=== PATIENT | male | born 1935 | race Caucasian/White ===

== ENCOUNTER → 2018-03-07 08:05 | Outpatient (CLI) | payer MEDICARE, OTHER, SELFPAY ==
[2018-03-07 10:25] LABS: Hemoglobin A1c 7.3 % (4.2-6.3)
[2018-03-07 10:26] LABS: AST(SGOT) 14 U/L (15-37); Alanine Aminotransfer ALT/SGPT 21 U/L (16-61); Albumin, Serum 3.3 g/dL (3.2-5.0); Alkaline Phosphatase 52 U/L (45-117); Anion Gap 9 (5-15); BUN 22 mg/dL (7-18); BUN/Creat Ratio 17.5 RATIO (10-20); Bilirubin, Direct 0.11 mg/dL (0.00-0.30); Calcium,Total 9.2 mg/dL (8.5-10.1); Chloride 107 mmol/L (98-107); Cholesterol 133 mg/dL (200); Creatinine, Serum 1.26 mg/dL (0.70-1.30); EST Glomerular Filtration Rate 58 mL/min (>60); Est Glom Filt Rate - Afr Amer 71 mL/min (>60); Globulin 3.2 g/dL (2.2-4.2); Glucose 167 mg/dL (74-106); High Density Lipoprotein 42 mg/dL; Potassium 4.6 mmol/L (3.5-5.1); Protein, Total 6.5 g/dL (6.4-8.2); Sodium Level 143 mmol/L (136-145); Triglycerides 75 mg/dL; Very Low Density Lipoprotein 15 mg/dL (5-40)
== END ==
PROVIDERS: Visit Provider Family Medicine
DX: E11.9 Type 2 diabetes mellitus without complications (principal); E78.5 Hyperlipidemia, unspecified
CPT/HCPCS: 36415; 80048; 80061; 80076; 83036

== ENCOUNTER → 2018-04-05 11:00 | Outpatient (CLI) | payer MEDICARE, OTHER, SELFPAY ==
--- NOTE | 2018-04-05 11:07 | EKG12_ITS ---
Test Reason : PREOP Blood Pressure : / mmHG Vent. Rate : 066 BPM Atrial Rate : 065 BPM P-R Int : 190 ms QRS Dur : 126 ms QT Int : 394 ms P-R-T Axes : 064 -46 054 degrees QTc Int : 413 ms Normal sinus rhythm Left ventricular hypertrophy with QRS widening Abnormal ECG Confirmed by JULIÁN MARES, BRYANNA ([id number]), visual effects editor TAM ARCHULETA ([id number]) on 04/10/2018 3:39:48 PM Referred By: Brian Brown Confirmed By:BRYANNA GALLEGO MD
== END ==
PROVIDERS: Family Provider Family Medicine; PCP Family Medicine; Referring Provider Surgery; Visit Provider Surgery
DX: Z01.818 Encounter for other preprocedural examination (principal); Z95.1 Presence of aortocoronary bypass graft
CPT/HCPCS: 93005

== ENCOUNTER 2018-04-19 13:42 | Inpatient (IN) | payer MEDICARE, OTHER, SELFPAY ==
[2018-04-19 10:24] LABS: Hematocrit 45.7 % (40-54); Hemoglobin 14.6 g/dl (13.0-16.5); Mean Corp Hgb Conc 31.9 g/gl (32-36); Mean Corpuscular Hgb 31.2 pg (27.0-32.0); Mean Corpuscular Volume 97.6 fL (80-94); Mean Platelet Vol. 10.5 fl (6.2-12.0); Platelet Count 171 K/mm3 (150-450); RBC Distribution Width CV 14.2 % (11.6-14.6); RBC Distribution Width SD 50.4 fl (35.1-43.9); Red Blood Count 4.68 M/mm3 (4.6-6.2); White Blood Count 17.8 K/mm3 (4.4-11.0)
[2018-04-19 10:26] LABS: Scan Indicated on CBC? Y/N NO
[2018-04-19 10:31] VITALS: BP 156/74; PULSE 52; RESP 14; TEMP 36.4; O2SAT 95; BMI 29.5
[2018-04-19 11:00] LABS: Bedside Glucose 144 mg/dL (70-110)
--- NOTE | 2018-04-19 13:49 | PCM.HP.STD ---
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 (5) Coronary artery disease Status: Chronic (6) Dyslipidemia Status: Chronic (7) History of pulmonary embolism Status: Chronic (8) Peripheral arterial disease Status: Chronic (9) Obstructive sleep apnea Status: Chronic (10) Hypertension Status: Chronic (11) History of bladder cancer Status: Chronic History of Present Illness Date of Admission: 04/19/18 Chief Complaint: Leukocytosis preoperative The patient is a 82 year old M with multiple comorbidities including coronary artery disease status post CABG in 2007, left CEA, tumor, TURBT om 09/17 amd 11/17 history of bladder and a small 3 tumor resection in October 2017 in [place] was scheduled for robotic assisted laparoscopic right inguinal hernia repair with mesh by Dr. Brown but was canceled because of leukocytosis. WBC count was found 17.8 thousand. There is no differential. A1c 7.3 in March 2018. Patient further said he has increased frequency, urgency for last few weeks along with chronic urinary incontinence. He sometimes have intermittent micturition and dribbling urine for a few weeks. Recently moved to [facility] and does not have a urologist was supposed to see Dr. Phillip next week. Denies fever, chills, URI symptoms, shortness of breath, chest pressure or palpitation. Sitting did not had major chest pain/ID or cardiac problem since bypass surgery in 2004. He also had right femoropopliteal bypass surgery. He had recent angiogram which shows 100% occlusion of [place] SFA and bypass but he has good collaterals to vessel runoff distally and foot. Right lower leg is little red but no tenderness or induration. 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) Coronary artery disease (Chronic) Dyslipidemia (Chronic) History of pulmonary embolism (Chronic) Peripheral arterial disease (Chronic) Obstructive sleep apnea (Chronic) Hypertension (Chronic) History of bladder cancer (Chronic) Medical History: Medical History (Last Updated 04/05/18 @ 10:13 by Priya Swan) Coronary artery disease I25.10 Diabetes E11.9 High cholesterol E78.00 History of pulmonary thrombosis Z86.711 PVD (peripheral vascular disease) I73.9 Sleep apnea G47.30 Hypertension I10 Allergies No Known Allergies Allergy (Verified 04/19/18 10:26) Home Medications: Ambulatory Orders Medication Instructions Recorded cilostazol 100 mg tablet 100 mg PO BID 04/05/18 clopidogrel 75 mg tablet 75 mg PO DAILY 04/05/18 lisinopril 20 mg tablet 20 mg PO BID tab 04/05/18 lovastatin 40 mg tablet 40 mg PO DAILY 04/05/18 metformin 1,000 mg tablet 1,000 mg PO BID 04/05/18 Cholecalciferol (Vitamin D3) 2,000 unit PO DAILY 04/10/18 [Vitamin D3] Cinnamon Bark [Cinnamon] 1,000 mg PO BID 04/10/18 Metoprolol Succinate [Toprol Xl] 50 mg PO BID 04/10/18 [place]-3 Fatty Acids/Fish Oil [Fish 1 each PO BID 04/10/18 Oil 1,000 mg Capsule] RX: Aspirin E.C. [Ecotrin] 81 mg PO DAILY@0800 04/10/18 Clopidogrel Bisulfate [Plavix] 75 mg PO DAILY 04/19/18 Surgical History: Surgical History (Last Updated 04/05/18 @ 10:02 by Priya Swan) History of carotid endarterectomy Z98.890 History of heart bypass surgery Z95.1 History of left cataract extraction Z98.42 History of tonsillectomy and adenoidectomy Z98.890 history of surgery for bladder tumors history right leg bypass Smoking Status: Former smoker - *Family History Paternal Family History: Family History (Last Updated 04/05/18 @ 10:03 by Priya Swan) Sister Breast cancer Diabetes Mother Diabetes Brother Heart disease Hypertension History Items: No pertinent history Review of Systems Constitutional: Denies: Chills, Fever, Weight Change HEENT: Denies: Head Aches, Sinus Congestion, Sinus Drainage Cardiovascular: Denies: Chest Pain, Palpitations Respiratory: Reports: Cough - NO cough, chronic. Denies: Shortness of breath at rest, Sputum production Gastrointestinal: Denies: Abdominal Pain, Nausea, Vomiting Genitourinary: Reports: Frequency, Hematuria, Incontinence, Nocturia, Urgency. Denies: Dysuria Musculoskeletal: Reports: Joint Pain. Denies: Joint Tenderness Skin: Reports: Skin Changes - Right lower leg. Denies: Rash, Wounds Neurological: Denies: Numbness, Tingling, Focal weakness Psychiatric: Denies: Anxiety, Depression, Homicidal Ideations, Suicidal Ideations Hematologic/ Lymphatic: Denies: Easy Bruising, Easy Bleeding VTE Information - Inpt Only VTE Present on Admission: No VTE Mechan Device Prophylaxis: None VTE Pharm Prophylaxis ordered?: Yes Patient Problems: Active and Suspected Problems (Last Updated 04/05/18 @ 10:13 by Priya Swan) Leukocytosis (Acute) Lower urinary tract symptoms (Acute) - Physical Exam General: Alert, Oriented x3, Cooperative HEENT: Atraumatic, PERRLA, EOMI, Normocephalic Neck: Supple, No JVD, Negative Carotid Bruits Lungs: Clear to auscultation, No rhonchi, No wheeze, No rales, Diminished Cardiovascular: Regular rate, Regular Rhythm, Normal S1, Normal S2, No murmurs Abdomen: Bowel Sounds Present, Soft, Non Tender, Non-Distended Extremities: Capillary Refill Less than 3 Seconds, Edema - Bilateral lower leg mild edema. Skin: Rash Present - Right lower leg erythematous. Musculoskeletal: No Tenderness to Palpation of Joints or Extremities, Arthritic Changes Neurological: Cranial nerves II-XII grossly intact, Neuro grossly intact Psych/Mental Status: Normal Affect, Appropriate Vital Signs Temp Pulse Resp BP Pulse Ox 97.5 F L 52 L 14 156/74 H 95 04/19/18 10:31 04/19/18 10:31 04/19/18 10:31 04/19/18 10:31 04/19/18 10:31 Oxygen Delivery Method Room Air Weight: 236 lb 5.369 oz Body Mass Index (BMI) 29.5 Laboratory Tests Past 24 Hrs 04/19/18 10:16 WBC 17.8 H RBC 4.68 Hgb 14.6 Hct 45.7 MCV 97.6 H MCH 31.2 MCHC 31.9 L RDW 14.2 RDW Differential 50.4 H Plt Count 171 MPV 10.5 POC Glucose 04/19/18 10:42 POC Glucose 144 H Assessment/Plan All Active Problems (Last Updated 04/05/18 @ 10:13 by Priya Swna) Leukocytosis (Acute) Lower urinary tract symptoms (Acute) The patient is a 82 year old M with multiple comorbidities including coronary artery disease status post CABG in 2007, left CEA, tumor, TURBT om 09/17 amd 11/17 history of bladder and a small 3 tumor resection in October 2017 in [place] was scheduled for robotic assisted laparoscopic right inguinal hernia repair with mesh by Dr. Brown but was canceled because of leukocytosis. WBC count was found 17.8 thousand. There is no differential. Patient further said he has increased frequency, urgency, nocturia for last few weeks along with chronic urinary incontinence. In urology outpatient note, mentioned he has sometimes blood in the urine. He sometimes have intermittent micturition and dribbling urine for a few weeks. Recently moved to [facility]. He saw Dr. Phillip on April 03, 2018. Denies fever, chills, URI symptoms, shortness of breath, chest pressure or palpitation. The patient did not had major chest pain/ID or cardiac problem since bypass surgery in 2007. He also had right femoropopliteal bypass surgery. He had recent angiogram which shows 100% occlusion of [place] SFA and bypass but he has good collaterals to vessel runoff distally and foot. He had negative nuclear stress test in November 2016. EF 61%. Right lower leg is little red but no tenderness or induration. 1. Leukocytosis with recent onset lower urinary tract symptoms suspicion of possible UTI history of bladder cancer and multiple TURBT: [facility]. UA with urine culture ordered. I do not see urgency for starting antibiotic before U/A patient is not having burning micturition or fever. After you have any urine culture is collected, patient to be started on ceftriaxone [address] Phillip called and informed and would like to see the patient. Urology consult. CRP ordered. Blood culture and chest x-ray PA and lateral ordered. 2 cardiovascular disease: Coronary artery disease status post CABG in 2007, left carotid endarterectomy, peripheral arterial disease of the right lower extremity status post femoropopliteal and total occlusion of [place] and graft: Continue aspirin, Plavix and cilostazol. Venous Doppler of lower extremity ordered Right inguinal reducible hernia: laparoscopic right inguinal hernia surgery is deferred. 3. Diabetes mellitus type 2: Last A1c 7.3 in March 2018. Accu-Chek before meals and at bedtime and cover with NovoLog sliding scale. Hold metformin. 4. Other chronic comorbidities include hypertension, dyslipidemia, obesity grade 3: Home medication reconciliation done. Code Visit Inpatient E&M: 94869 Init Hosp L3
--- NOTE | 2018-04-19 14:00 | HP.PCM_ITS ---
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 (5) Coronary artery disease Status: Chronic (6) Dyslipidemia Status: Chronic (7) History of pulmonary embolism Status: Chronic (8) Peripheral arterial disease Status: Chronic (9) Obstructive sleep apnea Status: Chronic (10) Hypertension Status: Chronic (11) History of bladder cancer Status: Chronic History of Present Illness Date of Admission: 04/19/18 Chief Complaint: Leukocytosis preoperative The patient is a 82 year old M with multiple comorbidities including coronary artery disease status post CABG in 2007, left CEA, tumor, TURBT om 09/17 amd 11/17 history of bladder and a small 3 tumor resection in October 2017 in [place] was scheduled for robotic assisted laparoscopic right inguinal hernia repair with mesh by Dr. Brown but was canceled because of leukocytosis. WBC count was found 17.8 thousand. There is no differential. A1c 7.3 in March 2018. Patient further said he has increased frequency, urgency for last few weeks along with chronic urinary incontinence. He sometimes have intermittent micturition and dribbling urine for a few weeks. Recently moved to [facility] and does not have a urologist was supposed to see Dr. Phillip next week. Denies fever, chills, URI symptoms, shortness of breath, chest pressure or pa lpitation. Sitting did not had major chest pain/MO or cardiac problem since bypass surgery in 2004. He also had right femoropopliteal bypass surgery. He had recent angiogram which shows 100% occlusion of [place] SFA and bypass but he has good collaterals to vessel runoff distally and foot. Right lower leg is little red but no tenderness or induration. 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) Coronary artery disease (Chronic) Dyslipidemia (Chronic) History of pulmonary embolism (Chronic) Peripheral arterial disease (Chronic) Obstructive sleep apnea (Chronic) Hypertension (Chronic) History of bladder cancer (Chronic) Medical History: Medical History (Last Updated 04/05/18 @ 10:13 by Priya Swan) Coronary artery disease I25.10 Diabetes E11.9 High cholesterol E78.00 History of pulmonary thrombosis Z86.711 PVD (peripheral vascular disease) I73.9 Sleep apnea G47.30 Hypertension I10 Allergies No Known Allergies Allergy (Verified 04/19/18 10:26) Home Medications: Ambulatory Orders Medication Instructions Recorded cilostazol 100 mg tablet 100 mg PO BID 04/05/18 clopidogrel 75 mg tablet 75 mg PO DAILY 04/05/18 lisinopril 20 mg tablet 20 mg PO BID tab 04/05/18 lovastatin 40 mg tablet 40 mg PO DAILY 04/05/18 metformin 1,000 mg tablet 1,000 mg PO BID 04/05/18 Cholecalciferol (Vitamin D3) 2,000 unit PO DAILY 04/10/18 [Vitamin D3] Cinnamon Bark [Cinnamon] 1,000 mg PO BID 04/10/18 Metoprolol Succinate [Toprol Xl] 50 mg PO BID 04/10/18 [place]-3 Fatty Acids/Fish Oil [Fish 1 each PO BID 04/10/18 Oil 1,000 mg Capsule] RX: Aspirin E.C. [Ecotrin] 81 mg PO DAILY@0800 04/10/18 Clopidogrel Bisulfate [Plavix] 75 mg PO DAILY 04/19/18 Surgical History: Surgical History (Last Updated 04/05/18 @ 10:02 by Priya Swan) History of carotid endarterectomy Z98.890 History of heart bypass surgery Z95.1 History of left cataract extraction Z98.42 History of tonsillectomy and adenoidectomy Z98.890 history of surgery for bladder tumors history right leg bypass Smoking Status: Former smoker - *Family History Paternal Family History: Family History (Last Updated 04/05/18 @ 10:03 by Priya Swan) Sister Breast cancer Diabetes Mother Diabetes Brother Heart disease Hypertension History Items: No pertinent history Review of Systems Constitutional: Denies: Chills, Fever, Weight Change HEENT: Denies: Head Aches, Sinus Congestion, Sinus Drainage Cardiovascular: Denies: Chest Pain, Palpitations Respiratory: Reports: Cough - NO cough, chronic. Denies: Shortness of breath at rest, Sputum production Gastrointestinal: Denies: Abdominal Pain, Nausea, Vomiting Genitourinary: Reports: Frequency, Hematuria, Incontinence, Nocturia, Urgency. Denies: Dysuria Musculoskeletal: Reports: Joint Pain. Denies: Joint Tenderness Skin: Reports: Skin Changes - Right lower leg. Denies: Rash, Wounds Neurological: Denies: Numbness, Tingling, Focal weakness Psychiatric: Denies: Anxiety, Depression, Homicidal Ideations, Suicidal Ideatio ns Hematologic/ Lymphatic: Denies: Easy Bruising, Easy Bleeding VTE Information - Inpt Only VTE Present on Admission: No VTE Mechan Device Prophylaxis: None VTE Pharm Prophylaxis ordered?: Yes Patient Problems: Active and Suspected Problems (Last Updated 04/05/18 @ 10:13 by Priya Swan) Leukocytosis (Acute) Lower urinary tract symptoms (Acute) - Physical Exam General: Alert, Oriented x3, Cooperative HEENT: Atraumatic, PERRLA, EOMI, Normocephalic Neck: Supple, No JVD, Negative Carotid Bruits Lungs: Clear to auscultation, No rhonchi, No wheeze, No rales, Diminished Cardiovascular: Regular rate, Regular Rhythm, Normal S1, Normal S2, No murmurs Abdomen: Bowel Sounds Present, Soft, Non Tender, Non-Distended Extremities: Capillary Refill Less than 3 Seconds, Edema - Bilateral lower leg mild edema. Skin: Rash Present - Right lower leg erythematous. Musculoskeletal: No Tenderness to Palpation of Joints or Extremities, Arthritic Changes Neurological: Cranial nerves II-XII grossly intact, Neuro grossly intact Psych/Mental Status: Normal Affect, Appropriate Vital Signs Temp Pulse Resp BP Pulse Ox 97.5 F L 52 L 14 156/74 H 95 04/19/18 10:31 04/19/18 10:31 04/19/18 10:31 04/19/18 10:31 04/19/18 10:31 Oxygen Delivery Method Room Air Weight: 236 lb 5.369 oz Body Mass Index (BMI) 29.5 Laboratory Tests Past 24 Hrs 04/19/18 10:16 WBC 17.8 H RBC 4.68 Hgb 14.6 Hct 45.7 MCV 97.6 H MCH 31.2 MCHC 31.9 L RDW 14.2 RDW Differential 50.4 H Plt Count 171 MPV 10.5 POC Glucose 04/19/18 10:42 POC Glucose 144 H Assessment/Plan All Active Problems (Last Updated 04/05/18 @ 10:13 by Priya Swan) Leukocytosis (Acute) Lower urinary tract symptoms (Acute) The patient is a 82 year old M with multiple comorbidities including coronary artery disease status post CABG in 2007, left CEA, tumor, TURBT om 09/17 amd 11/17 history of bladder and a small 3 tumor resection in October 2017 in [place] was scheduled for robotic assisted laparoscopic right inguinal hernia repair with mesh by Dr. Brown but was canceled because of leukocytosis. WBC count was found 17.8 thousand. There is no differential. Patient further said he has increased frequency, urgency, nocturia for last few weeks along with chronic urinary incontinence. In urology outpatient note, mentioned he has sometimes blood in the urine. He sometimes have intermittent micturition and dribbling urine for a few weeks. Recently moved to [facility]. He saw Dr. Phillip on April 03, 2018. Denies fever, chills, URI symptoms, shortness of breath, chest pressure or palpitation. The patient did not had major chest pain/MO or cardiac problem s molly bypass surgery in 2007. He also had right femoropopliteal bypass surgery. He had recent angiogram which shows 100% occlusion of [place] SFA and bypass but he has good collaterals to vessel runoff distally and foot. He had negative nuclear stress test in November 2016. EF 61%. Right lower leg is little red but no tenderness or induration. 1. Leukocytosis with recent onset lower urinary tract symptoms suspicion of possible UTI history of bladder cancer and multiple TURBT: [facility]. UA with urine culture ordered. I do not see urgency for starting antibiotic before U/A patient is not having burning micturition or fever. After you have any urine culture is collected, patient to be started on ceftriaxone [address] Phillip called and informed and would like to see the patient. Urology consult. CRP ordered. Blood culture and chest x-ray PA and lateral ordered. 2 cardiovascular disease: Coronary artery disease status post CABG in 2007, left carotid endarterectomy, peripheral arterial disease of the right lower extremity status post femoropopliteal and total occlusion of [place] and graft: Continue aspirin, Plavix and cilostazol. Venous Doppler of lower extremity ordered Right inguinal reducible hernia: laparoscopic right inguinal hernia surgery is deferred. 3. Diabetes mellitus type 2: Last A1c 7.3 in March 2018. Accu-Chek before meals and at bedtime and cover with NovoLog sliding scale. Hold metformin. 4. Other chronic comorbidities include hypertension, dyslipidemia, obesity grade 3: Home medication reconciliation done. Code Visit Inpatient E&M: 40326 Init Hosp L3
[2018-04-19 14:05] VITALS: BMI 29.2
--- NOTE | 2018-04-19 14:06 | US_ITS ---
STUDY: RENAL ULTRASOUND - COMPLETE REASON FOR EXAM: Male, 82 years old. Renal insufficiency TECHNIQUE: Ultrasound evaluation of the kidneys was performed with real-time and static abad-scale imaging. COMPARISON: None available. FINDINGS: RIGHT KIDNEY: Normal location of the right kidney, which is normal in size. The right kidney measures 13.0 cm. There is a normal cortex of the right kidney. There is no right renal mass or cyst. There are no right renal calculi. There is no right hydronephrosis. DISTAL RIGHT URETER: There is non-visualization of the distal right ureter. There is no demonstrated right ureterovesical junction calculus. There is no demonstrated right ureteral jet. LEFT KIDNEY: Normal location of the left kidney, which is normal in size. The left kidney measures 12.5 cm. There is a normal cortex of the left kidney. There is a 6.5 x 5.1 x 5.0 cm cyst in the upper pole of the left kidney. There are no left renal calculi. There is no left hydronephrosis. DISTAL LEFT URETER: There is non-visualization of the distal left ureter. There is no demonstrated left ureterovesical junction calculus. There is no demonstrated left ureteral jet. BLADDER: The urinary bladder is partially distended and appears unremarkable. US/Kidney and Bladder IMPRESSION: Simple cyst in the left kidney. Otherwise, normal kidneys. Electronically Signed: Maycol Diaz, at 19:48 EDT Tel , Service support ,
--- NOTE | 2018-04-19 14:15 | VDLE_ITS ---
Reason For Study: Redness of leg RIGHT LEFT GSV is normal. GSV is normal. CFV is compressible, spontaneous, phasic, CFV is compressible, spontaneous, phasic, competent and demonstrates normal competent, and demonstrates normal augmentation. augmentation. FV is compressible, spontaneous, phasic, FV is compressible, spontaneous, phasic, competent and demonstrates normal competent and demonstrates normal augmentation. augmentation. POP V is compressible, spontaneous, phasic, POP V is compressible, spontaneous, phasic, competent and demonstrates normal competent and demonstrates normal augmentation. augmentation. T/P Trunk is compressible. T/P Trunk is compressible. PTV is compressible. PTV is compressible. RT PerV is compressible. LT PerV is compressible. Procedure Exam performed portable in patient room. A preliminary report was called and/or faxed to [facility] @ 3:05 pm. Interpretation Summary No evidence for acute deep venous thrombosis bilateral lower extremities with patent and compressible bilateral great saphenous veins. Ordering Physician: Gómez Joseph Referring Physician: Livan Mcfarland Performed By: Priya Shore RVT, RDCS and Student
[2018-04-19 15:30] LABS: BUN 15 mg/dL (7-18); Calcium,Total 9.1 mg/dL (8.5-10.1); Chloride 108 mmol/L (98-107); EST Glomerular Filtration Rate 76 mL/min (>60); Est Glom Filt Rate - Afr Amer 92 mL/min (>60); Estimated Creatinine Clearance 70.42 ml/min; Glucose 135 mg/dL (74-106); Potassium 4.6 mmol/L (3.5-5.1); Sodium Level 142 mmol/L (136-145)
[2018-04-19 15:31] LABS: Anion Gap 4 (5-15); CRP 5.87 mg/L (0.0-3.0)
--- NOTE | 2018-04-19 15:32 | RAD_ITS ---
STUDY: X-RAY CHEST REASON FOR EXAM: Male, 82 years old. Cough TECHNIQUE: Frontal and lateral views of the chest COMPARISON: None. FINDINGS: The lungs are clear. There are no pleural effusions. There is no pneumothorax. The heart is normal in size. The patient is status post sternotomy and coronary artery bypass. The visualized osseous structures are within normal limits. RAD/Chest PA and Lateral IMPRESSION: No acute thoracic pathology. Electronically Signed: Maycol Diaz, at 16:35 EDT Tel , Service support ,
--- NOTE | 2018-04-19 16:18 | CON.PCM_ITS ---
Reason for Consult Date of Consultation: 04/19/18 Reason for Consultation: History of bladder cancer History of Present Illness: The patient is a 82 year old male with a history of a very large bladder tumor removed and after this he had BCG therapy that he had recurrence another course of BCG therapy he is new to the area and today he was going to have a hernia surgery which was canceled he was admitted to the hospital was asked to see the patient while he was in the hospital so we did a review of his symptoms and today also did a cystoscopy 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) Coronary artery disease (Chronic) Dyslipidemia (Chronic) History of pulmonary embolism (Chronic) Peripheral arterial disease (Chronic) Obstructive sleep apnea (Chronic) Hypertension (Chronic) History of bladder cancer (Chronic) Medical History: Medical History (Last Updated 04/05/18 @ 10:13 by Priya Swan) Coronary artery disease I25.10 Diabetes E11.9 High cholesterol E78.00 History of pulmonary thrombosis Z86.711 PVD (peripheral vascular disease) I73.9 Sleep apnea G47.30 Hypertension I10 Allergies No Known Allergies Allergy (Verified 04/19/18 10:26) Home Medications: Ambulatory Orders Medication Instructions Recorded cilostazol 100 mg tablet 100 mg PO BID 04/05/18 clopidogrel 75 mg tablet 75 mg PO DAILY 04/05/18 lisinopril 20 mg tablet 20 mg PO BID tab 04/05/18 lovastatin 40 mg tablet 40 mg PO DAILY 04/05/18 metformin 1,000 mg tablet 1,000 mg PO BID 04/05/18 Aspirin E.C. [Ecotrin] 81 mg PO DAILY@0800 04/10/18 Cholecalciferol (Vitamin D3) 2,000 unit PO DAILY 04/10/18 [Vitamin D3] Cinnamon Bark [Cinnamon] 1,000 mg PO BID 04/10/18 Metoprolol Succinate [Toprol Xl] 50 mg PO BID 04/10/18 [place]-3 Fatty Acids/Fish Oil [Fish 1 each PO BID 04/10/18 Oil 1,000 mg Capsule] Clopidogrel Bisulfate [Plavix] 75 mg PO DAILY 04/19/18 Surgical History: Surgical History (Last Updated 04/05/18 @ 10:02 by Priya Swan) History of carotid endarterectomy Z98.890 History of heart bypass surgery Z95.1 History of left cataract extraction Z98.42 History of tonsillectomy and adenoidectomy Z98.890 history of surgery for bladder tumors history right leg bypass Surgical History: - - TURBT multiple Lives: Spouse/ Significant Other Smoking Status: Former smoker Tobacco Use: Non-smoker Alcohol: None Drugs: None - *Family History Paternal Family History: Family History (Last Updated 04/05/18 @ 10:03 by Priya Swan) Sister Breast cancer Diabetes Mother Diabetes Brother Heart disease Hypertension History Items: No pertinent history Review of Systems Constitutional: Denies: Chills, Fever, Weight Change HEENT: Denies: Head Aches, Sinus Congestion, Sinus Drainage Cardiovascular: Denies: Chest Pain, Palpitations Respiratory: Denies: Cough, Shortness of breath at rest, Sputum production Gastrointestinal: Denies: Abdominal Pain, Nausea, Vomiting Genitourinary: Denies: Dysuria Musculoskeletal: Denies: Joint Pain, Joint Tenderness Skin: Denies: Rash, Wounds Neurological: Denies: Numbness, Tingling, Focal weakness Psychiatric: Denies: Anxiety, Depression, Homicidal Ideations, Suicidal Ideat ions Hematologic/ Lymphatic: Denies: Easy Bruising, Easy Bleeding Physical Exam - Physical Exam Vital Signs Temp 97.5 F L 04/19/18 10:31 Pulse 52 L 04/19/18 10:31 Resp 14 04/19/18 10:31 BP 156/74 H 04/19/18 10:31 Pulse Ox 95 04/19/18 10:31 Intake & Output 04/17/18 04/18/18 04/19/18 23:59 23:59 23:59 Weight: 106 kg General: Alert, Oriented x3 HEENT: Atraumatic Oral: Moist Mucosa Neck: Supple Lungs: Normal air movement Cardiovascular: Regular rate Abdomen: Soft Rectal: Exam deferred Laboratory Tests Past 24 Hrs 04/19/18 04/19/18 10:16 15:00 WBC 17.8 H RBC 4.68 Hgb 14.6 Hct 45.7 MCV 97.6 H MCH 31.2 MCHC 31.9 L RDW 14.2 RDW Differential 50.4 H Plt Count 171 MPV 10.5 Sodium 142 Potassium 4.6 Chloride 108 H Carbon Dioxide 30.0 Anion Gap 4 L BUN 15 Creatinine 1.00 Estim Creat Clear Calc 70.42 Est GFR (MDRD) Af Amer 92 Est GFR (MDRD) Non-Af 76 BUN/Creatinine Ratio 15.0 Glucose 135 H Calcium 9.1 C-React Prot Ext Range 5.87 H Assessment/Plan All Active Problems (Last Updated 04/05/18 @ 10:13 by Priya Swan) Leukocytosis (Acute) Lower urinary tract symptoms (Acute) 82-year-old male has a history of bladder cancer, surgery was canceled today because of elevated white blood count I do not think this is related to his bladder cancer today we did a cystoscopy which was positive for multiple recurrences within his bladder.
--- NOTE | 2018-04-19 16:18 | PCM.OPRPT ---
Report of Operation Date of Procedure: 04/19/18 Pre-Operative Diagnosis: History of bladder cancer Post-Operative Diagnosis: Same Surgery/Procedure Performed:: Cystoscopy Description of Surgical Findings:: 10-year-old with a history of bladder cancer, penis was prepped and draped in usual sterile fashion went into the bladder with a flexible cystoscope, the entire length the urethra is normal, the prostate was normal, the prostate was slight enlargement of the prostate but no significant obstruction, within the bladder trigone was identified left and right ureteral orifice was normal he did have some papillary tumors in the posterior aspect of the bladder multiple areas within the posterior aspect and right lateral wall the bladder that appeared to be recurrence appears to have 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 Type of Anesthesia:: Local Drains: None - Admit VTE Documentation VTE Present on Admission: No
[2018-04-19] MEDS: Heparin Injection (Vial) 5,000 UNIT/ML VIAL 5000 UNIT SC (16:43)
[2018-04-19] MEDS: Cilostazol 50 MG Tablet 100 MG PO (16:44)
[2018-04-19 16:51] LABS: Bedside Glucose 135 mg/dL (70-110)
[2018-04-19 16:53] VITALS: BP 188/95; PULSE 70; RESP 18; TEMP 36.7; O2SAT 95
[2018-04-19 17:00] VITALS: BP 188/95; PULSE 70
[2018-04-19] MEDS: Metoprolol Tartrate 50 MG Tablet PO (17:00)
[2018-04-19] MEDS: 0.9% Normal Saline 1,000 ML 75 ML IV (19:01)
[2018-04-19 20:28] VITALS: BP 147/93; PULSE 66; RESP 18; TEMP 36.3; O2SAT 95
[2018-04-19 20:47] LABS: Bacteria 0 SEEN /hpf (None Seen); Mucous, Urine 0 SEEN /hpf (<or=2+); White Blood Cells 0 SEEN /hpf (0-5)
[2018-04-19 21:06] LABS: Color, Urine Yellow (Yellow); Glucose, Dipstick 100 mg/dl (Normal); Ketone-Dipstick Negative (Negative); Leukocyte Esterase-Dipstick Negative /ul (Negative); Nitrite-Dipstick Negative (Negative); Occult Blood-Urine 250 /ul (Negative); Protein-Dipstick 15 mg/dl (Negative); Urine Bilirubin Dipstick Negative (Negative); Urine Urobilinogen 1 mg/dl (Normal); Urine pH 6.5 (5.0 - 8.0)
[2018-04-19 21:25] LABS: Red Blood Cells-Urine 10-25 SEEN /hpf (0-5); Squamous Epithelial Cells - UA 0-5 SEEN /hpf (0-5)
[2018-04-19 21:26] LABS: Urine Clarity Sl Cldy (Clear)
[2018-04-19 21:28] LABS: Amorphous Sediment 1+ URATE
[2018-04-19] MEDS: Lisinopril 20 MG Tablet PO (21:51)
[2018-04-19] MEDS: Insulin Lispro 100 UNIT/ML INSULN.PEN SQ (21:51)
[2018-04-19] MEDS: Atorvastatin Calcium 10 MG Tablet PO (21:51)
[2018-04-19] MEDS: Ceftriaxone 1 GM/50 ML BAG IV (21:53)
[2018-04-19 21:56] LABS: Bedside Glucose 162 mg/dL (70-110)
[2018-04-20 02:22] VITALS: BP 138/83; PULSE 68; RESP 18; TEMP 36.8; O2SAT 96
[2018-04-20] MEDS: Insulin Lispro 100 UNIT/ML INSULN.PEN SQ (06:03)
[2018-04-20 06:05] LABS: Bedside Glucose 165 mg/dL (70-110)
[2018-04-20 06:37] LABS: Absolute Neutrophil Count 3.2 X10^3/uL (2.0-7.7); Basophil# 0.05 X10^3/uL; Basophil% 0.3 % (0-1); Eosinophil# 0.26 X10^3/uL; Eosinophils% 1.7 % (0-5); Hematocrit 41.5 % (40-54); Hemoglobin 13.3 g/dl (13.0-16.5); Lymphocyte % 72.8 % (19-41); Mean Corpuscular Hgb 30.9 pg (27.0-32.0); Mean Corpuscular Volume 96.3 fL (80-94); Mean Platelet Vol. 10.9 fl (6.2-12.0); Monocyte# 0.71 X10^3/uL; Monocyte% 4.5 % (0-10); Neutrophil # 3.23 X10^3/uL (2.7-7.7); Neutrophil % 20.6 % (47-70); Platelet Count 164 K/mm3 (150-450); RBC Distribution Width CV 14.1 % (11.6-14.6); RBC Distribution Width SD 49.7 fl (35.1-43.9); Red Blood Count 4.31 M/mm3 (4.6-6.2); White Blood Count 15.7 K/mm3 (4.4-11.0)
[2018-04-20 06:41] LABS: Differential Indicated SCAN CRITERIA MET; POSITIVE COUNT NO; POSITIVE DIFFERENTIAL YES; POSITIVE MORPHOLOGY YES
[2018-04-20 07:11] LABS: Differential Comment SCANNED; Reactive Lymphocyte 3+
[2018-04-20 07:52] VITALS: BP 154/95; PULSE 69; RESP 18; TEMP 35.8; O2SAT 95
[2018-04-20] MEDS: Aspirin E.C. 81 MG Tablet PO (07:56)
[2018-04-20] MEDS: Cilostazol 50 MG Tablet 100 MG PO (07:56)
--- NOTE | 2018-04-20 09:41 | PCM.PN.HOSP ---
Patient Problems: Active and Suspected Problems (Last Updated 04/05/18 @ 10:13 by Priya Swan) Leukocytosis (Acute) Lower urinary tract symptoms (Acute) Vitals/I&O's: Vital Signs Temp Pulse Resp BP Pulse Ox 96.5 F L 69 18 154/95 H 95 04/20/18 07:52 04/20/18 07:52 04/20/18 07:52 04/20/18 07:52 04/20/18 07:52 Oxygen Delivery Method Room Air Weight: 233 lb 11.04 oz Body Mass Index (BMI) 29.2 Intake and Output for Last 24 Hours 04/18/18 04/19/18 04/20/18 23:59 23:59 23:59 Intake Total 1532 / 1532 Output Total 1850 / 1850 Balance -318 / -318 Laboratory Results 04/19/18 10:16: WBC 17.8 H, RBC 4.68, Hgb 14.6, Hct 45.7, MCV 97.6 H, MCH 31.2, MCHC 31.9 L, RDW 14.2, RDW Differential 50.4 H, Plt Count 171, MPV 10.5 04/19/18 10:42: POC Glucose 144 H 04/19/18 15:00: Sodium 142, Potassium 4.6, Chloride 108 H, Carbon Dioxide 30.0, Anion Gap 4 L, BUN 15, Creatinine 1.00, Estim Creat Clear Calc 70.42, Est GFR (MDRD) Af Amer 92, Est GFR (MDRD) Non-Af 76, BUN/Creatinine Ratio 15.0, Glucose 135 H, Calcium 9.1, C-React Prot Ext Range 5.87 H 04/19/18 16:42: POC Glucose 135 H 04/19/18 20:35: Urine Color Yellow, Urine Clarity Sl Cldy, Urine pH 6.5, Ur Specific [place] 1.010, Urine Protein 15 H, Urine Glucose (UA) 100 H, Urine Ketones Negative, Urine Occult Blood 250 H, Urine Nitrite Negative, Urine Bilirubin Negative, Urine Urobilinogen 1 H, Ur Leukocyte Esterase Negative, Urine RBC 10-25 SEEN, Urine WBC 0 SEEN, Ur Squamous Epith Cells 0-5 SEEN, Amorphous Sediment 1+ URATE, Urine Bacteria 0 SEEN, Urine Mucus 0 SEEN 04/19/18 21:43: POC Glucose 162 H 04/20/18 05:29: WBC 15.7 H, RBC 4.31 L, Hgb 13.3, Hct 41.5, MCV 96.3 H, MCH 30.9, MCHC 32.0, RDW 14.1, RDW Differential 49.7 H, Plt Count 164, MPV 10.9, Immature Gran % (Auto) 0.100, Neut % (Auto) 20.6 L, Lymph % (Auto) 72.8 H, [place] % (Auto) 4.5, Eos % (Auto) 1.7, Baso % (Auto) 0.3, Absolute Neuts (auto) 3.2, Absolute Lymphs (auto) 11.40 H, Total Counted Not Reportable, Differential Comment SCANNED, Reactive Lymphocytes 3+ 04/20/18 06:01: POC Glucose 165 H Current Medications Acetaminophen (Tylenol) 650 mg PO Q6H PRN PRN PRN Reason: Mild Pain (scale 0-3)/T>100.7 Aspirin (Ecotrin) 81 mg PO DAILY@0800 [facility] Last Admin: 04/20/18 07:56 Dose: 81 mg Atorvastatin Calcium (Lipitor) 10 mg PO QHS [facility] Last Admin: 04/19/18 21:51 Dose: 10 mg Bisacodyl (Dulcolax) 10 mg RECTAL DAILY PRN PRN PRN Reason: Constipation Cholecalciferol (Vitamin D) 2,000 unit PO DAILY [facility] Cilostazol (Pletal) 100 mg PO BIDAC [facility] Last Admin: 04/20/18 07:56 Dose: 100 mg Clopidogrel Bisulfate (Plavix) 75 mg PO DAILY [facility] Dextrose (D50w Syringe) 0 gm IV X1 PRN; Protocol PRN Reason: Hypoglycemia Docusate Sodium (Colace) 200 mg PO BID PRN PRN PRN Reason: Constipation Glucagon () 1 mg IM .X1 PRN PRN Reason: Hypoglycemia Heparin Sodium (Porcine) (Heparin Na) 5,000 unit SC BID [facility] Last Admin: 04/19/18 21:52 Dose: Not Given Ceftriaxone Sodium (Rocephin) 1 gm in 50 mls @ 100 mls/hr IV Q24 [facility] Last Admin: 04/19/18 21:53 Dose: 100 mls/hr Insulin Human Lispro (Humalog Kwikpen (Bkc)) 0 unit SQ ACHS [facility]; Protocol Last Admin: 04/20/18 06:03 Dose: 1 u Lisinopril (Zestril) 20 mg PO BID [facility] Last Admin: 04/19/18 21:51 Dose: 20 mg Metoprolol Tartrate (Lopressor (Beta Shivani)) 50 mg PO BID [facility] Last Admin: 04/19/18 21:46 Dose: Not Given Ondansetron HCl (Zofran) 4 mg IV Q8H PRN PRN PRN Reason: Nausea Oxycodone HCl (Oxyir) 5 mg PO Q4H PRN PRN PRN Reason: Moderate Pain (pain scale 4-5) Polyethylene Glycol (Miralax) 17 gm PO DAILY [facility] Sodium Chloride () 5 - 30 ml IV UD PRN PRN Reason: SALINE FLUSH Medical Necessity - Tobacco Use Smoking Status: Former smoker Tobacco Use: Non-smoker Assessment/Plan All Active Problems (Last Updated 04/05/18 @ 10:13 by Priya Swan) Leukocytosis (Acute) Lower urinary tract symptoms (Acute)
[2018-04-20 10:46] VITALS: BP 145/90; PULSE 95; RESP 18; TEMP 35.9; O2SAT 96
[2018-04-20 10:47] VITALS: BP 145/90; PULSE 95
[2018-04-20] MEDS: Metoprolol Tartrate 50 MG Tablet PO (10:47)
[2018-04-20] MEDS: Clopidogrel Bisulfate 75 MG Tablet PO (10:48)
[2018-04-20] MEDS: Polyethylene Glycol 3350 17 GM PACKET PO (10:48)
[2018-04-20] MEDS: Lisinopril 20 MG Tablet PO (10:49)
--- NOTE | 2018-04-20 10:50 | DCINST_ITS ---
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) Coronary artery disease (Chronic) Dyslipidemia (Chronic) History of pulmonary embolism (Chronic) Peripheral arterial disease (Chronic) Obstructive sleep apnea (Chronic) Hypertension (Chronic) History of bladder cancer (Chronic) You will use the following diet at home:: Calorie/Carbohydrate Controlled (specify 1200, 1400, etc) - 1800 ADA diet, Cardiac Your food should be the consistency of: Regular Discharge Activity: May Not Drive Weight Bearing Status: Weight bearing as tolerated Call your doctor if you observe: Fever of 101 or Higher, Inability to urinate, Inability to have a bowel movement, Shortness of breath, Dizziness, Fainting spells, Swelling in the ankles, Chest pain Allergies/Adverse Reactions: Allergies No Known Allergies Allergy (Verified 04/19/18 10:26) Medications to take at Discharge cilostazol 100 mg tablet 100 mg PO BID 04/05/18 clopidogrel 75 mg tablet 75 mg PO DAILY 04/05/18 lisinopril 20 mg tablet 20 mg PO BID tab 04/05/18 lovastatin 40 mg tablet 40 mg PO DAILY 04/05/18 metformin 1,000 mg tablet 1,000 mg PO BID 04/05/18 Aspirin E.C. [Ecotrin] 81 mg PO DAILY@0800 04/10/18 Cholecalciferol (Vitamin D3) [Vitamin D3] 2,000 unit PO DAILY 04/10/18 Cinnamon Bark [Cinnamon] 1,000 mg PO BID 04/10/18 Metoprolol Succinate [Toprol Xl] 50 mg PO BID 04/10/18 [place]-3 Fatty Acids/Fish Oil [Fish Oil 1,000 mg Capsule] 1 each PO BID 04/10/18 Clopidogrel Bisulfate [Plavix] 75 mg PO DAILY 04/19/18 Primary Care Physician: Livan Mcfarland MD [Primary Care Provider] - Please follow up with your Primary Care Physician in: in 1-2 weeks Test Results: Test results from this visit will be discussed in further detail at your follow- up appointment, if applicable. Please Follow Up With: Brian Brown MD When: in 1-2 weeks to reschedule surgery Please Follow Up With: Joe Phillip MD When: call office to schedule
--- NOTE | 2018-04-20 10:51 | DS.PCM_ITS ---
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) Coronary artery disease (Chronic) Dyslipidemia (Chronic) History of pulmonary embolism (Chronic) Peripheral arterial disease (Chronic) Obstructive sleep apnea (Chronic) Hypertension (Chronic) History of bladder cancer (Chronic) Hospital Course and Treatment Summary of Care Provided: The patient is a 82 year old M with multiple comorbidities including coronary artery disease status post CABG in 2007, left CEA, tumor, TURBT om 09/17 amd 11/17 history of bladder and a small 3 tumor resection in October 2017 in [place] was scheduled for robotic assisted laparoscopic right inguinal hernia repair with mesh by Dr. Brown but was canceled because of leukocytosis. WBC count was found 17.8 thousand. There is no differential. Patient on further history was noticed that he has a stable increased frequency and urgency for last 2-3 weeks without burning micturition. His chronic urinary incontinence and dribbling of urine. Recently moved to [facility]. He saw Dr. Phillip on April 03, 2018. Denies fever, chills, URI symptoms, shortness of breath, chest pressure or palpitation. Right lower leg is little red but no tenderness or induration. 1. Leukocytosis with recent onset lower urinary tract symptoms suspicion of possible UTI history of bladder cancer and multiple TURBT: [facility] Venous Doppler of lower extremities was done and came out negative or DVT. Chest x-ray PA and lateral shows no acute pathology. UA was negative with WBC of 0, RBC 10-25 cells/2 mild microscopic hematuria, glucosuria, mild proteinuria 15. Blood cultures and urine cultures are pending. After urine sample was collected, 1 dose of IV ceftriaxone given empirically in view of history of complicated history of bladder cancer and possible UTI. After it was found, UA does not meet criteria for UTI, antibiotic discontinued. CRP elevated. No rash. Leukocytosis improved. Shows mainly lymphocyte predominance 72.8%, neutrophil 20.6. ID was consulted. It was concluded that patient does not have evidence of active infectious process; therefore no need for antibiotic. Patient need review of previous medical record of CBC to look for leukocytosis or evidence of CLL. If WBC continues to be high it needs hematology consult as an outpatient. For now patient is being discharged home without antibiotics and advised to follow-up with PCP, Dr. Livan Olsen to review previous medical record and do needful. 2. Bladder cancer status post cystoscopy with evidence of recurrent low-grade small papillary tumors: patient had cystoscopy by Dr. Phillip and was found prostate mild enlargement with no significant obstruction. There were some small papillary tumors on the posterior aspect of bladder and right lateral wall that appeared to be recurrent with low grade recurrence CIS as per operative note. Follow with Dr. Phillip. cardiovascular disease: Coronary artery disease status post CABG in 2007, left carotid endarterectomy, peripheral arterial disease of the right lower extremity status post femoropopliteal and total occlusion of nikolai and graft: Continue aspirin, Plavix and cilostazol. Venous Doppler of lower extremity ordered Right inguinal reducible hernia: laparoscopic right inguinal hernia surgery was postponed. Dr. Chao Brown was called and hospital update was exchanged. No infectious process was found and it was communicated to him. His office will schedule the patient for right inguinal laparoscopic hernia repair. 3. Diabetes mellitus type 2: Last A1c 7.3 in March 2018. Accu-Chek before meals and at bedtime and cover with NovoLog sliding scale. Hold metformin. 4. Other chronic comorbidities include hypertension, dyslipidemia, obesity grade 3: Home medication reconciliation done. Discharge medication reconciliation done. Follow-up instructions given. Discharge medication and follow-up instructions discussed with the patient along with his . Total time spent, exact 35 minutes, on discharge meds reconciliation, examination, more than half time spent on review of imaging and blood test and discussion with the patient and his on the discharge follow-up instructions. - Physical Exam General: Alert, Oriented x3, Cooperative HEENT: Atraumatic, PERRLA, EOMI, Normocephalic Neck: Supple, No JVD, Negative Carotid Bruits Lungs: Clear to auscultation, Normal air movement, No rhonchi, No wheeze, No rales Cardiovascular: Regular rate, Normal S1, Normal S2, No murmurs Abdomen: Bowel Sounds Present, Soft, Non Tender, Non-Distended Extremities: Capillary Refill Less than 3 Seconds, Edema - right leg slightly more edematous than left leg probably secondary to chronic nikolai SFA and femoropopliteal graft 100% occlusion with collateral circulation Skin: No rashes, No breakdown Musculoskeletal: No Tenderness to Palpation of Joints or Extremities Neurological: Cranial nerves II-XII grossly intact Psych/Mental Status: Normal Affect, Appropriate Vital Signs Temp Pulse Resp BP Pulse Ox 96.7 F L 95 18 145/90 H 96 04/20/18 10:46 04/20/18 10:47 04/20/18 10:46 04/20/18 10:47 04/20/18 10:46 Oxygen Delivery Method Room Air Weight: 233 lb 11.04 oz Body Mass Index (BMI) 29.2 Intake and Output for Last 24 Hours 04/18/18 04/19/18 04/20/18 23:59 23:59 23:59 Intake Total 1532 / 1532 Output Total 1850 / 1850 Balance -318 / -318 Laboratory Tests Past 24 Hrs 04/19/18 04/19/18 04/20/18 15:00 20:35 05:29 WBC 15.7 H RBC 4.31 L Hgb 13.3 Hct 41.5 MCV 96.3 H MCH 30.9 MCHC 32.0 RDW 14.1 RDW Differential 49.7 H Plt Count 164 MPV 10.9 Immature Gran % (Auto) 0.100 Neut % (Auto) 20.6 L Lymph % (Auto) 72.8 H [place] % (Auto) 4.5 Eos % (Auto) 1.7 Baso % (Auto) 0.3 Absolute Neuts (auto) 3.2 Absolute Lymphs (auto) 11.40 H Total Counted Not Reportable Differential Comment SCANNED Reactive Lymphocytes 3+ Sodium 142 Potassium 4.6 Chloride 108 H Carbon Dioxide 30.0 Anion Gap 4 L BUN 15 Creatinine 1.00 Estim Creat Clear Calc 70.42 Est GFR (MDRD) Af Amer 92 Est GFR (MDRD) Non-Af 76 BUN/Creatinine Ratio 15.0 Glucose 135 H Calcium 9.1 C-React Prot Ext Range 5.87 H Urine Color Yellow Urine Clarity Sl Cldy Urine pH 6.5 Ur Specific [place] 1.010 Urine Protein 15 H Urine Glucose (UA) 100 H Urine Ketones Negative Urine Occult Blood 250 H Urine Nitrite Negative Urine Bilirubin Negative Urine Urobilinogen 1 H Ur Leukocyte Esterase Negative Urine RBC 10-25 SEEN Urine WBC 0 SEEN Ur Squamous Epith Cells 0-5 SEEN Amorphous Sediment 1+ URATE Urine Bacteria 0 SEEN Urine Mucus 0 SEEN POC Glucose 04/20/18 04/19/18 04/19/18 06:01 21:43 16:42 POC Glucose 165 H 162 H 135 H 04/19/18 10:42 POC Glucose 144 H Discharge Activity: May Not Drive Weight Bearing Status: Weight bearing as tolerated Call your doctor if you observe: Fever of 101 or Higher, Inability to urinate, Inability to have a bowel movement, Shortness of breath, Dizziness, Fainting spells, Swelling in the ankles, Chest pain Home Medications: Medications to take at Discharge cilostazol 100 mg tablet 100 mg PO BID 04/05/18 clopidogrel 75 mg tablet 75 mg PO DAILY 04/05/18 lisinopril 20 mg tablet 20 mg PO BID tab 04/05/18 lovastatin 40 mg tablet 40 mg PO DAILY 04/05/18 metformin 1,000 mg tablet 1,000 mg PO BID 04/05/18 Aspirin E.C. [Ecotrin] 81 mg PO DAILY@0800 04/10/18 Cholecalciferol (Vitamin D3) [Vitamin D3] 2,000 unit PO DAILY 04/10/18 Cinnamon Bark [Cinnamon] 1,000 mg PO BID 04/10/18 Metoprolol Succinate [Toprol Xl] 50 mg PO BID 04/10/18 [place]-3 Fatty Acids/Fish Oil [Fish Oil 1,000 mg Capsule] 1 each PO BID 04/10/18 Clopidogrel Bisulfate [Plavix] 75 mg PO DAILY 04/19/18 Primary Care Physician: Livan Mcfarland MD [Primary Care Provider] - Please follow up with your Primary Care Physician in: in 1-2 weeks Please Follow Up With: Brian Brown MD When: in 1-2 weeks to reschedule surgery Please Follow Up With: Joe Phillip MD When: call office to schedule Medical Necessity - Tobacco Use Smoking Status: Former smoker Tobacco Use: Non-smoker Meaningful Use Info Meaningful Use Diagnoses (Choose all that apply): None applicable Code Visit Inpatient E&M: 07895 Disch Hosp
--- NOTE | 2018-04-20 11:08 | PCM.HP.ID ---
Problem List (1) Leukocytosis Status: Acute Reason for Consult: leukocytosis Consulted by: Dr. Joseph History of Present Illness: The patient is a 82 year old M with h/o CAD, bladder cancer who presented for elective R inguinal hernia repair. Found to have high wbc, surgery postponed, cxs sent, had cystoscopy done, started on ceftriaxone. Has felt fine. No new symptoms, no sick contacts, no new meds, no recent abx. Moved from [place], [place] in December. Does not recall ever being told he had abnormal wbc or h/o CLL. Has stable urinary frequency, no fever, no dysuria, no abd pain, no cough or SOB. No rash. Full ROS performed and neg except as noted above. 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) Coronary artery disease (Chronic) Dyslipidemia (Chronic) History of pulmonary embolism (Chronic) Peripheral arterial disease (Chronic) Obstructive sleep apnea (Chronic) Hypertension (Chronic) History of bladder cancer (Chronic) Allergies/Adverse Reactions: Allergies No Known Allergies Allergy (Verified 04/19/18 10:26) Home Medications: Ambulatory Orders Medication Instructions Recorded cilostazol 100 mg tablet 100 mg PO BID 04/05/18 clopidogrel 75 mg tablet 75 mg PO DAILY 04/05/18 lisinopril 20 mg tablet 20 mg PO BID tab 04/05/18 lovastatin 40 mg tablet 40 mg PO DAILY 04/05/18 metformin 1,000 mg tablet 1,000 mg PO BID 04/05/18 Aspirin E.C. [Ecotrin] 81 mg PO DAILY@0800 04/10/18 Cholecalciferol (Vitamin D3) 2,000 unit PO DAILY 04/10/18 [Vitamin D3] Cinnamon Bark [Cinnamon] 1,000 mg PO BID 04/10/18 Metoprolol Succinate [Toprol Xl] 50 mg PO BID 04/10/18 [facility]-3 Fatty Acids/Fish Oil [Fish 1 each PO BID 04/10/18 Oil 1,000 mg Capsule] Clopidogrel Bisulfate [Plavix] 75 mg PO DAILY 04/19/18 - Social History SMOKING STATUS:: Former smoker Vital Signs Temp Pulse Resp BP Pulse Ox 96.7 F L 95 18 145/90 H 96 04/20/18 10:46 04/20/18 10:47 04/20/18 10:46 04/20/18 10:47 04/20/18 10:46 Oxygen Delivery Method Room Air Weight: 106 kg Body Mass Index (BMI) 29.2 Laboratory Tests Past 24 Hrs 04/19/18 04/19/18 04/20/18 15:00 20:35 05:29 WBC 15.7 H RBC 4.31 L Hgb 13.3 Hct 41.5 MCV 96.3 H MCH 30.9 MCHC 32.0 RDW 14.1 RDW Differential 49.7 H Plt Count 164 MPV 10.9 Immature Gran % (Auto) 0.100 Neut % (Auto) 20.6 L Lymph % (Auto) 72.8 H Collier % (Auto) 4.5 Eos % (Auto) 1.7 Baso % (Auto) 0.3 Absolute Neuts (auto) 3.2 Absolute Lymphs (auto) 11.40 H Total Counted Not Reportable Differential Comment SCANNED Reactive Lymphocytes 3+ Sodium 142 Potassium 4.6 Chloride 108 H Carbon Dioxide 30.0 Anion Gap 4 L BUN 15 Creatinine 1.00 Estim Creat Clear Calc 70.42 Est GFR (MDRD) Af Amer 92 Est GFR (MDRD) Non-Af 76 BUN/Creatinine Ratio 15.0 Glucose 135 H Calcium 9.1 C-React Prot Ext Range 5.87 H Urine Color Yellow Urine Clarity Sl Cldy Urine pH 6.[address] 1.010 Urine Protein 15 H Urine Glucose (UA) 100 H Urine Ketones Negative Urine Occult Blood 250 H Urine Nitrite Negative Urine Bilirubin Negative Urine Urobilinogen 1 H Ur Leukocyte Esterase Negative Urine RBC 10-25 SEEN Urine WBC 0 SEEN Ur Squamous Epith Cells 0-5 SEEN Amorphous Sediment 1+ URATE Urine Bacteria 0 SEEN Urine Mucus 0 SEEN - Other Studies Radiology: [] reviewed Other Studies: [] Route of nutrition/ use of supplements: [] Nutritional Intake: [] IV Site: [] Ochoa Catheter: [] - Physical Exam General: Alert, Oriented x3, Cooperative, No apparent distress HEENT: Atraumatic, PERRLA, EOMI Neck: Supple, No Nodes Lungs: Clear to auscultation, Normal air movement Cardiovascular: Regular rate, Regular Rhythm, No murmurs Abdomen: Bowel Sounds Present, Soft, Non Tender, Non-Distended Extremities: No edema Skin: No rashes IV Site: Peripheral, without redness Musculoskeletal: No Tenderness to Palpation of Joints or Extremities Neurological: Cranial nerves II-XII grossly intact - Assessment/Plan Antibiotics: [] Assessment/Plan: [] Active and Suspected Problems (Last Updated 04/05/18 @ 10:13 by Priya Swan) Leukocytosis (Acute) Lower urinary tract symptoms (Acute) Lymphocytosis with no physical symptoms. Denies any past h/o CLL, no recent infections, no recent med changes. UA with no wbc seen. Bcx and ucx pending. No evidence of infection. Wbc slightly improved this AM. Ok for d/c home off of abx. Recommend PCP follow-up with repeat CBC and obtaining past cbc results from PCP in [employer] and from [facility]. D/w Dr. Joseph, thank you for this consultation.
--- NOTE | 2018-04-20 11:30 | CASEMGMT ---
RN CM ADMISSION CHART REVIEW NOTE: Pt scheduled for robotic assisted lap right inguinal hernia repair with mesh by Dr Brown and this was cancelled d/t leukocytosis. Admitted to [facility]. Cystocopy completed by Dr Phillip. Pt denied having Living will or HPOA and declined wanting any further information. Pharmacy is [facility] in [place]. Pt is alert/oriented x 3 and lives at home with his , independent with ambulation, and no discharge needs identified per nursing staff. Lizzy CHENGN RN CM
== END 2018-04-20 11:31 | disposition home or self-care (01) | DRG 816 ==
LOC: SDC 14:08
PROVIDERS: Surgery; Admitting Provider Internal Medicine; Family Provider Family Medicine; PCP Family Medicine; Referring Provider Internal Medicine; Visit Provider Internal Medicine
DX: D72.829 Elevated white blood cell count, unspecified (principal); R35.0 Frequency of micturition; R39.15 Urgency of urination; K40.90 Unilateral inguinal hernia, without obstruction or gangrene, not specified as recurrent; Z86.711 Personal history of pulmonary embolism; I73.9 Peripheral vascular disease, unspecified; E78.5 Hyperlipidemia, unspecified; I10 Essential (primary) hypertension; E11.9 Type 2 diabetes mellitus without complications; G47.33 Obstructive sleep apnea (adult) (pediatric); I25.10 Atherosclerotic heart disease of native coronary artery without angina pectoris; Z95.1 Presence of aortocoronary bypass graft; E66.9 Obesity, unspecified; Z68.29 Body mass index [BMI] 29.0-29.9, adult; Z87.891 Personal history of nicotine dependence; Z79.84 Long term (current) use of oral hypoglycemic drugs; C67.9 Malignant neoplasm of bladder, unspecified
CPT/HCPCS: 36415; 71046; 76770; 80048; 81001; 82962; 85025; 85027; 86140; 87040; 87086; 93970; J7030; J7120

== ENCOUNTER → 2018-04-26 09:50 | Outpatient (CLI) | payer MEDICARE, OTHER, SELFPAY ==
[2018-04-26 12:17] LABS: CRP < 2.90 mg/L (0.0-3.0)
[2018-04-26 12:24] LABS: Absolute Lymphocyte Count 8.31 X10^3/ul (0.83-4.51); Absolute Neutrophil Count 3.9 X10^3/uL (2.0-7.7); Basophil# 0.05 X10^3/uL; Basophil% 0.4 % (0-1); Eosinophil# 0.24 X10^3/uL; Eosinophils% 1.8 % (0-5); Hematocrit 43.2 % (40-54); Hemoglobin 13.8 g/dl (13.0-16.5); Lymphocyte # 8.31 X10^3/ul (4.0); Lymphocyte % 61.7 % (19-41); Mean Corp Hgb Conc 31.9 g/gl (32-36); Mean Corpuscular Hgb 31.8 pg (27.0-32.0); Mean Corpuscular Volume 99.5 fL (80-94); Mean Platelet Vol. 10.9 fl (6.2-12.0); Monocyte# 0.98 X10^3/uL; Monocyte% 7.3 % (0-10); Neutrophil # 3.87 X10^3/uL (2.7-7.7); Neutrophil % 28.7 % (47-70); Platelet Count 173 K/mm3 (150-450); RBC Distribution Width CV 14.6 % (11.6-14.6); RBC Distribution Width SD 51.7 fl (35.1-43.9); Red Blood Count 4.34 M/mm3 (4.6-6.2); White Blood Count 13.5 K/mm3 (4.4-11.0)
[2018-04-26 12:27] LABS: Differential Indicated SCAN CRITERIA MET; POSITIVE COUNT NO; POSITIVE DIFFERENTIAL YES; POSITIVE MORPHOLOGY YES
[2018-04-27 13:27] LABS: Pathologist Review Reviewed
== END ==
PROVIDERS: Family Provider Family Medicine; PCP Family Medicine; Visit Provider Family Medicine
DX: D72.829 Elevated white blood cell count, unspecified (principal)
CPT/HCPCS: 36415; 85025; 86140

== ENCOUNTER 2018-05-12 09:33 | Day surgery (SDC) | payer MEDICARE, OTHER, SELFPAY ==
--- NOTE | 2018-05-12 | BLB_PTH ---
PATIENT: RANULFO NEGRETE LOC: [facility] [place] U#:[id number] AGE/SX: 83/M ROOM: RE05/12/[address]: Dr. Joe Phillip MD : 1935 BED: DIS: 05/12/2018 SPEC #: [id number] RECD: 05/12/18 12:56 STATUS: EMY RETommy #: [id number] LEN: 05/12/18 00:[address]: Joe Phillip DEPT: SURGICAL PATHOLOGY RECD BY: Gerald Hooker ENTERED: 05/12/18 12:57 SP TYPE: TURB OTHR DR: Dr. Livan Mcfarland MD Tissues: Urinary bladder, NOS Procedures: Surgery Specimen Level V HEADER OPERATION: Cysto, transurethral resection bladder, [employer] PRE-OP DIAGNOSIS: History bladder tumor TISSUE SUBMITTED: Bladder tumor MICROSCOPIC DIAGNOSIS Urine bladder tumor, transurethral resection: Urothelial carcinoma. See Comment. 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 Lymph-Vascular invasion - not identified Microscopic extent of tumor - tumor invades subepithelial connective tissue (lamina propria). Additional pathologic findings - focal chronic cystitis with vascular ectasia. The above summary is in compliance with [employer] (CAP) Cancer Protocols Checklist and [place] Joint Committee on Cancer (AJCC), Staging Manual, 8th Ed. Case has been reviewed in consultation with Dr. Valdez who concurs with the above diagnosis. IDC:[email or web address] MICROSCOPIC DESCRIPTION Slides are reviewed. GROSS DESCRIPTION Received is one container labeled with the patient name and designated bladder tumor. The specimen consists of three irregular fragments of light bean soft tissue that in aggregate measure 0.4 x 0.3 x 0.1 cm. The specimen is totally submitted in one cassette. / SJ:trina 05/12/18 TC: 0 CPT: 94976
--- NOTE | 2018-05-12 | IMM_PTH ---
PATIENT: RANULFO NEGRETE LOC: [facility] [place] U#:[id number] AGE/SX: 83/M ROOM: RE05/12/[address]: Dr. Joe Phillip MD : 1935 BED: DIS: 05/12/2018 SPEC #: [id number] RECD: 05/15/18 12:06 STATUS: EMY REQ #: [id number] LEN: 05/12/18 00:[address]: Joe Phillip DEPT: IMMUNOHISTOCHEMISTRY RECD BY: Linsey Casiano ENTERED: 05/15/18 12:07 SP TYPE: IMMUNO OTHR DR: Dr. Livan Mcfarland MD Tissues: Urinary bladder, NOS Procedures: P53 (initial) CK19 (add) CK20 (add) CK7 (add) CD44 (add) PHYSICIAN & INSTITUTION [place] [address] SPECIMEN INFORMATION: Tissue Source: Bladder tumor Clinical Info: History bladder tumor Specimen Number: [id number] CPT code: 43970, 37076 x3 METHODOLOGY: Deparaffinized sections of prefer/formalin-fixed tissue or PAP/DQ stained slides are incubated with monoclonal/polyclonal antibodies/oligonucleotide probes. Localization is made via biotin free immunoperoxidase method. Appropriate controls are performed and reacted as expected. Results on target cell population are indicated in the following table: RESULTS: ANTIBODY / CLONE RESULT anti-CD44 (SP37) positive P53 (DO-7) positive CK7 (OV-TL12/30) positive CK20 (KS20.8) positive These tests were developed and their performance characteristics determined by [facility]. They may not have been cleared or approved by the U.S. Food and Drug Administration. The FDA has determined that such clearance or approval is not necessary. 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 This case was reviewed with Dr. Valdez who concurs with the above diagnosis. AM:homer 05/16/18
[2018-05-12 10:20] VITALS: BP 142/69; PULSE 53; RESP 16; TEMP 37.3; O2SAT 99; BMI 29.2
[2018-05-12 11:25] LABS: Bedside Glucose 159 mg/dL (70-110)
[2018-05-12] MEDS: Cefazolin 2 GM in 0.9% Normal Saline 100 ML IV (11:42)
--- NOTE | 2018-05-12 11:50 | DCINST_ITS ---
Discharge Diet: Light diet - advance as tolerated Discharge Activity: May Drive, May Shower Call your doctor if your incision/area has: Continuous Slow Oozing, Sudden Increased Bleeding, Increased Pain/ Swelling, Increased Redness, Foul Smelling Discharge, Swelling at the incision site Instructions: Treating Bladder Cancer: TUR (Transurethral Resection) Allergies/Adverse Reactions: Allergies No Known Allergies Allergy (Verified 05/08/18 13:17) Medications to take at Discharge cilostazol 100 mg tablet 100 mg PO BID 04/05/18 lisinopril 20 mg tablet 20 mg PO BID tab 04/05/18 lovastatin 40 mg tablet 40 mg PO DAILY 04/05/18 metformin 1,000 mg tablet 1,000 mg PO BID 04/05/18 Aspirin E.C. [Ecotrin] 81 mg PO DAILY@0800 04/10/18 Cholecalciferol (Vitamin D3) [Vitamin D3] 2,000 unit PO DAILY 04/10/18 Cinnamon Bark [Cinnamon] 1,000 mg PO BID 04/10/18 Metoprolol Succinate [Toprol Xl] 50 mg PO BID 04/10/18 [place]-3 Fatty Acids/Fish Oil [Fish Oil 1,000 mg Capsule] 1 each PO BID 04/10/18 Clopidogrel Bisulfate [Plavix] 75 mg PO DAILY 04/19/18 Ciprofloxacin [Cipro] 500 mg PO BID #6 tablet 05/12/18 Ibuprofen 600 mg PO 4X/DAY #10 tablet 05/12/18 The following prescriptions were given: Ciprofloxacin [Cipro] 500 mg PO BID #6 tablet Ibuprofen 600 mg PO 4X/DAY #10 tablet Primary Care Physician: Livan Mcfarland MD [Primary Care Provider] - Test Results: Test results from this visit will be discussed in further detail at your follow- up appointment, if applicable. Please Follow Up With: Joe Phillip MD When: in 2 weeks, please call to make an appointment.
--- NOTE | 2018-05-12 12:21 | PCM.OPRPT ---
Report of Operation Date of Procedure: 05/12/18 Pre-Operative Diagnosis: Bladder tumors multiple Post-Operative Diagnosis: Same Surgery/Procedure Performed:: Transurethral resection of multiple tumors within the bladder it was in the left lateral wall right lateral wall posterior wall dome anterior, instillation of mitomycin-C Description of Surgical Findings:: 83-year-old male taken back to the operating room after smooth induction of anesthesia he was placed in dorsolithotomy position the penis and testicles are prepped and draped in usual sterile fashion went in the bladder with a 24 Brazilian noncontinuous flow resectoscope got inside the bladder and identified a tumor in the posterior aspect of the wall right lateral wall left wall wall and then it tumors up in the dome of the bladder multiple tumors throughout the bladder these were carpet-like tumors but carpeting the entire layer of the bladder and the location described so I first resected the left lateral wall tumors I get the tissues here the rest of the tumors I cauterized extensively is quite a large extensive amount of cauterization involving the dome of the bladder the posterior aspect of the wall bladder the left and right wall the bladder after cauterize these extensively then I placed a drain the bladder there is no bleeding put a catheter in the bladder instilled 40 cc of mitomycin-C and then took the catheter out patient anesthetic was reversed taken back to PACU good condition plan is to follow-up in the office to review the biopsies and will continue with cystoscopy with surveillance. Type of Anesthesia:: General Drains: none - Admit VTE Documentation VTE Present on Admission: No VTE Mechan Device Prophylaxis: SCD's
[2018-05-12 12:30] VITALS: BP 142/69; BP 185/92; PULSE 81; RESP 16; TEMP 36.4; O2SAT 91
[2018-05-12 12:45] VITALS: BP 142/69; BP 151/80; PULSE 66; RESP 16; O2SAT 94
[2018-05-12 12:54] VITALS: BP 142/69; BP 151/80; PULSE 65; RESP 16; TEMP 36.2; O2SAT 94
[2018-05-12 13:36] VITALS: BP 142/69; BP 145/82; PULSE 67; RESP 16; TEMP 36.3; O2SAT 94
== END 2018-05-12 13:42 | disposition home or self-care (01) ==
LOC: SDC 09:34 → AC 09:57 → MS3 11:14 → AC 11:28
PROVIDERS: Family Provider Family Medicine; PCP Family Medicine; Referring Provider Urology; Visit Provider Urology
PROC: 0TBB8ZZ Excision of Bladder, Via Natural or Artificial Opening Endoscopic (ICD-10-PCS; CPT 51720; principal; 2018-05-12 11:45)
DX: C67.7 Malignant neoplasm of urachus (principal); K40.30 Unilateral inguinal hernia, with obstruction, without gangrene, not specified as recurrent; N30.20 Other chronic cystitis without hematuria; E11.9 Type 2 diabetes mellitus without complications; Z95.1 Presence of aortocoronary bypass graft; Z79.82 Long term (current) use of aspirin; Z87.891 Personal history of nicotine dependence; E78.00 Pure hypercholesterolemia, unspecified; Z86.718 Personal history of other venous thrombosis and embolism
CPT/HCPCS: 51720; 52240; 82962; 88307; 88341; 88342; J7120; J2405; J3490; J9280

== ENCOUNTER → 2018-06-01 17:03 | Outpatient (CLI) | payer MEDICARE, OTHER, SELFPAY ==
[2018-05-12 10:20] VITALS: BMI 29.2
--- OUTSIDE RECORDS SUMMARY | 2018-07-27 23:07 | XMS RPT_ITS ---
:1935 Author Organization OHIP Support Name Relationship Address Phone SVEN NEGRETE Unavailable [id number] + [place] [address] R Unavailable Unavailable Unavailable ANSHUTZ, DELTHA Unavailable [address] + [place] [address] R Unavailable Unavailable Unavailable ANSHUTZ, DELTHA Unavailable [address] + [place] [address] R Unavailable Unavailable Unavailable ANSHUTZ, DELTHA Unavailable [address] + [place] [address] R Unavailable Unavailable Unavailable ANSHUTZ, DELTHA Unavailable [address] + [place] [address] R Unavailable Unavailable Unavailable ANSHUTZ, DELTHA Unavailable [address] + [place] [address] R Unavailable Unavailable Unavailable ANSHUTZ, DELTHA Unavailable [address] + [place] [address] R Unavailable Unavailable Unavailable ANSHUTZ, DELTHA Unavailable [address] + [place] [address] R Unavailable Unavailable Unavailable ANSHUTZ, DELTHA Unavailable [address] + [place] [address] R Unavailable Unavailable Unavailable ANSHUTZ, DELTHA Unavailable [address] + [place] [address] R Unavailable Unavailable Unavailable ANSHUTZ, DELTHA Unavailable [address] + [place] [address] R Unavailable Unavailable Unavailable R Unavailable Unavailable Unavailable R Unavailable Unavailable Unavailable Care Team Providers Name Role Phone Livan Mcfarland Attending Unavailable Brian Brown Attending Unavailable Mcfarland, Livan Referring Unavailable Brian Brown Attending Unavailable CecilabrShawn escobedoony Referring Unavailable Mcfarland, Livan Primary Care Unavailable BellLorna lombardol Attending Unavailable Shawn Brownony Referring Unavailable Mcfarland, Livan Primary Care Unavailable Cceilabretta, Brian Consulting Unavailable Mcfarland, Livan Primary Care Unavailable Jake, Gómez Admitting Unavailable Kenji, Tremayne Consulting Unavailable Jake, Gómez Attending Unavailable Jake, Gómez Referring Unavailable Joseph, Chao Consulting Unavailable Jaek, Gómez Admitting Unavailable Jake, Gómez Attending Unavailable Jake, Gómez Referring Unavailable Mcfarland, Livan Primary Care Unavailable Kenji, Tremayne Consulting Unavailable Jake, Gómez Consulting Unavailable Jake, Gómez Admitting Unavailable Jake, Gómez Attending Unavailable Jake, Gómez Referring Unavailable Mcfarland, Livan Primary Care Unavailable Kenji, Tremayne Consulting Unavailable Joseph, Chao Consulting Unavailable Jake, Gómez Consulting Unavailable Ranulfo Merino Attending Unavailable Mcfarland, Livan Primary Care Unavailable Kenji, Joe Ellis Attending Unavailable Kenji, Tremayne Referring Unavailable Mcfarland, Livan Primary Care Unavailable Bell, [place] Attending Unavailable Shawn Brownony Referring Unavailable Cebul, Chao Attending Unavailable Jake, Gómez Referring Unavailable Kenji, Joe Ellis Attending Unavailable Kenji, Tremayne Referring Unavailable Mcfarland, Livan Primary Care Unavailable Mcfarland, Livan Attending Unavailable Mcfarland, Livan Primary Care Unavailable PROBLEMS PROBLEMS DATE TYPE CONDITION / CODE ATTENDING STATUS SOURCE 06/02/2018 Unknown E11.9 - Type 2 Livan Mcfarland Active [facility] mellitus [facility] without complications Hospital / E11.9(ICD-10) Repository 05/11/2018 Unknown M79.89 - Other Cebul, Chao Active [facility] specified soft tissue Community disorders / Hospital M79.89(ICD-10) Repository 04/10/2018 Unknown Z01.818 - Encounter Bell, [place] Active [facility] for other Community preprocedural Hospital examination / Repository Z01.818(ICD-10) 05/04/2018 Unknown 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, Abhilash Active [facility] aortocoronary bypass Community graft / Z95.1(ICD-10) Hospital Repository 05/04/2018 Unknown R94.31 - Abnormal Bell, Abhilash Active [facility] electrocardiogram Community [ECG] [EKG] / Hospital R94.31(ICD-10) Repository 05/04/2018 Unknown I10 - Essential Bell, Abhilash Active [facility] (primary) hypertension Community / I10(ICD-10) Hospital Repository 05/04/2018 Unknown I25.10 - Bell, Abhilash Active [facility] Atherosclerotic heart Community disease of [facility] coronary artery Repository without angina pectoris / I25.10(ICD-10) PROCEDURES PROCEDURES No Procedure Records FoundRESULTS RESULTS BASIC METABOLIC Collected: 06/02/2018 Status: F Source: [place] PROFILE (BMP) 2:52 PM [facility] REPOSITORY TYPE CODE TESTS RESULT OUT OF RANGE REFERENCE UNITS LAB L501.0100 74-106 mg/dL High GLU 185 Result Comment: Fasting Glucose result greater than or equal to 126 mg/dL suggests DIABETES MELLITUS per A.D.A. criteria. Please note revised GLUCOSE reference range effective 2017. LAB L501.1000 7-18 mg/dL High BUN 23 LAB L501.1100 0.70-1.30 mg/dL High CREAT,SERUM 1.40 Result Comment: The validity of the calculated GFR AND GFRAA in patients over 70 years has not been determined. Clinical correlation is essential. LAB L501.1110 >60 mL/min Low EST GFR 52 Result Comment: Non- GFR Calc LAB L501.1115 >60 mL/min Normal EST GFR - AA 63 Result Comment: GFR Calc LAB L501.1300 10-20 RATIO Normal BUN/CRE 16.4 LAB L501.2200 8.5-10.1 mg/dL CA Normal 9.5 LAB L501.5300 136-145 mmol/L NA Normal 142 LAB L501.5600 3.5-5.1 mmol/L K Normal 4.6 LAB L501.5900 98-107 mmol/L CL Normal 107 LAB L501.6100 21.0-32.0 mmol/L Normal CO2 28.0 LAB L501.6200 5-15 Normal GAP 7 Performed By: #### L500.2500 #### [facility] [address] [place], [address] HEMOGLOBIN A1C Collected: 06/02/2018 Status: F Source: [place] 2:52 PM [facility] REPOSITORY TYPE CODE TESTS RESULT OUT OF RANGE REFERENCE UNITS LAB L501.9985 4.2-6.3 % High HGB A1C 8.2 Performed By: #### L501.9985 #### [facility] [address] [place], [address] Observed: 06/01/2018 Status: F Source: [place] CULTURE, URINE 11:45 AM [facility] REPOSITORY Urine Culture Culture exhibits no growth. Performed By: #### M100.0650 #### [facility] [address] [place], [address] OPERATIVE REPORT Observed: 05/12/2018 Status: F Source: [place] 12:24 PM [facility] REPOSITORY [facility] Medical Records Department [address] [address] Operative Report 05/12/18 1221 MR#: [id number] Acct: [id number] Name: RANULFO NEGRETE Rep #: [id number] : 1935 83 From: Joe Phillip MD PCP: Livan Mcfarland MD Status: [facility] Location: [place] [address] Report of Operation Date of Procedure: 05/12/18 Pre-Operative Diagnosis: Bladder tumors multiple Post-Operative Diagnosis: Same Surgery/Procedure Performed:: Transurethral resection of multiple tumors within the bladder it was in the left lateral wall right lateral wall posterior wall dome anterior, instillation of mitomycin-C Description of Surgical Findings:: 83-year-old male taken back to the operating room after smooth induction of anesthesia he was placed in dorsolithotomy position the penis and testicles are prepped and draped in usual sterile fashion went in the bladder with a 24 Syriac noncontinuous flow resectoscope got inside the bladder and identified a tumor in the posterior aspect of the wall right lateral wall left wall wall and then it tumors up in the dome of the bladder multiple tumors throughout the bladder these were carpet-like tumors but carpeting the entire layer of the bladder and the location described so I first resected the left lateral wall tumors I get the tissues here the rest of the tumors I cauterized extensively is quite a large extensive amount of cauterization involving the dome of the bladder the posterior aspect of the wall bladder the left and right wall the bladder after cauterize these extensively then I placed a drain the bladder there is no bleeding put a catheter in the bladder instilled 40 cc of mitomycin-C and then took the catheter out patient anesthetic was reversed taken back to PACU good condition plan is to follow-up in the office to review the biopsies and will continue with cystoscopy with surveillance. Type of Anesthesia:: General Drains: none - Admit VTE Documentation VTE Present on Admission: No VTE Mechan Device Prophylaxis: SCD's 05/12/18 1224 <Electronically signed by Joe Phillip MD> Date Joe Phillip MD CC: Joe Phillip MD; Livan Mcfarland MD Signed DISCHARGE INSTRUCTION Observed: 05/12/2018 Status: F Source: [place] 11:50 AM [facility] Medical Records Department [address] [place] [address] Instructions for Home/Discharge Instructions 05/12/18 1148 MR#: [id number] Acct: [id number] Name: RANULFO NEGRETE Rep #: [id number] : 1935 83 From: Joe Phillip MD PCP: Livan Mcfarland MD Status: [facility] Discharge Diet: Light diet - advance as tolerated Discharge Activity: May Drive, May Shower Call your doctor if your incision/area has: Continuous Slow Oozing, Sudden Increased Bleeding, Increased Pain/ Swelling, Increased Redness, Foul Smelling Discharge, Swelling at the incision site Instructions: Treating Bladder Cancer: TUR (Transurethral Resection) Allergies/Adverse Reactions: Allergies No Known Allergies Allergy (Verified 05/08/18 13:17) Medications to take at Discharge cilostazol 100 mg tablet 100 mg PO BID 04/05/18 lisinopril 20 mg tablet 20 mg PO BID tab 04/05/18 lovastatin 40 mg tablet 40 mg PO DAILY 04/05/18 metformin 1,000 mg tablet 1,000 mg PO BID 04/05/18 Aspirin E.C. [Ecotrin] 81 mg PO DAILY@0800 04/10/18 Cholecalciferol (Vitamin D3) [Vitamin D3] 2,000 unit PO DAILY 04/10/18 Cinnamon Bark [Cinnamon] 1,000 mg PO BID 04/10/18 Metoprolol Succinate [Toprol Xl] 50 mg PO BID 04/10/18 Grand Saline-3 Fatty Acids/Fish Oil [Fish Oil 1,000 mg Capsule] 1 each PO BID 04/10/18 Clopidogrel Bisulfate [Plavix] 75 mg PO DAILY 04/19/18 Ciprofloxacin [Cipro] 500 mg PO BID #6 tablet 05/12/18 Ibuprofen 600 mg PO 4X/DAY #10 tablet 05/12/18 The following prescriptions were given: Ciprofloxacin [Cipro] 500 mg PO BID #6 tablet Ibuprofen 600 mg PO 4X/DAY #10 tablet Primary Care Physician: Livan Mcfarland MD [Primary Care Provider] - Test Results: Test results from this visit will be discussed in further detail at your follow-up appointment, if applicable. Please Follow Up With: Joe Phillip MD When: in 2 weeks, please call to make an appointment. 05/12/18 1150 <Electronically signed by Joe Phillip MD> Date Joe Phillip MD CC: Livan Mcfarland MD BEDSIDE GLUCOSE Collected: 05/12/2018 Status: F Source: [place] 10:39 AM [facility] REPOSITORY TYPE CODE TESTS RESULT OUT OF REFERENCE UNITS RANGE LAB L501.080 70-110 mg/dL High BEDSIDE GLU 159 Result Comment: MANAGEMENT OF PATIENT CARE PER NURSING PROTOCOL Performed By: #### L501.080 #### [facility] Point of Care [address] 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 Lymph-Vascular invasion - not identified Microscopic extent of tumor - tumor invades subepithelial connective tissue ( lamina propria). Additional pathologic findings - focal chronic cystitis with vascular ectasia. The above summary is in compliance with [employer] (CAP) Cancer Protocols Checklist and [place] Joint Committee on Cancer (AJCC), Staging Manual, 8th Ed. Case has been reviewed in consultation with Dr. Valdez who concurs with the above diagnosis. IDC:JOANNE GROSS DESCRIPTION Received is one container labeled with the patient name and designated bladder tumor. The specimen consists of three irregular fragments of light bean soft tissue that in aggregate measure 0.4 x 0.3 x 0.1 cm. The specimen is totally submitted in one cassette. / JOANNE:trina 05/12/18 TC: 0 CPT: 12753 HEADER OPERATION: Cysto, transurethral resection bladder, [employer] PRE-OP DIAGNOSIS: History bladder tumor TISSUE SUBMITTED: Bladder tumor MICROSCOPIC DESCRIPTION Slides are reviewed. MICROSCOPIC DIAGNOSIS Urine bladder tumor, transurethral resection: Urothelial carcinoma. See Comment. AM:trina 05/15/18 Signed Jose Eliz 05/18/18 <signature on file> Performed By: #### PBLB #### [facility] [address] [place] [address]. [place], [address] IMMUNOHISTOCHEMISTRY Observed: 05/12/2018 Status: F Source: [place] 12:00 AM [facility] REPOSITORY Patient: RANULFO NEGRETE : 1935 (83/M) Acct Num: [id number] Phys: Kenji MARES,Joe Ellis Unit Num: [id number] Loc: [facility] Specimen: [id number] Received: 05/15/18 - 1206 Spec Type: IMMUNO TISSUES 1 TISSUES: Urinary bladder, NOS SPECIMEN INFORMATION: Tissue Source: Bladder tumor Clinical Info: History bladder tumor Specimen Number: [id number] CPT code: 04762, 78124 x3 METHODOLOGY: Deparaffinized sections of prefer/formalin-fixed tissue or PAP/DQ stained slides are incubated with monoclonal/polyclonal antibodies/oligonucleotide probes. Localization is made via biotin free immunoperoxidase method. Appropriate controls are performed and reacted as expected. Results on target cell population are indicated in the following table: RESULTS: ANTIBODY / CLONE RESULT anti-CD44 (SP37) positive P53 (DO-7) positive CK7 (OV-TL12/30) positive CK20 (KS20.8) positive These tests were developed and their performance characteristics determined by [facility]. They may not have been cleared or approved by the U.S. Food and Drug Administration. The FDA has determined that such clearance or approval is not necessary. 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 This case was reviewed with Dr. Valdez who concurs with the above diagnosis. AM:homer 05/16/18 PHYSICIAN AND INSTITUTION [place] [address] Signed Jose [facility] 05/18/18 <signature on file> Performed By: #### PIMM #### [facility] [address] [place] [address]. [place], [place], [id number] CRP Collected: 04/26/2018 Status: F Source: [place] 9:52 AM [facility] REPOSITORY TYPE CODE TESTS RESULT OUT OF RANGE REFERENCE UNITS LAB L501.6710 0.0-3.0 mg/L Normal < 2.90 C-REACTIVE PROT Result Comment: C-Reactive Protein (CRP) provides useful information for the diagnosis, therapy and monitoring of inflammatory processes and associated diseases. For the evaluation of Relative Risk for Cardiovascular Disease, a High Sensitivity CRP (HSCRP) should be ordered. Performed By: #### L501.6710 #### [facility] [address] [place] [address], [id number] CBC W/DIFF, AUTOMATED Collected: 04/26/2018 Status: C Source: [place] 9:52 AM [facility] REPOSITORY TYPE CODE TESTS RESULT OUT OF RANGE REFERENCE UNITS LAB L100.1000 4.4-11.0 K/mm3 High WBC 13.5 LAB L100.1200 4.6-6.2 M/mm3 Low RBC 4.34 LAB L100.1300 13.0-16.5 g/dl Normal HGB 13.8 LAB L100.1400 40-54 % Normal HCT 43.2 LAB L100.1500 80-94 fL High MCV 99.5 LAB L100.1600 27.0-32.0 pg Normal MCH 31.8 LAB L100.1700 32-36 g/gl Low MCHC 31.9 LAB L100.1810 11.6-14.6 % Normal RDW CV 14.6 LAB L100.1820 35.1-43.9 fl High RDW SD 51.7 LAB L100.1900 150-450 K/mm3 Normal PLT 173 LAB L100.2000 6.2-12.0 fl Normal MPV 10.9 LAB L100.2100 47-70 % Low NEUT% 28.7 LAB L100.2200 19-41 % High LY% 61.7 LAB L100.2300 0-10 % Normal MONO% 7.3 LAB L100.2400 0-5 % Normal EO% 1.8 LAB L100.2500 0-1 % Normal BASO% 0.4 LAB L100.2550 0.0-0.9 % Normal IM GRAN % 0.100 Result Comment: IG% - Immature Granulocytes (promyelocytes, myelocytes and metamyelocytes) > 1% indicates that a LEFT SHIFT is Present. LAB L100.2620 2.0-7.7 X10 3/uL Normal Absolute Neut 3.9 LAB L100.2720 0.83-4.51 X10 3/ul High Absolute Lymph 8.31 LAB L100.4500 Normal SMEAR COMMENT COMMENT Result Comment: SLIDE SCANNED - 2+ ATYPICAL LYMPHS, LYMPHOCYTOSIS. LAB L100.9900 Normal Reviewed PATH REV Result Comment: Leukocytosis and absolute lymphocytosis. Macrocytosis. Clinical correlation necessary. Connor Valdez M.D. 04/27/18 AMENDED REPORT 04/27/18 1327 PATH REV previously reported as: November foll Performed By: #### L100.0100 #### [facility] [address] [place], [address] DISCHARGE SUMMARY Observed: 04/20/2018 Status: F Source: [place] 4:08 PM [facility] REPOSITORY [facility] Medical Records Department [address] [place] [address] Discharge Summary 04/20/18 1050 MR#: [id number] Acct: [id number] Name: RANULFO NEGRETE Rep #: [id number] : 1935 82 From: Gómez Joseph MD PCP: Livan Mcfarland MD Status: DIS IN Y Location: [place] [id number] 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) Coronary artery disease (Chronic) Dyslipidemia (Chronic) History of pulmonary embolism (Chronic) Peripheral arterial disease (Chronic) Obstructive sleep apnea (Chronic) Hypertension (Chronic) History of bladder cancer (Chronic) Hospital Course and Treatment Summary of Care Provided: The patient is a 82 year old M with multiple comorbidities including coronary artery disease status post CABG in 2007, left CEA, tumor, TURBT om 09/17 amd 11/17 history of bladder and a small 3 tumor resection in October 2017 in [place] was scheduled for robotic assisted laparoscopic right inguinal hernia repair with mesh by Dr. Brown but was canceled because of leukocytosis. WBC count was found 17.8 thousand. There is no differential. Patient on further history was noticed that he has a stable increased frequency and urgency for last 2-3 weeks without burning micturition. His chronic urinary incontinence and dribbling of urine. Recently moved to [facility]. He saw Dr. Phillip on April 03, 2018. Denies fever, chills, URI symptoms, shortness of breath, chest pressure or palpitation. Right lower leg is little red but no tenderness or induration. 1. Leukocytosis with recent onset lower urinary tract symptoms suspicion of possible UTI history of bladder cancer and multiple TURBT: The patient was admitted on regular [facility] floor. Venous Doppler of lower extremities was done and came out negative or DVT. Chest x-ray PA and lateral shows no acute pathology. UA was negative with WBC of 0, RBC 10-25 cells/2 mild microscopic hematuria, glucosuria, mild proteinuria 15. Blood cultures and urine cultures are pending. After urine sample was collected, 1 dose of IV ceftriaxone given empirically in view of history of complicated history of bladder cancer and possible UTI. After it was found, UA does not meet criteria for UTI, antibiotic discontinued. CRP elevated. No rash. Leukocytosis improved. Shows mainly lymphocyte predominance 72.8%, neutrophil 20.6. ID was consulted. It was concluded that patient does not have evidence of active infectious process; therefore no need for antibiotic. Patient need review of previous medical record of CBC to look for leukocytosis or evidence of CLL. If WBC continues to be high it needs hematology consult as an outpatient. For now patient is being discharged home without antibiotics and advised to follow-up with PCP, Dr. Livan Olsen to review previous medical record and do needful. 2. Bladder cancer status post cystoscopy with evidence of recurrent low-grade small papillary tumors: patient had cystoscopy by Dr. Phillip and was found prostate mild enlargement with no significant obstruction. There were some small papillary tumors on the posterior aspect of bladder and right lateral wall that appeared to be recurrent with low grade recurrence CIS as per operative note. Follow with Dr. Phillip. cardiovascular disease: Coronary artery disease status post CABG in 2007, left carotid endarterectomy, peripheral arterial disease of the right lower extremity status post femoropopliteal and total occlusion of [place] and graft: Continue aspirin, Plavix and cilostazol. Venous Doppler of lower extremity ordered Right inguinal reducible hernia: laparoscopic right inguinal hernia surgery was postponed. Dr. Chao Brown was called and hospital update was exchanged. No infectious process was found and it was communicated to him. His office will schedule the patient for right inguinal laparoscopic hernia repair. 3. Diabetes mellitus type 2: Last A1c 7.3 in March 2018. Accu-Chek before meals and at bedtime and cover with NovoLog sliding scale. Hold metformin. 4. Other chronic comorbidities include hypertension, dyslipidemia, obesity grade 3: Home medication reconciliation done. Discharge medication reconciliation done. Follow-up instructions given. Discharge medication and follow-up instructions discussed with the patient along with his . Total time spent, exact 35 minutes, on discharge meds reconciliation, examination, more than half time spent on review of imaging and blood test and discussion with the patient and his on the discharge follow-up instructions. - Physical Exam General: Alert, Oriented x3, Cooperative HEENT: Atraumatic, PERRLA, EOMI, Normocephalic Neck: Supple, No JVD, Negative Carotid Bruits Lungs: Clear to auscultation, Normal air movement, No rhonchi, No wheeze, No rales Cardiovascular: Regular rate, Normal S1, Normal S2, No murmurs Abdomen: Bowel Sounds Present, Soft, Non Tender, Non-Distended Extremities: Capillary Refill Less than 3 Seconds, Edema - right leg slightly more edematous than left leg probably secondary to chronic [place] SFA and femoropopliteal graft 100% occlusion with collateral circulation Skin: No rashes, No breakdown Musculoskeletal: No Tenderness to Palpation of Joints or Extremities Neurological: Cranial nerves II-XII grossly intact Psych/Mental Status: Normal Affect, Appropriate Vital Signs Temp Pulse Resp BP Pulse Ox 96.7 F L 95 18 145/90 H 96 04/20/18 10:46 04/20/18 10:47 04/20/18 10:46 04/20/18 10:47 04/20/18 10:46 Oxygen Delivery Method Room Air Weight: 233 lb 11.04 oz Body Mass Index (BMI) 29.2 Intake and Output for Last 24 Hours Intake Total 1532 / 1532 Output Total 1850 / 1850 Balance -318 / -318 Laboratory Tests Past 24 Hrs WBC 15.7 H RBC 4.31 L Hgb 13.3 Hct 41.5 MCV 96.3 H MCH 30.9 MCHC 32.0 RDW 14.1 RDW Differential 49.7 H POC Glucose POC Glucose 165 H 162 H 135 H POC Glucose 144 H Discharge Activity: May Not Drive Weight Bearing Status: Weight bearing as tolerated Call your doctor if you observe: Fever of 101 or Higher, Inability to urinate, Inability to have a bowel movement, Shortness of breath, Dizziness, Fainting spells, Swelling in the ankles, Chest pain Home Medications: Medications to take at Discharge cilostazol 100 mg tablet 100 mg PO BID 04/05/18 clopidogrel 75 mg tablet 75 mg PO DAILY 04/05/18 lisinopril 20 mg tablet 20 mg PO BID tab 04/05/18 lovastatin 40 mg tablet 40 mg PO DAILY 04/05/18 metformin 1,000 mg tablet 1,000 mg PO BID 04/05/18 Aspirin E.C. [Ecotrin] 81 mg PO DAILY@0800 04/10/18 Cholecalciferol (Vitamin D3) [Vitamin D3] 2,000 unit PO DAILY 04/10/18 Cinnamon Bark [Cinnamon] 1,000 mg PO BID 04/10/18 Metoprolol Succinate [Toprol Xl] 50 mg PO BID 04/10/18 Grand Saline-3 Fatty Acids/Fish Oil [Fish Oil 1,000 mg Capsule] 1 each PO BID 04/10/18 Clopidogrel Bisulfate [Plavix] 75 mg PO DAILY 04/19/18 Primary Care Physician: Livan Mcfarland MD [Primary Care Provider] - Please follow up with your Primary Care Physician in: in 1- 2 weeks Please Follow Up With: Brian Brown MD When: in 1-2 weeks to reschedule surgery Please Follow Up With: Joe Phillip MD When: call office to schedule Medical Necessity - Tobacco Use Smoking Status: Former smoker Tobacco Use: Non-smoker Meaningful Use Info Meaningful Use Diagnoses (Choose all that apply): None applicable Code Visit Inpatient E AND M: 31982 Disch Hosp 04/20/18 1608 <Electronically signed by Gómez Joseph MD> Date Gómez Joseph MD Cosigner Signature (if applicable): Date CC: Livan Mcfarland MD; Gómez Joseph MD Signed CONSULTATION Observed: 04/20/2018 Status: F Source: [place] 11:13 AM [facility] REPOSITORY [facility] Medical Records Department [address] [place] [address] Consultation 04/20/18 1108 MR#: [id number] Acct: [id number] Name: RANULFO NEGRETE Rep #: [id number] : 1935 82 From: Chao Ruiz MD PCP: Livan Mcfarland MD Status: ADM IN Y Location: [facility] [id number] Problem List (1) Leukocytosis Status: Acute Reason for Consult: leukocytosis Consulted by: Dr. Joseph History of Present Illness: The patient is a 82 year old M with h/o CAD, bladder cancer who presented for elective R inguinal hernia repair. Found to have high wbc, surgery postponed, cxs sent, had cystoscopy done, started on ceftriaxone. Has felt fine. No new symptoms, no sick contacts, no new meds, no recent abx. Moved from [place], [place] in December. Does not recall ever being told he had abnormal wbc or h/o CLL. Has stable urinary frequency, no fever, no dysuria, no abd pain, no cough or SOB. No rash. Full ROS performed and neg except as noted above. 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) Coronary artery disease (Chronic) Dyslipidemia (Chronic) History of pulmonary embolism (Chronic) Peripheral arterial disease (Chronic) Obstructive sleep apnea (Chronic) Hypertension (Chronic) History of bladder cancer (Chronic) Allergies/Adverse Reactions: Allergies No Known Allergies Allergy (Verified 04/19/18 10:26) Home Medications: Ambulatory Orders Medication Instructions Recorded cilostazol 100 mg tablet 100 mg PO BID 04/05/18 - Social History SMOKING STATUS:: Former smoker Vital Signs Temp Pulse Resp BP Pulse Ox 96.7 F L 95 18 145/90 H 96 04/20/18 10:46 04/20/18 10:47 04/20/18 10:46 04/20/18 10:47 04/20/18 10:46 Oxygen Delivery Method Room Air Weight: 106 kg Body Mass Index (BMI) 29.2 Laboratory Tests Past 24 Hrs WBC 15.7 H RBC 4.31 L Hgb 13.3 Hct 41.5 MCV 96.3 H MCH 30.9 MCHC 32.0 RDW 14.1 RDW Differential 49.7 H - Other Studies Radiology: [] reviewed Other Studies: [] Route of nutrition/ use of supplements: [] Nutritional Intake: [] IV Site: [] Ochoa Catheter: [] - Physical Exam General: Alert, Oriented x3, Cooperative, No apparent distress HEENT: Atraumatic, PERRLA, EOMI Neck: Supple, No Nodes Lungs: Clear to auscultation, Normal air movement Cardiovascular: Regular rate, Regular Rhythm, No murmurs Abdomen: Bowel Sounds Present, Soft, Non Tender, Non-Distended Extremities: No edema Skin: No rashes IV Site: Peripheral, without redness Musculoskeletal: No Tenderness to Palpation of Joints or Extremities Neurological: Cranial nerves II-XII grossly intact - Assessment/Plan Antibiotics: [] Assessment/Plan: [] Active and Suspected Problems (Last Updated 04/05/18 @ 10:13 by Priya Swan) Leukocytosis (Acute) Lower urinary tract symptoms (Acute) Lymphocytosis with no physical symptoms. Denies any past h/o CLL, no recent infections, no recent med changes. UA with no wbc seen. Bcx and ucx pending. No evidence of infection. Wbc slightly improved this AM. Ok for d/c home off of abx. Recommend PCP follow-up with repeat CBC and obtaining past cbc results from PCP in [place] and from [facility]. D/w Dr. Joseph, thank you for this consultation. 04/20/18 1113 <Electronically signed by Chao Ruiz MD> Date Chao Ruiz MD Cosigner Signature (if applicable): Date CC: Joe Phillip MD; Livan Mcfarland MD; Gómez Joseph MD; Chao Ruiz MD Signed DISCHARGE INSTRUCTION Observed: 04/20/2018 Status: F Source: [place] 10:50 AM [facility] REPOSITORY [facility] Medical Records Department [address] [place] [address] Instructions for Home/Discharge Instructions 04/20/18 1048 MR#: [id number] Acct: [id number] Name: RANULFO NEGRETE Rep #: [id number] : 1935 82 From: Gómez Joseph MD PCP: Livan Mcfarland MD Status: ADM IN 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) Coronary artery disease (Chronic) Dyslipidemia (Chronic) History of pulmonary embolism (Chronic) Peripheral arterial disease (Chronic) Obstructive sleep apnea (Chronic) Hypertension (Chronic) History of bladder cancer (Chronic) You will use the following diet at home:: Calorie/Carbohydrate Controlled (specify 1200, 1400, etc) - 1800 ADA diet, Cardiac Your food should be the consistency of: Regular Discharge Activity: May Not Drive Weight Bearing Status: Weight bearing as tolerated Call your doctor if you observe: Fever of 101 or Higher, Inability to urinate, Inability to have a bowel movement, Shortness of breath, Dizziness, Fainting spells, Swelling in the ankles, Chest pain Allergies/Adverse Reactions: Allergies No Known Allergies Allergy (Verified 04/19/18 10:26) Medications to take at Discharge cilostazol 100 mg tablet 100 mg PO BID 04/05/18 clopidogrel 75 mg tablet 75 mg PO DAILY 04/05/18 lisinopril 20 mg tablet 20 mg PO BID tab 04/05/18 lovastatin 40 mg tablet 40 mg PO DAILY 04/05/18 metformin 1,000 mg tablet 1,000 mg PO BID 04/05/18 Aspirin E.C. [Ecotrin] 81 mg PO DAILY@0800 04/10/18 Cholecalciferol (Vitamin D3) [Vitamin D3] 2,000 unit PO DAILY 04/10/18 Cinnamon Bark [Cinnamon] 1,000 mg PO BID 04/10/18 Metoprolol Succinate [Toprol Xl] 50 mg PO BID 04/10/18 [place]-3 Fatty Acids/Fish Oil [Fish Oil 1,000 mg Capsule] 1 each PO BID 04/10/18 Clopidogrel Bisulfate [Plavix] 75 mg PO DAILY 04/19/18 Primary Care Physician: Livan Mcfarland MD [Primary Care Provider] - Please follow up with your Primary Care Physician in: in 1- 2 weeks Test Results: Test results from this visit will be discussed in further detail at your follow-up appointment, if applicable. Please Follow Up With: Brian Brown MD When: in 1-2 weeks to reschedule surgery Please Follow Up With: Joe Phillip MD When: call office to schedule 04/20/18 1050 <Electronically signed by Gómez Joseph MD> Date Gómez Joseph MD CC: Joe Phillip MD; Livan Mcfarland MD; Chao Ruiz MD HISTORY AND PHYSICAL Observed: 04/20/2018 Status: F Source: [place] EXAM 8:24 AM [facility] REPOSITORY [facility] Medical Records Department [address] [place] [address] History and Physical 04/19/18 1349 MR#: [id number] Acct: [id number] Name: RANULFO NEGRETE Rep #: [id number] : 1935 82 From: Gómez Joseph MD PCP: Livan Mcfarland MD Status: ADM IN Location: [address] 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 (5) Coronary artery disease Status: Chronic (6) Dyslipidemia Status: Chronic (7) History of pulmonary embolism Status: Chronic (8) Peripheral arterial disease Status: Chronic (9) Obstructive sleep apnea Status: Chronic (10) Hypertension Status: Chronic (11) History of bladder cancer Status: Chronic History of Present Illness Date of Admission: 04/19/18 Chief Complaint: Leukocytosis preoperative The patient is a 82 year old M with multiple comorbidities including coronary artery disease status post CABG in 2007, left CEA, tumor, TURBT om 09/17 amd 11/17 history of bladder and a small 3 tumor resection in October 2017 in [place] was scheduled for robotic assisted laparoscopic right inguinal hernia repair with mesh by Dr. Brown but was canceled because of leukocytosis. WBC count was found 17.8 thousand. There is no differential. A1c 7.3 in March 2018. Patient further said he has increased frequency, urgency for last few weeks along with chronic urinary incontinence. He sometimes have intermittent micturition and dribbling urine for a few weeks. Recently moved to [facility] and does not have a urologist was supposed to see Dr. Phillip next week. Denies fever, chills, URI symptoms, shortness of breath, chest pressure or palpitation. Sitting did not had major chest pain/PR or cardiac problem since bypass surgery in 2004. He also had right femoropopliteal bypass surgery. He had recent angiogram which shows 100% occlusion of [place] SFA and bypass but he has good collaterals to vessel runoff distally and foot. Right lower leg is little red but no tenderness or induration. 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) Coronary artery disease (Chronic) Dyslipidemia (Chronic) History of pulmonary embolism (Chronic) Peripheral arterial disease (Chronic) Obstructive sleep apnea (Chronic) Hypertension (Chronic) History of bladder cancer (Chronic) Medical History: Medical History (Last Updated 04/05/18 @ 10:13 by Priya Swan) Coronary artery disease I25.10 Diabetes E11.9 High cholesterol E78.00 History of pulmonary thrombosis Z86.711 PVD (peripheral vascular disease) I73.9 Sleep apnea G47.30 Hypertension I10 Allergies No Known Allergies Allergy (Verified 04/19/18 10:26) Home Medications: Ambulatory Orders Medication Instructions Recorded cilostazol 100 mg tablet 100 mg PO BID 04/05/18 Surgical History: Surgical History (Last Updated 04/05/18 @ 10:02 by Priya Swan) History of carotid endarterectomy Z98.890 History of heart bypass surgery Z95.1 History of left cataract extraction Z98.42 History of tonsillectomy and adenoidectomy Z98.890 history of surgery for bladder tumors history right leg bypass Smoking Status: Former smoker - *Family History Paternal Family History: Family History (Last Updated 04/05/18 @ 10:03 by Priya Swan) Sister Breast cancer Diabetes Mother Diabetes Brother Heart disease Hypertension History Items: No pertinent history Review of Systems Constitutional: Denies: Chills, Fever, Weight Change HEENT: Denies: Head Aches, Sinus Congestion, Sinus Drainage Cardiovascular: Denies: Chest Pain, Palpitations Respiratory: Reports: Cough - NO cough, chronic. Denies: Shortness of breath at rest, Sputum production Gastrointestinal: Denies: Abdominal Pain, Nausea, Vomiting Genitourinary: Reports: Frequency, Hematuria, Incontinence, Nocturia, Urgency. Denies: Dysuria Musculoskeletal: Reports: Joint Pain. Denies: Joint Tenderness Skin: Reports: Skin Changes - Right lower leg. Denies: Rash, Wounds Neurological: Denies: Numbness, Tingling, Focal weakness Psychiatric: Denies: Anxiety, Depression, Homicidal Ideations, Suicidal Ideations Hematologic/ Lymphatic: Denies: Easy Bruising, Easy Bleeding VTE Information - Inpt Only VTE Present on Admission: No VTE Mechan Device Prophylaxis: None VTE Pharm Prophylaxis ordered?: Yes Patient Problems: Active and Suspected Problems (Last Updated 04/05/18 @ 10:13 by Priya Swan) Leukocytosis (Acute) Lower urinary tract symptoms (Acute) - Physical Exam General: Alert, Oriented x3, Cooperative HEENT: Atraumatic, PERRLA, EOMI, Normocephalic Neck: Supple, No JVD, Negative Carotid Bruits Lungs: Clear to auscultation, No rhonchi, No wheeze, No rales, Diminished Cardiovascular: Regular rate, Regular Rhythm, Normal S1, Normal S2, No murmurs Abdomen: Bowel Sounds Present, Soft, Non Tender, Non-Distended Extremities: Capillary Refill Less than 3 Seconds, Edema - Bilateral lower leg mild edema. Skin: Rash Present - Right lower leg erythematous. Musculoskeletal: No Tenderness to Palpation of Joints or Extremities, Arthritic Changes Neurological: Cranial nerves II-XII grossly intact, Neuro grossly intact Psych/Mental Status: Normal Affect, Appropriate Vital Signs Temp Pulse Resp BP Pulse Ox 97.5 F L 52 L 14 156/74 H 95 04/19/18 10:31 04/19/18 10:31 04/19/18 10:31 04/19/18 10:31 04/19/18 10:31 Oxygen Delivery Method Room Air Weight: 236 lb 5.369 oz Body Mass Index (BMI) 29.5 Laboratory Tests Past 24 Hrs WBC 17.8 H RBC 4.68 Hgb 14.6 Hct 45.7 MCV 97.6 H MCH 31.2 MCHC 31.9 L RDW 14.2 RDW Differential 50.4 H Plt Count 171 MPV 10.5 POC Glucose POC Glucose 144 H Assessment/Plan All Active Problems (Last Updated 04/05/18 @ 10:13 by Priya Swan) Leukocytosis (Acute) Lower urinary tract symptoms (Acute) The patient is a 82 year old M with multiple comorbidities including coronary artery disease status post CABG in 2007, left CEA, tumor, TURBT om 09/17 amd 11/17 history of bladder and a small 3 tumor resection in October 2017 in [place] was scheduled for robotic assisted laparoscopic right inguinal hernia repair with mesh by Dr. Brown but was canceled because of leukocytosis. WBC count was found 17.8 thousand. There is no differential. Patient further said he has increased frequency, urgency, nocturia for last few weeks along with chronic urinary incontinence. In urology outpatient note, mentioned he has sometimes blood in the urine. He sometimes have intermittent micturition and dribbling urine for a few weeks. Recently moved to [facility]. He saw Dr. Phillip on April 03, 2018. Denies fever, chills, URI symptoms, shortness of breath, chest pressure or palpitation. The patient did not had major chest pain/PR or cardiac problem since bypass surgery in 2007. He also had right femoropopliteal bypass surgery. He had recent angiogram which shows 100% occlusion of [place] SFA and bypass but he has good collaterals to vessel runoff distally and foot. He had negative nuclear stress test in November 2016. EF 61%. Right lower leg is little red but no tenderness or induration. 1. Leukocytosis with recent onset lower urinary tract symptoms suspicion of possible UTI history of bladder cancer and multiple TURBT: The patient is being admitted on regular [facility] floor for further workup. UA with urine culture ordered. I do not see urgency for starting antibiotic before U/A patient is not having burning micturition or fever. After you have any urine culture is collected, patient to be started on ceftriaxone [address] Phillip called and informed and would like to see the patient. Urology consult. CRP ordered. Blood culture and chest x-ray PA and lateral ordered. 2 cardiovascular disease: Coronary artery disease status post CABG in 2007, left carotid endarterectomy, peripheral arterial disease of the right lower extremity status post femoropopliteal and total occlusion of [place] and graft: Continue aspirin, Plavix and cilostazol. Venous Doppler of lower extremity ordered Right inguinal reducible hernia: laparoscopic right inguinal hernia surgery is deferred. 3. Diabetes mellitus type 2: Last A1c 7.3 in March 2018. Accu-Chek before meals and at bedtime and cover with NovoLog sliding scale. Hold metformin. 4. Other chronic comorbidities include hypertension, dyslipidemia, obesity grade 3: Home medication reconciliation done. Code Visit Inpatient E AND M: 87327 Init Hosp L3 04/20/18823 <Electronically signed by Gómez Joseph MD> Date Gómez Joseph MD Cosigner Signature: Date (if applicable) CC: Livan Mcfarland MD; Gómez Joseph MD Signed BEDSIDE GLUCOSE Collected: 04/20/2018 Status: F Source: [place] 6:01 AM [facility] REPOSITORY TYPE CODE TESTS RESULT OUT OF REFERENCE UNITS RANGE LAB L501.080 70-110 mg/dL High BEDSIDE GLU 165 Result Comment: MANAGEMENT OF PATIENT CARE PER NURSING PROTOCOL Performed By: #### L501.080 #### [facility] Point of Care [address] [place] [address] [place] [address] CBC W/DIFF, AUTOMATED Collected: 04/20/2018 Status: F Source: [place] 5:29 AM [facility] REPOSITORY TYPE CODE TESTS RESULT OUT OF RANGE REFERENCE UNITS LAB L100.1000 4.4-11.0 K/mm3 High WBC 15.7 LAB L100.1200 4.6-6.2 M/mm3 Low RBC 4.31 LAB L100.1300 13.0-16.5 g/dl Normal HGB 13.3 LAB L100.1400 40-54 % Normal HCT 41.5 LAB L100.1500 80-94 fL High MCV 96.3 LAB L100.1600 27.0-32.0 pg Normal MCH 30.9 LAB L100.1700 32-36 g/gl Normal MCHC 32.0 LAB L100.1810 11.6-14.6 % Normal RDW CV 14.1 LAB L100.1820 35.1-43.9 fl High RDW SD 49.7 LAB L100.1900 150-450 K/mm3 Normal PLT 164 LAB L100.2000 6.2-12.0 fl Normal MPV 10.9 LAB L100.2100 47-70 % Low NEUT% 20.6 LAB L100.2200 19-41 % High LY% 72.8 LAB L100.2300 0-10 % Normal MONO% 4.5 LAB L100.2400 0-5 % Normal EO% 1.7 LAB L100.2500 0-1 % Normal BASO% 0.3 LAB L100.2550 0.0-0.9 % Normal IM GRAN % 0.100 Result Comment: IG% - Immature Granulocytes (promyelocytes, myelocytes and metamyelocytes) > 1% indicates that a LEFT SHIFT is Present. LAB L100.2620 2.0-7.7 X10 3/uL Normal Absolute Neut 3.2 LAB L100.2720 0.83-4.51 X10 3/ul High Absolute Lymph 11.40 LAB L100.4500 Normal SMEAR COMMENT SCANNED Result Comment: LYMPHOCYTOSIS NOTED LAB L100.4700 Normal REACTIVE LYMPH 3+ Performed By: #### L100.0100 #### [facility] [address] [facility]. [place], [place], [address] BEDSIDE GLUCOSE Collected: 04/19/2018 Status: F Source: [place] 9:43 PM [facility] REPOSITORY TYPE CODE TESTS RESULT OUT OF REFERENCE UNITS RANGE LAB L501.080 70-110 mg/dL High BEDSIDE GLU 162 Result Comment: MANAGEMENT OF PATIENT CARE PER NURSING PROTOCOL Performed By: #### L501.080 #### [facility] Point of Care [address] [facility] [place] [address] URINALYSIS, COMPLETE Collected: 04/19/2018 Status: C Source: [place] 8:35 PM [facility] REPOSITORY Order Comment: How was Urine Obtained? CLEAN CATCH TYPE CODE TESTS RESULT OUT OF RANGE REFERENCE UNITS LAB L400.3000 Yellow COLOR Normal Yellow LAB L400.3050 Clear Sl Normal CLARITY Cldy LAB L400.3200 Normal mg/dl High GLUCOSE, UR 100 LAB L400.3300 Negative mg/dL Normal BILIRUBIN URINE Negative LAB L400.3400 Negative mg/dl Normal KETONE UR Negative LAB L400.3465 1.002-1.030 Normal SP.GR. DIPSTX 1.010 LAB L400.3550 5.0 - 8.0 pH UR Normal 6.5 LAB L400.3600 Negative mg/dl High PROT 15 DIPSTX LAB L400.3700 Normal mg/dl High 1 UROBILI LAB L400.3750 Negative Normal NITRITE UR Negative LAB L400.3780 Negative /ul High OCCULT BLOOD-UR 250 LAB L400.3800 Negative /ul LEUK Normal ESTERASE Negative LAB L400.4050 0-5 /hpf WBC 0 Normal SEEN LAB L400.4100 0-5 /hpf Normal RBC-UA 10-25 SEEN LAB L400.4150 0-5 /hpf SQUAM Normal EPI 0-5 SEEN LAB L400.4300 None Seen /hpf 0 Normal BACTERIA SEEN LAB L400.4350 <or=2+ /hpf 0 Normal MUCUS, URINE SEEN LAB L400.4900 1+ Normal AMORPHOUS URATE Performed By: #### L400.0001 #### [facility] [address] [facility] [place], [address] VENOUS DUPLEX LOWER Observed: 04/19/2018 Status: F Source: [place] EXTREMITY 4:53 PM [facility] REPOSITORY [facility] Cardiovascular Services [address] [place] [id number] Venous Duplex US - Jaylan Extrem 04/19/18 1432 MR#: [id number] Acct: [id number] Name: RANULFO NEGRETE Rep #: [id number] : 1935 82 From: Chao Palomino MD Attending Dr: Gómez Joseph MD Status: ADM IN Ordering Dr: Gómez Joseph MD Date: 04/19/18 Location: [facility] Sex: M C Admitted: 04/19/18 Reason For Study: Redness of leg RIGHT LEFT GSV is normal. GSV is normal. CFV is compressible, spontaneous, phasic, CFV is compressible, spontaneous, phasic, competent and demonstrates normal competent, and demonstrates normal augmentation. augmentation. FV is compressible, spontaneous, phasic, FV is compressible, spontaneous, phasic, competent and demonstrates normal competent and demonstrates normal augmentation. augmentation. POP V is compressible, spontaneous, phasic, POP V is compressible, spontaneous, phasic, competent and demonstrates normal competent and demonstrates normal augmentation. augmentation. T/P Trunk is compressible. T/P Trunk is compressible. PTV is compressible. PTV is compressible. RT PerV is compressible. LT PerV is compressible. Procedure Exam performed portable in patient room. A preliminary report was called and/or faxed to [facility] @ 3:05 pm. Interpretation Summary No evidence for acute deep venous thrombosis bilateral lower extremities with patent and compressible bilateral great saphenous veins. Ordering Physician: Gómez Joseph Referring Physician: Livan Mcfarland Performed By: Silviano PEDERSON [facility] Priya and Student 04/19/181652 Date Chao Palomino MD CC: Livan Mcfarland MD; Gómez Joseph MD Date Dictated: 04/19/18 1432 Date Transcribed: 04/19/181652 Director Of Analytics: Signed BEDSIDE GLUCOSE Collected: 04/19/2018 Status: F Source: [place] 4:42 PM [facility] REPOSITORY TYPE CODE TESTS RESULT OUT OF REFERENCE UNITS RANGE LAB L501.080 70-110 mg/dL High BEDSIDE GLU 135 Result Comment: MANAGEMENT OF PATIENT CARE PER NURSING PROTOCOL Performed By: #### L501.080 #### [facility] Point of Care [address] [place] [address] OPERATIVE REPORT Observed: 04/19/2018 Status: F Source: [place] 4:20 PM [facility] REPOSITORY [facility] Medical Records Department [address] [place] [address] Operative Report 04/19/18 1618 MR#: [id number] Acct: [id number] Name: RANULFO NEGRETE Rep #: [id number] : 1935 82 From: Joe Phillip MD PCP: Livan Mcfarland MD Status: ADM IN Location: [place] [address] Report of Operation Date of Procedure: 04/19/18 Pre-Operative Diagnosis: History of bladder cancer Post-Operative Diagnosis: Same Surgery/Procedure Performed:: Cystoscopy Description of Surgical Findings:: 10-year-old with a history of bladder cancer, penis was prepped and draped in usual sterile fashion went into the bladder with a flexible cystoscope, the entire length the urethra is normal, the prostate was normal, the prostate was slight enlargement of the prostate but no significant obstruction, within the bladder trigone was identified left and right ureteral orifice was normal he did have some papillary tumors in the posterior aspect of the bladder multiple areas within the posterior aspect and right lateral wall the bladder that appeared to be recurrence appears to have 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 Type of Anesthesia:: Local Drains: None - Admit VTE Documentation VTE Present on Admission: No 04/19/18 1620 <Electronically signed by Joe Phillip MD> Date Joe Phillip MD CC: Brian Brown MD; Joe Phillip MD; Livan Mcfarland MD Signed CONSULTATION Observed: 04/19/2018 Status: F Source: [place] 4:18 PM [facility] REPOSITORY [facility] Medical Records Department [address] [place] [address] Consultation 04/19/18 1616 MR#: [id number] Acct: [id number] Name: RANULFO NEGRETE Rep #: [id number] : 1935 82 From: Joe Phillip MD PCP: Livan Mcfarland MD Status: ADM IN Location: [place] [id number] Reason for Consult Date of Consultation: 04/19/18 Reason for Consultation: History of bladder cancer History of Present Illness: The patient is a 82 year old male with a history of a very large bladder tumor removed and after this he had BCG therapy that he had recurrence another course of BCG therapy he is new to the area and today he was going to have a hernia surgery which was canceled he was admitted to the hospital was asked to see the patient while he was in the hospital so we did a review of his symptoms and today also did a cystoscopy 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) Coronary artery disease (Chronic) Dyslipidemia (Chronic) History of pulmonary embolism (Chronic) Peripheral arterial disease (Chronic) Obstructive sleep apnea (Chronic) Hypertension (Chronic) History of bladder cancer (Chronic) Medical History: Medical History (Last Updated 04/05/18 @ 10:13 by Priya Swan) Coronary artery disease I25.10 Diabetes E11.9 High cholesterol E78.00 History of pulmonary thrombosis Z86.711 PVD (peripheral vascular disease) I73.9 Sleep apnea G47.30 Hypertension I10 Allergies No Known Allergies Allergy (Verified 04/19/18 10:26) Home Medications: Ambulatory Orders Medication Instructions Recorded cilostazol 100 mg tablet 100 mg PO BID 04/05/18 Surgical History: Surgical History (Last Updated 04/05/18 @ 10:02 by Priya Swan) History of carotid endarterectomy Z98.890 History of heart bypass surgery Z95.1 History of left cataract extraction Z98.42 History of tonsillectomy and adenoidectomy Z98.890 history of surgery for bladder tumors history right leg bypass Surgical History: - - TURBT multiple Lives: Spouse/ Significant Other Smoking Status: Former smoker Tobacco Use: Non-smoker Alcohol: None Drugs: None - *Family History Paternal Family History: Family History (Last Updated 04/05/18 @ 10:03 by Priya Swan) Sister Breast cancer Diabetes Mother Diabetes Brother Heart disease Hypertension History Items: No pertinent history Review of Systems Constitutional: Denies: Chills, Fever, Weight Change HEENT: Denies: Head Aches, Sinus Congestion, Sinus Drainage Cardiovascular: Denies: Chest Pain, Palpitations Respiratory: Denies: Cough, Shortness of breath at rest, Sputum production Gastrointestinal: Denies: Abdominal Pain, Nausea, Vomiting Genitourinary: Denies: Dysuria Musculoskeletal: Denies: Joint Pain, Joint Tenderness Skin: Denies: Rash, Wounds Neurological: Denies: Numbness, Tingling, Focal weakness Psychiatric: Denies: Anxiety, Depression, Homicidal Ideations, Suicidal Ideations Hematologic/ Lymphatic: Denies: Easy Bruising, Easy Bleeding Physical Exam - Physical Exam Vital Signs Temp 97.5 F L 04/19/18 10:31 Pulse 52 L 04/19/18 10:31 Resp 14 04/19/18 10:31 BP 156/74 H 04/19/18 10:31 Pulse Ox 95 04/19/18 10:31 Intake AND Output Weight: 106 kg General: Alert, Oriented x3 HEENT: Atraumatic Oral: Moist Mucosa Neck: Supple Lungs: Normal air movement Cardiovascular: Regular rate Abdomen: Soft Rectal: Exam deferred Laboratory Tests Past 24 Hrs WBC 17.8 H RBC 4.68 Hgb 14.6 Hct 45.7 MCV 97.6 H MCH 31.2 MCHC 31.9 L Assessment/Plan All Active Problems (Last Updated 04/05/18 @ 10:13 by Priya Swan) Leukocytosis (Acute) Lower urinary tract symptoms (Acute) 82-year-old male has a history of bladder cancer, surgery was canceled today because of elevated white blood count I do not think this is related to his bladder cancer today we did a cystoscopy which was positive for multiple recurrences within his bladder. 04/19/18 1618 <Electronically signed by Joe Phillip MD> Date Joe Phillip MD Cosigner Signature (if applicable): Date CC: Brian Brown MD; Joe Phillip MD; Livan Mcfarland MD Signed BASIC METABOLIC Collected: 04/19/2018 Status: F Source: [place] PROFILE (BMP) 3:00 PM [facility] REPOSITORY TYPE CODE TESTS RESULT OUT OF RANGE REFERENCE UNITS LAB L501.0100 74-106 mg/dL High GLU 135 Result Comment: Fasting Glucose result greater than or equal to 126 mg/dL suggests DIABETES MELLITUS per A.D.A. criteria. Please note revised GLUCOSE reference range effective 2017. LAB L501.1000 7-18 mg/dL Normal BUN 15 LAB L501.1100 0.70-1.30 mg/dL Normal CREAT,SERUM 1.00 Result Comment: The validity of the calculated GFR AND GFRAA in patients over 70 years has not been determined. Clinical correlation is essential. LAB L501.1110 >60 mL/min Normal EST GFR 76 Result Comment: Non- GFR Calc LAB L501.1115 >60 mL/min Normal EST GFR - AA 92 Result Comment: GFR Calc LAB L501.1255 ml/min Normal Estimated CRCL 70.42 LAB L501.1300 10-20 RATIO Normal BUN/CRE 15.0 LAB L501.2200 8.5-10 mg/dL Normal .1 CA 9.1 LAB L501.5300 136-14 mmol/L Normal 5 NA 142 LAB L501.5600 3.5-5. mmol/L Normal 1 K 4.6 LAB L501.5900 98-107 mmol/L High CL 108 LAB L501.6100 21.0-3 mmol/L Normal 2.0 CO2 30.0 LAB L501.6200 5-15 Low GAP 4 Performed By: #### L500.2500, L501.6710 #### [facility] [address] [place], [place], [address] CRP Collected: 04/19/2018 Status: F Source: [place] 3:00 PM [facility] REPOSITORY TYPE CODE TESTS RESULT OUT OF RANGE REFERENCE UNITS LAB L501.6710 0.0-3.0 mg/L High 5.87 C-REACTIVE PROT Result Comment: C-Reactive Protein (CRP) provides useful information for the diagnosis, therapy and monitoring of inflammatory processes and associated diseases. For the evaluation of Relative Risk for Cardiovascular Disease, a High Sensitivity CRP (HSCRP) should be ordered. Performed By: #### L500.2500, L501.6710 #### [facility] [address] [place] [place], [address] Observed: 04/19/2018 Status: F Source: [place] CULTURE, BLOOD (WB) 3:00 PM [facility] REPOSITORY BC No growth in 5 days. Performed By: #### M200.1000 #### [facility] [address] [place], [address] CHEST PA AND LATERAL Observed: 04/19/2018 Status: F Source: [place] 2:19 PM [facility] REPOSITORY [facility] Imaging Services [address] [place] [address] Chest PA and Lateral MR#: [id number] Acct: [id number] Name: RANULFO NEGRETE Rep #: [id number] : 1935 M 82 From: Maycol Diaz MD PCP: Livan Mcfarland MD Status: ADM IN Study: Chest PA and Lateral Date of Exam: 04/19/18 Exam# [id number] Ordering Dr: Gómez Joseph MD STUDY: X-RAY CHEST REASON FOR EXAM: Male, 82 years old. Cough TECHNIQUE: Frontal and lateral views of the chest COMPARISON: None. FINDINGS: The lungs are clear. There are no pleural effusions. There is no pneumothorax. The heart is normal in size. The patient is status post sternotomy and coronary artery bypass. The visualized osseous structures are within normal limits. RAD/Chest PA and Lateral IMPRESSION: No acute thoracic pathology. Electronically Signed: Maycol Diaz, at 16:35 EDT Tel , Service support , CC: Livan Mcfarland MD; Gómez Joseph MD Director Of Analytics: Signed KIDNEY AND BLADDER Observed: 04/19/2018 Status: F Source: [place] 2:06 PM [facility] REPOSITORY [facility] Imaging Services [address] [place] [address] Kidney and Bladder MR#: [id number] Acct: [id number] Name: RANULFO NEGRETE Rep #: [id number] : 1935 M 82 From: Maycol Diaz MD PCP: Livan Mcfarland MD Status: ADM IN Study: Kidney and Bladder Date of Exam: 04/19/18 Exam# [id number] Ordering Dr: Gómez Joseph MD STUDY: RENAL ULTRASOUND - COMPLETE REASON FOR EXAM: Male, 82 years old. Renal insufficiency TECHNIQUE: Ultrasound evaluation of the kidneys was performed with real-time and static abad-scale imaging. COMPARISON: None available. FINDINGS: RIGHT KIDNEY: Normal location of the right kidney, which is normal in size. The right kidney measures 13.0 cm. There is a normal cortex of the right kidney. There is no right renal mass or cyst. There are no right renal calculi. There is no right hydronephrosis. DISTAL RIGHT URETER: There is non-visualization of the distal right ureter. There is no demonstrated right ureterovesical junction calculus. There is no demonstrated right ureteral jet. LEFT KIDNEY: Normal location of the left kidney, which is normal in size. The left kidney measures 12.5 cm. There is a normal cortex of the left kidney. There is a 6.5 x 5.1 x 5.0 cm cyst in the upper pole of the left kidney. There are no left renal calculi. There is no left hydronephrosis. DISTAL LEFT URETER: There is non-visualization of the distal left ureter. There is no demonstrated left ureterovesical junction calculus. There is no demonstrated left ureteral jet. BLADDER: The urinary bladder is partially distended and appears unremarkable. US/Kidney and Bladder IMPRESSION: Simple cyst in the left kidney. Otherwise, normal kidneys. Electronically Signed: Maycol Diaz, at 19:48 EDT Tel , Service support , CC: Livan Mcfarland MD; Gómez Joseph MD Director Of Analytics: Signed Observed: 04/19/2018 Status: F Source: [place] CULTURE, URINE 2:06 PM [facility] REPOSITORY Comments: use urine sent by Urine Culture Culture exhibits no growth. Performed By: #### M100.0650 #### [facility] [address] [place], [place], [address] BEDSIDE GLUCOSE Collected: 04/19/2018 Status: F Source: [place] 10:42 AM [facility] REPOSITORY TYPE CODE TESTS RESULT OUT OF REFERENCE UNITS RANGE LAB L501.080 70-110 mg/dL High BEDSIDE GLU 144 Result Comment: MANAGEMENT OF PATIENT CARE PER NURSING PROTOCOL Performed By: #### L501.080 #### [facility] Point of Care [address] [place] [address] CBC-COMPLETE BLOOD CNT Collected: 04/19/2018 Status: F Source: [place] NO DIFF 10:16 AM [facility] REPOSITORY TYPE CODE TESTS RESULT OUT OF RANGE REFERENCE UNITS LAB L100.1000 4.4-11.0 K/mm3 High WBC 17.8 LAB L100.1200 4.6-6.2 M/mm3 Normal RBC 4.68 LAB L100.1300 13.0-16.5 g/dl Normal HGB 14.6 LAB L100.1400 40-54 % Normal HCT 45.7 LAB L100.1500 80-94 fL High MCV 97.6 LAB L100.1600 27.0-32.0 pg Normal MCH 31.2 LAB L100.1700 32-36 g/gl Low MCHC 31.9 LAB L100.1810 11.6-14.6 % Normal RDW CV 14.2 LAB L100.1820 35.1-43.9 fl High RDW SD 50.4 LAB L100.1900 150-450 K/mm3 Normal PLT 171 LAB L100.2000 6.2-12.0 fl Normal MPV 10.5 Performed By: #### L100.0500 #### [facility] [address] [place], [address] 12 LEAD ELECTROCARDIOGRAM Observed: 04/10/2018 Status: F Source: [place] 3:40 PM [facility] REPOSITORY [facility] Cardiovascular Services [address] [place] [address] 12 Lead EKG 04/05/18 1109 MR#: [id number] Acct: [id number] Name: RANULFO NEGRETE Rep #: [id number] : 1935 82 From: Abhilash Luu MD Attending Dr: Brian Brown MD Status: REG CLI Ordering Dr: Brian Brown MD Date: 04/05/18 Location: [facility] Sex: M C Admitted: Test Reason : PREOP Blood Pressure : / mmHG Vent. Rate : 066 BPM Atrial Rate : 065 BPM P-R Int : 190 ms QRS Dur : 126 ms QT Int : 394 ms P-R-T Axes : 064 -46 054 degrees QTc Int : 413 ms Normal sinus rhythm Left ventricular hypertrophy with QRS widening Abnormal ECG Confirmed by BELL MARES, ABHILASH ([id number]), newspaper managing editor TAM ARCHULETA ([id number]) on 04/10/2018 3:39:48 PM Referred By: Brian Brown Confirmed By:ABHILASH LUU MD 04/10/18 1539 Date Abhilash Luu MD CC: Brian Brown MD; Livan Mcfarland MD Signed SURGERY VISIT REPORT Observed: 04/06/2018 Status: F Source: [place] 10:44 AM [facility] REPOSITORY [facility] [address] [place] [address] OFFICE VISIT Date of Service: 04/05/18 MR#: [id number] Acct: [id number] Name: RANULFO NEGRETE Rep #: [id number] : 1935 Provider: Brian Brown MD Age/Sex: 82/M Location: [facility] Status: Signed with Addenda ADDENDUM by Brian Brown MD on 04/06/18 at 1043 Addendum entered and electronically signed by Brian Brown MD 04/06/18 10:43: I discussed the case with my partner Dr. Palomino and he agrees that it would be safe to proceed with surgery off of the Plavix and Pletal but but continuing the aspirin. He recommends doing a laparoscopically to avoid the previously dissected right groin. I discussed robotic assisted laparoscopic right inguinal hernia repair with mesh with the patient and I discussed the risks including but not limited to bleeding, infection, bowel injury, injury to the vessels, injury to spermatic cord and chronic groin pain. The patient agrees to change to robotic assisted laparoscopic right inguinal hernia repair. Brian Brown MD Pager: [facility] [address] [place] [address], [address] [place] [address] Office: Intake Allergies No Known Allergies Allergy (Unverified 04/05/18 10:06) Medications cilostazol 100 mg tablet 100 mg PO BID 04/05/18 [History Confirmed 04/05/18] clopidogrel 75 mg tablet 75 mg PO DAILY 04/05/18 [History Confirmed 04/05/18] lisinopril 20 mg tablet 20 mg PO BID tab 04/05/18 [History Confirmed 04/05/18] lovastatin 40 mg tablet 40 mg PO DAILY 04/05/18 [History Confirmed 04/05/18] metformin 1,000 mg tablet 1,000 mg PO BID 04/05/18 [History Confirmed 04/05/18] metoprolol succinate ER 50 mg capsule sprinkle, ext. release 24 hr 50 mg PO BID ea 04/05/18 [History Confirmed 04/05/18] Assessment AND Plan Problems 1. Right inguinal hernia K40.90 Plan - Brian Brown MD 1. The patient has a large symptomatic right inguinal hernia. I explained conservative treatment versus repair. I explained the risks of incarceration or strangulation with observation. 2. The patient is on multiple blood thinners. He has had right lower extremity bypass. He says the bypass is not functional at this time and all of his blood flow is collateral. He says that he has stopped blood thinners in the past several times for surgeries but I would like approval from his PCP before we perform surgery. I would ask him to stop his Pletal and Plavix 5 days before surgery but he can continue his aspirin. 3. I explained the risks of inguinal hernia surgery including but not limited to bleeding, infection, injury to surrounding organs such as the spermatic cord and blood vessels and chronic groin pain. I also explained there is a risk of recurrence and there would be mesh placed. The patient understands all the risks and is willing to proceed with open right inguinal hernia repair. I will perform this under MAC/local. 4. I spent over 45 minutes with the patient and more than half this was spent in counseling. Brian Brown MD Pager: [facility] [address] [place] [address], [address] [place] [address] Office: Orders Orders: 04/06/18 1044 <Electronically signed by Brian Brown MD> Date Brian Brown MD cc: Livan Mcfarland MD * Signed Intake Vital Signs04/05/18 Height 6 ft 3 in 04/05/18 Weight: 237 lb Intake Visit Reasons: inguinal hernia Manager Of Photography Required: No Is patient in pain?: No Allergies No Known Allergies Allergy (Unverified 04/05/18 10:06) Medications cilostazol 100 mg tablet 100 mg PO BID 04/05/18 [History Confirmed 04/05/18] clopidogrel 75 mg tablet 75 mg PO DAILY 04/05/18 [History Confirmed 04/05/18] lisinopril 20 mg tablet 20 mg PO BID tab 04/05/18 [History Confirmed 04/05/18] lovastatin 40 mg tablet 40 mg PO DAILY 04/05/18 [History Confirmed 04/05/18] metformin 1,000 mg tablet 1,000 mg PO BID 04/05/18 [History Confirmed 04/05/18] metoprolol succinate ER 50 mg capsule sprinkle, ext. release 24 hr 50 mg PO BID ea 04/05/18 [History Confirmed 04/05/18] [facility] Medical History Coronary artery disease (Acute) Diabetes (Acute) High cholesterol (Acute) History of pulmonary thrombosis (Acute) PVD (peripheral vascular disease) (Acute) Sleep apnea (Acute) Hypertension (Chronic) Surgical History History of carotid endarterectomy (Acute) History of heart bypass surgery (Acute) History of left cataract extraction (Acute) History of tonsillectomy and adenoidectomy (Acute) history of surgery for bladder tumors (Acute) history right leg bypass (Acute) Family History Sister Breast cancer Diabetes Mother Diabetes Brother Heart disease Hypertension Social History Smoking Status: Former smoker alcohol intake: current alcohol intake frequency: a few times a week details: May drink 3-4 beers a day then nothing for a week. Occasional moonshine substance use type: does not use HPI HPI HPI: RANULFO NEGRETE, is a 82 M who presents to the office today for right inguinal bulging. The patient reports he has had a right inguinal hernia for several years. He says it hurts when he coughs and he is only able to reduce it sometimes. He says that his vascular surgeon was going to repair it but wanted to wait until his bladder issues were resolved but it is becoming more symptomatic. He recently moved here in December of this year and is not established with a vascular surgeon or heating equipment installer yet. He does say that his blood thinners were temporarily held multiple times in the past for other surgeries. ROS General General: No weight change, appetite, fatigue, colon cancer, breast cancer or weakness HEENT HEENT: Yes eye surgery; no difficulty swallowing, eye injury, swollen glands or hoarseness Endo Endocrine: Yes diabetes mellitus; no thyroid disease, thyroid cancer, Hair loss, heat intolerance or cold intolerance Skin Skin: No rash or changing moles Breast Breast: No left breast lump, right breast lump, nipple discharge, breast pain, abnormal mammogram, abnormal US or breast enlargement Musc Musculoskeletal: No back problems, arthritis, rheumatoid arthritis, gout or joint pain Cardio Cardiovascular: Yes heart disease and high blood pressure; no murmur, pacemaker, atrial fibrillation, heart attack, heart stent, palpitations, shortness of breat with exertion or chest pain Psych Psychiatric: No depression, anxiety or hearing voices Resp Respiratory: No shortness of breath, Yes sleep apnea, No cough, No COPD, No asthma, No emphysema, No wheezing Gastro Gastrointestinal: No abdominal pain, No nausea or vomiting, No diarrhea, No constipation, No blood in stool, No acid reflux, No hemorrhoids, No ulcers, No gallbladder problem, No black,tarry stools Andrea Hematologic: Yes blood thinners, Yes blood disorders, No bleeding, No anemia, Yes blood clots Neuro Neurologic: No system reviewed and no additional complaints, except as docu, No as per HPI, No abnormal walking, No abnormal hearing, No abnormal movements, No abnormal speech, No behavioral changes, No burning sensations, No confusion, No seizure-like activity, No unsteadiness, No dizziness, No localized weakness, No frequent falls, No headache(s), No lack of coordination, No loss of vision, No memory loss, No numbness, No other visual disturbances, No radiating pain, No restless legs, No sensory deficit, No fainting, No tingling, No tremor(s), No weakness, No other Exam Const General: cooperative Orientation: alert, oriented x3 HENMT Head: normal to inspection Ears: hearing grossly normal bilaterally Eyes General: appearance normal, both eyes and all related structures Visual Panda: normal visual panda by confrontation Neck Neck: normal visual inspection Chest Chest palpation AND inspection: normal inspection of the chest Breast Palpation: No nipple discharge Resp Effort AND Inspection: normal respiratory effort Auscultation: clear to auscultation bilaterally Cardio Rate: regular rate Rhythm: regular rhythm Heart Sounds: no murmurs GI Inspection: non-distended Palpation: soft, nontender Other: The patient has a large right inguinal hernia which is reducible. Musc Cervical Spine: normal cervical lordosis, cervical ROM normal Skin General: no rashes or lesions noted Neuro General: alert, oriented x3 Cranial Nerves: CN's II-XI intact bilaterally Cognition: normal cognition Extrem General: normal to inspection, full ROM Psych Appearance: grossly normal Affect: normal affect Assessment AND Plan Problems 1. Right inguinal hernia K40.90 Plan 1. The patient has a large symptomatic right inguinal hernia. I explained conservative treatment versus repair. I explained the risks of incarceration or strangulation with observation. 2. The patient is on multiple blood thinners. He has had right lower extremity bypass. He says the bypass is not functional at this time and all of his blood flow is collateral. He says that he has stopped blood thinners in the past several times for surgeries but I would like approval from his PCP before we perform surgery. I would ask him to stop his Pletal and Plavix 5 days before surgery but he can continue his aspirin. 3. I explained the risks of inguinal hernia surgery including but not limited to bleeding, infection, injury to surrounding organs such as the spermatic cord and blood vessels and chronic groin pain. I also explained there is a risk of recurrence and there would be mesh placed. The patient understands all the risks and is willing to proceed with open right inguinal hernia repair. I will perform this under MAC/local. 4. I spent over 45 minutes with the patient and more than half this was spent in counseling. Brian Brown MD Pager: [facility] [address] [place] [address], [address] [place] [address] Office: Orders Orders: Coding Level of Care Code Off vis,new,level 4 Diagnoses Right inguinal hernia K40.90 Time Spent (min) 45 04/05/18 1148 <Electronically signed by Brian Brown MD> Date Brian Brown MD Cosigner Signature: Date (if applicable) CC: Livan Mcfarland MD HEMOGLOBIN A1C Collected: 03/07/2018 Status: F Source: [place] 8:14 AM [facility] REPOSITORY TYPE CODE TESTS RESULT OUT OF RANGE REFERENCE UNITS LAB L501.9985 4.2-6.3 % High HGB A1C 7.3 Performed By: #### L501.9985 #### [facility] [address] [place], [address] BASIC METABOLIC Collected: 03/07/2018 Status: F Source: [place] PROFILE (BMP) 8:14 AM [facility] REPOSITORY TYPE CODE TESTS RESULT OUT OF RANGE REFERENCE UNITS LAB L501.0100 74-106 mg/dL High GLU 167 Result Comment: Fasting Glucose result greater than or equal to 126 mg/dL suggests DIABETES MELLITUS per A.D.A. criteria. Please note revised GLUCOSE reference range effective 2017. LAB L501.1000 7-18 mg/dL High BUN 22 LAB L501.1100 0.70-1.30 mg/dL Normal CREAT,SERUM 1.26 Result Comment: The validity of the calculated GFR AND GFRAA in patients over 70 years has not been determined. Clinical correlation is essential. LAB L501.1110 >60 mL/min Low EST GFR 58 Result Comment: Non- GFR Calc LAB L501.1115 >60 mL/min Normal EST GFR - AA 71 Result Comment: GFR Calc LAB L501.1300 10-20 RATIO Normal BUN/CRE 17.5 LAB L501.2200 8.5-10.1 mg/dL CA Normal 9.2 LAB L501.5300 136-145 mmol/L NA Normal 143 LAB L501.5600 3.5-5.1 mmol/L K Normal 4.6 LAB L501.5900 98-107 mmol/L CL Normal 107 LAB L501.6100 21.0-32.0 mmol/L Normal CO2 27.0 LAB L501.6200 5-15 Normal GAP 9 Performed By: #### L500.2500, L500.3400, L500.4100 #### [facility] [address] [place], [address] LIVER PROFILE Collected: 03/07/2018 Status: F Source: [place] 8:14 AM [facility] REPOSITORY TYPE CODE TESTS RESULT OUT OF RANGE REFERENCE UNITS LAB L501.1500 6.4-8.2 g/dL Normal T PROT 6.5 LAB L501.1800 3.2-5.0 g/dL Normal ALB 3.3 LAB L501.1950 2.2-4.2 g/dL Normal GLOB 3.2 LAB L501.4100 15-37 U/L Low AST 14 LAB L501.4305 45-117 U/L Normal ALK P 52 LAB L501.4405 16-61 U/L Normal ALT 21 LAB L501.4600 0.20-1.00 mg/dL Normal T BILI 0.60 LAB L501.4700 0.00-0.30 mg/dL Normal D BILI 0.11 Performed By: #### L500.2500, L500.3400, L500.4100 #### [facility] [address] [place], [place], [address] LIPID PROFILE Collected: 03/07/2018 Status: F Source: [place] 8:14 AM [facility] REPOSITORY TYPE CODE TESTS RESULT OUT OF RANGE REFERENCE UNITS LAB L501.4900 200 mg/dL Normal CHOL 133 Result Comment: <200 mg/dL Desirable 200-240 mg/dL Borderline >240 mg/dL High Risk LAB L501.5000 mg/dL Normal TRIG 75 Result Comment: The drugs N-Acetylcysteine and Metamizole may falsely depress this assay. Serum Triglycerides Reference Interval Normal <150 mg/dL Borderline high 150 - 199 mg/dL High 200 - 499 mg/dL Very High > or = 500 mg/dL LAB L501.6400 mg/dL Normal HDL 42 Result Comment: The drugs N-Acetylcysteine and Metamizole may falsely depress this assay. Reference Range HDL <40 mg/dL Low HDL Cholesterol HDL >or= 60 mg/dL High HDL Cholesterol LAB L501.6500 0-130 mg/dL Normal LDL 76 LAB L501.6600 5-40 mg/dL Normal VLDL 15 Performed By: #### L500.2500, L500.3400, L500.4100 #### [facility] [address] [place], [place], [address] ALLERGIES ALLERGIES DATE TYPE / CODE NAME / CODE REACTION SEVERITY SOURCE 05/08/2018 Drug No Known Unknown [facility] Allergy/4160 Allergies/F00 Hospital 53358(SNOMED 2145418(RXNOR Repository CT) M) ENCOUNTERS ENCOUNTERS ADMIT/DISCHARGE ACCOUNT ADMITTING ENCOUNTER LOCATION SOURCE NUMBER CLASS 06/02/2018 [id number] [place] 4 [facility] ing:MFPLAB Repository 06/01/2018 [id number] Amb[place] 0 [facility] ing:LABSPEC Repository 05/12/2018/ [id number] Ambulatory [place] 8 5 [facility] ing:SDCRoom: Repository AC16 04/26/2018 [id number] Ambulatory [place] 4 [facility] ing:MFPLAB Repository 04/19/2018/ [id number] Jake, Inpatient [place] 8 9 [place] Encounter [facility] ing:SJ6Lblm: Repository YC782Iwa: 1 04/19/2018 [id number] Jake, Ambulatory BMSBuilding:B [place] 7 [place] MS.[facility] Repository 04/19/2018 [id number] [facility], Ambulatory BMSBuilding:B [place] 3 [place] MS.[facility] Repository 04/19/2018/ [id number] Ambulatory BMSBuilding:B [place] 8 1 MS.[facility] Repository 04/05/2018 [id number] Ambulatory BMSBuilding:B [place] 9 MS.[facility] Repository 04/05/2018 [id number] Ambulatory [place] Sebast[place] 9 [facility] ing:CVS Repository 04/05/2018 [id number] Ambulatory BMSBuilding:W [place] 4 [facility] Repository 04/05/2018/ [id number] Ambulatory BMSBuilding:B [place] 8 4 MS.[facility] Repository 03/07/2018 [id number] Ambulatory [place] 9 [facility] ing:MFPLAB Repository PAYERS PAYERS ENCOUNTER GUARANTOR PAYER SUBSCRIBER SOURCE 06/02/2018 RANULFO Tadeo Primary RANULFO [id number] Insurance:MEDICARE EDDIEB: [facility] ASHER, PART A BPolicy [id number] [facility] Hospital [address]Vtx: Number: Repository [id number] (HP) Date:2018-06-02 06/02/2018 Secondary RANULFO E [place] Insurance:AARPPolicy ANSHUTZDOB: Community Number: [id number] Hospital [id number] Repository Date:2802-46-71BZ [address], [place] [address]BY: 06/02/2018 Tertiary NOT GIVENUNK [place] Insurance:SELF PAY [facility] Number: Effective Repository Date:2018-06-02 06/01/2018 RANULFO E Primary RANULFO Cro[place] [id number] Insurance:MEDICARE ANSHUTZDOB: Community CRISTINA RDSHREVE, PART A [facility] [id number] General Hospital [address]Xrm: Number: Repository [id number] (HP) Date:2018-06-01 06/01/2018 Secondary [place]AN[place]FO E [place] Insurance:AARPPolicy ANSALBANTZDOB: Community Number: [id number] Hospital [id number] Repository Date:2768-81-23GV [address], [place] [address]JN: 06/01/2018 Tertiary NOT GIVENUNK [place] Insurance:SELF PAY [facility] Number: Effective Repository Date:2018-06-01 05/12/2018 RANULFO E Primary RANULFO [place]we [id number] Insurance:MEDICARE ANSHUTZDOB: Community CRISTINA SHAWNHREVE, PART A [facility] [id number] General Hospital [address]Stz: Number: Repository [id number] (HP) Date:2018-04-24 05/12/2018 Secondary RANULFO E [place] Insurance:AARPPolicy ANSHUTZDOB: Community Number: [id number] Hospital [id number] Repository Date:7978-57-49TN [address], [place] [address]TB: 05/12/2018 Tertiary NOT GIVENUNK [place] Insurance:SELF PAY [facility] Number: Effective Repository Date:2018-04-24 04/26/2018 RANULFO E Primary RANULFO Crowe [id number] Insurance:MEDICARE ANSHUTZDOB: Community CRISTINA RDSHREVE, PART A olic [id number] General Hospital [address]Kvi: Number: Repository [id number] (HP) Date:2018-04-26 04/26/2018 Secondary RANULFO E [place] Insurance:AARPPolicy VAIBHAVTZDOB: Community Number: [id number] Hospital [id number] Repository Date:8145-57-75PP [address], [place] [address]JA: 04/26/2018 Tertiary NOT GIVENUNK [place] Insurance:SELF PAY [facility] Number: Effective Repository Date:2018-04-26 04/19/2018 RANULFO E Primary RANULFO E [place] [id number] Insurance:MEDICARE ANSHUTZDOB: [facility] CRISTINA MARIEEVE, PART A [facility] [id number] General Hospital [address]Wdp: Number: Repository [id number] (HP) Date:2018-04-05 04/19/2018 Secondary RANULFO E [place] Insurance:AARPPolicy PENELOPEDOB: Community Number: [id number] Hospital [id number] Repository Date:7930-39-94AB [address], [place] [address]IU: 04/19/2018 Tertiary NOT GIVENUNK [place] Insurance:SELF PAY [facility] Number: Effective Repository Date:2018-04-19 04/19/2018 RANULFO E Primary RANULFO E [place] [id number] Insurance:MEDICARE ANSHUTZDOB: [facility] CRISTINA MARIEEVE, PART A [facility] [id number] General Hospital [address]Szd: Number: Repository [id number] (HP) Date:2018-04-05 04/19/2018 Secondary RANULFO E [place] Insurance:AARPPolicy ANSALBANTZDOB: Community Number: [id number] Hospital [id number] Repository Date:0285-09-28NO [address], [place] [address]JM: 04/19/2018 Tertiary NOT GIVENUNK [place] Insurance:SELF PAY [facility] Number: Effective Repository Date:2018-04-19 04/19/2018 RANULFO E Primary RANULFO [place] [id number] Insurance:MEDICARE ANSHUTZDOB: Community CRISTINA RDSHREVE, PART A [facility] [id number] General Hospital [address]Bhi: Number: Repository [id number] (HP) Date:2018-04-05 04/19/2018 Secondary RAN[place]FO E [place] Insurance:AARPPolicy CRITICAL ACCESS HOSPITALTZDOB: Community Number: [id number] Hospital [id number] Repository Date:5880-53-94AZ [address], [place] [address]OC: 04/19/2018 Tertiary NOT GIVENUNK [place] Insurance:SELF PAY [facility] Number: Effective Repository Date:2018-04-19 04/19/2018 RANULFO E Primary RANULFO Crowe [id number] Insurance:MEDICARE ANSHUTZDOB: Community CRISTINA SHAWNHREVE, PART A [facility] [id number] General Hospital [address]Sqg: Number: Repository [id number] (HP) Date:2018-04-05 04/19/2018 Secondary RANULFO E [place] Insurance:AARPPolicy ANSHUTZDOB: Community Number: [id number] Hospital [id number] Repository Date:5583-96-62JT [address], [place] [address]AE: 04/19/2018 Tertiary NOT GIVENUNK [place] Insurance:SELF PAY [facility] Number: Effective Repository Date:2018-04-19 04/05/2018 RANULFO E Primary RANULFO Crowe [id number] Insurance:MEDICARE ANSHUTZDOB: Community CRISTINA RDSHREVE, PART A [facility] [id number] General Hospital [address]Cdv: Number: Repository [id number] (HP) Date:2018-04-05 04/05/2018 Secondary RANULFO E [place] Insurance:AARPPolicy PENELOPEDOB: Community Number: [id number] Hospital [id number] Repository Date:6643-75-97NM [address]TT[place]KLG, [place] [address]LE: 04/05/2018 Tertiary NOT GIVENUNK [place] Insurance:SELF PAY [facility] Number: Effective Repository Date:2018-04-05 04/05/2018 RANULFO E Primary RANULFO E [place] [id number] Insurance:MEDICARE ANSHUTZDOB: Community CRISTINA RDSHREVE, PART A [facility] [id number] General Hospital [address]Hiv: Number: Repository [id number] () Date:2018-04-05 04/05/2018 Secondary RANULFO E [place] Insurance:AARPPolicy VAIBHAVTZDOB: Community Number: [id number] Hospital [id number] Repository Date:0223-42-94GK [address]JDH, [place] [address]ZW: 04/05/2018 Tertiary NOT GIVENUNK [place] Insurance:SELF PAY [facility] Number: Effective Repository Date:2018-04-05 04/05/2018 RANULFO E Primary RANULFO E [place] [id number] Insurance:MEDICARE ANSHUTZDOB: Community CRISTINA SHAWNHREVE, PART A [facility] [id number] General Hospital [address]Qve: Number: Repository [id number] (HP) Date:2018-04-05 04/05/2018 Secondary RANULFO E [place] Insurance:AARPPolicy ANSALBANTZDOB: Community Number: [id number] Hospital [id number] Repository Date:8655-65-93KO [address], [place] [address]LH: 04/05/2018 Tertiary NOT GIVENUNK [place] Insurance:SELF PAY [facility] Number: Effective Repository Date:2018-04-05 04/05/2018 RANULFO Primary RANULFO ANSHUTZDOB: [place] [id number] Insurance:MEDICARE [id number], [facility] [place] [facility] [place] [address]Piy: Number: Repository [id number] (HP) Date:2018-04-04 04/05/2018 Secondary RANULFO MORGANB: [place] Insurance:[facility] [id number] Community Number: Hospital [id number] Repository Date:8419-01-69ZR [facility] [address], [place] [address]IJ: 04/05/2018 Tertiary NOT GIVENUNK [place] Insurance:SELF PAY [facility] Number: Effective Repository Date:2018-04-05 03/07/2018 RANULFO Primary RANULFO NEGRETEB: [place] [id number] Insurance:MEDICARE [id number] Hospital, PART A [facility] [address]Vjf: Number: Repository [id number] (HP) Date:2018-03-07 03/07/2018 Secondary RANULFO MORGANB: [place] Insurance:[facility] [id number] Community Number: [facility] [id number] Repository Date:3213-07-62KX [facility] [address]CCCEPWT, [place] [address]YJ: 03/07/2018 Tertiary NOT GIVENUNK [place] Insurance:SELF PAY [facility] Number: Effective Repository Date:2018-03-07
== END ==
PROVIDERS: Family Provider Family Medicine; PCP Family Medicine; Referring Provider Urology; Visit Provider Urology
DX: R30.0 Dysuria (principal); R35.0 Frequency of micturition
CPT/HCPCS: 87086

== ENCOUNTER → 2018-06-02 14:51 | Outpatient (CLI) | payer MEDICARE, OTHER, SELFPAY ==
[2018-06-02 15:53] LABS: Anion Gap 7 (5-15); BUN 23 mg/dL (7-18); BUN/Creat Ratio 16.4 RATIO (10-20); Calcium,Total 9.5 mg/dL (8.5-10.1); Chloride 107 mmol/L (98-107); EST Glomerular Filtration Rate 52 mL/min (>60); Est Glom Filt Rate - Afr Amer 63 mL/min (>60); Glucose 185 mg/dL (74-106); Potassium 4.6 mmol/L (3.5-5.1); Sodium Level 142 mmol/L (136-145)
[2018-06-02 17:26] LABS: Hemoglobin A1c 8.2 % (4.2-6.3)
--- OUTSIDE RECORDS SUMMARY | 2018-07-28 14:17 | XMS RPT_ITS ---
:1935 Author Organization OHIP Support Name Relationship Address Phone SVEN NEGRETE Unavailable [address] + [place] [address] R Unavailable Unavailable Unavailable ANSHUTZ, DELTHA Unavailable [address] + [place] [address] R Unavailable Unavailable Unavailable ANSHUTZ, DELTHA Unavailable [address] + [place] [address] R Unavailable Unavailable Unavailable ANSHUTZ, DELTHA Unavailable [address] + [place] [address] R Unavailable Unavailable Unavailable ANSHUTZ, DELTHA Unavailable [address] + [place] [address] R Unavailable Unavailable Unavailable ANSHUTZ, DELTHA Unavailable [address] + [place] [address] R Unavailable Unavailable Unavailable ANSHUTZ, DELTHA Unavailable [address] + [place] [address] R Unavailable Unavailable Unavailable ANSHUTZ, DELTHA Unavailable [address] + [place] [address] R Unavailable Unavailable Unavailable ANSHUTZ, DELTHA Unavailable [address] + [place] [address] R Unavailable Unavailable Unavailable ANSHUTZ, DELTHA Unavailable [address] + [place] [address] R Unavailable Unavailable Unavailable ANSHUTZ, DELTHA Unavailable [address] + [place] [address] R Unavailable Unavailable Unavailable R Unavailable Unavailable Unavailable R Unavailable Unavailable Unavailable Care Team Providers Name Role Phone Livan Mcfarland Attending Unavailable Brian Brown Attending Unavailable Mcfarland, Livan Referring Unavailable Brian Brown Attending Unavailable CecilabrShawn escobedoony Referring Unavailable Mcfarland, Livan Primary Care Unavailable BellLorna lombardol Attending Unavailable Shawn Brownony Referring Unavailable Mcfarland, Livan Primary Care Unavailable Cecilabretta, Brian Consulting Unavailable Mcfarland, Livan Primary Care Unavailable Jake, Gómez Admitting Unavailable Kenji, Tremayne Consulting Unavailable Jake, Gómez Attending Unavailable Jake, Gómez Referring Unavailable Joseph, Chao Consulting Unavailable Jake, Gómez Admitting Unavailable Jake, [...] Unavailable Mcfarland, Livan Primary Care Unavailable Bell, [place] Attending Unavailable Shawn Brownony Referring Unavailable Cebul, Chao Attending Unavailable Jake, Gómez Referring Unavailable Kenji, Joe Ellis Attending Unavailable Kneji, Tremayne Referring Unavailable Mcfarland, Livan Primary Care Unavailable Mcfarland, Livan Attending Unavailable Mcfarland, Livan Primary Care Unavailable PROBLEMS PROBLEMS DATE TYPE CONDITION / CODE ATTENDING STATUS SOURCE 06/02/2018 Unknown 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 Hospital / E11.9(ICD-10) Repository 05/11/2018 Unknown M79.89 - Other Cebul, Caho Active [facility] specified soft tissue Community disorders / Hospital M79.89(ICD-10) Repository 04/10/2018 Unknown Z01.818 - Encounter Bell, [place] Active [facility] for other Community preprocedural Hospital examination / Repository Z01.818(ICD-10) 05/04/2018 Unknown 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, Abhilash Active [facility] aortocoronary bypass Community graft / Z95.1(ICD-10) Hospital Repository 05/04/2018 Unknown R94.31 - Abnormal Bell, Abhilash Active [facility] electrocardiogram Community [ECG] [EKG] / Hospital R94.31(ICD-10) Repository 05/04/2018 Unknown I10 - Essential Bell, Abhilash Active [facility] (primary) hypertension Community / I10(ICD-10) Hospital Repository 05/04/2018 Unknown I25.10 - Bell, Abhilash Active [facility] Atherosclerotic heart Community disease of [facility] coronary artery Repository without angina pectoris / I25.10(ICD-10) PROCEDURES PROCEDURES No Procedure Records FoundRESULTS RESULTS BASIC METABOLIC Collected: 06/02/2018 Status: F Source: [place] PROFILE (BMP) 2:52 PM [facility] TYPE CODE TESTS RESULT OUT OF [...] GAP 7 Performed By: #### L500.2500 #### [facility] [address] [place], [address] HEMOGLOBIN A1C Collected: 06/02/2018 Status: F Source: [place] 2:52 PM [facility] TYPE CODE TESTS RESULT OUT OF RANGE REFERENCE UNITS LAB L501.9985 4.2-6.3 % High HGB A1C 8.2 Performed By: #### L501.9985 #### [facility] [address] [place], [address] Observed: 06/01/2018 Status: F Source: [place] CULTURE, URINE 11:45 AM [facility] Urine Culture Culture exhibits no growth. Performed By: #### M100.0650 #### [facility] [address] [place], [address] OPERATIVE REPORT Observed: 05/12/2018 Status: F Source: [place] 12:24 PM [facility] Medical Records Department [address] [place] [address] Operative Report 05/12/18 1221 MR#: [id number] Acct: [id number] Name: RANULFO NEGRETE Rep #: [id number] : 1935 83 From: Joe Phillip MD PCP: Livan Mcfarland MD Status: [facility] Y Location: [place] [address] Report of Operation Date of Procedure: 05/12/18 [...] went in the bladder with a 24 Yi noncontinuous flow resectoscope got inside the bladder [...] DISCHARGE INSTRUCTION Observed: 05/12/2018 Status: F Source: [place] 11:50 AM [facility] Medical Records Department [address] [place] [address] Instructions for Home/Discharge Instructions 05/12/18 1148 MR#: [id number] Acct: [id number] Name: RANULFO NEGRETE Rep #: [id number] : 1935 83 From: Joe Phillip MD PCP: Livan Mcfarland MD Status: REG [facility] Discharge Diet: Light diet - advance as [...] [Toprol Xl] 50 mg PO BID 04/10/18 [place]-3 Fatty Acids/Fish Oil [Fish Oil 1,000 mg [...] 05/12/2018 Status: F Source: [place] 10:39 AM [facility] TYPE CODE TESTS RESULT OUT OF REFERENCE UNITS RANGE LAB L501.080 70-110 mg/dL High BEDSIDE GLU 159 Result Comment: MANAGEMENT OF PATIENT CARE PER NURSING PROTOCOL Performed By: #### L501.080 #### [facility] Point of Care [address] [place] [address] BLADDER TUR Observed: 05/12/2018 Status: F Source: [place] 12:00 AM [facility] Patient: RANULFO NEGRETE : 1935 (83/M) Acct Num: [id number] Phys: Kenji MARES,Joe Ellis Unit Num: [id number] Loc: [facility] [place] Specimen: [id number] Received: 05/12/18 - 1256 Spec Type: TURB [...] summary is in compliance with [employer] [place] Path[employer] (CAP) Cancer Protocols Checklist and [place] Joint Committee on Cancer (AJCC), Staging Manual, [...] cassette. / JOANNE:trina 05/12/18 TC: 0 CPT: 76699 HEADER OPERATION: Cysto, transurethral resection bladder, [employer] PRE-OP DIAGNOSIS: History bladder tumor TISSUE SUBMITTED: Bladder tumor MICROSCOPIC DESCRIPTION Slides are reviewed. MICROSCOPIC DIAGNOSIS Urine bladder tumor, transurethral resection: Urothelial carcinoma. See Comment. AM:trina 05/15/18 Signed Jose Eliz 05/18/18 <signature on file> Performed By: #### PBLB #### [facility] [address] [place] [address]. [place], [address] IMMUNOHISTOCHEMISTRY Observed: 05/12/2018 Status: F Source: [place] 12:00 AM [facility] Patient: RANULFO NEGRETE : 1935 (83/M) Acct Num: [id number] Phys: Kenji MARES,Joe Ellis Unit Num: [id number] Loc: [facility] [place] Specimen: [id number] Received: 05/15/18 - 1206 Spec Type: IMMUNO TISSUES 1 TISSUES: Urinary bladder, NOS SPECIMEN INFORMATION: Tissue Source: Bladder tumor Clinical Info: History bladder tumor Specimen Number: [id number] CPT code: 17604, 27652 x3 METHODOLOGY: Deparaffinized sections of prefer/formalin-fixed tissue [...] developed and their performance characteristics determined by [facility]. They may not have been cleared or approved by the U.S. Food and Drug Administration. The FDA has determined that such clearance or approval is not necessary. 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 This case was reviewed with Dr. Valdez who concurs with the above diagnosis. AM:homer 05/16/18 PHYSICIAN AND INSTITUTION [place] [address] Signed Jose [facility] 05/18/18 <signature on file> Performed By: #### PIMM #### [facility] [address] [place] [address]. [place], [place], [id number] CRP Collected: 04/26/2018 Status: F Source: [place] 9:52 AM [facility] TYPE CODE TESTS RESULT OUT OF RANGE REFERENCE UNITS LAB L501.6710 0.0-3.0 mg/L Normal < 2.90 C-REACTIVE PROT Result Comment: C-Reactive Protein (CRP) provides useful information for the diagnosis, therapy and monitoring of inflammatory processes and associated diseases. For the evaluation of Relative Risk for Cardiovascular Disease, a High Sensitivity CRP (HSCRP) should be ordered. Performed By: #### L501.6710 #### [facility] [address] [place] [address], [id number] CBC W/DIFF, AUTOMATED Collected: 04/26/2018 Status: C Source: [place] 9:52 AM [facility] TYPE CODE TESTS RESULT OUT OF [...] and absolute lymphocytosis. Macrocytosis. Clinical correlation necessary. oCnnor Valdez M.D. 04/27/18 AMENDED REPORT 04/27/18 1327 PATH REV previously reported as: November foll Performed By: #### L100.0100 #### [facility] [address] [place], [address] DISCHARGE SUMMARY Observed: 04/20/2018 Status: F Source: [place] 4:08 PM [facility] Medical Records Department [address] [place] [address] Discharge Summary 04/20/18 1050 MR#: [id number] Acct: [id number] Name: RANULFO NEGRETE Rep #: [id number] : 1935 82 From: Gómez Joseph MD PCP: Livan Mcfarland MD Status: DIS IN Y Location: [place] [address] Discharge Date and Diagnosis Date of Admission: [...] 3 tumor resection in October 2017 in [place] was scheduled for robotic assisted laparoscopic right [...] and dribbling of urine. Recently moved to [facility]. He saw Dr. Phillip on April 03, 2018. Denies fever, chills, URI symptoms, shortness of breath, chest pressure or palpitation. Right lower leg is little red but no tenderness or induration. 1. Leukocytosis with recent onset lower urinary tract symptoms suspicion of possible UTI history of bladder cancer and multiple TURBT: The patient was admitted on regular [facility] floor. Venous Doppler of lower extremities [...] status post femoropopliteal and total occlusion of [place] and graft: Continue aspirin, Plavix and cilostazol. [...] than left leg probably secondary to chronic [place] SFA and femoropopliteal graft 100% occlusion with [...] [Toprol Xl] 50 mg PO BID 04/10/18 [place]-3 Fatty Acids/Fish Oil [Fish Oil 1,000 mg [...] applicable Code Visit Inpatient E AND M: 23946 Disch Hosp 04/20/18 1608 <Electronically signed by Gómez Joseph MD> Date Gómez Joseph MD Cosigner Signature (if applicable): Date CC: Livan Mcfarland MD; Gómez Joseph MD Signed CONSULTATION Observed: 04/20/2018 Status: F Source: [place] 11:13 AM [facility] Medical Records Department [address] [place] [address] Consultation 04/20/18 1108 MR#: [id number] Acct: [id number] Name: RANULFO NEGRETE Rep #: [id number] : 1935 82 From: Chao Ruiz MD PCP: Livan Mcfarland MD Status: ADM IN Y Location[place] [facility] [id number] Problem List (1) Leukocytosis Status: Acute Reason [...] new meds, no recent abx. Moved from [place], [place] in December. Does not recall ever [...] obtaining past cbc results from PCP in [place] and from [facility]. D/w Dr. Joseph, thank you for this consultation. 04/20/18 1113 <Electronically signed by Chao Ruiz MD> Date Chao Ruiz MD Cosigner Signature (if applicable): Date CC: Joe Phillip MD; Livan Mcfarland MD; Gómez Joseph MD; Chao Ruiz MD Signed DISCHARGE INSTRUCTION Observed: 04/20/2018 Status: F Source: [place] 10:50 AM [facility] Medical Records Department [address] [place] [address] Instructions for Home/Discharge Instructions 04/20/18 1048 MR#: [id number] Acct: [id number] Name: RANULFO NEGRETE Rep #: [id number] : 1935 82 From: Gómez Joseph MD [...] [Toprol Xl] 50 mg PO BID 04/10/18 [place]-3 Fatty Acids/Fish Oil [Fish Oil 1,000 mg [...] AND PHYSICAL Observed: 04/20/2018 Status: F Source: [place] EXAM 8:24 AM [facility] Medical Records Department [address] [place] [address] History and Physical 04/19/18 1349 MR#: [id number] Acct: [id number] Name: RANULFO NEGRETE Rep #: [id number] : 1935 82 From: Gómez Joseph MD PCP: Livan Mcfarland MD Status: ADM IN Location: [address] Problem List (1) Leukocytosis Status: Acute [...] 3 tumor resection in October 2017 in [place] was scheduled for robotic assisted laparoscopic right [...] for a few weeks. Recently moved to [facility] and does not have a urologist was supposed to see Dr. Phillip next week. Denies fever, chills, URI symptoms, shortness of breath, chest pressure or palpitation. Sitting did not had major chest pain/[place] or cardiac problem since bypass surgery in 2004. He also had right femoropopliteal bypass surgery. He had recent angiogram which shows 100% occlusion of [place] SFA and bypass but he has good [...] 3 tumor resection in October 2017 in [place] was scheduled for robotic assisted laparoscopic right [...] for a few weeks. Recently moved to [facility]. He saw Dr. Phillip on April 03, 2018. Denies fever, chills, URI symptoms, shortness of breath, chest pressure or palpitation. The patient did not had major chest pain/[place] or cardiac problem since bypass surgery in 2007. He also had right femoropopliteal bypass surgery. He had recent angiogram which shows 100% occlusion of [place] SFA and bypass but he has good [...] status post femoropopliteal and total occlusion of [place] and graft: Continue aspirin, Plavix and cilostazol. [...] done. Code Visit Inpatient E AND M: 74222 Init Hosp L3 04/20/18823 <Electronically signed by Gómez Joseph MD> Date Gómez Joseph MD Cosigner Signature: Date (if applicable) CC: Livan Mcfarland MD; Gómez Joseph MD Signed BEDSIDE GLUCOSE Collected: 04/20/2018 Status: F Source: [place] 6:01 AM [facility] [place] TYPE CODE TESTS RESULT OUT OF REFERENCE UNITS RANGE LAB L501.080 70-110 mg/dL High BEDSIDE GLU 165 Result Comment: MANAGEMENT OF PATIENT CARE PER NURSING PROTOCOL Performed By: #### L501.080 #### [facility] Point of Care [address] [place] [address] [place] [address] CBC W/DIFF, AUTOMATED Collected: 04/20/2018 Status: F Source: [place] 5:29 AM [facility] TYPE CODE TESTS RESULT OUT OF [...] LYMPH 3+ Performed By: #### L100.0100 #### [facility] [address] [facility]. [place], [place], [address] BEDSIDE GLUCOSE Collected: 04/19/2018 Status: F Source: [place] 9:43 PM [facility] [place] TYPE CODE TESTS RESULT OUT OF REFERENCE UNITS RANGE LAB L501.080 70-110 mg/dL High BEDSIDE GLU 162 Result Comment: MANAGEMENT OF PATIENT CARE PER NURSING PROTOCOL Performed By: #### L501.080 #### [facility] Point of Care [address] [facility] [place] [address] URINALYSIS, COMPLETE Collected: 04/19/2018 Status: C Source: [place] 8:35 PM [facility] Order Comment: How was Urine Obtained? [...] AMORPHOUS URATE Performed By: #### L400.0001 #### [facility] [address] [facility] [place], [address] VENOUS DUPLEX LOWER Observed: 04/19/2018 Status: F Source: [place] EXTREMITY 4:53 PM [facility] Cardiovascular Services [address] [place] [place] [address] Venous Duplex US - Jaylan Extrem 04/19/18 1432 MR#: [id number] Acct: [id number] Name: RANULFO NEGRETE Rep #: [id number] : 1935 82 From: Chao Palomino MD Attending Dr: Gómez Joseph MD Status: ADM IN Ordering Dr: Gómez Joseph MD Date: 04/19/18 Location: [facility] Sex: M C Admitted: 04/19/18 Reason For [...] Physician: Livan Mcfarland Performed By: Silviano PEDERSON [facility] Priya and Student 04/19/181652 Date Chao Palomino MD CC: Livan Mcfarland MD; Gómez Joseph MD Date Dictated: 04/19/18 1432 Date Transcribed: 04/19/181652 Electrician [employer]: Signed BEDSIDE GLUCOSE Collected: 04/19/2018 Status: F Source: [place] 4:42 PM [facility] TYPE CODE TESTS RESULT OUT OF REFERENCE UNITS RANGE LAB L501.080 70-110 mg/dL High BEDSIDE GLU 135 Result Comment: MANAGEMENT OF PATIENT CARE PER NURSING PROTOCOL Performed By: #### L501.080 #### [facility] [place] [facility] Point of Care [address] [place] [address] OPERATIVE REPORT Observed: 04/19/2018 Status: F Source: [place] 4:20 PM [facility] Medical Records Department [address] [place] [address] Operative Report 04/19/18 1618 MR#: [id number] Acct: [id number] Name: RANULFO NEGRETE Rep #: [id number] : 1935 82 From: Joe Phillip MD PCP: Livan Mcfarland MD Status: ADM IN Location: [place] [address] Report of Operation Date of Procedure: 04/19/18 [...] Signed CONSULTATION Observed: 04/19/2018 Status: F Source: [place] 4:18 PM [facility] Medical Records Department [address] [place] [address] Consultation 04/19/18 1616 MR#: [id number] Acct: [id number] Name: RANULFO NEGRETE Rep #: [id number] : 1935 82 From: Joe Phillip MD PCP: Livan Mcfarland MD Status: ADM IN Location: [place] [id number] Reason for Consult Date of Consultation: 04/19/18 [...] F Source: [place] PROFILE (BMP) 3:00 PM [facility] TYPE CODE TESTS RESULT OUT OF [...] 4 Performed By: #### L500.2500, L501.6710 #### [facility] [address] [place], [place], [address] CRP Collected: 04/19/2018 Status: F Source: [place] 3:00 PM [facility] TYPE CODE TESTS RESULT OUT OF RANGE REFERENCE UNITS LAB L501.6710 0.0-3.0 mg/L High 5.87 C-REACTIVE PROT Result Comment: C-Reactive Protein (CRP) provides useful information for the diagnosis, therapy and monitoring of inflammatory processes and associated diseases. For the evaluation of Relative Risk for Cardiovascular Disease, a High Sensitivity CRP (HSCRP) should be ordered. Performed By: #### L500.2500, L501.6710 #### [facility] [address] [place], [address] Observed: 04/19/2018 Status: F Source: [place] CULTURE, BLOOD (WB) 3:00 PM [facility] BC No growth in 5 days. Performed By: #### M200.1000 #### [facility] [address] [place], [address] CHEST PA AND LATERAL Observed: 04/19/2018 Status: F Source: [place] 2:19 PM [facility] Imaging Services [address] [place] [address] Chest PA and Lateral MR#: [id number] Acct: [id number] Name: RANULFO NEGRETE Rep #: [id number] : 1935 M 82 From: Maycol Diaz MD PCP: Livan Mcfarland MD Status: ADM IN Study: Chest PA and Lateral Date of Exam: 04/19/18 Exam# [id number] Ordering Dr: Gómez Joseph MD STUDY: X-RAY [...] CC: Livan Mcfarland MD; Gómez Joseph MD Electrician Underground: Signed KIDNEY AND BLADDER Observed: 04/19/2018 Status: F Source: [place] 2:06 PM [facility] Imaging Services [address] [place] [address] Kidney and Bladder MR#: [id number] Acct: [id number] Name: RANULFO NEGRETE Rep #: [id number] : 1935 M 82 From: Maycol Diaz MD PCP: Livan Mcfarland MD Status: ADM IN Study: Kidney and Bladder Date of Exam: 04/19/18 Exam# [id number] Ordering Dr: Gómez Joseph MD STUDY: RENAL [...] CC: Livan Mcfarland MD; Gómez Joseph MD Electrician Underground: Signed Observed: 04/19/2018 Status: F Source: [place] CULTURE, URINE 2:06 PM [facility] Comments: use urine sent by Urine Culture Culture exhibits no growth. Performed By: #### M100.0650 #### [facility] [address] [place], [place], [address] BEDSIDE GLUCOSE Collected: 04/19/2018 Status: F Source: [place] 10:42 AM [facility] TYPE CODE TESTS RESULT OUT OF REFERENCE UNITS RANGE LAB L501.080 70-110 mg/dL High BEDSIDE GLU 144 Result Comment: MANAGEMENT OF PATIENT CARE PER NURSING PROTOCOL Performed By: #### L501.080 #### [facility] Point of Care [address] [place] [address] CBC-COMPLETE BLOOD CNT Collected: 04/19/2018 Status: F Source: [place] NO DIFF 10:16 AM [facility] TYPE CODE TESTS RESULT OUT OF [...] MPV 10.5 Performed By: #### L100.0500 #### [facility] [address] [place], [address] 12 LEAD ELECTROCARDIOGRAM Observed: 04/10/2018 Status: F Source: [place] 3:40 PM [facility] Cardiovascular Services [address] [place] [address] 12 Lead EKG 04/05/18 1109 MR#: [id number] Acct: [id number] Name: RANULFO NEGRETE Rep #: [id number] : 1935 82 From: Abhilash Luu MD Attending Dr: Brian Brown MD Status: REG CLI Ordering Dr: Brian Brown MD Date: 04/05/18 Location: [facility] Sex: M C Admitted: Test Reason : [...] ECG Confirmed by BELL MARES, ABHILASH ([id number]), online content editor TAM ARCHULETA ([id number]) on 04/10/2018 3:39:48 PM Referred By: Brian Brown Confirmed By:ABHILASH LUU MD 04/10/18 1539 Date Abhilash Luu MD CC: Brian Brown MD; Livan Mcfarland MD Signed SURGERY VISIT REPORT Observed: 04/06/2018 Status: F Source: [place] 10:44 AM [facility] [address] [place] [address] OFFICE VISIT Date of Service: 04/05/18 MR#: [id number] Acct: [id number] Name: RANULFO NEGRETE Rep #: [id number] : 1935 Provider: Brian Brown MD Age/Sex: 82/M Location: [facility] Status: Signed with Addenda ADDENDUM by Brian [...] inguinal hernia repair. Brian Brown MD Pager: [facility] [address] [place] [address], [address] [place] [address] Office: Intake Allergies No Known Allergies Allergy [...] spent in counseling. 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 He does say that his blood [...] spent in counseling. Brian Brown MD Pager: [facility] [address] [place] [address], [address] [place] [address] Office: Orders Orders: Coding Level of Care Code Off vis,new,level 4 Diagnoses Right inguinal hernia K40.90 Time Spent (min) 45 04/05/18 1148 <Electronically signed by Brian Brown MD> Date Brian Brown MD Cosigner Signature: Date (if applicable) CC: Livan Mcfarland MD HEMOGLOBIN A1C Collected: 03/07/2018 Status: F Source: [place] 8:14 AM [facility] [place] CODE TESTS RESULT OUT OF RANGE REFERENCE UNITS LAB L501.9985 4.2-6.3 % High HGB A1C 7.3 Performed By: #### L501.9985 #### [facility] [address] [place], [address] BASIC METABOLIC Collected: 03/07/2018 Status: F Source: [place] PROFILE (BMP) 8:14 AM [facility] [place] CODE TESTS RESULT OUT OF [...] Performed By: #### L500.2500, L500.3400, L500.4100 #### [facility] [address] [place], [address] LIVER PROFILE Collected: 03/07/2018 Status: F Source: [place] 8:14 AM [facility] [place] CODE TESTS RESULT OUT OF [...] Performed By: #### L500.2500, L500.3400, L500.4100 #### [facility] [address] [place], [place], [address] LIPID PROFILE Collected: 03/07/2018 Status: F Source: [place] 8:14 AM [facility] [place] CODE TESTS RESULT OUT OF [...] Performed By: #### L500.2500, L500.3400, L500.4100 #### [facility] [address] [place], [place], [address] ALLERGIES ALLERGIES DATE TYPE / CODE NAME / CODE REACTION SEVERITY SOURCE 05/08/2018 Drug No Known Unknown [facility] Allergy/4160 Allergies/F00 Hospital 02224(SNOMED 7246486(RXNOR Repository CT) M) ENCOUNTERS ENCOUNTERS ADMIT/DISCHARGE ACCOUNT ADMITTING ENCOUNTER LOCATION SOURCE NUMBER CLASS 06/02/2018 [id number] [place] [address] [facility] ing:MFPLAB Repository 06/01/2018 [id number] Ambulatory [place] 0 [facility] Hospital ing:LABSPEC Repository 05/12/2018/ [id number] Ambulatory [place] [address] [facility] ing:SDCRoom: Repository AC16 04/26/2018 [id number] Ambulatory [place] 4 [facility] Hospital ing:MFPLAB Repository 04/19/2018/ [id number] Jake, Inpatient [place] 8 9 [place] Encounter [facility] ing:ZH1Vfms: Repository [id number]: 1 04/19/2018 [id number] Jake, Ambulatory BMSBuilding:B [place] 7 [place] MS.[facility] Repository 04/19/2018 [id number] [facility], Ambulatory BMSBuilding:B [place] 3 [place] MS.[facility] Repository 04/19/2018/ [id number] Ambulatory BMSBuilding:B [place] 8 1 MS.[facility] Repository 04/05/2018 [id number] Ambulatory BMSBuilding:B [place] 9 MS.[facility] Repository 04/05/2018 [id number] Ambulatory [place] 9 [facility] Hospital ing:CVS Repository 04/05/2018 [id number] Ambulatory BMSBuilding:W [place] 4 [facility] Repository 04/05/2018/ [id number] Ambulatory BMSBuilding:B [place] 8 4 [facility] Repository 03/07/2018 [id number] Ambulatory [place] 9 [facility] Hospital ing:MFPLAB Repository PAYERS PAYERS ENCOUNTER GUARANTOR PAYER SUBSCRIBER SOURCE 06/02/2018 RANULFO Tadeo Primary RANULFO [id number] Insurance:MEDICARE EDDIEB: [facility] ASHER, PART A BPolicy [id number] Medical Center [address]Gqf: Number: Repository [id number] (HP) Date:2018-06-02 06/02/2018 Secondary RANULFO E [place] Insurance:AARPPolicy ANSHUTZDOB: Community Number: [id number] Hospital [id number] Repository Date:5446-40-64[address], [place] [address]CC: 06/02/2018 Tertiary NOT GIVENUNK [place] Insurance:SELF PAY [facility] Number: Effective Repository Date:2018-06-02 06/01/2018 RANULFO E Primary RANULFO [place] [id number] Insurance:MEDICARE ANSHUTZDOB: Community CRISTINA RDSHREVE, PART A [facility] [id number] Medical Center [address]Dxe: Number: Repository [id number] (HP) Date:2018-06-01 06/01/2018 Secondary RAN[place]FO E [place] Insurance:AARPPolicy ANSALBANTZDOB: Community Number: [id number] Hospital [id number] Repository Date:4434-95-76[address], [place] [address]VJ: 06/01/2018 Tertiary NOT GIVENUNK [place] Insurance:SELF PAY [facility] Number: Effective Repository Date:2018-06-01 05/12/2018 RANULFO E Primary RANULFO [place]we [id number] Insurance:MEDICARE ANSHUTZDOB: Community CRISTINA SHAWNHREVE, PART A [facility] [id number] Medical Center [address]Isw: Number: Repository [id number] (HP) Date:2018-04-24 05/12/2018 Secondary RANULFO E [place] Insurance:AARPPolicy ANSHUTZDOB: Community Number: [id number] Hospital [id number] Repository Date:1516-11-27PY [address], [place] [address]JZ: 05/12/2018 Tertiary NOT GIVENUNK [place] Insurance:SELF PAY [facility]: Effective Repository Date:2018-04-24 04/26/2018 RANULFO E Primary RANULFO [place] [id number] Insurance:MEDICARE ANSHUTZDOB: Community CRISTINA RDSHREVE, PART A olic [id number] Medical Center [address]Vzx: Number: Repository [id number] (HP) Date:2018-04-26 04/26/2018 Secondary RANULOF E [place] Insurance:AARPPolicy VAIBHAVTZDOB: Community Number: [id number] Hospital [id number] Repository Date:6539-66-65TZ [address], [place] [address]DT: 04/26/2018 Tertiary NOT GIVENUNK [place] Insurance:SELF PAY [facility] Number: Effective Repository Date:2018-04-26 04/19/2018 RANULFO E Primary RANULFO E [place] [id number] Insurance:MEDICARE ANSHUTZDOB: [facility] CRISTINA MARIEEVE, PART A [facility] [id number] Medical Center [address]Pfe: Number: Repository [id number] (HP) Date:2018-04-05 04/19/2018 Secondary RANULFO E [place] Insurance:AARPPolicy PENELOPEDOB: Community Number: [id number] Hospital [id number] Repository Date:5028-16-36KG [address], [place] [address]FW: 04/19/2018 Tertiary NOT GIVENUNK [place] Insurance:SELF PAY [facility] Number: Effective Repository Date:2018-04-19 04/19/2018 RANULFO E Primary RANULFO E [place] [id number] Insurance:MEDICARE ANSHUTZDOB: [facility] CRISTINA MARIEEVE, PART A [facility] [id number] Medical Center [address]Isf: Number: Repository [id number] (HP) Date:2018-04-05 04/19/2018 Secondary RANULFO E [place] Insurance:AARPPolicy ANSALBANTZDOB: Community Number: [id number] Hospital [id number] Repository Date:7630-27-12KS [address], [place] [address]TK: 04/19/2018 Tertiary NOT GIVENUNK [place] Insurance:SELF PAY [facility] Number: Effective Repository Date:2018-04-19 04/19/2018 RANULFO E Primary RANULFO [place] [id number] Insurance:MEDICARE ANSHUTZDOB: Community CRISTINA RDSHREVE, PART A [facility] [id number] Medical Center [address]Wwy: Number: Repository [id number] (HP) Date:2018-04-05 04/19/2018 Secondary RANULFO E [place] Insurance:AARPPolicy [facility] Number: [id number] Hospital [id number] Repository Date:7816-24-26MI [address], [place] [address]GV: 04/19/2018 Tertiary NOT GIVENUNK [place] Insurance:SELF PAY [facility] Number: Effective Repository Date:2018-04-19 04/19/2018 RANULFO E Primary RANULFO [place] [id number] Insurance:MEDICARE ANSHUTZDOB: Community CRISTINA SHAWNHREVE, PART A [facility] [id number] Medical Center [address]Hvr: Number: Repository [id number] (HP) Date:2018-04-05 04/19/2018 Secondary RANULFO E [place] Insurance:AARPPolicy ANSHUTZDOB: Community Number: [id number] Hospital [id number] Repository Date:2085-49-42QX [address], [place] [address]JM: 04/19/2018 Tertiary NOT GIVENUNK [place] Insurance:SELF PAY [facility] Number: Effective Repository Date:2018-04-19 04/05/2018 RANULFO E Primary RANULFO [place] [id number] Insurance:MEDICARE ANSHUTZDOB: Community CRISTINA RDSHREVE, PART A [facility] [id number] Medical Center [address]Sic: Number: Repository [id number] (HP) Date:2018-04-05 04/05/2018 Secondary RANULFO E [place] Insurance:AARPPolicy PENELOPEDOB: Community Number: [id number] Hospital [id number] Repository Date:4634-15-57VB [address], [place] [address]HQ: 04/05/2018 Tertiary NOT GIVENUNK [place] Insurance:SELF PAY [facility] Number: Effective Repository Date:2018-04-05 04/05/2018 RANULFO E Primary RANULFO E [place] [id number] Insurance:MEDICARE ANSHUTZDOB: Community CRISTINA RDSHREVE, PART A [facility] [id number] Medical Center [address]Itt: Number: Repository [id number] () Date:2018-04-05 04/05/2018 Secondary RANULFO E [place] Insurance:AARPPolicy VAIBHAVTZDOB: Community Number: [id number] Hospital [id number] Repository Date:4106-08-46ZX [address], [place] [address]BN: 04/05/2018 Tertiary NOT GIVENUNK [place] Insurance:SELF PAY [facility] Number: Effective Repository Date:2018-04-05 04/05/2018 RANULFO E Primary RANULFO E [place] [id number] Insurance:MEDICARE ANSHUTZDOB: Community CRISTINA SHAWNHREVE, PART A [facility] [id number] Medical Center [address]Gpc: Number: Repository [id number] (HP) Date:2018-04-05 04/05/2018 Secondary RANULFO E [place] Insurance:AARPPolicy ANSALBANTZDOB: Community Number: [id number] Hospital [id number] Repository Date:6727-14-16WX [address], [place] [address]OF: 04/05/2018 Tertiary NOT GIVENUNK [place] Insurance:SELF PAY [facility] Number: Effective Repository Date:2018-04-05 04/05/2018 RANULFO Primary RANULFO ANSHUTZDOB: [place] [id number] Insurance:MEDICARE [id number] [place] [address]Ukk: Number: Repository [id number] (HP) Date:2018-04-04 04/05/2018 Secondary RANULFO MORGANB: [place] Insurance:[facility] [id number] Community Number: Hospital [id number] Repository Date:6267-26-82RV [facility] [address], [place] [address]YB: 04/05/2018 Tertiary NOT GIVENUNK [place] Insurance:SELF PAY [facility] Number: Effective Repository Date:2018-04-05 03/07/2018 RANULFO Primary RANULFO NEGRETEB: [place] [id number] Insurance:MEDICARE [id number], [facility] A [facility] [address]Rfv: Number: Repository [id number] (HP) Date:2018-03-07 03/07/2018 Secondary RANULFO MORGANB: [place] Insurance:[facility] [id number] Community Number: [facility] [id number] Repository Date:8000-66-38AA [facility] [place] [address]WZ: 03/07/2018 Tertiary NOT GIVENUNK [place] Insurance:SELF PAY [facility] Number: Effective Repository Date:2018-03-07
== END ==
PROVIDERS: Family Provider Family Medicine; PCP Family Medicine; Visit Provider Family Medicine
DX: E11.9 Type 2 diabetes mellitus without complications (principal)
CPT/HCPCS: 36415; 80048; 83036

== ENCOUNTER → 2018-09-25 13:25 | Outpatient (CLI) | payer MEDICARE, OTHER, SELFPAY ==
[2018-09-19 09:42] VITALS: BMI 30.5
--- NOTE | 2018-09-25 13:27 | CT_ITS ---
STUDY: CT SOFT TISSUE NECK WITH CONTRAST REASON FOR EXAM: Male, 83 years old. Lymphocytosis. Bladder carcinoma. Tumor removed. RADIATION DOSAGE (If Supplied By Facility): CTDIvol = ( 26.23 ) mGy, DLP = ( 3518.19 ) mGycm TECHNIQUE: The patient was scanned in a multi-detector CT scanner. High resolution transaxial imaging was performed following intravenous administration of 75 IV Isovue 300. Sagittal and coronal images were reconstructed. Individualized dose optimization techniques were used for this CT. COMPARISON: None. FINDINGS: Normal bilateral parotid glands. Normal bilateral icu nurse spaces. Normal bilateral parapharyngeal spaces. Normal bilateral carotid spaces but there is suspicious high grade stenosis of the right internal carotid artery origin due to large chunks of calcified plaques mixed with noncalcified plaques. Normal bilateral sublingual and submandibular glands and spaces. Normal visualized nasopharynx. Normal retropharyngeal space. Normal perivertebral space. Normal visualized bilateral faucial tonsils. The visualized tongue, tongue base and oropharynx are normal. The visualized cervical lymph nodes (levels I-) are within normal size limits, and maintain normal morphology. There is no demonstrated solid or cystic mass lesion. There is no abnormal contrast enhancement. Normal epiglottis, bilateral vallecula and hypopharynx. The pre-epiglottic and paraglottic adipose spaces are normal. Normal visualized bilateral piriform sinuses, aryepiglottic folds, vocal cords, and arytenoid-cricoid articulations. Normal subglottic trachea. Large mass with irregular central hypodensity in the left thyroid lobe and smaller mass with irregular hypodensity in the right thyroid lobe. Calcified granuloma in the right upper lobe. Normal pulmonary apices. Mucosal thickening with air-fluid level in the left maxillary sinus. Moderate C3-C4 disc space height narrowing with mild degenerative retrolisthesis of C3 on C4. Small C3-C4 posterior midline disc protrusion with calcification of the protruding annulus. Prominent anterior marginal spurs at C5-C6 and C6-C7 disc space levels. Moderate C6-C7 disc space height narrowing with mild degenerative retrolisthesis of C6 on C7. Moderately pronounced stenosis of the left C6-C7 intervertebral neural foramen. CT/Soft Tissue Neck WITH Contrast IMPRESSION: 1. Multiple small solid lymph nodes in the suprahyoid neck and infrahyoid neck. They are presumably benign reactive nodes. 2. Large mass in the left thyroid lobe and small mass in the right thyroid lobe. They are feasible for ultrasound-guided core biopsy. 3. Acute left maxillary sinusitis. 4. Probable high-grade stenosis of the right internal carotid artery origin due to calcified plaques and noncalcified plaques. CTA neck will be very helpful for further evaluation. 5. Moderate C6-C7 disc space height narrowing with mild degenerative retrolisthesis of C6 on C7 and moderately pronounced stenosis of the left C6-C7 intervertebral neural foramen. 6. Moderate C3-C4 disc space height narrowing with mild degenerative retrolisthesis of C3 on C4, small C3-C4 posterior midline disc protrusion with calcification of the protruding annulus. 7. Prominent anterior marginal spurs at C5-C6 and C6-C7 disc space levels. Electronically Signed: Paul Holly MD at 9:50 EDT , Service support ,
--- NOTE | 2018-09-25 13:27 | CT_ITS ---
STUDY: CT ABDOMEN AND PELVIS WITH CONTRAST REASON FOR EXAM: Male, 83 years old. Lymphocytes ptosis. RADIATION DOSAGE (If Supplied By Facility): CTDIvol = ( 26.23 ) mGy, DLP = ( 3518.19 ) mGycm TECHNIQUE: Transaxial images were obtained from the dome of the diaphragm to the symphysis pubis with oral contrast. Isovue 300 100 IV/Oral was administered. Sagittal and coronal images were reconstructed. Individualized dose optimization techniques were used for this CT. COMPARISON: None. FINDINGS: The visualized lung bases are unremarkable. There are coronary artery calcifications present. Normal liver. Normal gallbladder and extrahepatic biliary system. There are multiple benign calcified granulomata of the spleen. Normal pancreas. Normal bilateral adrenal glands. Normal right kidney. There is a 4.9 x 7.1 cm left renal cyst Normal visualized stomach. Normal small intestine. Normal colon. The patient status post appendectomy. There is diffuse atherosclerotic calcification of the abdominal aorta, without a demonstrated aneurysm. Normal inferior vena cava. There is retroperitoneal lymphadenopathy with enlarged nodes greater than 10-15mm in the short axis. There are pathologically enlarged pelvic lymph nodes including a right 1.8 cm short axis external iliac lymph node. There the bladder is incompletely distended. There is bladder wall thickening. There is a right inguinal hernia containing segments of small bowel with no associated obstruction. There are postsurgical changes within the right inguinal region. There are diffuse degenerative changes of the visualized lumbar spine. There is a well-circumscribed round radiolucency within the L4 vertebra with sclerotic margins which may reflect underlying bone cyst or atypical hemangioma. CT/Abdomen/Pelvis WITH Contrast IMPRESSION: Pathologically enlarged retroperitoneal and pelvic lymph nodes concerning for an underlying neoplastic process. Atherosclerosis. Evidence of prior granulomatous disease. Bladder wall thickening may be partially secondary to its incompletely distended state however cannot exclude a history of cystitis Electronically Signed: Eunice Salinas MD at 8:13 EDT Tel , Service support ,
--- NOTE | 2018-09-25 13:27 | CT_ITS ---
STUDY: CT CHEST WITH CONTRAST REASON FOR EXAM: Male, 83 years old. Lymphocytosis RADIATION DOSAGE (If Supplied By Facility): CTDIvol = ( 26.23 ) mGy, DLP = ( 3518.19 ) mGycm TECHNIQUE: Transaxial imaging was performed following intravenous administration of Isovue 300 100 IV. Individualized dose optimization techniques were used for this CT. COMPARISON: None. FINDINGS: Atelectasis/scarring within the lungs. 2 mm left upper lobe pulmonary nodule. Emphysematous changes. No focal consolidation. Calcified 9 mm right upper lobe pulmonary nodule likely granuloma. 3 mm right lower lobe pulmonary nodule. The heart is within normal limits in size. No significant pericardial effusion. Coronary artery calcifications. Mitral and aortic annular valve calcifications. Status post median sternotomy. There is atherosclerotic disease of the aorta. No aneurysm or dissection is seen. Limited evaluation for pulmonary embolism due to bolus timing. There is no embolism seen within the main pulmonary artery or lobar pulmonary arteries. The thyroid on the left is enlarged and heterogeneous measuring up to 5 cm x 6.8 cm. Extends superiorly outside the field of view. Recommend nonemergent thyroid ultrasound. Multiple bilateral axillary lymph nodes measuring up to 1.8 cm in short axis. Mediastinal hilar lymph nodes measuring up to 1.2 cm in short axis. There are multi-level degenerative changes of the thoracic spine. Calcifications within the spleen likely prior granulomatous disease. CT/Chest WITH Contrast IMPRESSION: Heterogeneously enlarged left thyroid recommend nonemergent thyroid ultrasound. Enlarged axillary and mediastinal/hilar lymph nodes. Nonspecific. This could be from metastatic disease, lymphoma or reactive nodes. No prior studies available for comparison. No aortic aneurysm or dissection. Emphysematous changes within the lungs. Small pulmonary nodules are present. Recommend comparison to prior studies versus 12 month follow-up CT scan of the chest. Evidence of prior granulomatous disease. Other findings as discussed above. Electronically Signed: Devan Velasco, at 4:47 EDT Tel , Service support ,
== END ==
PROVIDERS: Family Provider Family Medicine; PCP Family Medicine; Referring Provider Internal Medicine Medical Oncology; Visit Provider Internal Medicine Medical Oncology
DX: D72.820 Lymphocytosis (symptomatic) (principal); R59.0 Localized enlarged lymph nodes
CPT/HCPCS: 70491; 71260; 74177; Q9967

== ENCOUNTER → 2018-10-06 09:57 | Outpatient (CLI) | payer MEDICARE, OTHER, SELFPAY ==
[2018-08-31 13:01] VITALS: BMI 29.0
[2018-09-12 13:41] LABS: Hemoglobin 14.2 g/dl (13.0-16.5); Mean Corp Hgb Conc 31.6 g/gl (32-36); Mean Corpuscular Hgb 30.9 pg (27.0-32.0); Mean Corpuscular Volume 97.8 fL (80-94); Mean Platelet Vol. 10.6 fl (6.2-12.0); Platelet Count 194 K/mm3 (150-450); RBC Distribution Width CV 14.3 % (11.6-14.6); Scan Indicated on CBC? Y/N NO; White Blood Count 25.1 K/mm3 (4.4-11.0)
[2018-09-12 14:02] LABS: Anion Gap 6 (5-15); BUN 21 mg/dL (7-18); BUN/Creat Ratio 15.9 RATIO (10-20); Calcium,Total 8.8 mg/dL (8.5-10.1); Chloride 105 mmol/L (98-107); Creatinine, Serum 1.32 mg/dL (0.70-1.30); EST Glomerular Filtration Rate 55 mL/min (>60); Est Glom Filt Rate - Afr Amer 67 mL/min (>60); Glucose 187 mg/dL (74-106); Potassium 4.5 mmol/L (3.5-5.1); Sodium Level 138 mmol/L (136-145)
[2018-10-02 13:53] VITALS: BMI 30.5
== END ==
PROVIDERS: Family Provider Family Medicine; PCP Family Medicine; Referring Provider Surgery; Visit Provider Surgery
DX: Z01.818 Encounter for other preprocedural examination (principal); Z79.899 Other long term (current) drug therapy
CPT/HCPCS: 36415; 80048; 83036; 85027

== ENCOUNTER 2018-11-01 05:49 | Day surgery (SDC) | payer MEDICARE, OTHER, SELFPAY ==
[2018-10-26 13:45] VITALS: BMI 30.7
[2018-11-01] VITALS (7 sets, daily range): BP systolic 128–144; BP diastolic 61–85; PULSE 60–68; RESP 14–16; TEMP 35.9–36.9; O2SAT 91–100; BMI 31.6
--- NOTE | 2018-11-01 | IMM_PTH ---
PATIENT: RANULFO NEGRETE [place] [facility] [place][id number] AGE/SX: 83/M ROOM: RE11/01/[address]: Dr. Brian Brown MD : 1935 BED: DIS: 11/01/2018 SPEC #: [id number] RECD: 11/02/18 14:09 STATUS: EMY REQ #: [id number] LEN: 11/01/18 00:[address]: Brian Brown DEPT: IMMUNOHISTOCHEMISTRY RECD BY: Angelia Stevens ENTERED: 11/02/18 14:10 SP TYPE: IMMUNO OTHR DR: Dr. Livan Mcfarland MD Tissues: A - Axillary lymph node, NOS Procedures: BCL-2 (add) BCL-6 (add) CD10 (add) CD15 (add) CD20 (add) CD23 (add) CD30 (add) CD43 (add) CD45 (add) CD5 (add) CD79A (add) CYCLIN (add) KI-67 (add) CD3 (initial) PHYSICIAN & [address] [address] SPECIMEN INFORMATION: Tissue Source: A - Left axillary node biopsy Clinical Info: Lymphadenopathy, leukocytosis Specimen Number: [id number] CPT code: 34400, 50446 x13 METHODOLOGY: Deparaffinized sections of prefer/formalin-fixed tissue or PAP/DQ stained slides are incubated with monoclonal/polyclonal antibodies/oligonucleotide probes. Localization is made via biotin free immunoperoxidase method. Appropriate controls are performed and reacted as expected. Results on target cell population are indicated in the following table: RESULTS: ANTIBODY / CLONE RESULT Block A2 CD3 (PS1) positive CD5 (SP10) positive CD20 (L26) positive CD45 (RP2/18) positive CD79a (11E3) positive BCL-2 (bcl-2/100/D5) positive CD43 (L60) positive Cyclin D1/BCL-1 (SP4) negative BCL-6 (IV977N/A8) negative (positive in germinal center area) CD10 (56C6) negative (positive in germinal center area) CD23 (1B12) negative (positive dendritic cell pattern) Ki-67 (30-9) negative, moderate CD15 (MMA) positive, rare cells CD30 (Gianluca-H2) positive, rare cells These tests were developed and their performance characteristics determined by [facility]. They may not have been cleared or approved by the U.S. Food and Drug Administration. The FDA has determined that such clearance or approval is not necessary. INTERPRETATION: A. Left axillary node, biopsy: B-cell neoplasm of nonspecific phenotype. See comment. 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 Flow analysis supports the diagnosis. Case has been reviewed in consultation with Dr. Valdez who concurs with the above diagnosis. IDC:SJ
--- NOTE | 2018-11-01 | AXNB_PTH ---
PATIENT: RANULFO NEGRETE LOC: [facility] – [place] U#:[id number] AGE/SX: 83/M ROOM: RE11/01/[address]: Dr. Brian Brown MD : 1935 BED: DIS: 11/01/2018 SPEC #: [id number] RECD: 11/01/18 09:02 STATUS: EMY RETommy #: [id number] LEN: 11/01/18 00:[address]: Brian Brown DEPT: SURGICAL PATHOLOGY RECD BY: Angelia Stevens ENTERED: 11/01/18 09:52 SP TYPE: AX NODE BX OTHR DR: Dr. Livan Mcfarland MD Tissues: A - Axillary lymph node, NOS B - LIPOMA OF CORD C - Inguinal region, NOS Procedures: Gen Path Consultation (on slides) Special Stain Group II Surgery Specimen Level II Surgery Specimen Level III Surgery Specimen Level V Imprint (control) HEADER OPERATION: Hernia, inguinal with mesh; excisional lymph node biopsy, axillar PRE-OP DIAGNOSIS: Right inguinal hernia; lymphadenopathy, leukocytosis TISSUE SUBMITTED: A - Left axillary node biopsy, B - Lipoma of cord, right, C - Right inguinal hernia sac MICROSCOPIC DIAGNOSIS A. Left axillary lymph nodes, biopsy: B-cell neoplasm favoring large B-cell lymphoma. Black pigment deposition within the lymph node. See Comment. B. Lipoma of cord, right, biopsy: Mature adipose tissue, consistent with lipoma. C. Hernia sac, right inguinal: Mesothelial-lined fibroadipose and fibroconnective tissue consistent with hernia sac with focal chronic inflammation. SJ:zion 11/07/18 COMMENT A. The specimen is evaluated at the time of biopsy by Dr. Valdez. Immediate Evaluation: The specimen is consistent with lymph node tissue. Adequate for evaluation. Flow cytometry study from [facility] shows a 62% CD5 positive (dim) clonal B-cell population.This case is sent in consultation to [facility] where additional stains were perforned and the above diagnosis rendered. Their complete consultative report is viewable in patient's EMR. Immunohishistochemistry ([id number]) supports the diagnosis. Clinical correlation is suggested. This case was discussed with Dr. Kunz 11/16/18 and 11/20/[address] Wellington. MICROSCOPIC DESCRIPTION The lymph node architecture is effaced by a somewhat pleomorphic proliferation of B- cells with increased large B-cells which have irregular nuclear contours. The follicular dendritic network and germinal centers are distorted and focally contain black pigment. Occasional popcorn cells are noted raising the possibility that this neoplasm may have arisen in a nodular lymphocyte predominant Hodgkin lymphoma. GROSS DESCRIPTION A - Received fresh for adequacy (please confirm this is lymphatic tissue and confirm there is enough for permanent pathology) labeled with the patient's name is a specimen designated left axillary lymph node biopsy. The specimen consists of multiple pieces of yellow adipose tissue that in aggregate measure 4 x 3.5 x 1 cm. Multiple nodules consistent with lymph nodes are identified measuring 1 to 1.5 cm in greatest dimension. Four touch imprints are prepared (two stained with Diff-Quik and two stained with H & E). A section is submitted for flow cytometry studies. The entire specimen is submitted in five cassettes. B - Received in fixative is one container labeled with the patient's name and designated lipoma of cord, right. The specimen consists of an irregular piece of yellow adipose tissue measuring 7.5 x 5 x 1 cm. Sections reveal yellow adipose cut surfaces without area of hemorrhage, necrosis or cystic degeneration. Six Color Press Operator sections are submitted in two cassettes. C - Received in fixative is one container labeled with the patient's name and designated hernia sac right inguinal. The specimen consists of an irregular piece of bean-pink congested soft tissue measuring in aggregate 4 x 3 x 0.5 cm. No mass lesion is identified. Six Color Press Operator sections are submitted in one cassette. / SJ:zion 11/01/18 TC:0 CPT: 55299, 16918, 24654, 38124
[2018-11-01 07:31] LABS: Bedside Glucose 173 mg/dL (70-110)
[2018-11-01] MEDS: Cefazolin 2 GM in 0.9% Normal Saline 100 ML IV (07:32)
[2018-11-01] MEDS: Bupivacaine Mpf 0.5% 30 ML VIAL (07:48)
--- NOTE | 2018-11-01 09:29 | OP.PCM_ITS ---
Problem List (1) Lymphadenopathy, axillary Status: Chronic (2) Right inguinal hernia Status: Chronic Report of Operation Date of Procedure: 11/01/18 Pre-Operative Diagnosis: 1. Right inguinal hernia. 2. Lymphadenopathy Post-Operative Diagnosis: Same Surgery/Procedure Performed:: 1. Right inguinal hernia repair with mesh. 2. Left axillary excisional lymph node biopsy Specimen's removed: 1. Right inguinal lipoma. 2. Right inguinal hernia sac. 3. Left axillary lymph node Description of Procedure: The patient was brought back to the operating room and MAC anesthesia was induced and the right groin was prepped and draped in the usual sterile fashion. An incision was marked and then anesthetized and then the incision was made in the skin and deepened to the external aponeurosis. At this point the patient was unable to tolerate MAC anesthesia and change to general LMA. The external aponeurosis was opened with a scalpel and elevated with hemostats and then the incision was carried inferiorly to the external opening of the inguinal canal. Dissection was carried out and the spermatic cord with hernia sac was encircled with a Dinosaur. The patient had a large lipoma of the cord which was dissected free and suture-ligated. Next inguinal canal was inspected and the indirect hernia sac was identified and dissected free from the cord. The hernia sac was opened and ensuring that there were no contents and it was suture ligated with 2-0 silk suture. It was then divided and removed and sent for pathology. The inguinal canal was inspected once more and there were no more hernia contents. A keyhole mesh was tacked to the pubic tubercle using 2-0 PDS suture. Interrupted 2-0 PDS sutures were then used to tack the mesh to the shelving portion of the inguinal ligament as well as the conjoined tendon. The tails of mesh were wrapped around the spermatic cord and sutured in place to allow the t ip of the fifth digit to place next to the spermatic cord. Next the inguinal canal was irrigated and suctioned dry and the external aponeurosis was closed with a running 3-0 Vicryl suture. The subcutaneous Jose's fascia was closed with interrupted 3-0 Vicryl sutures and a running 4-0 Monocryl suture and glue. Attention was paid to the left axilla. Incision was marked and anesthetized with local and then a skin incision was made with a scalpel and using letter cautery was deepened to the axillary fascia which was incised. Dissection was carried down to the enlarged lymph node that was able to be palpated easily and it was black in color. The lymph node was excised sharply and sent for pathology. The deep cavity was packed and then irrigated and suctioned. There was good hemostasis. The axillary fascia was then closed with interrupted 3-0 Vicryl sutures and the skin was closed with a running subcuticular 4-0 Monocryl suture and glue. Patient tolerated the procedure well. - Admit VTE Documentation VTE Mechan Device Prophylaxis: SCD's
--- NOTE | 2018-11-01 09:31 | PCM.DC.HER ---
Discharge Diet: Light diet - advance as tolerated Discharge Activity: May Not Drive - for 3 days or while taking narcotic pain meds., May Shower - with the bandage in place 1-2 days after surgery. Lifting Restrictions: 20 pounds for 6 weeks. No mowing lawn for 1 week Additional Activity Instructions:: Climbing stairs is fine, walking is encouraged. Sitting in bed may be uncomfortable. Sitting up using your lateral muscles (sitting up sideways) is usually more comfortable. Do not drive, work heavy equipment of sign legal documents for 24 hours. If your hernia repair was an ingunial repair, you may have scrotal swelling, an ice pack and/or athletic support can provide more comfort. Pain medications may cause nausea, you should typically eat light foods as you take your pain medications. Pain medications may also cause constipation. If you have difficulty with this, discuss with your doctor. Call your doctor if your incision/area has: Continuous Slow Oozing, Sudden Increased Bleeding, Increased Pain/ Swelling, Increased Redness, Foul Smelling Discharge Call your doctor if you observe: Fever of 101 or Higher Suture Line Care: Avoid Pulling/Pushing, Avoid Pinching/Bending Cleanse incision/area with: Soap & Water Additional Instructions: Resume blood thinners tuesday Allergies/Adverse Reactions: Allergies No Known Allergies Allergy (Verified 10/31/18 13:47) Medications to take at Discharge cilostazol 100 mg tablet 100 mg PO BID 04/05/18 lisinopril 20 mg tablet 20 mg PO QHS tab 04/05/18 lovastatin 40 mg tablet 40 mg PO QHS 04/05/18 metformin 1,000 mg tablet 1,000 mg PO BID 04/05/18 Aspirin E.C. [Ecotrin] 81 mg PO DAILY@0800 04/10/18 Cholecalciferol (Vitamin D3) [Vitamin D3] 2,000 unit PO BID 04/10/18 Cinnamon Bark [Cinnamon] 1,000 mg PO BID 04/10/18 [place]-3 Fatty Acids/Fish Oil [Fish Oil 1,000 mg Capsule] 1 ea PO BID 04/10/18 Clopidogrel Bisulfate [Plavix] 75 mg PO DAILY 04/19/18 Tamsulosin HCl [Flomax] 0.4 mg PO QHS 09/08/18 Metoprolol Tartrate [Lopressor (Beta Shivani)] 50 mg PO BID 09/19/18 Hydrocodone Bitart/Apap 5-325 [Jackson 5MG-325MG] 1 tablet PO Q6H PRN PRN 4 Days #10 tablet 11/01/18 The following prescriptions were given: Hydrocodone Bitart/Apap 5-325 [Jackson 5MG-325MG] 1 tablet PO Q6H PRN PRN 4 Days #10 tablet PRN Reason: Pain Primary Care Physician: Livan Mcfarland MD [Primary Care Provider] - Test Results: Test results from this visit will be discussed in further detail at your follow-up appointment, if applicable. Please Follow Up With: Brian Brown MD When: Please call to schedule 2 week follow up appointment. [phone]
[2018-11-01 09:36] LABS: Bedside Glucose 161 mg/dL (70-110)
== END 2018-11-01 10:29 | disposition home or self-care (01) ==
LOC: SDC 05:51 → AC 05:51
PROVIDERS: Family Provider Family Medicine; PCP Family Medicine; Referring Provider Surgery; Visit Provider Surgery
PROC: (CPT 38525; principal; 2018-11-01 07:15)
PROC: (CPT 38500; 2018-11-01 07:15)
DX: K40.90 Unilateral inguinal hernia, without obstruction or gangrene, not specified as recurrent (principal); R59.0 Localized enlarged lymph nodes; C85.14 Unspecified B-cell lymphoma, lymph nodes of axilla and upper limb; I10 Essential (primary) hypertension; Z95.1 Presence of aortocoronary bypass graft; Z87.891 Personal history of nicotine dependence; E78.00 Pure hypercholesterolemia, unspecified; E11.9 Type 2 diabetes mellitus without complications
CPT/HCPCS: 38525; 49505; 82962; 88302; 88304; 88305; 88307; 88313; 88325; 88341; 88342; J7120; C1781; J2405

== ENCOUNTER → 2018-12-12 16:48 | Outpatient (CLI) | payer MEDICARE, OTHER, SELFPAY ==
[2018-12-12 13:06] VITALS: BMI 29.6
== END ==
PROVIDERS: Family Provider Family Medicine; PCP Family Medicine; Referring Provider Urology; Visit Provider Urology
DX: R30.0 Dysuria (principal)
CPT/HCPCS: 87086; 87088

== ENCOUNTER 2018-12-15 05:47 | Day surgery (SDC) | payer MEDICARE, OTHER, SELFPAY ==
[2018-10-26 13:45] VITALS: BMI 30.7
[2018-12-12 13:06] VITALS: BMI 29.6
[2018-12-15] VITALS (7 sets, daily range): BP systolic 163–179; BP diastolic 79–87; PULSE 57–95; RESP 16–18; TEMP 35.9–36.5; O2SAT 90–98; BMI 29.1
--- NOTE | 2018-12-15 07:04 | PCM.HP.BLA ---
Problem List (1) Encounter for adjustment or management of vascular access device Status: Acute History and Physical Date of Admission: 12/15/18 Intake Vital Signs 12/12/18 Height 6 ft 2 in 12/12/18 Weight: 231 lb 12/12/18 Body Mass Index (BMI) 29.6 12/12/18 Blood Pressure 128/69 H 12/12/18 Blood Pressure Location Rt brachial 12/12/18 Blood Pressure Position Sitting 12/12/18 Respiratory Rate 14 12/12/18 Pulse Rate 61 12/12/18 Pulse Source Monitor 12/12/18 Temperature 98.2 F 12/12/18 Temperature Source Oral 12/12/18 Pulse Ox 94 12/12/18 Oxygen Delivery Method room air 12/12/18 Body Mass Index (BMI) 29.6 Intake Visit Reasons: needs port placement Chief Complaint: F/U for Lymphocytosis/PET/CT result. Credit Interviewer Required: No Is patient in pain?: No Allergies No Known Allergies Allergy (Verified 12/12/18 13:07) Medications lisinopril 20 mg tablet 20 mg PO QHS tab 04/05/18 [History Confirmed 12/12/18] lovastatin 40 mg tablet 40 mg PO QHS 04/05/18 [History Confirmed 12/12/18] metformin 1,000 mg tablet 1,000 mg PO BID 04/05/18 [History Confirmed 12/12/18] Cholecalciferol (Vitamin D3) [Vitamin D3] 2,000 unit PO BID 04/10/18 [History Confirmed 12/12/18] Cinnamon Bark [Cinnamon] 1,000 mg PO BID 04/10/18 [History Confirmed 12/12/18] [place]-3 Fatty Acids/Fish Oil [Fish Oil 1,000 mg Capsule] 1 ea PO BID 04/10/18 [History Confirmed 12/12/18] Tamsulosin HCl [Flomax] 0.4 mg PO QHS 09/08/18 [History Confirmed 12/12/18] Metoprolol Tartrate [Lopressor (Beta Shivani)] 50 mg PO BID 09/19/18 [History Confirmed 12/12/18] [facility] Medical History Bladder cancer (Acute) Coronary artery disease (Acute) Diabetes (Acute) High cholesterol (Acute) History of pulmonary thrombosis (Acute) PVD (peripheral vascular disease) (Acute) Sleep apnea (Acute) Hypertension (Chronic) Surgical History H/O hernia repair (Acute) History of carotid endarterectomy (Acute) History of heart bypass surgery (Acute) History of left cataract extraction (Acute) History of tonsillectomy and adenoidectomy (Acute) Hx of lymph node biopsy (Acute) history of surgery for bladder tumors (Acute) history right leg bypass (Acute) Family History Sister Breast cancer Diabetes Mother Diabetes Brother Heart disease Hypertension Social History Smoking Status: Former smoker alcohol intake: current alcohol intake frequency: a few times a week details: May drink 3-4 beers a day then nothing for a week. Occasional moonshine substance use type: does not use HPI HPI HPI: RANULFO NEGRETE, is a 83 M who presents to the office today for HPI HPI Surgical H&P: Yes HPI: RANULFO NEGRETE, is a 83 M who presents to the office today for port consult. Patient had left axillary lymph node biopsy which showed lymphoma. He is here for port placement for chemotherapy. ROS General General: No weight change or fatigue Cardio Cardiovascular: No murmur, pacemaker, heart disease, atrial fibrillation, high blood pressure, heart attack, heart stent, palpitations, shortness of breat with exertion or chest pain Psych Psychiatric: No depression or anxiety Resp Respiratory: No shortness of breath, No sleep apnea, No cough, No COPD, No asthma, No emphysema, No wheezing Gastro Gastrointestinal: No abdominal pain, No nausea or vomiting, No diarrhea, No constipation, No blood in stool, No acid reflux, No hemorrhoids, No ulcers, No gallbladder problem, No black,tarry stools Andrea Hematologic: No blood thinners Exam Const General: cooperative Orientation: alert, oriented x3 Resp Effort & Inspection: normal respiratory effort Auscultation: clear to auscultation bilaterally Cardio Rate: regular rate Rhythm: regular rhythm Heart Sounds: no murmurs GI Inspection: non-distended Palpation: soft, nontender Assessment & Plan Problems 1. Encounter for insertion of venous access port Z45.2 2. 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 I plan to do this at the same time he is having a cystoscopy by Dr. Phillip. I explained port placement in detail to the patient. I explained the risks including but not limited to bleeding, infection, DVT, pneumothorax. Patient understands risks and is willing to proceed with surgery. Brian Brown MD Pager: [facility] [address] [place] [address] [address] [place] [address] Office:
[2018-12-15 07:16] LABS: Hematocrit 39.7 % (40-54); Hemoglobin 12.8 g/dl (13.0-16.5); Mean Corp Hgb Conc 32.2 g/gl (32-36); Mean Corpuscular Hgb 30.4 pg (27.0-32.0); Mean Corpuscular Volume 94.3 fL (80-94); Mean Platelet Vol. 10.2 fl (6.2-12.0); Platelet Count 188 K/mm3 (150-450); RBC Distribution Width CV 15.4 % (11.6-14.6); RBC Distribution Width SD 53.5 fl (35.1-43.9); Red Blood Count 4.21 M/mm3 (4.6-6.2); White Blood Count 26.8 K/mm3 (4.4-11.0)
[2018-12-15] MEDS: Cefazolin 2 GM in 0.9% Normal Saline 100 ML IV (07:25)
--- NOTE | 2018-12-15 07:30 | BLA_PTH ---
PATIENT: RANULFO NEGRETE [place] [facility] [place][id number] AGE/SX: 83/M ROOM: RE12/15/[address]: Dr. Joe Phillip MD : 1935 BED: DIS: 12/15/2018 SPEC #: [id number] RECD: 12/15/18 10:01 STATUS: EMY REQ #: [id number] LEN: 12/15/18 07:[address]: Joe Phillip DEPT: SURGICAL PATHOLOGY RECD BY: Gerald Hooker ENTERED: 12/15/18 11:06 SP TYPE: BLADDER BX OTHR DR: MD Dr. Livan Valiente MD Tissues: A - Urinary bladder, NOS B - Urinary bladder, NOS Procedures: Surgery Specimen Level IV HEADER OPERATION: Insertion vascular port - right PRE-OP DIAGNOSIS: Need for vascular access, lymphoma TISSUE SUBMITTED: A - Bladder biopsy posterior wall, B - Bladder tumor MICROSCOPIC DIAGNOSIS A. Bladder, posterior wall, biopsy: Invasive urothelial carcinoma. See cancer summary below. B. Bladder tumor, biopsy: Fragments of superficial atypical urothelium with marked fresh artifacts. SJ:zion 12/18/18 BLADDER CANCER (TUR) SUMMARY: Procedure - TURBT Histologic type - urothelial (transitional cell) carcinoma Associated epithelial lesions - none identified Histologic grade - urothelial carcinoma (WHO 2004/ISUP) - low grade 2/3 Tumor configuration - papillary Detrusor muscle - not identified Adequacy of material for determining muscularis propria invasion - muscularis propria (detrusor muscle) is not identified. Lymph-Vascular invasion - not identified Microscopic extent of tumor - tumor invades subepithelial connective tissue (lamina propria). Additional pathologic findings - chronic inflammation. The above summary is in compliance with [employer] (CAP) Cancer Protocols Checklist and [place] Joint Committee on Cancer (AJCC), Staging Manual, 8th Ed. COMMENT Correlation with clinical, cystoscopic findings and appropriate follow up are necessary. Please make reference to previous specimen ([id number]) urinary bladder tumor, TUR with diagnosis of urothelial carcinoma and ([id number]) left axillary lymph node, biopsy with diagnosis of B-cell neoplasm favoring large B-cell lymphoma. Case has been reviewed in consultation with Dr. Wellington who concurs with the above diagnosis. IDC:AM MICROSCOPIC DESCRIPTION Slides are reviewed. GROSS DESCRIPTION A - Received in fixative is one container labeled with the patient's name and designated posterior wall bladder biopsy. The specimen consists of one irregular fragment of light bean soft tissue that measures 0.3 x 0.2 x 0.1 cm. The specimen is totally submitted in one cassette. B - Received in fixative is one container labeled with the patient's name and designated bladder tumor. The specimen consists of one irregular fragment of light bean soft tissue measuring <0.1 cm in greatest dimension. The specimen is totally submitted in one cassette. / JOANNE:zion 12/15/18 TC:0 CPT: 15957 x2
[2018-12-15 07:35] LABS: Bedside Glucose 154 mg/dL (70-110)
[2018-12-15 07:40] LABS: Scan Indicated on CBC? Y/N NO
[2018-12-15] MEDS: Bupiv/Epi 0.5% Mpf 30 ML Vial (07:41)
[2018-12-15] MEDS: Lubricating Jelly 60 GM Tube 30 GM TOPICAL (08:20)
--- NOTE | 2018-12-15 09:00 | DCINST_ITS ---
Discharge Diet: Light diet - advance as tolerated Discharge Activity: Return to Normal Activity Call your doctor if your incision/area has: Sudden Increased Bleeding Suture Line Care: Avoid Pulling/Pushing, Avoid Pinching/Bending Allergies/Adverse Reactions: Allergies No Known Allergies Allergy (Verified 12/12/18 13:07) Medications to take at Discharge lisinopril 20 mg tablet 20 mg PO QHS tab 04/05/18 lovastatin 40 mg tablet 40 mg PO QHS 04/05/18 metformin 1,000 mg tablet 1,000 mg PO BID 04/05/18 Cholecalciferol (Vitamin D3) [Vitamin D3] 2,000 unit PO BID 04/10/18 Cinnamon Bark [Cinnamon] 1,000 mg PO BID 04/10/18 [place]-3 Fatty Acids/Fish Oil [Fish Oil 1,000 mg Capsule] 1 ea PO BID 04/10/18 Tamsulosin HCl [Flomax] 0.4 mg PO QHS 09/08/18 Metoprolol Tartrate [Lopressor (Beta Shivani)] 50 mg PO BID 09/19/18 Acetaminophen [Tylenol Extra Strength] 500 mg PO Q4H PRN PRN #20 tab 12/15/18 Ciprofloxacin [Cipro] 500 mg PO BID #6 tab 12/15/18 Clopidogrel Bisulfate [Clopidogrel] 75 mg PO DAILY 12/15/18 Ibuprofen 600 mg PO Q6H PRN PRN #20 tab 12/15/18 The following prescriptions were given: Acetaminophen [Tylenol Extra Strength] 500 mg PO Q4H PRN PRN #20 tab PRN Reason: Pain Ibuprofen 600 mg PO Q6H PRN PRN #20 tab PRN Reason: Pain Ciprofloxacin [Cipro] 500 mg PO BID #6 tab Orders to be completed after discharge: CBC-Complete Blood Cnt No Diff Time Frame: 11/22/18, Location: Laboratory Primary Care Physician: Livan Mcfarland MD [Primary Care Provider] - Test Results: Test results from this visit will be discussed in further detail at your follow- up appointment, if applicable. Please Follow Up With: Joe Phillip MD When: in 2 weeks, please call to make an appointment.
--- NOTE | 2018-12-15 09:06 | OP.PCM_ITS ---
Report of Operation Date of Procedure: 12/15/18 Pre-Operative Diagnosis: Bladder cancer recurrent Post-Operative Diagnosis: the same Surgery/Procedure Performed:: Transurethral resection of bladder tumor multiple sites, right stent placement,. and mitomycin C placed. Description of Surgical Findings:: Indication this is an 83-year-old male with a history of superficial bladder cancer on surveillance cystoscopy patient was found to haveRecently recurrent tumors inside the bladder and multiple locations he is now taken to the operating room for transurethral resection of these multiple tumors and fulguration of tumors. The penis and testicles are prepped and draped in usual sterile fashion, I first went into the bladder with a 21 Prydeinig rigid cystourethroscope, the entire length of the urethra was normal pendulous urethra was normal bulbar urethra is normal sphincter was intact went to the sphincter the prostate had some mild BPH but no significant obstruction the Maribell was intact once I got inside the bladder took some time to identify the left ureteral orifice which was hard to find after some time and then the right ureteral orifice was surrounded by tumor. He had some tumor that was around the right ureter orifice about 2.2 cm in size in the floor of the bladder and in the posterior wall along the edges of the prior resection there was tumors of the edges about 3 mm wide and 3 cm long there is also another back to the tumors up in the dome area in the dome right side again narrow band of tumors about 3 mm wide and 2 cm long in the prior resection site the posterior bladder looks clear I then went in with the bladder and rectal biopsy cold cup biopsy to get a diagnosis to get a good biopsy of the tumors. I then went with the Bugbee electrode and cauterized the tumors along the posterior wall as described and around the ureteral orifice on the right side I could not reach the dome of the bladder with a regular cystoscope so then I used a Glidewire put a wire up the ureteral orifice and then put a stent in on the right side distal to allow the ureter to heal open since there was tumors around the ureteral orifice. I then put in the resectoscope in the bladder and then resected the tumor that was up in the dome of the bladder that was a 2 cm x 3 mm wide tumor along the edge of the prior resection this was resected then I looked inspected the entire bladder continuously did not see any other tumors noted no major bleeding took out the resectoscope and instilled mitomycin-C into the bladder. So multiple tumors in the bladder were resected. Mitomycin-C was placed into the bladder. A stent was placed in the right side because the tumors surrounding the right ureteral orifice. Type of Anesthesia:: General Drains: stnet right no string. - Admit VTE Documentation VTE Present on Admission: No VTE Mechan Device Prophylaxis: SCD's
--- NOTE | 2018-12-15 09:10 | OP.PCM_ITS ---
Problem List (1) Encounter for adjustment or management of vascular access device Status: Acute Report of Operation Date of Procedure: 12/15/18 Pre-Operative Diagnosis: Need for vascular access for lymphoma treatment Post-Operative Diagnosis: Same Surgery/Procedure Performed:: Ultrasound and fluoroscopy guided right chest port placement utilizing right IJ Description of Procedure: After obtaining informed consent patient was brought back to the operating room MAC anesthesia was induced and the right chest and neck were prepped in normal sterile fashion. Ultrasound was used to evaluate both IJs and the right IJ was selected. Next, using a needle, the right IJ was accessed and a guidewire was passed on into the superior vena cava under fluoroscopy guidance. A small incision was made over the puncture site and the dilator introducer was placed over the guidewire. Next this was capped and the pocket was made for the port. 1% lidocaine with epinephrine was injected in the proposed port site. An incision was made with scalpel. Electrocautery was used to make a pocket under the skin and subcutaneous tissue. Hemostasis was obtained. Next, the catheter was tunneled up to the neck incision site and placed through the introducer. The peel-away introducer was removed and the position of the catheter was confirmed on fluoroscopy. Next, the catheter was trimmed and attached to the port with the locking device. Interrupted 2-0 Vicryl sutures were used to anchor the port to the chest wall and then the port was placed inside the pocket. The pocket was then flushed with saline and the port irrigated with saline. There was good blood return and the port flushed easily. Next, heparin was injected into the port. The skin was closed with subcutaneous interrupted 3-0 Vicryl sutures. A single 3-0 Vicryl sutures placed under the skin at the neck incision site. Steri-Strips were placed as well as op sites. Patient tolerated procedure well, was taken to PACU in stable condition. Chest x-ray will be obtained. Grafts/Implants Used: 8 [place] [employer]
--- NOTE | 2018-12-15 09:10 | PCM.DC.POR ---
Discharge Diet: Light diet - advance as tolerated Discharge Activity: Return to Normal Activity Call your doctor if your incision/area has: Sudden Increased Bleeding Call your doctor if you observe: Fever of 101 or Higher Suture Line Care: Avoid Pulling/Pushing, Avoid Pinching/Bending Remove Dressing in (days):: 2 - When you remove the bandage, leave the steri-strips intact until they fall off. Allergies/Adverse Reactions: Allergies No Known Allergies Allergy (Verified 12/12/18 13:07) Medications to take at Discharge lisinopril 20 mg tablet 20 mg PO QHS tab 04/05/18 lovastatin 40 mg tablet 40 mg PO QHS 04/05/18 metformin 1,000 mg tablet 1,000 mg PO BID 04/05/18 Cholecalciferol (Vitamin D3) [Vitamin D3] 2,000 unit PO BID 04/10/18 Cinnamon Bark [Cinnamon] 1,000 mg PO BID 04/10/18 [place]-3 Fatty Acids/Fish Oil [Fish Oil 1,000 mg Capsule] 1 ea PO BID 04/10/18 Tamsulosin HCl [Flomax] 0.4 mg PO QHS 09/08/18 Metoprolol Tartrate [Lopressor (Beta Shivani)] 50 mg PO BID 09/19/18 Acetaminophen [Tylenol Extra Strength] 500 mg PO Q4H PRN PRN #20 tab 12/15/18 Ciprofloxacin [Cipro] 500 mg PO BID #6 tab 12/15/18 Clopidogrel Bisulfate [Clopidogrel] 75 mg PO DAILY 12/15/18 Ibuprofen 600 mg PO Q6H PRN PRN #20 tab 12/15/18 The following prescriptions were given: Acetaminophen [Tylenol Extra Strength] 500 mg PO Q4H PRN PRN #20 tab PRN Reason: Pain Ibuprofen 600 mg PO Q6H PRN PRN #20 tab PRN Reason: Pain Ciprofloxacin [Cipro] 500 mg PO BID #6 tab Orders to be completed after discharge: CBC-Complete Blood Cnt No Diff Time Frame: 11/22/18, Location: Laboratory Primary Care Physician: Livan Mcfarland MD [Primary Care Provider] - Test Results: Test results from this visit will be discussed in further detail at your follow-up appointment, if applicable. Please Follow Up With: Brian Brown MD When: Please call to schedule 2 week follow up appointment. [phone]
--- NOTE | 2018-12-15 09:25 | RAD_ITS ---
STUDY: X-RAY CHEST REASON FOR EXAM: Male, 83 years old. Line placement. TECHNIQUE: Single AP portable view of the chest. COMPARISON: April 19, 2018. FINDINGS: Port on the right extending to the lower superior vena cava. There is right upper lung granuloma. There is no focal infiltrate. There is no demonstrated pleural abnormality. Sternal cerclage wires are present from a prior sternotomy. Normal mediastinum and tracie. Normal visualized pulmonary arteries. Normal visualized aortic arch and descending thoracic aorta. Normal visualized thoracic spine. Normal visualized ribs, clavicles, and shoulders. There is no demonstrated abnormality of the visualized soft tissue structures of the upper abdomen. RAD/CXR for Line Placement IMPRESSION: Port on the right. No pneumothorax. Electronically Signed: Atul Moctezuma MD at 11:11 EDT , Service support ,
[2018-12-15 09:45] LABS: Bedside Glucose 138 mg/dL (70-110)
== END 2018-12-15 11:33 | disposition home or self-care (01) ==
LOC: SDC 05:47 → AC 05:48
PROVIDERS: Anesthesiology; Surgery; Family Provider Family Medicine; PCP Family Medicine; Referring Provider Urology; Visit Provider Urology
PROC: (CPT 36561; principal; 2018-12-15 07:15)
PROC: 0TBB8ZZ Excision of Bladder, Via Natural or Artificial Opening Endoscopic (ICD-10-PCS; CPT 52240; 2018-12-15 07:15)
DX: Z45.2 Encounter for adjustment and management of vascular access device (principal); C85.94 Non-Hodgkin lymphoma, unspecified, lymph nodes of axilla and upper limb; C67.8 Malignant neoplasm of overlapping sites of bladder; K40.30 Unilateral inguinal hernia, with obstruction, without gangrene, not specified as recurrent; I10 Essential (primary) hypertension; E11.9 Type 2 diabetes mellitus without complications; Z87.891 Personal history of nicotine dependence; Z95.1 Presence of aortocoronary bypass graft; Z86.711 Personal history of pulmonary embolism
CPT/HCPCS: 36561; 52240; 36415; 71045; 77001; 82962; 85027; 88305; J7120; C1788; J2405; J3490; J9280

== ENCOUNTER → 2018-12-25 13:41 | Outpatient (CLI) | payer MEDICARE, OTHER, SELFPAY ==
[2018-11-28 14:16] VITALS: BMI 29.6
[2018-12-20 13:19] VITALS: BMI 29.3
--- NOTE | 2018-12-25 13:42 | CT_ITS ---
STUDY: CT CHEST WITHOUT CONTRAST REASON FOR EXAM: Male, 83 years old. Restaging of non-Hodgkin's lymphoma, history of bladder cancer with surgery RADIATION DOSAGE (If Supplied By Facility): CTDIvol = ( 18.67 ) mGy, DLP = ( 797.64 ) mGycm TECHNIQUE: Transaxial imaging was performed without the administration of intravenous contrast material. Individualized dose optimization techniques were used for this CT. COMPARISON: 16 October 2018 FINDINGS: Evaluation is limited due to lack of IV contrast. Some diagnostic information is available. 5 cm heterogeneous centrally hypodense lesion arises from the left thyroid hemilobe and extends superiorly, likely thyroid nodule. Airway is patent. Right thyroid lobe is normal. There is mild emphysema with scattered scars and atelectasis. Pleural surfaces are intact. There is prior open heart surgery and coronary bypass grafting. Cardiac chambers are normal in size and shape. Pericardium is intact. Evaluation for mediastinal lymphadenopathy is limited due to lack of IV contrast. There is increased number of mediastinal lymph nodes, most of which have normal shape and are borderline in size, given history of prior open heart surgery. A prevascular lymph node measures 1.7 x 8 mm. Precarinal lymph node or conglomerate of 2 lymph nodes is present measuring 2.2 cm. Hilar lymphadenopathy cannot be quantitated. There is bilateral axillary lymphadenopathy. There is a rounded 3.5 cm left axillary structure which is hypodense, with internal contents measuring less than 5HU and linear overlying inflammatory change, possibly representing postbiopsy seroma. An adjacent pathologic lymph node measures 2.5 cm in dimension, previously 2 cm. Remainder of the lymph nodes are also mildly increased in size, however, less than 50% increase in diameter. There is a right internal jugular entry chemotherapy infusion port remaining with its tip in the lower SVC. Osseous structures are intact. CT/Chest without Contrast IMPRESSION: 1. Presumed postbiopsy seroma/hematoma in the left axilla. 2. Bilateral axillary, mediastinal lymphadenopathy. Refer to CT PET for evaluation of metabolic activity to detect viable neoplasm. 3. Left thyroid hemilobe nodule. Electronically Signed: Subhash Hare, at 17:25 EDT Tel , Service support ,
--- NOTE | 2018-12-25 13:42 | CT_ITS ---
STUDY: CT ABDOMEN AND PELVIS WITHOUT CONTRAST REASON FOR EXAM: Male, 83 years old. Restaging of non-Hodgkin's lymphoma RADIATION DOSAGE (If Supplied By Facility): CTDIvol = ( 23.00 ) mGy, DLP = ( 1236.78 ) mGycm TECHNIQUE: Transaxial images were obtained from the dome of the diaphragm to the symphysis pubis without oral contrast, and without intravenous contrast. Sagittal and coronal images were reconstructed. Individualized dose optimization techniques were used for this CT. COMPARISON: 16 October 2018 FINDINGS: Examination is limited due to lack of IV contrast. There are bilateral pelvic lymph nodes along the iliac vessels measuring up to 2 cm. There is no inguinal lymphadenopathy. There are multiple periaortic lymph nodes with the largest node located to the left of the aorta measuring 3 cm. Lymph node size and number and distribution is stable since October. There is a right double-J ureteral self-retaining stent with mild pelviectasis. The ureter is decompressed. The bladder is incompletely distended and cannot be reliably evaluated. There is a left renal cyst partially extending into the central renal sinus and simulating hydronephrosis. The ureter and calyces are not dilated. There are changes of right inguinal hernia repair with inflammatory reaction in the spermatic cord structures. There is no recurrent hernia. Previously seen bowel loops are not located in the hernia sac anymore. Liver, gallbladder, pancreas and adrenal glands are normal. There is moderate splenomegaly, with benign calcified granulomata. There is no intestinal obstruction. Appendix is surgically removed. Osseous structures are intact. There is prior right aorta femoral bypass. CT/Abdomen/Pelvis without Cont IMPRESSION: 1. Stable neoplastic disease. 2. Stable retroperitoneal lymphadenopathy. 3. Right ureteral stent with decompressed system. 4. Recent and remote postsurgical changes. Electronically Signed: Subhash Hare, at 19:08 EDT Tel , Service support ,
== END ==
PROVIDERS: Family Provider Family Medicine; PCP Family Medicine; Referring Provider Internal Medicine Medical Oncology; Visit Provider Internal Medicine Medical Oncology
DX: C85.94 Non-Hodgkin lymphoma, unspecified, lymph nodes of axilla and upper limb (principal); C85.83 Other specified types of non-Hodgkin lymphoma, intra-abdominal lymph nodes
CPT/HCPCS: 71250; 74176

== ENCOUNTER 2019-01-01 21:15 | Inpatient (IN) | payer MEDICARE, OTHER, SELFPAY ==
[2018-12-27 14:09] VITALS: BMI 29.6
[2019-01-01 21:16] VITALS: BP 206/124; PULSE 83; RESP 21; TEMP 36.3; O2SAT 92; BMI 29.0
[2019-01-01 21:25] LABS: Bedside Glucose 271 mg/dL (70-110)
[2019-01-01 22:06] LABS: Absolute Lymphocyte Count 0.69 X10^3/ul (0.83-4.51); Absolute Neutrophil Count 5.1 X10^3/uL (2.0-7.7); Basophil# 0.04 X10^3/uL; Basophil% 0.6 % (0-1); Eosinophil# 0.41 X10^3/uL; Eosinophils% 6.3 % (0-5); Hematocrit 40.7 % (40-54); Hemoglobin 13.6 g/dl (13.0-16.5); Lymphocyte # 0.69 X10^3/ul (4.0); Lymphocyte % 10.5 % (19-41); Mean Corp Hgb Conc 33.4 g/gl (32-36); Mean Corpuscular Hgb 30.4 pg (27.0-32.0); Mean Corpuscular Volume 90.8 fL (80-94); Mean Platelet Vol. 10.6 fl (6.2-12.0); Monocyte# 0.27 X10^3/uL; Monocyte% 4.1 % (0-10); Neutrophil # 5.11 X10^3/uL (2.7-7.7); Neutrophil % 77.9 % (47-70); POSITIVE COUNT NO; POSITIVE DIFFERENTIAL NO; POSITIVE MORPHOLOGY NO; Platelet Count 278 K/mm3 (150-450); RBC Distribution Width CV 15.1 % (11.6-14.6); RBC Distribution Width SD 48.8 fl (35.1-43.9); Red Blood Count 4.48 M/mm3 (4.6-6.2); White Blood Count 6.6 K/mm3 (4.4-11.0)
[2019-01-01] MEDS: 0.9% Normal Saline 1,000 ML 150 ML IV (22:06)
[2019-01-01 22:19] LABS: Anion Gap 6 (5-15); BUN 32 mg/dL (7-18); BUN/Creat Ratio 19.2 RATIO (10-20); Calcium,Total 10.2 mg/dL (8.5-10.1); Chloride 109 mmol/L (98-107); Creatinine, Serum 1.67 mg/dL (0.70-1.30); EST Glomerular Filtration Rate 42 mL/min (>60); Est Glom Filt Rate - Afr Amer 51 mL/min (>60); Estimated Creatinine Clearance 40.33 ml/min; Glucose 253 mg/dL (74-106); Potassium 4.1 mmol/L (3.5-5.1); Sodium Level 141 mmol/L (136-145)
--- NOTE | 2019-01-01 22:32 | ED.DCSUM_ITS ---
- ER Visit Summary Date of Service: 01/01/19 Chief Complaint: [Urinary retention and hematuria] History of Present Illness: The patient is a 83 M [to the emergency department with complaint of hematuria started initially yesterday and he would have it off and on yesterday. Patient states that he is not been able to urinate since around 1 PM today. Patient does describe abdominal discomfort suprapubically. Patient had no fevers. Patient does have a history of bladder cancer and he also currently has a stent in his left ureter. Patient has a history of prior pulmonary emboli, lymphoma, coronary artery disease, diabetes, hypertension, and peripheral vascular disease. Patient is currently on Plavix and aspirin.] Physical Examination: [HEENT-PERRLA, EOMI. Cranial nerves II through XII grossly intact. TMs clear. Mucous membranes moist. No adenopathy. Cardiovascular-regular rate and rhythm without murmur or ectopy Lungs-clear to auscultation, chest wall stable without crepitus or subcu emphysema Abdomen-normoactive bowel sounds, soft. Patient has some mild suprapubic tenderness to palpation. There is no rebound, rigidity, cranial signs. Extremities-intact ?4, normal range of motion, normal pulses, atraumatic] Test Results: [EKG obtained erosive sinus rhythm with ventricular rate [address] changes. CBC with differential obtained showed a white count 6.6, hemoglobin 13.6, hematocrit 21, platelet 278.] Emergency Department Course and Treatment: [Patient had a three-way Ochoa catheter placed in his bladder and large amount of clots were suctioned from the bladder. Patient was hooked up to continuous bladder irrigation.] Case was discussed with urology who asked that patient be admitted to medicine and urology will consult. Treatment Plan: [Admit for continuous bladder irrigation] Disposition: [Admit] Impression: [Urinary retention Hematuria] This note was generated with [employer] dictation software. It may contain incorrect words, spelling, and punctuation that were not noted in review of the chart prior to signing ED Disposition - Plan for ED Patient: Referrals: Livan Mcfarland MD [Primary Care Provider] -
--- NOTE | 2019-01-01 22:46 | HP.PCM_ITS ---
Problem List (1) Hematuria, gross Status: Acute History of Present Illness Date of Admission: 01/01/19 Chief Complaint: Gross Hematuria The patient is a 83 year old M with a significant history of bladder cancer status post intravesical BCG and cystectomy; stage III lymphoma who presented with gross hematuria that started on the same day of presentation. Associated with his symptoms is urinary retention. At the emergency department, a Ochoa catheter was started on continuous bladder irrigation. Notably patient was noted to have many bloody clots in his urine Past Medical History Past Medical History (Chronic Problems): Chronic Problems (Last Reviewed 01/01/19 @ 23:46 by Nash London MD) Hypertension (Chronic) Right inguinal hernia (Chronic) 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) Coronary artery disease (Chronic) Dyslipidemia (Chronic) History of pulmonary embolism (Chronic) Peripheral arterial disease (Chronic) Obstructive sleep apnea (Chronic) Hypertension (Chronic) History of bladder cancer (Chronic) Lymphocytosis (Chronic) Lymphadenopathy, axillary (Chronic) Thyromegaly (Chronic) Lymphoma (Chronic) Medical History: Medical History (Last Reviewed 01/02/19 @ 01:30 by Nash London MD) Hypertension (Chronic) I10 PVD (peripheral vascular disease) (Acute) I73.9 Coronary artery disease (Acute) I25.10 History of pulmonary thrombosis (Acute) Z86.711 Diabetes (Acute) E11.9 High cholesterol (Acute) E78.00 Sleep apnea (Acute) G47.30 Bladder cancer (Acute) C67.9 Leukocytosis (Acute) D72.829 Lower urinary tract symptoms (Acute) R39.9 Right inguinal hernia (Chronic) K40.90 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) E11.69, E66.9 Coronary artery disease (Chronic) I25.10 Dyslipidemia (Chronic) E78.5 History of pulmonary embolism (Chronic) Z86.711 Peripheral arterial disease (Chronic) I73.9 Obstructive sleep apnea (Chronic) G47.33 Hypertension (Chronic) I10 History of bladder cancer (Chronic) Lymphocytosis (Chronic) D72.820 Lymphadenopathy, axillary (Chronic) R59.0 Thyromegaly (Chronic) E01.0 Lymphoma (Chronic) C85.90 Allergies No Known Allergies Allergy (Verified 01/01/19 21:25) Home Medications: Ambulatory Orders Medication Instructions Recorded lisinopril 20 mg tablet 20 mg PO QHS tab 04/05/18 lovastatin 40 mg tablet 20 mg PO QHS 04/05/18 metformin 1,000 mg tablet 1,000 mg PO BID 04/05/18 Cholecalciferol (Vitamin D3) 2,000 unit PO BID 04/10/18 [Vitamin D3] Cinnamon Bark [Cinnamon] 1,000 mg PO BID 04/10/18 [place]-3 Fatty Acids/Fish Oil [Fish 1 ea PO BID 04/10/18 Oil 1,000 mg Capsule] Tamsulosin HCl [Flomax] 0.4 mg PO QHS 09/08/18 Metoprolol Tartrate [Lopressor 50 mg PO BID 09/19/18 (Beta Shivani)] Clopidogrel Bisulfate [Clopidogrel] 75 mg PO DAILY 12/15/18 Aspirin 81 mg PO DAILY 01/01/19 Surgical History: Surgical History (Last Reviewed 01/02/19 @ 01:30 by Nash London MD) History of heart bypass surgery (Acute) Z95.1 history right leg bypass (Acute) History of tonsillectomy and adenoidectomy (Acute) Z98.890 History of left cataract extraction (Acute) Z98.42 History of carotid endarterectomy (Acute) Z98.890 history of surgery for bladder tumors (Acute) Hx of lymph node biopsy (Acute) Z98.890 Left H/O hernia repair (Acute) Z98.890, Z87.19 Nov 2018 Surgical History: - - TURBT multiple Lives: Spouse/ Significant Other Smoking Status: Former smoker - *Family History Paternal Family History: Family History (Last Reviewed 01/02/19 @ 01:30 by Nash London MD) Sister Breast cancer Diabetes Mother Diabetes Brother Heart disease Hypertension History Items: No pertinent history Review of Systems Constitutional: Denies: Chills, Fever, Weight Change HEENT: Denies: Head Aches, Sinus Congestion, Sinus Drainage Cardiovascular: Denies: Chest Pain, Palpitations Respiratory: Denies: Cough, Shortness of breath at rest, Sputum production Gastrointestinal: Denies: Abdominal Pain, Nausea, Vomiting Genitourinary: Reports: Hematuria, Retention Musculoskeletal: Denies: Joint Pain, Joint Tenderness Skin: Denies: Rash, Wounds Neurological: Denies: Numbness, Tingling, Focal weakness Psychiatric: Denies: Anxiety, Depression, Homicidal Ideations, Suicidal Ideations Hematologic/ Lymphatic: Denies: Easy Bruising, Easy Bleeding VTE Information - Inpt Only VTE Present on Admission: No VTE Mechan Device Prophylaxis: None VTE Pharm Prophylaxis ordered?: No Reason prophylaxis not ordered:: Treatment Not Indicated - Patient with hematuria. Patient Problems: Active and Suspected Problems (Last Reviewed 01/01/19 @ 23:46 by Nash London MD) Hematuria, gross (Acute) - Physical Exam General: Alert, Oriented x3, Cooperative HEENT: Atraumatic, PERRLA, EOMI, Normocephalic Neck: Supple, No JVD, Negative Carotid Bruits Lungs: Clear to auscultation, Normal air movement Cardiovascular: Regular rate, No murmurs Abdomen: Bowel Sounds Present, Soft, Tender Extremities: No edema, Capillary Refill Less than 3 Seconds Skin: No rashes, No breakdown Musculoskeletal: No Tenderness to Palpation of Joints or Extremities Neurological: Cranial nerves II-XII grossly intact Psych/Mental Status: Normal Affect, Appropriate Vital Signs Temp Pulse Resp BP Pulse Ox 97.4 F L 83 21 H 206/124 H 92 01/01/19 21:16 01/01/19 21:16 01/01/19 21:16 01/01/19 21:16 01/01/19 21:16 Oxygen Delivery Method Room Air Weight: 102.7 kg Body Mass Index (BMI) 29.0 Laboratory Tests Past 24 Hrs 01/01/19 01/01/19 21:23 21:23 WBC 6.6 RBC 4.48 L Hgb 13.6 Hct 40.7 MCV 90.8 MCH 30.4 MCHC 33.4 RDW 15.1 H RDW Differential 48.8 H Plt Count 278 MPV 10.6 Immature Gran % (Auto) 0.600 Neut % (Auto) 77.9 H Lymph % (Auto) 10.[address] [place] % (Auto) 4.1 Eos % (Auto) 6.3 H Baso % (Auto) 0.6 Absolute Neuts (auto) 5.1 Absolute Lymphs (auto) 0.69 L Total Counted Not Reportable Sodium 141 Potassium 4.1 Chloride 109 H Carbon Dioxide 26.0 Anion Gap 6 BUN 32 H Creatinine 1.67 H Estim Creat Clear Calc 40.33 Est GFR (MDRD) Af Amer 51 L Est GFR (MDRD) Non-Af 42 L BUN/Creatinine Ratio 19.2 Glucose 253 H Calcium 10.2 H POC Glucose 01/01/19 21:20 POC Glucose 271 H Assessment/Plan All Active Problems (Last Reviewed 01/01/19 @ 23:46 by Nash London MD) Hematuria, gross (Acute) History of heart bypass surgery (Acute) history right leg bypass (Acute) History of tonsillectomy and adenoidectomy (Acute) History of left cataract extraction (Acute) History of carotid endarterectomy (Acute) history of surgery for bladder tumors (Acute) PVD (peripheral vascular disease) (Acute) Coronary artery disease (Acute) History of pulmonary thrombosis (Acute) Diabetes (Acute) High cholesterol (Acute) Sleep apnea (Acute) Bladder cancer (Acute) Hx of lymph node biopsy (Acute) H/O hernia repair (Acute) Encounter for adjustment or management of vascular access device (Acute) Bladder cancer (Acute) Encounter for education (Acute) Leukocytosis (Acute) Lower urinary tract symptoms (Acute) The patient is a 83 year old M with a significant history of bladder cancer status post intravesical BCG and cystectomy; stage III lymphoma who presented with gross hematuria that started on the same day of presentation. Gross hematuria with urinary retention Likely secondary to bladder cancer. Bladder irrigation was started at the emergency department; continued. Will keep patient n.p.o. and consult Dr. Phillip. Hold aspirin and Plavix. Trend H&H. Hypertensive urgency. On presentation history blood pressure was 206 and his diastolic blood pressure was 124 Hold lisinopril because of ADAM. But of note the ADAM is likely due to obstructive nephropathy. Hydralazine IV as needed ADAM On presentation his creatinine was 1.62 BUN over creatinine was 19.2 His creatinine about 7 days ago was 1.28; baseline creatinine is about 1.28. 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 Ochoa placed at the ED. Patient getting continuous bladder irrigation. Urology to see patient. Trend BMP. Start on gentle IV hydration. Hold GEOVANNI inhibitor. Avoid nephrotoxic's. Diabetes On presentation his blood glucose was not within goal Hold home metformin for now Accu-Chek every 6 hours with correction scale insulin ordered. CAD status post CABG Aspirin and Plavix held secondary to gross hematuria PAD Reports having bypass in his leg. Aspirin and Plavix held secondary to gross hematuria. DVT prophylaxis No chemical thromboprophylaxis because of gross hematuria. SCDs ordered Code Visit OBSV E&M: 52356 Initial observation care L3
[2019-01-01 23:00] VITALS: BP 173/84; PULSE 80; RESP 18; O2SAT 92
--- NOTE | 2019-01-01 23:18 | NURSING ---
unable to collect urine sample; difficult three way coughlin insertion required lidocaine and irrigation to insert. sample would have been skewed.
[2019-01-02] VITALS (11 sets, daily range): BP systolic 103–180; BP diastolic 52–103; PULSE 88–103; RESP 16–18; TEMP 36.4–36.6; O2SAT 93–94; BMI 28.3; BMI 28.4
[2019-01-02] MEDS: 0.9% Normal Saline 1,000 ML 75 ML IV (01:20)
[2019-01-02] MEDS: Insulin Lispro 100 UNIT/ML INSULN.PEN SC ×4 (01:20→21:58)
[2019-01-02 01:41] LABS: Bedside Glucose 204 mg/dL (70-110)
[2019-01-02] MEDS: 0.9% NaCl VAD Flush IV ×7 (01:53→20:33)
[2019-01-02 02:05] LABS: Hematocrit 38.8 % (40-54); Hemoglobin 12.8 g/dl (13.0-16.5)
[2019-01-02 05:56] LABS: Bedside Glucose 192 mg/dL (70-110)
[2019-01-02 06:01] LABS: Anion Gap 8 (5-15); BUN 28 mg/dL (7-18); BUN/Creat Ratio 21.2 RATIO (10-20); Calcium,Total 9.6 mg/dL (8.5-10.1); Chloride 111 mmol/L (98-107); Creatinine, Serum 1.32 mg/dL (0.70-1.30); EST Glomerular Filtration Rate 55 mL/min (>60); Est Glom Filt Rate - Afr Amer 67 mL/min (>60); Estimated Creatinine Clearance 51.03 ml/min; Glucose 209 mg/dL (74-106); Potassium 4.1 mmol/L (3.5-5.1); Sodium Level 145 mmol/L (136-145)
--- NOTE | 2019-01-02 07:37 | PCM.CONS.B ---
- Consult Date of Consult: 01/02/19 - Reason for Consult Patient returns, 83-year-old male the history of bladder cancer completed BCG therapy, has a history of bladder cancer and had recurrence recently underwent transurethral resection of the bladder tumors in mid December. Pathology was consistent with low-grade papillary multifocal bladder tumor which was noninvasive he did have invasion into lamina propria layer. We were planning mitomycin-C treatment but he is also undergoing treatment with chemotherapy from his oncologist. Presented to the hospital with bleeding. He is known to take Plavix. He had a three-way catheter placed and is on continuous bladder irrigation. ALLERGIES: None MEDICATIONS: Aspir 81 81 mg tablet, delayed release 1 tablet PO Daily Cinnamon Fish Oil Lisinopril 20 mg tablet Metformin Hcl 1,000 mg tablet Metoprolol Succinate 50 mg tablet, extended release 24 hr Plavix 75 mg tablet 1 tablet PO Daily PSH: Bladder Instill AntiCA Agent - 07/20/2018, 07/13/2018, 07/06/2018, 05/12/2018 Cystoscopy - 10/26/2018, 04/19/2018 Cystoscopy TURBT >5 cm - 05/12/2018 PSH Notes: vascular bypass of the leg 2004 heart bypass 2007 Carotid 2008 NON- PSH: Colonoscopy - about 2008 Coronary Artery Bypass Grafting Heart Surgery (Unspecified) Patient not documented to have received pneumococcal vaccination Tonsillectomy PMH: Malignant neoplasm of bladder, unspecified - 07/20/2018, - 07/13/2018 Malignant neoplasm of overlapping sites of bladder - 06/01/2018 Unil inguinal hernia, w obst, w/o gangr, not spcf as recur - 04/03/2018 Neoplasm of uncertain behavior of bladder Nocturia NON- PMH: Other secondary hypertension 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 Has not smoked since 04/03/2005. Does not use smokeless tobacco. Drinks 2 drinks per day. Types of alcohol consumed: Beer. Light Drinker. Does not use drugs. Drinks 2 caffeinated drinks per day. Has had a blood transfusion. 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 REVIEW OF SYSTEMS: Constitutional: Patient denies fever, chills, weight loss, and weight gain. Gastrointestinal: Patient denies abdominal pain, nausea/vomiting, and change in bowels. Genitourinary: Patient reports frequent urination and get up at night to void. Patient denies urinary retention, leakage of urine, ++ blood in urine, frequent urinary tract infections, history of stones, difficulty starting stream, weak stream, and bedwetting. VITAL SIGNS: 12/12/2018 10:53 AM Weight 230 lb / 104.33 kg Height 75 in / 190.5 cm BP 130/52 mmHg MULTI-SYSTEM PHYSICAL EXAMINATION: Constitutional: Well-nourished. No physical deformities. Normally developed. Good grooming. Neck: Neck symmetrical, not swollen. Normal tracheal position. Respiratory: No labored breathing, no use of accessory muscles. Normal breath sounds. Cardiovascular: Regular rate and rhythm. No murmur, no gallop. Normal temperature, normal extremity pulses, no swelling, no varicosities. Lymphatic: No enlargement of neck, axillae, groin. Skin: No paleness, no jaundice, no cyanosis. No lesion, no ulcer, no rash. Neurologic / Psychiatric: Oriented to time, oriented to place, oriented to person. No depression, no anxiety, no agitation. Gastrointestinal: No mass, no tenderness, no rigidity, non obese abdomen. Eyes: Normal conjunctivae. Normal eyelids. Ears, Nose, Mouth, and Throat: Left ear no scars, no lesions, no masses. Right ear no scars, no lesions, no masses. Nose no scars, no lesions, no masses. Normal hearing. Normal lips. Musculoskeletal: Normal gait and station of head and neck. PAST DATA REVIEWED: Source Of History: Patient ASSESSMENT: ICD-10 Details 1 : Malignant neoplasm of overlapping sites of bladder - C67.8 Gross hematuria and bleeding also on blood thinners. Plan For now we will continue with continuous bladder irrigation we will hold all his blood thinners, hopefully with continuous variation will get the bleeding to stop if not he may require surgical intervention. Continue CBI hold all blood thinners antibiotic prophylaxis.
--- NOTE | 2019-01-02 08:28 | PCM.PROGNOTE ---
Patient Problems: Active and Suspected Problems (Last Reviewed 01/02/19 @ 01:30 by Nash London MD) Hematuria, gross (Acute) Subjective: The patient is an 83-year-old male with a past medical history of bladder cancer (status post intravesical BCG and cystectomy?), stage III large B cell lymphoma, thyromegaly with multiple thyroid biopsies negative in the past, hypertension, diabetes mellitus type 2, coronary artery disease, history of CABG, dyslipidemia, history of pulmonary embolism, peripheral vascular disease and obstructive sleep apnea who presented to the emergency department at [facility] on 01/01/2019 complaining of bloody urine. Coughlin catheter was inserted in the emergency department and the patient was started on continuous bladder irrigation. Vital signs at presentation to the emergency room were temp 97.4, blood pressure 206/124, pulse rate 83, respiratory rate 21 and he was 92% saturated on room air. White blood cell count was 6.6 with 78% neutrophils. Hemoglobin was normal at 13.6 and platelets were also normal. BMP was significant for elevated BUN at 32 with a creatinine of 1.67. Creatinine on 12/26/2018 was 1.28. Calcium was high at 10.2, no albumin checked. Patient was admitted to the hospital and continuous bladder irrigation was maintained. Aspirin and Plavix were held. Dr. Phillip was consulted. Dr. Phillip recently in mid December resected recurrent bladder tumors. Pathology was consistent with low-grade papillary multifocal bladder tumor with invasion into the lamina propria. Dr. Phillip recommended continued continuous bladder irrigation and holding all antiplatelet agents. He also recommended antibiotic prophylaxis but did not order an antibiotic. All events of the past 24 hours of been reviewed. Blood pressures are not adequately controlled and have ranged from 173/84 to 206/124 He is 93 to 94% saturated on room air. All lab was personally reviewed. Creatinine is down to 1.32 today from 1.67 at admission. Blood sugar record was reviewed. Calcium today is 9.6. Albumin has been ordered. - Physical Exam General: Alert, Oriented x3, Cooperative, No apparent distress, Well developed, Well nourished HEENT: Atraumatic, PERRLA, EOMI, Normocephalic Oral: Moist Mucosa Neck: Supple Lungs: Clear to auscultation, Normal air movement, No rhonchi, No wheeze, No rales Cardiovascular: Regular rate, Regular Rhythm, Normal S1, Normal S2, No Gallop Abdomen: Bowel Sounds Present, Soft, Non-Distended, Tender - ion the suprapubic area, - - urine in the coughlin bag is pink tinged Extremities: No clubbing, No cyanosis, Edema - of the distal LE's Skin: No rashes, No breakdown Neurological: Cranial nerves II-XII grossly intact, Neuro grossly intact Psych/Mental Status: Normal Affect, Appropriate Vital Signs Temp Pulse Resp BP Pulse Ox 97.9 F 103 H 16 162/86 H 93 01/02/19 05:40 01/02/19 07:00 01/02/19 05:40 01/02/19 05:40 01/02/19 05:40 Oxygen Flow Rate (L/min) 3 Oxygen Delivery Method Room Air Weight: 221 lb 1.978 oz Body Mass Index (BMI) 28.3 Intake and Output for Last 24 Hours 12/31/18 01/01/19 01/02/19 23:59 23:59 23:59 Intake Total 301 / 301 Output Total 1999 4375 / 4375 Balance -1999 / -1999 -4074 / -4074 Laboratory Tests Past 24 Hrs 01/01/19 01/01/19 01/02/19 21:23 21:23 01:45 WBC 6.6 RBC 4.48 L Hgb 13.6 12.8 L Hct 40.7 38.8 L MCV 90.8 MCH 30.4 MCHC 33.4 RDW 15.1 H RDW Differential 48.8 H Plt Count 278 MPV 10.6 Immature Gran % (Auto) 0.600 Neut % (Auto) 77.9 H Lymph % (Auto) 10.5 L [place] % (Auto) 4.1 Eos % (Auto) 6.3 H Baso % (Auto) 0.6 Absolute Neuts (auto) 5.1 Absolute Lymphs (auto) 0.69 L Total Counted Not Reportable Sodium 141 Potassium 4.1 Chloride 109 H Carbon Dioxide 26.0 Anion Gap 6 BUN 32 H Creatinine 1.67 H Estim Creat Clear Calc 40.33 Est GFR (MDRD) Af Amer 51 L Est GFR (MDRD) Non-Af 42 L BUN/Creatinine Ratio 19.2 Glucose 253 H Calcium 10.2 H 01/02/19 01/02/19 05:30 08:15 WBC RBC Hgb Pending Hct Pending MCV MCH MCHC RDW RDW Differential Plt Count MPV Immature Gran % (Auto) Neut % (Auto) Lymph % (Auto) [place] % (Auto) Eos % (Auto) Baso % (Auto) Absolute Neuts (auto) Absolute Lymphs (auto) Total Counted Sodium 145 Potassium 4.1 Chloride 111 H Carbon Dioxide 26.0 Anion Gap 8 BUN 28 H Creatinine 1.32 H Estim Creat Clear Calc 51.03 Est GFR (MDRD) Af Amer 67 Est GFR (MDRD) Non-Af 55 L BUN/Creatinine Ratio 21.2 H Glucose 209 H Calcium 9.6 POC Glucose 01/02/19 01/02/19 01/01/19 05:43 01:19 21:20 POC Glucose 192 H 204 H 271 H Medical Necessity - Tobacco Use Smoking Status: Former smoker Assessment/Plan All Active Problems (Last Reviewed 01/02/19 @ 01:30 by Nash London MD) Hematuria, gross (Acute) Lower urinary tract symptoms (Acute) Impressions 1. Gross hematuria at admission 2. History of recurrent bladder cancer -resected by Dr. Phillip in mid December 3. Stage III large B-cell lymphoma-being treated by Dr. Bradley and recently started chemotherapy 4. Hypertension 5. Diabetes mellitus type 2 6. Coronary artery disease 7. History of CABG 8. Dyslipidemia 9. History of pulmonary embolus 10. Peripheral vascular disease 12. Obstructive sleep apnea 13. Normochromic normocytic anemia-stable Add B&O suppository serial HH Continue to hold the ASA and the Plavix Recheck the lab in the AM Continue continuous bladder irrigation D/W Dr. Phillip SCD's and MARY larry for DVT prophylaxis Code Visit Inpatient E&M: 20646 Subs Hosp L2
[2019-01-02 08:35] LABS: Hematocrit 40.4 % (40-54); Hemoglobin 13.4 g/dl (13.0-16.5)
[2019-01-02 08:53] LABS: AST(SGOT) 21 U/L (15-37); Alanine Aminotransfer ALT/SGPT 18 U/L (16-61); Alkaline Phosphatase 53 U/L (45-117); Bilirubin, Direct 0.11 mg/dL (0.00-0.30); Magnesium 1.3 mg/dL (1.6-2.6); Phosphorus 3.6 mg/dL (2.5-4.9)
[2019-01-02 09:05] LABS: Prothrombin Time (Protime)PT. 12.7 SECONDS (11.7-14.9)
[2019-01-02 09:06] LABS: Partial Thromboplast Time 36.4 Seconds (24.1-36.2)
[2019-01-02] MEDS: Cefazolin 1 GM/50 ML BAG IV ×3 (09:09→21:57)
--- NOTE | 2019-01-02 10:05 | CASEMGMT ---
RN CM Assessment Presentation: Gross Hematuria with urinary retention. 3 way coughlin placed with irrigation. Hx of bladder cancer, Urology consult. Intro role of CM and purpose of RN CM assessment to patient, and daughter. Demographics, PCP and Pharmacy verified. Pt states he has been doing well at home with help of family until this admission. Having bladder spasms- physician is aware and medication ordered. states I do alot of running for him, but also states they have no needs at home. Currently being treated by Dr. Kunz for lymphoma. -RN CM asked physician re: Palliative Care- declined need for this @ this time. PCP: Dr. Mcfarland Specialists: Dr. Kunz, oncologist, Dr. Phillip, Urologist Preferred Pharmacy: [facility]. Insurance: [facility] Prescription Benefit: yes LNOK: Raisa Living Arrangements: Lives independently in one story home, 3 steps into home. Pt states he has been generally independent in ADL. assists if needed and does most cooking, home care. No care needs identified @ this time. Transportation: pt drives, daughter Odilia drives to chemo treatments. DME: walker, cane- pt states he does not use HHC: none. Denies need at this time. Patient DC goals: Home DC PLAN: anticipate Home. PT/OT evaluations are pending. RN DAVY to assist if needs arise. Evaristo MARTINEZ RN ACM
[2019-01-02] MEDS: hydrALAZINE 20 MG/ML Vial 10 MG IV (10:26)
[2019-01-02] MEDS: oxyCODONE 5 MG Tablet PO ×3 (10:26→18:55)
[2019-01-02 12:25] LABS: Bedside Glucose 234 mg/dL (70-110)
--- NOTE | 2019-01-02 12:54 | CASEMGMT ---
SARAHY BHATTI NOTE: PT/OT notes reviewed. PT recommends further therapy. SARAHY CM to room. Intro self to pt and . Discussed therapy recommendations and options for Out-pt therapy. Pt declines any additional therapy. Pt states I hate appts anymore and states he stays active and does not want to go anywhere for therapy, stating i'd rather just do it myself. Pt and made aware if he changes his mind in the future, to talk to his PCP and can have therapy set up through PCP. Pt and voice understanding. Lizzy CHENGN SARAHY CM
[2019-01-02 14:36] LABS: Hematocrit 36.9 % (40-54); Hemoglobin 12.1 g/dl (13.0-16.5)
[2019-01-02 16:16] LABS: Bedside Glucose 148 mg/dL (70-110)
[2019-01-02 20:43] LABS: Hematocrit 35.8 % (40-54); Hemoglobin 11.7 g/dl (13.0-16.5)
[2019-01-02] MEDS: Atorvastatin Calcium 10 MG Tablet 5 MG PO (21:57)
[2019-01-02] MEDS: Tamsulosin HCl 0.4 MG Capsule PO (21:58)
[2019-01-02 22:06] LABS: Bedside Glucose 175 mg/dL (70-110)
[2019-01-03] MEDS: Magnesium Sulfate 4gm/100mL 4 GM/100 ML IV.SOLN. IV (02:02)
[2019-01-03 04:00] VITALS: BP 97/50; PULSE 86; RESP 16; TEMP 36.9; O2SAT 96
[2019-01-03] MEDS: 0.9% NaCl VAD Flush IV ×5 (05:04→13:22)
[2019-01-03] MEDS: oxyCODONE 5 MG Tablet PO ×2 (05:12→13:21)
[2019-01-03 05:23] LABS: Absolute Lymphocyte Count 0.26 X10^3/ul (0.83-4.51); Absolute Neutrophil Count 5.7 X10^3/uL (2.0-7.7); Basophil# 0.06 X10^3/uL; Basophil% 0.8 % (0-1); Eosinophil# 0.24 X10^3/uL; Eosinophils% 3.3 % (0-5); Hematocrit 35.7 % (40-54); Hemoglobin 11.6 g/dl (13.0-16.5); Lymphocyte # 0.26 X10^3/ul (4.0); Lymphocyte % 3.6 % (19-41); Mean Corp Hgb Conc 32.5 g/gl (32-36); Mean Corpuscular Volume 92.2 fL (80-94); Mean Platelet Vol. 10.2 fl (6.2-12.0); Monocyte# 0.84 X10^3/uL; Monocyte% 11.7 % (0-10); Neutrophil # 5.74 X10^3/uL (2.7-7.7); Neutrophil % 79.8 % (47-70); Platelet Count 248 K/mm3 (150-450); RBC Distribution Width CV 15.6 % (11.6-14.6); RBC Distribution Width SD 50.1 fl (35.1-43.9); Red Blood Count 3.87 M/mm3 (4.6-6.2); White Blood Count 7.2 K/mm3 (4.4-11.0)
[2019-01-03 05:24] LABS: Differential Indicated SCAN CRITERIA MET; POSITIVE COUNT NO; POSITIVE DIFFERENTIAL YES; POSITIVE MORPHOLOGY NO
[2019-01-03 05:33] LABS: Anion Gap 10 (5-15); BUN 32 mg/dL (7-18); Calcium,Total 8.9 mg/dL (8.5-10.1); Chloride 107 mmol/L (98-107); EST Glomerular Filtration Rate 44 mL/min (>60); Est Glom Filt Rate - Afr Amer 54 mL/min (>60); Glucose 190 mg/dL (74-106); Potassium 3.8 mmol/L (3.5-5.1); Sodium Level 143 mmol/L (136-145)
[2019-01-03] MEDS: Cefazolin 1 GM/50 ML BAG IV ×3 (06:00→22:37)
[2019-01-03] MEDS: Insulin Lispro 100 UNIT/ML INSULN.PEN SC ×4 (06:41→22:40)
[2019-01-03 06:45] LABS: Bedside Glucose 185 mg/dL (70-110)
--- NOTE | 2019-01-03 08:20 | PN_ITS ---
Patient Problems: Active and Suspected Problems (Last Reviewed 01/02/19 @ 01:30 by Nash London MD) Hematuria, gross (Acute) Subjective: Bleeding has stopped we can stop CBI the urine is clear continue with catheter drainage - Physical Exam General: Alert, Oriented x3, Cooperative HEENT: Atraumatic, PERRLA, EOMI, Normocephalic Neck: Supple, No JVD, Negative Carotid Bruits Lungs: Clear to auscultation, Normal air movement Cardiovascular: Regular rate, No murmurs Abdomen: Bowel Sounds Present, Soft, Non Tender Extremities: No edema, Capillary Refill Less than 3 Seconds Skin: No rashes, No breakdown Musculoskeletal: No Tenderness to Palpation of Joints or Extremities Neurological: Cranial nerves II-XII grossly intact Psych/Mental Status: Normal Affect, Appropriate Vital Signs Temp Pulse Resp BP Pulse Ox 98.4 F 86 16 97/50 L 96 01/03/19 04:00 01/03/19 04:00 01/03/19 04:00 01/03/19 04:00 01/03/19 04:00 Oxygen Flow Rate (L/min) 2 Oxygen Delivery Method Nasal Cannula Weight: 100.3 kg Body Mass Index (BMI) 28.3 Intake and Output for Last 24 Hours 01/01/19 01/02/19 01/03/19 23:59 23:59 23:59 Intake Total 2675.2 / 2675.2 Output Total 1999 6525 / 6525 375 / 375 Balance -1999 / -3849.8 / -3849.8 -375 / -375 Laboratory Tests Past 24 Hrs 01/02/19 01/02/19 01/02/19 05:30 08:00 08:15 WBC RBC Hgb 13.4 Hct 40.4 MCV MCH MCHC RDW RDW Differential Plt Count MPV Immature Gran % (Auto) Neut % (Auto) Lymph % (Auto) [place] % (Auto) Eos % (Auto) Baso % (Auto) Absolute Neuts (auto) Absolute Lymphs (auto) Total Counted PT 12.7 INR 1.0 APTT 36.4 H Sodium Potassium Chloride Carbon Dioxide Anion Gap BUN Creatinine Estim Creat Clear Calc Est GFR (MDRD) Af Amer Est GFR (MDRD) Non-Af BUN/Creatinine Ratio Glucose Calcium Phosphorus 3.6 Magnesium 1.3 L Total Bilirubin 0.70 Direct Bilirubin 0.11 AST 21 ALT 18 Alkaline Phosphatase 53 Total Protein 6.0 L Albumin 3.0 L Globulin 3.0 01/02/19 01/02/19 01/03/19 14:25 20:30 05:00 WBC 7.2 RBC 3.87 L Hgb 12.1 L 11.7 L 11.6 L Hct 36.9 L 35.8 L 35.7 L MCV 92.2 MCH 30.0 MCHC 32.5 RDW 15.6 H RDW Differential 50.1 H Plt Count 248 MPV 10.2 Immature Gran % (Auto) 0.800 Neut % (Auto) 79.8 H Lymph % (Auto) 3.6 L [place] % (Auto) 11.7 H Eos % (Auto) 3.3 Baso % (Auto) 0.8 Absolute Neuts (auto) 5.7 Absolute Lymphs (auto) 0.26 L Total Counted Not Reportable PT INR APTT Sodium Potassium Chloride Carbon Dioxide Anion Gap BUN Creatinine Estim Creat Clear Calc Est GFR (MDRD) Af Amer Est GFR (MDRD) Non-Af BUN/Creatinine Ratio Glucose Calcium Phosphorus Magnesium Total Bilirubin Direct Bilirubin AST ALT Alkaline Phosphatase Total Protein Albumin Globulin 01/03/19 05:00 WBC RBC Hgb Hct MCV MCH MCHC RDW RDW Differential Plt Count MPV Immature Gran % (Auto) Neut % (Auto) Lymph % (Auto) [place] % (Auto) Eos % (Auto) Baso % (Auto) Absolute Neuts (auto) Absolute Lymphs (auto) Total Counted PT INR APTT Sodium 143 Potassium 3.8 Chloride 107 Carbon Dioxide 26.0 Anion Gap 10 BUN 32 H Creatinine 1.60 H Estim Creat Clear Calc 42.10 Est GFR (MDRD) Af Amer 54 L Est GFR (MDRD) Non-Af 44 L BUN/Creatinine Ratio 20.0 Glucose 190 H Calcium 8.9 Phosphorus Magnesium Total Bilirubin Direct Bilirubin AST ALT Alkaline Phosphatase Total Protein Albumin Globulin POC Glucose 01/03/19 01/02/19 01/02/19 06:37 21:56 16:02 POC Glucose 185 H 175 H 148 H 01/02/19 12:15 POC Glucose 234 H Medical Necessity - Tobacco Use Smoking Status: Former smoker Assessment/Plan All Active Problems (Last Reviewed 01/02/19 @ 01:30 by Nash London MD) Hematuria, gross (Acute) History of heart bypass surgery (Acute) history right leg bypass (Acute) History of tonsillectomy and adenoidectomy (Acute) History of left cataract extraction (Acute) History of carotid endarterectomy (Acute) history of surgery for bladder tumors (Acute) PVD (peripheral vascular disease) (Acute) Coronary artery disease (Acute) History of pulmonary thrombosis (Acute) Diabetes (Acute) High cholesterol (Acute) Sleep apnea (Acute) Bladder cancer (Acute) Hx of lymph node biopsy (Acute) H/O hernia repair (Acute) Encounter for adjustment or management of vascular access device (Acute) Bladder cancer (Acute) Encounter for education (Acute) Leukocytosis (Acute) Lower urinary tract symptoms (Acute) Plan to stop CBI today, the urine stays clear than tomorrow if I can send him home, I might remove the catheter for voiding trial.
[2019-01-03 09:19] VITALS: BP 97/52; PULSE 94; RESP 16; TEMP 36.6; O2SAT 95
[2019-01-03 11:26] LABS: Bedside Glucose 228 mg/dL (70-110)
[2019-01-03 15:20] VITALS: BP 130/71; PULSE 89; RESP 18; TEMP 36.7; O2SAT 92
--- NOTE | 2019-01-03 15:32 | PCM.PROGNOTE ---
Patient Problems: Active and Suspected Problems (Last Reviewed 01/02/19 @ 01:30 by Nash London MD) Hematuria, gross (Acute) Subjective: Continues to complain of pain in the suprapubic area. The B&O suppositories did not help. The pain is episodic and consistent with spasms. Bladder irrigation was [id number] this AM and the urine has been tea colored throughout the day. Small very small clots but, the urine is flowing well. Denies nausea. - Physical Exam General: Alert, Oriented x3, Cooperative Oral: Moist Mucosa Lungs: Clear to auscultation Cardiovascular: Regular rate, Regular Rhythm, Normal S1, Normal S2, No Gallop Abdomen: Bowel Sounds Present, Soft, Non-Distended, Tender - in the suprapubic area intermittently when having a spasm Extremities: No edema Skin: No rashes Neurological: Cranial nerves II-XII grossly intact, Neuro grossly intact Psych/Mental Status: Normal Affect, Appropriate Vital Signs Temp Pulse Resp BP Pulse Ox 98.1 F 89 18 130/71 H 92 01/03/19 15:20 01/03/19 15:20 01/03/19 15:20 01/03/19 15:20 01/03/19 15:20 Oxygen Flow Rate (L/min) 2 Oxygen Delivery Method Room Air Weight: 221 lb 1.978 oz Body Mass Index (BMI) 28.3 Intake and Output for Last 24 Hours 01/01/19 01/02/19 01/03/19 23:59 23:59 23:59 Intake Total 2675.2 / 2675.2 562 / 562 Output Total 1999 6525 / 6525 575 / 575 Balance -1999 / -3849.8 / -3849.8 - -13 Laboratory Tests Past 24 Hrs 01/02/19 01/03/19 01/03/19 20:30 05:00 05:00 WBC 7.2 RBC 3.87 L Hgb 11.7 L 11.6 L Hct 35.8 L 35.7 L MCV 92.2 MCH 30.0 MCHC 32.5 RDW 15.6 H RDW Differential 50.1 H Plt Count 248 MPV 10.2 Immature Gran % (Auto) 0.800 Neut % (Auto) 79.8 H Lymph % (Auto) 3.[address] [place] % (Auto) 11.7 H Eos % (Auto) 3.3 Baso % (Auto) 0.8 Absolute Neuts (auto) 5.7 Absolute Lymphs (auto) 0.26 L Total Counted Not Reportable Sodium 143 Potassium 3.8 Chloride 107 Carbon Dioxide 26.0 Anion Gap 10 BUN 32 H Creatinine 1.60 H Estim Creat Clear Calc 42.10 Est GFR (MDRD) Af Amer 54 L Est GFR (MDRD) Non-Af 44 L BUN/Creatinine Ratio 20.0 Glucose 190 H Calcium 8.9 POC Glucose 01/03/19 01/03/19 01/02/19 11:13 06:37 21:56 POC Glucose 228 H 185 H 175 H 01/02/19 16:02 POC Glucose 148 H Medical Necessity - Tobacco Use Smoking Status: Former smoker Assessment/Plan All Active Problems (Last Reviewed 01/02/19 @ 01:30 by Nash London MD) Hematuria, gross (Acute) History of heart bypass surgery (Acute) history right leg bypass (Acute) History of tonsillectomy and adenoidectomy (Acute) History of left cataract extraction (Acute) History of carotid endarterectomy (Acute) history of surgery for bladder tumors (Acute) PVD (peripheral vascular disease) (Acute) Coronary artery disease (Acute) History of pulmonary thrombosis (Acute) Diabetes (Acute) High cholesterol (Acute) Sleep apnea (Acute) Bladder cancer (Acute) Hx of lymph node biopsy (Acute) H/O hernia repair (Acute) Encounter for adjustment or management of vascular access device (Acute) Bladder cancer (Acute) Encounter for education (Acute) Leukocytosis (Acute) Lower urinary tract symptoms (Acute) Impressions 1. Gross hematuria at admission 2. History of recurrent bladder cancer -resected by Dr. Phillip in mid December 3. Stage III large B-cell lymphoma-being treated by Dr. Bradley and recently started chemotherapy 4. Hypertension 5. Diabetes mellitus type 2 6. Coronary artery disease 7. History of CABG 8. Dyslipidemia 9. History of pulmonary embolus 10. Peripheral vascular disease 12. Obstructive sleep apnea 13. Normochromic normocytic anemia-stable Add Oxybutynin DC B&O suppositories Recheck BMP and H&H in the a.m. Code Visit Inpatient E&M: 48545 Subs Hosp L2
[2019-01-03 16:26] LABS: Bedside Glucose 210 mg/dL (70-110)
[2019-01-03] MEDS: Oxybutynin 5 MG Tablet 2.5 MG PO ×2 (17:38→22:38)
[2019-01-03 20:25] VITALS: BP 118/60; PULSE 97; RESP 18; TEMP 36.8; O2SAT 95
[2019-01-03] MEDS: Atorvastatin Calcium 10 MG Tablet 5 MG PO (22:38)
[2019-01-03] MEDS: Tamsulosin HCl 0.4 MG Capsule PO (22:38)
[2019-01-03 22:51] LABS: Bedside Glucose 193 mg/dL (70-110)
[2019-01-04 02:25] VITALS: BP 91/45; PULSE 95; RESP 16; TEMP 37; O2SAT 94
[2019-01-04 06:33] LABS: Hematocrit 31.6 % (40-54); Hemoglobin 10.3 g/dl (13.0-16.5)
[2019-01-04] MEDS: Insulin Lispro 100 UNIT/ML INSULN.PEN SC ×3 (06:34→17:37)
[2019-01-04] MEDS: Cefazolin 1 GM/50 ML BAG IV ×2 (06:35→13:33)
[2019-01-04 06:46] LABS: Bedside Glucose 166 mg/dL (70-110)
[2019-01-04 06:56] LABS: Anion Gap 8 (5-15); BUN 37 mg/dL (7-18); BUN/Creat Ratio 24.5 RATIO (10-20); Calcium,Total 8.4 mg/dL (8.5-10.1); Chloride 103 mmol/L (98-107); Creatinine, Serum 1.51 mg/dL (0.70-1.30); EST Glomerular Filtration Rate 47 mL/min (>60); Est Glom Filt Rate - Afr Amer 57 mL/min (>60); Estimated Creatinine Clearance 44.61 ml/min; Glucose 167 mg/dL (74-106); Potassium 3.8 mmol/L (3.5-5.1); Sodium Level 136 mmol/L (136-145)
[2019-01-04 08:00] VITALS: BP 99/56; PULSE 90; RESP 16; TEMP 36.4; O2SAT 99
--- NOTE | 2019-01-04 09:23 | PCM.PN.BLA ---
Progress Note urine is clear coughlin ordered to be removed he can go home after voids today.
[2019-01-04] MEDS: Glimepiride 1 MG Tablet PO (10:04)
[2019-01-04] MEDS: Oxybutynin 5 MG Tablet 2.5 MG PO (10:05)
[2019-01-04 11:26] LABS: Bedside Glucose 177 mg/dL (70-110)
[2019-01-04] MEDS: 0.9% NaCl VAD Flush IV ×2 (13:33→17:50)
[2019-01-04 14:36] VITALS: BP 125/57; PULSE 94; RESP 20; TEMP 36.3; O2SAT 92
[2019-01-04 16:36] LABS: Bedside Glucose 165 mg/dL (70-110)
--- NOTE | 2019-01-04 17:16 | PCM.DC ---
- Discharge Diagnoses Current Active Problems: Current Active and Chronic Problems (Last Reviewed 01/02/19 @ 01:30 by Nash London MD) Hematuria, gross (Acute) You will use the following diet at home:: Calorie/Carbohydrate Controlled (specify 1200, 1400, etc), Cardiac Your food should be the consistency of: Regular Your liquids should be the consistency of: Regular/Thin Discharge Activity: Return to Normal Activity Call your doctor if you observe: Fever of 101 or Higher, Inability to urinate, Shortness of breath, Dizziness, Fainting spells, Swelling in the ankles, Chest pain, Increased palpitations (irregular heartbeat), Uncontrolled pain Additional Instructions: Since you have a known history of coronary artery disease and you have had stents and bypass surgery I think it would be an excellent idea for you to follow nup with a internet salesperson......there are 4 cardiologists who work at this hospital and I am going to give you the phone number to schedule an appt. I am stopping the plavix(CLopidogrel) but, you will continue to take a baby aspirin daily........this will decrease the risk of rebleeding. Pending Tests on Discharge: none Allergies/Adverse Reactions: Allergies No Known Allergies Allergy (Verified 01/01/19 21:25) Medications to take at Discharge lisinopril 20 mg tablet 20 mg PO QHS tab 04/05/18 lovastatin 40 mg tablet 20 mg PO QHS 04/05/18 metformin 1,000 mg tablet 1,000 mg PO BID 04/05/18 Cholecalciferol (Vitamin D3) [Vitamin D3] 2,000 unit PO BID 04/10/18 Cinnamon Bark [Cinnamon] 1,000 mg PO BID 04/10/18 [place]-3 Fatty Acids/Fish Oil [Fish Oil 1,000 mg Capsule] 1 ea PO BID 04/10/18 Tamsulosin HCl [Flomax] 0.4 mg PO QHS 09/08/18 Metoprolol Tartrate [Lopressor (beta richard)] 50 mg PO BID 09/19/18 Aspirin 81 mg PO DAILY 01/01/19 Primary Care Physician: Livan Mcfarland MD [Primary Care Provider] - Please follow up with your Primary Care Physician in: 1-2 weeks Test Results: Test results from this visit will be discussed in further detail at your follow-up appointment, if applicable. Please Follow Up With: [facility] When: within the next few weeks. Please Follow Up With: Joe Phillip MD When: as previously scheduled Proposed Discharge Date: 01/04/19
--- NOTE | 2019-01-04 17:27 | PCM.DC.SUM ---
Discharge Date and Diagnosis - Problem List Patient Problems: Active and Suspected Problems (Last Reviewed 01/02/19 @ 01:30 by Nash London MD) Hematuria, gross (Acute) Date of Admission: 01/01/19 Date of Discharge: 01/04/19 - Primary Discharge Diagnosis Active and Suspected Problems (Last Reviewed 01/02/19 @ 01:30 by Nash London MD) Hematuria, gross (Acute) Acute anemia secondary to blood loss from hematuria - Secondary Discharge Diagnosis Chronic Problems (Last Reviewed 01/02/19 @ 01:30 by Nash London MD) PVD (peripheral vascular disease) (Chronic) Coronary artery disease (Chronic) History of pulmonary thrombosis (Chronic) High cholesterol (Chronic) Sleep apnea (Chronic) Bladder cancer (Chronic) with recurrence in December 2018 Hypertension Diabetes mellitus type 2 Right inguinal hernia (Chronic) 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) Thyromegaly (Chronic) - multiple negative biopsies Stage III Large B cell lymphoma (Chronic) History of heart bypass surgery (Chronic) history right leg bypass (Chronic) History of tonsillectomy and adenoidectomy (Chronic) History of left cataract extraction (Chronic) History of carotid endarterectomy (Chronic) history of surgery for bladder tumors (Chronic) Hx of lymph node biopsy (Chronic) H/O hernia repair (Chronic)-November 2018 Hospital Course and Treatment Imaging Results: Laboratory Results - last 24 hr 01/03/19 01/04/19 01/04/19 22:35 06:05 06:05 Hgb 10.3 L Hct 31.6 L Sodium 136 Potassium 3.8 Chloride 103 Carbon Dioxide 25.0 Anion Gap 8 BUN 37 H Creatinine 1.51 H Estim Creat Clear Calc 44.61 Est GFR (MDRD) Af Amer 57 L Est GFR (MDRD) Non-Af 47 L BUN/Creatinine Ratio 24.5 H Glucose 167 H Calcium 8.4 L POC Glucose 193 H 01/04/19 01/04/19 01/04/19 06:33 11:19 16:29 Hgb Hct Sodium Potassium Chloride Carbon Dioxide Anion Gap BUN Creatinine Estim Creat Clear Calc Est GFR (MDRD) Af Amer Est GFR (MDRD) Non-Af BUN/Creatinine Ratio Glucose Calcium POC Glucose [address] H [address] Caleb Phillip-neurology Operations: None Procedures: None Summary of Care Provided: The patient is an 83-year-old male with a past medical history of bladder cancer (status post intravesical BCG and cystectomy?), stage III large B cell lymphoma, thyromegaly with multiple negative negative thyroid biopsies in the past, hypertension, diabetes mellitus type 2, coronary artery disease, history of PTCA/ARCHANA and CABG, dyslipidemia, history of pulmonary embolism, peripheral vascular disease (history of bypass surgery) and obstructive sleep apnea who presented to the emergency department at [facility] on 01/01/2019 complaining of bloody urine. A 3 way Ochoa catheter was inserted in the emergency department and the patient was started on continuous bladder irrigation. Vital signs at presentation to the emergency room were temp 97.4, blood pressure 206/124, pulse rate 83, respiratory rate 21 and he was 92% saturated on room air. White blood cell count was 6.6 with 78% neutrophils. Hemoglobin was normal at 13.6 and platelets were also normal. BMP was significant for elevated BUN at 32 with a creatinine of 1.67. Creatinine on 12/26/2018 was 1.28. Calcium was high at 10.2, no albumin checked. Patient was admitted to the hospital and continuous bladder irrigation was maintained. Aspirin and Plavix were held. Dr. Phillip was consulted. Dr. Phillip recently in mid December resected recurrent bladder tumors. Pathology was consistent with low-grade papillary multifocal bladder tumor with invasion into the lamina propria. Dr. Phillip recommended continued continuous bladder irrigation and holding all antiplatelet agents. He also recommended antibiotic prophylaxis and the pt was started on Ancef. Serial H/H were obtained. The hemoglobin dropped from 13.6 at admission to 10.3 on the date of discharge. Continuous bladder irrigation was discontinued on 01/03/2019 and the following morning his urine was clear. The Ochoa catheter was discontinued and the patient was able to void with no significant residual. He is having some urge incontinence. He was discharged home and Plavix was discontinued. I am a little concerned that he was at one time on 2 antiplatelet drugs and also Eliquis which was started for VTE. I do not know if the VTE was related to the bladder CA and the Lymphoma, provoked or unprovoked. He has not had a stent in many years and has never had a stroke so he does not need 2 antiplatelet agents. He does not see a business administration instructor now and I referred him to [facility] for follow up. He will follow up with Dr. Mcfarland in 1-2 weeks and with Cardiology within the next few weeks. He will continue to follow up with Dr. Kunz for tx of Lymphoma. PHYSICAL EXAM: GENERAL: alert, oriented X 3, Cooperative, NAD ORAL: moist mucosa, no mucosal lesions NECK: No JVD, supple, trachea midline LUNGS: CTA, symmetric chest expansion HEART: RRR, Normal S1 and S2, no rub, no gallop ABDOMEN: soft, NT, ND, BS present, no guarding with palpation EXTREMITIES: no edema, no cyanosis, no calf tenderness SKIN: No rashes, no breakdown, dry skin over the distal lower extremities NEUROLOGIC: no focal neurologic deficits PSYCH: appropriate, normal affect, pleasant This note was generated with [employer] dictation software. It may contain incorrect words, spelling, and punctuation that were not noted in checking the note before signing. Patient Problems: Active and Suspected Problems (Last Reviewed 01/02/19 @ 01:30 by Nash London MD) Hematuria, gross (Acute) - Physical Exam Vital Signs Temp Pulse Resp BP Pulse Ox 97.4 F L 94 20 H 125/57 H 92 01/04/19 14:36 01/04/19 14:36 01/04/19 14:36 01/04/19 14:36 01/04/19 14:36 Oxygen Flow Rate (L/min) 2 Oxygen Delivery Method Room Air Weight: 221 lb 1.978 oz Body Mass Index (BMI) 28.3 Intake and Output for Last 24 Hours 01/02/19 01/03/19 01/04/19 23:59 23:59 23:59 Intake Total 2675.2 / 2675.2 1212 / 1212 1583.2 / 1583.2 Output Total 6525 / 6525 825 / 825 800 / 800 Balance -3849.8 / -3849.8 387 / 387 783.2 / 783.2 Laboratory Tests Past 24 Hrs 01/04/19 01/04/19 06:05 06:05 Hgb 10.3 L Hct 31.6 L Sodium 136 Potassium 3.8 Chloride 103 Carbon Dioxide 25.0 Anion Gap 8 BUN 37 H Creatinine 1.51 H Estim Creat Clear Calc 44.61 Est GFR (MDRD) Af Amer 57 L Est GFR (MDRD) Non-Af 47 L BUN/Creatinine Ratio 24.5 H Glucose 167 H Calcium 8.4 L POC Glucose 01/04/19 01/04/19 01/04/19 16:29 11:19 06:33 POC Glucose 165 H 177 H 166 H 01/03/19 22:35 POC Glucose 193 H Discharge Activity: Return to Normal Activity Call your doctor if you observe: Fever of 101 or Higher, Inability to urinate, Shortness of breath, Dizziness, Fainting spells, Swelling in the ankles, Chest pain, Increased palpitations (irregular heartbeat), Uncontrolled pain Home Medications: Medications to take at Discharge lisinopril 20 mg tablet 20 mg PO QHS tab 04/05/18 lovastatin 40 mg tablet 20 mg PO QHS 04/05/18 metformin 1,000 mg tablet 1,000 mg PO BID 04/05/18 Cholecalciferol (Vitamin D3) [Vitamin D3] 2,000 unit PO BID 04/10/18 Cinnamon Bark [Cinnamon] 1,000 mg PO BID 04/10/18 [place]-3 Fatty Acids/Fish Oil [Fish Oil 1,000 mg Capsule] 1 ea PO BID 04/10/18 Tamsulosin HCl [Flomax] 0.4 mg PO QHS 09/08/18 Metoprolol Tartrate [Lopressor (beta richard)] 50 mg PO BID 09/19/18 Aspirin 81 mg PO DAILY 01/01/19 Primary Care Physician: Livan Mcfarland MD [Primary Care Provider] - Please follow up with your Primary Care Physician in: 1-2 weeks Please Follow Up With: [facility] When: within the next few weeks. Please Follow Up With: Joe Phillip MD When: as previously scheduled Disposition: Home Minutes spent on discharge:: 30 Patient Condition:: Stable Medical Necessity - Tobacco Use Smoking Status: Former smoker Tobacco Use: Non-smoker Meaningful Use Info Meaningful Use Diagnoses (Choose all that apply): None applicable Code Visit Inpatient E&M: 76143 Disch Hosp
[2019-01-04 17:58] VITALS: BP 102/57; PULSE 92; RESP 18; TEMP 36.7; O2SAT 92
--- NOTE | 2019-01-05 14:34 | CASEMGMT ---
RN DAVY RAMIREZ PHONE CALL DC DATE: 01/04/19 DC Disposition: Home Diagnosis on Discharge: Hematuria LACE/STRATA: 04/05 Intro role of CM to patient's via phone. States pt is doing well. F/U appts made today and will assist pt to get to appts. No questions re: prescriptions or instructions. no care improvement suggestions given at this time. Evaristo CHENGN RN ACM
== END 2019-01-04 17:57 | disposition home or self-care (01) | DRG 687 ==
LOC: ED 22:33 → PCU 23:54
PROVIDERS: Admitting Provider Hospitalist; Emergency Provider Emergency Medicine; Family Provider Family Medicine; PCP Family Medicine; Referring Provider Hospitalist; Visit Provider Internal Medicine
DX: C67.8 Malignant neoplasm of overlapping sites of bladder (principal); C85.10 Unspecified B-cell lymphoma, unspecified site; D62 Acute posthemorrhagic anemia; N17.9 Acute kidney failure, unspecified; R31.0 Gross hematuria; G47.33 Obstructive sleep apnea (adult) (pediatric); E78.5 Hyperlipidemia, unspecified; I25.10 Atherosclerotic heart disease of native coronary artery without angina pectoris; I10 Essential (primary) hypertension; E11.9 Type 2 diabetes mellitus without complications; Z87.891 Personal history of nicotine dependence; Z95.1 Presence of aortocoronary bypass graft; Z86.711 Personal history of pulmonary embolism; I73.9 Peripheral vascular disease, unspecified; Z79.84 Long term (current) use of oral hypoglycemic drugs; I16.0 Hypertensive urgency; R33.9 Retention of urine, unspecified
CPT/HCPCS: 36591; 80048; 80076; 82962; 83735; 84100; 85014; 85018; 85025; 85610; 85730; 93005; 97162; 97166; 97530; 97802; 99285; J7030; A4216

== ENCOUNTER → 2019-01-10 15:29 | Outpatient (CLI) | payer MEDICARE, OTHER, SELFPAY ==
[2019-01-10 13:30] VITALS: BMI 29.1
--- NOTE | 2019-01-10 15:35 | CT_ITS ---
STUDY: CTA CHEST REASON FOR EXAM: Male, 83 years old. Shortness of breath. Lymphoma. Recent chemotherapy. RADIATION DOSAGE (If Supplied By Facility): CTDIvol = ( 14.56 ) mGy, DLP = ( 806.66 ) mGycm TECHNIQUE: The examination was performed with the intravenous administration of 100 IV Isovue 370. Post-processing of the angiographic images was performed, with multiplanar reformation and 3D reconstruction. Individualized dose optimization techniques were used for this CT. COMPARISON: December 25, 2018. FINDINGS: There is a port on the right extending to the superior vena cava. There is 4.0 cm left thyroid mass. There are moderate filling defects of the bilateral upper and lower lung pulmonary arteries consistent with pulmonary embolism. There is reflux of contrast into the inferior vena cava consistent with heart strain. There is atherosclerotic calcification of the aortic arch with tortuosity. There is no demonstrated aortic dissection. Sternal cerclage wires are present from a prior sternotomy. There are calcified mediastinal lymph nodes. There are calcified right hilar lymph nodes. Normal visualized trachea and bronchi. The lungs are well expanded. There is emphysema. There is right upper lung granuloma. There are patchy groundglass and interstitial increased opacities of the bilateral lungs . Normal pleura. There is stable 2.3 cm left axillary collection. There are axillary lymph nodes with improvement compared to the prior exam. There are degenerative changes of thoracic spine. There is splenic granulomata. There is left renal cyst. CT/CTA Chest W/WO Contrast IMPRESSION: Abnormal CTA chest examination, with bilateral pulmonary embolism. N.B. : The above information has been verbally conveyed by Atul Moctezuma MD to Annemarie Craig NP, on 01/10/2019 16:43:27 (ET). Electronically Signed: Atul Moctezuma MD at 16:24 EDT , Service support ,
== END ==
PROVIDERS: Family Provider Family Medicine; PCP Family Medicine; Referring Provider Nurse Practitioner Family; Visit Provider Nurse Practitioner Family
DX: R06.02 Shortness of breath (principal); C85.90 Non-Hodgkin lymphoma, unspecified, unspecified site
CPT/HCPCS: 71275; Q9967

== ENCOUNTER 2019-01-10 17:05 | Inpatient (IN) | payer MEDICARE, OTHER, SELFPAY ==
[2019-01-10] VITALS (9 sets, daily range): BP systolic 160–183; BP diastolic 79–86; PULSE 77–94; RESP 15–18; TEMP 36.4–36.6; O2SAT 93–100; BMI 29.1; BMI 29.5; BMI 27.9
--- NOTE | 2019-01-10 17:27 | EKG12_ITS ---
Test Reason : SOB Blood Pressure : / mmHG Vent. Rate : 082 BPM Atrial Rate : 082 BPM P-R Int : 190 ms QRS Dur : 116 ms QT Int : 412 ms P-R-T Axes : 061 -49 -44 degrees QTc Int : 481 ms Normal sinus rhythm Left anterior fascicular block Left ventricular hypertrophy with QRS widening Nonspecific ST and T wave abnormality Prolonged QT Abnormal ECG Confirmed by SHERYL MARES, ANNETTA ([id number]), map editor MHEDI ARAUJO ([id number]) on 01/12/2019 12:28:51 PM Referred By: Confirmed By:CARLOS SAUCEDO MD
--- NOTE | 2019-01-10 18:19 | ED.VISSUMM ---
- ER Visit Summary Date of Service: 01/10/19 Chief Complaint: Bilateral PE History of Present Illness: The patient is a 83 M presenting with abnormal CTA results. Patient has a history of bladder cancer and B-cell lymphoma. He is treated by Dr. Kunz. He had a recent admission 01/01- 01/04 for hematuria. At that time his Plavix was stopped. On Tuesday he developed exertional dyspnea. He denies chest pain. Denies fever. His last chemo was 12/26/2018. He has a history of previous DVT/PE. Outpatient CTA chest today showed bilateral PE and was advised to come to the ED for admission. Physical Examination: Vitals are stable. Patient is afebrile. Pulse ox 95% on nasal cannula. Alert no acute distress. HEENT exam is unremarkable. Neck is supple. Lungs are clear and equal bilaterally. Heart is regular rate and rhythm. Abdomen is soft nontender nondistended. Extremities are unremarkable. Skin is warm and dry. No focal neurologic deficit. Remainder of exam is unremarkable. Emergency Department Course and Treatment: CBC normal except for hemoglobin 10.8. Chemistries normal except creatinine 1.33. Troponin 0.045. EKG is sinus rate of 82 with no acute ischemic changes. CTA chest shows abnormal CTA chest examination, with bilateral pulmonary embolism. Will discuss with the hospitalist for admission. He was given Lovenox subcutaneously. Disposition: Admission Impression: Bilateral PE This note was generated with [employer] dictation software. It may contain incorrect words, spelling, and punctuation that were not noted in review of the chart prior to signing ED Disposition - Plan for ED Patient: Referrals: Livan Mcfarland MD [Primary Care Provider] -
[2019-01-10] MEDS: Enoxaparin 100 MG/ML Syringe SC (19:58)
--- NOTE | 2019-01-10 22:53 | HP.PCM_ITS ---
Problem List (1) Hypertension Status: Chronic Qualifiers: Hypertension type: essential hypertension Qualified Code(s): I10 - Essential (primary) hypertension (2) PVD (peripheral vascular disease) Status: Chronic (3) Coronary artery disease Status: Chronic Qualifiers: Coronary Disease-Associated Artery/Lesion type: [place] artery [place] vs. transplanted heart: [place] heart Associated angina: with unstable angina Qualified Code(s): I25.110 - Atherosclerotic heart disease of [place] coronary artery with unstable angina pectoris (4) High cholesterol Status: Chronic (5) Sleep apnea Status: Chronic Qualifiers: Sleep apnea type: unspecified type Qualified Code(s): G47.30 - Sleep apnea, unspecified (6) Bladder cancer Status: Chronic Qualifiers: Bladder location: unspecified site Qualified Code(s): C67.9 - Malignant neoplasm of bladder, unspecified (7) Diabetes mellitus type 2 in obese Status: Chronic (8) Lymphoma Status: Chronic Qualifiers: 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 He was discharged on 01/04/19. He also has past medical history of hypertension, type II DM, CAD status post CABG, PAD status post bypass. Since his discharge, patient complains of fatigue, progressive shortness of breath especially on exertion and palpitations. He followed up with his primary oncologist on 01/10/19 and outpatient CTA of the chest was significant for bilateral upper and lower lung PE. Patient denied any chest pain or dizziness or orthopnea or PND. In the ED, his temperature 97.6 F, heart rate 77, blood pressure 160/81, respiratory rate was 18, SPO2 was 95% on room air. His admitting blood work done in outpatient showed improvement in his creatinine, Cr 1.33 from 1.51. Past Medical History Past Medical History (Chronic Problems): Chronic Problems (Last Reviewed 01/10/19 @ 13:28 by Fara Gastelum) Hypertension (Chronic) History of heart bypass surgery (Chronic) history right leg bypass (Chronic) History of tonsillectomy and adenoidectomy (Chronic) History of left cataract extraction (Chronic) History of carotid endarterectomy (Chronic) history of surgery for bladder tumors (Chronic) PVD (peripheral vascular disease) (Chronic) Coronary artery disease (Chronic) History of pulmonary thrombosis (Chronic) High cholesterol (Chronic) Sleep apnea (Chronic) Bladder cancer (Chronic) Hx of lymph node biopsy (Chronic) Left H/O hernia repair (Chronic) November 2018 Right inguinal hernia (Chronic) 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) Thyromegaly (Chronic) Lymphoma (Chronic) Medical History: Medical History (Last Reviewed 01/10/19 @ 13:28 by Fara Gastelum) Hypertension (Chronic) I10 PVD (peripheral vascular disease) (Chronic) I73.9 Coronary artery disease (Chronic) I25.10 History of pulmonary thrombosis (Chronic) Z86.711 High cholesterol (Chronic) E78.00 Sleep apnea (Chronic) G47.30 Bladder cancer (Chronic) C67.9 Lower urinary tract symptoms (Acute) R39.9 Right inguinal hernia (Chronic) K40.90 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) E11.69, E66.9 Thyromegaly (Chronic) E01.0 Lymphoma (Chronic) C85.90 Allergies No Known Allergies Allergy (Verified 01/10/19 17:09) Home Medications: Ambulatory Orders Medication Instructions Recorded lisinopril 20 mg tablet 20 mg PO BID tab 04/05/18 lovastatin 40 mg tablet 40 mg PO QHS 04/05/18 metformin 1,000 mg tablet 1,000 mg PO BID 04/05/18 Cholecalciferol (Vitamin D3) 2,000 unit PO BID 04/10/18 [Vitamin D3] Free [place]-3 Fatty Acids/Fish Oil [Fish 1 cap PO BID 04/10/18 Oil 1,000 mg Capsule] Tamsulosin HCl [Flomax] 0.4 mg PO QHS 09/08/18 Metoprolol Tartrate [Lopressor 50 mg PO BID 09/19/18 (beta richard)] Aspirin 81 mg PO DAILY 01/01/19 Cinnamon Bark [Cinnamon] 500 mg PO BID 01/10/19 Surgical History: Surgical History (Last Reviewed 01/10/19 @ 13:28 by Fara Gastelum) History of heart bypass surgery (Chronic) Z95.1 history right leg bypass (Chronic) History of tonsillectomy and adenoidectomy (Chronic) Z98.890 History of left cataract extraction (Chronic) Z98.42 History of carotid endarterectomy (Chronic) Z98.890 history of surgery for bladder tumors (Chronic) Hx of lymph node biopsy (Chronic) Z98.890 Left H/O hernia repair (Chronic) Z98.890, Z87.19 Nov 2018 Surgical History: cataract - Left, coronary bypass surgery, herniorrhaphy, - - TURBT multiple, status post right leg bypass surgery for PAD, lymph node biopsy Psychiatric History: No pertinent psych hx Lives: With Family Smoking Status: Former smoker Tobacco Use: Non-smoker Alcohol: None Drugs: None - *Family History Paternal Family History: Family History (Last Reviewed 01/10/19 @ 13:28 by Fara Gastelum) Sister Breast cancer Diabetes Mother Diabetes Brother Heart disease Hypertension History Items: No pertinent history Maternal Family History: Family History (Last Reviewed 01/10/19 @ 13:28 by Fara Gastelum) Sister Breast cancer Diabetes Mother Diabetes Brother Heart disease Hypertension History Items: Diabetes Sibling Family History: Family History (Last Reviewed 01/10/19 @ 13:28 by Fara Gastelum) Sister Breast cancer Diabetes Mother Diabetes Brother Heart disease Hypertension History Items: Cancer - breast, Diabetes Review of Systems Constitutional: Reports: Fatigue. Denies: Anorexia, Chills, Fever, Malaise, Weakness, Weight Change Eyes: Denies: Blurred vision, Cataracts, Conjunctivae Inflammation, Drainage, P ain, Redness, Vision Change HEENT: Denies: Difficulty Hearing, Difficulty Swallowing, Head Aches, Hearing Changes, Sinus Congestion, Sinus Drainage Cardiovascular: Denies: Chest Pain, Chest Tightness, Light Headedness, Orthopnea, Palpitations, Paroxysmal Noc. Dyspnea, Syncope Respiratory: Reports: Shortness of Breath, Shortness of breath upon exertion. Denies: Cough, Hemoptysis, Shortness of breath at rest, Sputum production Gastrointestinal: Denies: Abdominal Pain, Constipation, Hematemesis, H ematochezia, Nausea, Vomiting Genitourinary: Denies: Dysuria, Frequency, Incontinence, Nocturia Musculoskeletal: Denies: Joint Pain, Joint stiffness, Joint swelling, Joint Tenderness Skin: Denies: Rash, Wounds Neurological: Denies: Difficulty swallowing, Focal weakness, Numbness, Tingling Psychiatric: Denies: Anxiety, Depression, Homicidal Ideations, Suicidal Ideations Hematologic/ Lymphatic: Denies: Easy Bruising, Easy Bleeding VTE Information - Inpt Only VTE Present on Admission: Yes VTE Pharm Prophylaxis ordered?: Yes Patient Problems: Active and Suspected Problems (Last Reviewed 01/10/19 @ 13:28 by Fara Gastelum) Exertional dyspnea (Acute) - Physical Exam General: Alert, Oriented x3, Cooperative, No apparent distress, - - on 2 L of oxygen HEENT: Atraumatic, PERRLA, EOMI, Normocephalic Oral: Moist Mucosa Neck: Supple Lungs: Clear to auscultation, Normal air movement Cardiovascular: Regular rate, Regular Rhythm, Normal S1, Normal S2, No murmurs Abdomen: Bowel Sounds Present, Soft, Non Tender, Non-Distended, No Hepato- splenomegaly Extremities: Edema - Bilateral lower leg edema +2 Skin: No rashes Musculoskeletal: No Tenderness to Palpation of Joints or Extremities Lymphatic: No Cervical, Supraclavicular, or Inguinal Adenopathy Neurological: Cranial nerves II-XII grossly intact, Neuro grossly intact Psych/Mental Status: Normal Affect, Appropriate Vital Signs Temp Pulse Resp BP Pulse Ox 97.8 F 94 18 161/83 H 93 01/10/19 21:16 01/10/19 21:16 01/10/19 21:16 01/10/19 21:17 01/10/19 21:16 Oxygen Flow Rate (L/min) 3 Oxygen Delivery Method Room Air Weight: 101.4 kg Body Mass Index (BMI) 27.9 Laboratory Tests Past 24 Hrs 01/10/19 18:13 Troponin I 0.045 Assessment/Plan All Active Problems (Last Reviewed 01/10/19 @ 13:28 by Fara Gastelum) Exertional dyspnea (Acute) Hematuria, gross (Acute) Lower urinary tract symptoms (Acute) 83 year old M with past medical history of B-cell lymphoma, bladder CA, history of PE, off Eliquis, recently admitted and discharged with hematuria. He was discharged on 01/04/19. He comes in with progressive dyspnea especially on exertion, fatigue and palpitations and was diagnosed with bilateral PE in the outpatient. 1. Acute respiratory insufficiency secondary to acute bilateral PE, continue on oxygen, wean off for SPO2 more than 94%, encourage use of incentive spirometer 2. Acute bilateral PE in a patient with history of lymphoma and bladder CEA, patient has been off Eliquis, presumably for history of hematuria Given 1 dose of therapeutic Lovenox in the ED, will need to continue with this, Pulmonology consult, 2D echo, Case management to assist with discharge planning in finding the right medication plan for patient according to his insurance 3. B-cell lymphoma, last had chemotherapy on 12/26/18, oncology will be consulted 4. Bladder CA, with recent hematuria, status post continuous bladder irrigation, off Plavix Will continue to monitor for hematuria since he will be started on therapeutic Lovenox 5. BPH on flomax 6. Hypertension, uncontrolled, continue lisinopril and metoprolol with holding parameters, hydralazine as needed 7. CAD status post CABG PAD status post bypass, off Plavix, We will hold aspirin as he will be started on therapeutic Lovenox to decrease his bleeding risk, he recently had hematuria 8. Type II DM, on metformin, will hold metformin and put on insulin sliding scale with Accu-Cheks 9. DVT PPx- on therapeutic Lovenox Code Visit Inpatient E&M: 88686 Init Hosp L3
--- NOTE | 2019-01-10 23:48 | ECHOD_ITS ---
Reason For Study: EMBOLI Procedure This was a 2D Doppler, Color Flow transthoracic echocardiogram. The exam was of poor technical quality due to suboptimal acoustic window. Exam performed portable in patient room. Left Ventricle Normal size and thickness. The estimated ejection fraction is 55 %. Stage 2 diastolic dysfunction. No regional wall motion abnormalities noted. Right Ventricle Normal RV size. Normal systolic function. Atria Normal left atrium. Normal right atrium. Mitral Valve There is no mitral valve stenosis. Trivial mitral valve insufficiency. Tricuspid Valve There is no tricuspid stenosis. Trivial tricuspid valve insufficiency. Pulmonary artery systolic pressure is 60 mmHg. Moderate pulmonary hypertension. Aortic Valve Trisinus/trileaflet aortic valve. Aortic sclerosis, no stenosis. There is no aortic stenosis. No aortic valve insufficiency. Pulmonic Valve There is no pulmonic valvular stenosis. No pulmonic valve insufficiency. Great Vessels Normal aortic root. Pericardium/Pleural No pericardial effusion. Medication Definity deferred per Dr Delgado d/t elevated PAP. MMode/2D Measurements & Calculations LVIDd: 5.5 cm IVSd: 1.0 cm LVOT diam: 2.0 cm LVIDs: 3.9 cm LVPWd: 1.1 cm RVDd: 3.5 cm FS: 28.7 % LVOT area: 3.0 cm2 Ao root diam: 3.7 cm LAV(MOD-bp): 65.2 ml LA A4 area: 20.7 cm2 LAV(MOD-bp) Indexed: 28.4 ml/m2 LAV(MOD-sp2): 62.8 ml LAV(MOD-sp4): 66.4 ml LA dimension(2D): 3.8 cm RA A4 area: 15.5 cm2 Time Measurements MV dec time: 0.27 sec Doppler Measurements & Calculations MV E max timothy: 71.4 cm/sec Lat Peak E' Timothy: 4.4 cm/sec Med Peak E' Timothy: 4.6 cm/sec MV A max timothy: 95.6 cm/sec E/E' lat: 16.3 E/E' med: 15.4 MV E/A: 0.75 MV V2 max: 100.3 cm/sec Ao V2 max: 135.5 cm/sec LV V1 max: 121.7 cm/sec MV max P.0 mmHg Ao max P.3 mmHg LV V1 max P.9 mmHg MV V2 mean: 64.5 cm/sec MAYNOR(V,D): 2.7 cm2 MV mean P.8 mmHg MV V2 VTI: 23.0 cm TR max timothy: 336.3 cm/sec MV P1/2t-pr_phl: 80.6 msec TR max P.9 mmHg Interpretation Summary The estimated ejection fraction is 55 %. Stage 2 diastolic dysfunction. Pulmonary artery systolic pressure is 60 mmHg. Moderate pulmonary hypertension. Aortic sclerosis, no stenosis. Ordering Physician: Abi Sheriff Referring Physician: UNRULY SINCLAIR Performed By: Jess Mays, BEBETO, RVT
[2019-01-11] VITALS (7 sets, daily range): BP systolic 131–150; BP diastolic 71–81; PULSE 77–93; RESP 18; TEMP 36.7–36.9; O2SAT 87–95
[2019-01-11] MEDS: 0.9% NaCl VAD Flush IV ×2 (03:01→06:14)
[2019-01-11 03:18] LABS: Absolute Lymphocyte Count 0.35 X10^3/ul (0.83-4.51); Absolute Neutrophil Count 4.2 X10^3/uL (2.0-7.7); Basophil# 0.05 X10^3/uL; Basophil% 0.9 % (0-1); Eosinophil# 0.17 X10^3/uL; Eosinophils% 3.1 % (0-5); Hemoglobin 9.9 g/dl (13.0-16.5); Lymphocyte # 0.35 X10^3/ul (4.0); Lymphocyte % 6.4 % (19-41); Mean Corpuscular Hgb 30.3 pg (27.0-32.0); Mean Corpuscular Volume 91.7 fL (80-94); Mean Platelet Vol. 9.4 fl (6.2-12.0); Monocyte# 0.68 X10^3/uL; Monocyte% 12.4 % (0-10); Neutrophil # 4.21 X10^3/uL (2.7-7.7); Platelet Count 168 K/mm3 (150-450); RBC Distribution Width CV 16.2 % (11.6-14.6); RBC Distribution Width SD 53.7 fl (35.1-43.9); Red Blood Count 3.27 M/mm3 (4.6-6.2); White Blood Count 5.5 K/mm3 (4.4-11.0)
[2019-01-11 03:19] LABS: Differential Indicated SCAN CRITERIA MET; POSITIVE COUNT NO; POSITIVE DIFFERENTIAL YES; POSITIVE MORPHOLOGY NO
[2019-01-11 03:33] LABS: ALB/GLOB Ratio 0.9 RATIO (0.9-2.4); AST(SGOT) 17 U/L (15-37); Alanine Aminotransfer ALT/SGPT 17 U/L (16-61); Albumin, Serum 2.6 g/dL (3.2-5.0); Alkaline Phosphatase 57 U/L (45-117); Anion Gap 7 (5-15); BUN 17 mg/dL (7-18); Calcium,Total 8.3 mg/dL (8.5-10.1); Chloride 111 mmol/L (98-107); Creatinine, Serum 1.13 mg/dL (0.70-1.30); EST Glomerular Filtration Rate 66 mL/min (>60); Est Glom Filt Rate - Afr Amer 80 mL/min (>60); Estimated Creatinine Clearance 61.28 ml/min; Glucose 125 mg/dL (74-106); Potassium 3.9 mmol/L (3.5-5.1); Protein, Total 5.6 g/dL (6.4-8.2); Sodium Level 143 mmol/L (136-145)
[2019-01-11 04:28] LABS: Differential Comment SCANNED
[2019-01-11 06:30] LABS: Absolute Lymphocyte Count 0.64 X10^3/ul (0.83-4.51); Absolute Neutrophil Count 3.6 X10^3/uL (2.0-7.7); Basophil# 0.05 X10^3/uL; Basophil% 1.1 % (0-1); Eosinophil# 0.18 X10^3/uL; Eosinophils% 3.8 % (0-5); Hematocrit 29.5 % (40-54); Hemoglobin 9.7 g/dl (13.0-16.5); Lymphocyte # 0.64 X10^3/ul (4.0); Lymphocyte % 13.6 % (19-41); Mean Corp Hgb Conc 32.9 g/gl (32-36); Mean Corpuscular Hgb 30.1 pg (27.0-32.0); Mean Corpuscular Volume 91.6 fL (80-94); Mean Platelet Vol. 9.2 fl (6.2-12.0); Monocyte# 0.25 X10^3/uL; Monocyte% 5.3 % (0-10); Neutrophil # 3.58 X10^3/uL (2.7-7.7); Neutrophil % 75.8 % (47-70); Platelet Count 159 K/mm3 (150-450); RBC Distribution Width CV 16.1 % (11.6-14.6); Red Blood Count 3.22 M/mm3 (4.6-6.2); White Blood Count 4.7 K/mm3 (4.4-11.0)
[2019-01-11 06:32] LABS: POSITIVE COUNT NO; POSITIVE DIFFERENTIAL NO; POSITIVE MORPHOLOGY NO
[2019-01-11 06:46] LABS: ALB/GLOB Ratio 0.9 RATIO (0.9-2.4); AST(SGOT) 15 U/L (15-37); Alanine Aminotransfer ALT/SGPT 17 U/L (16-61); Albumin, Serum 2.6 g/dL (3.2-5.0); Alkaline Phosphatase 51 U/L (45-117); Anion Gap 8 (5-15); BUN 17 mg/dL (7-18); BUN/Creat Ratio 15.3 RATIO (10-20); Calcium,Total 8.2 mg/dL (8.5-10.1); Chloride 111 mmol/L (98-107); Creatinine, Serum 1.11 mg/dL (0.70-1.30); EST Glomerular Filtration Rate 68 mL/min (>60); Est Glom Filt Rate - Afr Amer 82 mL/min (>60); Estimated Creatinine Clearance 62.38 ml/min; Globulin 2.9 g/dL (2.2-4.2); Glucose 140 mg/dL (74-106); Protein, Total 5.5 g/dL (6.4-8.2); Sodium Level 143 mmol/L (136-145)
[2019-01-11 07:11] LABS: Bedside Glucose 137 mg/dL (70-110)
[2019-01-11 09:23] LABS: International Normalized Ratio 1.1; Prothrombin Time (Protime)PT. 13.5 SECONDS (11.7-14.9)
--- NOTE | 2019-01-11 09:30 | PCM.CONS.PUL ---
Problem List (1) Hypertension Status: Chronic Qualifiers: Hypertension type: essential hypertension Qualified Code(s): I10 - Essential (primary) hypertension (2) History of heart bypass surgery Status: Chronic (3) history right leg bypass Status: Chronic (4) History of tonsillectomy and adenoidectomy Status: Chronic (5) History of left cataract extraction Status: Chronic (6) History of carotid endarterectomy Status: Chronic (7) history of surgery for bladder tumors Status: Chronic (8) PVD (peripheral vascular disease) Status: Chronic (9) Coronary artery disease Status: Chronic Qualifiers: Coronary Disease-Associated Artery/Lesion type: [place] artery [place] vs. transplanted heart: [place] heart Associated angina: with unstable angina Qualified Code(s): I25.110 - Atherosclerotic heart disease of [place] coronary artery with unstable angina pectoris (10) History of pulmonary thrombosis Status: Chronic (11) Sleep apnea Status: Chronic Qualifiers: Sleep apnea type: unspecified type Qualified Code(s): G47.30 - Sleep apnea, unspecified (12) Bladder cancer Status: Chronic Qualifiers: Bladder location: unspecified site Qualified Code(s): C67.9 - Malignant neoplasm of bladder, unspecified (13) H/O hernia repair Status: Chronic Comment: November 2018 (14) Right inguinal hernia Status: Chronic (15) Diabetes mellitus type 2 in obese Status: Chronic Reason for Consult Date of Consultation: 01/11/19 Reason for Consultation: Pulmonary embolism History of Present Illness: The patient is a 83 year old M, with past medical history listed below, who presented to [facility] on 01/10/2019 secondary to worsening shortness of breath. Patient was reportedly recently hospitalized secondary to hematuria from 01/01 until 01/04. Patient reportedly went home and after 24 to 48 hours started to develop significant dyspnea on exertion. Patient denied any chest pain, abdominal pain, nausea or vomiting. Patient is currently on chemotherapy secondary to bladder cancer and B-cell lymphoma. Patient does state that he was on anticoagulation in the past, but this was discontinued secondary to difficulties with bladder hemorrhaging. In the emergency room, patient was noted to be 95% on nasal cannula oxygen. Hemoglobin was slightly low at 10.8 and creatinine was slightly elevated at 1.33. Patient was noted to be sinus rhythm with a rate of 82, but CTA of the chest showed bilateral pulmonary emboli. Patient was admitted to the PCU on Lovenox therapy. Patient does report a history of smoking in the past. Patient quit over a decade ago. Patient denies any illicit drug use, but does report social alcohol use. 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 Patient has not been seen by hand sizer or had PFTs previously. Patient does report that he had a pulmonary embolism several years ago and was on anticoagulation for over 6 months. Patient denies any recent travel, but was recently hospitalized. Patient denies any trauma. On review of systems, patient reports his hematuria has improved from previous. Review of systems otherwise negative x10 systems. Past Medical History Past Medical History (Chronic Problems): Chronic Problems (Last Reviewed 01/10/19 @ 13:28 by Fara Gastelum) Hypertension (Chronic) History of heart bypass surgery (Chronic) history right leg bypass (Chronic) History of tonsillectomy and adenoidectomy (Chronic) History of left cataract extraction (Chronic) History of carotid endarterectomy (Chronic) history of surgery for bladder tumors (Chronic) PVD (peripheral vascular disease) (Chronic) Coronary artery disease (Chronic) History of pulmonary thrombosis (Chronic) High cholesterol (Chronic) Sleep apnea (Chronic) Bladder cancer (Chronic) Hx of lymph node biopsy (Chronic) Left H/O hernia repair (Chronic) November 2018 Right inguinal hernia (Chronic) 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) Thyromegaly (Chronic) Lymphoma (Chronic) Medical History: Medical History (Last Reviewed 01/10/19 @ 13:28 by Fara Gastelum) Hypertension (Chronic) I10 PVD (peripheral vascular disease) (Chronic) I73.9 Coronary artery disease (Chronic) I25.10 History of pulmonary thrombosis (Chronic) Z86.711 High cholesterol (Chronic) E78.00 Sleep apnea (Chronic) G47.30 Bladder cancer (Chronic) C67.9 Lower urinary tract symptoms (Acute) R39.9 Right inguinal hernia (Chronic) K40.90 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) E11.69, E66.9 Thyromegaly (Chronic) E01.0 Lymphoma (Chronic) C85.90 Allergies No Known Allergies Allergy (Verified 01/10/19 17:09) Home Medications: Ambulatory Orders Medication Instructions Recorded lisinopril 20 mg tablet 20 mg PO BID tab 04/05/18 lovastatin 40 mg tablet 40 mg PO QHS 04/05/18 metformin 1,000 mg tablet 1,000 mg PO BID 04/05/18 Cholecalciferol (Vitamin D3) 2,000 unit PO BID 04/10/18 [Vitamin D3] [place]-3 Fatty Acids/Fish Oil [Fish 1 cap PO BID 04/10/18 Oil 1,000 mg Capsule] Tamsulosin HCl [Flomax] 0.4 mg PO QHS 09/08/18 Metoprolol Tartrate [Lopressor 50 mg PO BID 09/19/18 (beta richard)] Aspirin 81 mg PO DAILY 01/01/19 Cinnamon Bark [Cinnamon] 500 mg PO BID 01/10/19 Surgical History: Surgical History (Last Reviewed 01/10/19 @ 13:28 by Fara Gastelum) History of heart bypass surgery (Chronic) Z95.1 history right leg bypass (Chronic) History of tonsillectomy and adenoidectomy (Chronic) Z98.890 History of left cataract extraction (Chronic) Z98.42 History of carotid endarterectomy (Chronic) Z98.890 history of surgery for bladder tumors (Chronic) Hx of lymph node biopsy (Chronic) Z98.890 Left H/O hernia repair (Chronic) Z98.890, Z87.19 Nov 2018 Surgical History: cataract - Left, coronary bypass surgery, herniorrhaphy, - - TURBT multiple, status post right leg bypass surgery for PAD, lymph node biopsy Psychiatric History: No pertinent psych hx Lives: With Family Smoking Status: Former smoker Tobacco Use: Non-smoker Alcohol: None Drugs: None - *Family History Paternal Family History: Family History (Last Reviewed 01/10/19 @ 13:28 by Fara Gastelum) Sister Breast cancer Diabetes Mother Diabetes Brother Heart disease Hypertension History Items: No pertinent history Maternal Family History: Family History (Last Reviewed 01/10/19 @ 13:28 by Fara Gastelum) Sister Breast cancer Diabetes Mother Diabetes Brother Heart disease Hypertension History Items: Diabetes Sibling Family History: Family History (Last Reviewed 01/10/19 @ 13:28 by Fara Gastelum) Sister Breast cancer Diabetes Mother Diabetes Brother Heart disease Hypertension History Items: Cancer - breast, Diabetes Review of Systems Comment: See HPI Patient Problems: Active and Suspected Problems (Last Reviewed 01/10/19 @ 13:28 by Fara Gastelum) Exertional dyspnea (Acute) Objective: CT scan of the chest was personally reviewed. Pulmonary emboli are visualized. However, patient also has some emphysematous changes noted of the upper lobes and some areas of borderline bronchiectasis. Patient does not have a previous echocardiogram for evaluation. - Physical Exam General: Alert, Oriented x3, Cooperative, No apparent distress, Well developed, Well nourished, - - No conversational dyspnea. HEENT: Atraumatic, PERRLA, EOMI, Normocephalic, - - No scleral icterus or injection noted. Oral: Moist Mucosa, No Gingival or Mucosal Lesions/ Ulcerations Neck: Supple, No JVD, No Nodes, Trachea Midline Lungs: No rhonchi, No wheeze, No rales, Diminished, - - No splinting or guarding noted. Cardiovascular: Regular rate, Regular Rhythm, Normal S1, Normal S2, No murmurs, No rub noted, No Gallop Abdomen: Bowel Sounds Present, Soft, Non Tender, Non-Distended Extremities: No clubbing, No cyanosis, Capillary Refill Less than 3 Seconds, Edema - Trace to 1+ left lower extremity edema Skin: No rashes, No breakdown Musculoskeletal: No Tenderness to Palpation of Joints or Extremities Lymphatic: No Cervical, Supraclavicular, or Inguinal Adenopathy Neurological: Cranial nerves II-XII grossly intact, Neuro grossly intact, Motor Exam 5/5 strength throughout Psych/Mental Status: Alert and oriented to time, place, person, mood and affect Vital Signs Temp Pulse Resp BP Pulse Ox 36.9 C 93 18 150/81 H 93 01/11/19 03:15 01/11/19 03:15 01/11/19 03:15 01/11/19 03:15 01/11/19 03:15 Oxygen Flow Rate (L/min) 3 Oxygen Delivery Method Room Air Weight: 100.8 kg Body Mass Index (BMI) 27.9 Intake and Output for Last 24 Hours 01/09/19 01/10/19 01/11/19 23:59 23:59 23:59 Intake Total 240 / 240 Output Total 200 / 200 Balance 40 / 40 Laboratory Tests Past 24 Hrs 01/10/19 01/11/19 01/11/19 18:13 03:06 03:06 WBC 5.5 RBC 3.27 L Hgb 9.9 L Hct 30.0 L MCV 91.7 MCH 30.3 MCHC 33.0 RDW 16.2 H RDW Differential 53.7 H Plt Count 168 MPV 9.4 Immature Gran % (Auto) 0.200 Neut % (Auto) 77.0 H Lymph % (Auto) 6.4 L [place] % (Auto) 12.4 H Eos % (Auto) 3.1 Baso % (Auto) 0.9 Absolute Neuts (auto) 4.2 Absolute Lymphs (auto) 0.35 L Total Counted Not Reportable Differential Comment SCANNED PT INR Sodium Potassium Chloride Carbon Dioxide Anion Gap BUN Creatinine Estim Creat Clear Calc Est GFR (MDRD) Af Amer Est GFR (MDRD) Non-Af BUN/Creatinine Ratio Glucose Calcium Total Bilirubin AST ALT Alkaline Phosphatase Troponin I 0.045 0.057 H Total Protein Albumin Globulin Albumin/Globulin Ratio 01/11/19 01/11/19 01/11/19 03:06 06:20 06:20 WBC 4.7 RBC 3.22 L Hgb 9.7 L Hct 29.5 L MCV 91.6 MCH 30.1 MCHC 32.9 RDW 16.1 H RDW Differential 53.0 H Plt Count 159 MPV 9.2 Immature Gran % (Auto) 0.400 Neut % (Auto) 75.8 H Lymph % (Auto) 13.6 L [place] % (Auto) 5.3 Eos % (Auto) 3.8 Baso % (Auto) 1.1 H Absolute Neuts (auto) 3.6 Absolute Lymphs (auto) 0.64 L Total Counted Not Reportable Differential Comment PT INR Sodium 143 143 Potassium 3.9 4.0 Chloride 111 H 111 H Carbon Dioxide 25.0 24.0 Anion Gap 7 8 BUN 17 17 Creatinine 1.13 1.11 Estim Creat Clear Calc 61.28 62.38 Est GFR (MDRD) Af Amer 80 82 Est GFR (MDRD) Non-Af 66 68 BUN/Creatinine Ratio 15.0 15.3 Glucose 125 H 140 H Calcium 8.3 L 8.2 L Total Bilirubin 0.50 0.50 AST 17 15 ALT 17 17 Alkaline Phosphatase 57 51 Troponin I 0.050 H Total Protein 5.6 L 5.5 L Albumin 2.6 L 2.6 L Globulin 3.0 2.9 Albumin/Globulin Ratio 0.9 0.9 07/11/19 08:50 WBC RBC Hgb Hct MCV MCH MCHC RDW RDW Differential Plt Count MPV Immature Gran % (Auto) Neut % (Auto) Lymph % (Auto) [place] % (Auto) Eos % (Auto) Baso % (Auto) Absolute Neuts (auto) Absolute Lymphs (auto) Total Counted Differential Comment PT 13.5 INR 1.1 Sodium Potassium Chloride Carbon Dioxide Anion Gap BUN Creatinine Estim Creat Clear Calc Est GFR (MDRD) Af Amer Est GFR (MDRD) Non-Af BUN/Creatinine Ratio Glucose Calcium Total Bilirubin AST ALT Alkaline Phosphatase Troponin I Total Protein Albumin Globulin Albumin/Globulin Ratio POC Glucose 01/11/19 06:54 POC Glucose 137 H Assessment/Plan All Active Problems (Last Reviewed 01/10/19 @ 13:28 by Fara Gastelum) Exertional dyspnea (Acute) Hematuria, gross (Acute) Lower urinary tract symptoms (Acute) RECOMMENDATIONS: 1. Await echocardiogram 2. Discontinue lower extremity Dopplers 3. Continue Lovenox therapy 4. Walking oximetry prior to discharge 5. Outpatient complete PFT IMPRESSIONS: 1. Acute respiratory insufficiency secondary to bilateral PE in the setting of active cancer Patient does have a history of pulmonary emboli in the past. Patient is currently off of Eliquis therapy secondary to recent hematuria. Patient likely will require lifelong anticoagulation at this time. Echocardiogram has been ordered to evaluate right heart strain. 10-A inhibitors have not been tested in the setting of cancer, so Lovenox may be the preferred anticoagulation of choice. Would defer to patient's oncologist. Patient will need a walking oximetry prior to discharge as he likely has elevated pulmonary artery pressures and may desaturate with exertion. 2. Emphysematous and bronchiectatic changes on CT Patient minimizes previous tobacco exposure. However, chest imaging is suggestive of underlying lung pathology. Patient may benefit from addition of Acapella therapy. Empiric bronchodilators would not be unreasonable if patient were to develop worsening shortness of breath. Patient would benefit from outpatient pulmonary function test for quantification and clarification of lung function. 3. B-cell lymphoma/bladder cancer Patient's last chemotherapy was 12/26/2018. Oncology has been consulted. Will need to monitor closely for hematuria. If patient were to develop hematuria, heparin drip may be a better option. 4. Hypertension/CAD status post CABG/diabetes mellitus type 2/advanced age Complicates care, management, recovery and prognosis. Patient is currently off of Plavix therapy. Agree with the use of sliding scale insulin to avoid nephrotoxicity in the setting of recent contrast and metformin. Code Visit Inpatient E&M: 74443 Init Hosp L3
--- NOTE | 2019-01-11 10:51 | CASEMGMT ---
Readmission chart review: Pt was admitted 01/02-01/04/19 for gross hematuria. Pt had surgery in December for bladder CA and is currently on chemo for lymphoma(last chemo 12/26/18). Plavix was discontinued at this time but pt was left on baby asa daily. Pt was on Eliquis in the past but states that he has not been on it for about a year. See assessment completed by Evaristo WEATHERS CM on 01/02/19. Pt readmitted 01/10/[address] for SOB since last week and CT is positive for bilat PE's at this time. CM to follow for any further discharge planning/needs. Per Kat LINDQUIST, pt to be placed Eliquis at discharge and med e-scribed to [facility] retail pharmacy at this time. This RN CM will f/u with pharmacy to verify coverage/co-pay. Pt to be tested for home oxygen as well. Dilshad WEATHERS CM
[2019-01-11] MEDS: Metoprolol Tartrate 50 MG Tablet PO (10:54)
[2019-01-11] MEDS: Lisinopril 20 MG Tablet PO (10:54)
--- NOTE | 2019-01-11 11:02 | DCINST_ITS ---
- Discharge Diagnoses Current Active Problems: Current Active and Chronic Problems (Last Reviewed 01/10/19 @ 13:28 by Fara Gastelum) Exertional dyspnea (Acute) You will use the following diet at home:: Cardiac Your food should be the consistency of: Regular Your liquids should be the consistency of: Regular/Thin Discharge Activity: Return to Normal Activity Allergies/Adverse Reactions: Allergies No Known Allergies Allergy (Verified 01/10/19 17:09) Medications to take at Discharge lisinopril 20 mg tablet 20 mg PO BID tab 04/05/18 lovastatin 40 mg tablet 40 mg PO QHS 04/05/18 metformin 1,000 mg tablet 1,000 mg PO BID 04/05/18 Cholecalciferol (Vitamin D3) [Vitamin D3] 2,000 unit PO BID 04/10/18 [place]-3 Fatty Acids/Fish Oil [Fish Oil 1,000 mg Capsule] 1 cap PO BID 04/10/18 Tamsulosin HCl [Flomax] 0.4 mg PO QHS 09/08/18 Metoprolol Tartrate [Lopressor (beta richard)] 50 mg PO BID 09/19/18 Apixaban [Eliquis] 10 mg PO BID #72 tab 01/11/19 The following prescriptions were given: Apixaban [Eliquis] 10 mg PO BID #72 tab Transmission Status: Pending to [facility] Primary Care Physician: Livan Mcfarland MD [Primary Care Provider] - Please follow up with your Primary Care Physician in: 1 week Test Results: Test results from this visit will be discussed in further detail at your follow- up appointment, if applicable. Please Follow Up With: Joe Phillip MD When: as directed Please Follow Up With: Annemarie Craig NP-C When: 1 week Proposed Discharge Date: 01/11/19
[2019-01-11] MEDS: Insulin Lispro 100 UNIT/ML INSULN.PEN SC (11:07)
--- NOTE | 2019-01-11 11:58 | CASEMGMT ---
Addendum entered by Gisselle Rudolph 01/11/19 12:52: Pt's also updated on all at this time and voices understanding. Pt/ voice no further questions/concerns/needs at this time. Dilshad WEATHERS CM Original Note: Per Lala WEATHERS, pt does qualify for home oxygen at this time. Pt states no preference for DME company at this time. Referral faxed to [facility] and call to Hanh at [facility] to notify of referral and that pt ready for d/c, voices understanding. Hanh states that they will be over with a tank for pt. Pt also to be sent home on [employer] and per Sirisha in the pharmacy, the co-pay is $47/month but they did already apply a free 30 day trial card for pt at this time. Pt updated at this time, voices understanding. Dilshad WEATHERS CM
[2019-01-11] MEDS: APIXABAN 5 MG TABLET 10 MG PO (13:39)
--- NOTE | 2019-01-11 14:04 | DS.PCM_ITS ---
<Gerry Davila - Last Filed: 01/11/19 14:04> Discharge Date and Diagnosis - Problem List Patient Problems: Active and Suspected Problems (Last Reviewed 01/10/19 @ 13:28 by Fara Gastelum) Exertional dyspnea (Acute) Date of Admission: 01/10/19 Date of Discharge: 01/11/19 - Primary Discharge Diagnosis Active and Suspected Problems (Last Reviewed 01/10/19 @ 13:28 by Fara Gastelum) Bilateral PEs, recurrent CAD PVD Bladder cancer, recent hematuria DMt2 Hx NHL, B cell lymphoma HLD - Secondary Discharge Diagnosis Chronic Problems (Last Reviewed 01/10/19 @ 13:28 by Fara Gastelum) Hypertension (Chronic) History of heart bypass surgery (Chronic) history right leg bypass (Chronic) History of tonsillectomy and adenoidectomy (Chronic) History of left cataract extraction (Chronic) History of carotid endarterectomy (Chronic) history of surgery for bladder tumors (Chronic) PVD (peripheral vascular disease) (Chronic) Coronary artery disease (Chronic) History of pulmonary thrombosis (Chronic) High cholesterol (Chronic) Sleep apnea (Chronic) Bladder cancer (Chronic) Hx of lymph node biopsy (Chronic) Left H/O hernia repair (Chronic) November 2018 Right inguinal hernia (Chronic) 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 N.B. : The above information has been verbally conveyed by Atul Moctezuma MD to Annemarie Craig NP, on 01/10/2019 16:43:27 (ET). Consults: Pulmonology - [place] Operations: None Procedures: 2-D Echocardiogram Summary of Care Provided: Hospital Course: The patient is a 83 year old M with pmhx of PE, bladder cancer, non-hodgkins lymphoma, B cell lymphoma, CAD, PVD, HLD, SHANNAN, who presented to the ER with c/o SOB with exertion. He had a hx of PE and had been taken off eliquis 11-12 months prior by his PCP. He was here recently for hematuria related to his bladder cancer, and at that time was taken off plavix. He was found to have bilateral PEs. He was placed on therapeutic lovenox and admitted to the PCU on tele. He had improvement in his breathing by the following morning. He was weaned off O2 at rest. He continued to need O2 with exertion as he desaturated to 87% with ambulation. He is active at home and in the community and will require home O2 at discharge. He was agreeable to resuming eliquis as he tolerated it well in the past. He was discharged home in stable condition. He needs follow up with his PCP in 1 week, and oncology in 1-2 weeks. Echo report is pending at this time. He will need to follow up with urology if he develops further hematuria - none at this time. This patient was seen by Gerry Davila PA-C under the supervision of Dr. Painting.[] Patient Problems: Active and Suspected Problems (Last Reviewed 01/10/19 @ 13:28 by Fara Gastelum) Exertional dyspnea (Acute) - Physical Exam General: Alert, Oriented x3, Cooperative HEENT: Atraumatic, PERRLA, EOMI, Normocephalic Neck: Supple, No JVD, Negative Carotid Bruits Lungs: Clear to auscultation, Normal air movement Cardiovascular: Regular rate, No murmurs Abdomen: Bowel Sounds Present, Soft, Non Tender Extremities: No edema, Capillary Refill Less than 3 Seconds Skin: No rashes, No breakdown Musculoskeletal: No Tenderness to Palpation of Joints or Extremities Neurological: Cranial nerves II-XII grossly intact Psych/Mental Status: Normal Affect, Appropriate Vital Signs Temp Pulse Resp BP Pulse Ox 98.1 F 82 18 131/71 H 94 01/11/19 09:15 01/11/19 10:54 01/11/19 09:15 01/11/19 09:15 01/11/19 11:31 Oxygen Flow Rate (L/min) [ 2 AMBULATION with Oxygen] Oxygen Flow Rate (L/min) 2 Oxygen Delivery Method Nasal Cannula Weight: 223 lb 8.78 oz Body Mass Index (BMI) 27.9 Intake and Output for Last 24 Hours 01/09/19 01/10/19 01/11/19 23:59 23:59 23:59 Intake Total 720 / 720 Output Total 200 / 200 Balance 520 / 520 Laboratory Tests Past 24 Hrs 01/10/19 01/11/19 01/11/19 18:13 03:06 03:06 WBC 5.5 RBC 3.27 L Hgb 9.9 L Hct 30.0 L MCV 91.7 MCH 30.3 MCHC 33.0 RDW 16.2 H RDW Differential 53.7 H Plt Count 168 MPV 9.4 Immature Gran % (Auto) 0.200 Neut % (Auto) 77.0 H Lymph % (Auto) 6.4 L [place] % (Auto) 12.4 H Eos % (Auto) 3.1 Baso % (Auto) 0.9 Absolute Neuts (auto) 4.2 Absolute Lymphs (auto) 0.35 L Total Counted Not Reportable Differential Comment SCANNED PT INR Sodium Potassium Chloride Carbon Dioxide Anion Gap BUN Creatinine Estim Creat Clear Calc Est GFR (MDRD) Af Amer Est GFR (MDRD) Non-Af BUN/Creatinine Ratio Glucose Calcium Total Bilirubin AST ALT Alkaline Phosphatase Troponin I 0.045 0.057 H Total Protein Albumin Globulin Albumin/Globulin Ratio 01/11/19 01/11/19 01/11/19 03:06 06:20 06:20 WBC 4.7 RBC 3.22 L Hgb 9.7 L Hct 29.5 L MCV 91.6 MCH 30.1 MCHC 32.9 RDW 16.1 H RDW Differential 53.0 H Plt Count 159 MPV 9.2 Immature Gran % (Auto) 0.400 Neut % (Auto) 75.8 H Lymph % (Auto) 13.6 L [place] % (Auto) 5.3 Eos % (Auto) 3.8 Baso % (Auto) 1.1 H Absolute Neuts (auto) 3.6 Absolute Lymphs (auto) 0.64 L Total Counted Not Reportable Differential Comment PT INR Sodium 143 143 Potassium 3.9 4.0 Chloride 111 H 111 H Carbon Dioxide 25.0 24.0 Anion Gap 7 8 BUN 17 17 Creatinine 1.13 1.11 Estim Creat Clear Calc 61.28 62.38 Est GFR (MDRD) Af Amer 80 82 Est GFR (MDRD) Non-Af 66 68 BUN/Creatinine Ratio 15.0 15.3 Glucose 125 H 140 H Calcium 8.3 L 8.2 L Total Bilirubin 0.50 0.50 AST 17 15 ALT 17 17 Alkaline Phosphatase 57 51 Troponin I 0.050 H Total Protein 5.6 L 5.5 L Albumin 2.6 L 2.6 L Globulin 3.0 2.9 Albumin/Globulin Ratio 0.9 0.9 01/11/19 08:50 WBC RBC Hgb Hct MCV MCH MCHC RDW RDW Differential Plt Count MPV Immature Gran % (Auto) Neut % (Auto) Lymph % (Auto) [place] % (Auto) Eos % (Auto) Baso % (Auto) Absolute Neuts (auto) Absolute Lymphs (auto) Total Counted Differential Comment PT 13.5 INR 1.1 Sodium Potassium Chloride Carbon Dioxide Anion Gap BUN Creatinine Estim Creat Clear Calc Est GFR (MDRD) Af Amer Est GFR (MDRD) Non-Af BUN/Creatinine Ratio Glucose Calcium Total Bilirubin AST ALT Alkaline Phosphatase Troponin I Total Protein Albumin Globulin Albumin/Globulin Ratio POC Glucose 01/11/19 06:54 POC Glucose 137 H Discharge Diet: Low fat/ Low Cholesterol, 2000 mg Sodium Diet Discharge Activity: Return to Normal Activity Home Medications: Medications to take at Discharge lisinopril 20 mg tablet 20 mg PO BID tab 04/05/18 lovastatin 40 mg tablet 40 mg PO QHS 04/05/18 metformin 1,000 mg tablet 1,000 mg PO BID 04/05/18 Cholecalciferol (Vitamin D3) [Vitamin D3] 2,000 unit PO BID 04/10/18 [place]-3 Fatty Acids/Fish Oil [Fish Oil 1,000 mg Capsule] 1 cap PO BID 04/10/18 Tamsulosin HCl [Flomax] 0.4 mg PO QHS 09/08/18 Metoprolol Tartrate [Lopressor (beta richard)] 50 mg PO BID 09/19/18 Apixaban [Eliquis] 10 mg PO BID #72 tab 01/11/19 Following Prescrptions Were Given to Patient: Apixaban [Eliquis] 10 mg PO BID #72 tab Transmission Status: Received by [facility] Primary Care Physician: Livan Mcfarland MD [Primary Care Provider] - Please follow up with your Primary Care Physician in: 1 week Please Follow Up With: Joe Phillip MD When: as directed Please Follow Up With: Annemarie Craig NP-C When: 1 week Please Follow Up With: Lvian Mcfarland MD Medical Necessity - Tobacco Use Smoking Status: Former smoker Tobacco Use: Non-smoker Meaningful Use Info Meaningful Use Diagnoses (Choose all that apply): VTE - VTE Anticoag overlap given w/in hospital stay or rx'd at dc?: No Pt receive overlap for 5 days?: No Reason overlap not ordered, prescribed, or given for 5 days: Procedure Not Indicated <Lillian Painting - Last Filed: 01/11/19 16:33> Discharge Date and Diagnosis - Primary Discharge Diagnosis Active and Suspected Problems (Last Reviewed 01/10/19 @ 13:28 by Fara Gastelum) Exertional dyspnea (Acute) - Secondary Discharge Diagnosis Chronic Problems (Last Reviewed 01/10/19 @ 13:28 by Fara Gastelum) Hypertension (Chronic) History of heart bypass surgery (Chronic) history right leg bypass (Chronic) History of tonsillectomy and adenoidectomy (Chronic) History of left cataract extraction (Chronic) History of carotid endarterectomy (Chronic) history of surgery for bladder tumors (Chronic) PVD (peripheral vascular disease) (Chronic) Coronary artery disease (Chronic) History of pulmonary thrombosis (Chronic) High cholesterol (Chronic) Sleep apnea (Chronic) Bladder cancer (Chronic) Hx of lymph node biopsy (Chronic) Left H/O hernia repair (Chronic) November 2018 Right inguinal hernia (Chronic) 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 Patient does have a history of PE and had been off his Eliquis for about 11 to 12 months prior to admission. He was recently seen for hematuria related to surgery for bladder cancer and was taken off Plavix at that time. He came in with shortness of breath and CT angiogram done showed bilateral PE. Patient was started on therapeutic Lovenox admitted. Shortness of breath improved. Patient was switched back to his Eliquis. Echocardiogram done showed EF of 55% with stage II diastolic dysfunction and pulmonary artery systolic pressure of 60 mmHg. Patient was walking pulse ox showed that he desaturated to 87% with ambulation on room air therefore requiring home oxygen. Patient remained stable and was discharged home on p.o. Eliquis on 01/11/2019. He is to follow-up with his primary care doctor within 1 week and also with oncology. Is also to follow-up with urology. Patient seen and examined prior to discharge. He was stable and had no complaints. Review of systems otherwise negative. Labs and vitals reviewed. Shortness of breath had resolved. Home Medications reviewed and reconciled. o/e: Vital Signs Height 6 ft 3 in Weight: 223 lb 8.78 oz Weight in Pounds 223.5 lbs Pulse Ox [AMBULATION with 93 Oxygen] Pulse Ox [AMBULATING on Room 87 Air] Pulse Ox [At REST on Room Air] 94 Pulse Ox 94 Temperature 98.1 F Pulse Rate 82 Respiratory Rate 18 Blood Pressure [2nd BP] 161/83 Blood Pressure 131/71 Blood Pressure Position [2nd Semi-Fowlers BP] Blood Pressure Position Sitting [] General: Alert, Oriented x3, Cooperative HEENT: Atraumatic, PERRLA, EOMI, Normocephalic Neck: Supple, No JVD, Negative Carotid Bruits Lungs: Clear to auscultation, Normal air movement, on 2L of oxygen Cardiovascular: Regular rate, No murmurs Abdomen: Bowel Sounds Present, Soft, Non Tender, no organomegaly Extremities: No edema, Capillary Refill Less than 3 Seconds Skin: No rashes, No breakdown Musculoskeletal: No Tenderness to Palpation of Joints or Extremities Neurological: Cranial nerves II-XII grossly intact Psych/Mental Status: Normal Affect, Appropriate Plan as above. Of note, patient was discharged the day after admission as he improved much more quickly than expected. I have reviewed and endorsed the above note by Gerry Davila PA-C - Physical Exam Vital Signs Temp Pulse Resp BP Pulse Ox 98.1 F 82 18 131/71 H 94 01/11/19 09:15 01/11/19 10:54 01/11/19 09:15 01/11/19 09:15 01/11/19 11:31 Oxygen Flow Rate (L/min) [ 2 AMBULATION with Oxygen] Oxygen Flow Rate (L/min) 2 Oxygen Delivery Method Nasal Cannula Weight: 223 lb 8.78 oz Body Mass Index (BMI) 27.9 Intake and Output for Last 24 Hours 01/09/19 01/10/19 01/11/19 23:59 23:59 23:59 Intake Total 720 / 720 Output Total 200 / 200 Balance 520 / 520 Laboratory Tests Past 24 Hrs 01/10/19 01/11/19 01/11/19 18:13 03:06 03:06 WBC 5.5 RBC 3.27 L Hgb 9.9 L Hct 30.0 L MCV 91.7 MCH 30.3 MCHC 33.0 RDW 16.2 H RDW Differential 53.7 H Plt Count 168 MPV 9.4 Immature Gran % (Auto) 0.200 Neut % (Auto) 77.0 H Lymph % (Auto) 6.4 L [place] % (Auto) 12.4 H Eos % (Auto) 3.1 Baso % (Auto) 0.9 Absolute Neuts (auto) 4.2 Absolute Lymphs (auto) 0.35 L Total Counted Not Reportable Differential Comment SCANNED PT INR Sodium Potassium Chloride Carbon Dioxide Anion Gap BUN Creatinine Estim Creat Clear Calc Est GFR (MDRD) Af Amer Est GFR (MDRD) Non-Af BUN/Creatinine Ratio Glucose Calcium Total Bilirubin AST ALT Alkaline Phosphatase Troponin I 0.045 0.057 H Total Protein Albumin Globulin Albumin/Globulin Ratio 01/11/19 01/11/19 01/11/19 03:06 06:20 06:20 WBC 4.7 RBC 3.22 L Hgb 9.7 L Hct 29.5 L MCV 91.6 MCH 30.1 MCHC 32.9 RDW 16.1 H RDW Differential 53.0 H Plt Count 159 MPV 9.2 Immature Gran % (Auto) 0.400 Neut % (Auto) 75.8 H Lymph % (Auto) 13.6 L [place] % (Auto) 5.3 Eos % (Auto) 3.8 Baso % (Auto) 1.1 H Absolute Neuts (auto) 3.6 Absolute Lymphs (auto) 0.64 L Total Counted Not Reportable Differential Comment PT INR Sodium 143 143 Potassium 3.9 4.0 Chloride 111 H 111 H Carbon Dioxide 25.0 24.0 Anion Gap 7 8 BUN 17 17 Creatinine 1.13 1.11 Estim Creat Clear Calc 61.28 62.38 Est GFR (MDRD) Af Amer 80 82 Est GFR (MDRD) Non-Af 66 68 BUN/Creatinine Ratio 15.0 15.3 Glucose 125 H 140 H Calcium 8.3 L 8.2 L Total Bilirubin 0.50 0.50 AST 17 15 ALT 17 17 Alkaline Phosphatase 57 51 Troponin I 0.050 H Total Protein 5.6 L 5.5 L Albumin 2.6 L 2.6 L Globulin 3.0 2.9 Albumin/Globulin Ratio 0.9 0.9 01/11/19 08:50 WBC RBC Hgb Hct MCV MCH MCHC RDW RDW Differential Plt Count MPV Immature Gran % (Auto) Neut % (Auto) Lymph % (Auto) [place] % (Auto) Eos % (Auto) Baso % (Auto) Absolute Neuts (auto) Absolute Lymphs (auto) Total Counted Differential Comment PT 13.5 INR 1.1 Sodium Potassium Chloride Carbon Dioxide Anion Gap BUN Creatinine Estim Creat Clear Calc Est GFR (MDRD) Af Amer Est GFR (MDRD) Non-Af BUN/Creatinine Ratio Glucose Calcium Total Bilirubin AST ALT Alkaline Phosphatase Troponin I Total Protein Albumin Globulin Albumin/Globulin Ratio POC Glucose 01/11/19 06:54 POC Glucose 137 H Code Visit Inpatient E&M: 76397 Disch Hosp
[2019-01-11 17:51] LABS: Bedside Glucose 223 mg/dL (70-110)
--- NOTE | 2019-01-12 11:14 | CASEMGMT ---
SARAHY BHATTI Discharge F/U Phone Call LACCarlyle: Rose Strata: 3 Discharge date: 01/11/19 Call date: 01/12/19 Call time: [id number] Duration:4 minutes Admission dx: Bilateral PE Pt states has been doing 'pretty good' since discharge yesterday. Pt states no questions regarding discharge instructions or medications at this time. Pt states that he is 'taking it easy, making appointments, and taking meds per order.' Pt does state that [facility] only brought him the e-tanks and he would prefer the mini tanks at this time. Updated order faxed to [facility] at this time with better clarification and this SARAHY BHATTI attempted to call Sebastien Arleyky without success at this time but will attempt again later. Pt states only suggestion for [facility] at this time is 'better food choices so I don't have to pick those healthy choices.' Pt voices no further questions/concerns/needs at this time. Pt does have this RN DAVY's contact info for any further questions/concerns/needs in the future. [place] SARAHY BHATTI
== END 2019-01-11 15:25 | disposition home or self-care (01) | DRG 176 ==
LOC: ED 17:46 → PCU 19:42
PROVIDERS: Physician Assistant; Admitting Provider Internal Medicine; Emergency Provider Emergency Medicine; Family Provider Family Medicine; PCP Family Medicine; Visit Provider Student in an Organized Health Care Education/Training Program
DX: I26.99 Other pulmonary embolism without acute cor pulmonale (principal); C83.30 Diffuse large B-cell lymphoma, unspecified site; C85.14 Unspecified B-cell lymphoma, lymph nodes of axilla and upper limb; C67.9 Malignant neoplasm of bladder, unspecified; I10 Essential (primary) hypertension; I25.10 Atherosclerotic heart disease of native coronary artery without angina pectoris; R06.89 Other abnormalities of breathing; N40.0 Benign prostatic hyperplasia without lower urinary tract symptoms; R54 Age-related physical debility; E78.5 Hyperlipidemia, unspecified; Z86.711 Personal history of pulmonary embolism; Z79.899 Other long term (current) drug therapy; Z87.891 Personal history of nicotine dependence; E11.51 Type 2 diabetes mellitus with diabetic peripheral angiopathy without gangrene; Z79.84 Long term (current) use of oral hypoglycemic drugs; Z95.1 Presence of aortocoronary bypass graft
CPT/HCPCS: 36591; 71275; 80053; 82962; 84484; 85025; 85610; 93005; 93306; 97162; 97166; 97802; 99251; 99284; Q9967; A4216; G0463

== ENCOUNTER → 2019-02-14 07:24 | Outpatient (CLI) | payer MEDICARE, OTHER, SELFPAY ==
[2019-02-07 13:01] VITALS: BMI 27.8
[2019-02-14 09:08] LABS: AST(SGOT) 16 U/L (15-37); Alanine Aminotransfer ALT/SGPT 12 U/L (16-61); Alkaline Phosphatase 75 U/L (45-117); Bilirubin, Direct 0.11 mg/dL (0.00-0.30); Cholesterol 100 mg/dL (200); Globulin 3.1 g/dL (2.2-4.2); High Density Lipoprotein 40 mg/dL; Protein, Total 6.1 g/dL (6.4-8.2); Triglycerides 71 mg/dL; Very Low Density Lipoprotein 14 mg/dL (5-40)
== END ==
PROVIDERS: Family Provider Family Medicine; PCP Family Medicine; Referring Provider Internal Medicine Cardiovascular Disease; Visit Provider Internal Medicine Cardiovascular Disease
DX: E78.5 Hyperlipidemia, unspecified (principal); Z95.1 Presence of aortocoronary bypass graft
CPT/HCPCS: 36415; 80061; 80076

== ENCOUNTER → 2019-02-21 05:51 | Outpatient (CLI) | payer MEDICARE, OTHER, SELFPAY ==
[2019-01-24 15:11] VITALS: BMI 28.8
[2019-02-15 11:20] VITALS: BMI 29.1
--- NOTE | 2019-02-21 12:26 | STRESSREP ---
Stress Test Report Pharmacologic myocardial perfusion stress test. 83-year-old man with a history of coronary artery disease, status post bypass surgery, hypertension, pulmonary embolism. Stress protocol: Resting EKG demonstrates normal sinus rhythm with a rate of [address] changes noted resting blood pressures 140/80 mmHg. 0.4 mg of regadenoson was infused per usual protocol followed by rapid intravenous saline flush injection continuous EKG monitoring was performed. The patient maintained sinus rhythm throughout the recording. At rest there were no ST or T wave changes noted suggest abnormal flow reserve at peak infusion nonspecific ST-T wave changes were noted no clinical angina was noted. The resting blood pressure was 140/80 mmHg with a final blood pressure 140/72 mmHg. Myocardial perfusion protocol. 14.7 mCi of technetium 99m sestamibi was injected at rest. 0.4 mg of regadenoson was infused per usual protocol peak infusion 44.8 mCi of technetium 99m sestamibi was injected stress images were obtained stress and rest images are reconstructed in comparing the short axis vertical long horizontal long axis. Gated images were also obtained Perfusion SPECT analysis: Review of the stress images demonstrate normal uptake of tracer noted in all areas of the myocardium the resting images similar demonstrate normal uptake of tracer noted in all areas of the myocardium. No areas of reversibility are noted suggest ischemia no previous infarct is noted. Gated SPECT analysis: The gated ejection fraction is noted to be 61%. Conclusion: Normal pharmacologic myocardial perfusion stress test. Preserved ejection fraction.
== END ==
PROVIDERS: Family Provider Family Medicine; PCP Family Medicine; Referring Provider Internal Medicine Cardiovascular Disease; Visit Provider Internal Medicine Cardiovascular Disease
DX: I25.10 Atherosclerotic heart disease of native coronary artery without angina pectoris (principal); Z95.1 Presence of aortocoronary bypass graft
CPT/HCPCS: 78452; 93017; A9500; A4216; J2785

== ENCOUNTER → 2019-03-08 08:48 | Outpatient (CLI) | payer MEDICARE, OTHER, SELFPAY ==
[2019-02-27 10:01] VITALS: BMI 28.0
[2019-03-07 08:47] VITALS: BMI 28.0
--- NOTE | 2019-03-08 12:15 | PFTCOMP ---
COMPLETE PULMONARY FUNCTION TEST INTERPRETATION Brief HPI: Patient is an 83 year old male, currently under the care of Dr. Kunz, who presents to [facility] for complete pulmonary function tests secondary to diagnosis of non-Hodgkin's lymphoma. Respiratory therapist reports good effort and reproducible results. Interpretation: Forced expiration spirometry shows no large airways obstructive ventilatory defect with an FEV1 of 75% predicted. There is no significant bronchodilator response by strict ATS criteria. Spirograms are of good quality and plateau slowly, indicating slowly emptying areas of the lungs. The respiratory flow volume loop shows decreased expiratory flow rates at high lung volumes consistent with small airways obstruction. Lung volumes by body plethysmography show a decreased total lung capacity at 6.43 L, 83% predicted. All other lung volumes are within normal limits. Diffusion capacity by carbon monoxide is decreased at 56% predicted. The airway resistance is normal. No previous pulmonary function tests were available for review. Impression: Mild restrictive ventilatory defect with a reduction diffusion capacity that is out of proportion to restriction.
== END ==
PROVIDERS: Family Provider Family Medicine; PCP Family Medicine; Referring Provider Internal Medicine Medical Oncology; Visit Provider Internal Medicine Medical Oncology
DX: C85.94 Non-Hodgkin lymphoma, unspecified, lymph nodes of axilla and upper limb (principal)
CPT/HCPCS: 94060; 94726; 94729

== ENCOUNTER 2019-03-20 05:47 | Day surgery (SDC) | payer MEDICARE, OTHER, SELFPAY ==
[2019-03-07 08:47] VITALS: BMI 28.0
--- NOTE | 2019-03-08 01:22 | HP_ITS ---
Intake Vital Signs 03/07/19 Body Mass Index (BMI) 28.0 03/07/19 Blood Pressure 153/82 H 03/07/19 Blood Pressure Location Rt brachial 03/07/19 Blood Pressure Position Sitting 03/07/19 Respiratory Rate 22 H 03/07/19 Pulse Rate 107 H 03/07/19 Pulse Ox 95 Intake Visit Reasons: LT ARM LYMPH NODE/HERNIA Chief Complaint: recurrent RIH/ pain [employer]iculture Required: No Is patient in pain?: Yes (right groin ) Pain scale (1-10): 4 Allergies No Known Allergies Allergy (Verified 03/07/19 08:47) Medications lisinopril 20 mg tablet 20 mg PO BID tab 04/05/18 [History Confirmed 03/07/19] lovastatin 40 mg tablet 40 mg PO QHS 04/05/18 [History Confirmed 03/07/19] metformin 1,000 mg tablet 1,000 mg PO BID 04/05/18 [History Confirmed 03/07/19] [place]-3 Fatty Acids/Fish Oil [Fish Oil 1,000 mg Capsule] 1 cap PO BID 04/10/18 [History Confirmed 03/07/19] Tamsulosin HCl [Flomax] 0.4 mg PO QHS 09/08/18 [History Confirmed 03/07/19] Metoprolol Tartrate [Lopressor (beta richard)] 50 mg PO BID 09/19/18 [History Confirmed 03/07/19] cholecalciferol (vitamin D3) 1,000 unit (25 mcg) tablet 1,000 unit PO BID tab 01/24/19 [History Confirmed 03/07/19] latanoprost 0.005 % eye drops 1 dose OPHTHALMIC DAILY #25 ml 01/24/19 [History Confirmed 03/07/19] Apixaban [Eliquis] 5 mg PO BID 90 Days #180 tab 02/06/19 [Rx Confirmed 03/07/19] [facility] Medical History Atherosclerosis of [place] artery of both lower extremities with intermittent claudication (Chronic) Secondary pulmonary arterial hypertension (Chronic) Bladder cancer (Chronic) Large B-cell lymphoma (Chronic) Bilateral pulmonary embolism (Chronic) Peripheral vascular occlusive disease (Chronic) Atherosclerosis of coronary artery of [place] heart without angina pectoris (Chronic) Hyperlipidemia (Chronic) Essential (primary) hypertension (Chronic) Chemotherapy management, encounter for (Acute) Hematuria, gross (Acute) Lower urinary tract symptoms (Chronic) Lymphoma (Chronic) Obesity (Chronic) Right inguinal hernia (Chronic) Sleep apnea (Chronic) Thyromegaly (Chronic) Type 2 diabetes mellitus (Chronic) Surgical History H/O coronary artery bypass surgery (Resolved) Femoral-popliteal bypass graft occlusion, right (Chronic) H/O hernia repair (Resolved) History of appendectomy (Resolved) History of cataract extraction (Resolved) History of femoral angiogram (Resolved 11/21/12) History of right-sided carotid endarterectomy (Resolved) History of tonsillectomy and adenoidectomy (Resolved) History of transurethral destruction of bladder lesion (Resolved 12/2018) Hx of lymph node biopsy (Resolved) Family History Sister Breast cancer Diabetes Mother Diabetes Brother Heart disease Hypertension Social History (Updated 03/08/19 @ 13:22 by Brian Brown MD) Smoking Status: Former smoker how long ago did patient quit smokin years ago alcohol intake: current alcohol intake frequency: a few times a week substance use type: does not use caffeine: Yes Type: coffee Number of servings: 2 HPI HPI HPI: RANULFO NEGRETE, is a 83 M who presents to the office today for HPI HPI Surgical H&P: Yes HPI: RANULFO NEGRETE, is a 83 M who presents to the office today for left axillary lesion on CT scan and for right groin pain. Patient had PET scan recently which showed fluid collection in the left axillary region. He is also having right groin pain that has been going on for months. He did have open right inguinal hernia repair a few months ago. ROS General General: No weight change or fatigue Cardio Cardiovascular: No murmur, pacemaker, heart disease, atrial fibrillation, high blood pressure, heart attack, heart stent, palpitations, shortness of breat with exertion or chest pain Psych Psychiatric: No depression or anxiety Resp Respiratory: No shortness of breath, No sleep apnea, No cough, No COPD, No asthma, No emphysema, No wheezing Gastro Gastrointestinal: No abdominal pain, No nausea or vomiting, No diarrhea, No constipation, No blood in stool, No acid reflux, No hemorrhoids, No ulcers, No gallbladder problem, No black,tarry stools Andrea Hematologic: No blood thinners Exam Const General: cooperative Orientation: alert, oriented x3 Resp Effort & Inspection: normal respiratory effort Auscultation: clear to auscultation bilaterally Cardio Rate: regular rate Rhythm: regular rhythm Heart Sounds: no murmurs GI Inspection: non-distended Palpation: soft, nontender Other: Patient does have a recurrence of the right inguinal hernia. Assessment & Plan Problems 1. Recurrent right inguinal hernia K40.91 2. Seroma after procedure Plan 1. The patient had a left fluid collection on CT scan. Ultrasound revealed this is a seroma. I discussed the risks of bleeding and infection with the patient and then numbed up the area and under ultrasound guidance I performed aspiration of the seroma. 8 cc of fluid were aspirated. Patient tolerated the procedure well. 2. Patient does have a recurrence of his right inguinal hernia. There is a reducible bulge. I recommend robotic assisted laparoscopic inguinal hernia repair to repair it from the opposite direction as his lymphadenopathy has resolved. I discussed robotic assisted laparoscopic inguinal hernia repair with mesh with the patient. I discussed the risks including but not limited to bleeding, infection, recurrence of hernia, chronic groin pain, spermatic cord injury. I also discussed the risk of his anticoagulation. He is on Eliquis for recent PE diagnosed in January. I discussed this with Dr. Kunz and he said that it is okay to take the patient off his Eliquis for 48 hours. Brian Brown MD Pager: [facility] [address] [place] [address], [address] [place] [address] Office: Coding Level of Care Code Off vis,est,level 3 Diagnoses Recurrent right inguinal hernia K40.91 Seroma after procedure 03/08/19 1322 <Electronically signed by Brian hardy MD> Date _ Brian Brown MD I have re-examined the patient. There are no clinical changes since date of exam.
[2019-03-13 10:12] VITALS: BMI 28.0
[2019-03-20] VITALS (15 sets, daily range): BP systolic 133–167; BP diastolic 68–109; PULSE 76–91; RESP 16–20; TEMP 36–36.7; O2SAT 90–99; BMI 26.9
[2019-03-20 06:54] LABS: Hematocrit 30.6 % (40-54); Hemoglobin 10.1 g/dL (13.0-16.5); Mean Corpuscular Volume 96.8 fL (80-94); Platelet Count 129 K/mm3 (150-450); RBC Distribution Width CV 17.5 % (11.6-14.6); RBC Distribution Width SD 61.7 fl (35.1-43.9); Red Blood Count 3.16 M/mm3 (4.6-6.2); White Blood Count 4.1 K/mm3 (4.4-11.0)
[2019-03-20] MEDS: Lactated Ringers 1,000 ML 100 ML IV (07:04)
[2019-03-20 07:05] LABS: Bedside Glucose 160 mg/dL (70-110)
[2019-03-20 07:08] LABS: Anion Gap 8 (5-15); BUN 20 mg/dL (7-18); BUN/Creat Ratio 20.5 RATIO (10-20); Calcium,Total 9.4 mg/dL (8.5-10.1); Chloride 109 mmol/L (98-107); Creatinine, Serum 0.98 mg/dL (0.70-1.30); EST Glomerular Filtration Rate 78 mL/min (>60); Est Glom Filt Rate - Afr Amer 95 mL/min (>60); Estimated Creatinine Clearance 70.66 ml/min; Glucose 158 mg/dL (74-106); Potassium 3.9 mmol/L (3.5-5.1); Sodium Level 143 mmol/L (136-145)
[2019-03-20] MEDS: Cefazolin 2 GM in 0.9% Normal Saline 100 ML IV (07:32)
[2019-03-20] MEDS: Bupivacaine Mpf 0.5% 30 ML VIAL (08:51)
--- NOTE | 2019-03-20 09:33 | DCINST_ITS ---
Discharge Diet: Light diet - advance as tolerated Discharge Activity: May Not Drive - for 2 weeks, May Shower - with the bandage in place 1-2 days after surgery., - - No mowing or lifting over 10 lbs for 2 weeks Lifting Restrictions: 10 lbs for 4 weeks Additional Activity Instructions:: Climbing stairs is fine, walking is encouraged. Sitting in bed may be uncomfortable. Sitting up using your lateral muscles (sitting up sideways) is usually more comfortable. Do not drive, work heavy equipment of sign legal documents for 24 hours. If your hernia repair was an ingunial repair, you may have scrotal swelling, an ice pack and/or athletic support can provide more comfort. Pain medications may cause nausea, you should typically eat light foods as you take your pain medications. Pain medications may also cause constipation. If you have difficulty with this, discuss with your doctor. Call your doctor if your incision/area has: Continuous Slow Oozing, Sudden Increased Bleeding, Increased Pain/ Swelling, Increased Redness, Foul Smelling Discharge Call your doctor if you observe: Fever of 101 or Higher Suture Line Care: Avoid Pulling/Pushing, Avoid Pinching/Bending Change Dressing in (Days):: 3 - Leave steri-strips for 1 week. May protect with a guaze bandaid. Cleanse incision/area with: Keep Dressing Clean & Dry Allergies/Adverse Reactions: Allergies No Known Allergies Allergy (Verified 03/20/19 06:49) Medications to take at Discharge lisinopril 20 mg tablet 20 mg PO BID tab 04/05/18 lovastatin 40 mg tablet 40 mg PO QHS 04/05/18 metformin 1,000 mg tablet 1,000 mg PO BID 04/05/18 [place]-3 Fatty Acids/Fish Oil [Fish Oil 1,000 mg Capsule] 1 cap PO BID 04/10/18 Tamsulosin HCl [Flomax] 0.4 mg PO QHS 09/08/18 Metoprolol Tartrate [Lopressor (beta richard)] 50 mg PO BID 09/19/18 cholecalciferol (vitamin D3) 1,000 unit (25 mcg) tablet 1,000 unit PO BID tab 01/24/19 Apixaban [Eliquis] 5 mg PO BID 90 Days #180 tab 02/06/19 Hydrocodone Bitart/Apap 5-325 [[place] 5MG-325MG] 1 tablet PO Q6H PRN PRN 6 Days #20 tablet 03/20/19 The following prescriptions were given: Hydrocodone Bitart/Apap 5-325 [[place] 5MG-325MG] 1 tablet PO Q6H PRN PRN 6 Days #20 tablet PRN Reason: Pain Transmission Status: Sent to [facility] Orders to be completed after discharge: Hemoglobin A1c Time Frame: 03/20/19, Facility: [facility], Location: Laboratory Primary Care Physician: Livan Mcfarland MD [Primary Care Provider] - Test Results: Test results from this visit will be discussed in further detail at your follow- up appointment, if applicable. Please Follow Up With: Brian Brown MD When: Please call to schedule 2 week follow up appointment. [phone]
--- NOTE | 2019-03-20 09:42 | PCM.OPRPT ---
Problem List (1) Recurrent right inguinal hernia Status: Acute Report of Operation Date of Procedure: 03/20/19 Pre-Operative Diagnosis: Recurrent right inguinal hernia Post-Operative Diagnosis: Same Surgery/Procedure Performed:: Robotic assisted laparoscopic right inguinal hernia repair with mesh Description of Surgical Findings:: Indirect right inguinal hernia Description of Procedure: The patient was brought back to the operating room and general anesthesia was induced. The abdomen was prepped and draped in usual sterile fashion. An incision was made superior to a prior incision in the midline. This was deepened to the fascia the fascia was elevated and incised. A balloon port was placed into the abdomen and the abdomen was insufflated to 15 mmHg. The camera was inserted in the abdomen and it appeared that the patient had a right inguinal hernia. Next under direct visualization an 8 mm port was placed in the right lateral and left lateral abdominal sidewall. Next the patient was placed in a steep Trendelenburg position and the robot was docked. Using cautery scissors and grasper an incision was made in the peritoneum on the right in the lower abdomen. The peritoneum was then dissected down to the hernia sac. The hernia sac was reduced and dissection was carried inferiorly. Next a piece of pro-environmental engineer scientist mesh was placed into the right inguinal region and unfolded over the hernia defect. The peritoneum was reapproximated using a 3?0 V lock suture. There was several small defects in the peritoneum. These were closed with running 4-0 Vicryl sutures. Next the robot was undocked and the abdomen was allowed to desufflate. The ports were removed. The midline fascia was closed with a jeudop-vl-axcar 0 Vicryl suture and all of the skin incisions were injected with local anesthetic. The skin was closed with interrupted 4-0 Monocryl suture and Steri-Strips. Bandages were applied. Scrotum was checked at the end the case and both testicles are present. The patient was taken to PACU in stable condition and tolerated the procedure well.
--- NOTE | 2019-03-20 10:07 | SUR.PHASEI ---
Pt voided in PACU
== END 2019-03-20 12:14 | disposition home or self-care (01) ==
LOC: SDC 05:48 → AC 05:49
PROVIDERS: Anesthesiology; Family Provider Family Medicine; PCP Family Medicine; Referring Provider Surgery; Visit Provider Surgery
PROC: (CPT 49650; principal; 2019-03-20 07:10)
DX: K40.91 Unilateral inguinal hernia, without obstruction or gangrene, recurrent (principal); Z79.01 Long term (current) use of anticoagulants; Z79.84 Long term (current) use of oral hypoglycemic drugs; Z86.711 Personal history of pulmonary embolism; Z87.891 Personal history of nicotine dependence; E11.9 Type 2 diabetes mellitus without complications; E78.5 Hyperlipidemia, unspecified; I25.10 Atherosclerotic heart disease of native coronary artery without angina pectoris; I73.9 Peripheral vascular disease, unspecified; I27.21 Secondary pulmonary arterial hypertension; Z95.1 Presence of aortocoronary bypass graft
CPT/HCPCS: 00840; 49650; 80048; 82962; 83036; 85027; 94640; J7120; A4216; J2405

== ENCOUNTER → 2019-04-02 12:50 | Outpatient (CLI) | payer MEDICARE, OTHER, SELFPAY ==
[2019-03-13 10:12] VITALS: BMI 28.0
[2019-03-20 06:55] VITALS: BMI 26.9
--- NOTE | 2019-04-02 12:52 | CT_ITS ---
STUDY: CT ABDOMEN AND PELVIS WITH CONTRAST REASON FOR EXAM: Male, 83 years old. Restaging bladder cancer. Patient just finished chemotherapy for non-Hodgkin's lymphoma February 28, 2019 history of right inguinal surgery x 2, bladder tumor resection, appendectomy. RADIATION DOSAGE (If Supplied By Facility): CTDIvol = ( 20.57 ) mGy, DLP = ( 3197.84 ) mGycm TECHNIQUE: Transaxial images were obtained from the dome of the diaphragm to the symphysis pubis without oral contrast. IV Isovue 250 100ml was administered. Sagittal and coronal images were reconstructed. Individualized dose optimization techniques were used for this CT. COMPARISON: PET/CT February 19, 2019; CT abdomen and pelvis without contrast December 25, 2018. FINDINGS: The visualized lung bases are unremarkable. The heart size is normal. There are atherosclerotic calcifications in the coronary arteries and visualized distal descending thoracic aorta. Normal liver. The patent portal vein diameter is 15 mm. The gallbladder is contracted. The diameter of the common bile duct is 5 mm. There are multiple benign calcified granulomata of the spleen. Normal pancreas. Normal bilateral adrenal glands. Normal right kidney. Exophytic 7.3 x 5.2 x 5.5 cm cortical cyst at the anterior upper pole of the left kidney is unchanged. Right double-J ureteral stent has been removed since December 2018. No hydronephrosis. Normal visualized stomach. Normal small intestine. There is a rare sigmoid diverticulum, otherwise normal colon. There are surgical clips in the region of the appendix consistent with a prior appendectomy. There is moderately diffuse, partially calcified atherosclerotic plaquing of the abdominal aorta and iliofemoral arteries, without a demonstrated aortic aneurysm. There is 1.7 cm fusiform ectasia of the right common iliac artery Normal inferior vena cava. Left nodes nodes of the retroperitoneum are notably decreased in size from December 2018. Right common iliac node, for example, has decreased from 2.4 x 1.9 cm to 1.45 x 0.95 cm. Borderline mural thickening of the urinary bladder, difficult to assess due to incomplete distention. Normal visualized prostate gland. There is focal midline scarring in the umbilical and infraumbilical tissues of the anterior abdominal wall. 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 There is a pseudoarticulation of its hypertrophied right transverse process of the upper right sacral ala. There are stable osteoarthritic degenerative changes at the hips, greater on the left. CT/Abdomen/Pelvis WITH Contrast IMPRESSION: 1. Notably improved retroperitoneal adenopathy. 2. Atherosclerotic vascular calcifications again noted. There is stable 1.7 cm fusiform ectasia of the right common iliac artery. 3. Double-J ureteral stent is been removed since prior exam. Borderline mural thickening of the urinary bladder is also improved. No hydronephrosis. 4. 7 cm cortical cyst at the anterior upper pole left kidney is unchanged. 5. Stable degenerative changes of the spine and hips. Electronically Signed: Hay Telles MD at 14:32 EDT , Service support ,
--- NOTE | 2019-04-02 12:53 | CT_ITS ---
STUDY: CT CHEST/THORAX WITH CONTRAST REASON FOR EXAM: Male, 83 years old. Restaging bladder cancer. Patient just finished chemotherapy for non-Hodgkin's lymphoma February 28, 2019 history of right inguinal surgery x 2, bladder tumor resection, appendectomy. RADIATION DOSAGE (If Supplied By Facility): CTDIvol = ( 20.57 ) mGy, DLP = ( 3197.84 ) mGycm TECHNIQUE: Transaxial imaging was performed following intravenous administration of IV Isovue 300 100ml. Multiplanar coronal and sagittal images were reformatted. Individualized dose optimization techniques were used for this CT. COMPARISON: PET/CT February 19, 2019; CTA chest January 10, 2019. FINDINGS: Stable, smoothly defined but irregularly marginally enhancing 6.8 x 3.35 x 4.1 cm left thyroid mass. A cluster of surgical clips are seen at its superior margin. The hub of a MediPort is again seen in the subcutaneous tissues of the upper anterior right chest wall near the level of the clavicle. Its catheter extends to the cavoatrial junction. Centrilobular emphysematous changes predominate in the lung apices. There is a stable 8.5 mm calcified granuloma in the anterior periphery of the right upper lobe. Stable minor scarring and/or subsegmental volume loss in the posterior periphery of the right upper lobe and bilateral lower lobes, as well as curvilinear density of probable scarring in the anterior lingula of left upper lobe. There is no demonstrated pleural abnormality. Normal heart size and pericardium. There are calcifications of the coronary arteries. Sternal cerclage wires and vascular clips are present from a prior sternotomy and coronary artery bypass graft procedure (CABG). There are stable partially calcified right hilar and mediastinal lymph nodes. A cluster of nonspecific lymph nodes in the aortopulmonary window is mildly less conspicuous today. Normal left hilar region. Normal enhanced pulmonary arteries. There is stable mild atherosclerotic calcification of the aortic arch. There is a 4 x 3.85 cm fusiform ectasia of the mid ascending aorta (series 601 image 99, series 602 image 192). There are stable mild multi-level degenerative changes of the thoracic spine. There is a stable well-defined 2.9 x 2.3 x 2.95 cm fluid-filled pocket suggesting a seroma in the subcutaneous tissues of the lower left axilla. There are a few stable calcified granulomata in the spleen. CT/Chest WITH Contrast IMPRESSION: 1. The bilateral pulmonary emboli seen on prior CTA chest have cleared. 2. Stable 6.8 cm marginally enhancing left thyroid mass. 3. Centrilobular emphysematous changes as well as scattered areas of subsegmental scarring/volume loss and scattered in the lung huerta again noted. 4. Stable findings of old calcified granulomatous disease. 5. Atherosclerotic vascular calcifications present. Patient has undergone prior median sternotomy and CABG. The heart size is normal. 6. There is a 4 cm fusiform ectasia of the mid descending aorta. No demonstrated dissection. 7. Stable 2.95 cm possible seroma in the subcutaneous cast tissues of the lower left axilla. 8. Right chest wall MediPort again noted. Electronically Signed: Hay Telles MD at 14:12 EDT , Service support ,
[2019-04-02] MEDS: 0.9% Saline Lock 10 ML Syringe IV (13:15)
== END ==
PROVIDERS: Family Provider Family Medicine; PCP Family Medicine; Referring Provider Nurse Practitioner Family; Visit Provider Nurse Practitioner Family
DX: Z45.2 Encounter for adjustment and management of vascular access device (principal); C67.9 Malignant neoplasm of bladder, unspecified; C85.90 Non-Hodgkin lymphoma, unspecified, unspecified site
CPT/HCPCS: 71260; 74177; Q9967; A4216

== ENCOUNTER → 2019-04-16 17:44 | Outpatient (CLI) | payer MEDICARE, OTHER, SELFPAY ==
[2019-04-06 13:09] VITALS: BMI 26.9
--- NOTE | 2019-04-16 10:45 | CYSPIN_PTH ---
PATIENT: RANULFO NEGRETE LOC: [facility] U#:[id number] AGE/SX: 89/M ROOM: RE04/16/[address]: Dr. Joe Phillip MD : 1935 BED: DIS: SPEC #: [id number] RECD: 04/16/19 17:39 STATUS: EMY RETommy #: [id number] LEN: 04/16/19 10:[address]: Joe Phillip DEPT: CYTOLOGY RECD BY: Darell Parsons ENTERED: 04/17/19 09:46 SP TYPE: CYSPIN FL OTHR DR: Dr. Livan Mcfarland MD Tissues: Urine Procedures: Pap Stain (control) Special Stain Group II Cytospin Fluid HEADER OPERATION: Not noted PRE-OP DIAGNOSIS: History bladder CA TISSUE SUBMITTED: Urine for cytology DIAGNOSIS CYTOLOGY Urine for cytology (cytospin): Malignant cells present derived from urothelial carcinoma. 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 Case has been reviewed in consultation with Dr. Wellington who concurs with the above diagnosis. IDC:AM CYTOLOGY STUDY Slides are reviewed. CYTOLOGY GROSS Received is 30 ml of yellow cloudy fluid labeled with the patient's name and and designated per the requisition as urine. Submitted for cytology preparation. / rg 04/17/19 TC:0 CPT: 92731
[2019-04-16 17:47] LABS: Cytology, Body Fluid / CSF SEE PATHOLOGY REPORT
== END ==
PROVIDERS: Family Provider Family Medicine; PCP Family Medicine; Referring Provider Urology; Visit Provider Urology
DX: Z85.51 Personal history of malignant neoplasm of bladder (principal)
CPT/HCPCS: 88108; 88313

== ENCOUNTER → 2019-05-01 17:02 | Outpatient (CLI) | payer MEDICARE, OTHER, SELFPAY ==
[2019-04-06 13:09] VITALS: BMI 26.9
--- NOTE | 2019-05-01 | IMM_PTH ---
PATIENT: RANULFO NEGRETE LOC: [facility] U#:[id number] AGE/SX: 89/M ROOM: RE05/01/[address]: Dr. Joe Phillip MD : 1935 BED: DIS: SPEC #: [id number] RECD: 05/03/19 10:36 STATUS: EMY REQ #: [id number] LEN: 05/01/19 00:[address]: Joe Phillip DEPT: IMMUNOHISTOCHEMISTRY RECD BY: Angelia Stevens ENTERED: 05/03/19 10:37 SP TYPE: IMMUNO OTHR DR: Dr. Livan Mcfarland MD Tissues: Urinary bladder, NOS Procedures: CK20 (add) CD44 (add) CK7 (initial) PHYSICIAN & INSTITUTION [place] [address] SPECIMEN INFORMATION: Tissue Source: Bladder biopsy Clinical Info: Bladder lesion Specimen Number: [id number] CPT code: 96365, 36862 x2 METHODOLOGY: Deparaffinized sections of prefer/formalin-fixed tissue or PAP/DQ stained slides are incubated with monoclonal/polyclonal antibodies/oligonucleotide probes. Localization is made via biotin free immunoperoxidase method. Appropriate controls are performed and reacted as expected. Results on target cell population are indicated in the following table: RESULTS: ANTIBODY / CLONE RESULT CK7 (OV-TL12/30) positive CK20 (KS20.8) positive anti-CD44 (SP37) positive These tests were developed and their performance characteristics determined by [facility]. They may not have been cleared or approved by the U.S. Food and Drug Administration. The FDA has determined that such clearance or approval is not necessary. The above immunohistochemical/dualISH markers are ordered and reviewed by the Pathologist. INTERPRETATION: Bladder biopsy: Consistent with minute fragment of urothelial carcinoma. AM:zion 05/04/19
--- NOTE | 2019-05-01 | BLA_PTH ---
PATIENT: RANULFO NEGRETE LOC: [facility] U#:[id number] AGE/SX: 89/M ROOM: RE05/01/[address]: Dr. Joe Phillip MD : 1935 BED: DIS: SPEC #: [id number] RECD: 05/01/19 15:00 STATUS: EMY RODRIGO #: [id number] LEN: 05/01/19 00:[address]: Joe Phillip DEPT: SURGICAL PATHOLOGY RECD BY: Linsey Casiano ENTERED: 05/02/19 09:55 SP TYPE: BLADDER BX OTHR DR: Dr. Livan Mcfarland MD Tissues: Urinary bladder, NOS Procedures: Surgery Specimen Level IV HEADER OPERATION: Bladder biopsy PRE-OP DIAGNOSIS: Bladder lesion TISSUE SUBMITTED: Bladder biopsy MICROSCOPIC DIAGNOSIS Urinary bladder, biopsy: Detached minute fragment of urothelial carcinoma. See comment. AM:zion 05/03/19 COMMENT Immunohistochemistry ([id number]) supports the above diagnosis. Reference is made to the patient's previous urinary bladder tumor, TUR from 2018 ([id number]) in which urothelial carcinoma was identified. Case has been reviewed in consultation with Dr. Valdez who concurs with the above diagnosis. IDC:JOANNE MICROSCOPIC DESCRIPTION Slides are reviewed. GROSS DESCRIPTION Received in fixative is one container labeled with the patient's name and designated bladder biopsy. The specimen consists of two fragments of bean soft tissue each measuring 0.1 cm and <0.1 in greatest dimension. The specimen is totally submitted in one cassette. / JOANNE:zion 05/02/19 TC:0 CPT: 00604
== END ==
PROVIDERS: Family Provider Family Medicine; PCP Family Medicine; Referring Provider Urology; Visit Provider Urology
DX: N32.9 Bladder disorder, unspecified (principal)
CPT/HCPCS: 88305; 88341; 88342

== ENCOUNTER → 2019-08-20 10:22 | Outpatient (CLI) | payer MEDICARE, OTHER, SELFPAY ==
[2019-08-14 15:09] VITALS: BMI 30.4
[2019-08-20 13:31] LABS: Anion Gap 9 (5-15); BUN 23 mg/dL (7-18); Calcium,Total 9.7 mg/dL (8.5-10.1); Chloride 107 mmol/L (98-107); Cholesterol 137 mg/dL (200); Creatinine, Serum 1.28 mg/dL (0.70-1.30); EST Glomerular Filtration Rate 57 mL/min (>60); Est Glom Filt Rate - Afr Amer 69 mL/min (>60); Glucose 171 mg/dL (74-106); High Density Lipoprotein 39 mg/dL; Potassium 4.3 mmol/L (3.5-5.1); Sodium Level 143 mmol/L (136-145); Triglycerides 131 mg/dL; Very Low Density Lipoprotein 26 mg/dL (5-40)
== END ==
PROVIDERS: PCP Family Medicine; Referring Provider Family Medicine; Visit Provider Family Medicine
DX: E78.5 Hyperlipidemia, unspecified (principal); E11.9 Type 2 diabetes mellitus without complications
CPT/HCPCS: 36415; 80048; 80061

== ENCOUNTER → 2019-09-11 16:03 | Outpatient (CLI) | payer MEDICARE, OTHER, SELFPAY ==
[2019-08-14 15:09] VITALS: BMI 30.4
--- NOTE | 2019-09-11 11:56 | CYSPIN_PTH ---
PATIENT: RANULFO NEGRETE LOC: [facility] U#:[id number] AGE/SX: 89/M ROOM: RE09/11/[address]: Dr. Joe Phillip MD : 1935 BED: DIS: SPEC #: [id number] RECD: 09/12/19 08:15 STATUS: EMY RETommy #: [id number] LEN: 09/11/19 11:[address]: Joe Phillip DEPT: CYTOLOGY RECD BY: Darell Parsons ENTERED: 09/12/19 08:15 SP TYPE: CYSPIN FL OTHR DR: Dr. Livan Mcfarland MD Tissues: Urine Procedures: Pap Stain (control) Special Stain Group II Cytospin Fluid HEADER OPERATION: Not noted PRE-OP DIAGNOSIS: Bladder neoplasm TISSUE SUBMITTED: Urine for cytology DIAGNOSIS CYTOLOGY Urine for cytology (cytospin): Malignant cells present derived from urothelial carcinoma. See comment. 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 Case has been reviewed in consultation with Dr. Wellington who concurs with the above diagnosis. IDC:AM CYTOLOGY STUDY Slides are reviewed. CYTOLOGY GROSS Received is 20 ml of yellow cloudy fluid labeled with the patient's name and and designated per the requisition as urine. Submitted for cytology preparation. / zion 09/12/19 TC:0 CPT: 85475
[2019-09-11 16:18] LABS: Cytology, Body Fluid / CSF SEE PATHOLOGY REPORT
== END ==
PROVIDERS: PCP Family Medicine; Referring Provider Urology; Visit Provider Urology
DX: C67.9 Malignant neoplasm of bladder, unspecified (principal); C67.8 Malignant neoplasm of overlapping sites of bladder
CPT/HCPCS: 88108; 88313

== ENCOUNTER 2019-09-21 06:31 | Day surgery (SDC) | payer MEDICARE, OTHER, SELFPAY ==
[2019-08-14 15:09] VITALS: BMI 30.4
--- NOTE | 2019-09-21 06:42 | EKG12_ITS ---
Test Reason : PREOP Blood Pressure : / mmHG Vent. Rate : 059 BPM Atrial Rate : 059 BPM P-R Int : 142 ms QRS Dur : 128 ms QT Int : 412 ms P-R-T Axes : 070 -39 061 degrees QTc Int : 407 ms Sinus bradycardia Left axis deviation Left bundle branch block Abnormal ECG When compared with ECG of 10-JAN-2019 17:37, T wave inversion no longer evident in Inferior leads Nonspecific T wave abnormality, improved in Anterolateral leads QT has shortened Confirmed by WAYLON BROWN ([id number]), telegraph editor MEHDI ARAUJO ([id number]) on 09/24/2019 11:39:17 AM Referred By: Joe Phillip Confirmed By:WAYLON BROWN
[2019-09-21 06:48] VITALS: BP 137/66; PULSE 58; RESP 16; TEMP 36.7; O2SAT 98; BMI 28.9
[2019-09-21] MEDS: Lactated Ringers 1,000 ML 100 ML IV (07:04)
[2019-09-21 07:07] LABS: Hematocrit 33.8 % (40-54); Hemoglobin 11.4 g/dL (13.0-16.5); Mean Corp Hgb Conc 33.7 g/dL (32-36); Mean Corpuscular Hgb 34.3 pg (27.0-32.0); Mean Corpuscular Volume 101.8 fL (80-94); Mean Platelet Vol. 9.6 fl (6.2-12.0); Platelet Count 141 K/mm3 (150-450); RBC Distribution Width CV 14.8 % (11.6-14.6); RBC Distribution Width SD 55.4 fl (35.1-43.9); Red Blood Count 3.32 M/mm3 (4.6-6.2); White Blood Count 4.4 K/mm3 (4.4-11.0)
[2019-09-21 07:15] LABS: Bedside Glucose 176 mg/dL (70-110)
[2019-09-21 07:21] LABS: Anion Gap 5 (5-15); BUN 22 mg/dL (7-18); BUN/Creat Ratio 17.9 RATIO (10-20); Calcium,Total 9.4 mg/dL (8.5-10.1); Chloride 111 mmol/L (98-107); Creatinine, Serum 1.23 mg/dL (0.70-1.30); EST Glomerular Filtration Rate 60 mL/min (>60); Est Glom Filt Rate - Afr Amer 72 mL/min (>60); Estimated Creatinine Clearance 55.34 ml/min; Glucose 186 mg/dL (74-106); Partial Thromboplast Time 31.7 Seconds (24.1-36.2); Potassium 4.2 mmol/L (3.5-5.1); Prothrombin Time (Protime)PT. 12.9 SECONDS (11.7-14.9); Sodium Level 142 mmol/L (136-145)
--- NOTE | 2019-09-21 08:50 | BLA_PTH ---
PATIENT: RANULFO NEGRETE [place] [facility] [place]#:[id number] AGE/SX: 84/M ROOM: RE09/21/[address]: Dr. Joe Phillip MD : 1935 BED: DIS: 09/21/2019 SPEC #: [id number] RECD: 09/21/19 09:58 STATUS: EMY RETommy #: [id number] LEN: 09/21/19 08:[address]: Joe Phillip DEPT: SURGICAL PATHOLOGY RECD BY: Darell Parsons ENTERED: 09/21/19 10:29 SP TYPE: BLADDER BX OTHR DR: Dr. Livan Mcfarland MD Tissues: Urinary bladder, NOS Procedures: Surgery Specimen Level IV HEADER OPERATION: Cysto, transurethral resection bladder PRE-OP DIAGNOSIS: Bladder tumor cancer TISSUE SUBMITTED: Bladder tumor tissue MICROSCOPIC DIAGNOSIS Bladder tumor tissue, TUR: Urothelial carcinoma. See cancer summary below. SJ:zion 09/24/19 BLADDER CANCER (TUR) SUMMARY Procedure: Transurethral resection of bladder (TURBT) Tumor site: not specified Histologic type: Papillary urothelial carcinoma, noninvasive - Urothelial carcinoma in situ. - Focal endophytic pattern. Associated epithelial lesions: None identified Histologic grade: high grade (3/3) Muscularis propria presence: No muscularis propria (detrusor muscle) identified. Lymphovascular invasion: Not identified Tumor extension: Non-invasive papillary carcinoma. - Carcinoma in situ. Additional pathologic findings: Mild chronic inflammation and cautery artifact. The above summary is in compliance with [employer] (CAP) Cancer Protocols Checklist and [place] [employer] Committee on Cancer (AJCC), Staging Manual, 8th Ed. 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 Case has been reviewed in consultation with Dr. Wellington who concurs with the above diagnosis. IDC:AM MICROSCOPIC DESCRIPTION Slides are reviewed. GROSS DESCRIPTION Received in fixative is one container labeled with the patient's name and designated bladder tumor tissue. The specimen consists of two irregular fragments of light bean soft tissue that in aggregate measure 0.5 x 0.3 x 0.1 cm. The specimen is totally submitted in one cassette. / JOANNE:zion 09/21/19 TC:0 CPT:23844
--- NOTE | 2019-09-21 09:18 | PCM.DC.URO ---
Discharge Diet: No Restrictions Discharge Activity: Return to Normal Activity, May Not Drive - for 2 days. Additional Activity Instructions:: Please be aware that pain medications may cause nausea. You should typically eat light foods as you take your pain medication. Pain medication may cause constipation, if this is a problem for you, please discuss with your doctor. Call your doctor if your incision/area has: Sudden Increased Bleeding Allergies/Adverse Reactions: Allergies No Known Allergies Allergy (Verified 09/18/19 09:00) Medications to take at Discharge lisinopril 20 mg tablet 20 mg PO BID tab 04/05/18 lovastatin 40 mg tablet 40 mg PO QHS 04/05/18 metformin 1,000 mg tablet 1,000 mg PO BID 04/05/18 [place]-3 Fatty Acids/Fish Oil [Fish Oil 1,000 mg Capsule] 1 cap PO BID 04/10/18 Tamsulosin HCl [Flomax] 0.4 mg PO QHS 09/08/18 Metoprolol Tartrate [Lopressor (beta richard)] 50 mg PO BID 09/19/18 cholecalciferol (vitamin D3) 25 mcg (1,000 unit) tablet 25 mcg PO BID tab 01/24/19 Apixaban [Eliquis] 5 mg PO BID 90 Days #180 tab 02/06/19 Ferrous Sulfate [High Potency Iron] 65 mg PO DAILY 04/05/19 amlodipine 10 mg tablet 10 mg PO DAILY #90 tab 08/14/19 Mirabegron [Myrbetriq] 50 mg PO DAILY 09/18/19 Primary Care Physician: Livan Mcfarland MD [Primary Care Provider] - Test Results: Test results from this visit will be discussed in further detail at your follow-up appointment, if applicable. Please Follow Up With: Joe Phillip MD When: in 2 weeks, please call to make an appointment.
--- NOTE | 2019-09-21 09:21 | PCM.OPRPT ---
Report of Operation Date of Procedure: 09/21/19 Pre-Operative Diagnosis: Recurrence of bladder cancer, multiple tumors. In overlapping sites Post-Operative Diagnosis: Same Surgery/Procedure Performed:: Transurethral resection of bladder tumors multiple, medium in size. Instillation of mitomycin-C Description of Surgical Findings:: This is a male patient with a tumor within the bladder and we plan to proceed with transurethral resection of bladder tumor or multiple tumors of more tumors were found. We talked what the natural history of bladder cancer, the high recurrence rate. We talked about the surgery today what to expect afterwards we discussed the risk of bleeding from the bladder, difficulty with urinating, requiring a catheter, discussed the procedure itself how it is performed and the goal of the surgery to remove all the tumors of possible is also realizes that its possible not all fragments will be able to be removed all possible that no cancer will be able to be resected he may require more than one procedure. Patient may have recurrence of cancer that requires further treatment. Also he understands is possible given chemotherapy at the end of the treatment if it is deemed safe. Talked about the risk of anesthesia the risk of infection and bleeding with the procedure after all the questions were addressed he was taken back to the operating room and he signed the consent form. Patient was taken back to the operating room after smooth induction of general anesthesia he was placed supine on the table. He was placed in dorsolithotomy position with the legs in stirrups made sure the all pressure points were padded. He had SCDs on for DVT prophylaxis and was loaded with antibiotics. Penis and testicles were prepped and draped in usual sterile fashion. I went into the urethra with a rigid cystoscopy the urethral findings were mild mid urethral stricture. The prostate was then inspected and the prostatic findings were bilateral hypertrophy with obstruction no median lobe. I then went into the bladder and inspected the trigone right lateral wall, left right lateral wall, posterior wall and dome of the bladder with direct visualization. All tumors that were seen on cystoscopy were noted. I then removed the cystoscope dilated the urethra with sounds if necessary and then advanced a resectoscope into the bladder. I then resected the tumors as noted prior. The tumor size was 2 cm tumor in the trigone. Located and the following locations trigone 2 cm tumor left lateral wall 1 cm tumor posterior wall 1 cm tumor dome of the bladder half a centimeter tumor left lateral wall half a centimeter lesion. After all the tumors were resected and cauterized there were no visible tumors. The condition of the left ureteral orifice was prior resection and resected back with a patent open and effluxing . The condition of the right ureteral orifice was normal and on resected. We then drained the bladder nature all the tumors were removed from the bladder and handed off as a specimen. I then placed the catheter into the bladder and instilled 40 mg of mitomycin-C into the bladder for a post instillation dose of chemotherapy after resection of tumors. Patient was taken back to the PACU in stable condition. Type of Anesthesia:: General - We have Drains: none - Admit VTE Documentation VTE Present on Admission: No VTE Mechan Device Prophylaxis: SCD's
[2019-09-21 09:24] VITALS: BP 137/66; BP 140/69; PULSE 70; RESP 16; TEMP 36.1; O2SAT 93
[2019-09-21 09:30] VITALS: BP 123/69; BP 137/66; PULSE 68; RESP 18; O2SAT 95
[2019-09-21 09:36] LABS: Bedside Glucose 144 mg/dL (70-110)
[2019-09-21 09:44] VITALS: BP 131/65; BP 137/66; PULSE 74; RESP 18; TEMP 36.1; O2SAT 100
[2019-09-21 11:23] VITALS: BP 126/74; BP 137/66; PULSE 76; RESP 18; TEMP 36.2; O2SAT 100
== END 2019-09-21 11:25 | disposition home or self-care (01) ==
LOC: SDC 06:31 → AC 06:32
PROVIDERS: Anesthesiology; PCP Family Medicine; Referring Provider Urology; Visit Provider Urology
PROC: 0T5B8ZZ Destruction of Bladder, Via Natural or Artificial Opening Endoscopic (ICD-10-PCS; CPT 51720; principal; 2019-09-21 08:40)
DX: D09.19 Carcinoma in situ of other urinary organs (principal); C67.8 Malignant neoplasm of overlapping sites of bladder; N40.1 Benign prostatic hyperplasia with lower urinary tract symptoms; I44.7 Left bundle-branch block, unspecified; E11.9 Type 2 diabetes mellitus without complications; Z95.1 Presence of aortocoronary bypass graft; Z86.711 Personal history of pulmonary embolism; R94.31 Abnormal electrocardiogram [ECG] [EKG]; R00.1 Bradycardia, unspecified; Z87.891 Personal history of nicotine dependence; D64.9 Anemia, unspecified; R23.3 Spontaneous ecchymoses
CPT/HCPCS: 51720; 52235; 80048; 82962; 83036; 85027; 85610; 85730; 88305; 93005; J7120; A4216; J2405; J3490; J9280

== ENCOUNTER → 2020-02-18 10:09 | Outpatient (CLI) | payer MEDICARE, OTHER, SELFPAY ==
[2020-02-13 09:45] VITALS: BMI 31.3
[2020-02-18 12:47] LABS: Anion Gap 7 (5-15); BUN 21 mg/dL (7-18); BUN/Creat Ratio 14.9 RATIO (10-20); Calcium,Total 9.5 mg/dL (8.5-10.1); Chloride 107 mmol/L (98-107); Cholesterol 129 mg/dL (200); Creatinine, Serum 1.41 mg/dL (0.70-1.30); EST Glomerular Filtration Rate 51 mL/min (>60); Est Glom Filt Rate - Afr Amer 62 mL/min (>60); Glucose 190 mg/dL (74-106); High Density Lipoprotein 31 mg/dL; Potassium 4.4 mmol/L (3.5-5.1); Sodium Level 141 mmol/L (136-145); Triglycerides 149 mg/dL; Very Low Density Lipoprotein 30 mg/dL (5-40)
[2020-02-18 12:48] LABS: Hemoglobin A1c 7.1 % (3.8-5.6)
[2020-02-18 13:01] LABS: Microalbumin,Random Urine 73.2 mg/L (NO RANGE EST.)
== END ==
PROVIDERS: PCP Family Medicine; Referring Provider Family Medicine; Visit Provider Family Medicine
DX: I10 Essential (primary) hypertension (principal); E78.5 Hyperlipidemia, unspecified; E11.9 Type 2 diabetes mellitus without complications
CPT/HCPCS: 36415; 80048; 80061; 82043; 83036

== ENCOUNTER → 2020-02-21 09:22 | Outpatient (CLI) | payer MEDICARE, OTHER, SELFPAY ==
[2020-02-13 09:45] VITALS: BMI 31.3
--- NOTE | 2020-02-21 09:24 | ART_ITS ---
Reason For Study: decreased pedal pulses and PVD Procedure A bilateral lower extremity continuous wave Doppler with analog waveform analysis,segmental pressures,and ankle brachial indexes without exercise. Left Segmental Pressures Left brachial= 134mmHg. Left thigh = 147mmHg. Left calf = 127mmHg. Left posterior tibial artery = 108mmHg. Left dorsalis pedis artery = 124mmHg. Left digit = 124 mmHg. The left posterior tibial artery waveforms are biphasic. The left dorsalis pedis waveforms are triphasic. Right Segmental Pressures Right brachial= 128mmHg. Right thigh = 94mmHg. Right calf = 67mmHg. Right posterior tibial artery = 66mmHg. Right dorsalis pedis artery = 68mmHg. Right digit = 46 mmHg. The right dorsalis pedis waveforms are monophasic. The right posterior tibial artery waveforms are monophasic. Indices The right ankle brachial index by the dorsalis pedis is .51. The right ankle brachial index by the posterior tibial artery is .49. The right digital-brachial index is .34. The left ankle brachial index by the dorsalis pedis is .93. The left ankle brachial index by the posterior tibial artery is .81. The left digital-brachial index is .93. Prelim called to [facility]. Interpretation Summary Severe or multi level peripheral arterial occlusive disease right lower extremity based upon ankle- brachial indices and monophasic Doppler waveforms. Abnormal right digital brachial indices Moderately severe left lower extremity arterial occlusive disease Ordering Physician: Dorinda Manuel Performed By: STACIE WALLS RVT
== END ==
PROVIDERS: PCP Family Medicine; Referring Provider Physician Assistant Medical; Visit Provider Physician Assistant Medical
DX: I73.9 Peripheral vascular disease, unspecified (principal)
CPT/HCPCS: 93923; 96523

== ENCOUNTER → 2020-03-03 10:48 | Outpatient (CLI) | payer MEDICARE, OTHER, SELFPAY ==
[2020-02-13 09:45] VITALS: BMI 31.3
[2020-03-03 11:15] LABS: Hematocrit 36.8 % (40-54); Hemoglobin 11.6 g/dL (13.0-16.5); Mean Corp Hgb Conc 31.5 g/dL (32-36); Mean Corpuscular Hgb 33.1 pg (27.0-32.0); Mean Corpuscular Volume 105.1 fL (80-94); Mean Platelet Vol. 9.5 fl (6.2-12.0); Platelet Count 179 K/mm3 (150-450); RBC Distribution Width SD 53.9 fl (35.1-43.9); White Blood Count 6.8 K/mm3 (4.4-11.0)
[2020-03-03 11:44] LABS: Anion Gap 5 (5-15); BUN 28 mg/dL (7-18); BUN/Creat Ratio 17.6 RATIO (10-20); Calcium,Total 9.7 mg/dL (8.5-10.1); Chloride 109 mmol/L (98-107); Creatinine, Serum 1.59 mg/dL (0.70-1.30); EST Glomerular Filtration Rate 44 mL/min (>60); Est Glom Filt Rate - Afr Amer 54 mL/min (>60); Glucose 184 mg/dL (74-106); Potassium 4.7 mmol/L (3.5-5.1); Sodium Level 140 mmol/L (136-145)
== END ==
PROVIDERS: PCP Family Medicine; Referring Provider Urology; Visit Provider Urology
DX: Z01.810 Encounter for preprocedural cardiovascular examination (principal); I10 Essential (primary) hypertension
CPT/HCPCS: 36415; 80048; 85027; 93005

== ENCOUNTER → 2020-03-17 10:09 | Outpatient (CLI) | payer MEDICARE, OTHER, SELFPAY ==
[2020-02-13 09:45] VITALS: BMI 31.3
== END ==
PROVIDERS: PCP Family Medicine; Referring Provider Urology; Visit Provider Urology
DX: Z11.59 Encounter for screening for other viral diseases (principal)
CPT/HCPCS: 87635; C9803; U0003

== ENCOUNTER → 2020-03-21 16:15 | Outpatient (CLI) | payer MEDICARE, OTHER, SELFPAY ==
[2020-02-13 09:45] VITALS: BMI 31.3
--- NOTE | 2020-03-21 09:50 | BLA_PTH ---
PATIENT: RANULFO NEGRETE LOC: [facility] U#:[id number] AGE/SX: 89/M ROOM: RE03/21/[address]: Dr. Joe Phillip MD : 1935 BED: DIS: SPEC #: [id number] RECD: 03/21/20 15:00 STATUS: EMY WALLACE #: [id number] LEN: 03/21/20 09:[address]: Joe Phillip DEPT: SURGICAL PATHOLOGY RECD BY: Linsey Casiano ENTERED: 03/24/20 06:51 SP TYPE: BLADDER BX OTHR DR: Dr. Livan Mcfarland MD [facility] Tissues: Urinary bladder, NOS Procedures: Surgery Specimen Level IV HEADER OPERATION: Cystoscopy, bladder biopsy and fulguration of bladder tumor PRE-OP DIAGNOSIS: Malignant neoplasm of overlapping sites of bladder TISSUE SUBMITTED: Bladder tumor small MICROSCOPIC DIAGNOSIS Bladder tumor, biopsy: A minute fragment of urothelial carcinoma, grade 3/3. Lamina propria invasion - not identified. Lymphvascular invasion - not identified. Detrusor muscle invasion - detrusor muscle is not present in the submitted specimen. See comment. JOANNE:zion 03/25/20 COMMENT Please make reference to previous specimens ([id number]) urinary bladder tumor, TUR with diagnosis of urothelial carcinoma, ([id number]) bladder posterior wall, biopsy with diagnosis of invasive urothelial carcinoma and ([id number]) urinary bladder, biopsy with diagnosis of detached minute fragment of urothelial carcinoma and ([id number]) bladder tumor tissue, TUR with diagnosis of urothelial carcinoma. MICROSCOPIC DESCRIPTION Slides are reviewed. GROSS DESCRIPTION Received is one container labeled with the patient's name and not further designated. The specimen consists of a minute piece of bean soft tissue measuring 0.1 cm in greatest dimension. The specimen is totally submitted in one cassette. / JOANNE:zion 03/24/20 TC:0 CPT: [id number]
== END ==
PROVIDERS: PCP Family Medicine; Visit Provider Urology
DX: C67.8 Malignant neoplasm of overlapping sites of bladder (principal)
CPT/HCPCS: 88305

== ENCOUNTER → 2020-04-07 18:06 | Outpatient (CLI) | payer MEDICARE, OTHER, SELFPAY ==
[2020-02-13 09:45] VITALS: BMI 31.3
== END ==
PROVIDERS: PCP Family Medicine; Referring Provider Nurse Practitioner Adult Health; Visit Provider Nurse Practitioner Adult Health
DX: Z48.816 Encounter for surgical aftercare following surgery on the genitourinary system (principal)
CPT/HCPCS: 87086

== ENCOUNTER → 2020-06-09 11:28 | Outpatient (CLI) | payer MEDICARE, OTHER, SELFPAY ==
[2020-05-22 14:18] VITALS: BMI 31.9
--- NOTE | 2020-06-09 11:31 | VDLE_ITS ---
Reason For Study: RLE PAIN RIGHT GSV is normal. CFV is compressible, spontaneous, phasic, competent and demonstrates normal augmentation. FV is compressible, spontaneous, phasic, competent and demonstrates normal augmentation. POP V is compressible, spontaneous, phasic, competent and demonstrates normal augmentation. T/P Trunk is compressible. PTV is compressible. RT PerV is compressible. Procedure This is a venous duplex using B-mode, color flow and spectral Doppler. Exam performed in department. The study was technically difficult. A preliminary report was called and/or faxed to Dr. Mcfarland @ [phone] @ 12:20 pm. Interpretation Summary Deep veins of the right lower extremity are patent and compressible segmentally. There is no evidence of right lower extremity deep vein thrombosis. Valvular competence appears intact within the proximal deep venous system on the right . The right great saphenous vein appears patent and compressible segmentally. Ordering Physician: Livan Mcfarland Referring Physician: Livan Mcfarland Performed By: Priya Shore, RDCS, RVT
== END ==
PROVIDERS: PCP Family Medicine; Referring Provider Family Medicine; Visit Provider Family Medicine
DX: M79.661 Pain in right lower leg (principal)
CPT/HCPCS: 93971

== ENCOUNTER → 2020-06-18 09:49 | Outpatient (CLI) | payer MEDICARE, OTHER, SELFPAY ==
[2020-05-22 14:18] VITALS: BMI 31.9
--- NOTE | 2020-06-18 09:52 | ART_ITS ---
Reason For Study: Atherosclerosis Procedure A bilateral lower extremity continuous wave Doppler with analog waveform analysis,segmental pressures,and ankle brachial indexes without exercise. Left Segmental Pressures Left brachial= 119mmHg. Left thigh = 124mmHg. Left calf = 91mmHg. Left posterior tibial artery = 106mmHg. Left dorsalis pedis artery = 118mmHg. Left digit = 92 mmHg. The left dorsalis pedis waveforms are biphasic. The left posterior tibial artery waveforms are triphasic. Right Segmental Pressures Right brachial= 121mmHg. Right thigh = 101mmHg. Right calf = 49mmHg. Right posterior tibial artery = 69mmHg. Right dorsalis pedis artery = 65mmHg. Right digit = 30 mmHg. The right dorsalis pedis waveforms are monophasic. The right posterior tibial artery waveforms are monophasic. Indices The right ankle brachial index by the dorsalis pedis is 0.54. The right ankle brachial index by the posterior tibial artery is 0.57. The right digital-brachial index is 0.25. The left ankle brachial index by the dorsalis pedis is 0.98. The left ankle brachial index by the posterior tibial artery is 0.88. The left digital-brachial index is 0.76. Interpretation Summary Moderately severe right lower extremity arterial occlusive disease with monophasic waveforms of the right posterior tibial and dorsalis pedis suggesting a more severe level of disease/multi segmental. Abnormal right digital brachial index Mild left lower extremity arterial occlusive disease with triphasic waveform noted in the left posterior tibial Normal left lower extremity digital brachial index although borderline Findings appear not dissimilar from the previous examination of February 21, 2020 Ordering Physician: Livan Mcfarland Referring Physician: Livan Mcfarland Performed By: Gisselle Santos RVT
== END ==
PROVIDERS: PCP Family Medicine; Referring Provider Family Medicine; Visit Provider Family Medicine
DX: I70.213 Atherosclerosis of native arteries of extremities with intermittent claudication, bilateral legs (principal)
CPT/HCPCS: 93923

== ENCOUNTER → 2020-07-18 10:34 | Outpatient (CLI) | payer MEDICARE, OTHER, SELFPAY ==
[2020-06-30 14:37] VITALS: BMI 30.8
--- NOTE | 2020-07-18 10:37 | CT_ITS ---
STUDY: CT PELVIS WITH CONTRAST REASON FOR EXAM: Male, 85 years old. SCROTAL ABSCESS, BLADDER CANCER-CURRENTLY HAVING TREATMENTS, NON HODKINS LYMPHOMA RADIATION DOSAGE (If Supplied By Facility): CTDIvol = ( 28.21 ) mGy, DLP = ( 1264.86 ) mGycm TECHNIQUE: Transaxial imaging of the pelvis was performed without oral contrast. IV 100mL Isovue-300 was administered intravenously. Individualized dose optimization techniques were used for this CT. COMPARISON: Comparison is made with prior study date 04/02/2019. FINDINGS: There is evidence of diffuse irregular bladder wall thickening more prominent along the anterior and left lateral soria. The prostate measures 3.7 cm x 4.6 cm. Small bilateral hydroceles. There is a 5.1 cm cyst in the upper medial aspect of the left kidney. Mild degree of right hydronephrosis. There is a calcified mesenteric lymph node in the right lower quadrant. Normal visualized small intestine. There are multiple colonic diverticula of the sigmoid colon consistent with chronic diverticulosis. There is no pelvic fluid. There is no pelvic lymphadenopathy or mass lesion. There is diffuse atherosclerotic calcification of the pelvic arteries. There is a right inguinal hernia containing fat. This has decreased in size as compared to prior study. Normal osseous structures. CT/Pelvis WITH IV Contrast IMPRESSION: Diffuse irregular thickening of the bladder wall. Sigmoid diverticulosis. Small right inguinal hernia. Small bilateral hydroceles. Electronically Signed: Roney Conde, at 13:42 EST , Service support ,
[2020-07-18 11:08] VITALS: BP 99/49; PULSE 62; RESP 20; TEMP 36.4; O2SAT 91; BMI 30.8
[2020-07-18 11:20] LABS: CREATININE FINGERSTICK 1.8 mg/dL (0.70-1.30)
[2020-07-18] MEDS: 0.9% Saline Lock 10 ML Syringe IV (13:10)
== END ==
PROVIDERS: PCP Family Medicine; Referring Provider Surgery; Visit Provider Surgery
DX: N49.2 Inflammatory disorders of scrotum (principal)
CPT/HCPCS: 72193; J7040; Q9967; A4216

== ENCOUNTER 2020-07-30 06:42 | Day surgery (SDC) | payer MEDICARE, OTHER, SELFPAY ==
[2020-07-18 11:08] VITALS: BMI 30.8
--- NOTE | 2020-07-24 11:46 | EKG12_ITS ---
Test Reason : PREOP Blood Pressure : / mmHG Vent. Rate : 059 BPM Atrial Rate : 059 BPM P-R Int : 190 ms QRS Dur : 126 ms QT Int : 414 ms P-R-T Axes : 067 -41 071 degrees QTc Int : 409 ms Sinus bradycardia Left axis deviation Non-specific intra-ventricular conduction block Abnormal ECG Confirmed by JULIÁN MARES, BRYANNA ([id number]), editorial assistant MEHDI ARAUJO ([id number]) on 07/25/2020 9:42:40 AM Referred By: Chao Palomino Confirmed By:BRYANNA GALLEGO MD
[2020-07-24 12:23] LABS: Hematocrit 37.5 % (40-54); Mean Corpuscular Hgb 31.7 pg (27.0-32.0); Mean Corpuscular Volume 99.2 fL (80-94); Mean Platelet Vol. 9.9 fl (6.2-12.0); Platelet Count 182 K/mm3 (150-450); RBC Distribution Width CV 14.7 % (11.6-14.6); RBC Distribution Width SD 53.4 fl (35.1-43.9); Red Blood Count 3.78 M/mm3 (4.6-6.2); White Blood Count 7.2 K/mm3 (4.4-11.0)
[2020-07-24 12:58] LABS: Anion Gap 6 (5-15); BUN 23 mg/dL (7-18); BUN/Creat Ratio 14.5 RATIO (10-20); Calcium,Total 9.1 mg/dL (8.5-10.1); Chloride 108 mmol/L (98-107); Creatinine, Serum 1.59 mg/dL (0.70-1.30); EST Glomerular Filtration Rate 44 mL/min (>60); Est Glom Filt Rate - Afr Amer 54 mL/min (>60); Glucose 208 mg/dL (74-106); Potassium 4.3 mmol/L (3.5-5.1); Sodium Level 140 mmol/L (136-145)
--- NOTE | 2020-07-30 07:17 | HP.PCM_ITS ---
Problem List (1) Peripheral vascular occlusive disease Status: Chronic History and Physical Date of Admission: 07/30/20 Intake Visit Reasons: RIGHT LEG PAIN Allergies No Known Allergies Allergy (Verified 06/30/20 14:39) Medications lisinopril 20 mg tablet 20 mg PO BID tab 04/05/18 [History Confirmed 06/30/20] lovastatin 40 mg tablet 40 mg PO QHS 04/05/18 [History Confirmed 06/30/20] metformin 1,000 mg tablet 1,000 mg PO BID 04/05/18 [History Confirmed 06/30/20] [place]-3 Fatty Acids/Fish Oil [Fish Oil 1,000 mg Capsule] 1 cap PO BID 04/10/18 [History Confirmed 06/30/20] Tamsulosin HCl [Flomax] 0.4 mg PO QHS 09/08/18 [History Confirmed 06/30/20] Metoprolol Tartrate [Lopressor (beta richard)] 50 mg PO BID 09/19/18 [History Confirmed 06/30/20] cholecalciferol (vitamin D3) 25 mcg (1,000 unit) tablet 25 mcg PO BID tab 01/24/19 [History Confirmed 06/30/20] Ferrous Sulfate [High Potency Iron] 65 mg PO DAILY 04/05/19 [History Confirmed 06/30/20] amlodipine 10 mg tablet 10 mg PO DAILY #90 tab 08/14/19 [Rx Confirmed 06/30/20] Mirabegron [Myrbetriq] 50 mg PO DAILY 09/18/19 [History Confirmed 06/30/20] apixaban 5 mg tablet 5 mg PO BID tab 06/30/20 [History] [facility] Medical History Atherosclerosis of coronary artery of tangirnaq heart without angina pectoris (Chronic) Secondary pulmonary arterial hypertension (Chronic) Bilateral pulmonary embolism (Chronic 01/2019) Peripheral vascular occlusive disease (Chronic) Essential (primary) hypertension (Chronic) Hyperlipidemia (Chronic) Bladder cancer (Chronic) Large B-cell lymphoma (Chronic) Chemotherapy management, encounter for (Acute) Hematuria, gross (Acute) Right leg pain (Acute) Atherosclerosis of tang[place]q artery of both lower extremities with intermittent claudication (Chronic) Lower urinary tract symptoms (Chronic) Lymphoma (Chronic) Obesity (Chronic) Right inguinal hernia (Chronic) Sleep apnea (Chronic) Thyromegaly (Chronic) Type 2 diabetes mellitus (Chronic) Recurrent right inguinal hernia (Resolved) Surgical History H/O coronary artery bypass surgery (Resolved 2006) Femoral-popliteal bypass graft occlusion, right (Chronic) H/O hernia repair (Resolved) History of appendectomy (Resolved) History of bladder surgery (Resolved 09/2019) History of cataract extraction (Resolved) History of femoral angiogram (Resolved 11/21/12) History of herniorrhaphy (Resolved) History of right-sided carotid endarterectomy (Resolved) History of tonsillectomy and adenoidectomy (Resolved) History of transurethral destruction of bladder lesion (Resolved 12/2018) Hx of lymph node biopsy (Resolved) Family History Sister Breast cancer Diabetes Mother Diabetes Brother Heart disease Hypertension Social History (Updated 06/30/20 @ 15:[address] Chao Palomino MD) Smoking Status: Former smoker how long ago did patient quit smokin years ago alcohol intake: current alcohol intake frequency: a few times a week substance use type: does not use caffeine: Yes Type: coffee Number of servings: 2 HPI HPI HPI: RANULFO NEGRETE, is a 85 M who presents to the office today for surgical consultation regarding right leg pain. The patient is referred by his primary care physician Dr. Livan Mcfarland and a written copy of my surgical consult and recommendations will be returned to him. The patient has multiple medical problems. He claims that in 2004 when he was in [place] he had a right femoral-popliteal bypass. He thinks by about 2011 it failed. At some point he claims that he had a endarterectomy performed that also was not successful. Claims he has had deep venous thrombosis and pulmonary embolus perhaps 2 episodes in 2009. He is now on chronic Eliquis therapy. He had coronary bypass grafting x4 in 2007. He was a 3 pack a day cigarette smoker from age 19 up to age 67. He is currently undergoing treatment for bladder cancer. He has also been treated november 2018 for large B-cell lymphoma. He was referred today because of right lower extremity vascular claudication symptoms. He claims that his right calf is uncomfortable. Unbeknownst to me the patient also wanted to have evaluated soreness at the base of his left scrotum. He was just seen at the urology clinic of Dr. Phillip today to receive treatment for his bladder cancer but he made no comment to them of this issue. He claims that he has had soiling in his undergarments. [facility] [address] [place] [address] Lower Ext Art Exam w/o Exercis 06/18/20 0958 MR#: [id number]:[id number] Name: RANULFO NEGRETERep #:[id number] : 1935 85From: Chao Palomino MD Attending Dr: Dr. Livan Mcfarland, MDStatus: REG CLI Ordering Dr: Livan Mcfarland MDDate: 06/18/20 [facility]: Reason For Study: Atherosclerosis Procedure A bilateral lower extremity continuous wave Doppler with analog waveform analysis,segmental pressures,and ankle brachial indexes without exercise. Left Segmental Pressures Left brachial= 119mmHg. Left thigh = 124mmHg. Left calf = 91mmHg. Left posterior tibial artery = 106mmHg. Left dorsalis pedis artery = 118mmHg. Left digit = 92 mmHg. The left dorsalis pedis waveforms are biphasic. The left posterior tibial artery waveforms are triphasic. Right Segmental Pressures Right brachial= 121mmHg. Right thigh = 101mmHg. Right calf = 49mmHg. Right posterior tibial artery = 69mmHg. Right dorsalis pedis artery = 65mmHg. Right digit = 30 mmHg. The right dorsalis pedis waveforms are monophasic. The right posterior tibial artery waveforms are monophasic. Indices The right ankle brachial index by the dorsalis pedis is 0.54. The right ankle brachial index by the posterior tibial artery is 0.57. The right digital-brachial index is 0.25. The left ankle brachial index by the dorsalis pedis is 0.98. The left ankle brachial index by the posterior tibial artery is 0.88. The left digital-brachial index is 0.76. Interpretation Summary Moderately severe right lower extremity arterial occlusive disease with monophasic waveforms of the right posterior tibial and dorsalis pedis suggesting a more severe level of disease/multi segmental. Abnormal right digital brachial index Mild left lower extremity arterial occlusive disease with triphasic waveform noted in the left posterior tibial Normal left lower extremity digital brachial index although borderline Findings appear not dissimilar from the previous examination of February 21, 2020 Ordering Physician: Livan Mcfarland Referring Physician: Livan Mcfarland Performed By: Gisselle Santos RV[place] 06/18/20 1210 Date Chao Palomino MD HPI HPI HPI: RANULFO NEGRETE, is a 85 M who presents to the office today for Exam Const General: other (Patient appears stated age of 85.) Nutritional Appearance: obese Orientation: alert, awake HENVT Head: normal to inspection Chest Other: Increased anterior posterior diameter Resp Other: Diffuse scattered dry rales, Cardio Rate: regular rate Rhythm: regular rhythm Other: Right radial pulse 2+. Left radial pulse 0. Left carotid 3+ with well-healed carotid endarterectomy incision Right carotid 1 pulse Left femoral 2+. Right femoral 1+. Bilateral popliteal DP and PT pulses absent GI Palpation: soft, no hepatosplenomegaly Other: Overweight, I cannot detect any internal organs, nontender, not pulsatile or expansile Other: Necrotic open wound draining from the base of the left scrotal area. No odor. No distinct palpable mass. Skin Other: Hyperpigmentation bilateral lower extremities bilateral malleolar areas with edema and nonpitting changes. Lichenification noted. Neuro Cognition: normal cognition Extrem Other: Hair loss bilateral lower extremities with atrophic toes shiny skin. Hypertrophic nails. Marked dependent rubor bilaterally with elevation pallor Well-healed right medial thigh and calf remote femoropopliteal bypass incisions Psych Affect: normal affect Assessment & Plan Problems 1. Scrotal abscess N49.2 2. Peripheral vascular occlusive disease I73.9 3. Venous insufficiency (chronic) (peripheral) I87.2 Plan Patient complaining of right calf pain. Clinical examination and noninvasive examination consistent with moderately severe arterial occlusive disease. Unfortunately he has already had previous attempts at endovascular intervention as well as femoral-popliteal bypass. All of his vascular intervention has been performed in [place]. We do not have records of those reports but they were all remote. He likely has chronic long-term occlusion of the right SFA and likely popliteal as well with likely additional involvement of his infrageniculate runoff vessels. I have offered him consideration of an attempt at a retrograde puncture left common femoral artery with abdominal pelvic arteriogram with inspection of the right lower extremity. He does have clinically diminished pulse in the right groin so there is a potential that improving his right iliofemoral inflow could potentially assist with his right lower extremity. I have cautioned him that it is not likely that I will be able to pursue any type of endovascular treatment of the right lower extremity. He has significant bilateral lower extremity venous insufficiency. He is already had a failed right femoral-popliteal bypass. He would require tertiary referral for additional limb salvage technique pending the results of his arteriogram. Regarding the left base of the scrotal abscess I am not clear as to the etiology of this. I am not sure whether it could potentially be related to his bladder cancer. As noted he did not mention it at his urology appointment earlier today. This does not appear to have a colorectal origin. With that in mind I recommend that we obtain a pelvic CT scan. The area is already draining. Appropriate treatment then can then be pursued pending that finding. He has had an opportunity to ask and have questions answered. He is aware of the severity of the ischemia of the right lower extremity. He is aware that I have concerns about ability to improve his vascular flow. Copy: Dr. Livan Palomino M.D., F.A.C.S. Orders Orders: CBC W/Diff, Automated Today N49.2 Comprehensive Metabolic Profil Today N49.2 Coding Level of Care Code 56238 Diagnoses Scrotal abscess N49.2 Peripheral vascular occlusive disease I73.9 Venous insufficiency (chronic) (peripheral) I87.2 I have re-examined the patient. There are no clinical changes since date of exam. Procedure Criteria Procedure Type: Elective COVID Risk Discussion: The surgeon/proceduralist and patient have discussed in detail the risk of exposure to and/or potential harm posed by the COVID-19 virus with having a surgery/procedure at this time versus the risk of delaying the surgery/procedure. It is not possible to know either the risk of delaying the surgery or procedure or chance of getting an infection with perfect accuracy, but a joint decision was made between the patient and the surgeon/proceduralist to proceed at this time with the scheduled surgery/procedure as indicated on the consent form.
--- NOTE | 2020-07-30 09:47 | OP.PCM_ITS ---
Problem List (1) Peripheral vascular occlusive disease Status: Chronic Report of Operation Date of Procedure: 07/30/20 Pre-Operative Diagnosis: Right lower extremity segmental arterial occlusive disease Post-Operative Diagnosis: Same Surgery/Procedure Performed:: Abdominal pelvic right lower extremity arteriogram Description of Surgical Findings:: Timeout and informed consent was obtained. 85-year-old gentleman was taken to the special procedure lab placed on the table. He received 50 mcg of fentanyl and 1 mg of Versed is intravenous sedation. Bilateral groins were sterilely prepped and draped. Under ultrasound guidance the left common femoral artery identified. Under ultrasound guidance 2% lidocaine was instilled as a local anesthetic. A total of 8 cc was used. Micropuncture needle was inserted under ultrasound guidance. Micropuncture wire inserted. Fluoroscopy demonstrated nice advancement. A micropuncture sheath was inserted. 035 J-wire was inserted. A 5 [place] short sheath dilator was inserted. Then utilizing an 035 angled Glidewire and a 5 [place] universal flush catheter I gained access to the infrarenal abdominal aorta. Utilizing Visipaque contrast of the rate of 15's a second for 10 cc of diluted contrast I had an AP aortogram. I then utilized the angled Glidewire to gain access to the right distal external iliac artery. Static views of the right lower extremity were obtained. A total of 30 cc of contrast was utilized during today's procedure. There did not appear to be any findings that were amenable to endovascular intervention. The flush catheter was removed over a wire. The sheath was removed pressure was held for hemostasis. The patient was taken to the recovery area. 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 Mild disease of the origin of the right common iliac. 40% stenosis of the origin of the right external iliac. Occlusion of the right internal iliac. The left internal iliac is patent. Bilateral external iliacs patent to the groin. The right lower extremity demonstrates a patent profundofemoral artery with a heavily calcified piece of plaque right at its origin. I did not believe that this was flow restricting. The right superficial femoral artery was seen in the proximal thigh and then obliterates. There is extensive collateralization in the distal thigh around the knee and in the proximal calf. I do not see evidence of an anterior tibial artery. I believe to see evidence of a previous below-knee femoral-popliteal bypass with clips placed with occlusion of the right popliteal artery. There appears to be visualization of the tibioperoneal bifurcation. As best I can tell it appears that the right peroneal is the dominant vessel with the posterior tibial patent though less generous. I am not seeing evidence of the right anterior tibial. Impression Occluded right superficial femoral artery and popliteal artery and anterior tibial artery. Occluded right femoral below-knee bypass graft. Visualized two- vessel runoff to the right lower extremity felt likely to be the peroneal and posterior tibial artery. Confirmation with duplex ultrasound could be considered. Occluded right internal iliac artery. 40% stenosis at the origin of the right external iliac. No endovascular intervention pursued today. Chao Palomino M.D., F.A.C.S.
== END 2020-07-30 15:00 | disposition home or self-care (01) ==
LOC: CLSP 06:42
PROVIDERS: PCP Family Medicine; Referring Provider Surgery; Visit Provider Surgery
DX: I73.9 Peripheral vascular disease, unspecified (principal); I74.5 Embolism and thrombosis of iliac artery; N49.2 Inflammatory disorders of scrotum; I27.82 Chronic pulmonary embolism; I87.2 Venous insufficiency (chronic) (peripheral); I27.21 Secondary pulmonary arterial hypertension; R09.89 Other specified symptoms and signs involving the circulatory and respiratory systems; E66.9 Obesity, unspecified; I77.1 Stricture of artery; I25.10 Atherosclerotic heart disease of native coronary artery without angina pectoris; C67.9 Malignant neoplasm of bladder, unspecified; C85.10 Unspecified B-cell lymphoma, unspecified site; Z79.01 Long term (current) use of anticoagulants; Z79.84 Long term (current) use of oral hypoglycemic drugs; Z87.891 Personal history of nicotine dependence; Z95.1 Presence of aortocoronary bypass graft; E78.5 Hyperlipidemia, unspecified; E11.9 Type 2 diabetes mellitus without complications; I10 Essential (primary) hypertension; I99.8 Other disorder of circulatory system
CPT/HCPCS: 36200; 36245; 36415; 75625; 75710; 76937; 80048; 85027; 93005; 99152; 99153; J7030; J7040; Q9967; C1769

== ENCOUNTER → 2020-11-17 06:55 | Outpatient (CLI) | payer MEDICARE, OTHER, SELFPAY ==
[2020-11-06 07:20] VITALS: BMI 30.8
[2020-11-13 13:38] VITALS: BMI 31.0
--- NOTE | 2020-11-17 09:28 | STRESSREP ---
Stress Test Report Pharmacologic myocardial perfusion stress test. 85-year-old man with a history of coronary artery disease. Stress protocol: Rest EKG demonstrates normal sinus rhythm with a rate of 79 bpm normal intervals are noted resting blood pressure is 140/64 mmHg. 0.4 mg of adenosine was infused per usual protocol followed by rapid intravenous saline flush injection continuous EKG monitoring was performed. The maximum heart rate was 92 bpm which was 67% of maximum predicted heart rate the maximum workload was one metabolic equivalent. At rest there were no ST or T wave changes noted to suggest ischemia and at peak infusion nonspecific ST changes were noted. Myocardial perfusion protocol. 14.6 mCi of technetium 99m sestamibi was injected at rest. 0.4 mg of regadenoson was infused per usual protocol. At peak infusion 44.7 mCi of technetium 99m sestamibi was injected stress images were obtained stress and rest images were reconstructed and compared in the short axis vertical long and horizontal long axis. Gated images were also obtained for Perfusion SPECT analysis: Review of the stress images demonstrate normal uptake of tracer noted in all areas of the myocardium. The resting images similarly demonstrate normal uptake of tracer noted in all areas of the myocardium. No areas of reversibility are noted to suggest ischemia and no previous infarct is noted. Gated SPECT analysis: The gated ejection fraction is 71%. Conclusion: Normal pharmacologic myocardial perfusion stress test. Preserved ejection fraction.
== END ==
PROVIDERS: PCP Family Medicine; Referring Provider Internal Medicine Cardiovascular Disease; Visit Provider Internal Medicine Cardiovascular Disease
DX: R07.9 Chest pain, unspecified (principal); Z95.1 Presence of aortocoronary bypass graft
CPT/HCPCS: 78452; 93017; A9500; A4216; J2785

== ENCOUNTER → 2021-02-19 11:37 | Outpatient (CLI) | payer MEDICARE, OTHER, SELFPAY ==
[2021-02-19 15:46] LABS: Microalbumin:Creatinine Ratio 180.2 mg/g CRE (<30 mg/g CRE)
[2021-02-19 16:01] LABS: AST(SGOT) 12 U/L (15-37); Alanine Aminotransfer ALT/SGPT 18 U/L (16-61); Albumin, Serum 3.7 g/dL (3.2-5.0); Alkaline Phosphatase 43 U/L (45-117); Anion Gap 4 (5-15); BUN 27 mg/dL (7-18); BUN/Creat Ratio 18.9 RATIO (10-20); Bilirubin, Direct 0.11 mg/dL (0.00-0.30); Calcium,Total 9.5 mg/dL (8.5-10.1); Chloride 108 mmol/L (98-107); Cholesterol 126 mg/dL (200); Creatinine, Serum 1.43 mg/dL (0.70-1.30); EST Glomerular Filtration Rate 50 mL/min (>60); Est Glom Filt Rate - Afr Amer 61 mL/min (>60); Globulin 3.2 g/dL (2.2-4.2); Glucose 162 mg/dL (74-106); High Density Lipoprotein 35 mg/dL; Potassium 4.9 mmol/L (3.5-5.1); Protein, Total 6.9 g/dL (6.4-8.2); Sodium Level 139 mmol/L (136-145); Triglycerides 149 mg/dL; Very Low Density Lipoprotein 30 mg/dL (5-40)
== END ==
PROVIDERS: PCP Family Medicine; Referring Provider Family Medicine; Visit Provider Family Medicine
DX: E11.9 Type 2 diabetes mellitus without complications (principal)
CPT/HCPCS: 36415; 80048; 80061; 80076; 82043; 82570

== ENCOUNTER → 2021-03-19 16:04 | Outpatient (CLI) | payer MEDICARE, OTHER, SELFPAY ==
--- NOTE | 2021-03-19 10:29 | CYSPIN_PTH ---
PATIENT: RANULFO NEGRETE LOC: [facility] U#:[id number] AGE/SX: 89/M ROOM: RE03/19/[address]: Dr. Joe Phillip MD : 1935 BED: DIS: SPEC #: [id number] RECD: 03/20/21 08:31 STATUS: EMY RODRIGO #: [id number] LEN: 03/19/21 10:[address]: Joe Phillip DEPT: CYTOLOGY RECD BY: Arianna Cameron ENTERED: 03/20/21 08:31 SP TYPE: CYSPIN FL OTHR DR: Dr. Livan Mcfarland MD Tissues: Urine Procedures: Pap Stain (control) Special Stain Group II Cytospin Fluid HEADER OPERATION: Not noted PRE-OP DIAGNOSIS: Bladder CA TISSUE SUBMITTED: Urine for cytology DIAGNOSIS CYTOLOGY Urine for cytology (cytospin): Positive for malignant cells consistent with urothelial carcinoma. AM:zion 03/20/2021 COMMENT Reference is made to the patient's previous urinary bladder biopsy from 03/25/20 ([id number]) in which high-grade urothelial carcinoma was identified. Case has been reviewed in consultation with Dr. Valdez who concurs with the above diagnosis. IDC:SJ CYTOLOGY STUDY Slides are reviewed. CYTOLOGY GROSS Received is 40 ml of yellow cloudy fluid labeled with the patient's name and and designated per the requisition as urine. Submitted for cytology preparation. / rg 03/20/2021 TC:0 CPT: 01410
[2021-03-19 15:50] LABS: Cytology, Body Fluid / CSF SEE PATHOLOGY REPORT
== END ==
PROVIDERS: PCP Family Medicine; Visit Provider Urology
DX: D09.0 Carcinoma in situ of bladder (principal)
CPT/HCPCS: 88108; 88313

== ENCOUNTER 2021-04-08 06:39 | Day surgery (SDC) | payer MEDICARE, OTHER, SELFPAY ==
[2021-04-07 10:54] LABS: Hematocrit 38.6 % (40-54); Hemoglobin 12.1 g/dL (13.0-16.5); Mean Corp Hgb Conc 31.3 g/dL (32-36); Mean Corpuscular Hgb 32.5 pg (27.0-32.0); Mean Corpuscular Volume 103.8 fL (80-94); Mean Platelet Vol. 10.1 fl (6.2-12.0); Platelet Count 190 K/mm3 (150-450); RBC Distribution Width CV 14.2 % (11.6-14.6); RBC Distribution Width SD 54.4 fl (35.1-43.9); Red Blood Count 3.72 M/mm3 (4.6-6.2); White Blood Count 6.8 K/mm3 (4.4-11.0)
[2021-04-07 11:20] LABS: Hemoglobin A1c 7.7 % (3.8-5.6)
[2021-04-08] VITALS (14 sets, daily range): BP systolic 124–149; BP diastolic 57–73; PULSE 59–88; RESP 16–18; TEMP 36.1–37.2; O2SAT 88–100; BMI 30.9; BMI 30.6
--- NOTE | 2021-04-08 | IMM_PTH ---
PATIENT: RANULFO NEGRETE LOC: [facility] – [place] U#:[id number] AGE/SX: 85/M ROOM: RE04/08/[address]: Dr. Joe Phillip MD : 1935 BED: DIS: 04/09/2021 SPEC #: [id number] RECD: 04/10/21 09:03 STATUS: EMY RETommy #: [id number] LEN: 04/08/21 00:[address]: Joe Phillip DEPT: IMMUNOHISTOCHEMISTRY RECD BY: Angelia Stevens ENTERED: 04/10/21 09:05 SP TYPE: IMMUNO OTHR DR: Dr. Livan Mcfarland MD Tissues: PROSTATE BIOPSY Procedures: CK20 (add) CK8 (add) CD44 (add) PSAP (add) CK7 (initial) PHYSICIAN & INSTITUTION [place] [id number] SPECIMEN INFORMATION: Tissue Source: Prostate chips Clinical Info: BPH, malignant neoplasm of bladder, carcinoma in situ bladder Specimen Number: [id number] CPT code: 62414, 63245 x4 METHODOLOGY: Deparaffinized sections of prefer/formalin-fixed tissue or PAP/DQ stained slides are incubated with monoclonal/polyclonal antibodies/oligonucleotide probes. Localization is made via biotin free immunoperoxidase method. Appropriate controls are performed and reacted as expected. Results on target cell population are indicated in the following table: RESULTS: ANTIBODY / CLONE RESULT CK7 (OV-TL12/30) positive CK8 (43etmzD34) positive CK20 (KS20.8) positive anti-CD44 (SP37) negative PSAP (PASE/4LJ) negative These tests were developed and their performance characteristics determined by [facility]. They may not have been cleared or approved by the U.S. Food and Drug Administration. The FDA has determined that such clearance or approval is not necessary. The above immunohistochemical/dualISH markers are ordered and reviewed by the Pathologist. INTERPRETATION: Prostate chips, TUR: Consistent with urothelial carcinoma invading into the prostatic stromal tissue. JOANNE:zion 04/10/2021 Case has been reviewed in consultation with Dr. Wellington who concurs with the above diagnosis. IDC:AM
[2021-04-08 07:30] LABS: Bedside Glucose 168 mg/dL (70-110)
[2021-04-08] MEDS: Lactated Ringers 1,000 ML 100 ML IV (08:00)
--- NOTE | 2021-04-08 08:06 | SUR.PREOP ---
Pt chest port accessed. unable to flush, no bood return. Sterile drsg applied.
--- NOTE | 2021-04-08 08:50 | PROS_PTH ---
PATIENT: RANULFO NEGRETE LOC: [facility] [place] U#:[id number] AGE/SX: 85/M ROOM: RE04/08/[address]: Dr. Joe Phillip MD : 1935 BED: DIS: 04/09/2021 SPEC #: [id number] RECD: 04/08/21 10:52 STATUS: EMY WALLACE #: [id number] LEN: 04/08/21 08:[address]: Joe Phillip DEPT: SURGICAL PATHOLOGY RECD BY: Arianna Cameron ENTERED: 04/08/21 11:19 SP TYPE: TURP OTHR DR: Dr. Livan Mcfarland MD Tissues: Prostate, NOS Procedures: Surgery Specimen Level IV HEADER OPERATION: Cysto, TUR prostate, Olympus PRE-OP DIAGNOSIS: BPH, malignant neoplasm bladder, carcinoma situ bladder TISSUE SUBMITTED: Prostate chips MICROSCOPIC DIAGNOSIS Prostate chips, TUR: Invasive urothelial carcinoma. See cancer summary in the comment section. SJ:zion 04/10/2021 COMMENT PROSTATE CANCER (TUR) SUMMARY: Procedure - transurethral resection of prostate (TURP) Tumor site ? not specified Histologic type ? urothelial carcinoma, invasive Associated epithelial lesion ? none identified Histologic grade ? high grade (3/3) Tumor configuration ? invasive tumor Muscularis propria presence - the tumor entirely consists of prostatic tissue. Muscularis propria (detrusor muscle) is not identified. Lymphvascular invasion - not identified Tumor extension - urothelial carcinoma invades into the prostatic stromal tissue in prostatic chips. Additional pathologic findings: Benign glandular hyperplasia, predominantly stromal type. The above summary is in compliance with [employer] (CAP) Cancer Protocols Checklist and [place] Joint Committee on Cancer (AJCC), Staging Manual, 8th Ed. Immunohistochemistry ([id number]) supports the above diagnosis. Please make reference to previous specimens ([id number]) bladder, posterior wall, biopsy with diagnosis of invasive urothelial carcinoma and ([id number]) urinary bladder, biopsy with diagnosis of detached minute fragment of urothelial carcinoma and ([id number]) bladder tumor, TUR with diagnosis of urothelial carcinoma. Case has been reviewed in consultation with Dr. Wellington who concurs with the above diagnosis. IDC:AM MICROSCOPIC DESCRIPTION Slides are reviewed. GROSS DESCRIPTION Received is one container labeled with the patient's name and designated prostate chips. The specimen consists of multiple irregular fragments of pink-bean, rubbery, soft tissue that in aggregate weigh 0.7 gm and measure in aggregate 2.5 x 2 x 0.3 cm. The entire specimen is submitted in one cassette. / JOANNE:zion 04/08/21 TC:0 CPT: 85117
[2021-04-08] MEDS: Cefazolin 2 GM in 0.9% Normal Saline 100 ML IV (09:01)
--- NOTE | 2021-04-08 09:03 | PCM.DC ---
Discharge Instructions Diet Discharge Diet: No restrictions Activity Discharge Activity: Return to Normal Activity and May Not Drive (while taking narcotic pain medications.) Dressing / Incision Call your doctor if you observe: Fever of 101 or Higher Follow Up Care Please Follow Up With: Joe Phillip MD When: Call [phone] for an appointment Test Results: Test results from this visit will be discussed in further detail at your follow-up appointment, if applicable. Discharge Plan Admission Primary Reason for Your Visit: bladder cancer on prostate Attending Provider: Joe Phillip Primary Care Provider: Livan Mcfarland Discharge Orders/Prescriptions Prescriptions: New ciprofloxacin HCl [Cipro] 500 mg tablet 500 mg PO BID Qty: 14 RF: 0 Continued metformin 1,000 mg tablet 1,000 mg PO BID RF: 0 lisinopril 20 mg tablet 20 mg PO BID RF: 0 lovastatin 40 mg tablet 40 mg PO QHS RF: 0 cholecalciferol (vitamin D3) 1,000 unit tablet 25 mcg PO BID RF: 0 amlodipine 10 mg tablet 10 mg PO DAILY RF: 0 omega-3 fatty acids-fish oil 1 EACH capsule 1 cap PO BID RF: 0 tamsulosin 0.4 MG capsule 0.4 mg PO QHS RF: 0 metoprolol tartrate 50 MG tablet 50 mg PO BID RF: 0 ferrous sulfate 27 MG tablet 65 mg PO DAILY RF: 0 mirabegron 50 MG tablet extended release 24 hr 50 mg PO DAILY RF: 0 Held Eliquis 2.5 mg tablet 2.5 mg PO BID RF: 0 Hold Instructions: Resume on 04/17/21. apixaban 5 mg tablet 5 mg PO BID RF: 0 Hold Instructions: Resume on 04/17/21. Referrals / Follow Up: Joe Phillip MD [STAFF PHYSICIAN] - Livan Mcfarland MD [Primary Care Provider] - Disposition Disposition (needs filled in before D/C Order can be placed): Home, Self Care
--- NOTE | 2021-04-08 09:50 | OP.PCM_ITS ---
Report of Operation Date of Procedure: 04/08/21 Pre-Operative Diagnosis: bladder cancer, insitu in prostatic urethra. Post-Operative Diagnosis: same Surgery/Procedure Performed:: turp Description of Surgical Findings:: Patient was taken back to the operating room, timeout procedure was performed, he was identified and marked and placed on the operating room table. He underwent general anesthesia. He was placed in dorsolithotomy position. Penis and testicles were prepped and draped in usual sterile fashion. Went into the bladder using the visual obturator with a resectoscope. Once inside the bladder identified the right and left ureteral orifice. I then identified the prostate and the anatomy of the prostate. I marked out the area of the sphincter and the verumontanum was identified. I then proceeded with the prostate resection first resected the median lobe. And then resected the right lobe of the prostate. Then to resect the left lobe of the prostate. I then resected the apical tissue of the prostate. Made sure that there was no injury to the sphincter or the verumontanum was still intact. At the end of the resection all the chips were Ellik out of the bladder. I then identified the left and right ureteral orifice and these were confirmed to be in good position and effluxing and not injured. The resectoscope was removed, a 20 [place] catheter was placed into the bladder. And the urine was fairly light pink color and draining normally. He was taken back to the PACU in good condition. Surgeon: gabriela Type of Anesthesia: General Drains: 20 fr coughlin Admit VTE Documentation VTE Present on Admission: No VTE Mechan Device Prophylaxis: SCD's
[2021-04-08 10:25] LABS: Bedside Glucose 159 mg/dL (70-110)
[2021-04-08] MEDS: 0.9% Normal Saline 1,000 ML 75 ML IV ×2 (10:44→21:50)
--- NOTE | 2021-04-08 12:59 | PCS.PANDOC ---
PANDEMIC DOCUMENTATION INITIATED: Date: 04/08/2021 Time: 1200
[2021-04-08] MEDS: Ciprofloxacin 400 MG/200 ML BAG 200 MG IV (16:35)
[2021-04-08] MEDS: metFORMIN HCl 1,000 MG Tablet 1000 MG PO (16:36)
[2021-04-08] MEDS: Cholecalciferol (VIT D3) 25 MCG TABLET (1,000 UNITS) PO (16:36)
[2021-04-08] MEDS: Tamsulosin HCl 0.4 MG Capsule PO (21:50)
[2021-04-08] MEDS: Lisinopril 20 MG Tablet PO (21:50)
[2021-04-08] MEDS: Metoprolol Tartrate 50 MG Tablet PO (21:50)
[2021-04-08] MEDS: Atorvastatin Calcium 10 MG Tablet PO (21:50)
[2021-04-09 02:44] VITALS: BP 129/69; PULSE 71; RESP 16; TEMP 36.3; O2SAT 97
[2021-04-09] MEDS: Ciprofloxacin 400 MG/200 ML BAG 200 MG IV (05:31)
[2021-04-09] MEDS: Ferrous Sulfate 325 MG Tablet PO (07:49)
[2021-04-09] MEDS: metFORMIN HCl 1,000 MG Tablet 1000 MG PO (07:50)
[2021-04-09] MEDS: Cholecalciferol (VIT D3) 25 MCG TABLET (1,000 UNITS) PO (07:50)
[2021-04-09 08:25] VITALS: BP 120/57; PULSE 67; RESP 16; TEMP 36.4; O2SAT 98
[2021-04-09] MEDS: 0.9% Saline Lock 10 ML Syringe IV (09:40)
[2021-04-09 09:54] VITALS: BP 124/66; PULSE 73
[2021-04-09] MEDS: Metoprolol Tartrate 50 MG Tablet PO (09:54)
[2021-04-09] MEDS: Lisinopril 20 MG Tablet PO (09:55)
[2021-04-09] MEDS: Mirabegron 50 MG TAB.ER.24H PO (09:55)
[2021-04-09] MEDS: amLODIPine 10 MG Tablet PO (09:55)
[2021-04-09 10:00] VITALS: BP 124/66; PULSE 73; RESP 16; O2SAT 93
== END 2021-04-09 11:05 | disposition home or self-care (01) ==
LOC: SDC 06:39 → AC 06:40 → MS2 11:08
PROVIDERS: Anesthesiology; PCP Family Medicine; Referring Provider Urology; Visit Provider Urology
PROC: (CPT 52601; principal; 2021-04-08 08:40)
DX: N40.1 Benign prostatic hyperplasia with lower urinary tract symptoms (principal); D09.0 Carcinoma in situ of bladder; C67.8 Malignant neoplasm of overlapping sites of bladder; I25.10 Atherosclerotic heart disease of native coronary artery without angina pectoris; I10 Essential (primary) hypertension; E78.5 Hyperlipidemia, unspecified; I73.9 Peripheral vascular disease, unspecified; I87.2 Venous insufficiency (chronic) (peripheral); I27.21 Secondary pulmonary arterial hypertension; Z79.899 Other long term (current) drug therapy
CPT/HCPCS: 52601; 36415; 82962; 83036; 85027; 87635; 88305; 88341; 88342; C9803; J7030; J7120; U0005; A4216; J0744; J2405; U0003

== ENCOUNTER → 2021-04-20 13:20 | Outpatient (CLI) | payer MEDICARE, OTHER, SELFPAY ==
--- NOTE | 2021-04-20 13:47 | CT_ITS ---
STUDY: CT CHEST, ABDOMEN T PELVIS WITH CONTRAST REASON FOR EXAM: Male, 85 years old. STAGING PROSTATE CANCER RADIATION DOSAGE (If Supplied By Facility): CTDIvol = ( 20.38 ) mGy, DLP = ( 2146.57 ) mGycm TECHNIQUE: Transaxial imaging was performed following intravenous administration of IV 100mL Isovue-300. Multiplanar coronal and sagittal images were reformatted. Individualized dose optimization techniques were used for this CT. COMPARISON: 04/02/2019 FINDINGS: CHEST Areas of scarring and fibrosis in both lungs are similar to 04/02/2019. There is no demonstrated pleural abnormality. Normal heart and pericardium. Sternal cerclage wires and vascular clips are present from a prior sternotomy and coronary artery bypass graft procedure (CABG). Normal mediastinum. Normal hilar regions. Normal pulmonary arteries. Normal aorta arch and descending thoracic aorta. 4.5 x 3.3 cm left thyroid mass (4.3 x 3.6 cm when measured in a similar fashion on 04/02/2019). Bulky left axillary lymph node no longer demonstrated. Upper back sebaceous cyst redemonstrated. No finding of aggressive bone lesion. ABDOMEN Normal liver. Normal gallbladder and extrahepatic biliary system. There are multiple benign calcified granulomata of the spleen. Normal pancreas. Normal bilateral adrenal glands. Normal right kidney. Normal left kidney. Large left renal cyst. Normal visualized stomach. Normal small intestine. Normal colon. There are surgical clips in the region of the appendix consistent with a prior appendectomy. Normal abdominal aorta. Normal inferior vena cava. Normal retroperitoneum. Normal abdominal wall. No finding of aggressive bone lesion. PELVIS Contracted urinary bladder with wall thickening and surrounding fat stranding. Normal visualized small intestine. Normal visualized colon. There is no pelvic fluid. There is no pelvic lymphadenopathy or mass lesion. Widening of the prostatic urethra suggests history of transurethral resection of prostate. Normal visualized pelvic arteries. Normal abdominal wall. No finding of aggressive bone lesion. CT/CT Chest, Abd, Pel w/Contrast IMPRESSION: No finding of prostate cancer recurrence or metastasis. Similar size of left thyroid lobe mass. Urinary bladder wall thickening and surrounding fat stranding may represent urinary tract infection versus sequela of chronic urinary bladder outlet obstruction. Electronically Signed: Livan Carmona MD at 5:16 EDT Tel , Service support ,
[2021-04-20] MEDS: 0.9% Saline Lock 10 ML Syringe IV (14:25)
[2021-04-20 15:08] LABS: Absolute Lymphocyte Count 2.26 X10^3/uL (0.83-4.51); Absolute Neutrophil Count 4.9 X10^3/uL (2.0-7.7); Basophil# 0.07 X10^3/uL; Basophil% 0.9 % (0-1); Eosinophil# 0.21 X10^3/uL; Eosinophils% 2.6 % (0-5); Hemoglobin 11.9 g/dL (13.0-16.5); Lymphocyte # 2.26 X10^3/ul (0.83-4.51); Lymphocyte % 28.1 % (19-41); Mean Corp Hgb Conc 31.3 g/dL (32-36); Mean Corpuscular Hgb 32.6 pg (27.0-32.0); Mean Corpuscular Volume 104.1 fL (80-94); Mean Platelet Vol. 9.9 fl (6.2-12.0); Monocyte# 0.56 X10^3/uL; NRBC Flagged by Analyzer 0 % (0-5); Neutrophil # 4.87 X10^3/uL (2.7-7.7); Neutrophil % 60.7 % (47-70); Platelet Count 242 K/mm3 (150-450); RBC Distribution Width CV 13.9 % (11.6-14.6); RBC Distribution Width SD 52.8 fl (35.1-43.9); Red Blood Count 3.65 M/mm3 (4.6-6.2)
[2021-04-20 16:02] LABS: ALB/GLOB Ratio 0.9 RATIO (0.9-2.4); AST(SGOT) 11 U/L (15-37); Alanine Aminotransfer ALT/SGPT 15 U/L (16-61); Albumin, Serum 3.1 g/dL (3.2-5.0); Alkaline Phosphatase 66 U/L (45-117); Anion Gap 6 (5-15); BUN 22 mg/dL (7-18); BUN/Creat Ratio 14.5 RATIO (10-20); Calcium,Total 9.3 mg/dL (8.5-10.1); Chloride 108 mmol/L (98-107); Creatinine, Serum 1.52 mg/dL (0.70-1.30); EST Glomerular Filtration Rate 47 mL/min (>60); Est Glom Filt Rate - Afr Amer 57 mL/min (>60); Globulin 3.3 g/dL (2.2-4.2); Glucose 163 mg/dL (74-106); LDH 164 U/L (87-241); Potassium 4.4 mmol/L (3.5-5.1); Protein, Total 6.4 g/dL (6.4-8.2); Sodium Level 142 mmol/L (136-145)
== END ==
PROVIDERS: PCP Family Medicine; Referring Provider Internal Medicine Medical Oncology; Visit Provider Internal Medicine Medical Oncology
DX: C61 Malignant neoplasm of prostate (principal); C67.9 Malignant neoplasm of bladder, unspecified; C85.10 Unspecified B-cell lymphoma, unspecified site
CPT/HCPCS: 36415; 71260; 74177; 80053; 83615; 84153; 85025; Q9967; A4216

== ENCOUNTER → 2021-05-07 16:35 | Outpatient (CLI) | payer MEDICARE, OTHER, SELFPAY ==
--- NOTE | 2021-05-07 | IMM_PTH ---
PATIENT: RANULFO NEGRETE LOC: [facility] U#:[id number] AGE/SX: 89/M ROOM: RE05/07/[address]: Dr. Joe Phillip MD : 1935 BED: DIS: SPEC #: [id number] RECD: 05/11/21 14:33 STATUS: EMY RETommy #: [id number] LEN: 05/07/21 00:[address]: Joe Phillip DEPT: IMMUNOHISTOCHEMISTRY RECD BY: Angelia Stevens ENTERED: 05/11/21 14:35 SP TYPE: IMMUNO OTHR DR: Dr. Livan Mcfarland MD Tissues: A - PROSTATE RIGHT B - PROSTATE RIGHT C - PROSTATE RIGHT Procedures: CK20 (add) CK7 (add) CK8 (add) 34BE12 (add) P40 (add) CD44 (add) PSAP (add) CK7 (initial) PHYSICIAN & INSTITUTION [place] [phone] SPECIMEN INFORMATION: Tissue Source: A - Right prostate, apex, B - Right prostate, mid, C - Right prostate, base Clinical Info: R97.20 Specimen Number: [id number] A-C CPT code: 51954, 57232 x20 METHODOLOGY: Deparaffinized sections of prefer/formalin-fixed tissue or PAP/DQ stained slides are incubated with monoclonal/polyclonal antibodies/oligonucleotide probes. Localization is made via biotin free immunoperoxidase method. Appropriate controls are performed and reacted as expected. Results on target cell population are indicated in the following table: RESULTS: ANTIBODY / CLONE RESULT Block A CK7 (OV-TL12/30) positive CK8 (62xoaoD80) positive CK20 (KS20.8) positive anti-CD44 (SP37) negative PSAP (PASE/4LJ) negative P40 (BC28) positive, focal 34BE12 (34BE12) positive Block B CK7 (OV-TL12/30) positive CK8 (84xptsE17) positive CK20 (KS20.8) positive anti-CD44 (SP37) negative PSAP (PASE/4LJ) negative P40 (BC28) positive 34BE12 (34BE12) positive Block C Urothelial carcinoma Prostatic adenocarcinoma CK7 (OV-TL12/30) positive negative CK8 (65hijjE33) positive positive CK20 (KS20.8) positive negative anti-CD44 (SP37) negative negative PSAP (PASE/4LJ) negative positive P40 (BC28) positive, focal negative 34BE12 (34BE12) positive negative These tests were developed and their performance characteristics determined by [facility]. They may not have been cleared or approved by the U.S. Food and Drug Administration. The FDA has determined that such clearance or approval is not necessary. The above immunohistochemical/dualISH markers are ordered and reviewed by the Pathologist. INTERPRETATION: A. Right prostate, apex, core biopsy: Invasive urothelial carcinoma involving prostatic tissue. B. Right prostate, mid, core biopsy: Invasive urothelial carcinoma involving prostatic tissue. C. Right prostate, base, core biopsy: Invasive urothelial carcinoma involving prostatic tissue. Prostatic adenocarcinoma. SJ:zion 05/12/2021
--- NOTE | 2021-05-07 | PROSBIL_PTH ---
PATIENT: RANULFO NEGRETE LOC: [facility] U#:[id number] AGE/SX: 89/M ROOM: RE05/07/[address]: Dr. Joe Phillip MD : 1935 BED: DIS: SPEC #: [id number] RECD: 05/07/21 17:00 STATUS: EMY RODRIGO #: [id number] LEN: 05/07/21 00:[address]: Joe Phillip DEPT: SURGICAL PATHOLOGY RECD BY: Gerald Hooker ENTERED: 05/08/21 09:12 SP TYPE: PROST BX DINH DR: Dr. Livan Mcfarland MD Tissues: A - PROSTATE RIGHT B - PROSTATE RIGHT C - PROSTATE RIGHT D - PROSTATE LEFT E - PROSTATE LEFT F - PROSTATE LEFT Procedures: PROSTATE BX HEADER OPERATION: Prostate biopsy PRE-OP DIAGNOSIS: R97.20 TISSUE SUBMITTED: A - Right apex, B - Right mid, C - Right base, D - Left apex, E - Left mid, F - Left base MICROSCOPIC DIAGNOSIS A. Right prostate, apex, core biopsy: Invasive urothelial carcinoma involving prostatic tissue. See comment. B. Right prostate, mid, core biopsy: Invasive urothelial carcinoma involving prostatic tissue. See comment. C. Right prostate, base, core biopsy: Prostatic adenocarcinoma. Liasndra grade: 3+4=7 Number of cores involved: 1/1 Proportion of tissue involved: 50% Perineural invasion: Present, focal. Greatest tumor length: 1 cm, discontinus Invasive urothelial carcinoma involving prostatic tissue. See comment. D. Left prostate, apex, core biopsy: Prostatic stromal tissue, negative for malignancy. E. Left prostate, mid, core biopsy: Prostatic tissue, negative for malignancy. Focal mild chronic inflammation. F. Left prostate, base, core biopsy: A minute fragment of prostatic stromal tissue, negative for malignancy. SJ:zion 05/11/2021 COMMENT A-C. Immunohistochemistry ([id number]) supports the above diagnosis. Please make reference to previous specimens ([id number]) prostate chips, TUR with diagnosis of ?invasive urothelial carcinoma? and ([id number] and [id number]) urinary bladder tumor, TUR with diagnosis of ?urothelial carcinoma.? Case has been reviewed in consultation with Dr. Wellington who concurs with the above diagnosis. IDC:AM MICROSCOPIC DESCRIPTION Slides are reviewed. GROSS DESCRIPTION A - Received is one container designated prostate, right apex. The specimen consists of one elongated fragments of light bean-white soft tissue measuring 1 cm in length and 0.1 cm in diameter. The specimen is totally submitted in one cassette. B - Received is one container designated prostate, right mid. The specimen consists of one elongated fragments of light bean-white soft tissue measuring 1 cm in length and 0.1 cm in diameter. The specimen is totally submitted in one cassette. C - Received is one container designated prostate, right base. The specimen consists of one elongated fragment of light bean-white soft tissue measuring 1.5 cm in length and 0.1 cm in diameter. The specimen is totally submitted in one cassette. D - Received is one container designated prostate, left apex. The specimen consists of one elongated fragments of light bean-white soft tissue measuring 1 cm in length and 0.1 cm in diameter. The specimen is totally submitted in one cassette. E - Received is one container designated prostate, left mid. The specimen consists of one elongated fragments of light bean-white soft tissue measuring 1 cm in length and 0.1 cm in diameter. The specimen is totally submitted in one cassette. F - Received is one container designated prostate, left base. The specimen consists of one elongated fragments of light bean-white soft tissue measuring 0.2 cm in length and 0.1 cm in diameter. The specimen is totally submitted in one cassette. / JOANNE:zion 05/08/21 TC:0 CPT: G0146
== END ==
PROVIDERS: PCP Family Medicine; Visit Provider Urology
DX: R97.20 Elevated prostate specific antigen [PSA] (principal)
CPT/HCPCS: 88305; 88341; 88342; G0416

== ENCOUNTER → 2021-06-09 10:00 | Outpatient (RCR) | payer MEDICARE, OTHER, SELFPAY ==
[2021-06-01] MEDS: 0.9% Saline Lock 10 ML Syringe IV ×2 (07:45→10:52)
[2021-06-01] MEDS: 0.9 % NaCl (Sterile) Posiflush 10 mL IV (07:45)
[2021-06-01] MEDS: 0.9% Normal Saline 250 ML IV.SOLN. IV (09:11)
[2021-06-01 09:20] VITALS: BMI 31.2
[2021-06-01 10:53] VITALS: BP 112/49; PULSE 57
[2021-06-08] MEDS: 0.9% Saline Lock 10 ML Syringe IV ×2 (08:18→11:42)
[2021-06-08] MEDS: 0.9 % NaCl (Sterile) Posiflush 10 mL IV (08:18)
[2021-06-08 08:32] LABS: Absolute Neutrophil Count 2.7 X10^3/uL (2.0-7.7); Basophil# 0.03 X10^3/uL; Basophil% 0.6 % (0-1); Eosinophil# 0.18 X10^3/uL; Eosinophils% 3.4 % (0-5); Hematocrit 36.3 % (40-54); Hemoglobin 11.7 g/dL (13.0-16.5); Lymphocyte % 34.5 % (19-41); Mean Corp Hgb Conc 32.2 g/dL (32-36); Mean Corpuscular Volume 99.2 fL (80-94); Mean Platelet Vol. 9.3 fl (6.2-12.0); Monocyte# 0.49 X10^3/uL; Monocyte% 9.4 % (0-10); NRBC Flagged by Analyzer 0 % (0-5); Neutrophil # 2.67 X10^3/uL (2.7-7.7); Neutrophil % 51.1 % (47-70); Platelet Count 128 K/mm3 (150-450); RBC Distribution Width CV 14.7 % (11.6-14.6); RBC Distribution Width SD 52.7 fl (35.1-43.9); Red Blood Count 3.66 M/mm3 (4.6-6.2); White Blood Count 5.2 K/mm3 (4.4-11.0)
[2021-06-08 08:46] LABS: Magnesium 1.8 mg/dL (1.6-2.6)
[2021-06-08 08:52] LABS: AST(SGOT) 14 U/L (15-37); Alanine Aminotransfer ALT/SGPT 20 U/L (16-61); Albumin, Serum 3.2 g/dL (3.2-5.0); Alkaline Phosphatase 52 U/L (45-117); Anion Gap 6 (5-15); BUN 25 mg/dL (7-18); BUN/Creat Ratio 16.6 RATIO (10-20); Calcium,Total 9.8 mg/dL (8.5-10.1); Chloride 108 mmol/L (98-107); Creatinine, Serum 1.51 mg/dL (0.70-1.30); EST Glomerular Filtration Rate 47 mL/min (>60); Est Glom Filt Rate - Afr Amer 57 mL/min (>60); Estimated Creatinine Clearance 43.52 ml/min; Globulin 3.1 g/dL (2.2-4.2); Glucose 276 mg/dL (74-106); LDH 147 U/L (87-241); Phosphorus 2.8 mg/dL (2.5-4.9); Potassium 4.5 mmol/L (3.5-5.1); Protein, Total 6.3 g/dL (6.4-8.2); Sodium Level 141 mmol/L (136-145)
[2021-06-08 09:49] VITALS: BMI 30.7
[2021-06-08] MEDS: 0.9% Normal Saline 250 ML IV.SOLN. IV (09:56)
[2021-06-08 16:28] LABS: Xtra Tube EP Lab EXTRA TUBE
== END | disposition home or self-care (01) ==
LOC: RAO 04-23 14:51 → ONC 05-19 12:30 → RAO 05-19 13:00 → ONC 06-08 08:30 → RAO 06-08 10:00
PROVIDERS: PCP Family Medicine; Referring Provider Internal Medicine Medical Oncology; Visit Provider Student in an Organized Health Care Education/Training Program
DX: Z51.0 Encounter for antineoplastic radiation therapy (principal); C61 Malignant neoplasm of prostate; C68.9 Malignant neoplasm of urinary organ, unspecified
CPT/HCPCS: 36591; 77014; 77290; 77300; 77301; 77336; 77338; 77386; 80053; 83615; 83735; 84100; 85025; 96367; 96413; J7050; Q9967; A4216; J2405; J3490; J9201

== ENCOUNTER 2021-06-30 10:56 | Emergency (ER) | payer MEDICARE, OTHER, SELFPAY ==
[2021-06-30 10:57] VITALS: BP 90/50; PULSE 67; RESP 16; TEMP 36.5; O2SAT 100; BMI 30.2
--- NOTE | 2021-06-30 11:56 | CT_ITS ---
STUDY: CT BRAIN WITHOUT CONTRAST REASON FOR EXAM: Male, 86 years old. polytrauma, headache RADIATION DOSAGE (If Supplied By Facility): CTDIvol = ( 44.99 ) mGy, DLP = ( 846.73 ) mGycm TECHNIQUE: Transaxial CT imaging of the brain was performed without administration of intravenous contrast material. Individualized dose optimization techniques were used for this CT. COMPARISON: No relevant priors. FINDINGS: Normal soft tissue structures. Normal calvarium. There is moderate cerebral atrophy with widening of the extra-axial spaces and ventricular dilatation. There are areas of decreased attenuation within the white matter tracts of the supratentorial brain, consistent with microvascular disease changes. Normal basal ganglia and thalami. Normal brainstem. Normal cerebellum. There is no intracranial hemorrhage. There are no findings of an acute ischemic infarction. Normal visualized paranasal sinuses. CT/Brain/Head without Contrast IMPRESSION: Chronic involutional changes of the brain. Electronically Signed: Gordy Mckeon MD at 12:22 EST Tel , Service support ,
--- NOTE | 2021-06-30 11:56 | CT_ITS ---
STUDY: CT CERVICAL SPINE WITHOUT CONTRAST REASON FOR EXAM: Male, 86 years old. polytrauma RADIATION DOSAGE (If Supplied By Facility): CTDIvol = ( 23.50 ) mGy, DLP = ( 497.74 ) mGycm TECHNIQUE: High resolution transaxial imaging was performed without contrast material. Sagittal and coronal images were reconstructed. Individualized dose optimization techniques were used for this CT. COMPARISON: None FINDINGS: Normal craniovertebral junction. Normal anterior atlantoaxial articulation. Normal odontoid process. Normal cervical lordosis. Normal vertebral bodies and posterior osseous elements. C2-3: Normal endplates. Normal disc height and morphology. Normal central canal and intervertebral neuroforamina. C3-4: Mild bilateral facet B. 2 mm retrolisthesis of C3 on C4 with a moderate broad disc osteophyte complex which produces moderate spinal stenosis and moderate bilateral neural foraminal stenosis. C4-5: Moderate right facet hypertrophy produces mild right neural foraminal stenosis. No central spinal stenosis. C5-6: Mild broad disc protrusion produces mild spinal stenosis but no neural foraminal stenosis. C6-7: Moderate broad disc osteophyte complex and bilateral uncovertebral hypertrophy produces moderate spinal stenosis and moderate left neural foraminal stenosis. C7-T1: Normal endplates. Normal disc height and morphology. Normal central canal and intervertebral neuroforamina. There is enlargement of left lobe of the thyroid gland worrisome for nodule correlation with ultrasound is recommended. CT/Spine Cervical without Contras IMPRESSION: 1. No acute fracture or subluxation. 2. Diffuse degenerative disc disease. 3. Suspect nodule the left lobe of the gland and correlation with ultrasound is recommended. Electronically Signed: Gordy Mckeon MD at 12:27 EST Tel , Service support ,
--- NOTE | 2021-06-30 12:00 | EX.ED.DYSGE1 ---
HPI History of Present Illness Chief Complaint: Fall Informant: patient Narrative Narrative: 86-year-old male on apixaban presents to the emergency department with neck pain. Patient states that he went to get into his chair and the room was dark and he missed the chair and struck his neck right at the C1 occipital area. He notes pain with movement. No loss of conscious. He denies any arm or leg symptoms. Patient went to his oncology appointment today and had continence of stool was noted to be wobbly. He notes he has been having some diarrhea. 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 Bilateral pulmonary embolism (01/2019) Bladder cancer Bladder disease Cancer Chemotherapy management, encounter for Diabetes Discoloration of skin Dysuria Encounter for education Essential (primary) hypertension Fall Former smoker Hematuria, gross High cholesterol History of stress test Hyperlipidemia Hypertension Injury of back Large B-cell lymphoma Low back pain Lower urinary tract symptoms Lymphoma Obesity Peripheral vascular occlusive disease Prostate disease Pulmonary embolism Recurrent right inguinal hernia Right inguinal hernia Right leg pain Scrotal abscess Secondary pulmonary arterial hypertension Shortness of breath on exertion Sleep apnea Thyromegaly Type 2 diabetes mellitus Venous insufficiency (chronic) (peripheral) Wears dentures Home Medications lisinopril 20 mg tablet 20 mg PO BID tab 04/05/18 [History Last Taken 04/08/21 06:00] lovastatin 40 mg tablet 40 mg PO QHS 04/05/18 [History Last Taken 04/07/21] metformin 1,000 mg tablet 1,000 mg PO BID 04/05/18 [History Last Taken 04/07/21] omega-3 fatty acids-fish oil 1 cap PO BID 04/10/18 [History Last Taken 04/04/21] tamsulosin 0.4 mg PO QHS 09/08/18 [History Last Taken 04/07/21] metoprolol tartrate 50 mg PO BID 09/19/18 [History Last Taken 04/08/21 06:00] cholecalciferol (vitamin D3) 25 mcg (1,000 unit) tablet 25 mcg PO BID tab 01/24/19 [History Last Taken 04/07/21] ferrous sulfate 65 mg PO DAILY 04/05/19 [History Last Taken 04/07/21] mirabegron 50 mg PO DAILY 09/18/19 [History Last Taken 04/07/21] amlodipine 10 mg tablet 10 mg PO DAILY tab 11/06/20 [History Last Taken 04/08/21 06:00] lidocaine-prilocaine 2.5 %-2.5 % topical cream 1 applic TOPICAL ONCE PRN 30 Days #30 g 05/20/21 [Rx Last Taken Unknown] ondansetron 4 mg disintegrating tablet 4 mg PO Q8H PRN #30 tab 05/20/21 [Rx Last Taken Unknown] glimepiride 1 mg tablet 2 mg PO DAILY tab 06/01/21 [History Last Taken Unknown] apixaban 5 mg tablet 5 mg PO BID #180 tab 06/16/21 [Rx Last Taken Unknown] ciprofloxacin HCl 500 mg tablet 500 mg PO Q12H #14 tab 06/16/21 [Rx Last Taken Unknown] Allergy/AdvReac Type Severity Reaction Status Date / Time No Known Allergies Allergy Verified 06/30/21 10:33 Family History Sister Breast cancer Diabetes Mother Diabetes Brother Heart disease Hypertension Surgical History Femoral-popliteal bypass graft occlusion, right H/O coronary artery bypass surgery (2006) H/O hernia repair History of appendectomy History of bladder surgery (09/2019) History of cataract extraction History of femoral angiogram (11/21/12) History of herniorrhaphy History of right-sided carotid endarterectomy History of tonsillectomy and adenoidectomy History of transurethral destruction of bladder lesion (12/2018) Hx of lymph node biopsy Social History Smoking Status: Former smoker how long ago did patient quit smokin years ago alcohol intake: current alcohol intake frequency: a few times a week substance use type: does not use caffeine: Yes Type: coffee Number of servings: 2 lars/synagogue: None seatbelt use: always do you feel safe at home: Yes ROS ROS ED Constitutional Constitutional ED: Denies chills, fever(s) or weight loss Eyes Eyes: Denies change in vision or diplopia ENT ENT ED: Denies ear pain, rhinorrhea or sore throat Cardiovascular Cardiovascular: Denies chest pain, orthopnea, palpitations or racing heartbeat Respiratory/Chest Respiratory/Chest: Denies cough, dyspnea or orthopnea Gastrointestinal Gastrointestinal: Denies abdominal pain, diarrhea, nausea or vomiting Genitourinary Genitourinary ED: Denies dysuria, hematuria or urinary frequency Musculoskeletal Musculoskeletal: Reports neck pain; Denies arthralgias or myalgias Integumentary Denies abscess or rash Neurologic Neurologic: Denies headache(s) or weakness Psychiatric Psychiatric: Denies anxiety, depression, suicidal ideation or suicidal thoughts Endocrine Endocrinology: Denies polydipsia, polyphagia or polyuria Allergic/Immunologic Allergic/Immunologic ED: Denies mouth swelling, tongue swelling or urticaria EXAM Physical Exam Const Vital Signs: 06/30/21 10:57 Temperature 97.7 F L Temperature Source Temporal Pulse Rate 67 Respiratory Rate 16 Blood Pressure 90/50 L Blood Pressure Mean 63 Pulse Ox 100 Oxygen Delivery Method Room Air Positive well nourished and well developed General Appearance ED: well developed HEENT Reports normocephalic, head/scalp atraumatic, TM's clear and moist mucous membranes Negative for trauma Tympanic Membrane ED: Yes TM's clear Eyes PERRL and EOMs intact bilaterally Neck no lymphadenopathy, supple and no JVD Neck Narrative: Tenderness to palpation C1 and the occipital region of scalp Resp normal respiratory effort and clear to auscultation bilaterally Cardio regular rate, regular rhythm and no murmurs GI normal to inspection, nondistended, normoactive bowel sounds and non-tender Palpation: soft Back/Spine no CVA tenderness and normal ROM Extremity normal to inspection General Extremety ED: Negative for edema General Extremity: Negative for edema Neuro oriented x3 and CN's II-XII intact bilaterally Sensorium / Orientation: alert Motor Exam: strength 5/5 throughout Psych mental status grossly normal Mood & Affect: Negative for depressed or tearful Skin no rashes or lesions noted and no wounds MDM MDM MDM Narrative Medical decision making narrative: CT of the head and neck demonstrates no acute fracture or intracranial hemorrhage. At this point patient be discharged home return if worsening or concerns Radiography Diagnostic Testing: Clinical Impression(s) from Imaging Studies Brain CT 06/30/21 11:56 IMPRESSION: Chronic involutional changes of the brain. Electronically Signed: Gordy Mckeon MD at 12:22 EST Tel , Service support , Cervical Spine CT 06/30/21 11:56 IMPRESSION: 1. No acute fracture or subluxation. 2. Diffuse degenerative disc disease. 3. Suspect nodule the left lobe of the gland and correlation with ultrasound is recommended. Electronically Signed: Gordy Mckeon MD at 12:27 EST Tel , Service support , Discharge Plan Triage Chief Complaint: Fall ED Provider: [place] Gomez Dx/Rx/DC Orders Clinical Impression: Acute cervical myofascial strain, Head injury, Anticoagulated Instructions: ED Neck Sprain or Strain Prescriptions: No Action metformin 1,000 mg tablet 1,000 mg PO BID RF: 0 lisinopril 20 mg tablet 20 mg PO BID RF: 0 lovastatin 40 mg tablet 40 mg PO QHS RF: 0 cholecalciferol (vitamin D3) 1,000 unit tablet 25 mcg PO BID RF: 0 amlodipine 10 mg tablet 10 mg PO DAILY RF: 0 glimepiride 1 mg tablet 2 mg PO DAILY RF: 0 lidocaine-prilocaine 2.5-2.5 % cream 1 applic topical ONCE PRN (Reason: port access) 30 Days Qty: 30 RF: 2 ondansetron 4 mg tablet,disintegrating 4 mg PO Q8H PRN (Reason: nausea and vomiting) Qty: 30 RF: 2 omega-3 fatty acids-fish oil 1 EACH capsule 1 cap PO BID RF: 0 tamsulosin 0.4 MG capsule 0.4 mg PO QHS RF: 0 metoprolol tartrate 50 MG tablet 50 mg PO BID RF: 0 ferrous sulfate 27 MG tablet 65 mg PO DAILY RF: 0 mirabegron 50 MG tablet extended release 24 hr 50 mg PO DAILY RF: 0 apixaban 5 mg tablet 5 mg PO BID Qty: 180 RF: 3 Hold Instructions: Resume on 04/17/21. ciprofloxacin HCl 500 mg tablet 500 mg PO Q12H Qty: 14 RF: 0 Primary Care Provider: Livan Mcfarland Referrals: Livan Mcfarland MD [Primary Care Provider] - As Needed Disposition Disposition: Home, Self Care
[2021-06-30 13:10] VITALS: BP 124/67; PULSE 62; RESP 15; O2SAT 96; O2SAT 97
== END 2021-06-30 13:13 | disposition home or self-care (01) ==
PROVIDERS: Emergency Provider Emergency Medicine; PCP Family Medicine
DX: S16.1XXA Strain of muscle, fascia and tendon at neck level, initial encounter (principal); W17.89XA Other fall from one level to another, initial encounter; R19.7 Diarrhea, unspecified; S09.90XA Unspecified injury of head, initial encounter; E11.9 Type 2 diabetes mellitus without complications; E66.9 Obesity, unspecified; E78.5 Hyperlipidemia, unspecified; G47.30 Sleep apnea, unspecified; I10 Essential (primary) hypertension; I25.10 Atherosclerotic heart disease of native coronary artery without angina pectoris; I27.21 Secondary pulmonary arterial hypertension; I87.2 Venous insufficiency (chronic) (peripheral); Z79.01 Long term (current) use of anticoagulants; Z79.84 Long term (current) use of oral hypoglycemic drugs; Z87.891 Personal history of nicotine dependence; Z79.899 Other long term (current) drug therapy
CPT/HCPCS: 36591; 70450; 72125; 80053; 83615; 85025; 99282; A4216

== ENCOUNTER 2021-07-28 10:45 | Outpatient (CLI) | payer MEDICARE, OTHER, SELFPAY | END 2021-07-28 23:59 | disposition short-term general hospital (02) | LOC: LABSPEC 10:47 | PROVIDERS: PCP Family Medicine; Visit Provider Urology | DX: R31.0 Gross hematuria (principal) | CPT/HCPCS: 87086; 87088 ==

== ENCOUNTER 2021-09-22 14:13 | Outpatient (CLI) | payer MEDICARE, OTHER, SELFPAY ==
--- NOTE | 2021-09-22 14:17 | CT_ITS ---
STUDY: CT CHEST, ABDOMEN T PELVIS WITH CONTRAST ENHANCEMENT OF 1434 HOURS ON 09/22/2021 REASON FOR EXAM: 86-year-old male. Evaluate for disease status. RADIATION DOSAGE (If Supplied By Facility): CTDIvol = ( 22.21 ) mGy, DLP = ( 3524.81 ) mGycm TECHNIQUE: Transaxial imaging was performed following intravenous administration of IV 100mL Isovue-300. Individualized dose optimization techniques were used for this CT. COMPARISON: No relevant priors. FINDINGS: CHEST There is prominent enlargement of the left thyroid lobe with a large irregular 3.5 cm diameter mass in the left thyroid lobe. There are fibrotic changes at the peripheral base of the left upper lobe. There are fibrotic and granulomatous changes in the apical segment of the right upper lobe. Otherwise, no evidence of pulmonary infiltrates, atelectasis, effusion, mass lesions, or metastatic disease.. There is no demonstrated pleural abnormality. Normal heart and pericardium. No pulmonary thromboembolism. No thoracic aortic dissection or aneurysm. Mild mediastinal lymphadenopathy. Normal hilar regions. Normal unenhanced pulmonary arteries. Normal aorta arch and descending thoracic aorta. ABDOMEN Normal liver and spleen without defects. No evidence for hepatic or splenic metastatic disease. Multiple phleboliths in the spleen now. Normal gallbladder without gallstones. Normal pancreas without pancreatic mass lesions or pancreatitis. Large 6.8 cm diameter simple cyst in the superior pole of left kidney. Prominent left renal pelvis--normal variant. No obstructive uropathy. Heavily calcified tortuous abdominal aorta without evidence of aneurysm or dissection. Heavily calcified iliac arteries without aneurysms. No periaortic lymphadenopathy. Findings suggestive of a previous appendectomy. No diverticulitis, colitis, or intestinal obstruction. Normal small intestine. PELVIS Prominent eccentric thickening (anteriorly and on the right) of the wall of the bladder to 12 mm. Consider a cystitis or neoplasia. Prostate is mildly heterogeneous and measures 3.2 cm in diameter. Normal visualized small intestine. Normal visualized colon. There is no pelvic fluid. There is no pelvic lymphadenopathy or mass lesion. Normal visualized pelvic arteries. Normal abdominal wall. Normal osseous structures. OSSEOUS STRUCTURES Previous sternal thoracotomy. Otherwise, normal chest. Sternum. C6-7 intervertebral disc space with prominent osteophytic degenerative changes. No fractures, subluxations or intervertebral disc space narrowing of the thoracic spine. There is marked narrowing of the L4-5 and L5-S1 intervertebral disc spaces. There are mild osteophytic degenerative changes of the lower lumbar spine. The pelvic bones and hips have a normal appearance. There are no findings of osseous metastatic disease. CT/CT Chest, Abd, Pel w/Contrast IMPRESSION: 1. Enlargement of the left thyroid lobe with a large irregular 3.5 cm diameter mass in the left thyroid lobe. 2. Necrotic changes at the peripheral base of the left upper lobe and granulomatous and fibrotic changes in the apical segment of the right upper lobe. No other infiltrates, atelectasis, effusion, mass lesions, or metastatic disease. 3. No cardiomegaly or heart failure. 4. No pulmonary thromboembolism. 5. No thoracic or abdominal aortic dissection or aneurysm. 6. Mild mediastinal lymphadenopathy, but no periaortic or pelvic lymphadenopathy. 7. Large 6.8 cm diameter simple cyst in superior pole left kidney. Prominent right renal pelvis, normal variant. No obstructive uropathy. 8. Findings suggestive of a previous appendectomy. 9. No diverticulitis, colitis, intestinal obstruction. 10. Prominent eccentric thickening (anteriorly and on the right) of the wall of the bladder to 12 mm--neoplasia versus cystitis. 11. No osseous metastatic disease. Previous sternal thoracotomy. Marked narrowing of the L4-5 and L5-S1 intervertebral disc. No other significant abnormalities. Electronically Signed: Remigio Matias MD at 20:07 EDT ,
[2021-09-22] MEDS: 0.9% Saline Lock 10 ML Syringe IV (14:35)
== END 2021-09-22 23:59 | disposition home or self-care (01) ==
LOC: CT 14:14
PROVIDERS: PCP Family Medicine; Referring Provider Student in an Organized Health Care Education/Training Program; Visit Provider Student in an Organized Health Care Education/Training Program
DX: C67.9 Malignant neoplasm of bladder, unspecified (principal)
CPT/HCPCS: 71260; 74177; Q9967; A4216

== ENCOUNTER 2022-05-18 08:38 | Outpatient (CLI) | payer MEDICARE, OTHER, SELFPAY ==
[2022-05-18] VITALS (10 sets, daily range): BP systolic 115–142; BP diastolic 54–67; PULSE 78–93; RESP 13–21; TEMP 36.3; O2SAT 95–100; BMI 28.3
--- NOTE | 2022-05-18 | IMM_PTH ---
PATIENT: RANULFO NEGRETE LOC: CT U#:[id number] AGE/SX: 87/M ROOM: RE05/18/[address]: Dr. Nash Kunz MD : [id number] BED: DIS: 05/18/2022 SPEC #: [id number] RECD: 05/19/22 10:08 STATUS: EMY REQ #: [id number] LEN: 05/18/22 00:[address]: Nash Kunz DEPT: IMMUNOHISTOCHEMISTRY RECD BY: Linsey Casiano ENTERED: 05/19/22 10:10 SP TYPE: IMMUNO OTHR DR: Dr. Livan Mcfarland MD Tissues: Bone marrow of iliac crest Procedures: CD138 (add) CK8 (add) KAPPA (add) LAMBDA (add) Pankeratin (add) CD34 (initial) PHYSICIAN & INSTITUTION [place] [id number] SPECIMEN INFORMATION: Tissue Source: A. Bone marrow, core Clinical Info: Persistent anemia requiring transfusion Specimen Number: [id number] CPT code: 90919, 31776 x5 METHODOLOGY: Deparaffinized sections of prefer/formalin-fixed tissue or PAP/DQ stained slides are incubated with monoclonal/polyclonal antibodies/oligonucleotide probes. Localization is made via biotin free immunoperoxidase method. Appropriate controls are performed and reacted as expected. Results on target cell population are indicated in the following table: RESULTS: ANTIBODY / CLONE RESULT CD34 (QBEnd-10) positive, rare cells CD138 (B-A38) positive, rare cells Amalga (polyclonal) positive, rare cells Lambda (polyclonal) positive, rare cells AE1-3 (AE1/AE3/PCK26) negative CK8 (48spxmE20) negative These tests were developed and their performance characteristics determined by [facility]. They may not have been cleared or approved by the U.S. Food and Drug Administration. The FDA has determined that such clearance or approval is not necessary. The above immunohistochemical/dualISH markers are ordered and reviewed by the Pathologist. INTERPRETATION: Bone marrow, core: Significant increase of blasts or plasma cells are not seen. Negative for malignancy /SJ:cc 05/20/2022
--- NOTE | 2022-05-18 08:40 | CT_ITS ---
PROCEDURE: CT GUIDED BONE marrow biopsy and aspirate. DATE: 05/18/2022. INDICATION: Male, 87 years old. Lymphadenopathy. PHYSICIAN: Roney Conde M.D. RADIATION DOSAGE (If Supplied By Facility): CTDIvol = ( 18.6 ) mGy, DLP = ( 614.39 ) mGycm PROCEDURE: The risks, benefits, and alternatives to the procedure were explained to the patient. The specific risk of hemorrhage requiring further treatment or intervention was detailed and accepted. Follow-up instructions were discussed with the patient as well. Written informed consent was obtained. The patient was brought into the CT suite and placed in the prone position. . An appropriate entry site was identified. The overlying skin was prepped and draped in the usual sterile fashion. 1% lidocaine was administered subcutaneously for local anesthesia. Conscious sedation was performed. The patient received 2 mg of VERSED and 50 mcg of FENTANYL intravenously. Conscious sedation was started at 10:10 AM and terminated at 10:28 AM. The patient was independently monitored by the department nurse. Under CT guidance, a bone marrow biopsy and bone marrow aspirate of the posterior right iliac bone were performed utilizing an 11-gauge bone marrow core biopsy kit. The specimens were then placed in the appropriate fluid and transported to the laboratory for analysis. Hemostasis was obtained. The patient tolerated the procedure well without immediate complications. CT/Biopsy/Inj or Needle Placement IMPRESSION: Successful CT guided right iliac bone marrow biopsy and bone marrow aspirate using an 11-gauge bone marrow core biopsy kit, as described above. Conscious sedation protocol was followed. Electronically Signed: Roney Conde MD at 11:05 EST ,
[2022-05-18 09:17] LABS: Absolute Lymphocyte Count 1.34 X10^3/uL (0.83-4.51); Absolute Neutrophil Count 1.2 X10^3/uL (2.0-7.7); Basophil# 0.04 X10^3/uL; Basophil% 1.3 % (0-1); Eosinophil# 0.04 X10^3/uL; Eosinophils% 1.3 % (0-5); Hematocrit 26.1 % (40-54); Hemoglobin 8.2 g/dL (13.0-16.5); Lymphocyte # 1.34 X10^3/ul (0.83-4.51); Lymphocyte % 44.4 % (19-41); Mean Corp Hgb Conc 31.4 g/dL (32-36); Mean Corpuscular Hgb 33.2 pg (27.0-32.0); Mean Corpuscular Volume 105.7 fL (80-94); Monocyte# 0.33 X10^3/uL; Monocyte% 10.9 % (0-10); NRBC Flagged by Analyzer 0 % (0-5); Neutrophil # 1.24 X10^3/uL (2.7-7.7); Neutrophil % 41.1 % (47-70); POSITIVE MORPHOLOGY YES; Platelet Count 102 K/mm3 (150-450); RBC Distribution Width CV 19.3 % (11.6-14.6); RBC Distribution Width SD 74.3 fl (35.1-43.9); Red Blood Count 2.47 M/mm3 (4.6-6.2)
[2022-05-18 09:18] LABS: Differential Indicated SCAN CRITERIA MET
[2022-05-18 09:25] LABS: International Normalized Ratio 1.2; Prothrombin Time (Protime)PT. 14.7 SECONDS (11.7-14.9)
[2022-05-18 09:26] LABS: Partial Thromboplast Time 38.5 Seconds (24.1-36.2)
[2022-05-18 09:39] LABS: Anisocytosis 1+
--- NOTE | 2022-05-18 10:00 | BMB_PTH ---
PATIENT: RANULFO NEGRETE LOC: CT U#:[id number] AGE/SX: 87/M ROOM: RE05/18/[address]: Dr. Nash Kunz MD : [id number] BED: DIS: 05/18/2022 SPEC #: [id number] RECD: 05/18/22 10:56 STATUS: EMY RETommy #: [id number] LEN: 05/18/22 10:[address]: Nash Kunz DEPT: BONE MARROW RECD BY: Arianna Cameron ENTERED: 05/18/22 10:56 SP TYPE: BMB DINH DR: Dr. Livan Mcfarland MD Tissues: A - Bone marrow, NOS B - Bone marrow, NOS C - Bone marrow, NOS Procedures: Decalcification bone/plaque Bone Marrow Aspiration Bone Marrow Core Biopsy Iron Stain Bone Marrow HEADER OPERATION: Bone marrow biopsy and aspiration PRE-OP DIAGNOSIS: Persistent anemia requiring transfusion TISSUE SUBMITTED: A - Core, B - Clot, C - Smears, and send outs (flow, cytogenetics and FISH) BONE MARROW DIAGNOSIS Bone marrow core, clot and aspirate smears: Mildly hypercellular marrow for patient?s age with trilineage hematopoiesis and myeloid hypolasia. Negative for metastatic carcinoma. See comment. SJ:zion 05/24/2022 COMMENT Flow cytometry study from [employer] shows marginal increase in CD34 positive blasts (3-4%). In the sample analyzed, there is no evidence of an acute leukemia, a lymphoproliferative disorder or plasma cell neoplasm. Cytogenetic studies are pending at this time. Immunohistochemistry ([id number]) supports the above diagnosiss. Please make reference to previous specimens ([id number]) Urinary bladder tumor, TUR with diagnosis of ?urothelial carcinoma? and ([id number]) prostate chips, TUR with diagnosis of ?invasive urothelial carcinoma? and ([id number]) bladder tumor, biopsy with diagnosis of ?a minute fragment of urothelial carcinoma? and ([id number]) left axillary lymph nodes, biopsy with diagnosis of ?B-cell neoplasm favoring large B-cell lymphoma.? Case has been reviewed in consultation with Dr. Wlelington who concurs with the above diagnosis. IDC:AM BONE MARROW STUDY Slides are reviewed. CBC DATE: 05/18/2022 WBC 3.0; RBC 2.47; HGB 8.2; HCT 26.1; MCV 105.7; RDW 19.3; PLTS 102,000 SEGS 41.1%; LYMPHS 44.4%; MONOS 10.9%; EOS 1.3%; BASOS 1.3%, immature granulocyte 1.0 PERIPHERAL SMEAR: Submitted. Pancytopenia. RBC: Macrocytic anemia WBC: The WBC count is compatible to as reported above. Leukopenia and neutropenia. Rare immature cells consistent with blasts are noted. PLTS: Decreased BONE MARROW ASPIRATE DIFFERENTIAL: 200 cell count. Blasts % (normal 0-2): 2 Promyelocytes % (normal 1-5): 2 Myelocytes and metamyelocytes % (normal 17-41): 13 Bands and Segs % (normal 15-32): 22 Eos % (normal 1-6): 0 Basos % (normal 0-1): 0 Monocytes % (normal 0-4): 2 Erythroid Precursors % (normal 17-35): 46 Lymphocytes % (normal 7-13): 13 Plasma Cells % (normal 0-2): 0 ASPIRATE FINDINGS: Site: Right hip Aspicular, Hypocellular M/E ratio (Normal 1.5-4.0): 0.8 Megakaryocytes: Present. Rare hypolobated megakaryocytes noted. Megakaryocytes appear to be decreased in number. Erythropoiesis: Normoblastic. Granulopoiesis: Myeloid hypoplasia is noted. Comment: Significant increased number of Immature cells consistent with blasts are not seen. CORE BIOPSY FINDINGS: Site: Right hip Adequacy: Adequate Cellularity: 50-60% M/E ratio: Myeloid hypoplasia is noted. Megakaryocytes: Megakaryocytes present and adequate in number. Bony trabeculae: Unremarkable. Granulomas: Absent. Lymphoid aggregate: Absent. Atypical infiltrate: Absent. Comment: Immunohistochemistry ([id number]) does not show significant increased number of blasts or plasma cells. No evidence of metastatic malignancy. ASPIRATE CLOT FINDINGS: Site: Right hip Marrow particles: Rare Cellularity: 50-60% M/E ratio: Within normal limits. Megakaryocytes: Present and adequate in number. Granulomas: Absent. Lymphoid aggregates: Absent. Atypical infiltrates: Absent. SPECIAL STAINS WITH MATCHED CONTROLS: Iron: Trace in core biopsy. Reticulin: No significant increase of reticulin fibers is noted. PAS: Highlights myeloid cells and megakaryocytes. BONE MARROW GROSS A - Received is a container labeled with the patient's name and designated bone marrow core. The specimen consists of a piece of bean bone measuring 0.3 cm in length and 0.1 cm in diameter. The specimen is totally submitted in one cassette after decalcification. B - Received labeled with the patient's name and designated bone marrow clot is a specimen that consists of approximately 8 ml of bloody fluid that on filtration yields multiple minute fragments of blood clots measuring in aggregate 3 x 2.5 x 0.1 cm. The specimen is totally submitted in one cassette. C - Also received are 14 unstained and 1 peripheral stained slides. The unstained slides are submitted for appropriate staining. Also received is 1 green top tube which is sent to our reference lab for flow, cytogenetics and FISH. 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 Karyotype: 48,XY,-5,+6,-7,+8,add(12)(p11.2),+19,+r[16]46,XY[5] FLUORESCENCE IN-SITU HYBRIDIZATION (FISH) FROM [facility] MDS-RELATED DISEASES AND OTHER INTERPRETATION: 1. Monosomy 5 (-5) is present. Comment: Loss of one copy of chromosome 5 is seen in myelodysplastic syndrome and acute myeloid leukemia. Clinicopathologic correlation is suggested. 2. Deletion of 7q (7q-) is present. Comment: This abnormality is seen in myelodysplasia syndrome and acute myeloid leukemia. Clinicopathologic correlation is suggested. 3. Trisomy 8 is present. Comment: Trisomy 8 is seen in primary myeloid disorders, including MDS, AML, and chronic myeloproliferative neoplasms. 4. No evidence of deletion of 20q12. 5. No evidence of BCR/ABL rearrangement. 6. No evidence of MLL gene locus 11q23 translocation. Please see complete report in e-chart or EMR
[2022-05-18] MEDS: Midazolam 2 MG/2 ML Syringe IV (10:10)
[2022-05-18] MEDS: fentaNYL 100 MCG/2 ML Ampul IV (10:13)
[2022-05-18] MEDS: Lidocaine 2% (20 ml mdv) 20 ML Vial INFILT (10:22)
[2022-05-18] MEDS: 0.9% Saline Lock 10 ML Syringe IV (11:30)
== END 2022-05-18 23:59 | disposition home or self-care (01) ==
LOC: CT 08:39
PROVIDERS: PCP Family Medicine; Referring Provider Internal Medicine Medical Oncology; Visit Provider Internal Medicine Medical Oncology
DX: R59.9 Enlarged lymph nodes, unspecified (principal); D64.9 Anemia, unspecified; I65.21 Occlusion and stenosis of right carotid artery; Z85.72 Personal history of non-Hodgkin lymphomas; Z01.818 Encounter for other preprocedural examination
CPT/HCPCS: 38222; 77012; 85025; 85610; 85730; 88305; 88311; 88313; 88341; 88342; 99156; J7050; A4216

== ENCOUNTER 2022-07-09 14:53 | Inpatient (IN) | payer MEDICARE, OTHER, SELFPAY ==
[2022-07-09] VITALS (11 sets, daily range): BP systolic 116–144; BP diastolic 30–54; PULSE 78–97; RESP 16–18; TEMP 36.1–37.3; O2SAT 92–97; BMI 28.2; BMI 27.7
--- NOTE | 2022-07-09 16:58 | EKG12_ITS ---
Test Reason : Blood Pressure : / mmHG Vent. Rate : 075 BPM Atrial Rate : 075 BPM P-R Int : 154 ms QRS Dur : 116 ms QT Int : 402 ms P-R-T Axes : 061 -27 176 degrees QTc Int : 448 ms Normal sinus rhythm Incomplete left bundle branch block ST & T wave abnormality, consider inferior ischemia ST & T wave abnormality, consider anterolateral ischemia Abnormal ECG Confirmed by SHERYL MARES, ANNETTA ([id number]), marketing editor MARCELLA KUHN ([id number]) on 07/12/2022 11:04:12 AM Referred By: Confirmed By:CARLOS SAUCEDO MD
--- NOTE | 2022-07-09 17:03 | EDS_ITS ---
HPI History of Present Illness Chief Complaint: Wound Informant: patient and family Onset/Context/Timing Onset: Month(s) (2) Context: Gradual Onset Timing: Continuous Quality: Dull, aching Location: Right great toe Worsened by: Palpation and bumping his toe Relieved by: Nothing Associated Symptoms Associated Symptoms: Decreased appetite Narrative Narrative: Patient presents with right great toe pain that has been getting worse over the past 2 months. Patient describes the pain as aching and dull. Patient states it is worse whenever he bumps it. Patient states it has been constant over the past 2 months. Patient saw his primary care physician today who noted that it was gangrenous and he referred him to the emergency department. Patient also has a history of anemia but has not been following up with routine blood counts. Family also reports patient has not been following up with appointments to have his Mediport flushed. Patient admits to a decreased appetite. Patient admits to some shortness of breath. [facility] Medical History Atherosclerosis of coronary artery of nez perce heart without angina pectoris Atherosclerosis of nez perce artery of both lower extremities with intermittent claudication Basal cell carcinoma of right forearm Bilateral pulmonary embolism (01/2019) Bladder cancer Chemotherapy management, encounter for Diabetes Discoloration of skin Dysuria Encounter for education Essential (primary) hypertension Fall Former smoker Hematuria, gross Hyperlipidemia Injury of back Large B-cell lymphoma Low back pain Lower urinary tract symptoms Lymphoma Obesity Peripheral vascular occlusive disease Prostate disease Recurrent right inguinal hernia Right inguinal hernia Right leg pain Scrotal abscess Secondary pulmonary arterial hypertension Sleep apnea 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 artery Thyromegaly Type 2 diabetes mellitus Venous insufficiency (chronic) (peripheral) Wears dentures Home Medications lisinopril 20 mg tablet 20 mg PO BID Blood pressure 04/05/18 [History Last Taken 07/08/22] lovastatin 40 mg tablet 40 mg PO QHS CHOLESTEROL 04/05/18 [History Last Taken 07/08/22] metformin 1,000 mg tablet 1,000 mg PO BID DIABETES 04/05/18 [History Last Taken 07/08/22] omega-3 fatty acids-fish oil 340 mg-1,000 mg capsule 1 cap PO BID SUPPLEMENT 04/10/18 [History Last Taken 07/09/22] tamsulosin 0.4 mg capsule 0.4 mg PO QHS URINE FLOW 09/08/18 [History Last Taken 07/08/22] metoprolol tartrate 50 mg tablet 50 mg PO BID blood pressure 09/19/18 [History Last Taken 07/09/22] cholecalciferol (vitamin D3) 25 mcg (1,000 unit) tablet 25 mcg PO BID supplement 01/24/19 [History Last Taken 07/08/22] lidocaine-prilocaine 2.5 %-2.5 % topical cream 1 applic topical ONCE PRN port access 30 days #30 grams 05/20/21 [Rx Last Taken Unknown] glimepiride 1 mg tablet 2 mg PO DAILY dm 06/01/21 [History Last Taken 07/09/22] apixaban 2.5 mg tablet (Eliquis) 2.5 mg PO BID blood thinner 12/21/21 [History Last Taken 1 Week Ago ~07/02/22] lenalidomide 10 mg capsule (Revlimid) 10 mg PO DAILY Check with primary doctor 07/09/22 [History Last Taken 07/08/22] Allergy/AdvReac Type Severity Reaction Status Date / Time No Known Allergies Allergy Verified 07/09/22 14:53 Family History Sister Breast cancer Diabetes Mother Diabetes Brother Heart disease Hypertension Surgical History Femoral-popliteal bypass graft occlusion, right H/O coronary artery bypass surgery (2006) H/O hernia repair History of appendectomy History of bladder surgery (09/2019) History of cataract extraction History of femoral angiogram (11/21/12) History of herniorrhaphy History of right-sided carotid endarterectomy History of tonsillectomy and adenoidectomy History of transurethral destruction of bladder lesion (12/2018) Hx of lymph node biopsy Social History Smoking Status: Former smoker how long ago did patient quit smokin years ago alcohol intake: current alcohol intake frequency: a few times a week substance use type: does not use caffeine: Yes Type: coffee Number of servings: 2 lars/restoration: None seatbelt use: always do you feel safe at home: Yes ROS ROS ED Constitutional Constitutional ED: Denies chills or fever(s) Eyes Eyes: Denies blurry vision or change in vision ENT ENT ED: Denies rhinorrhea or sore throat Cardiovascular Cardiovascular: Denies chest pain or palpitations Respiratory/Chest Respiratory/Chest: Reports dyspnea; Denies cough Gastrointestinal Gastrointestinal: Denies nausea or vomiting Genitourinary Genitourinary ED: Denies dysuria or hematuria Musculoskeletal Musculoskeletal: Reports neck pain; Denies back pain Integumentary Denies abscess or rash Neurologic Neurologic: Denies headache(s) or weakness Allergic/Immunologic Allergic/Immunologic ED: Denies mouth swelling or urticaria EXAM Physical Exam Const Vital Signs: 07/09/22 14:53 07/09/22 19:12 Temperature 97.6 F L 96.9 F L Temperature Source Temporal Temporal Pulse Rate 78 80 Respiratory Rate 16 18 Blood Pressure 116/44 L Blood Pressure Mean 68 Pulse Ox 96 97 Oxygen Delivery Method Room Air Room Air Positive well nourished and well developed General Appearance ED: well developed and NAD HEENT Reports moist mucous membranes Eyes PERRL and EOMs intact bilaterally General Eye ED: Yes pale conjunctiva Neck supple and no JVD Resp normal respiratory effort and clear to auscultation bilaterally Cardio regular rate and regular rhythm GI normal to inspection, nondistended, normoactive bowel sounds and non-tender Palpation: soft Extremity Extremity Narrative: The right great toe is necrotic from the MP joint distally. There is tenderness to palpation over this area. Range of motion was limited in all motion secondary to pain. Pedal pulses are equal bilaterally. Capillary refill is less than 2 seconds in the second through fifth digits. Sensation was intact to light touch. General Extremety ED: Negative for edema General Extremity: Negative for edema Neuro oriented x3, CN's II-XII intact bilaterally and no sensory deficits noted Sensorium / Orientation: alert Motor Exam: strength 5/5 throughout MDM MDM MDM Narrative Medical decision making narrative: IV line was established. EKG was obtained. On my interpretation, it shows a normal sinus rhythm with a rate of 75. CT interval was within normal limits. QRS interval was normal. QTc interval was normal. There is borderline left axis deviation at -27. There are nonspecific ST-T wave changes in leads V2 through V4 which are new compared to previous EKG dated 07/24/2020. CBC shows a white blood cell count of 3.8. Hemoglobin was low at 5.0 and hematocrit was 16.4. Prior hemoglobin on 06/22/2022 was 6.8. Basic metabolic profile shows a BUN of 58 and creatinine of 2.24. These are slightly increased from previous results. Glucose was 180. High-sensitivity troponin was normal at 44. Lactic acid was slightly elevated at 2.3. Pro time was slightly elevated at 16.1. INR is 1.3. PTT was 35.7. X-rays of the right foot were obtained. There are 3 views. On my interpretation, there is no evidence of osteomyelitis. There are some degenerative changes of the first MTP joint. There is no fracture or dislocation. Radiologist also interpreted the x-rays and agrees. Patient was started on Unasyn, Flagyl, and vancomycin. Dr. Arndt was in and evaluated the patient. He will continue to follow the patient. He will consult vascular surgery. Case was discussed with Dr. Redmond from oncology. He had no further recommendations. Case was discussed with the hospitalist, Dr. London. He will admit the patient to medical surgical floor. Patient and family understood and were agreeable with the plan. All questions were answered. Lab Data Attestation: I reviewed the patient's lab results. Labs: Laboratory Results - last 24 hr 07/09/22 07/09/22 07/09/22 17:20 17:20 17:20 WBC 3.8 L RBC 1.53 L Hgb 5.0 L* Hct 16.4 L MCV 107.2 H MCH 32.7 H MCHC 30.5 L RDW Std Deviation 80.5 H RDW Coeff of Agustina 21.7 H Plt Count 58 L MPV TNP Immature Gran % (Auto) 1.300 H Neut % (Auto) 47.4 Lymph % (Auto) 32.5 [place] % (Auto) 17.2 H Eos % (Auto) 1.1 Baso % (Auto) 0.5 Absolute Neuts (auto) 1.8 L Absolute Lymphs (auto) 1.23 Nucleated RBC % 0 Diff Path Review May foll Platelet Estimate MOD DEC RBC Morphology N CHROM Hypochromasia 1+ Anisocytosis 2+ Macrocytosis 2+ PT INR APTT Sodium 136 Potassium 4.5 Chloride 106 Carbon Dioxide 19.0 L Anion Gap 11 BUN 58 H Creatinine 2.24 H Estim Creat Clear Calc 28.03 Est GFR (MDRD) Af Amer 36 L Est GFR (MDRD) Non-Af 30 L BUN/Creatinine Ratio 25.9 H Glucose 180 H Lactic Acid Calcium 8.1 L Troponin I High Sens 44 Blood Type Antibody Screen Crossmatch 07/09/22 07/09/22 07/09/22 17:55 17:55 17:55 WBC RBC Hgb Hct MCV MCH MCHC RDW Std Deviation RDW Coeff of Agustina Plt Count MPV Immature Gran % (Auto) Neut % (Auto) Lymph % (Auto) [place] % (Auto) Eos % (Auto) Baso % (Auto) Absolute Neuts (auto) Absolute Lymphs (auto) Nucleated RBC % Diff Path Review Platelet Estimate RBC Morphology Hypochromasia Anisocytosis Macrocytosis PT 16.1 H INR 1.3 APTT 35.7 Sodium Potassium Chloride Carbon Dioxide Anion Gap BUN Creatinine Estim Creat Clear Calc Est GFR (MDRD) Af Amer Est GFR (MDRD) Non-Af BUN/Creatinine Ratio Glucose Lactic Acid 2.3 H* Calcium Troponin I High Sens Blood Type O NEGATIVE Antibody Screen NEGATIVE Crossmatch 07/09/22 17:55 WBC RBC Hgb Hct MCV MCH MCHC RDW Std Deviation RDW Coeff of Agustina Plt Count MPV Immature Gran % (Auto) Neut % (Auto) Lymph % (Auto) [place] % (Auto) Eos % (Auto) Baso % (Auto) Absolute Neuts (auto) Absolute Lymphs (auto) Nucleated RBC % Diff Path Review Platelet Estimate RBC Morphology Hypochromasia Anisocytosis Macrocytosis PT INR APTT Sodium Potassium Chloride Carbon Dioxide Anion Gap BUN Creatinine Estim Creat Clear Calc Est GFR (MDRD) Af Amer Est GFR (MDRD) Non-Af BUN/Creatinine Ratio Glucose Lactic Acid Calcium Troponin I High Sens Blood Type Antibody Screen Crossmatch See Detail Radiography Diagnostic Testing: Clinical Impression(s) from Imaging Studies Foot X-Ray 07/09/22 18:17 IMPRESSION: 1. No evidence of fracture or malalignment involving the RIGHT foot. 2. Degenerative change involving the first MTP and the first interphalangeal joint. Electronically Signed: Gordy Bardales MD at 18:37 EST , EKG Initial EKG: Attestation: I personally reviewed and interpreted this EKG as follows: Interpretation: Sinus Rhythm and Non-Specific ST Changes Prior EKG tracings: available for review Prior: Changed (The nonspecific ST-T wave changes in leads V2 through V4 are new compared to previous EKG dated 07/24/2020.) Critical Care Time Critical Care Time: Yes Critical care time (excluding procedures): 30-74 minutes (33), Including time spent:, Discussing w/Patient &/or Family/Insurance Claims Representative, Discussing w/Consultants, Arranging Admission or Transfer and Performing Direct Patient Care at Bedside Discharge Plan Triage Chief Complaint: Wound ED Provider: Theo Obregon Dx/Rx/DC Orders Clinical Impression: Dry gangrene, Type 2 diabetes mellitus, Peripheral vascular occlusive disease, Anemia, Acidosis, lactic Prescriptions: No Action metformin 1,000 mg tablet 1,000 mg PO BID lisinopril 20 mg tablet 20 mg PO BID lovastatin 40 mg tablet 40 mg PO QHS cholecalciferol (vitamin D3) 1,000 unit tablet 25 mcg PO BID glimepiride 1 mg tablet 2 mg PO DAILY lidocaine-prilocaine 2.5-2.5 % cream 1 applic topical ONCE PRN (Reason: port access) 30 Days Qty: 30 2RF omega-3 fatty acids-fish oil 1 EACH capsule 1 cap PO BID tamsulosin 0.4 MG capsule 0.4 mg PO QHS metoprolol tartrate 50 MG tablet 50 mg PO BID lenalidomide [Revlimid] 10 mg capsule 10 mg PO DAILY Eliquis 2.5 mg tablet 2.5 mg PO BID Primary Care Provider: Livan Mcfarland Referrals: Livan Mcfarland MD [Primary Care Provider] - Disposition Disposition: Acute Care Hospital [facility]
[2022-07-09 17:41] LABS: Absolute Lymphocyte Count 1.23 X10^3/uL (0.83-4.51); Absolute Neutrophil Count 1.8 X10^3/uL (2.0-7.7); Basophil# 0.02 X10^3/uL; Basophil% 0.5 % (0-1); Eosinophil# 0.04 X10^3/uL; Eosinophils% 1.1 % (0-5); Hematocrit 16.4 % (40-54); Lymphocyte # 1.23 X10^3/ul (0.83-4.51); Lymphocyte % 32.5 % (19-41); Mean Corp Hgb Conc 30.5 g/dL (32-36); Mean Corpuscular Hgb 32.7 pg (27.0-32.0); Mean Corpuscular Volume 107.2 fL (80-94); Monocyte# 0.65 X10^3/uL; Monocyte% 17.2 % (0-10); NRBC Flagged by Analyzer 0 % (0-5); Neutrophil % 47.4 % (47-70); POSITIVE COUNT YES; POSITIVE MORPHOLOGY YES; Platelet Count 58 K/mm3 (150-450); RBC Distribution Width CV 21.7 % (11.6-14.6); RBC Distribution Width SD 80.5 fl (35.1-43.9); Red Blood Count 1.53 M/mm3 (4.6-6.2); White Blood Count 3.8 K/mm3 (4.4-11.0)
[2022-07-09 17:48] LABS: Differential Indicated SCAN CRITERIA MET
[2022-07-09 17:52] LABS: Anion Gap 11 (5-15); BUN 58 mg/dL (7-18); BUN/Creat Ratio 25.9 RATIO (10-20); Calcium,Total 8.1 mg/dL (8.5-10.1); Chloride 106 mmol/L (98-107); Creatinine, Serum 2.24 mg/dL (0.70-1.30); EST Glomerular Filtration Rate 30 mL/min (>60); Est Glom Filt Rate - Afr Amer 36 mL/min (>60); Estimated Creatinine Clearance 28.03 ml/min; Glucose 180 mg/dL (74-106); Potassium 4.5 mmol/L (3.5-5.1); Sodium Level 136 mmol/L (136-145)
--- NOTE | 2022-07-09 18:17 | RAD_ITS ---
INDICATION: Injury/Pain EXAMINATION/TECHNIQUE: X-RAY - RIGHT XR Foot Min 3 Views 3 VIEWS COMPARISON: None. FINDINGS: SOFT TISSUES: No soft tissue swelling or gas. No radiopaque foreign body. BONES/JOINTS: There is normal bony alignment, mild degenerative change involving the first MTP and the first interphalangeal joint. Mild osteophyte formation is present. Remaining joint spaces are maintained. Minimal plantar spur and anterior osteophytes from the tibial plafond. RAD/Foot min 3 Views IMPRESSION: 1. No evidence of fracture or malalignment involving the RIGHT foot. 2. Degenerative change involving the first MTP and the first interphalangeal joint. Electronically Signed: Gordy Bardales MD at 18:37 EST ,
[2022-07-09 18:22] LABS: Anisocytosis 2+; Hypochromasia 1+; Macrocytosis 2+; Platelet Estimate MOD DEC (ADEQ); Red Cell Morphology N CHROM NORMAL (NORM C&C)
[2022-07-09 18:22] LABS: International Normalized Ratio 1.3; Prothrombin Time (Protime)PT. 16.1 SECONDS (11.7-14.9)
[2022-07-09 18:23] LABS: Partial Thromboplast Time 35.7 Seconds (24.1-36.2)
--- NOTE | 2022-07-09 18:42 | ART_ITS ---
Reason For Study: WOUND Procedure A bilateral lower extremity continuous wave Doppler with analog waveform analysis,segmental pressures,and ankle brachial indexes without exercise. Left Segmental Pressures Left thigh = 118mmHg. Left calf = 84mmHg. Left posterior tibial artery = 79mmHg. Left dorsalis pedis artery = 85mmHg. Left digit = 57 mmHg. The left posterior tibial artery waveforms are triphasic. The left dorsalis pedis waveforms are triphasic. Right Segmental Pressures Right brachial= 104mmHg. Right thigh = 60mmHg. Right calf = 48mmHg. Right posterior tibial artery = 54mmHg. Right dorsalis pedis artery = 34mmHg. The right posterior tibial artery waveforms are monophasic. The right dorsalis pedis waveforms are monophasic. Indices The right resting ankle brachial index is 0.52. The right ankle brachial index by the posterior tibial artery is 0.52. The right ankle brachial index by the dorsalis pedis is 0.33. The left resting ankle brachial index is 0.82. The left ankle brachial index by the posterior tibial artery is 0.76. The left ankle brachial index by the dorsalis pedis is 0.82. The left digital-brachial index is 0.55. VL/Lower Ext Art Exam w/o Exercis Interpretation Summary Right ARTHUR 0.52, severe arterial insufficiency. Doppler/PVR waveforms and segmen afsaneh pressures reveal iloai-saaqz-pswbssts femoral disease. Left ARTHUR 0.82, moderate arterial insufficiency. Doppler/PVR waveforms and segme ntal pressures reveal distal SFA/popliteal disease Unable to assess RT great toe due to bandages/dry gangrene. Ordering Physician: Binh Arndt Referring Physician: Livan Mcfarland Performed By: TIFFANY GARCIA T
--- NOTE | 2022-07-09 18:47 | PCM.CONS.GEN ---
Assessment & Plan Assessment/Plan (1) Dry gangrene: (2) Other specified peripheral vascular diseases: (3) Other hereditary and idiopathic neuropathies: PLAN: Plan Evaluation performed. Reviewed diagnostic data. Reviewed left foot xrays which were obtained today. There is no gas or acute findings noted. The gangrene on the left 1st toe, the 2nd and 3rd toes a slightly dusky - this appears chronic in nature. New vascular studies were ordered and I did speak with Dr. Mendieta from [facility] medicine and vascular surgeon will be consulted. A culture was obtained left 1st toe where is was noted to be an ulceration at the proximal plantar margin of the gangrene. The patient has been started on broad spectrum antibiotics. The 1st toe was painted with betadine and a gauze dressing was applied. Avoid weightbearing left forefoot. Regarding surgical intervention left foot - patient will lose 1st toe however since this is chronic in nature, and not wet, nor patient acutely sick from this, along with patient's other medical problems (anemia) - podiatry will monitor and await vascular surgeon evaluation on healing potential. This was discussed with patient and his family today. Podiatry will continue to follow. Thank you for consultation. HPI Consult Data Date of Consult: 07/09/22 HPI Narrative Reason for Consultation: Left 1st toe is black HPI Narrative: RANULFO NEGRETE, is a 87 M who presents with gangrene of the left 1st toe. He relates toenail felt off, and since then the toe turned black, he relate this has been going on for at least 2 months. He relates to hx of lower extremity vascular disease. He relates to hx of previous vascular intervention in [place]. He relates to hx of having stents, but relates they occluded. He presents today with his daughter, step son and step daughter in law. He relates there is some pain, but does not appear to be significantly painful at this time. He history multiple medical problems, it was noted his hgb is 5 today. He is going to be admitted for further management. He denies fever, chills, nausea or vomiting. He has been started on IV antibiotics. [facility] Medical History Atherosclerosis of coronary artery of [place] heart without angina pectoris Atherosclerosis of [place] artery of both lower extremities with intermittent claudication Basal cell carcinoma of right forearm Bilateral pulmonary embolism (01/2019) Bladder cancer Chemotherapy management, encounter for Diabetes Discoloration of skin Dysuria Encounter for education Essential (primary) hypertension Fall Former smoker Hematuria, gross Hyperlipidemia Injury of back Large B-cell lymphoma Low back pain Lower urinary tract symptoms Lymphoma Obesity Peripheral vascular occlusive disease Prostate disease Recurrent right inguinal hernia Right inguinal hernia Right leg pain Scrotal abscess Secondary pulmonary arterial hypertension Sleep apnea 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 artery Thyromegaly Type 2 diabetes mellitus Venous insufficiency (chronic) (peripheral) Wears dentures Home Medications lisinopril 20 mg tablet 20 mg PO BID Blood pressure 04/05/18 [History Last Taken 04/08/21 06:00] lovastatin 40 mg tablet 40 mg PO QHS CHOLESTEROL 04/05/18 [History Last Taken 04/07/21] metformin 1,000 mg tablet 1,000 mg PO BID DIABETES 04/05/18 [History Last Taken 04/07/21] omega-3 fatty acids-fish oil 340 mg-1,000 mg capsule 1 cap PO BID SUPPLEMENT 04/10/18 [History Last Taken 04/04/21] tamsulosin 0.4 mg capsule 0.4 mg PO QHS URINE FLOW 09/08/18 [History Last Taken 04/07/21] metoprolol tartrate 50 mg tablet 50 mg PO BID blood pressure 09/19/18 [History Last Taken 04/08/21 06:00] cholecalciferol (vitamin D3) 25 mcg (1,000 unit) tablet 25 mcg PO BID supplement 01/24/19 [History Last Taken 04/07/21] lidocaine-prilocaine 2.5 %-2.5 % topical cream 1 applic topical ONCE PRN port access 30 days #30 grams 05/20/21 [Rx Last Taken Unknown] glimepiride 1 mg tablet 2 mg PO DAILY 06/01/21 [History Last Taken Unknown] apixaban 2.5 mg tablet (Eliquis) 2.5 mg PO BID 12/21/21 [History Last Taken 05/17/22] Allergy/AdvReac Type Severity Reaction Status Date / Time No Known Allergies Allergy Verified 07/09/22 14:53 Family History Sister Breast cancer Diabetes Mother Diabetes Brother Heart disease Hypertension Surgical History Femoral-popliteal bypass graft occlusion, right H/O coronary artery bypass surgery (2006) H/O hernia repair History of appendectomy History of bladder surgery (09/2019) History of cataract extraction History of femoral angiogram (11/21/12) History of herniorrhaphy History of right-sided carotid endarterectomy History of tonsillectomy and adenoidectomy History of transurethral destruction of bladder lesion (12/2018) Hx of lymph node biopsy Social History Smoking Status: Former smoker how long ago did patient quit smokin years ago alcohol intake: current alcohol intake frequency: a few times a week substance use type: does not use caffeine: Yes Type: coffee Number of servings: 2 lars/mormon: None seatbelt use: always do you feel safe at home: Yes Physical Exam Const alert, oriented x3 and no apparent distress Constitutional Narrative: Left foot with dry gangrene to the entire 1st toe, there is an open ulceration at the plantar proximal gangrene border down to subcutaneous tissue, there is erythema to the distal forefoot dorsally and some plantarly, there is no fluctuance, no crepitus, no blistering, no visible abscess present; 2nd and 3rd toes are slightly dusky at the tips of the toes, 4th and 5th toes CFT < 3 seconds at this time, DP and PT nonpalpable left foot, there is decreased sensation to the left foot. Lab / Micro Data Result Diagrams: 07/09/22 17:20 07/09/22 17:20 Labs: Laboratory Results - last 24 hr 07/09/22 17:20: WBC 3.8 L, RBC 1.53 L, Hgb 5.0 L*, Hct 16.4 L, MCV 107.2 H, MCH 32.7 H, MCHC 30.5 L, RDW Std Deviation 80.5 H, RDW Coeff of [place]ust[place] 21.7 H, Plt Count 58 L, MPV TNP, Immature Gran % (Auto) 1.300 H, Neut % (Auto) 47.4, Lymph % (Auto) 32.5, [place] % (Auto) 17.2 H, Eos % (Auto) 1.1, Baso % (Auto) 0.5, Absolute Neuts (auto) 1.8 L, Absolute Lymphs (auto) 1.23, Nucleated RBC % 0, Diff Path Review May , Platelet Estimate MOD DEC, RBC Morphology N CHROM, Hypochromasia 1+, Anisocytosis 2+, Macrocytosis 2+ 07/09/22 17:20: Sodium 136, Potassium 4.5, Chloride 106, Carbon Dioxide 19.0 L, Anion Gap 11, BUN 58 H, Creatinine 2.24 H, Estim Creat Clear Calc 28.03, Est GFR (MDRD) Af Amer 36 L, Est GFR (MDRD) Non-Af 30 L, BUN/Creatinine Ratio 25.9 H, Glucose 180 H, Calcium 8.1 L 07/09/22 17:55: PT 16.1 H, INR 1.3, APTT 35.7 07/09/22 17:55: Crossmatch See Detail Radiology Impression Foot X-Ray 07/09/22 18:17 IMPRESSION: 1. No evidence of fracture or malalignment involving the RIGHT foot. 2. Degenerative change involving the first MTP and the first interphalangeal joint. Electronically Signed: Gordy Bardales MD at 18:37 EST ,
[2022-07-09 18:51] LABS: Troponin-I HS 44 pg/mL (3.0-78.0)
[2022-07-09 18:54] LABS: Lactic Acid 2.3 mmol/L (0.4-1.9)
[2022-07-09] MEDS: metroNIDAZOLE 500 MG/100 ML BAG 100 MG IV (19:00)
[2022-07-09 20:18] LABS: M R Staph aureus DNA By PCR Negative (Negative); Probe Check PASS; Staph aureus DNA By PCR NEGATIVE (Negative)
[2022-07-09 20:29] LABS: Erythrocyte Sedimentation Rate 10 mm/hr (0-20)
--- NOTE | 2022-07-09 20:51 | PCM.HP.STD ---
HPI - General General Date of Admission: 07/09/22 Date of Service: 07/09/22 Chief Complaint: Swelling of right foot and blackened right toe HPI Narrative RANULFO NEGRETE, is a 87 M with a significant history of diabetes mellitus; mild dysplastic syndrome; large B-cell lymphoma; bladder cancer status post BCG administration who presents to the emergency department with swelling of his right foot and completely blackened big toe of the right foot. Patient report that his symptoms has been going on for 2 months or more. He reportedly sought medical help because of urging from his and family. Emergency Department doctor reports that patient was sent to the emergency department because Dr. Mcfarland instructed him to do so. Patient was seen at the emergency department by Dr. Arndt and a podiatry who wrapped the patient foots and discussed with patient that Dr. Juares, vascular surgeon will be consulted. Patient was found to be anemic at the emergency department with hemoglobin of 5.0. Emergency plan doctor discussed 1 units of blood and discussed case with Dr. Oshea who was on-call for patient's primary oncologist, Dr. Nash Kunz. Patient reports that he has had some hematuria. He denies any hematemesis or hematochezia. Emergent department doctor reports negative rectal examination; with negative Hemoccult. [facility] Medical History Atherosclerosis of coronary artery of [place] heart without angina pectoris Atherosclerosis of [place] artery of both lower extremities with intermittent claudication Basal cell carcinoma of right forearm Bilateral pulmonary embolism (01/2019) Bladder cancer Chemotherapy management, encounter for Diabetes Discoloration of skin Dysuria Encounter for education Essential (primary) hypertension Fall Former smoker Hematuria, gross Hyperlipidemia Injury of back Large B-cell lymphoma Low back pain Lower urinary tract symptoms Lymphoma Obesity Peripheral vascular occlusive disease Prostate disease Recurrent right inguinal hernia Right inguinal hernia Right leg pain Scrotal abscess Secondary pulmonary arterial hypertension Sleep apnea 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 artery Thyromegaly Type 2 diabetes mellitus Venous insufficiency (chronic) (peripheral) Wears dentures Home Medications lisinopril 20 mg tablet 20 mg PO BID Blood pressure 04/05/18 [History Last Taken 07/08/22] lovastatin 40 mg tablet 40 mg PO QHS CHOLESTEROL 04/05/18 [History Last Taken 07/08/22] metformin 1,000 mg tablet 1,000 mg PO BID DIABETES 04/05/18 [History Last Taken 07/08/22] omega-3 fatty acids-fish oil 340 mg-1,000 mg capsule 1 cap PO BID SUPPLEMENT 04/10/18 [History Last Taken 07/09/22] tamsulosin 0.4 mg capsule 0.4 mg PO QHS URINE FLOW 09/08/18 [History Last Taken 07/08/22] metoprolol tartrate 50 mg tablet 50 mg PO BID blood pressure 09/19/18 [History Last Taken 07/09/22] cholecalciferol (vitamin D3) 25 mcg (1,000 unit) tablet 25 mcg PO BID supplement 01/24/19 [History Last Taken 07/08/22] lidocaine-prilocaine 2.5 %-2.5 % topical cream 1 applic topical ONCE PRN port access 30 days #30 grams 05/20/21 [Rx Last Taken Unknown] glimepiride 1 mg tablet 2 mg PO DAILY dm 06/01/21 [History Last Taken 07/09/22] apixaban 2.5 mg tablet (Eliquis) 2.5 mg PO BID blood thinner 12/21/21 [History Last Taken 1 Week Ago ~07/02/22] lenalidomide 10 mg capsule (Revlimid) 10 mg PO DAILY Check with primary doctor 07/09/22 [History Last Taken 07/08/22] Allergy/AdvReac Type Severity Reaction Status Date / Time No Known Allergies Allergy Verified 07/09/22 14:53 Family History Sister Breast cancer Diabetes Mother Diabetes Brother Heart disease Hypertension Surgical History Femoral-popliteal bypass graft occlusion, right H/O coronary artery bypass surgery (2006) H/O hernia repair History of appendectomy History of bladder surgery (09/2019) History of cataract extraction History of femoral angiogram (11/21/12) History of herniorrhaphy History of right-sided carotid endarterectomy History of tonsillectomy and adenoidectomy History of transurethral destruction of bladder lesion (12/2018) Hx of lymph node biopsy Social History Smoking Status: Former smoker how long ago did patient quit smokin years ago alcohol intake: current alcohol intake frequency: a few times a week substance use type: does not use caffeine: Yes Type: coffee Number of servings: 2 lars/latter-day: None seatbelt use: always do you feel safe at home: Yes ROS ROS Narrative Pertinent positives and pertinent negatives as noted in HPI. All other systems were reviewed and are negative Vital Signs Vital Signs Vital Signs: 07/09/22 14:53 07/09/22 19:12 07/09/22 20:13 Temperature 97.6 F L 96.9 F L 98.2 F Temperature Source Temporal Temporal Temporal Pulse Rate 78 80 78 Respiratory Rate 16 18 16 Blood Pressure 116/44 L 117/30 L Blood Pressure Mean 68 59 Blood Pressure Source Monitor Blood Pressure Position Supine Blood Pressure Location Left Arm Pulse Ox 96 97 93 Oxygen Delivery Method Room Air Room Air Room Air 07/09/22 20:16 07/09/22 20:28 Temperature 98.2 F 97.6 F L Temperature Source Temporal Temporal Pulse Rate 87 81 Respiratory Rate 16 16 Blood Pressure 117/30 L 121/38 H Blood Pressure Mean 59 65 Blood Pressure Source Monitor Blood Pressure Position Supine Blood Pressure Location Left Arm Pulse Ox 92 96 Oxygen Delivery Method Room Air Weight Weight: 99.79 kg Body Mass Index (BMI) 28.2 Physical Exam Narrative Physical exam: General: Well-nourished, well-developed. Head: Normocephalic, atraumatic, no tenderness Eyes: Vision is grossly intact. EOMI ENT, no trauma, moist mucous membranes, no rhinorrhea Neck: Nontender, No thyromegaly. CVS: Regular rate and rhythm. S1-S2 present. No murmur, gallop or rub. Respiratory : clear to auscultation bilaterally, chest wall nontender, no wheezing Abdomen: Soft, nontender, nondistended, normal bowel sounds, no masses : Deferred Back: Nontender, no CVA tenderness. Extremities: Right foot dressed by podiatry. Left foot with no swelling. Skin: Normal color, no trauma, abrasions Neuro: Alert, oriented, cranial nerves II through XII grossly intact. Psychiatry: Normal mood. Normal affect. Not depressed. Not anxious. Results Lab / Micro Data Result Diagrams: 07/09/22 17:20 07/09/22 17:20 Labs: Laboratory Results - last 24 hr 07/09/22 17:20: WBC 3.8 L, RBC 1.53 L, Hgb 5.0 L*, Hct 16.4 L, MCV 107.2 H, MCH 32.7 H, MCHC 30.5 L, RDW Std Deviation 80.5 H, RDW Coeff of Agust[place] 21.7 H, Plt Count 58 L, MPV TNP, Immature Gran % (Auto) 1.300 H, Neut % (Auto) 47.4, Lymph % (Auto) 32.5, [place] % (Auto) 17.2 H, Eos % (Auto) 1.1, Baso % (Auto) 0.5, Absolute Neuts (auto) 1.8 L, Absolute Lymphs (auto) 1.23, Nucleated RBC % 0, Diff Path Review May , Platelet Estimate MOD DEC, RBC Morphology N CHROM, Hypochromasia 1+, Anisocytosis 2+, Macrocytosis 2+ 07/09/22 17:20: Sodium 136, Potassium 4.5, Chloride 106, Carbon Dioxide 19.0 L, Anion Gap 11, BUN 58 H, Creatinine 2.24 H, Estim Creat Clear Calc 28.03, Est GFR (MDRD) Af Amer 36 L, Est GFR (MDRD) Non-Af 30 L, BUN/Creatinine Ratio 25.9 H, Glucose 180 H, Calcium 8.1 L 07/09/22 17:20: Troponin I High Sens 44 07/09/22 17:20: ESR 10 07/09/22 17:20: C-React Prot Ext Range 89.80 H 07/09/22 17:55: PT 16.1 H, INR 1.3, APTT 35.7 07/09/22 17:55: Lactic Acid 2.3 H* 07/09/22 17:55: Blood Type O NEGATIVE, Antibody Screen NEGATIVE 07/09/22 17:55: Crossmatch See Detail 07/09/22 18:47: S.aureus Protein A PCR NEGATIVE, MRSA (PCR) Negative Micro: Microbiology 07/09/22 18:47 Stool Stool Occult Blood (MARILY) - Final Radiology Impression Foot X-Ray 07/09/22 18:17 IMPRESSION: 1. No evidence of fracture or malalignment involving the RIGHT foot. 2. Degenerative change involving the first MTP and the first interphalangeal joint. Electronically Signed: Gordy Bardales MD at 18:37 EST , Assessment & Plan Assessment/Plan (1) Dry gangrene: (2) Abnormal EKG: (3) Anemia: PLAN: Plan Dry gangrene Received vancomycin, Unasyn and Flagyl emergency department. Unasyn ordered. Vascular surgery consult. Podiatry consulted and following. Acute on chronic anemia Hemoglobin on presentation was 5.0. Review of labs shows chronic anemia. 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 Acute component unclear. On presentation 1 units of packed red blood cells blood ordered to transfuse at the ED. Trend H&H. When hemoglobin is stable and on discharge consider referral to urology Dr. Phillip; the patient is familiar with; and GI. He reports that his last colonoscopy was many years ago without provider exact number of years. History of PE Reportedly he ran out off his Eliquis about a week and a half ago. We will hold off Eliquis until evaluated by vascular surgery. Unable to start heparin drip at this time secondary to thrombocytopenia. Thrombocytopenia PLT of 58. Trend CBC Diabetes mellitus Patient with hyperglycemia on presentation Glimepiride continued. Metformin held. Monitor Accu-Cheks Correction scale insulin ordered. ADAM Creatinine presentation was 2.24. Review of labs shows creatinine baseline around 1.5-1.75. BUN is 58. BUN/CR is 25.9 Trend BMP. Avoid nephrotoxins. Home lisinopril will be held. Gentle IV hydration. Lactic acidosis Lactic acid of 2.3. Trend. Sepsis ruled out. Abnormal EKG. ST depressions in anterior and lateral leads leads which is new compared to EKG on 07/24/2020. Troponin is normal. No chest pain. Hypertension Stable Metoprolol continued. Lisinopril held secondary ADAM. Of lisinopril held as needed hydralazine IV ordered. Trend blood pressure and adjust blood pressure medications. Heart failure with preserved ejection fraction Echocardiogram on 01/10/2019 showed EF of 55%. Stage II diastolic function. Myocardial perfusion test on 11/17/2020 showed ejection fraction of 71%. Stable. Cautious use of fluids. DVT prophylaxis: SCDs ordered. Charges/Coding Visit Charges Inpatient E&M: 62041 Init Hosp L3
[2022-07-09 22:03] LABS: Reflex Lactate? Y
--- NOTE | 2022-07-09 22:15 | EX.EMERGENCY ---
EMERGENCY DOCUMENTATION INITIATED: Date: 06/30/22 Time: [address]
[2022-07-09] MEDS: Metoprolol Tartrate 50 MG Tablet PO (23:15)
[2022-07-09] MEDS: Tamsulosin HCl 0.4 MG Capsule PO (23:15)
[2022-07-09] MEDS: Atorvastatin Calcium 10 MG Tablet PO (23:15)
[2022-07-09] MEDS: Omega-3 Acid Ethyl Esters 1 GM Capsule PO (23:15)
[2022-07-09 23:18] LABS: Lactic Acid 1.4 mmol/L (0.4-1.9)
[2022-07-09] MEDS: 0.9% Saline Lock 10 ML Syringe IV (23:18)
[2022-07-10] VITALS (22 sets, daily range): BP systolic 90–137; BP diastolic 42–71; PULSE 74–95; RESP 18; TEMP 36.4–37.3; O2SAT 91–100
[2022-07-10] MEDS: 0.9% Normal Saline 1,000 ML 75 ML IV ×2 (00:36→15:35)
[2022-07-10] MEDS: 0.9% Saline Lock 10 ML Syringe IV (00:37)
[2022-07-10 00:42] LABS: Bedside Glucose 129 mg/dL (74-106)
[2022-07-10 00:48] LABS: Hematocrit 17.7 % (40-54); POSITIVE COUNT YES
[2022-07-10 00:50] LABS: Hemoglobin 5.6 g/dL (13.0-16.5)
[2022-07-10 07:01] LABS: Bedside Glucose 149 mg/dL (74-106)
--- NOTE | 2022-07-10 07:04 | CON.PCM.SX_ITS ---
Assessment & Plan Assessment/Plan (1) Atherosclerosis of [place] arteries of extremities with gangrene, right leg: PLAN: -no recent ARTHUR, but known sfa/popliteal occlusion and most recent ARTHUR 0.5 -given gangrene and known PAD, will need some form of revascularization in order to attempt to save foot -with prior anatomy demonstrated on angio he would most likely need a fem- peroneal bypass (cadaver would be likely conduit) -will start with PVR to determine new baseline objective perfusion, and likely angio after ADAM improves; will utilize CO2 in effort to minimize contrast -will likely not attempt percutaneous intervention given extent of occlusion and his CKD -cardiac optimization/stratification -also appreciate input from his oncologist regarding anemia/thrombocytopenia -definitive plans/timing based on hgb/plt trends as well as cr -ok to resume eliquis from my perspective, will give adequate time to stop prior to any planned interventions HPI Consult Data Date of Consult: 07/10/22 HPI Narrative HPI Narrative: RANULFO NEGRETE, is a 87 M who presents with right lower extremity digit gangrene which has been present for about 2 months. Has been getting worse over this period of time, no known inciting injury. Here now in part due to it worsening but also his family urged him to have it looked into. No prior similar wounds, no prior amputations. Does have extensive vascular history with 3 bypasses and a peripheral [place] Most recently in Jul 2020 he had a diagnostic angiogram by Dr. Palomino but no intervention or bypass. The symptoms that prompted the angiogram gradually improved on their own at that time. Denies purulent drainage/F/C. He has been having scant hematuria and some dark stools, though hemoccult was negative in ED. He is diabetic, does not know what his last A1c was and no recent in system. Also medical history significant for bladder cancer and lymphoma. Upon admission, in addition to hgb of 5 he is also thrombocytopenic with plt in 50s. On Eliquis for a.fib, remote history of DVT. [facility] Medical History Atherosclerosis of coronary artery of [place] heart without angina pectoris Atherosclerosis of [place] artery of both lower extremities with intermittent claudication Basal cell carcinoma of right forearm Bilateral pulmonary embolism (01/2019) Bladder cancer Chemotherapy management, encounter for Diabetes Discoloration of skin Dysuria Encounter for education Essential (primary) hypertension Fall Former smoker Hematuria, gross Hyperlipidemia Injury of back Large B-cell lymphoma Low back pain Lower urinary tract symptoms Lymphoma Obesity Peripheral vascular occlusive disease Prostate disease Recurrent right inguinal hernia Right inguinal hernia Right leg pain Scrotal abscess Secondary pulmonary arterial hypertension Sleep apnea 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 artery Thyromegaly Type 2 diabetes mellitus Venous insufficiency (chronic) (peripheral) Wears dentures Home Medications lisinopril 20 mg tablet 20 mg PO BID Blood pressure 04/05/18 [History Last Taken 07/08/22] lovastatin 40 mg tablet 40 mg PO QHS CHOLESTEROL 04/05/18 [History Last Taken 07/08/22] metformin 1,000 mg tablet 1,000 mg PO BID DIABETES 04/05/18 [History Last Taken 07/08/22] omega-3 fatty acids-fish oil 340 mg-1,000 mg capsule 1 cap PO BID SUPPLEMENT 04/10/18 [History Last Taken 07/09/22] tamsulosin 0.4 mg capsule 0.4 mg PO QHS URINE FLOW 09/08/18 [History Last Taken 07/08/22] metoprolol tartrate 50 mg tablet 50 mg PO BID blood pressure 09/19/18 [History Last Taken 07/09/22] cholecalciferol (vitamin D3) 25 mcg (1,000 unit) tablet 25 mcg PO BID supplement 01/24/19 [History Last Taken 07/08/22] lidocaine-prilocaine 2.5 %-2.5 % topical cream 1 applic topical ONCE PRN port access 30 days #30 grams 05/20/21 [Rx Last Taken Unknown] glimepiride 1 mg tablet 2 mg PO DAILY dm 06/01/21 [History Last Taken 07/09/22] apixaban 2.5 mg tablet (Eliquis) 2.5 mg PO BID blood thinner 12/21/21 [History Last Taken 1 Week Ago ~07/02/22] lenalidomide 10 mg capsule (Revlimid) 10 mg PO DAILY Check with primary doctor 07/09/22 [History Last Taken 07/08/22] Allergy/AdvReac Type Severity Reaction Status Date / Time No Known Allergies Allergy Verified 07/09/22 14:53 Family History Sister Breast cancer Diabetes Mother Diabetes Brother Heart disease Hypertension Surgical History Femoral-popliteal bypass graft occlusion, right H/O coronary artery bypass surgery (2006) H/O hernia repair History of appendectomy History of bladder surgery (09/2019) History of cataract extraction History of femoral angiogram (11/21/12) History of herniorrhaphy History of right-sided carotid endarterectomy History of tonsillectomy and adenoidectomy History of transurethral destruction of bladder lesion (12/2018) Hx of lymph node biopsy Social History Smoking Status: Former smoker how long ago did patient quit smokin years ago alcohol intake: current alcohol intake frequency: a few times a week substance use type: does not use caffeine: Yes Type: coffee Number of servings: 2 lars/caodaism: None seatbelt use: always do you feel safe at home: Yes ROS Constitutional Constitutional: Denies chills, fever(s), frequent falls, lethargy or weakness Eyes Eyes: Denies blind spots, change in vision or loss of vision ENT HEENT: Denies bleeding gums Cardiovascular Cardiovascular: Reports bluish discoloration of hand/feet, cyanosis, dyspnea on exertion, irregular heart rhythm and pedal edema; Denies abdominal pain, chest pain with activity, claudication, erythema on extremities, leg ulcers, numbness in extremities or weakness in extremities Respiratory/Chest Respiratory/Chest: Denies cough, excessive phlegm production, shortness of breath at rest, shortness of breath with exertion or wheezing Gastrointestinal Gastrointestinal: Reports melena; Denies anorexia, constipation, diarrhea or rectal bleeding Genitourinary Genitourinary: Reports hematuria; Denies dysuria Musculoskeletal Musculoskeletal: Denies abnormal gait Integumentary Integumentary: Reports non-healing lesions, wounds and other Details: ; Denies erythema Neurologic Neurologic: Denies abnormal speech, focal weakness, headache(s), loss of vision, numbness, paresthesias or sensory deficit Hematologic/Lymphatic Hematologic/Lymphatic: Reports anemia, easy bleeding and easy bruising Physical Exam Const alert, oriented x3, no apparent distress and healthy appearing General Appearance: cooperative; Negative for combative or lethargic Orientation / Consciousness: awake Exam Limitations: no limitations HEENT Head and Scalp: normocephalic and atraumatic Eyes EOMs intact bilaterally General Eye: normal appearance of both eyes Neck full ROM, thyroid normal and No no carotid bruits General: trachea midline; Negative for tenderness Thyroid: thyroid normal Resp normal respiratory effort, no use of accessory muscles and clear to auscultation bilaterally Effort and Inspection: Negative for labored, stridor or audible wheezes Cardio regular rate, regular rhythm and no murmurs Peripheral Pulses: brachial pulses present, radial pulses present and femoral pulses present; Negative for popliteal pulses present, posterior tibial pulses present or dorsalis pedis pulses present GI non-tender and non-distended; Negative for hepatosplenomegaly Back/Spine Cervical Spine: cervical ROM normal Extremity full ROM; Negative for normal capillary refill Skin no rashes or lesions noted Skin Narrative: right foot dressing placed in ED intact, no drainage/foul odor Neuro oriented x3, CN's II-XII intact bilaterally, no focal motor deficits and no sensory deficits noted Psych thought process normal, cooperative, affect normal, speech normal and activity/motor behavior normal Lab / Micro Data Result Diagrams: 07/10/22 00:35 07/09/22 17:20 Labs: Laboratory Results - last 24 hr 07/09/22 17:20: WBC 3.8 L, RBC 1.53 L, Hgb 5.0 L*, Hct 16.4 L, MCV 107.2 H, MCH 32.7 H, MCHC 30.5 L, RDW Std Deviation 80.5 H, RDW Coeff of Agustina 21.7 H, Plt Count 58 L, MPV TNP, Immature Gran % (Auto) 1.300 H, Neut % (Auto) 47.4, Lymph % (Auto) 32.5, [place] % (Auto) 17.2 H, Eos % (Auto) 1.1, Baso % (Auto) 0.5, Absolute Neuts (auto) 1.8 L, Absolute Lymphs (auto) 1.23, Nucleated RBC % 0, Diff Path Review May foll, Platelet Estimate MOD DEC, RBC Morphology N CHROM, Hypochromasia 1+, Anisocytosis 2+, Macrocytosis 2+ 07/09/22 17:20: Sodium 136, Potassium 4.5, Chloride 106, Carbon Dioxide 19.0 L, Anion Gap 11, BUN 58 H, Creatinine 2.24 H, Estim Creat Clear Calc 28.03, Est GFR (MDRD) Af Amer 36 L, Est GFR (MDRD) Non-Af 30 L, BUN/Creatinine Ratio 25.9 H, Glucose 180 H, Calcium 8.1 L 07/09/22 17:20: Troponin I High Sens 44 07/09/22 17:20: ESR 10 07/09/22 17:20: C-React Prot Ext Range 89.80 H 07/09/22 17:55: PT 16.1 H, INR 1.3, APTT 35.7 07/09/22 17:55: Lactic Acid 2.3 H* 07/09/22 17:55: Blood Type O NEGATIVE, Antibody Screen NEGATIVE 07/09/22 17:55: Crossmatch See Detail 07/09/22 17:55: Crossmatch See Detail 07/09/22 18:47: S.aureus Protein A PCR NEGATIVE, MRSA (PCR) Negative 07/09/22 22:40: Lactic Acid 1.4 07/09/22 22:48: POC Glucose 129 H 07/10/22 00:35: Hgb 5.6 L*, Hct 17.7 L 07/10/22 06:33: POC Glucose 149 H Micro: Microbiology 07/09/22 18:47 Stool Stool Occult Blood (MARILY) - Final Radiology Impression Foot X-Ray 07/09/22 18:17 IMPRESSION: 1. No evidence of fracture or malalignment involving the RIGHT foot. 2. Degenerative change involving the first MTP and the first interphalangeal joint. Electronically Signed: Gordy Bardales MD at 18:37 EST , Charges/Coding Visit Charges Inpatient E&M: 79176 Init Hosp L3
[2022-07-10] MEDS: Glimepiride 2 MG Tablet PO (08:37)
--- NOTE | 2022-07-10 08:51 | PN.HOSP_ITS ---
Subjective Subjective Patient states that his right great toe has been black for several months and came in at the behest of his . States he has black stools but does take iron. Objective Data Objective Data Vital Signs: Vital Signs Temp Pulse Resp BP Pulse Ox O2 Del Method O2 Flow Rate 36.7 C 87 18 97/48 L 91 Nasal Cannula 3 07/10/22 06:37 07/10/22 06:37 07/10/22 06:37 07/10/22 06:37 07/10/22 07:45 07/10/22 07:45 07/10/22 07:45 Oxygen Flow Rate (L/min) 3 Oxygen Delivery Method Nasal Cannula Weight: 98.1 kg Body Mass Index (BMI) 27.7 Intake & Output: Intake and Output for Last 24 Hours 07/08/22 07/09/22 07/10/22 23:59 23:59 23:59 Intake Total 1142 / 1142 400 / 400 Balance 1142 / 1142 400 / 400 Lab / Micro Data Result Diagrams: 07/10/22 15:00 07/10/22 08:30 Labs: Laboratory Results - last 24 hr 07/09/22 17:20: WBC 3.8 L, RBC 1.53 L, Hgb 5.0 L*, Hct 16.4 L, MCV 107.2 H, MCH 32.7 H, MCHC 30.5 L, RDW Std Deviation 80.5 H, RDW Coeff of Agustina 21.7 H, Plt Count 58 L, MPV TNP, Immature Gran % (Auto) 1.300 H, Neut % (Auto) 47.4, Lymph % (Auto) 32.5, [place] % (Auto) 17.2 H, Eos % (Auto) 1.1, Baso % (Auto) 0.5, Absolute Neuts (auto) 1.8 L, Absolute Lymphs (auto) 1.23, Nucleated RBC % 0, Diff Path Review May yolanda, Platelet Estimate MOD DEC, RBC Morphology N CHROM, Hypochromasia 1+, Anisocytosis 2+, Macrocytosis 2+ 07/09/22 17:20: Sodium 136, Potassium 4.5, Chloride 106, Carbon Dioxide 19.0 L, Anion Gap 11, BUN 58 H, Creatinine 2.24 H, Estim Creat Clear Calc 28.03, Est GFR (MDRD) Af Amer 36 L, Est GFR (MDRD) Non-Af 30 L, BUN/Creatinine Ratio 25.9 H, Glucose 180 H, Calcium 8.1 L 07/09/22 17:20: Troponin I High Sens 44 07/09/22 17:20: ESR 10 07/09/22 17:20: C-React Prot Ext Range 89.80 H 07/09/22 17:55: PT 16.1 H, INR 1.3, APTT 35.7 07/09/22 17:55: Lactic Acid 2.3 H* 07/09/22 17:55: Blood Type O NEGATIVE, Antibody Screen NEGATIVE 07/09/22 17:55: Crossmatch See Detail 07/09/22 17:55: Crossmatch See Detail 07/09/22 18:47: S.aureus Protein A PCR NEGATIVE, MRSA (PCR) Negative 07/09/22 22:40: Lactic Acid 1.4 07/09/22 22:48: POC Glucose 129 H 07/10/22 00:35: Hgb 5.6 L*, Hct 17.7 L 07/10/22 06:33: POC Glucose 149 H Micro: Microbiology 07/09/22 18:47 Stool Stool Occult Blood (MARILY) - Final Radiography Diagnostic Testing: Radiology Impression Foot X-Ray 07/09/22 18:17 IMPRESSION: 1. No evidence of fracture or malalignment involving the RIGHT foot. 2. Degenerative change involving the first MTP and the first interphalangeal joint. 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 Does have dusky toes 2 through 3 with also forefoot cyanosis. Diminished peripheral pulses. Neuro oriented x3 Assessment & Plan Assessment/Plan (1) Dry gangrene: PLAN: Dry gangrene Received vancomycin, Unasyn and Flagyl emergency department. Unasyn ordered. Vascular surgery consult. Podiatry consulted and following. Patient will need eventual amputation but will need revascularization either coinciding or beforehand. (2) Anemia: PLAN: Acute on chronic anemia Hemoglobin on presentation was 5.0. Review of labs shows chronic anemia. 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 Acute component unclear. On presentation 1 units of packed red blood cells blood ordered to transfuse at the ED. Trend H&H. When hemoglobin is stable and on discharge consider referral to urology Dr. Phillip; the patient is familiar with; and GI. He reports that his last colonoscopy was many years ago without provider exact number of years. Patient transfused total of 3 units thus far. Continue to monitor his H&H. Patient does have dark stools but notes that he takes iron. Concern is for possible GI blood loss. At least a component of his anemia is due to myelodysplastic syndrome but will need to rule out GI loss 2. Though I cannot rule out the possibility of GI need to be involved if patient is heme positive. Patient had a bone marrow biopsy performed on May 18 that showed mildly hypercellular marrow. Patient saw Dr. Kunz on 05/25/22 and the thought about management with growth factors. Consult oncology to see if those catheters would be indicated at this time. (3) Atherosclerosis of [place] arteries of extremities with gangrene, right leg: PLAN: L EAS and arterial duplex ordered Vascular surgery on consult Timing of intervention is to be determined based on other patients medical comorbidities including anemia and thrombocytopenia. (4) Thrombocytopenia: PLAN: Chronic but lower than has been in the past. Continue to monitor. No need to transfuse at this time (5) VTE (venous thromboembolism): PLAN: Apixaban currently on hold and patient had ran out a week and a half prior. Hold off on account of his anemia. (6) ADAM (acute kidney injury): PLAN: Creatinine 2.24 upon admission, baseline creatinine is around 1.72. Lisinopril held Patient did receive IV fluids. Follow-up BMP. PLAN: Plan Diabetes mellitus Patient with hyperglycemia on presentation Glimepiride continued. Metformin held. Monitor Accu-Cheks Correction scale insulin ordered. ADAM Creatinine presentation was 2.24. Review of labs shows creatinine baseline around 1.5-1.75. BUN is 58. BUN/CR is 25.9 Trend BMP. Avoid nephrotoxins. Home lisinopril will be held. Gentle IV hydration. Lactic acidosis Lactic acid of 2.3. Trend. Sepsis ruled out. Abnormal EKG. ST depressions in anterior and lateral leads leads which is new compared to EKG on 07/24/2020. Troponin is normal. No chest pain. Hypertension Stable Metoprolol continued. Lisinopril held secondary ADAM. Of lisinopril held as needed hydralazine IV ordered. Trend blood pressure and adjust blood pressure medications. Heart failure with preserved ejection fraction Echocardiogram on 01/10/2019 showed EF of 55%. Stage II diastolic function. Myocardial perfusion test on 11/17/2020 showed ejection fraction of 71%. Stable. Cautious use of fluids. DVT prophylaxis: SCDs ordered. Discussed with the patient's stepson and daughter. Prognosis guarded. Charges/Coding Visit Charges Inpatient E&M: 17157 [facility] Hosp L3
[2022-07-10 08:58] LABS: Absolute Lymphocyte Count 1.19 X10^3/uL (0.83-4.51); Absolute Neutrophil Count 1.7 X10^3/uL (2.0-7.7); Basophil# 0.02 X10^3/uL; Basophil% 0.6 % (0-1); Eosinophil# 0.03 X10^3/uL; Eosinophils% 0.9 % (0-5); Hematocrit 18.6 % (40-54); Hemoglobin 6.1 g/dL (13.0-16.5); Lymphocyte # 1.19 X10^3/ul (0.83-4.51); Lymphocyte % 34.4 % (19-41); Mean Corp Hgb Conc 32.8 g/dL (32-36); Mean Corpuscular Hgb 32.8 pg (27.0-32.0); Monocyte% 14.5 % (0-10); NRBC Flagged by Analyzer 0 % (0-5); Neutrophil # 1.66 X10^3/uL (2.7-7.7); Neutrophil % 47.9 % (47-70); POSITIVE COUNT YES; POSITIVE MORPHOLOGY YES; Platelet Count 57 K/mm3 (150-450); RBC Distribution Width CV 21.2 % (11.6-14.6); RBC Distribution Width SD 74.7 fl (35.1-43.9); Red Blood Count 1.86 M/mm3 (4.6-6.2); White Blood Count 3.5 K/mm3 (4.4-11.0)
[2022-07-10 09:00] LABS: ALB/GLOB Ratio 0.8 RATIO (0.9-2.4); AST(SGOT) 9 U/L (15-37); Alanine Aminotransfer ALT/SGPT 15 U/L (16-61); Albumin, Serum 2.2 g/dL (3.2-5.0); Alkaline Phosphatase 80 U/L (45-117); Anion Gap 6 (5-15); BUN 51 mg/dL (7-18); BUN/Creat Ratio 23.9 RATIO (10-20); Calcium,Total 7.9 mg/dL (8.5-10.1); Chloride 109 mmol/L (98-107); Creatinine, Serum 2.13 mg/dL (0.70-1.30); EST Glomerular Filtration Rate 32 mL/min (>60); Est Glom Filt Rate - Afr Amer 38 mL/min (>60); Estimated Creatinine Clearance 29.48 ml/min; Globulin 2.6 g/dL (2.2-4.2); Glucose 156 mg/dL (74-106); Potassium 4.6 mmol/L (3.5-5.1); Protein, Total 4.8 g/dL (6.4-8.2); Sodium Level 136 mmol/L (136-145)
[2022-07-10 09:04] LABS: Hemoglobin A1c 6.5 % (3.8-5.6)
[2022-07-10 09:05] LABS: Differential Indicated SCAN CRITERIA MET
[2022-07-10 09:21] LABS: Anisocytosis 2+
[2022-07-10 09:22] LABS: Crenated RBC RARE; Platelet Estimate MKD DEC (ADEQ); Schistocytes RARE
[2022-07-10] MEDS: Omega-3 Acid Ethyl Esters 1 GM Capsule PO (09:43)
[2022-07-10] MEDS: Cholecalciferol (VIT D3) 25 MCG TABLET (1,000 UNITS) PO (09:43)
--- NOTE | 2022-07-10 10:03 | PCM.PROGNOTE ---
Subjective Subjective Patient was seen today for follow up on right foot. He is resting in bed. No new pedal complaints. No fever, chills, nausea or vomiting at this time. Objective Data Objective Data Vital Signs: Vital Signs Temp Pulse Resp BP Pulse Ox O2 Del Method O2 Flow Rate 98.0 F 85 18 104/44 L 91 Nasal Cannula 2 07/10/22 06:37 07/10/22 09:45 07/10/22 06:37 07/10/22 09:45 07/10/22 07:45 07/10/22 08:30 07/10/22 08:30 Oxygen Flow Rate (L/min) 2 Oxygen Delivery Method Nasal Cannula Weight: 98.1 kg Body Mass Index (BMI) 27.7 Intake & Output: Intake and Output for Last 24 Hours 07/08/22 07/09/22 07/10/22 23:59 23:59 23:59 Intake Total 1142 / 1142 400 / 400 Balance 1142 / 1142 400 / 400 Lab / Micro Data Result Diagrams: 07/10/22 08:30 07/10/22 08:30 Labs: Laboratory Results - last 24 hr 07/09/22 17:20: WBC 3.8 L, RBC 1.53 L, Hgb 5.0 L*, Hct 16.4 L, MCV 107.2 H, MCH 32.7 H, MCHC 30.5 L, RDW Std Deviation 80.5 H, RDW Coeff of Agustina 21.7 H, Plt Count 58 L, MPV TNP, Immature Gran % (Auto) 1.300 H, Neut % (Auto) 47.4, Lymph % (Auto) 32.5, [place] % (Auto) 17.2 H, Eos % (Auto) 1.1, Baso % (Auto) 0.5, Absolute Neuts (auto) 1.8 L, Absolute Lymphs (auto) 1.23, Nucleated RBC % 0, Diff Path Review May foll, Platelet Estimate MOD DEC, RBC Morphology N CHROM, Hypochromasia 1+, Anisocytosis 2+, Macrocytosis 2+ 07/09/22 17:20: Sodium 136, Potassium 4.5, Chloride 106, Carbon Dioxide 19.0 L, Anion Gap 11, BUN 58 H, Creatinine 2.24 H, Estim Creat Clear Calc 28.03, Est GFR (MDRD) Af Amer 36 L, Est GFR (MDRD) Non-Af 30 L, BUN/Creatinine Ratio 25.9 H, Glucose 180 H, Calcium 8.1 L 07/09/22 17:20: Troponin I High Sens 44 07/09/22 17:20: ESR 10 07/09/22 17:20: C-React Prot Ext Range 89.80 H 07/09/22 17:55: PT 16.1 H, INR 1.3, APTT 35.7 07/09/22 17:55: Lactic Acid 2.3 H* 07/09/22 17:55: Blood Type O NEGATIVE, Antibody Screen NEGATIVE 07/09/22 17:55: Crossmatch See Detail 07/09/22 17:55: Crossmatch See Detail 07/09/22 18:47: S.aureus Protein A PCR NEGATIVE, MRSA (PCR) Negative 07/09/22 22:40: Lactic Acid 1.4 07/09/22 22:48: POC Glucose 129 H 07/10/22 00:35: Hgb 5.6 L*, Hct 17.7 L 07/10/22 06:33: POC Glucose 149 H 07/10/22 08:30: WBC 3.5 L, RBC 1.86 L, Hgb 6.1 L, Hct 18.6 L, MCV 100.0 H D, MCH 32.8 H, MCHC 32.8 D, RDW Std Deviation 74.7 H, RDW Coeff of Agustina 21.2 H, Plt Count 57 L, Immature Gran % (Auto) 1.700 H, Neut % (Auto) 47.9, Lymph % (Auto) 34.4, [place] % (Auto) 14.5 H, Eos % (Auto) 0.9, Baso % (Auto) 0.6, Absolute Neuts (auto) 1.7 L, Absolute Lymphs (auto) 1.19, Nucleated RBC % 0, Platelet Estimate MKD DEC, Anisocytosis 2+, Crenated Cell RARE, Schistocytes RARE 07/10/22 08:30: Sodium 136, Potassium 4.6, Chloride 109 H, Carbon Dioxide 21.0, Anion Gap 6, BUN 51 H, Creatinine 2.13 H, Estim Creat Clear Calc 29.48, Est GFR (MDRD) Af Amer 38 L, Est GFR (MDRD) Non-Af 32 L, BUN/Creatinine Ratio 23.9 H, Glucose 156 H, Calcium 7.9 L, Total Bilirubin 1.10 H, AST 9 L, ALT 15 L, Alkaline Phosphatase 80, Total Protein 4.8 L, Albumin 2.2 L, Globulin 2.6, Albumin/Globulin Ratio 0.8 L 07/10/22 08:30: Hemoglobin A1c 6.5 H Micro: Microbiology 07/09/22 18:47 Wound - Left Foot Wound Culture - Preliminary 07/09/22 18:47 Stool Stool Occult Blood (MARILY) - Final Radiography Diagnostic Testing: Radiology Impression Foot X-Ray 07/09/22 18:17 IMPRESSION: 1. No evidence of fracture or malalignment involving the RIGHT foot. 2. Degenerative change involving the first MTP and the first interphalangeal joint. Electronically Signed: Gordy Bardales MD at 18:37 EST Reading Location ID and State: [address] [place] [address] Tel , Service support , Physical Exam Const alert, oriented x3 and no apparent distress Constitutional Narrative: Left foot with dry gangrene to the entire 1st toe, there is an open ulceration at the plantar proximal gangrene border down to subcutaneous tissue, there is erythema to the distal forefoot dorsally and some plantarly, there is no fluctuance, no crepitus, no blistering, no visible abscess present; 2nd and 3rd toes are slightly dusky at the tips of the toes, 4th and 5th toes CFT < 3 seconds at this time, DP and PT nonpalpable left foot, there is decreased sensation to the left foot. Assessment & Plan Assessment/Plan (1) Dry gangrene: (2) Other specified peripheral vascular diseases: (3) Other hereditary and idiopathic neuropathies: PLAN: Plan Evaluation performed. Reviewed diagnostic data. Right foot stable, no acute worsening. A culture has been obtained left 1st toe. The patient has been started on broad spectrum antibiotics. The 1st toe was painted with betadine and a gauze dressing was applied. Avoid weightbearing left forefoot. Regarding surgical intervention left foot - patient will lose 1st toe due to significant gangrenous changes, however since this is chronic in nature, and not wet, nor patient acutely sick from this, along with patient's other medical problems (anemia) - podiatry will continue to monitor - Dr. Hooks on consult who is planning possible vascular intervention pending improved rima and anemia/thrombocytopenia. This was discussed with patient and his family today. Podiatry will continue to follow.
--- NOTE | 2022-07-10 10:10 | CASEMGMT ---
RN DAVY Assessment: Face to Face with pt for initial transition planning/care coordination assessment. RN CM introduced self and role at [facility], pt voices understanding and consents to assessment. Pt is A/O x4 and answers all questions appropriately at this time. Pt lying in bed with oxygen on in no distress. Care providers, pharmacy, and demographics verified/updated. Admitting Dx: dry gangrene PCP:Bruna Specialists:Ze, onc; Bell, cardio Preferred Pharmacy: [facility] Insurance: [facility], [facility] Prescription Benefit: yes LNOK: Raisa Cordero, Living Arrangements: Pt lives with in a single story house with a ramp to enter. Pt reports he is I in ADL's and denies concerns at home. Transportation: Pt drives self and denies concerns with transportation. DME/HHC/SNF: Pt has a BGM with sufficient supply of strips and lancets. Pt has a cane that he sometimes uses. He also has a FWW. Pt has oxygen that someone got him at a garage sale but he does not use. Pt denies hx of HHC or SNF stays. Pt states no concerns with going home at time of dc. Per hospitalist, this course will be long. Discussed with pt that RN CM will be available to assist with any needs as hospitalization progresses. Pt states no further concerns/needs. CM to follow. Advised pt to ask CM if any further question/concerns/needs arise, voices understanding. Pt Goal: Home Plan: TBD
[2022-07-10] MEDS: Acetaminophen 325 MG Tablet 650 MG PO (10:58)
[2022-07-10] MEDS: Insulin Lispro 100 UNIT/ML INSULN.PEN SC (12:32)
[2022-07-10 12:40] LABS: Bedside Glucose 175 mg/dL (74-106)
[2022-07-10] MEDS: Glucerna Shake 120 ML LIQUID PO ×2 (13:45→17:47)
[2022-07-10 15:23] LABS: Hematocrit 21.4 % (40-54); Hemoglobin 6.7 g/dL (13.0-16.5); POSITIVE COUNT YES
[2022-07-10] MEDS: Juven (unflavored) Packet 1 PACKET PO (16:06)
[2022-07-10 16:21] LABS: Bedside Glucose 88 mg/dL (74-106)
[2022-07-10 21:32] LABS: Bilirubin, Direct 0.34 mg/dL (0.00-0.30); Ferritin 905 ng/mL (26-388); Iron 76 ug/dL (65-175); Iron Binding Capacity,Total 172 ug/dL (250-450); LDH 129 U/L (87-241)
[2022-07-10 21:38] LABS: Immature Platelet Fraction 33.9 % (1.0-7.9); Platelet Count 57 K/mm3 (150-450); RET-HE 33.7 pg (30-35); Reticulocyte Count 1.15 % (0.5-1.5)
--- NOTE | 2022-07-10 21:38 | NURSING ---
Pt refusing all medications at this time stating he wanted to wait unil morning. This RN explained that some are only scheduled for evening, and if he doesnt take them tonight it will just be a missed dose. This RN also attempted to educate on purpose of medications. Pt still refusing to take pills at this time. Allowed antibiotic to be hung and BG to be checked. VSS.
[2022-07-11] VITALS (9 sets, daily range): BP systolic 101–142; BP diastolic 54–84; PULSE 76–95; RESP 18; TEMP 36.5–38.5; O2SAT 91–97
[2022-07-11 00:41] LABS: Bedside Glucose 117 mg/dL (74-106)
[2022-07-11] MEDS: 0.9% Normal Saline 1,000 ML 75 ML IV ×2 (04:37→18:12)
[2022-07-11 06:55] LABS: Bedside Glucose 100 mg/dL (74-106)
[2022-07-11 06:57] LABS: Absolute Lymphocyte Count 1.43 X10^3/uL (0.83-4.51); Absolute Neutrophil Count 1.4 X10^3/uL (2.0-7.7); Basophil# 0.02 X10^3/uL; Basophil% 0.6 % (0-1); Eosinophil# 0.04 X10^3/uL; Eosinophils% 1.1 % (0-5); Hematocrit 22.5 % (40-54); Hemoglobin 7.2 g/dL (13.0-16.5); Lymphocyte # 1.43 X10^3/ul (0.83-4.51); Lymphocyte % 40.6 % (19-41); Mean Corpuscular Hgb 31.6 pg (27.0-32.0); Mean Corpuscular Volume 98.7 fL (80-94); Monocyte# 0.51 X10^3/uL; Monocyte% 14.5 % (0-10); NRBC Flagged by Analyzer 0 % (0-5); Neutrophil # 1.44 X10^3/uL (2.7-7.7); Neutrophil % 40.9 % (47-70); POSITIVE COUNT YES; POSITIVE MORPHOLOGY YES; Platelet Count 58 K/mm3 (150-450); RBC Distribution Width CV 20.7 % (11.6-14.6); RBC Distribution Width SD 71.6 fl (35.1-43.9); Red Blood Count 2.28 M/mm3 (4.6-6.2); White Blood Count 3.5 K/mm3 (4.4-11.0)
[2022-07-11 07:11] LABS: Differential Indicated SCAN CRITERIA MET
[2022-07-11 07:33] LABS: ALB/GLOB Ratio 0.8 RATIO (0.9-2.4); AST(SGOT) 15 U/L (15-37); Alanine Aminotransfer ALT/SGPT 20 U/L (16-61); Albumin, Serum 2.1 g/dL (3.2-5.0); Alkaline Phosphatase 108 U/L (45-117); Anion Gap 6 (5-15); BUN 49 mg/dL (7-18); BUN/Creat Ratio 25.9 RATIO (10-20); Chloride 111 mmol/L (98-107); Creatinine, Serum 1.89 mg/dL (0.70-1.30); EST Glomerular Filtration Rate 36 mL/min (>60); Est Glom Filt Rate - Afr Amer 44 mL/min (>60); Estimated Creatinine Clearance 33.22 ml/min; Globulin 2.7 g/dL (2.2-4.2); Glucose 97 mg/dL (74-106); Potassium 4.3 mmol/L (3.5-5.1); Protein, Total 4.8 g/dL (6.4-8.2); Sodium Level 138 mmol/L (136-145)
[2022-07-11 07:35] LABS: Crenated RBC 1+; Ovalocyte 1+; Platelet Estimate MKD DEC (ADEQ)
[2022-07-11 07:36] LABS: Acanthocytes RARE
[2022-07-11] MEDS: Glucerna Shake 120 ML LIQUID PO ×3 (09:05→16:53)
[2022-07-11] MEDS: Juven (unflavored) Packet 1 PACKET PO ×2 (09:05→16:53)
[2022-07-11] MEDS: Omega-3 Acid Ethyl Esters 1 GM Capsule PO ×2 (09:06→23:43)
[2022-07-11] MEDS: Cholecalciferol (VIT D3) 25 MCG TABLET (1,000 UNITS) PO ×2 (09:06→23:44)
[2022-07-11] MEDS: Glimepiride 2 MG Tablet PO (09:06)
--- NOTE | 2022-07-11 09:11 | PN.HOSP_ITS ---
Subjective Subjective No new events. Objective Data Objective Data Vital Signs: Vital Signs Temp Pulse Resp BP Pulse Ox O2 Del Method O2 Flow Rate 37.3 C H 92 18 142/61 H 95 Nasal Cannula 2 07/11/22 03:57 07/11/22 03:57 07/11/22 03:57 07/11/22 03:57 07/11/22 07:57 07/11/22 08:45 07/11/22 08:45 Oxygen Flow Rate (L/min) 2 Oxygen Delivery Method Nasal Cannula Weight: 98.1 kg Body Mass Index (BMI) 27.7 Intake & Output: Intake and Output for Last 24 Hours 07/09/22 07/10/22 07/11/22 23:59 23:59 23:59 Intake Total 1142 / 1142 3264.00 / 3264.00 977.5 / 977.5 Balance 1142 / 1142 3264.00 / 3264.00 977.5 / 977.5 Lab / Micro Data Result Diagrams: 07/11/22 05:39 07/11/22 05:39 Labs: Laboratory Results - last 24 hr 07/09/22 17:55: Crossmatch See Detail 07/09/22 17:55: Crossmatch See Detail 07/10/22 08:30: Platelet Estimate MKD DEC, Anisocytosis 2+, Crenated Cell RARE, Schistocytes RARE 07/10/22 12:09: POC Glucose 175 H 07/10/22 15:00: Hgb 6.7 L, Hct 21.4 L 07/10/22 15:00: Immature Plt Fraction 33.9 H, Retic Count 1.15, Immature Retic Fraction 19.20 H, Retic Hgb Equivalent 33.7 07/10/22 15:00: Antibody Screen Cancelled, Direct Antiglob Test NEG w/POLY SPECIFIC 07/10/22 15:59: POC Glucose 88 07/10/22 18:03: Iron 76, TIBC 172 L, Ferritin 905 H, Direct Bilirubin 0.34 H, Lactate Dehydrogenase 129 07/10/22 21:32: POC Glucose 117 H 07/11/22 05:39: WBC 3.5 L, RBC 2.28 L, Hgb 7.2 L, Hct 22.5 L, MCV 98.7 H, MCH 31.6, MCHC 32.0, RDW Std Deviation 71.6 H, RDW Coeff of Agustina 20.7 H, Plt Count 58 L, MPV TNP, Immature Gran % (Auto) 2.300 H, Neut % (Auto) 40.9 L, Lymph % (Auto) 40.6, [place] % (Auto) 14.5 H, Eos % (Auto) 1.1, Baso % (Auto) 0.6, Absolute Neuts (auto) 1.4 L, Absolute Lymphs (auto) 1.43, Nucleated RBC % 0, Platelet Estimate MKD DEC, Ovalocytes 1+, Crenated Cell 1+, Acanthocytes (Spur) RARE 07/11/22 05:39: Sodium 138, Potassium 4.3, Chloride 111 H, Carbon Dioxide 21.0, Anion Gap 6, BUN 49 H, Creatinine 1.89 H, Estim Creat Clear Calc 33.22, Est GFR (MDRD) Af Amer 44 L, Est GFR (MDRD) Non-Af 36 L, BUN/Creatinine Ratio 25.9 H, Glucose 97, Calcium 8.0 L, Total Bilirubin 0.90, AST 15, ALT 20, Alkaline Phosphatase 108, Total Protein 4.8 L, Albumin 2.1 L, Globulin 2.7, Albumin/Globulin Ratio 0.8 L 07/11/22 06:37: POC Glucose 100 Micro: Microbiology 07/10/22 18:27 Stool Stool Occult Blood (MARILY) - Final 07/09/22 18:47 Wound - Left Foot Gram Stain - Final 07/09/22 18:47 Stool Stool Occult Blood (MARILY) - Final Physical Exam Const alert and no apparent distress Resp normal respiratory effort, no retractions, no use of accessory muscles and clear to auscultation bilaterally Cardio regular rate, regular rhythm, S1 normal heart sound and S2 normal heart sound GI normal to inspection, nondistended, normoactive bowel sounds and soft to palpation Extremity Extremity Narrative: Right foot bandaged, did not remove. Assessment & Plan Assessment/Plan (1) Dry gangrene: PLAN: Dry gangrene Received vancomycin, Unasyn and Flagyl emergency department. Unasyn ordered. Vascular surgery consult. Podiatry consulted and following. Patient will need eventual amputation but will need revascularization either coinciding or beforehand. (2) Anemia: PLAN: Acute on chronic anemia Hemoglobin on presentation was 5.0. Review of labs shows chronic anemia. 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 Acute component unclear. On presentation 1 units of packed red blood cells blood ordered to transfuse at the ED. Trend H&H. When hemoglobin is stable and on discharge consider referral to urology Dr. Phillip; the patient is familiar with; and GI. He reports that his last colonoscopy was many years ago without provider exact number of years. Patient transfused total of 3 units thus far. Continue to monitor his H&H. Patient does have dark stools but notes that he takes iron. Concern is for possible GI blood loss. At least a component of his anemia is due to myelodysplastic syndrome but will need to rule out GI loss 2. Though I cannot rule out the possibility of GI need to be involved if patient is heme positive. Patient had a bone marrow biopsy performed on May 18 that showed mildly hypercellular marrow. Patient saw Dr. Kunz on 05/25/22 and the thought about management with growth factors. Consult oncology to see if those catheters would be indicated at this time. (3) Atherosclerosis of [place] arteries of extremities with gangrene, right leg: PLAN: L EAS and arterial duplex ordered Vascular surgery on consult Timing of intervention is to be determined based on other patients medical comorbidities including anemia and thrombocytopenia. (4) Thrombocytopenia: PLAN: Chronic but lower than has been in the past. Continue to monitor. No need to transfuse at this time (5) VTE (venous thromboembolism): PLAN: Apixaban currently on hold and patient had ran out a week and a half prior. Hold off on account of his anemia. (6) ADAM (acute kidney injury): PLAN: Creatinine 2.24 upon admission, baseline creatinine is around 1.72. Lisinopril held Patient did receive IV fluids. PLAN: Plan Diabetes mellitus Patient with hyperglycemia on presentation Glimepiride continued. Metformin held. Monitor Accu-Cheks Correction scale insulin ordered. ADAM Creatinine presentation was 2.24. Review of labs shows creatinine baseline around 1.5-1.75. BUN is 58. BUN/CR is 25.9 Trend BMP. Avoid nephrotoxins. Home lisinopril will be held. Gentle IV hydration. Lactic acidosis Lactic acid of 2.3. Trend. Sepsis ruled out. Abnormal EKG. ST depressions in anterior and lateral leads leads which is new compared to EKG on 07/24/2020. Troponin is normal. No chest pain. Hypertension Stable Metoprolol continued. Lisinopril held secondary ADAM. Of lisinopril held as needed hydralazine IV ordered. Trend blood pressure and adjust blood pressure medications. Heart failure with preserved ejection fraction Echocardiogram on 01/10/2019 showed EF of 55%. Stage II diastolic function. Myocardial perfusion test on 11/17/2020 showed ejection fraction of 71%. Stable. Cautious use of fluids. DVT prophylaxis: SCDs ordered. Is really unclear if patient can be optimized to the point where he would require to have surgery given his medical complexity. Complicating this is patient just stop following up and knew about his toe for months prior to being brought in but begrudgingly came in at the behest of his spouse. Prognosis guarded. Charges/Coding Visit Charges Inpatient E&M: 88426 Subs Hosp L2
[2022-07-11] MEDS: Acetaminophen 325 MG Tablet 650 MG PO ×3 (09:40→23:50)
[2022-07-11 10:37] LABS: Bacteria 0 SEEN /hpf (None Seen); Mucous, Urine 0 SEEN /hpf (<or=2+); Red Blood Cells-Urine 0 SEEN /hpf (0-5)
[2022-07-11 10:41] LABS: Color, Urine Yellow (Yellow); Glucose, Dipstick Normal (Normal); Ketone-Dipstick Negative (Negative); Leukocyte Esterase-Dipstick 25 /ul (Negative); Nitrite-Dipstick Negative (Negative); Occult Blood-Urine 10 /ul (Negative); Protein-Dipstick 30 mg/dl (Negative); Specific Gravity, Urine 1.015 (1.002-1.030); Urine Bilirubin Dipstick Negative (Negative); Urine Clarity Clear (Clear); Urine Urobilinogen Normal (Normal)
[2022-07-11 10:46] LABS: Squamous Epithelial Cells - UA 0-5 SEEN /hpf (0-5); White Blood Cells 0-5 SEEN /hpf (0-5)
--- NOTE | 2022-07-11 11:45 | PN_ITS ---
Subjective Subjective Patient was seen today for follow up on right foot. He is resting in bed. Relates pain to foot is 4/10. No fever at this time. Family is present visiting with patient. Objective Data Objective Data Vital Signs: Vital Signs Temp Pulse Resp BP Pulse Ox O2 Del Method O2 Flow Rate 97.9 F 85 18 101/56 L 95 Room Air 2 07/11/22 09:50 07/11/22 09:50 07/11/22 09:50 07/11/22 09:50 07/11/22 09:50 07/11/22 09:50 07/11/22 08:45 Oxygen Flow Rate (L/min) 2 Oxygen Delivery Method Room Air Weight: 98.1 kg Body Mass Index (BMI) 27.7 Intake & Output: Intake and Output for Last 24 Hours 07/09/22 07/10/22 07/11/22 23:59 23:59 23:59 Intake Total 1142 / 1142 3264.00 / 3264.00 1089.5 / 1089.5 Balance 1142 / 1142 3264.00 / 3264.00 1089.5 / 1089.5 Lab / Micro Data Result Diagrams: 07/11/22 05:39 07/11/22 05:39 Labs: Laboratory Results - last 24 hr 07/09/22 17:55: Crossmatch See Detail 07/09/22 17:55: Crossmatch See Detail 07/10/22 12:09: POC Glucose 175 H 07/10/22 15:00: Hgb 6.7 L, Hct 21.4 L 07/10/22 15:00: Immature Plt Fraction 33.9 H, Retic Count 1.15, Immature Retic Fraction 19.20 H, Retic Hgb Equivalent 33.7 07/10/22 15:00: Antibody Screen Cancelled, Direct Antiglob Test NEG w/POLYSPECIFIC 07/10/22 15:59: POC Glucose 88 07/10/22 18:03: Iron 76, TIBC 172 L, Ferritin 905 H, Direct Bilirubin 0.34 H, Lactate Dehydrogenase 129 07/10/22 21:32: POC Glucose 117 H 07/11/22 05:39: WBC 3.5 L, RBC 2.28 L, Hgb 7.2 L, Hct 22.5 L, MCV 98.7 H, MCH 31.6, MCHC 32.0, RDW Std Deviation 71.6 H, RDW Coeff of Agustina 20.7 H, Plt Count 58 L, MPV TNP, Immature Gran % (Auto) 2.300 H, Neut % (Auto) 40.9 L, Lymph % (Auto) 40.6, [place] % (Auto) 14.5 H, Eos % (Auto) 1.1, Baso % (Auto) 0.6, Absolute Neuts (auto) 1.4 L, Absolute Lymphs (auto) 1.43, Nucleated RBC % 0, Platelet Estimate MKD DEC, Ovalocytes 1+, Crenated Cell 1+, Acanthocytes (Spur) RARE 07/11/22 05:39: Sodium 138, Potassium 4.3, Chloride 111 H, Carbon Dioxide 21.0, Anion Gap 6, BUN 49 H, Creatinine 1.89 H, Estim Creat Clear Calc 33.22, Est GFR (MDRD) Af Amer 44 L, Est GFR (MDRD) Non-Af 36 L, BUN/Creatinine Ratio 25.9 H, Glucose 97, Calcium 8.0 L, Total Bilirubin 0.90, AST 15, ALT 20, Alkaline Phosphatase 108, Total Protein 4.8 L, Albumin 2.1 L, Globulin 2.7, Albumin/Globulin Ratio 0.8 L 07/11/22 06:37: POC Glucose 100 07/11/22 10:23: Urine Color Yellow, Urine Clarity Clear, Urine pH 6.0, Ur Specific [place] 1.015, Urine Protein 30 H, Urine Glucose (UA) Normal, Urine Ketones Negative, Urine Occult Blood 10 H, Urine Nitrite Negative, Urine Bilirubin Negative, Urine Urobilinogen Normal, Ur Leukocyte Esterase 25 H, Urine RBC 0 SEEN, Urine WBC 0-5 SEEN, Ur Squamous Epith Cells 0-5 SEEN, Urine Bacteria 0 SEEN, Urine Mucus 0 SEEN Micro: Microbiology 07/09/22 18:47 Wound - Left Foot Gram Stain - Final 07/09/22 18:47 Wound - Left Foot Wound Culture - Preliminary Coag Negative Staph Gram positive misa 07/10/22 18:27 Stool Stool Occult Blood (MARILY) - Final 07/09/22 18:47 Stool Stool Occult Blood (MARILY) - Final Physical Exam Const alert, oriented x3 and no apparent distress Constitutional Narrative: Left foot with dry gangrene to the entire 1st toe, there is an open ulceration at the plantar proximal gangrene border down to subcutaneous tissue, there is erythema to the distal forefoot dorsally and some plantarly, there is no fluct uance, no crepitus, no blistering, no visible abscess present; 2nd and 3rd toes are dusky, DP and PT nonpalpable left foot, there is decreased sensation to the left foot. Assessment & Plan Assessment/Plan (1) Dry gangrene: (2) Other specified peripheral vascular diseases: (3) Other hereditary and idiopathic neuropathies: PLAN: Plan Evaluation performed. Reviewed diagnostic data. We will continue to monitor foot, pending vascular status I believe he will likely at least need a TMA. A culture has been obtained left 1st toe. Growing gram positive misa, and CoNS. The patient is on antibiotics. The site was painted with betadine and a gauze dressing was applied. Avoid weightbearing left forefoot. Regarding surgical intervention left foot - patient will lose 1st toe due to significant gangrenous changes, however due to dusky nature of the other toes I believe he will need at least a TMA, this is chronic and not wet, nor patient acutely sick from this, along with patient's other medical problems (anemia, rima) - podiatry will continue to monitor - Dr. Hooks on consult who is planning possible vascular intervention pending improved rima and anemia/thrombocytopenia. This was discussed with patient and his family today. Podiatry will continue to follow.
[2022-07-11] MEDS: oxyCODONE 5 MG Tablet PO (13:40)
[2022-07-11 15:16] LABS: Bedside Glucose 130 mg/dL (74-106)
[2022-07-11 18:55] LABS: Bedside Glucose 117 mg/dL (74-106)
[2022-07-11] MEDS: Tamsulosin HCl 0.4 MG Capsule PO (23:41)
[2022-07-11] MEDS: Atorvastatin Calcium 10 MG Tablet PO (23:42)
[2022-07-11] MEDS: Metoprolol Tartrate 50 MG Tablet PO (23:44)
[2022-07-12] VITALS (11 sets, daily range): BP systolic 96–108; BP diastolic 48–54; PULSE 72–80; RESP 16–18; TEMP 36.5–37.1; O2SAT 93–97
[2022-07-12 01:05] LABS: Bedside Glucose 96 mg/dL (74-106)
[2022-07-12 06:26] LABS: Absolute Neutrophil Count 1.2 X10^3/uL (2.0-7.7); Basophil# 0.02 X10^3/uL; Basophil% 0.7 % (0-1); Eosinophil# 0.08 X10^3/uL; Eosinophils% 2.6 % (0-5); Hemoglobin 6.9 g/dL (13.0-16.5); Lymphocyte % 39.7 % (19-41); Mean Corp Hgb Conc 31.4 g/dL (32-36); Mean Corpuscular Hgb 31.7 pg (27.0-32.0); Mean Corpuscular Volume 100.9 fL (80-94); Monocyte# 0.46 X10^3/uL; Monocyte% 15.2 % (0-10); NRBC Flagged by Analyzer 1.7 % (0-5); Neutrophil % 39.8 % (47-70); POSITIVE COUNT YES; POSITIVE MORPHOLOGY YES; RBC Distribution Width CV 20.4 % (11.6-14.6); RBC Distribution Width SD 73.7 fl (35.1-43.9); Red Blood Count 2.18 M/mm3 (4.6-6.2)
[2022-07-12] MEDS: 0.9% Normal Saline 1,000 ML 75 ML IV ×2 (06:33→21:00)
[2022-07-12 06:36] LABS: Differential Indicated SCAN CRITERIA MET
[2022-07-12 06:53] LABS: Anion Gap 7 (5-15); BUN 52 mg/dL (7-18); BUN/Creat Ratio 30.2 RATIO (10-20); Calcium,Total 7.9 mg/dL (8.5-10.1); Chloride 112 mmol/L (98-107); Creatinine, Serum 1.72 mg/dL (0.70-1.30); EST Glomerular Filtration Rate 40 mL/min (>60); Est Glom Filt Rate - Afr Amer 49 mL/min (>60); Estimated Creatinine Clearance 36.51 ml/min; Glucose 93 mg/dL (74-106); Potassium 4.5 mmol/L (3.5-5.1); Sodium Level 138 mmol/L (136-145)
[2022-07-12 07:10] LABS: Bedside Glucose 87 mg/dL (74-106)
--- NOTE | 2022-07-12 07:33 | PCM.PROGNOTE ---
Subjective Subjective Patient was seen this morning for follow up on right foot. He is resting, sitting up in bed. No new pedal complaints. No fever. Objective Data Objective Data Vital Signs: Vital Signs Temp Pulse Resp BP Pulse Ox O2 Del Method O2 Flow Rate 98.6 F 80 16 107/51 L 93 Nasal Cannula 3 07/12/22 06:30 07/12/22 06:43 07/12/22 06:30 07/12/22 06:30 07/12/22 06:30 07/12/22 06:30 07/12/22 06:30 Oxygen Flow Rate (L/min) 3 Oxygen Delivery Method Nasal Cannula Weight: 98.1 kg Body Mass Index (BMI) 27.7 Intake & Output: Intake and Output for Last 24 Hours 07/10/22 07/11/22 07/12/22 23:59 23:59 23:59 Intake Total 3264.00 / 3264.00 3119.5 / 3119.5 1038.25 / 1038.25 Output Total 4 / 4 Balance 3264.00 / 3264.00 3115.5 / 3115.5 1038.25 / 1038.25 Lab / Micro Data Result Diagrams: 07/12/22 06:13 07/12/22 06:13 Labs: Laboratory Results - last 24 hr 07/11/22 05:39: Platelet Estimate MKD DEC, Ovalocytes 1+, Crenated Cell 1+, Acanthocytes (Spur) RARE 07/11/22 05:39: Sodium 138, Potassium 4.3, Chloride 111 H, Carbon Dioxide 21.0, Anion Gap 6, BUN 49 H, Creatinine 1.89 H, Estim Creat Clear Calc 33.22, Est GFR (MDRD) Af Amer 44 L, Est GFR (MDRD) Non-Af 36 L, BUN/Creatinine Ratio 25.9 H, Glucose 97, Calcium 8.0 L, Total Bilirubin 0.90, AST 15, ALT 20, Alkaline Phosphatase 108, Total Protein 4.8 L, Albumin 2.1 L, Globulin 2.7, Albumin/Globulin Ratio 0.8 L 07/11/22 10:23: Urine Color Yellow, Urine Clarity Clear, Urine pH 6.0, Ur Specific [place] 1.015, Urine Protein 30 H, Urine Glucose (UA) Normal, Urine Ketones Negative, Urine Occult Blood 10 H, Urine Nitrite Negative, Urine Bilirubin Negative, Urine Urobilinogen Normal, Ur Leukocyte Esterase 25 H, Urine RBC 0 SEEN, Urine WBC 0-5 SEEN, Ur Squamous Epith Cells 0-5 SEEN, Urine Bacteria 0 SEEN, Urine Mucus 0 SEEN 07/11/22 11:23: POC Glucose 130 H 07/11/22 16:51: POC Glucose 117 H 07/11/22 23:47: POC Glucose 96 07/12/22 06:13: WBC 3.0 L, RBC 2.18 L, Hgb 6.9 L, Hct 22.0 L, MCV 100.9 H, MCH 31.7, MCHC 31.4 L, RDW Std Deviation 73.7 H, RDW Coeff of Agustina 20.4 H, Plt Count 60 L, Immature Gran % (Auto) 2.000 H, Neut % (Auto) 39.8 L, Lymph % (Auto) 39.7, [place] % (Auto) 15.2 H, Eos % (Auto) 2.6, Baso % (Auto) 0.7, Absolute Neuts (auto) 1.2 L, Absolute Lymphs (auto) 1.20, Nucleated RBC % 1.7 07/12/22 06:13: Sodium 138, Potassium 4.5, Chloride 112 H, Carbon Dioxide 19.0 L, Anion Gap 7, BUN 52 H, Creatinine 1.72 H, Estim Creat Clear Calc 36.51, Est GFR (MDRD) Af Amer 49 L, Est GFR (MDRD) Non-Af 40 L, BUN/Creatinine Ratio 30.2 H, Glucose 93, Calcium 7.9 L 07/12/22 06:36: POC Glucose 87 Micro: Microbiology 07/09/22 18:47 Wound - Left Foot Gram Stain - Final 07/09/22 18:47 Wound - Left Foot Wound Culture - Preliminary Coag Negative Staph Gram positive misa 07/10/22 18:27 Stool Stool Occult Blood (MARILY) - Final 07/09/22 18:47 Stool Stool Occult Blood (MARILY) - Final Physical Exam Const alert, oriented x3 and no apparent distress Constitutional Narrative: Left foot with dry gangrene to the entire 1st toe, there is erythema to the distal forefoot dorsally and some plantarly, there is no fluctuance, no crepitus, no blistering, no visible abscess present; 2nd and 3rd toes are more dusky developing into dry gangrene, DP and PT nonpalpable left foot, there is decreased sensation to the left foot. Assessment & Plan Assessment/Plan (1) Dry gangrene: (2) Other specified peripheral vascular diseases: (3) Other hereditary and idiopathic neuropathies: PLAN: Plan Evaluation performed. Reviewed diagnostic data. We will continue to monitor foot, pending vascular status I believe he will likely at least need a TMA. A culture has been obtained left 1st toe. Growing gram positive misa, and CoNeg Staph. The patient is on antibiotic - Unasyn. The site was painted with betadine and a gauze dressing was applied. Avoid weightbearing left forefoot. Regarding surgical intervention left foot - patient will lose 1st toe due to significant gangrenous changes, however due to dusky nature of the other toes I believe he will need at least a TMA, this is chronic and not wet, nor patient acutely sick from this, along with patient's other medical problems (anemia, rima) - podiatry will continue to monitor - Dr. Hooks on consult who is planning possible vascular intervention pending improved rima and anemia/thrombocytopenia. This was discussed with patient and his family today. Podiatry will continue to follow.
--- NOTE | 2022-07-12 08:00 | PN.HOSP_ITS ---
Subjective Subjective Patient is an 87-year-old gentleman sent from his primary care physician's office to the ED with necrotic right big toe Objective Data Objective Data Vital Signs: Vital Signs Temp Pulse Resp BP Pulse Ox O2 Del Method O2 Flow Rate 98.6 F 80 16 107/51 L 93 Nasal Cannula 3 07/12/22 06:30 07/12/22 06:43 07/12/22 06:30 07/12/22 06:30 07/12/22 06:30 07/12/22 06:30 07/12/22 06:30 Oxygen Flow Rate (L/min) 3 Oxygen Delivery Method Nasal Cannula Weight: 98.1 kg Body Mass Index (BMI) 27.7 Intake & Output: Intake and Output for Last 24 Hours 07/10/22 07/11/22 07/12/22 23:59 23:59 23:59 Intake Total 3264.00 / 3264.00 3119.5 / 3119.5 1038.25 / 1038.25 Output Total 4 / 4 Balance 3264.00 / 3264.00 3115.5 / 3115.5 1038.25 / 1038.25 Lab / Micro Data Result Diagrams: 07/12/22 06:13 07/12/22 06:13 Labs: Laboratory Results - last 24 hr 07/11/22 10:23: Urine Color Yellow, Urine Clarity Clear, Urine pH 6.0, Ur Specific [place] 1.015, Urine Protein 30 H, Urine Glucose (UA) Normal, Urine Ketones Negative, Urine Occult Blood 10 H, Urine Nitrite Negative, Urine Bilirubin Negative, Urine Urobilinogen Normal, Ur Leukocyte Esterase 25 H, Urine RBC 0 SEEN, Urine WBC 0-5 SEEN, Ur Squamous Epith Cells 0-5 SEEN, Urine Bacteria 0 SEEN, Urine Mucus 0 SEEN 07/11/22 11:23: POC Glucose 130 H 07/11/22 16:51: POC Glucose 117 H 07/11/22 23:47: POC Glucose 96 07/12/22 06:13: WBC 3.0 L, RBC 2.18 L, Hgb 6.9 L, Hct 22.0 L, MCV 100.9 H, MCH 31.7, MCHC 31.4 L, RDW Std Deviation 73.7 H, RDW Coeff of Agustina 20.4 H, Plt Count 60 L, Immature Gran % (Auto) 2.000 H, Neut % (Auto) 39.8 L, Lymph % (Auto) 39.7, [place] % (Auto) 15.2 H, Eos % (Auto) 2.6, Baso % (Auto) 0.7, Absolute Neuts (auto) 1.2 L, Absolute Lymphs (auto) 1.20, Nucleated RBC % 1.7 07/12/22 06:13: Sodium 138, Potassium 4.5, Chloride 112 H, Carbon Dioxide 19.0 L , Anion Gap 7, BUN 52 H, Creatinine 1.72 H, Estim Creat Clear Calc 36.51, Est GFR (MDRD) Af Amer 49 L, Est GFR (MDRD) Non-Af 40 L, BUN/Creatinine Ratio 30.2 H , Glucose 93, Calcium 7.9 L 07/12/22 06:36: POC Glucose 87 Micro: Microbiology 07/09/22 18:47 Wound - Left Foot Gram Stain - Final 07/09/22 18:47 Wound - Left Foot Wound Culture - Preliminary Coag Negative Staph Gram positive misa 07/10/22 18:27 Stool Stool Occult Blood (MARILY) - Final 07/09/22 18:47 Stool Stool Occult Blood (MARILY) - Final Physical Exam Narrative GENERAL: cooperative HEENT: Atraumatic; normocephalic EYES; Anicteric, Normal Conjunctiva NECK; supple, normal thyroid, RESPIRATORY: Diminished to auscultation CARDIOVASCULAR: Regular S1 S2, GI: soft, normoactive bowel sounds, : No Renal angle tenderness; EXTREMITIES: Right foot in surgical dressing MUSCULOSKELETAL: no muscle wasting NEURO: Awake; no lateralizing signs. SKIN: No Rash PSYCH; Flat affect Assessment & Plan Assessment/Plan (1) Dry gangrene: PLAN: Plan Patient is an 87-year-old gentleman sent from his primary care physician's office to the ED with necrotic right big toe 1. 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 Admitted to regular nursing floor started on broad-spectrum antibiotic therapy with Unasyn. Consultation placed to both vascular surgery as well as podiatry medicine 2. Peripheral arterial disease with known history of SFA/popliteal occlusion ? Patient seen in consultation by Dr. Hooks with vascular disease. Recommended for patient to undergo further vascular surgery prior to any surgical intervention possibly right TMA amputation 3. Anemia ? Secondary to myelodysplastic syndrome patient seen in consultation by Dr. Redmond notes and recommendations reviewed. Patient is on Revlimid did continue 4. Thrombocytopenia ? Secondary to myelodysplastic syndrome monitoring 5. Diabetes mellitus type 2 with complications including diabetic nephropathy ? Patient is on metformin held on admission placed on Accu-Cheks before meals a nd at bedtime with sliding scale coverage. Patient was on glimepiride discontinued in view of significant risk for hypoglycemia given patient impaired kidney function 6. Chronic kidney disease stage III ? Secondary to diabetic nephropathy monitoring with daily BMPs 7. History of pulmonary embolism ? Patient was on Eliquis prior to coming in. He had apparently ran out almost 10 days prior to his admission. Severe anemia as well as his anticipated TMA Eliquis was held on admission 8. BPH ? Patient is on tamsulosin did continue 9. Dyslipidemia -Patient is on statin at home did continue 10. Lactic acidosis ? Present on admission secondary to patient being on metformin metformin held on admission 11. Chronic congestive heart failure with preserved ejection fraction ? Currently not in exacerbation we will continue with monitoring Total time spent evaluating patient; 38 min Charges/Coding Visit Charges Inpatient E&M: 82327 Subs Hosp L2
[2022-07-12 08:23] LABS: Platelet Count 61 K/mm3 (150-450)
--- NOTE | 2022-07-12 08:27 | WOUNDNOTE ---
wound photo: right foot
--- NOTE | 2022-07-12 08:28 | WOUNDNOTE ---
wound photo: right foot
[2022-07-12 08:34] LABS: Anisocytosis 2+; Differential Comment SCANNED; Macrocytosis 1+; Microcytosis 1+; Platelet Estimate MKD DEC (ADEQ); Platelet Morphology LARGE
[2022-07-12] MEDS: Glucerna Shake 120 ML LIQUID PO ×3 (09:56→20:59)
[2022-07-12] MEDS: Glimepiride 2 MG Tablet PO (10:00)
[2022-07-12] MEDS: Metoprolol Tartrate 50 MG Tablet PO (10:00)
[2022-07-12] MEDS: Juven (unflavored) Packet 1 PACKET PO ×2 (10:00→16:24)
[2022-07-12] MEDS: Cholecalciferol (VIT D3) 25 MCG TABLET (1,000 UNITS) PO ×2 (10:00→21:01)
[2022-07-12] MEDS: Omega-3 Acid Ethyl Esters 1 GM Capsule PO ×2 (10:01→21:00)
[2022-07-12] MEDS: Acetaminophen 325 MG Tablet 650 MG PO ×3 (10:09→21:01)
--- NOTE | 2022-07-12 11:34 | ONC.CONSULT ---
Assessment & Plan Assessment/Plan (1) MDS (myelodysplastic syndrome): Status: Acute Code(s): D46.9 - Myelodysplastic syndrome, unspecified Plan: Poor prognosis MDS presenting with progressive pancytopenia with multiple chromosomal abnormalities including -7 and -5, probably secondary to prior chemo therapy exposure with bone marrow failure and severe transfusion dependent anemia. Recently started on erythrocyte stimulating agent therapy and Revlimid for 5 q. minus chromosomal abnormality under the care of Dr. Kunz. There is no evidence to suggest deficiencies of iron or B12, active external blood loss or hemolysis. (2) Pancytopenia: Status: Chronic Code(s): D61.818 - Other pancytopenia Plan: #1- Supportive transfusion was packed red blood cells to maintain hemoglobin above 7-8 g per DL if possible. #2- Prophylactic platelet transfusions if platelet count less than 10K or patient is actively bleeding. #3-To hold systemic anticoagulation if platelet count is less than 30 K. #4-Avoid NSAIDs. #5-Palliative referral. #6-Follow-up in outpatient after discharge with Dr. Kunz. #7-Advise conservative management of peripheral vascular disease keeping in mind poor prognosis from bone marrow disease. Patient was seen with his and daughter. Impression and recommendation discussed. Adele Redmond MD Design Studio Consultant, [facility] Divisions of Medical Oncology & Hematology Department of Internal Medicine [place] [id number] This note was generated using a voice recognition system software. Although it was reviewed by the author prior to finalization, it may still contain incorrect words, spelling, and punctuation that were not noted when reviewing prior to saving. If a clinically significant typo or inaccurately typed phrase is noted, please notify the author. (3) History of non-Hodgkin's lymphoma: Status: Chronic Code(s): Z85.72 - Personal history of non-Hodgkin lymphomas HPI Consult Data Date of Service:: 07/12/22 PCP / Referring Provider: Dr. Livan Mcfarland MD Attending: Dr. Giovany Minor MD Chief Complaint Chief Complaint: Fatigue, anemia History of Present Illness History of Present Illness: 87-year-old male admitted with increasing fatigue and severe anemia. 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 In May 2022 was evaluated for progressive pancytopenia and a bone marrow biopsy was consistent with a myelodysplastic syndrome with multiple chromosomal abnormalities including -7 and -5 and estimated blast count of 3 to 5% based on flow cytometry. He was started on erythrocyte stimulating agent therapy and systemic therapy with Revlimid in June 2022 under the care of Dr. Kunz. Advanced Directives Power of Cannon [employer] Direction Specialist: Yes Living Will: Yes [facility], LAT[facility] Medical History (Updated 07/12/22 @ 11:[address] Adele Redmond MD) Atherosclerosis of coronary artery of [place] heart without angina pectoris Atherosclerosis of [place] artery of both lower extremities with intermittent claudication Basal cell carcinoma of right forearm Bilateral pulmonary embolism (01/2019) Bladder cancer Chemotherapy management, encounter for Diabetes Discoloration of skin Dysuria Encounter for education Essential (primary) hypertension Fall Former smoker Hematuria, gross Hyperlipidemia Injury of back Large B-cell lymphoma Low back pain Lower urinary tract symptoms Lymphoma MDS (myelodysplastic syndrome) Obesity Pancytopenia Peripheral vascular occlusive disease Prostate disease Recurrent right inguinal hernia Right inguinal hernia Right leg pain Scrotal abscess Secondary pulmonary arterial hypertension Sleep apnea 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 artery Thyromegaly Type 2 diabetes mellitus Venous insufficiency (chronic) (peripheral) VTE (venous thromboembolism) Wears dentures Home Medications lisinopril 20 mg tablet 20 mg PO BID Blood pressure 04/05/18 [History Last Taken 07/08/22] lovastatin 40 mg tablet 40 mg PO QHS CHOLESTEROL 04/05/18 [History Last Taken 07/08/22] metformin 1,000 mg tablet 1,000 mg PO BID DIABETES 04/05/18 [History Last Taken 07/08/22] omega-3 fatty acids-fish oil 340 mg-1,000 mg capsule 1 cap PO BID SUPPLEMENT 04/10/18 [History Last Taken 07/09/22] tamsulosin 0.4 mg capsule 0.4 mg PO QHS URINE FLOW 09/08/18 [History Last Taken 07/08/22] metoprolol tartrate 50 mg tablet 50 mg PO BID blood pressure 09/19/18 [History Last Taken 07/09/22] cholecalciferol (vitamin D3) 25 mcg (1,000 unit) tablet 25 mcg PO BID supplement 01/24/19 [History Last Taken 07/08/22] lidocaine-prilocaine 2.5 %-2.5 % topical cream 1 applic topical ONCE PRN port access 30 days #30 grams 05/20/21 [Rx Last Taken Unknown] glimepiride 1 mg tablet 2 mg PO DAILY dm 06/01/21 [History Last Taken 07/09/22] apixaban 2.5 mg tablet (Eliquis) 2.5 mg PO BID blood thinner 12/21/21 [History Last Taken 1 Week Ago ~07/02/22] lenalidomide 10 mg capsule (Revlimid) 10 mg PO DAILY Check with primary doctor 07/09/22 [History Last Taken 07/08/22] Allergy/AdvReac Type Severity Reaction Status Date / Time No Known Allergies Allergy Verified 07/09/22 14:53 Family History Sister Breast cancer Diabetes Mother Diabetes Brother Heart disease Hypertension Surgical History Femoral-popliteal bypass graft occlusion, right H/O coronary artery bypass surgery (2006) H/O hernia repair History of appendectomy History of bladder surgery (09/2019) History of cataract extraction History of femoral angiogram (11/21/12) History of herniorrhaphy History of right-sided carotid endarterectomy History of tonsillectomy and adenoidectomy History of transurethral destruction of bladder lesion (12/2018) Hx of lymph node biopsy Social History Smoking Status: Former smoker how long ago did patient quit smokin years ago alcohol intake: current alcohol intake frequency: a few times a week substance use type: does not use caffeine: Yes Type: coffee Number of servings: 2 lars/yazdanism: None seatbelt use: always do you feel safe at home: Yes ROS Constitutional Constitutional: Reports fatigue; Denies fever(s) or weight loss ENT HEENT: Reports other Details: No epistaxis or gum bleed ; Denies dysphagia Cardiovascular Cardiovascular: Reports dyspnea, edema and other Details: Gangrenous right toe ; Denies chest pain Respiratory/Chest Respiratory/Chest: Reports dyspnea; Denies hemoptysis Gastrointestinal Gastrointestinal: Denies abdominal pain, hematochezia, melena, nausea or vomiting Genitourinary Genitourinary: Reports change in urinary stream; Denies hematuria Musculoskeletal Musculoskeletal: Denies back pain Integumentary Integumentary: Reports unusual bruising Physical Exam Narrative ECOG 3-4 Const alert and oriented x3 General Appearance: cooperative Nutritional Appearance: obese HEENT normocephalic Neck no lymphadenopathy Lymph Lymphatic: no lymphadenopathy noted Resp clear to auscultation bilaterally Cardio regular rate and regular rhythm GI soft to palpation, non-tender and no masses Extremity Extremity Narrative: Right foot dressings left uninterrupted General Extremity: edema bilateral lower extremity Details: mild Skin General Skin Exam: ecchymosis Neuro CN's II-XII intact bilaterally, moves all extremities and no focal motor deficits Psych mental status grossly normal Vital Signs Temperature 98.2 F 07/12/22 09:55 Temperature Source Oral 07/12/22 09:55 Pulse Rate 77 07/12/22 10:00 Pulse Strength Normal (2+) 07/12/22 08:14 Respiratory Rate 18 07/12/22 09:55 Respiratory Effort 07/12/22 03:00 Respiratory Depth Normal 07/12/22 03:00 Respiratory Pattern Normal 07/12/22 03:00 Blood Pressure 104/53 L 07/12/22 10:00 Blood Pressure Mean 70 07/12/22 09:55 Blood Pressure Source Monitor 07/12/22 09:55 Blood Pressure Position Semi-Fowlers 07/12/22 09:55 Blood Pressure Location Right Arm 07/12/22 09:55 Pulse Ox 94 07/12/22 09:55 Oxygen Delivery Method Nasal Cannula 07/12/22 09:55 Oxygen Flow Rate (L/min) 3 07/12/22 09:55 Laboratory Results - last 24 hr 07/11/22 11:23: POC Glucose 130 H 07/11/22 16:51: POC Glucose 117 H 07/11/22 23:47: POC Glucose 96 07/12/22 06:13: WBC 3.0 L, RBC 2.18 L, Hgb 6.9 L, Hct 22.0 L, MCV 100.9 H, MCH 31.7, MCHC 31.4 L, RDW Std Deviation 73.7 H, RDW Coeff of Agustina 20.4 H, Plt Count 61 L, Immature Gran % (Auto) 2.000 H, Neut % (Auto) 39.8 L, Lymph % (Auto) 39.7, [place] % (Auto) 15.2 H, Eos % (Auto) 2.6, Baso % (Auto) 0.7, Absolute Neuts (auto) 1.2 L, Absolute Lymphs (auto) 1.20, Nucleated RBC % 1.7, Differential Comment SCANNED, Platelet Estimate MKD DEC, Plt Morphology Comment LARGE, Anisocytosis 2+, Microcytosis 1+, Macrocytosis 1+ 07/12/22 06:13: Sodium 138, Potassium 4.5, Chloride 112 H, Carbon Dioxide 19.0 L, Anion Gap 7, BUN 52 H, Creatinine 1.72 H, Estim Creat Clear Calc 36.51, Est GFR (MDRD) Af Amer 49 L, Est GFR (MDRD) Non-Af 40 L, BUN/Creatinine Ratio 30.2 H, Glucose 93, Calcium 7.9 L 07/12/22 06:36: POC Glucose 87 Laboratory Tests 06/22/22 07/09/22 07/10/22 13:58 17:20 15:00 Hgb 6.8 L 5.0 L* Plt Count 122 L 58 L Absolute Neuts (auto) 1.9 L 1.8 L Immature Retic Fraction 19.20 H Ferritin Total Bilirubin Lactate Dehydrogenase 07/10/22 07/11/22 07/12/22 18:03 05:39 06:13 Hgb 6.9 L Plt Count 61 L Absolute Neuts (auto) 1.2 L Immature Retic Fraction Ferritin 905 H Total Bilirubin 0.90 Lactate Dehydrogenase 129 Microbiology 07/09/22 17:20 Blood Culture (Wb) - Other Blood Culture - Preliminary No growth in 48 hours. 07/09/22 17:55 Blood Culture (Wb) - Port Blood Culture - Preliminary No growth in 48 hours. 07/09/22 18:47 Wound - Left Foot Gram Stain - Final 07/09/22 18:47 Wound - Left Foot Wound Culture - Preliminary Coag Negative Staph Gram positive misa Diagnostic Data Foot X-Ray 07/09/22 18:17 IMPRESSION: 1. No evidence of fracture or malalignment involving the RIGHT foot. 2. Degenerative change involving the first MTP and the first interphalangeal joint. Electronically Signed: Gordy Bardales MD at 18:37 EST ,
[2022-07-12 11:55] LABS: Bedside Glucose 133 mg/dL (74-106)
[2022-07-12 16:46] LABS: Bedside Glucose 132 mg/dL (74-106)
--- NOTE | 2022-07-12 17:47 | PCM.PN.SRG ---
Subjective Subjective Feeling well overall. No significant change in foot, no new pain/F/C. Objective Data Objective Data Vital Signs: Vital Signs Temp Pulse Resp BP Pulse Ox O2 Del Method O2 Flow Rate 97.7 F L 78 18 108/48 L 96 Nasal Cannula 2 07/12/22 16:01 07/12/22 16:01 07/12/22 16:01 07/12/22 16:01 07/12/22 16:01 07/12/22 16:01 07/12/22 16:01 Oxygen Flow Rate (L/min) 2 Oxygen Delivery Method Nasal Cannula Weight: 216 lb 4.375 oz Body Mass Index (BMI) 27.7 Intake & Output: Intake and Output for Last 24 Hours 07/10/22 07/11/22 07/12/22 23:59 23:59 23:59 Intake Total 3264.00 / 3264.00 3119.5 / 3119.5 1150.25 / 1150.25 Output Total 4 / 4 Balance 3264.00 / 3264.00 3115.5 / 3115.5 1150.25 / 1150.25 Lab / Micro Data Result Diagrams: 07/12/22 06:13 07/12/22 06:13 Labs: Laboratory Results - last 24 hr 07/11/22 16:51: POC Glucose 117 H 07/11/22 23:47: POC Glucose 96 07/12/22 06:13: WBC 3.0 L, RBC 2.18 L, Hgb 6.9 L, Hct 22.0 L, MCV 100.9 H, MCH 31.7, MCHC 31.4 L, RDW Std Deviation 73.7 H, RDW Coeff of Agustina 20.4 H, Plt Count 61 L, Immature Gran % (Auto) 2.000 H, Neut % (Auto) 39.8 L, Lymph % (Auto) 39.7, [place] % (Auto) 15.2 H, Eos % (Auto) 2.6, Baso % (Auto) 0.7, Absolute Neuts (auto) 1.2 L, Absolute Lymphs (auto) 1.20, Nucleated RBC % 1.7, Differential Comment SCANNED, Platelet Estimate MKD DEC, Plt Morphology Comment LARGE, Anisocytosis 2+, Microcytosis 1+, Macrocytosis 1+ 07/12/22 06:13: Sodium 138, Potassium 4.5, Chloride 112 H, Carbon Dioxide 19.0 L, Anion Gap 7, BUN 52 H, Creatinine 1.72 H, Estim Creat Clear Calc 36.51, Est GFR (MDRD) Af Amer 49 L, Est GFR (MDRD) Non-Af 40 L, BUN/Creatinine Ratio 30.2 H, Glucose 93, Calcium 7.9 L 07/12/22 06:36: POC Glucose 87 07/12/22 11:33: POC Glucose 133 H 07/12/22 16:23: POC Glucose 132 H Micro: Microbiology 07/09/22 18:47 Wound - Left Foot Gram Stain - Final 07/09/22 18:47 Wound - Left Foot Wound Culture - Preliminary Coag Negative Staph Gram positive misa 07/09/22 17:20 Blood Culture (Wb) - Other Blood Culture - Preliminary No growth in 48 hours. 07/09/22 17:55 Blood Culture (Wb) - Port Blood Culture - Preliminary No growth in 48 hours. 07/10/22 18:27 Stool Stool Occult Blood (MARILY) - Final 07/09/22 18:47 Stool Stool Occult Blood (MARILY) - Final Radiography Diagnostic Testing: Radiology Impression Extremity Arterial Study 07/09/22 18:42 Interpretation Summary Right ARTHUR 0.52, severe arterial insufficiency. Doppler/PVR waveforms and segmental pressures reveal szvfn-jdgvj-vonaxkbt femoral disease. Left ARTHUR 0.82, moderate arterial insufficiency. Doppler/PVR waveforms and segmental pressures reveal distal SFA/popliteal disease Unable to assess RT great toe due to bandages/dry gangrene. Ordering Physician: Binh Arndt Referring Physician: Livan Mcfarland Performed By: TIFFANY GARCIA RVT Physical Exam Const alert, oriented x3, no apparent distress and healthy appearing General Appearance: cooperative; Negative for combative or lethargic Orientation / Consciousness: awake Exam Limitations: no limitations HEENT Head and Scalp: normocephalic and atraumatic Eyes EOMs intact bilaterally General Eye: normal appearance of both eyes Neck full ROM General: trachea midline Resp normal respiratory effort and no use of accessory muscles Effort and Inspection: Negative for labored, stridor or audible wheezes Cardio regular rate and regular rhythm Peripheral Pulses: radial pulses present Back/Spine Cervical Spine: cervical ROM normal Extremity full ROM Extremity Narrative: RLE dressing intact Neuro oriented x3, CN's II-XII intact bilaterally and no focal motor deficits Psych thought process normal, cooperative, affect normal, speech normal and activity/motor behavior normal Assessment & Plan Assessment/Plan (1) Atherosclerosis of [place] arteries of extremities with gangrene, right leg: PLAN: -stable dry gangrene -oncology guidance appreciated; poor prognosis from standpoint of his myelodysplastic syndrome -tentative for diagnostic angio Tuesday, but may reconsider pending his goals of care/palliative discussions given prognosis
[2022-07-12] MEDS: Atorvastatin Calcium 10 MG Tablet PO (21:00)
[2022-07-12] MEDS: Tamsulosin HCl 0.4 MG Capsule PO (21:00)
[2022-07-12] MEDS: MELATONIN 3 MG TABLET PO (21:01)
[2022-07-13] VITALS (9 sets, daily range): BP systolic 95–118; BP diastolic 45–63; PULSE 75–86; RESP 14–18; TEMP 36.4–37.4; O2SAT 94–100
[2022-07-13 00:50] LABS: Bedside Glucose 122 mg/dL (74-106)
[2022-07-13 06:56] LABS: Bedside Glucose 78 mg/dL (74-106)
[2022-07-13] MEDS: Glimepiride 2 MG Tablet PO (08:44)
[2022-07-13] MEDS: Juven (unflavored) Packet 1 PACKET PO ×2 (08:44→16:41)
--- NOTE | 2022-07-13 09:42 | PCM.PN.HOSP ---
Subjective Subjective Follow-up diabetic foot ulceration. Patient seen by Dr. Hooks with vascular surgery plans for patient to undergo diagnostic angiogram on 07/14/2022. Objective Data Objective Data Vital Signs: Vital Signs Temp Pulse Resp BP Pulse Ox O2 Del Method O2 Flow Rate 99.3 F H 79 18 114/55 L 94 Nasal Cannula 2 07/13/22 05:40 07/13/22 05:40 07/13/22 05:40 07/13/22 05:40 07/13/22 07:35 07/13/22 07:56 07/13/22 07:56 Oxygen Flow Rate (L/min) 2 Oxygen Delivery Method Nasal Cannula Weight: 98.1 kg Body Mass Index (BMI) 27.7 Intake & Output: Intake and Output for Last 24 Hours 07/11/22 07/12/22 07/13/22 23:59 23:59 23:59 Intake Total 3119.5 / 3119.5 2262.25 / 2262.25 Output Total 4 / 4 Balance 3115.5 / 3115.5 2262.25 / 2262.25 Lab / Micro Data Result Diagrams: 07/12/22 06:13 07/12/22 06:13 Labs: Laboratory Results - last 24 hr 07/12/22 11:33: POC Glucose 133 H 07/12/22 16:23: POC Glucose 132 H 07/12/22 22:37: POC Glucose 122 H 07/13/22 06:18: POC Glucose 78 Micro: Microbiology 07/09/22 18:47 Wound - Left Foot Gram Stain - Final 07/09/22 18:47 Wound - Left Foot Wound Culture - Preliminary Coag Negative Staph Gram positive misa 07/09/22 17:20 Blood Culture (Wb) - Other Blood Culture - Preliminary No growth in 48 hours. 07/09/22 17:55 Blood Culture (Wb) - Port Blood Culture - Preliminary No growth in 48 hours. 07/10/22 18:27 Stool Stool Occult Blood (MARILY) - Final 07/09/22 18:47 Stool Stool Occult Blood (MARILY) - Final Radiography Diagnostic Testing: Radiology Impression Extremity Arterial Study 07/09/22 18:42 Interpretation Summary Right ARHTUR 0.52, severe arterial insufficiency. Doppler/PVR waveforms and segmental pressures reveal usryc-lwsgh-fxfqjfgd femoral disease. Left ARTHUR 0.82, moderate arterial insufficiency. Doppler/PVR waveforms and segmental pressures reveal distal SFA/popliteal disease Unable to assess RT great toe due to bandages/dry gangrene. Ordering Physician: Binh Arndt Referring Physician: Livan Mcfarland Performed By: TIFFANY GARCIA RVT Physical Exam Narrative GENERAL: cooperative HEENT: Atraumatic; normocephalic EYES; Anicteric, Normal Conjunctiva NECK; supple, normal thyroid, RESPIRATORY: Diminished to auscultation CARDIOVASCULAR: Regular S1 S2, GI: soft, normoactive bowel sounds, : No Renal angle tenderness; EXTREMITIES: Right foot in surgical dressing MUSCULOSKELETAL: no muscle wasting NEURO: Awake; no lateralizing signs. SKIN: No Rash PSYCH; Flat affect Assessment & Plan Assessment/Plan (1) Dry gangrene: PLAN: Plan Patient is an 87-year-old gentleman sent from his primary care physician's office to the ED with necrotic right big toe 1. 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 Admitted to regular nursing floor started on broad-spectrum antibiotic therapy with Unasyn. Consultation placed to both vascular surgery as well as podiatry medicine 2. Peripheral arterial disease with known history of SFA/popliteal occlusion ? Patient seen in consultation by Dr. Hooks with vascular disease. Recommended for patient to undergo further vascular surgery prior to any surgical intervention possibly right TMA amputation -07/13/[address] Hooks with vascular surgery plans for patient to undergo diagnostic angiogram on 07/14/2022. 3. Anemia ? Secondary to myelodysplastic syndrome patient seen in consultation by Dr. Redmond notes and recommendations reviewed. Patient is on Revlimid did continue 4. Thrombocytopenia ? Secondary to myelodysplastic syndrome monitoring 5. Diabetes mellitus type 2 with complications including diabetic nephropathy ? Patient is on metformin held on admission placed on Accu-Cheks before meals and at bedtime with sliding scale coverage. Patient was on glimepiride discontinued in view of significant risk for hypoglycemia given patient impaired kidney function 6. Chronic kidney disease stage III ? Secondary to diabetic nephropathy monitoring with daily BMPs 7. History of pulmonary embolism ? Patient was on Eliquis prior to coming in. He had apparently ran out almost 10 days prior to his admission. Severe anemia as well as his anticipated TMA Eliquis was held on admission 8. BPH ? Patient is on tamsulosin did continue 9. Dyslipidemia -Patient is on statin at home did continue 10. Lactic acidosis ? Present on admission secondary to patient being on metformin metformin held on admission 11. Chronic congestive heart failure with preserved ejection fraction ? Currently not in exacerbation we will continue with monitoring Total time spent evaluating patient; 36 min Charges/Coding Visit Charges Inpatient E&M: 99767 Subs Hosp L2
[2022-07-13] MEDS: Glucerna Shake 120 ML LIQUID PO ×4 (09:45→21:54)
[2022-07-13] MEDS: Metoprolol Tartrate 50 MG Tablet PO ×2 (09:46→21:57)
[2022-07-13] MEDS: Cholecalciferol (VIT D3) 25 MCG TABLET (1,000 UNITS) PO ×2 (09:47→22:02)
[2022-07-13] MEDS: Omega-3 Acid Ethyl Esters 1 GM Capsule PO ×2 (09:47→21:55)
[2022-07-13] MEDS: Insulin Lispro 100 UNIT/ML INSULN.PEN SC (10:48)
[2022-07-13 11:21] LABS: Bedside Glucose 158 mg/dL (74-106)
[2022-07-13] MEDS: 0.9% Normal Saline 1,000 ML 75 ML IV (11:38)
[2022-07-13 12:34] LABS: Pathologist Review Reviewed
--- NOTE | 2022-07-13 13:09 | PCM.PROGNOTE ---
Subjective Subjective No new changes today. Denies constitutional's. Denies rest pain. Objective Data Objective Data Vital Signs: Vital Signs Temp Pulse Resp BP Pulse Ox O2 Del Method O2 Flow Rate 97.6 F L 86 14 114/45 L 100 Nasal Cannula 2 07/13/22 09:48 07/13/22 11:16 07/13/22 11:16 07/13/22 09:48 07/13/22 09:48 07/13/22 11:16 07/13/22 11:16 Oxygen Flow Rate (L/min) 2 Oxygen Delivery Method Nasal Cannula Weight: 98.1 kg Body Mass Index (BMI) 27.7 Intake & Output: Intake and Output for Last 24 Hours 07/11/22 07/12/22 07/13/22 23:59 23:59 23:59 Intake Total 3119.5 / 3119.5 2262.25 / 2262.25 1592 / 1592 Output Total 4 / 4 Balance 3115.5 / 3115.5 2262.25 / 2262.25 1592 / 1592 Lab / Micro Data Result Diagrams: 07/12/22 06:13 07/12/22 06:13 Labs: Laboratory Results - last 24 hr 07/09/22 17:20: Diff Path Review Reviewed 07/12/22 16:23: POC Glucose 132 H 07/12/22 22:37: POC Glucose 122 H 07/13/22 06:18: POC Glucose 78 07/13/22 10:47: POC Glucose 158 H Micro: Microbiology 07/09/22 18:47 Wound - Left Foot Gram Stain - Final 07/09/22 18:47 Wound - Left Foot Wound Culture - Preliminary Coag Negative Staph Gram positive misa 07/09/22 17:20 Blood Culture (Wb) - Other Blood Culture - Preliminary No growth in 48 hours. 07/09/22 17:55 Blood Culture (Wb) - Port Blood Culture - Preliminary No growth in 48 hours. 07/10/22 18:27 Stool Stool Occult Blood (MARILY) - Final 07/09/22 18:47 Stool Stool Occult Blood (MARILY) - Final Radiography Diagnostic Testing: Radiology Impression Extremity Arterial Study 07/09/22 18:42 Interpretation Summary Right ARTHUR 0.52, severe arterial insufficiency. Doppler/PVR waveforms and segmental pressures reveal nybrg-wteqn-dkvlbrtn femoral disease. Left ARTHUR 0.82, moderate arterial insufficiency. Doppler/PVR waveforms and segmental pressures reveal distal SFA/popliteal disease Unable to assess RT great toe due to bandages/dry gangrene. Ordering Physician: Binh Arndt Referring Physician: Livan Mcfarland Performed By: TIFFANY GARCIA RVT Physical Exam Const alert, oriented x3 and no apparent distress Constitutional Narrative: Left foot with dry gangrene to the entire 1st toe, there is erythema to the distal forefoot dorsally and some plantarly, there is no fluctuance, no crepitus, no blistering, no visible abscess present; 2nd and 3rd toes are more dusky developing into dry gangrene, DP and PT nonpalpable left foot, there is decreased sensation to the left foot. Assessment & Plan Assessment/Plan (1) Dry gangrene: (2) Other specified peripheral vascular diseases: (3) Other hereditary and idiopathic neuropathies: PLAN: Plan Evaluation performed. Reviewed diagnostic data. We will continue to monitor foot, pending vascular status I believe he will likely at least need a TMA. Patient may require more proximal amputation pending vascular findings. A culture has been obtained left 1st toe. Growing gram positive misa, and CoNeg Staph. The patient is on antibiotic - Unasyn. The site was painted with betadine and a gauze dressing was applied. Avoid weightbearing left forefoot. Vascular planning for possible intervention on 07/14/2022. Patient has myelodysplastic disease and was seen recently by oncology suggesting poor prognosis recommending conservative treatment. We will continue to follow this closely if vascular performance potential innervation invention we will likely proceed with TMA if there is good healing potential, if patient is unable to get revascularization may need more proximal amputation or just local wound care to prevent any acute infection. This was discussed with patient and his family today. Podiatry will continue to follow.
[2022-07-13] MEDS: Acetaminophen 325 MG Tablet 650 MG PO (14:38)
[2022-07-13] MEDS: Menthol/Lanolin/Calamine/Znox 113 GM Tube 1 APPLIC TOPICAL ×2 (14:40→21:55)
[2022-07-13 17:10] LABS: Bedside Glucose 95 mg/dL (74-106)
[2022-07-13] MEDS: Tamsulosin HCl 0.4 MG Capsule PO (21:54)
[2022-07-13] MEDS: Atorvastatin Calcium 10 MG Tablet PO (21:55)
[2022-07-13] MEDS: MELATONIN 3 MG TABLET PO (22:00)
[2022-07-14] VITALS (11 sets, daily range): BP systolic 110–132; BP diastolic 43–62; PULSE 74–85; RESP 16–18; TEMP 36.6–37.6; O2SAT 93–100; BMI 27.7
[2022-07-14 01:06] LABS: Bedside Glucose 124 mg/dL (74-106)
[2022-07-14] MEDS: 0.9% Normal Saline 1,000 ML 75 ML IV ×2 (01:36→17:21)
--- NOTE | 2022-07-14 06:28 | WOUNDNOTE ---
Pt resting in bed. had been up to the BSC and is now back in bed. patient had signed consent for procedure this am. PACKAGE LINE OPERATOR performed the clipper prep to groin and gave chlorhexidine bath. Pt denies needs at this time.
[2022-07-14 06:45] LABS: Bedside Glucose 90 mg/dL (74-106)
[2022-07-14 06:46] LABS: Absolute Lymphocyte Count 1.09 X10^3/uL (0.83-4.51); Absolute Neutrophil Count 0.6 X10^3/uL (2.0-7.7); Basophil# 0.02 X10^3/uL; Basophil% 0.9 % (0-1); Eosinophil# 0.11 X10^3/uL; Eosinophils% 5.1 % (0-5); Hemoglobin 7.1 g/dL (13.0-16.5); Lymphocyte # 1.09 X10^3/ul (0.83-4.51); Lymphocyte % 50.2 % (19-41); Mean Corp Hgb Conc 32.3 g/dL (32-36); Mean Corpuscular Volume 102.3 fL (80-94); Monocyte# 0.37 X10^3/uL; Monocyte% 17.1 % (0-10); NRBC Flagged by Analyzer 0 % (0-5); Neutrophil # 0.55 X10^3/uL (2.7-7.7); Neutrophil % 25.3 % (47-70); POSITIVE COUNT YES; POSITIVE DIFFERENTIAL YES; POSITIVE MORPHOLOGY YES; Platelet Count 58 K/mm3 (150-450); RBC Distribution Width CV 19.6 % (11.6-14.6); RBC Distribution Width SD 72.2 fl (35.1-43.9); Red Blood Count 2.15 M/mm3 (4.6-6.2); White Blood Count 2.2 K/mm3 (4.4-11.0)
[2022-07-14 07:04] LABS: Anion Gap 6 (5-15); BUN 55 mg/dL (7-18); BUN/Creat Ratio 35.3 RATIO (10-20); Calcium,Total 8.1 mg/dL (8.5-10.1); Chloride 112 mmol/L (98-107); Creatinine, Serum 1.56 mg/dL (0.70-1.30); EST Glomerular Filtration Rate 45 mL/min (>60); Est Glom Filt Rate - Afr Amer 55 mL/min (>60); Estimated Creatinine Clearance 40.25 ml/min; Glucose 94 mg/dL (74-106); Potassium 4.4 mmol/L (3.5-5.1); Sodium Level 141 mmol/L (136-145)
[2022-07-14 07:07] LABS: Differential Indicated SCAN CRITERIA MET
[2022-07-14 07:15] LABS: International Normalized Ratio 1.2; Prothrombin Time (Protime)PT. 15.2 SECONDS (11.7-14.9)
[2022-07-14 07:16] LABS: Partial Thromboplast Time 36.5 Seconds (24.1-36.2)
[2022-07-14 07:43] LABS: Anisocytosis 1+; Crenated RBC 1+; Ovalocyte 1+; Schistocytes RARE
--- NOTE | 2022-07-14 10:45 | PCM.PN.HOSP ---
Subjective Subjective Diabetic foot ulcer ? Patient is scheduled to undergo angiography this afternoon. Objective Data Objective Data Vital Signs: Vital Signs Temp Pulse Resp BP Pulse Ox O2 Del Method O2 Flow Rate 97.8 F 74 16 110/48 L 93 Nasal Cannula 2 07/14/22 09:37 07/14/22 09:37 07/14/22 09:37 07/14/22 09:37 07/14/22 09:37 07/14/22 10:26 07/14/22 10:26 Oxygen Flow Rate (L/min) 2 Oxygen Delivery Method Nasal Cannula Weight: 98.1 kg Body Mass Index (BMI) 27.7 Intake & Output: Intake and Output for Last 24 Hours 07/12/22 07/13/22 07/14/22 23:59 23:59 23:59 Intake Total 2262.25 / 2262.25 2624 / 2624 1817.75 / 1817.75 Output Total 200 / 200 Balance 2262.25 / 2262.25 2424 / 2424 1817.75 / 1817.75 Lab / Micro Data Result Diagrams: 07/14/22 06:30 07/14/22 06:30 Labs: Laboratory Results - last 24 hr 07/09/22 17:20: Diff Path Review Reviewed 07/13/22 10:47: POC Glucose 158 H 07/13/22 16:37: POC Glucose 95 07/13/22 22:03: POC Glucose 124 H 07/14/22 06:26: POC Glucose 90 07/14/22 06:30: WBC 2.2 L, RBC 2.15 L, Hgb 7.1 L, Hct 22.0 L, MCV 102.3 H, MCH 33.0 H, MCHC 32.3, RDW Std Deviation 72.2 H, RDW Coeff of Agustina 19.6 H, Plt Count 58 L, Immature Gran % (Auto) 1.400 H, Neut % (Auto) 25.3 L, Lymph % (Auto) 50.2 H, [place] % (Auto) 17.1 H, Eos % (Auto) 5.1 H, Baso % (Auto) 0.9, Absolute Neuts (auto) 0.6 L, Absolute Lymphs (auto) 1.09, Nucleated RBC % 0, Differential Comment , Anisocytosis 1+, Ovalocytes 1+, Crenated Cell 1+, Schistocytes RARE 07/14/22 06:30: PT 15.2 H, INR 1.2, APTT 36.5 H 07/14/22 06:30: Sodium 141, Potassium 4.4, Chloride 112 H, Carbon Dioxide 23.0, Anion Gap 6, BUN 55 H, Creatinine 1.56 H, Estim Creat Clear Calc 40.25, Est GFR (MDRD) Af Amer 55 L, Est GFR (MDRD) Non-Af 45 L, BUN/Creatinine Ratio 35.3 H, Glucose 94, Calcium 8.1 L 07/14/22 06:30: Hemoglobin A1c 6.0 H Micro: Microbiology 07/09/22 18:47 Wound - Left Foot Gram Stain - Final 07/09/22 18:47 Wound - Left Foot Wound Culture - Final Staphylococcus epidermidis Gram positive misa 07/09/22 18:47 Wound - Left Foot Anaerobic Culture - Preliminary 07/09/22 17:20 Blood Culture (Wb) - Other Blood Culture - Preliminary No growth in 48 hours. 07/09/22 17:55 Blood Culture (Wb) - Port Blood Culture - Preliminary No growth in 48 hours. 07/10/22 18:27 Stool Stool Occult Blood (MARILY) - Final 07/09/22 18:47 Stool Stool Occult Blood (MARILY) - Final Physical Exam Narrative GENERAL: cooperative HEENT: Atraumatic; normocephalic EYES; Anicteric, Normal Conjunctiva NECK; supple, normal thyroid, RESPIRATORY: Diminished to auscultation CARDIOVASCULAR: Regular S1 S2, GI: soft, normoactive bowel sounds, : No Renal angle tenderness; EXTREMITIES: Right foot in surgical dressing MUSCULOSKELETAL: no muscle wasting NEURO: Awake; no lateralizing signs. SKIN: No Rash PSYCH; Flat affect Assessment & Plan Assessment/Plan (1) Dry gangrene: PLAN: Plan Patient is an 87-year-old gentleman sent from his primary care physician's office to the ED with necrotic right big toe 1. 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 Admitted to regular nursing floor started on broad-spectrum antibiotic therapy with Unasyn. Consultation placed to both vascular surgery as well as podiatry medicine 2. Peripheral arterial disease with known history of SFA/popliteal occlusion ? Patient seen in consultation by Dr. Hooks with vascular disease. Recommended for patient to undergo further vascular surgery prior to any surgical intervention possibly right TMA amputation -07/13/[address] Hooks with vascular surgery plans for patient to undergo diagnostic angiogram on 07/14/2022. 07/14/2022; diagnostic angiography scheduled for this afternoon. 3. Anemia ? Secondary to myelodysplastic syndrome patient seen in consultation by Dr. Redmond notes and recommendations reviewed. Patient is on Revlimid did continue ? 07/14/2022. Patient hemoglobin continues to drop currently down to 7.1 patient has been typed and screened. Repeat H&H ordered for the afternoon if less than 7 patient will be transfused 4. Thrombocytopenia ? Secondary to myelodysplastic syndrome monitoring 5. Diabetes mellitus type 2 with complications including diabetic nephropathy ? Patient is on metformin held on admission placed on Accu-Cheks before meals and at bedtime with sliding scale coverage. Patient was on glimepiride discontinued in view of significant risk for hypoglycemia given patient impaired kidney function 6. Chronic kidney disease stage III ? Secondary to diabetic nephropathy monitoring with daily BMPs 7. History of pulmonary embolism ? Patient was on Eliquis prior to coming in. He had apparently ran out almost 10 days prior to his admission. Severe anemia as well as his anticipated TMA Eliquis was held on admission 8. BPH ? Patient is on tamsulosin did continue 9. Dyslipidemia -Patient is on statin at home did continue 10. Lactic acidosis ? Present on admission secondary to patient being on metformin metformin held on admission 11. Chronic congestive heart failure with preserved ejection fraction ? Currently not in exacerbation we will continue with monitoring Time spent in the patient's overall evaluation,decision-making process, review of diagnostic data, adjustment of management, discussion with other providers, nursing nursing and ancillary staff involved in patient's care documentation, 40 Minutes Charges/Coding Visit Charges Inpatient E&M: 83504 Subs Hosp L2
--- NOTE | 2022-07-14 15:08 | CHAPLAIN ---
Type of Pastoral Visit _x__ Initial Visit ___ Follow-up Visit ___ On-call Visit ___ General Patient Visit ___ Spiritual Assessment ___ Family Conference ___ Bereavement ___ Rapid Response ___ Code Blue ___ Other (describe below) Pastoral Care Referral From _x__ Patient _x__ Family ___ Nurse ___ Physician ___ Asian Studies Program Chair ___ Pantry Attendant ___ Other (describe below) Sacrament/Intervention _x__ Active listening ___ Anointing ___ Orthodox ___ Bereavement ___ Communion ___ Hanh exploration ___ ___ Life review _x__ Prayer ___ Reconciliation ___ Sacrament of Sick _x__ Supportive presence ___ Wedding ___ Other (describe below) Pastoral Comments patient is in bed with large [facility] blanket; pt explains why he has such a blanket and that family works in the hospital; spouse and daughter are in the room at this time; pt states that his procedure has been postponed until tomorrow and he is getting impatient in waiting; daughter is an RN and gives her thoughts during the visit; pt does welcome a prayer but states nothing else is needed
[2022-07-14] MEDS: Glucerna Shake 120 ML LIQUID PO ×2 (15:15→21:28)
--- NOTE | 2022-07-14 17:06 | PCM.PN.SRG ---
Subjective Subjective No significant changes, patient continues to do okay overall. No new pain, F/C, no other complaints. Objective Data Objective Data A&O x3, NAD RRR Non-labored respirations, able to speak in complete sentences, no acessory muscle use; diminished to auscultation Right foot wrapped, did not visualize Vital Signs: Vital Signs Temp Pulse Resp BP Pulse Ox O2 Del Method O2 Flow Rate 97.9 F 79 16 112/51 L 100 Room Air 2 07/14/22 15:07 07/14/22 15:07 07/14/22 15:07 07/14/22 15:07 07/14/22 15:07 07/14/22 15:07 07/14/22 10:26 Oxygen Flow Rate (L/min) 2 Oxygen Delivery Method Room Air Weight: 216 lb 4.375 oz Body Mass Index (BMI) 27.7 Intake & Output: Intake and Output for Last 24 Hours 07/12/22 07/13/22 07/14/22 23:59 23:59 23:59 Intake Total 2262.25 / 2262.25 2624 / 2624 1929.75 / 1929.75 Output Total 200 / 200 Balance 2262.25 / 2262.25 2424 / 2424 1929.75 / 1929.75 Lab / Micro Data Result Diagrams: 07/14/22 06:30 07/14/22 06:30 Labs: Laboratory Results - last 24 hr 07/13/22 16:37: POC Glucose 95 07/13/22 22:03: POC Glucose 124 H 07/14/22 06:26: POC Glucose 90 07/14/22 06:30: WBC 2.2 L, RBC 2.15 L, Hgb 7.1 L, Hct 22.0 L, MCV 102.3 H, MCH 33.0 H, MCHC 32.3, RDW Std Deviation 72.2 H, RDW Coeff of Agustina 19.6 H, Plt Count 58 L, Immature Gran % (Auto) 1.400 H, Neut % (Auto) 25.3 L, Lymph % (Auto) 50.2 H, [place] % (Auto) 17.1 H, Eos % (Auto) 5.1 H, Baso % (Auto) 0.9, Absolute Neuts (auto) 0.6 L, Absolute Lymphs (auto) 1.09, Nucleated RBC % 0, Differential Comment , Anisocytosis 1+, Ovalocytes 1+, Crenated Cell 1+, Schistocytes RARE 07/14/22 06:30: PT 15.2 H, INR 1.2, APTT 36.5 H 07/14/22 06:30: Sodium 141, Potassium 4.4, Chloride 112 H, Carbon Dioxide 23.0, Anion Gap 6, BUN 55 H, Creatinine 1.56 H, Estim Creat Clear Calc 40.25, Est GFR (MDRD) Af Amer 55 L, Est GFR (MDRD) Non-Af 45 L, BUN/Creatinine Ratio 35.3 H, Glucose 94, Calcium 8.1 L 07/14/22 06:30: Hemoglobin A1c 6.0 H Micro: Microbiology 07/09/22 18:47 Wound - Left Foot Gram Stain - Final 07/09/22 18:47 Wound - Left Foot Wound Culture - Final Staphylococcus epidermidis Gram positive misa 07/09/22 18:47 Wound - Left Foot Anaerobic Culture - Preliminary 07/09/22 17:20 Blood Culture (Wb) - Other Blood Culture - Preliminary No growth in 48 hours. 07/09/22 17:55 Blood Culture (Wb) - Port Blood Culture - Preliminary No growth in 48 hours. 07/10/22 18:27 Stool Stool Occult Blood (MARILY) - Final 07/09/22 18:47 Stool Stool Occult Blood (MARILY) - Final Assessment & Plan Assessment/Plan (1) Atherosclerosis of [place] arteries of extremities with gangrene, right leg: PLAN: Plan Stable dry gangrene, being managed by Dr. Chowdhury. Discussed with patient and family at bedside reason for delay of procedure. They were understanding and still agreeable to proceed with diagnostic angiogram tomorrow. Okay to eat some dinner today. Eliquis still being held. NPO after midnight for procedure tomorrow. Charges/Coding Visit Charges Inpatient E&M: 92268 Subs Hosp L1
[2022-07-14] MEDS: Menthol/Lanolin/Calamine/Znox 113 GM Tube 1 APPLIC TOPICAL (21:27)
[2022-07-14] MEDS: Omega-3 Acid Ethyl Esters 1 GM Capsule PO (21:28)
[2022-07-14] MEDS: Atorvastatin Calcium 10 MG Tablet PO (21:28)
[2022-07-14] MEDS: Cholecalciferol (VIT D3) 25 MCG TABLET (1,000 UNITS) PO (21:28)
[2022-07-14] MEDS: Tamsulosin HCl 0.4 MG Capsule PO (21:28)
[2022-07-14] MEDS: Metoprolol Tartrate 50 MG Tablet PO (21:28)
[2022-07-14] MEDS: Insulin Lispro 100 UNIT/ML INSULN.PEN SC (21:35)
[2022-07-14 22:25] LABS: Bedside Glucose 155 mg/dL (74-106)
[2022-07-15] VITALS (18 sets, daily range): BP systolic 122–145; BP diastolic 53–104; PULSE 74–91; RESP 14–18; TEMP 36.4–36.9; O2SAT 88–100; BMI 27.7
[2022-07-15 06:09] LABS: Absolute Lymphocyte Count 1.47 X10^3/uL (0.83-4.51); Absolute Neutrophil Count 0.5 X10^3/uL (2.0-7.7); Basophil# 0.05 X10^3/uL; Basophil% 1.9 % (0-1); Eosinophil# 0.11 X10^3/uL; Eosinophils% 4.1 % (0-5); Hemoglobin 7.6 g/dL (13.0-16.5); Lymphocyte # 1.47 X10^3/ul (0.83-4.51); Lymphocyte % 55.3 % (19-41); Mean Corp Hgb Conc 30.4 g/dL (32-36); Mean Corpuscular Hgb 31.3 pg (27.0-32.0); Mean Corpuscular Volume 102.9 fL (80-94); Monocyte# 0.46 X10^3/uL; Monocyte% 17.3 % (0-10); NRBC Flagged by Analyzer 0.8 % (0-5); Neutrophil # 0.53 X10^3/uL (2.7-7.7); Neutrophil % 19.9 % (47-70); POSITIVE COUNT YES; POSITIVE DIFFERENTIAL YES; POSITIVE MORPHOLOGY YES; Platelet Count 61 K/mm3 (150-450); RBC Distribution Width CV 19.3 % (11.6-14.6); RBC Distribution Width SD 71.7 fl (35.1-43.9); Red Blood Count 2.43 M/mm3 (4.6-6.2); White Blood Count 2.7 K/mm3 (4.4-11.0)
--- NOTE | 2022-07-15 06:32 | EKG12_ITS ---
Test Reason : AM EKG Blood Pressure : / mmHG Vent. Rate : 077 BPM Atrial Rate : 077 BPM P-R Int : 188 ms QRS Dur : 114 ms QT Int : 398 ms P-R-T Axes : 043 -39 063 degrees QTc Int : 450 ms Normal sinus rhythm Left axis deviation Abnormal ECG When compared with ECG of 14-JUL-2022 05:31, No significant change was found Confirmed by SHERYL MARES, ANNETTA ([id number]), editor trade journal MARCELLA KUHN ([id number]) on 07/22/2022 1:58:28 PM Referred By: Confirmed By:CARLOS SAUCEDO MD
[2022-07-15 06:35] LABS: Anion Gap 7 (5-15); BUN 42 mg/dL (7-18); BUN/Creat Ratio 27.5 RATIO (10-20); Calcium,Total 8.5 mg/dL (8.5-10.1); Chloride 112 mmol/L (98-107); Creatinine, Serum 1.53 mg/dL (0.70-1.30); EST Glomerular Filtration Rate 46 mL/min (>60); Est Glom Filt Rate - Afr Amer 56 mL/min (>60); Estimated Creatinine Clearance 41.04 ml/min; Glucose 120 mg/dL (74-106); Potassium 4.7 mmol/L (3.5-5.1); Sodium Level 140 mmol/L (136-145)
[2022-07-15 06:36] LABS: Differential Indicated SCAN CRITERIA MET
[2022-07-15 07:05] LABS: Anisocytosis 2+; Platelet Estimate MOD DEC (ADEQ)
[2022-07-15 07:20] LABS: Bedside Glucose 123 mg/dL (74-106)
--- NOTE | 2022-07-15 07:59 | CPS ---
patient weaned to 2 lpm.
--- NOTE | 2022-07-15 08:00 | CPS ---
patient increased to 3 lpm.
--- NOTE | 2022-07-15 10:11 | PN.HOSP_ITS ---
Subjective Subjective Follow-up diabetic foot ulcer Patient is scheduled to undergo diagnostic angiogram this morning Objective Data Objective Data Vital Signs: Vital Signs Temp Pulse Resp BP Pulse Ox O2 Del Method O2 Flow Rate 98.1 F 81 17 122/53 H 88 Nasal Cannula 2 07/15/22 04:00 07/15/22 04:00 07/15/22 04:00 07/15/22 04:00 07/15/22 08:00 07/15/22 08:00 07/15/22 08:00 Oxygen Flow Rate (L/min) 2 Oxygen Delivery Method Nasal Cannula Weight: 98.1 kg Body Mass Index (BMI) 27.7 Intake & Output: Intake and Output for Last 24 Hours 07/13/22 07/14/22 07/15/22 23:59 23:59 23:59 Intake Total 2624 / 2624 2449.25 / 2449.25 224 / 224 Output Total 200 / 200 400 / 400 Balance 2424 / 2424 2049.25 / 2049.25 224 / 224 Lab / Micro Data Result Diagrams: 07/15/22 05:55 07/15/22 05:55 Labs: Laboratory Results - last 24 hr 07/14/22 21:35: POC Glucose 155 H 07/15/22 05:55: WBC 2.7 L, RBC 2.43 L, Hgb 7.6 L, Hct 25.0 L, MCV 102.9 H, MCH 31.3, MCHC 30.4 L D, RDW Std Deviation 71.7 H, RDW Coeff of Agustina 19.3 H, Plt Count 61 L, Immature Gran % (Auto) 1.500 H, Neut % (Auto) 19.9 L, Lymph % (Auto) 55.3 H, [place] % (Auto) 17.3 H, Eos % (Auto) 4.1, Baso % (Auto) 1.9 H, Absolute Neuts (auto) 0.5 L, Absolute Lymphs (auto) 1.47, Nucleated RBC % 0.8, Platelet Estimate MOD DEC, Anisocytosis 2+ 07/15/22 05:55: Sodium 140, Potassium 4.7, Chloride 112 H, Carbon Dioxide 21.0, Anion Gap 7, BUN 42 H, Creatinine 1.53 H, Estim Creat Clear Calc 41.04, Est GFR (MDRD) Af Amer 56 L, Est GFR (MDRD) Non-Af 46 L, BUN/Creatinine Ratio 27.5 H, Glucose 120 H, Calcium 8.5 07/15/22 06:47: POC Glucose 123 H Micro: Microbiology 07/09/22 17:20 Blood Culture (Wb) - Other Blood Culture - Final No growth in 5 days. 07/09/22 18:47 Wound - Left Foot Gram Stain - Final 07/09/22 18:47 Wound - Left Foot Wound Culture - Final Staphylococcus epidermidis Gram positive misa 07/09/22 18:47 Wound - Left Foot Anaerobic Culture - Preliminary 07/09/22 17:55 Blood Culture (Wb) - Port Blood Culture - Preliminary No growth in 48 hours. 07/10/22 18:27 Stool Stool Occult Blood (MARILY) - Final 07/09/22 18:47 Stool Stool Occult Blood (MARILY) - Final Physical Exam Narrative GENERAL: cooperative HEENT: Atraumatic; normocephalic EYES; Anicteric, Normal Conjunctiva NECK; supple, normal thyroid, RESPIRATORY: Diminished to auscultation CARDIOVASCULAR: Regular S1 S2, GI: soft, normoactive bowel sounds, : No Renal angle tenderness; EXTREMITIES: Right foot in surgical dressing MUSCULOSKELETAL: no muscle wasting NEURO: Awake; no lateralizing signs. SKIN: No Rash PSYCH; Flat affect Assessment & Plan Assessment/Plan (1) Dry gangrene: PLAN: Plan Patient is an 87-year-old gentleman sent from his primary care physician's office to the ED with necrotic right big toe 1. 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 Admitted to regular nursing floor started on broad-spectrum antibiotic therapy with Unasyn. Consultation placed to both vascular surgery as well as podiatry medicine 2. Peripheral arterial disease with known history of SFA/popliteal occlusion ? Patient seen in consultation by Dr. Hooks with vascular disease. Recommended for patient to undergo further vascular surgery prior to any surgical interventi on possibly right TMA amputation -07/13/[address] Hooks with vascular surgery plans for patient to undergo diagnostic angiogram on 07/14/2022. 07/14/2022; diagnostic angiography scheduled for this afternoon. 07/15/2022; patient diagnostic angiography was rescheduled for today 07/15/2022 3. Anemia ? Secondary to myelodysplastic syndrome patient seen in consultation by Dr. Isckarus notes and recommendations reviewed. Patient is on Revlimid did continue ? 07/14/2022. Patient hemoglobin continues to drop currently down to 7.1 patient has been typed and screened. Repeat H&H ordered for the afternoon if less than 7 patient will be transfused 4. Thrombocytopenia ? Secondary to myelodysplastic syndrome monitoring 5. Diabetes mellitus type 2 with complications including diabetic nephropathy ? Patient is on metformin held on admission placed on Accu-Cheks before meals and at bedtime with sliding scale coverage. Patient was on glimepiride discontinued in view of significant risk for hypoglycemia given patient impaired kidney function 6. Chronic kidney disease stage III ? Secondary to diabetic nephropathy monitoring with daily BMPs 7. History of pulmonary embolism ? Patient was on Eliquis prior to coming in. He had apparently ran out almost 10 days prior to his admission. Severe anemia as well as his anticipated TMA Eliquis was held on admission 8. BPH ? Patient is on tamsulosin did continue 9. Dyslipidemia -Patient is on statin at home did continue 10. Lactic acidosis ? Present on admission secondary to patient being on metformin metformin held on admission 11. Chronic congestive heart failure with preserved ejection fraction ? Currently not in exacerbation we will continue with monitoring Time spent in the patient's overall evaluation,decision-making process, review of diagnostic data, adjustment of management, discussion with other providers, nursing nursing and ancillary staff involved in patient's care documentation, 40 Minutes Charges/Coding Visit Charges Inpatient E&M: 33203 Subs Hosp L2
[2022-07-15] MEDS: Menthol/Lanolin/Calamine/Znox 113 GM Tube 1 APPLIC TOPICAL ×2 (11:00→21:43)
[2022-07-15] MEDS: 0.9% Normal Saline 1,000 ML 75 ML IV (11:06)
--- NOTE | 2022-07-15 12:38 | PCM.PROGNOTE ---
Subjective Subjective No changes today. Denies constitutional Objective Data Objective Data Vital Signs: Vital Signs Temp Pulse Resp BP Pulse Ox O2 Del Method O2 Flow Rate 98.1 F 80 18 123/76 H 97 Nasal Cannula 2 07/15/22 10:50 07/15/22 12:05 07/15/22 11:35 07/15/22 12:05 07/15/22 12:05 07/15/22 12:05 07/15/22 12:05 Oxygen Flow Rate (L/min) 2 Oxygen Delivery Method Nasal Cannula Weight: 98.1 kg Body Mass Index (BMI) 27.7 Intake & Output: Intake and Output for Last 24 Hours 07/13/22 07/14/22 07/15/22 23:59 23:59 23:59 Intake Total 2624 / 2624 2449.25 / 2449.25 1222.75 / 1222.75 Output Total 200 / 200 400 / 400 Balance 2424 / 2424 2049.25 / 2049.25 1222.75 / 1222.75 Lab / Micro Data Result Diagrams: 07/15/22 05:55 07/15/22 05:55 Labs: Laboratory Results - last 24 hr 07/14/22 21:35: POC Glucose 155 H 07/15/22 05:55: WBC 2.7 L, RBC 2.43 L, Hgb 7.6 L, Hct 25.0 L, MCV 102.9 H, MCH 31.3, MCHC 30.4 L D, RDW Std Deviation 71.7 H, RDW Coeff of Agustina 19.3 H, Plt Count 61 L, Immature Gran % (Auto) 1.500 H, Neut % (Auto) 19.9 L, Lymph % (Auto) 55.3 H, [place] % (Auto) 17.3 H, Eos % (Auto) 4.1, Baso % (Auto) 1.9 H, Absolute Neuts (auto) 0.5 L, Absolute Lymphs (auto) 1.47, Nucleated RBC % 0.8, Platelet Estimate MOD DEC, Anisocytosis 2+ 07/15/22 05:55: Sodium 140, Potassium 4.7, Chloride 112 H, Carbon Dioxide 21.0, Anion Gap 7, BUN 42 H, Creatinine 1.53 H, Estim Creat Clear Calc 41.04, Est GFR (MDRD) Af Amer 56 L, Est GFR (MDRD) Non-Af 46 L, BUN/Creatinine Ratio 27.5 H, Glucose 120 H, Calcium 8.5 07/15/22 06:47: POC Glucose 123 H Micro: Microbiology 07/09/22 17:55 Blood Culture (Wb) - Port Blood Culture - Final No growth in 5 days. 07/09/22 17:20 Blood Culture (Wb) - Other Blood Culture - Final No growth in 5 days. 07/09/22 18:47 Wound - Left Foot Gram Stain - Final 07/09/22 18:47 Wound - Left Foot Wound Culture - Final Staphylococcus epidermidis Gram positive misa 07/09/22 18:47 Wound - Left Foot Anaerobic Culture - Preliminary 07/10/22 18:27 Stool Stool Occult Blood (MARILY) - Final 07/09/22 18:47 Stool Stool Occult Blood (MARILY) - Final Physical Exam Const alert, oriented x3 and no apparent distress Constitutional Narrative: Left foot with dry gangrene to the entire 1st toe, there is erythema to the distal forefoot dorsally and some plantarly, there is no fluctuance, no crepitus, no blistering, no visible abscess present; 2nd and 3rd toes are more dusky developing into dry gangrene, DP and PT nonpalpable left foot, there is decreased sensation to the left foot. Assessment & Plan Assessment/Plan (1) Dry gangrene: (2) Other specified peripheral vascular diseases: (3) Other hereditary and idiopathic neuropathies: PLAN: Plan Evaluation performed. Reviewed diagnostic data. Patient undergoing angiogram today. Due to myelodysplastic syndrome and poor prognosis. Likely will proceed with conservative management of the patient's peripheral arterial disease meaning we will defer any amputation at this time and provide local wound care to ensure the site does not become infected. I recommend daily dressings with Betadine and nonadherent dressing DSD. Patient can weight-bear to the right lower extremity to his heel in a surgical shoe assisted by walker. Will continue to follow closely to ensure no additional breakdown occurs. A culture has been obtained left 1st toe. Growing gram positive misa, and CoNeg Staph. The patient is on antibiotic - Unasyn. The site was painted with betadine and a gauze dressing was applied. This was discussed with patient and his family today. Podiatry will continue to follow.
[2022-07-15 12:55] LABS: Bedside Glucose 115 mg/dL (74-106)
--- NOTE | 2022-07-15 13:45 | OP.PCM_ITS ---
Report of Operation Date of Procedure: 07/15/22 Pre-Operative Diagnosis: atherosclerosis with gangrene of right lower extremity Post-Operative Diagnosis: same Surgery/Procedure Performed:: aortogram, right lower extremity runoff Description of Surgical Findings:: SFA/popliteal occlusion, peroneal best reconstituted vessel; both AT and PT reconstitute Surgeon: Theo Hooks Type of Anesthesia: Local and Sedation,Conscious Estimated Blood Loss (mL): 5 Description of Procedure: HPI: Patient is an 87-year-old male with known peripheral vascular disease with previous angiogram approximately 2 years prior revealing SFA popliteal occlusion with reconstitution of primarily the peroneal artery. He has a history of multiple prior bypasses and percutaneous interventions, but nothing within the last several years. He presented with new onset of right foot digit gangrene that is progressed over the last 2 months. He has significant complicating medical history with myelodysplastic syndrome with pretty severe anemia and thrombocytopenia requiring transfusions. He also has chronic kidney disease which limits contrast usage. Description of procedure: Upon obtaining form consent and verification correct patient procedure site patient was taken the Emergency Care Tech where he was positioned prepped and draped in usual sterile fashion. Timeout was then performed and conscious sedation administered Versed and fentanyl. Skin over the left common femoral artery was anesthetized 1% lidocaine and the vessel accessed in retr ograde fashion using micropuncture needle and wire under ultrasound guidance. This then was then exchanged out for micropuncture sheath through which injection femoral angiogram was performed. Satisfactory location with no extravasation or dissection. Through this Bentson wire was advanced and the micropuncture sheath exchanged out for a short 5 Russian sheath. Through the 5 Russian sheath a Omni Flush catheter was advanced abdominal aorta and digital traction aortogram pelvic angiogram performed with CO2. We then navigated the contralateral iliac system with the Omni Flush catheter and Glidewire advancing our catheter into the distal external iliac artery. This position sequential right lower extremity subtraction angiography was performed using combination of CO2 and traditional iodinated contrast. After satisfactory images were acquired the catheter was withdrawn and a 5 Russian minx deployed followed by 2 minutes of manual pressure. At the inclusion the case patient was awakened with sedation taken to the PCU for recovery. Radiographic interpretation: Abdominal aorta normal caliber with diffuse calcified atherosclerosis. Left common and external leg artery patent with moderate diffuse calcified atherosclerosis but no significant stenosis. Right common iliac artery patent with diffuse calcified atherosclerosis but no stenosis, right external artery patent with moderate diffuse calcified atherosclerosis with mild stenosis at the mid segment of the vessel. Right profundofemoral artery patent with no significant stenosis. Right superficial femoral artery occluded at its origin with continued occlusion throughout the popliteal artery. There is reconstitution of what appeared to be the peroneal artery in the proximal lower leg and the ventral reconstitution of the anterior tibial and peroneal posterior tibial arteries as well.
[2022-07-15] MEDS: Insulin Lispro 100 UNIT/ML INSULN.PEN SC (16:25)
[2022-07-15] MEDS: Juven (unflavored) Packet 1 PACKET PO (16:26)
[2022-07-15 17:31] LABS: Bedside Glucose 151 mg/dL (74-106)
[2022-07-15] MEDS: Glucerna Shake 120 ML LIQUID PO (21:41)
[2022-07-15 21:42] LABS: Haptoglobin 250 mg/dL (38-329)
[2022-07-15] MEDS: Metoprolol Tartrate 50 MG Tablet PO (21:42)
[2022-07-15] MEDS: Cholecalciferol (VIT D3) 25 MCG TABLET (1,000 UNITS) PO (21:42)
[2022-07-15] MEDS: Omega-3 Acid Ethyl Esters 1 GM Capsule PO (21:42)
[2022-07-15] MEDS: Atorvastatin Calcium 10 MG Tablet PO (21:42)
[2022-07-15] MEDS: Tamsulosin HCl 0.4 MG Capsule PO (21:43)
[2022-07-15 22:45] LABS: Bedside Glucose 144 mg/dL (74-106)
[2022-07-16] VITALS (10 sets, daily range): BP systolic 122–125; BP diastolic 47–57; PULSE 75–87; RESP 16–20; TEMP 36.6–37.2; O2SAT 91–96
[2022-07-16] MEDS: 0.9% Normal Saline 1,000 ML 75 ML IV ×2 (00:14→17:26)
[2022-07-16 06:50] LABS: Bedside Glucose 123 mg/dL (74-106)
[2022-07-16] MEDS: Glimepiride 2 MG Tablet PO (08:46)
[2022-07-16] MEDS: Cholecalciferol (VIT D3) 25 MCG TABLET (1,000 UNITS) PO ×2 (08:46→21:43)
[2022-07-16] MEDS: Omega-3 Acid Ethyl Esters 1 GM Capsule PO ×2 (08:46→21:44)
[2022-07-16] MEDS: Juven (unflavored) Packet 1 PACKET PO ×2 (08:47→17:24)
[2022-07-16] MEDS: Glucerna Shake 120 ML LIQUID PO ×2 (08:50→21:41)
[2022-07-16] MEDS: Menthol/Lanolin/Calamine/Znox 113 GM Tube 1 APPLIC TOPICAL ×2 (08:53→21:42)
--- NOTE | 2022-07-16 10:18 | PCM.PN.HOSP ---
Subjective Subjective Follow-up diabetic foot ulcer Patient underwent aortogram, right lower extremity runoff findings included SFA/popliteal occlusion, peroneal best reconstituted vessel; both AT and PT reconstituted nonsurgical management recommended for now. Consult subsequently placed to ID to advise on antibiotic therapy and discharge Objective Data Objective Data Vital Signs: Vital Signs Temp Pulse Resp BP Pulse Ox O2 Del Method O2 Flow Rate 97.9 F 87 16 125/57 H 91 Room Air 1 07/16/22 08:43 07/16/22 08:43 07/16/22 08:43 07/16/22 08:43 07/16/22 09:12 07/16/22 09:56 07/16/22 08:43 Oxygen Flow Rate (L/min) 1 Oxygen Delivery Method Room Air Weight: 98.1 kg Body Mass Index (BMI) 27.7 Intake & Output: Intake and Output for Last 24 Hours 07/14/22 07/15/22 07/16/22 23:59 23:59 23:59 Intake Total 2449.25 / 2449.25 1566.75 / 1806.75 1799 / 1799 Output Total 400 / 400 300 / 300 Balance 2049.25 / 2049.25 1566.75 / 1506.75 1499 / 1499 Lab / Micro Data Result Diagrams: 07/15/22 05:55 07/15/22 05:55 Labs: Laboratory Results - last 24 hr 07/11/22 05:39: Haptoglobin 250 07/15/22 12:25: POC Glucose 115 H 07/15/22 16:23: POC Glucose 151 H 07/15/22 21:37: POC Glucose 144 H 07/16/22 06:31: POC Glucose 123 H Micro: Microbiology 07/09/22 18:47 Wound - Left Foot Gram Stain - Final 07/09/22 18:47 Wound - Left Foot Wound Culture - Final Staphylococcus epidermidis Gram positive misa 07/09/22 18:47 Wound - Left Foot Anaerobic Culture - Final Anaerobic cocci Bacteroides ovatus Clostridium group Porphyromonas species 07/09/22 17:55 Blood Culture (Wb) - Port Blood Culture - Final No growth in 5 days. 07/09/22 17:20 Blood Culture (Wb) - Other Blood Culture - Final No growth in 5 days. 07/10/22 18:27 Stool Stool Occult Blood (MARILY) - Final 07/09/22 18:47 Stool Stool Occult Blood (MARILY) - Final Physical Exam Narrative GENERAL: cooperative HEENT: Atraumatic; normocephalic EYES; Anicteric, Normal Conjunctiva NECK; supple, normal thyroid, RESPIRATORY: Diminished to auscultation CARDIOVASCULAR: Regular S1 S2, GI: soft, normoactive bowel sounds, : No Renal angle tenderness; EXTREMITIES: Right foot in surgical dressing MUSCULOSKELETAL: no muscle wasting NEURO: Awake; no lateralizing signs. SKIN: No Rash PSYCH; Flat affect Assessment & Plan Assessment/Plan (1) Dry gangrene: PLAN: Plan Patient is an 87-year-old gentleman sent from his primary care physician's office to the ED with necrotic right big toe 1. 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 Admitted to regular nursing floor started on broad-spectrum antibiotic therapy with Unasyn. Consultation placed to both vascular surgery as well as podiatry medicine -07/16/2022 patient underwent aortogram, right lower extremity runoff findings included SFA/popliteal occlusion, peroneal best reconstituted vessel; both AT and PT reconstituted nonsurgical management recommended for now. Consult subsequently placed to ID to advise on antibiotic therapy and discharge 2. Peripheral arterial disease with known history of SFA/popliteal occlusion ? Patient seen in consultation by Dr. Hooks with vascular disease. Recommended for patient to undergo further vascular surgery prior to any surgical intervention possibly right TMA amputation -07/13/[address] Hooks with vascular surgery plans for patient to undergo diagnostic angiogram on 07/14/2022. 07/14/2022; diagnostic angiography scheduled for this afternoon. 07/15/2022; patient diagnostic angiography was rescheduled for today 07/15/2022 3. Anemia ? Secondary to myelodysplastic syndrome patient seen in consultation by Dr. Redmond notes and recommendations reviewed. Patient is on Revlimid did continue ? 07/14/2022. Patient hemoglobin continues to drop currently down to 7.1 patient has been typed and screened. Repeat H&H ordered for the afternoon if less than 7 patient will be transfused 4. Thrombocytopenia ? Secondary to myelodysplastic syndrome monitoring 5. Diabetes mellitus type 2 with complications including diabetic nephropathy ? Patient is on metformin held on admission placed on Accu-Cheks before meals and at bedtime with sliding scale coverage. Patient was on glimepiride discontinued in view of significant risk for hypoglycemia given patient impaired kidney function 6. Chronic kidney disease stage III ? Secondary to diabetic nephropathy monitoring with daily BMPs 7. History of pulmonary embolism ? Patient was on Eliquis prior to coming in. He had apparently ran out almost 10 days prior to his admission. Severe anemia as well as his anticipated TMA Eliquis was held on admission 8. BPH ? Patient is on tamsulosin did continue 9. Dyslipidemia -Patient is on statin at home did continue 10. Lactic acidosis ? Present on admission secondary to patient being on metformin metformin held on admission 11. Chronic congestive heart failure with preserved ejection fraction ? Currently not in exacerbation we will continue with monitoring Time spent in the patient's overall evaluation,decision-making process, review of diagnostic data, adjustment of management, discussion with other providers, nursing nursing and ancillary staff involved in patient's care documentation, 42 Minutes Charges/Coding Visit Charges Inpatient E&M: 29882 Subs Hosp L2
--- NOTE | 2022-07-16 10:45 | CON.PCM.ID_ITS ---
Assessment & Plan Assessment/Plan (1) MDS (myelodysplastic syndrome): (2) Pancytopenia: (3) Dry gangrene: PLAN: Wound cx with MRSE and anaerobes. Had fever 101.3 on 07/11. Now with neutropenia, worsened today. On unasyn. Will add vanc in meantime. Plan for discharge would be for 7-10 days po doxy 100mg bid and augmentin 875mg bid. Will follow, thank you HPI Consult Data Date of Consult: 07/16/22 HPI Narrative Reason for Consultation: gangrene HPI Narrative: RANULFO NEGRETE, is a 87 M with MDS, DM, bladder cancer, presented 07/09 with about 1-2 weeks progressive R foot pain, swelling, and toes turning black. No inciting event. Mild pain. No fever or chills. No n/v/d. No recent abx. Admitted here, seen by vascular, heme, and podiatry. Has been on unasyn. Had fever 07/11. Now with worsening neutropenia, feeling ok. Full ROS performed and neg except as noted above. [facility] Medical History Atherosclerosis of coronary artery of [place] heart without angina pectoris Atherosclerosis of [place] artery of both lower extremities with intermittent claudication Basal cell carcinoma of right forearm Bilateral pulmonary embolism (01/2019) Bladder cancer Chemotherapy management, encounter for Diabetes Discoloration of skin Dysuria Encounter for education Essential (primary) hypertension Fall Former smoker Hematuria, gross Hyperlipidemia Injury of back Large B-cell lymphoma Low back pain Lower urinary tract symptoms Lymphoma MDS (myelodysplastic syndrome) Obesity Pancytopenia Peripheral vascular occlusive disease Prostate disease Recurrent right inguinal hernia Right inguinal hernia Right leg pain Scrotal abscess Secondary pulmonary arterial hypertension Sleep apnea 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 artery Thyromegaly Type 2 diabetes mellitus Venous insufficiency (chronic) (peripheral) VTE (venous thromboembolism) Wears dentures Home Medications lisinopril 20 mg tablet 20 mg PO BID Blood pressure 04/05/18 [History Last Taken 07/08/22] lovastatin 40 mg tablet 40 mg PO QHS CHOLESTEROL 04/05/18 [History Last Taken 07/08/22] metformin 1,000 mg tablet 1,000 mg PO BID DIABETES 04/05/18 [History Last Taken 07/08/22] omega-3 fatty acids-fish oil 340 mg-1,000 mg capsule 1 cap PO BID SUPPLEMENT 04/10/18 [History Last Taken 07/09/22] tamsulosin 0.4 mg capsule 0.4 mg PO QHS URINE FLOW 09/08/18 [History Last Taken 07/08/22] metoprolol tartrate 50 mg tablet 50 mg PO BID blood pressure 09/19/18 [History Last Taken 07/09/22] cholecalciferol (vitamin D3) 25 mcg (1,000 unit) tablet 25 mcg PO BID supplement 01/24/19 [History Last Taken 07/08/22] lidocaine-prilocaine 2.5 %-2.5 % topical cream 1 applic topical ONCE PRN port ac cess 30 days #30 grams 05/20/21 [Rx Last Taken Unknown] glimepiride 1 mg tablet 2 mg PO DAILY dm 06/01/21 [History Last Taken 07/09/22] apixaban 2.5 mg tablet (Eliquis) 2.5 mg PO BID blood thinner 12/21/21 [History Last Taken 1 Week Ago ~07/02/22] lenalidomide 10 mg capsule (Revlimid) 10 mg PO DAILY Check with primary doctor 07/09/22 [History Last Taken 07/08/22] Allergy/AdvReac Type Severity Reaction Status Date / Time No Known Allergies Allergy Verified 07/09/22 14:53 Family History Sister Breast cancer Diabetes Mother Diabetes Brother Heart disease Hypertension Surgical History Femoral-popliteal bypass graft occlusion, right H/O coronary artery bypass surgery (2006) H/O hernia repair History of appendectomy History of bladder surgery (09/2019) History of cataract extraction History of femoral angiogram (11/21/12) History of herniorrhaphy History of right-sided carotid endarterectomy History of tonsillectomy and adenoidectomy History of transurethral destruction of bladder lesion (12/2018) Hx of lymph node biopsy Social History Smoking Status: Former smoker how long ago did patient quit smokin years ago alcohol intake: current alcohol intake frequency: a few times a week substance use type: does not use caffeine: Yes Type: coffee Number of servings: 2 lars/episcopal: None seatbelt use: always do you feel safe at home: Yes Physical Exam Const alert, oriented x3 and no apparent distress General Appearance: cooperative HEENT normocephalic and head/scalp atraumatic Eyes PERRL and EOMs intact bilaterally Neck nuchal rigidity and No nodes Resp normal air movement and clear to auscultation bilaterally Cardio regular rate and regular rhythm GI soft to palpation, non-tender and non-distended Extremity General Extremity: Negative for edema Skin Skin Narrative: Reviewed photos. R toes black. Neuro CN's II-XII intact bilaterally Medical Records Data Attestation: I reviewed the patient's medical records Lab / Micro Data Result Diagrams: 07/15/22 05:55 07/15/22 05:55 Labs: Laboratory Results - last 24 hr 07/11/22 05:39: Haptoglobin 250 07/15/22 12:25: POC Glucose 115 H 07/15/22 16:23: POC Glucose 151 H 07/15/22 21:37: POC Glucose 144 H 07/16/22 06:31: POC Glucose 123 H Micro: Microbiology 07/09/22 18:47 Wound - Left Foot Gram Stain - Final 07/09/22 18:47 Wound - Left Foot Wound Culture - Final Staphylococcus epidermidis Gram positive misa 07/09/22 18:47 Wound - Left Foot Anaerobic Culture - Final Anaerobic cocci Bacteroides ovatus Clostridium group Porphyromonas species 07/09/22 17:55 Blood Culture (Wb) - Port Blood Culture - Final No growth in 5 days. 07/09/22 17:20 Blood Culture (Wb) - Other Blood Culture - Final No growth in 5 days.
--- NOTE | 2022-07-16 11:21 | PN_ITS ---
Subjective Subjective No changes today. Denies constitutional. Angiogram yesterday without intervention. No new complaints overnight. Objective Data Objective Data Vital Signs: Vital Signs Temp Pulse Resp BP Pulse Ox O2 Del Method O2 Flow Rate 97.9 F 87 16 125/57 H 91 Room Air 1 07/16/22 08:43 07/16/22 08:43 07/16/22 08:43 07/16/22 08:43 07/16/22 09:12 07/16/22 09:56 07/16/22 08:43 Oxygen Flow Rate (L/min) 1 Oxygen Delivery Method Room Air Weight: 98.1 kg Body Mass Index (BMI) 27.7 Intake & Output: Intake and Output for Last 24 Hours 07/14/22 07/15/22 07/16/22 23:59 23:59 23:59 Intake Total 2449.25 / 2449.25 1566.75 / 1806.75 1799 / 1799 Output Total 400 / 400 300 / 300 Balance 2049.25 / 2049.25 1566.75 / 1506.75 1499 / 1499 Lab / Micro Data Result Diagrams: 07/15/22 05:55 07/15/22 05:55 Labs: Laboratory Results - last 24 hr 07/11/22 05:39: Haptoglobin 250 07/15/22 12:25: POC Glucose 115 H 07/15/22 16:23: POC Glucose 151 H 07/15/22 21:37: POC Glucose 144 H 07/16/22 06:31: POC Glucose 123 H Micro: Microbiology 07/09/22 18:47 Wound - Left Foot Gram Stain - Final 07/09/22 18:47 Wound - Left Foot Wound Culture - Final Staphylococcus epidermidis Gram positive misa 07/09/22 18:47 Wound - Left Foot Anaerobic Culture - Final Anaerobic cocci Bacteroides ovatus Clostridium group Porphyromonas species 07/09/22 17:55 Blood Culture (Wb) - Port Blood Culture - Final No growth in 5 days. 07/09/22 17:20 Blood Culture (Wb) - Other Blood Culture - Final No growth in 5 days. 07/10/22 18:27 Stool Stool Occult Blood (MARILY) - Final 07/09/22 18:47 Stool Stool Occult Blood (MARILY) - Final Physical Exam Narrative Patient AOx3. Vascular status unchanged, severe PAD RLE. Dry gangrene involving to right 1st, 2nd, 3rd digits. No signs of infection. No signs of DVT. Assessment & Plan Assessment/Plan (1) Dry gangrene: (2) Other specified peripheral vascular diseases: (3) Other hereditary and idiopathic neuropathies: PLAN: Plan Patient examined Oncology suggests poor prognosis 2/2 myelodysplastic syndrome, recommend conservative treatment of vascular disease Vascular surgery - angiogram w/o intervention 07/15/22 performed, SFA/Popliteal occlusion noted ID onboard - cultures + for MRSE, recommend doxy/augmentin on d/c Performing local wound care to right foot. Patent unable to undergo revascularization due to poor prognosis with regards to myelodysplastic syndrome, this prohibits us from doing any definitive amputation. Will plan to observe site weekly for acute signs of infection and manage the p atient conservatively. Will plan for next dressing change on Tuesday.
[2022-07-16 11:30] LABS: Bedside Glucose 146 mg/dL (74-106)
--- NOTE | 2022-07-16 11:45 | CASEMGMT ---
SARAHY BHATTI updated that patient is interested in HHC. SARAHY BHATTI in to discuss discharge planning with patient and family. A list of HHC providers including quality and resource use data and consistent with the patient?s preferred geographical region, medical needs, and insurance network were provided from the [employer] Guide. Patient and family prefer [facility]. SARAHY BHATTI called and made referral with [facility] for shelter and therapy. Awaiting acceptance. states that patient will need FWW for at home. SARAHY BHATTI discussed DME agencies with patient and and prefer [facility]. SARAHY BHATTI to obtain script from hospitalist and send to [facility]. CM will continue to follow this patient and plan for a safe discharge.
--- NOTE | 2022-07-16 13:45 | CASEMGMT ---
SARAHY BHATTI received call back from [facility] and they are able to accept the patient with start of care for Tuesday07/19/22. Script received and sent to [facility] via [facility]. SARAHY BHATTI called [facility] and arranged for delivery of walker to patient's room. Patient and family updated with acceptance of [facility]. Patient and family had no further questions or concerns at this time.
--- NOTE | 2022-07-16 14:41 | PCM.RX.CS ---
Consult Pharmacy has been consulted to manage selected antiobiotic: Vancomycin Type of Consult: New start Suspected Infection: Skin/Soft tissue Prior Doses of Antibiotics Received/Current Regimen: Received loading dose of 2000mg iv x 1 on 07.16.22 @1246. Labs: Sodium 140 mmol/L (136-145) 07/15/22 05:55 Potassium 4.7 mmol/L (3.5-5.1) 07/15/22 05:55 Chloride 112 mmol/L (98-107) H 07/15/22 05:55 Carbon Dioxide 21.0 mmol/L (21.0-32.0) 07/15/22 05:55 Anion Gap 7 (5-15) 07/15/22 05:55 BUN 42 mg/dL (7-18) H 07/15/22 05:55 Creatinine 1.53 mg/dL (0.70-1.30) H 07/15/22 05:55 Est GFR (MDRD) Af Amer 56 mL/min (>60) L 07/15/22 05:55 Est GFR (MDRD) Non-Af 46 mL/min (>60) L 07/15/22 05:55 BUN/Creatinine Ratio 27.5 RATIO (10-20) H 07/15/22 05:55 Glucose 120 mg/dL (74-106) H 07/15/22 05:55 Microbiology: Microbiology 07/09/22 18:47 Wound - Left Foot Gram Stain - Final 07/09/22 18:47 Wound - Left Foot Wound Culture - Final Staphylococcus epidermidis Gram positive misa 07/09/22 18:47 Wound - Left Foot Anaerobic Culture - Final Anaerobic cocci Bacteroides ovatus Clostridium group Porphyromonas species 07/09/22 17:55 Blood Culture (Wb) - Port Blood Culture - Final No growth in 5 days. 07/09/22 17:20 Blood Culture (Wb) - Other Blood Culture - Final No growth in 5 days. 07/10/22 18:27 Stool Stool Occult Blood (MARILY) - Final 07/09/22 18:47 Stool Stool Occult Blood (MARILY) - Final Weight used for dosin kg Estimated Creatinine Clearance: 41 ml/min Goal Trough: 15-20 mcg/mL Pharmacy Plan for Drug Dosing: Will begin 750mg iv q12h starting 12 hrs after 2000mg loading dose per policy. Trough level ordered for before 4th dose on 07.18.22. Pharmacy Service will continue to monitor and adjust dosing as required. Follow-Up Labs: Trough Vancomycin - 07.18.22 @0030 before 0100 dose
[2022-07-16 15:35] LABS: Bedside Glucose 84 mg/dL (74-106)
[2022-07-16] MEDS: Tamsulosin HCl 0.4 MG Capsule PO (21:42)
[2022-07-16] MEDS: Atorvastatin Calcium 10 MG Tablet PO (21:43)
[2022-07-16] MEDS: Acetaminophen 325 MG Tablet 650 MG PO (21:48)
[2022-07-16 22:11] LABS: Bedside Glucose 103 mg/dL (74-106)
[2022-07-17] VITALS (12 sets, daily range): BP systolic 117–149; BP diastolic 45–113; PULSE 80–93; RESP 16–18; TEMP 36.9–37.1; O2SAT 92–100
[2022-07-17 07:20] LABS: Bedside Glucose 96 mg/dL (74-106)
[2022-07-17 08:15] LABS: Absolute Lymphocyte Count 1.07 X10^3/uL (0.83-4.51); Absolute Neutrophil Count 0.9 X10^3/uL (2.0-7.7); Basophil# 0.02 X10^3/uL; Basophil% 0.8 % (0-1); Eosinophil# 0.16 X10^3/uL; Eosinophils% 6.7 % (0-5); Hematocrit 21.9 % (40-54); Hemoglobin 6.7 g/dL (13.0-16.5); Lymphocyte # 1.07 X10^3/ul (0.83-4.51); Lymphocyte % 44.6 % (19-41); Mean Corp Hgb Conc 30.6 g/dL (32-36); Mean Corpuscular Hgb 31.8 pg (27.0-32.0); Mean Corpuscular Volume 103.8 fL (80-94); Monocyte# 0.29 X10^3/uL; Monocyte% 12.1 % (0-10); NRBC Flagged by Analyzer 0 % (0-5); Neutrophil # 0.86 X10^3/uL (2.7-7.7); Neutrophil % 35.8 % (47-70); POSITIVE COUNT YES; POSITIVE DIFFERENTIAL YES; POSITIVE MORPHOLOGY YES; RBC Distribution Width CV 18.6 % (11.6-14.6); RBC Distribution Width SD 70.8 fl (35.1-43.9); Red Blood Count 2.11 M/mm3 (4.6-6.2); White Blood Count 2.4 K/mm3 (4.4-11.0)
[2022-07-17 08:20] LABS: Differential Indicated SCAN CRITERIA MET; Platelet Count 45 K/mm3 (150-450)
[2022-07-17 08:28] LABS: Anion Gap 6 (5-15); BUN 29 mg/dL (7-18); BUN/Creat Ratio 25.4 RATIO (10-20); Calcium,Total 8.1 mg/dL (8.5-10.1); Chloride 114 mmol/L (98-107); Creatinine, Serum 1.14 mg/dL (0.70-1.30); EST Glomerular Filtration Rate 65 mL/min (>60); Est Glom Filt Rate - Afr Amer 79 mL/min (>60); Estimated Creatinine Clearance 55.08 ml/min; Glucose 90 mg/dL (74-106); Magnesium 1.7 mg/dL (1.6-2.6); Phosphorus 2.8 mg/dL (2.5-4.9); Potassium 4.2 mmol/L (3.5-5.1); Sodium Level 140 mmol/L (136-145)
[2022-07-17 09:26] LABS: Anisocytosis 1+; Hypochromasia 1+; Platelet Estimate MKD DEC (ADEQ); Poikilocytosis 1+
[2022-07-17 09:27] LABS: Macrocytosis 1+; Ovalocyte 1+
[2022-07-17] MEDS: Metoprolol Tartrate 50 MG Tablet PO ×2 (10:03→22:11)
[2022-07-17] MEDS: Cholecalciferol (VIT D3) 25 MCG TABLET (1,000 UNITS) PO ×2 (10:03→22:11)
[2022-07-17] MEDS: Omega-3 Acid Ethyl Esters 1 GM Capsule PO ×2 (10:04→22:11)
[2022-07-17] MEDS: Glimepiride 2 MG Tablet PO (10:04)
[2022-07-17] MEDS: Juven (unflavored) Packet 1 PACKET PO ×2 (10:05→16:31)
[2022-07-17] MEDS: Menthol/Lanolin/Calamine/Znox 113 GM Tube 1 APPLIC TOPICAL ×2 (10:05→22:11)
[2022-07-17 11:36] LABS: Bedside Glucose 129 mg/dL (74-106)
--- NOTE | 2022-07-17 13:06 | PCM.PN.HOSP ---
Subjective Subjective Follow-up diabetic foot ulcer ? Patient seen hemoglobin down to 6.7 and order has been given for patient to be transfused 1 unit PRBC Objective Data Objective Data Vital Signs: Vital Signs Temp Pulse Resp BP Pulse Ox O2 Del Method O2 Flow Rate 98.6 F 86 18 138/45 H 97 Nasal Cannula 4 07/17/22 09:50 07/17/22 10:03 07/17/22 09:50 07/17/22 10:03 07/17/22 09:50 07/17/22 09:56 07/17/22 09:56 Oxygen Flow Rate (L/min) 4 Oxygen Delivery Method Nasal Cannula Weight: 98.1 kg Body Mass Index (BMI) 27.7 Intake & Output: Intake and Output for Last 24 Hours 07/15/22 07/16/22 07/17/22 23:59 23:59 23:59 Intake Total 1566.75 / 1806.75 3685.5 / 3685.5 1688.50 / 1688.50 Output Total 300 / 300 Balance 1566.75 / 1506.75 3385.5 / 3385.5 1688.50 / 1688.50 Lab / Micro Data Result Diagrams: 07/17/22 06:52 07/17/22 06:52 Labs: Laboratory Results - last 24 hr 07/16/22 15:14: POC Glucose 84 07/16/22 21:41: POC Glucose 103 07/17/22 06:48: POC Glucose 96 07/17/22 06:52: WBC 2.4 L, RBC 2.11 L, Hgb 6.7 L, Hct 21.9 L, MCV 103.8 H, MCH 31.8, MCHC 30.6 L, RDW Std Deviation 70.8 H, RDW Coeff of Agustina 18.6 H, Plt Count 45 L*, Immature Gran % (Auto) 0.000, Neut % (Auto) 35.8 L, Lymph % (Auto) 44.6 H, [place] % (Auto) 12.1 H, Eos % (Auto) 6.7 H, Baso % (Auto) 0.8, Absolute Neuts (auto) 0.9 L, Absolute Lymphs (auto) 1.07, Nucleated RBC % 0, Diff Path Review May foll, Platelet Estimate MKD DEC, Hypochromasia 1+, Poikilocytosis 1+, Anisocytosis 1+, Macrocytosis 1+, Ovalocytes 1+ 07/17/22 06:52: Sodium 140, Potassium 4.2, Chloride 114 H, Carbon Dioxide 20.0 L, Anion Gap 6, BUN 29 H, Creatinine 1.14, Estim Creat Clear Calc 55.08, Est GFR (MDRD) Af Amer 79, Est GFR (MDRD) Non-Af 65, BUN/Creatinine Ratio 25.4 H, Glucose 90, Calcium 8.1 L, Phosphorus 2.8, Magnesium 1.7 07/17/22 11:18: POC Glucose 129 H Micro: Microbiology 07/17/22 00:08 Stool Enteric Bacteriology - Final 07/17/22 00:08 Stool C. difficile DNA Amplification - Final 07/09/22 18:47 Wound - Left Foot Gram Stain - Final 07/09/22 18:47 Wound - Left Foot Wound Culture - Final Staphylococcus epidermidis Gram positive misa 07/09/22 18:47 Wound - Left Foot Anaerobic Culture - Final Anaerobic cocci Bacteroides ovatus Clostridium group Porphyromonas species 07/09/22 17:55 Blood Culture (Wb) - Port Blood Culture - Final No growth in 5 days. 07/09/22 17:20 Blood Culture (Wb) - Other Blood Culture - Final No growth in 5 days. 07/10/22 18:27 Stool Stool Occult Blood (MARILY) - Final 07/09/22 18:47 Stool Stool Occult Blood (MARILY) - Final Physical Exam Narrative GENERAL: cooperative HEENT: Atraumatic; normocephalic EYES; Anicteric, Normal Conjunctiva NECK; supple, normal thyroid, RESPIRATORY: Diminished to auscultation CARDIOVASCULAR: Regular S1 S2, GI: soft, normoactive bowel sounds, : No Renal angle tenderness; EXTREMITIES: Right foot in surgical dressing MUSCULOSKELETAL: no muscle wasting NEURO: Awake; no lateralizing signs. SKIN: No Rash PSYCH; Flat affect Assessment & Plan Assessment/Plan (1) Dry gangrene: PLAN: Plan Patient is an 87-year-old gentleman sent from his primary care physician's office to the ED with necrotic right big toe 1. 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 Admitted to regular nursing floor started on broad-spectrum antibiotic therapy with Unasyn. Consultation placed to both vascular surgery as well as podiatry medicine -07/16/2022 patient underwent aortogram, right lower extremity runoff findings included SFA/popliteal occlusion, peroneal best reconstituted vessel; both AT and PT reconstituted nonsurgical management recommended for now. Consult subsequently placed to ID to advise on antibiotic therapy and discharge 2. Peripheral arterial disease with known history of SFA/popliteal occlusion ? Patient seen in consultation by Dr. Hooks with vascular disease. Recommended for patient to undergo further vascular surgery prior to any surgical intervention possibly right TMA amputation -07/13/[address] Hooks with vascular surgery plans for patient to undergo diagnostic angiogram on 07/14/2022. 07/14/2022; diagnostic angiography scheduled for this afternoon. 07/15/2022; patient diagnostic angiography was rescheduled for today 07/15/2022 3. Anemia ? Secondary to myelodysplastic syndrome patient seen in consultation by Dr. Redmond notes and recommendations reviewed. Patient is on Revlimid did continue ? 07/14/2022. Patient hemoglobin continues to drop currently down to 7.1 patient has been typed and screened. Repeat H&H ordered for the afternoon if less than 7 patient will be transfused ? 07/17/2022; hemoglobin down to 6.7 and order has been given for patient to be transfused with 1 unit PRBC repeat H&H ordered for a.m. 4. Thrombocytopenia ? Secondary to myelodysplastic syndrome monitoring 5. Diabetes mellitus type 2 with complications including diabetic nephropathy ? Patient is on metformin held on admission placed on Accu-Cheks before meals and at bedtime with sliding scale coverage. Patient was on glimepiride discontinued in view of significant risk for hypoglycemia given patient impaired kidney function 6. Chronic kidney disease stage III ? Secondary to diabetic nephropathy monitoring with daily BMPs 7. History of pulmonary embolism ? Patient was on Eliquis prior to coming in. He had apparently ran out almost 10 days prior to his admission. Severe anemia as well as his anticipated TMA Eliquis was held on admission 8. BPH ? Patient is on tamsulosin did continue 9. Dyslipidemia -Patient is on statin at home did continue 10. Lactic acidosis ? Present on admission secondary to patient being on metformin metformin held on admission 11. Chronic congestive heart failure with preserved ejection fraction ? Currently not in exacerbation we will continue with monitoring Time spent in the patient's overall evaluation,decision-making process, review of diagnostic data, adjustment of management, discussion with other providers, nursing nursing and ancillary staff involved in patient's care documentation, 38 Minutes Charges/Coding Visit Charges Inpatient E&M: 59765 Subs Hosp L2
[2022-07-17] MEDS: 0.9% Normal Saline 1,000 ML 75 ML IV (14:18)
[2022-07-17] MEDS: Insulin Lispro 100 UNIT/ML INSULN.PEN SC (16:29)
[2022-07-17] MEDS: 0.9% Saline Lock 10 ML Syringe IV (16:31)
[2022-07-17 16:56] LABS: Bedside Glucose 168 mg/dL (74-106)
[2022-07-17] MEDS: Tamsulosin HCl 0.4 MG Capsule PO (22:10)
[2022-07-17] MEDS: Atorvastatin Calcium 10 MG Tablet PO (22:11)
[2022-07-17 23:05] LABS: Bedside Glucose 146 mg/dL (74-106)
[2022-07-18] VITALS (7 sets, daily range): BP systolic 109–131; BP diastolic 50–56; PULSE 80–84; RESP 17–18; TEMP 36.9–37.1; O2SAT 85–96
[2022-07-18] MEDS: Acetaminophen 325 MG Tablet 650 MG PO (01:28)
[2022-07-18 01:44] LABS: Vancomycin, Trough Level 16.7 ug/mL (5.0-15.0)
--- NOTE | 2022-07-18 05:25 | PCM.RX.CS ---
Consult Pharmacy has been consulted to manage selected antiobiotic: Vancomycin Type of Consult: Follow-up Labs: Sodium 140 mmol/L (136-145) 07/17/22 06:52 Potassium 4.2 mmol/L (3.5-5.1) 07/17/22 06:52 Chloride 114 mmol/L (98-107) H 07/17/22 06:52 Carbon Dioxide 20.0 mmol/L (21.0-32.0) L 07/17/22 06:52 Anion Gap 6 (5-15) 07/17/22 06:52 BUN 29 mg/dL (7-18) H 07/17/22 06:52 Creatinine 1.14 mg/dL (0.70-1.30) 07/17/22 06:52 Est GFR (MDRD) Af Amer 79 mL/min (>60) 07/17/22 06:52 Est GFR (MDRD) Non-Af 65 mL/min (>60) 07/17/22 06:52 BUN/Creatinine Ratio 25.4 RATIO (10-20) H 07/17/22 06:52 Glucose 90 mg/dL (74-106) 07/17/22 06:52 Vancomycin Trough 16.7 ug/mL (5.0-15.0) H 07/18/22 00:50 Microbiology: Microbiology 07/17/22 00:08 Stool Enteric Bacteriology - Final 07/17/22 00:08 Stool C. difficile DNA Amplification - Final 07/09/22 18:47 Wound - Left Foot Gram Stain - Final 07/09/22 18:47 Wound - Left Foot Wound Culture - Final Staphylococcus epidermidis Gram positive misa 07/09/22 18:47 Wound - Left Foot Anaerobic Culture - Final Anaerobic cocci Bacteroides ovatus Clostridium group Porphyromonas species 07/09/22 17:55 Blood Culture (Wb) - Port Blood Culture - Final No growth in 5 days. 07/09/22 17:20 Blood Culture (Wb) - Other Blood Culture - Final No growth in 5 days. 07/10/22 18:27 Stool Stool Occult Blood (MARILY) - Final 07/09/22 18:47 Stool Stool Occult Blood (MARILY) - Final Goal Trough: 15-20 mcg/mL Pharmacy Plan for Drug Dosing: Pharmacy Service will continue to monitor and adjust dosing as required. TROUGH 16.7 @ 12 HOURS. NO CHANGES, FOLLOW UP TROUGH IN 2 DAYS Follow-Up Labs: Trough Vancomycin Labs to be done on [date and time ordered]: 07/20 @ 0037
[2022-07-18 06:45] LABS: Bedside Glucose 100 mg/dL (74-106)
[2022-07-18 07:42] LABS: Absolute Lymphocyte Count 1.13 X10^3/uL (0.83-4.51); Absolute Neutrophil Count 0.7 X10^3/uL (2.0-7.7); Basophil# 0.01 X10^3/uL; Basophil% 0.4 % (0-1); Eosinophil# 0.18 X10^3/uL; Hematocrit 23.3 % (40-54); Hemoglobin 7.4 g/dL (13.0-16.5); Lymphocyte # 1.13 X10^3/ul (0.83-4.51); Lymphocyte % 50.2 % (19-41); Mean Corp Hgb Conc 31.8 g/dL (32-36); Mean Corpuscular Hgb 32.6 pg (27.0-32.0); Mean Corpuscular Volume 102.6 fL (80-94); Monocyte# 0.26 X10^3/uL; Monocyte% 11.6 % (0-10); NRBC Flagged by Analyzer 0 % (0-5); Neutrophil # 0.67 X10^3/uL (2.7-7.7); Neutrophil % 29.8 % (47-70); POSITIVE COUNT YES; POSITIVE DIFFERENTIAL YES; POSITIVE MORPHOLOGY YES; RBC Distribution Width CV 19.7 % (11.6-14.6); Red Blood Count 2.27 M/mm3 (4.6-6.2); White Blood Count 2.3 K/mm3 (4.4-11.0)
[2022-07-18 07:49] LABS: Platelet Count 43 K/mm3 (150-450)
--- NOTE | 2022-07-18 07:55 | DS.PCM_ITS ---
Providers Date of Admission: 07/09/22 Date of Discharge: 07/18/22 Primary Care Physician: Dr. Livan Mcfarland MD Consultations 07/09/22 22:29 Consult: Podiatry Routine Consulting Provider: Binh Arndt Reason for Consult: Dry Gangrene EMERGENT Consult: No Notified: Yes Date Notified: 07/09/22 Time Notified: 20:11 Method of Notification: Verbal Consult: Vascular Surgery Routine Consulting Provider: Theo Hooks Reason for Consult: Dry Gangrene EMERGENT Consult: No MD Notified: Yes Date Notified: 07/10/22 Time Notified: 06:27 Method of Notification: Text 07/10/22 16:19 Consult: Oncology/Hematology Routine Consulting Provider: [facility]) Reason for Consult: myelodysplasia EMERGENT Consult: No Notified: Yes Date Notified: 07/10/22 Time Notified: 17:21 Method of Notification: paged 07/16/22 10:12 Consult: Infectious Disease Routine Consulting Provider: Chao Ruiz Reason for Consult: diabetic foot EMERGENT Consult: No Notified: Yes Date Notified: 07/16/22 Time Notified: 10:12 Method of Notification: Text Reason For Visit: DRY GANGRENE Diagnosis Discharge Diagnosis (1) Dry gangrene: Status: Acute Code(s): I96 - Gangrene, not elsewhere classified Plan Patient is an 87-year-old gentleman sent from his primary care physician's office to the ED with necrotic right big toe 1. 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 Admitted to regular nursing floor started on broad-spectrum antibiotic therapy with Unasyn. Consultation placed to both vascular surgery as well as podiatry medicine -07/16/2022 patient underwent aortogram, right lower extremity runoff findings included SFA/popliteal occlusion, peroneal best reconstituted vessel; both AT and PT reconstituted nonsurgical management recommended for now. Consult subsequently placed to ID to advise on antibiotic therapy and discharge 2. Peripheral arterial disease with known history of SFA/popliteal occlusion ? Patient seen in consultation by Dr. Hooks with vascular disease. Recommended for patient to undergo further vascular surgery prior to any surgical intervention possibly right TMA amputation -07/13/[address] Hooks with vascular surgery plans for patient to undergo diagnostic angiogram on 07/14/2022. 07/14/2022; diagnostic angiography scheduled for this afternoon. 07/15/2022; patient diagnostic angiography was rescheduled for today 07/15/2022 3. Anemia ? Secondary to myelodysplastic syndrome patient seen in consultation by Dr. Redmond notes and recommendations reviewed. Patient is on Revlimid did continue ? 07/14/2022. Patient hemoglobin continues to drop currently down to 7.1 patient has been typed and screened. Repeat H&H ordered for the afternoon if less than 7 patient will be transfused ? 07/17/2022; hemoglobin down to 6.7 and order has been given for patient to be transfused with 1 unit PRBC repeat H&H ordered for a.m. 4. Thrombocytopenia ? Secondary to myelodysplastic syndrome monitoring 5. Diabetes mellitus type 2 with complications including diabetic nephropathy ? Patient is on metformin held on admission placed on Accu-Cheks before meals and at bedtime with sliding scale coverage. Patient was on glimepiride discontinued in view of significant risk for hypoglycemia given patient impaired kidney function 6. Chronic kidney disease stage III ? Secondary to diabetic nephropathy monitoring with daily BMPs 7. History of pulmonary embolism ? Patient was on Eliquis prior to coming in. He had apparently ran out almost 10 days prior to his admission. Severe anemia as well as his anticipated TMA Eliquis was held on admission 8. BPH ? Patient is on tamsulosin did continue 9. Dyslipidemia -Patient is on statin at home did continue 10. Lactic acidosis ? Present on admission secondary to patient being on metformin metformin held on admission 11. Chronic congestive heart failure with preserved ejection fraction ? Currently not in exacerbation we will continue with monitoring Time spent in the patient's overall evaluation,decision-making process, review of diagnostic data, adjustment of management, discussion with other providers, n gregoring nursing and ancillary staff involved in patient's care documentation, 38 Minutes Medications at Discharge Home Medications lisinopril 20 mg tablet 20 mg PO BID Blood pressure 04/05/18 lovastatin 40 mg tablet 40 mg PO QHS CHOLESTEROL 04/05/18 metformin 1,000 mg tablet 1,000 mg PO BID DIABETES 04/05/18 omega-3 fatty acids-fish oil 340 mg-1,000 mg capsule 1 cap PO BID SUPPLEMENT 04/10/18 tamsulosin 0.4 mg capsule 0.4 mg PO QHS URINE FLOW 09/08/18 metoprolol tartrate 50 mg tablet 50 mg PO BID blood pressure 09/19/18 cholecalciferol (vitamin D3) 25 mcg (1,000 unit) tablet 25 mcg PO BID supplement 01/24/19 lidocaine-prilocaine 2.5 %-2.5 % topical cream 1 applic topical ONCE PRN port access 30 days #30 grams 05/20/21 glimepiride 1 mg tablet 2 mg PO DAILY dm 06/01/21 apixaban 2.5 mg tablet (Eliquis) 2.5 mg PO BID blood thinner 12/21/21 lenalidomide 10 mg capsule (Revlimid) 10 mg PO DAILY myeloma 07/09/22 acetaminophen 325 mg tablet (Tylenol) 650 mg PO Q4H PRN PRN Pain 1-10 Or Fever #0 tabs 07/17/22 amoxicillin 875 mg-potassium clavulanate 125 mg tablet 1 tab PO BID #20 tabs 07/17/22 arginine 7 gram-glutam 7 gram-CaHMB 1.5 [id number]-ic-min oral pwd pkt (Javier (with collagen)) 1 packet PO BIDCM 30 days #60 ea 07/17/22 doxycycline hyclate 100 mg capsule 100 mg PO BID #20 caps 07/17/22 Hospital Course Summary of Care Provided Minutes Spent on Discharge: 38 Physical Exam Narrative GENERAL: cooperative HEENT: Atraumatic; normocephalic EYES; Anicteric, Normal Conjunctiva NECK; supple, normal thyroid, RESPIRATORY: Diminished to auscultation CARDIOVASCULAR: Regular S1 S2, GI: soft, normoactive bowel sounds, : No Renal angle tenderness; EXTREMITIES: Right foot in surgical dressing MUSCULOSKELETAL: no muscle wasting NEURO: Awake; no lateralizing signs. SKIN: No Rash PSYCH; Flat affect Weight / BMI Weight Weight: 98.1 kg Body Mass Index (BMI) 27.7 ABG / Lab / Microbiology Data Result Diagrams: 07/18/22 07:04 07/18/22 07:04 Laboratory: Laboratory Results - last 24 hr 07/17/22 06:52: WBC 2.4 L, RBC 2.11 L, Hgb 6.7 L, Hct 21.9 L, MCV 103.8 H, MCH 31.8, MCHC 30.6 L, RDW Std Deviation 70.8 H, RDW Coeff of Agustina 18.6 H, Plt Count 45 L*, Immature Gran % (Auto) 0.000, Neut % (Auto) 35.8 L, Lymph % (Auto) 44.6 H , Gentry % (Auto) 12.1 H, Eos % (Auto) 6.7 H, Baso % (Auto) 0.8, Absolute Neuts (auto) 0.9 L, Absolute Lymphs (auto) 1.07, Nucleated RBC % 0, Diff Path Review May foll, Platelet Estimate MKD DEC, Hypochromasia 1+, Poikilocytosis 1+, Anisocytosis 1+, Macrocytosis 1+, Ovalocytes 1+ 07/17/22 06:52: Sodium 140, Potassium 4.2, Chloride 114 H, Carbon Dioxide 20.0 L , Anion Gap 6, BUN 29 H, Creatinine 1.14, Estim Creat Clear Calc 55.08, Est GFR (MDRD) Af Amer 79, Est GFR (MDRD) Non-Af 65, BUN/Creatinine Ratio 25.4 H, Glucose 90, Calcium 8.1 L, Phosphorus 2.8, Magnesium 1.7 07/17/22 11:18: POC Glucose 129 H 07/17/22 15:25: Blood Type O NEGATIVE, Antibody Screen NEGATIVE, Crossmatch See Detail 07/17/22 16:28: POC Glucose 168 H 07/17/22 22:15: POC Glucose 146 H 07/18/22 00:50: Vancomycin Trough 16.7 H 07/18/22 06:26: POC Glucose 100 07/18/22 07:04: WBC 2.3 L, RBC 2.27 L, Hgb 7.4 L, Hct 23.3 L, MCV 102.6 H, MCH 32.6 H, MCHC 31.8 L, RDW Std Deviation 73.0 H, RDW Coeff of Agustina 19.7 H, Plt Count 43 L*, Immature Gran % (Auto) 0.000, Neut % (Auto) 29.8 L, Lymph % (Auto) 50.2 H, Gentry % (Auto) 11.6 H, Eos % (Auto) 8.0 H, Baso % (Auto) 0.4, Absolute Neuts (auto) 0.7 L, Absolute Lymphs (auto) 1.13, Nucleated RBC % 0 Microbiology: Microbiology 07/17/22 00:08 Stool Enteric Bacteriology - Final 07/17/22 00:08 Stool C. difficile DNA Amplification - Final 07/09/22 18:47 Wound - Left Foot Gram Stain - Final 07/09/22 18:47 Wound - Left Foot Wound Culture - Final Staphylococcus epidermidis Gram positive misa 07/09/22 18:47 Wound - Left Foot Anaerobic Culture - Final Anaerobic cocci Bacteroides ovatus Clostridium group Porphyromonas species 07/09/22 17:55 Blood Culture (Wb) - Port Blood Culture - Final No growth in 5 days. 07/09/22 17:20 Blood Culture (Wb) - Other Blood Culture - Final No growth in 5 days. 07/10/22 18:27 Stool Stool Occult Blood (MARILY) - Final 07/09/22 18:47 Stool Stool Occult Blood (MARILY) - Final D/C Instructions Discharge Diet: No restrictions Discharge Activity: Return to Normal Activity Call your doctor if you observe: Fever of 101 or Higher, Shortness of breath, Fainting spells and Chest pain Meaningful Use Info Meaningful Use Diagnoses (Choose all that apply): None applicable Discharge Plan Admission Admit Date/Time: 07/09/22 20:01 Attending Provider: Giovany Minor Primary Care Provider: Livan Mcfarland Consulting Providers: Binh Arndt ; Theo Hooks ; Nash London ; Giovany Butterfield ; Nash Kunz ; Adele Redmond ; Chao Lockett ; Darell Rudd ; Tim Vogt ; Angel North ; Annemarie rCaig NP ; Theo Kirkland ; Chao Ruiz Discharge Orders/Prescriptions Prescriptions: New doxycycline hyclate 100 mg capsule 100 mg PO BID Qty: 20 0RF amoxicillin-pot clavulanate 875-125 mg tablet 1 tab PO BID Qty: 20 0RF acetaminophen [Tylenol] 325 mg Tablet 650 mg PO Q4H PRN PRN (Reason: Pain 1-10 Or Fever) Qty: 0 0RF Javier (with collagen) 7-7-1.5 gram Powder In Packet 1 packet PO BIDCM 30 Days Qty: 60 0RF Continued metformin 1,000 mg tablet 1,000 mg PO BID lisinopril 20 mg tablet 20 mg PO BID lovastatin 40 mg tablet 40 mg PO QHS cholecalciferol (vitamin D3) 1,000 unit tablet 25 mcg PO BID glimepiride 1 mg tablet 2 mg PO DAILY lidocaine-prilocaine 2.5-2.5 % cream 1 applic topical ONCE PRN (Reason: port access) 30 Days Qty: 30 2RF omega-3 fatty acids-fish oil 1 EACH capsule 1 cap PO BID tamsulosin 0.4 MG capsule 0.4 mg PO QHS metoprolol tartrate 50 MG tablet 50 mg PO BID lenalidomide [Revlimid] 10 mg capsule 10 mg PO DAILY Eliquis 2.5 mg tablet 2.5 mg PO BID Referrals / Follow Up: Binh Arndt DPM [Med Staff - Active Staff] - In 1 Week Adele Redmond MD [Med Staff - Active Staff] - In 1 Week Livan Mcfaralnd MD [Primary Care Provider] - In 1 Week Disposition Disposition (needs filled in before D/C Order can be placed): Home Health Service Charges/Coding Visit Charges Inpatient E&M: 76587 Disch Hosp >30min
[2022-07-18 08:19] LABS: Anion Gap 6 (5-15); BUN 31 mg/dL (7-18); BUN/Creat Ratio 27.4 RATIO (10-20); Calcium,Total 8.2 mg/dL (8.5-10.1); Chloride 110 mmol/L (98-107); Creatinine, Serum 1.13 mg/dL (0.70-1.30); EST Glomerular Filtration Rate 66 mL/min (>60); Est Glom Filt Rate - Afr Amer 79 mL/min (>60); Estimated Creatinine Clearance 55.57 ml/min; Glucose 83 mg/dL (74-106); Potassium 4.1 mmol/L (3.5-5.1); Sodium Level 139 mmol/L (136-145)
[2022-07-18 09:37] LABS: Differential Indicated SCAN CRITERIA MET
--- NOTE | 2022-07-18 09:38 | NURSING ---
[facility] notified of need for home oxygen set up and prescription faxed.
[2022-07-18 09:39] LABS: Anisocytosis 3+; Differential Comment SCANNED; Hypochromasia 1+; Platelet Estimate MKD DEC (ADEQ); Platelet Morphology LARGE; Poikilocytosis 1+; Reactive Lymphocyte 1+
[2022-07-18 09:40] LABS: Acanthocytes 1+; Macrocytosis 1+; Microcytosis 2+
[2022-07-18] MEDS: Glimepiride 2 MG Tablet PO (09:53)
[2022-07-18] MEDS: Omega-3 Acid Ethyl Esters 1 GM Capsule PO (09:53)
[2022-07-18] MEDS: Metoprolol Tartrate 50 MG Tablet PO (09:53)
[2022-07-18] MEDS: Juven (unflavored) Packet 1 PACKET PO (09:54)
[2022-07-18] MEDS: Cholecalciferol (VIT D3) 25 MCG TABLET (1,000 UNITS) PO (09:54)
[2022-07-18] MEDS: 0.9% Saline Lock 10 ML Syringe IV ×2 (09:59→12:01)
[2022-07-18] MEDS: Furosemide 40 MG/4 ML Vial IV (09:59)
[2022-07-18] MEDS: Menthol/Lanolin/Calamine/Znox 113 GM Tube 1 APPLIC TOPICAL (10:02)
--- NOTE | 2022-07-18 11:25 | PN_ITS ---
Subjective Subjective no changes today. Objective Data Objective Data Vital Signs: Vital Signs Temp Pulse Resp BP Pulse Ox O2 Del Method O2 Flow Rate 98.4 F 80 18 131/52 H 94 Nasal Cannula 4 07/18/22 09:32 07/18/22 09:53 07/18/22 09:32 07/18/22 09:53 07/18/22 09:32 07/18/22 09:32 07/18/22 09:32 Oxygen Flow Rate (L/min) [ 3 AMBULATING with Oxygen #3] Oxygen Flow Rate (L/min) [ 2 AMBULATING with Oxygen #2] Oxygen Flow Rate (L/min) [ 4 AMBULATING with Oxygen #1] Oxygen Flow Rate (L/min) [At 4 REST with Oxygen] Oxygen Flow Rate (L/min) [At 0 REST on Room Air] Oxygen Flow Rate (L/min) 4 Oxygen Delivery Method Nasal Cannula Weight: 98.1 kg Body Mass Index (BMI) 27.7 Intake & Output: Intake and Output for Last 24 Hours 07/16/22 07/17/22 07/18/22 23:59 23:59 23:59 Intake Total 3685.5 / 3685.5 3668.75 / 3668.75 1525.75 / 1525.75 Output Total 300 / 300 Balance 3385.5 / 3385.5 3668.75 / 3668.75 1525.75 / 1525.75 Lab / Micro Data Result Diagrams: 07/18/22 07:04 07/18/22 07:04 Labs: Laboratory Results - last 24 hr 07/17/22 11:18: POC Glucose 129 H 07/17/22 15:25: Blood Type O NEGATIVE, Antibody Screen NEGATIVE, Crossmatch See Detail 07/17/22 16:28: POC Glucose 168 H 07/17/22 22:15: POC Glucose 146 H 07/18/22 00:50: Vancomycin Trough 16.7 H 07/18/22 06:26: POC Glucose 100 07/18/22 07:04: WBC 2.3 L, RBC 2.27 L, Hgb 7.4 L, Hct 23.3 L, MCV 102.6 H, MCH 32.6 H, MCHC 31.8 L, RDW Std Deviation 73.0 H, RDW Coeff of Agustina 19.7 H, Plt Count 43 L*, Immature Gran % (Auto) 0.000, Neut % (Auto) 29.8 L, Lymph % (Auto) 50.2 H, [place] % (Auto) 11.6 H, Eos % (Auto) 8.0 H, Baso % (Auto) 0.4, Absolute Neuts (auto) 0.7 L, Absolute Lymphs (auto) 1.13, Nucleated RBC % 0, Differential Comment SCANNED, Diff Path Review May foll, Reactive Lymphocytes 1+, Platelet Estimate MKD DEC, Plt Morphology Comment LARGE, Hypochromasia 1+, Poikilocytosis 1+, Anisocytosis 3+, Microcytosis 2+, Macrocytosis 1+, Acanthocytes (Spur) 1+ 07/18/22 07:04: Sodium 139, Potassium 4.1, Chloride 110 H, Carbon Dioxide 23.0, Anion Gap 6, BUN 31 H, Creatinine 1.13, Estim Creat Clear Calc 55.57, Est GFR (MDRD) Af Amer 79, Est GFR (MDRD) Non-Af 66, BUN/Creatinine Ratio 27.4 H, Glucose 83, Calcium 8.2 L Micro: Microbiology 07/17/22 00:08 Stool Enteric Bacteriology - Final 07/17/22 00:08 Stool C. difficile DNA Amplification - Final 07/09/22 18:47 Wound - Left Foot Gram Stain - Final 07/09/22 18:47 Wound - Left Foot Wound Culture - Final Staphylococcus epidermidis Gram positive misa 07/09/22 18:47 Wound - Left Foot Anaerobic Culture - Final Anaerobic cocci Bacteroides ovatus Clostridium group Porphyromonas species 07/09/22 17:55 Blood Culture (Wb) - Port Blood Culture - Final No growth in 5 days. 07/09/22 17:20 Blood Culture (Wb) - Other Blood Culture - Final No growth in 5 days. 07/10/22 18:27 Stool Stool Occult Blood (MARILY) - Final 07/09/22 18:47 Stool Stool Occult Blood (MARILY) - Final Physical Exam Narrative Patient AOx3. Vascular status unchanged, severe PAD RLE. Dry gangrene involving to right 1st, 2nd, 3rd digits. No signs of infection. No signs of DVT. Const alert, oriented x3 and no apparent distress Constitutional Narrative: Left foot with dry gangrene to the entire 1st toe, there is erythema to the distal forefoot dorsally and some plantarly, there is no fluctuance, no crepitus, no blistering, no visible abscess present; 2nd and 3rd toes are more dusky developing into dry gangrene, DP and PT nonpalpable left foot, there is decreased sensation to the left foot. Assessment & Plan Assessment/Plan (1) Dry gangrene: (2) Other specified peripheral vascular diseases: (3) Other hereditary and idiopathic neuropathies: PLAN: Plan Patient examined Oncology suggests poor prognosis 2/2 myelodysplastic syndrome, recommend conservative treatment of vascular disease Vascular surgery - angiogram w/o intervention 07/15/22 performed, SFA/Popliteal occlusion noted ID onboard - cultures + for MRSE, recommend doxy/augmentin on d/c Performing local wound care to right foot. Patent unable to undergo revascularization due to poor prognosis with regards to myelodysplastic syndrome, this prohibits us from doing any definitive amputati on. dressing changed today, well demarcated dry gangrene to digits 1,2,3 on right. Will plan to observe site weekly for acute signs of infection and manage the patient conservatively. recommend weekly follow up on d/c.
[2022-07-18 11:31] LABS: Bedside Glucose 106 mg/dL (74-106)
[2022-07-20 09:11] LABS: Pathologist Review Reviewed
[2022-07-20 09:11] LABS: Pathologist Review Reviewed
== END 2022-07-18 13:04 | disposition home health service (06) | DRG 300 ==
LOC: ED 20:24 → PCU 07-10 07:01 → MS3 07-12 10:11
PROVIDERS: Anesthesiology; Internal Medicine Hematology & Oncology; Internal Medicine Infectious Disease; Podiatrist; Admitting Provider Hospitalist; Emergency Provider Emergency Medicine; PCP Family Medicine; Visit Provider Internal Medicine
DX: I70.261 Atherosclerosis of native arteries of extremities with gangrene, right leg (principal); N17.9 Acute kidney failure, unspecified; D61.818 Other pancytopenia; C85.10 Unspecified B-cell lymphoma, unspecified site; I13.0 Hypertensive heart and chronic kidney disease with heart failure and stage 1 through stage 4 chronic kidney disease, or unspecified chronic kidney disease; I50.32 Chronic diastolic (congestive) heart failure; I27.21 Secondary pulmonary arterial hypertension; B95.7 Other staphylococcus as the cause of diseases classified elsewhere; I48.91 Unspecified atrial fibrillation; L97.522 Non-pressure chronic ulcer of other part of left foot with fat layer exposed; G60.9 Hereditary and idiopathic neuropathy, unspecified; D46.9 Myelodysplastic syndrome, unspecified; E11.22 Type 2 diabetes mellitus with diabetic chronic kidney disease; E11.621 Type 2 diabetes mellitus with foot ulcer; N18.30 Chronic kidney disease, stage 3 unspecified; E11.51 Type 2 diabetes mellitus with diabetic peripheral angiopathy without gangrene; E11.65 Type 2 diabetes mellitus with hyperglycemia; I25.10 Atherosclerotic heart disease of native coronary artery without angina pectoris; E78.5 Hyperlipidemia, unspecified; Z79.01 Long term (current) use of anticoagulants; Z79.84 Long term (current) use of oral hypoglycemic drugs; Z87.891 Personal history of nicotine dependence; Z79.899 Other long term (current) drug therapy; Z86.718 Personal history of other venous thrombosis and embolism; Z86.711 Personal history of pulmonary embolism; N40.0 Benign prostatic hyperplasia without lower urinary tract symptoms; Z85.72 Personal history of non-Hodgkin lymphomas; B96.89 Other specified bacterial agents as the cause of diseases classified elsewhere
CPT/HCPCS: 36200; 36245; 36415; 73630; 75625; 75710; 76937; 80048; 80053; 80202; 81001; 82248; 82274; 82728; 82962; 83010; 83036; 83540; 83550; 83605; 83615; 83735; 84100; 84484; 85014; 85018; 85025; 85045; 85610; 85652; 85730; 86140; 86850; 86880; 86900; 86901; 86920; 86922; 87040; 87070; 87075; 87077; 87186; 87205; 87493; 87506; 87640; 93005; 93923; 97110; 97116; 97162; 97166; 97530; 97535; 97802; 97803; 99152; 99153; 99285; C1760; C1769; J7030; J7040; J7050; P9016; P9040; Q9967; A4216; J0295; J1940

== ENCOUNTER 2022-07-21 12:07 | Inpatient (IN) | payer MEDICARE, OTHER, SELFPAY ==
[2022-07-21] VITALS (21 sets, daily range): BP systolic 63–98; BP diastolic 39–57; PULSE 81–90; RESP 14–20; TEMP 36.2–36.9; O2SAT 92–99; BMI 28.2; BMI 32.4
--- NOTE | 2022-07-21 12:33 | EDS_ITS ---
HPI History of Present Illness Chief Complaint: Rash Informant: patient Onset/Context/Timing Onset: Days Context: Gradual Onset Timing: Continuous Quality: Erythematous Location: Generalized Worsened by: Nothing Relieved by: Tylenol Narrative Narrative: Has been goodPatient presents with generalized rash and worse over the past several days. Patient states the rash is diffuse across his entire chest and abdomen. Patient was recently admitted to the hospital for dry gangrene of his right foot. Patient states he was discharged a week ago. Patient states the rash began prior to being discharged. Patient also admits to some pain in his right foot which has been persistent. Patient describes it as burning. Patient states it comes and goes. Patient denies any trauma. Family states patient had a temperature of 100.1 at home earlier today. 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 forearm Bilateral pulmonary embolism (01/2019) Bladder cancer Chemotherapy management, encounter for Diabetes Discoloration of skin Dysuria Encounter for education Essential (primary) hypertension Fall Former smoker Hematuria, gross Hyperlipidemia Injury of back Large B-cell lymphoma Low back pain Lower urinary tract symptoms Lymphoma MDS (myelodysplastic syndrome) Obesity Pancytopenia Peripheral vascular occlusive disease Prostate disease Recurrent right inguinal hernia Right inguinal hernia Right leg pain Scrotal abscess Secondary pulmonary arterial hypertension Sleep apnea 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 artery Thyromegaly Type 2 diabetes mellitus Venous insufficiency (chronic) (peripheral) VTE (venous thromboembolism) Wears dentures Home Medications lisinopril 20 mg tablet 20 mg PO BID Blood pressure 04/05/18 [History Last Taken 07/08/22] lovastatin 40 mg tablet 40 mg PO QHS CHOLESTEROL 04/05/18 [History Last Taken 07/08/22] metformin 1,000 mg tablet 1,000 mg PO BID DIABETES 04/05/18 [History Last Taken 07/08/22] tamsulosin 0.4 mg capsule 0.4 mg PO QHS URINE FLOW 09/08/18 [History Last Taken 07/08/22] metoprolol tartrate 50 mg tablet 50 mg PO BID blood pressure 09/19/18 [History Last Taken 07/09/22] cholecalciferol (vitamin D3) 25 mcg (1,000 unit) tablet 25 mcg PO DAILY supplement 01/24/19 [History Last Taken 07/08/22] lidocaine-prilocaine 2.5 %-2.5 % topical cream 1 applic topical ONCE PRN port access 30 days #30 grams 05/20/21 [Rx Last Taken Unknown] apixaban 2.5 mg tablet (Eliquis) 2.5 mg PO BID blood thinner 12/21/21 [History Last Taken 1 Week Ago ~07/02/22] lenalidomide 10 mg capsule (Revlimid) 10 mg PO DAILY myeloma 07/09/22 [History Last Taken 07/08/22] amoxicillin 875 mg-potassium clavulanate 125 mg tablet 1 tab PO BID #20 tabs 07/17/22 [Rx Last Taken Unknown] doxycycline hyclate 100 mg capsule 100 mg PO BID #20 caps 07/17/22 [Rx Last Taken Unknown] acetaminophen 325 mg tablet (Tylenol) 650 mg PO Q4H PRN Pain 07/21/22 [History Last Taken Unknown] arginine 7 gram-glutam 7 gram-CaHMB 1.5 [id number] oral pwd pkt (Javier (with collagen)) 1 packet PO BIDCM supplement 07/21/22 [History Last Taken Unknown] glimepiride 2 mg tablet 2 mg PO DAILY diabetes 07/21/22 [History Last Taken Unknown] omega-3 fatty acids 1,000 mg capsule 1,000 mg PO BID supplement 07/21/22 [History Last Taken Unknown] Allergy/AdvReac Type Severity Reaction Status Date / Time No Known Allergies Allergy Verified 07/21/22 12:08 Family History Sister Breast cancer Diabetes Mother Diabetes Brother Heart disease Hypertension Surgical History Femoral-popliteal bypass graft occlusion, right H/O coronary artery bypass surgery (2006) H/O hernia repair History of appendectomy History of bladder surgery (09/2019) History of cataract extraction History of femoral angiogram (11/21/12) History of herniorrhaphy History of right-sided carotid endarterectomy History of tonsillectomy and adenoidectomy History of transurethral destruction of bladder lesion (12/2018) Hx of lymph node biopsy Social History Smoking Status: Former smoker how long ago did patient quit smokin years ago alcohol intake: current alcohol intake frequency: a few times a week substance use type: does not use caffeine: Yes Type: coffee Number of servings: 2 lars/yazdanism: None seatbelt use: always do you feel safe at home: Yes ROS ROS ED Constitutional Constitutional ED: Denies chills or fever(s) Eyes Eyes: Denies blurry vision or change in vision ENT ENT ED: Denies rhinorrhea or sore throat Cardiovascular Cardiovascular: Denies chest pain or palpitations Respiratory/Chest Respiratory/Chest: Reports dyspnea; Denies cough Gastrointestinal Gastrointestinal: Denies nausea or vomiting Genitourinary Genitourinary ED: Denies dysuria or hematuria Musculoskeletal Musculoskeletal: Reports neck pain; Denies back pain Integumentary Reports rash; Denies abscess Neurologic Neurologic: Denies headache(s) or weakness Allergic/Immunologic Allergic/Immunologic ED: Reports urticaria; Denies mouth swelling EXAM Physical Exam Const Vital Signs: 07/21/22 12:08 07/21/22 12:08 07/21/22 12:36 Temperature 98.2 F 98.2 F 98.2 F Temperature Source Oral Oral Oral Pulse Rate 89 90 90 Respiratory Rate 16 14 14 Blood Pressure 63/41 L 66/40 L Blood Pressure Mean 48 48 Pulse Ox 94 99 98 Oxygen Delivery Method Nasal Cannula Nasal Cannula Nasal Cannula Oxygen Flow Rate (L/min) 4 4 4 07/21/22 12:36 07/21/22 12:30 07/21/22 12:45 Temperature Temperature Source Pulse Rate 86 86 Respiratory Rate 17 16 Blood Pressure 69/43 L 76/47 L Blood Pressure Mean 51 56 Pulse Ox 98 97 Oxygen Delivery Method Nasal Cannula Nasal Cannula Nasal Cannula Oxygen Flow Rate (L/min) 4 4 4 07/21/22 13:00 07/21/22 13:15 07/21/22 13:30 Temperature Temperature Source Pulse Rate 85 86 89 Respiratory Rate 16 14 17 Blood Pressure 75/43 L 77/43 L 83/45 L Blood Pressure Mean 53 54 57 Pulse Ox 95 95 95 Oxygen Delivery Method Nasal Cannula Nasal Cannula Nasal Cannula Oxygen Flow Rate (L/min) 4 4 4 07/21/22 13:45 07/21/22 14:00 07/21/22 13:32 Temperature 98.4 F Temperature Source Oral Pulse Rate 86 83 89 Respiratory Rate 16 17 17 Blood Pressure 73/40 L 71/39 L 83/45 L Blood Pressure Mean 51 49 57 Pulse Ox 93 97 95 Oxygen Delivery Method Nasal Cannula Room Air Nasal Cannula Oxygen Flow Rate (L/min) 4 4 07/21/22 14:17 07/21/22 15:00 Temperature 98.0 F 97.2 F L Temperature Source Oral Temporal Pulse Rate 81 83 Respiratory Rate 15 18 Blood Pressure 72/44 L 88/57 L Blood Pressure Mean 53 67 Pulse Ox 96 99 Oxygen Delivery Method Room Air Nasal Cannula Oxygen Flow Rate (L/min) 3 Positive well nourished and well developed General Appearance ED: well developed and NAD HEENT Reports moist mucous membranes Neck supple and no JVD Resp normal respiratory effort and clear to auscultation bilaterally Cardio regular rate and regular rhythm GI normal to inspection, nondistended, normoactive bowel sounds and non-tender Palpation: soft Extremity normal to inspection General Extremety ED: Negative for edema or tenderness General Extremity: Negative for edema Neuro oriented x3, CN's II-XII intact bilaterally and no sensory deficits noted Sensorium / Orientation: alert Motor Exam: strength 5/5 throughout Psych mental status grossly normal Skin Skin Narrative: There is a diffuse urticarial rash noted. There are no petechia noted. There are no vesicles or pustules. There is no involvement of mucous membranes. MDM MDM MDM Narrative Medical decision making narrative: Prior records were reviewed. It appears as though the patient is currently on Augmentin and doxycycline for his wound infection. Patient had been given vancomycin during his hospitalization. EKG was obtained. On my independent interpretation, there is a normal sinus rhythm with a rate of 86. CA interval was normal at 142 ms. QRS interval was normal at 110 ms. QRS interval was normal at 478 ms. There is left axis deviation at -47. There are nonspecific ST-T wave changes noted in the lateral leads. There is an incomplete left bundle branch block pattern noted. This was unchanged compared to previous EKG. CBC was obtained and was reviewed. White blood cell count is low at 2.3. Hemoglobin was 6.7 and hematocrit 21.7. Platelet count is 43. These results are consistent with prior results. PT with INR and PTT were obtained and were reviewed. INR is 2.3. PTT is 51.1. Comprehensive metabolic profile was obtained and was reviewed. BUN was 53 and creatinine is 2.92. These are increased from previous results. Lactic acid was obtained and was reviewed. This was normal at 1.5. Urinalysis was obtained and was reviewed. There is a leukocyte esterases of 500 with 50-100 white blood cells. Occult blood was 150 with 5-10 red blood cells. Urine culture was obtained. Blood cultures were obtained. Patient was started on cefepime. X-rays of the right foot were obtained. There are 3 views. On my independent interpretation, there is no acute fracture. There is no evidence of osteomyelitis. There is no gas formation noted. Portable chest x-ray was obtained. There is 1 view. On my independent interpretation, there is no acute cardiopulmonary process. There are no infiltrates. There is no pneumothorax. There is no cardiomegaly. Bony thorax is normal. Lab Data Labs: Laboratory Results - last 24 hr 07/21/22 07/21/22 07/21/22 12:29 12:29 12:29 WBC 2.3 L RBC 2.12 L Hgb 6.7 L Hct 21.7 L MCV 102.4 H MCH 31.6 MCHC 30.9 L RDW Std Deviation 71.0 H RDW Coeff of Agustina 19.3 H Plt Count 43 L* Neut % (Auto) Not Reportable Absolute Neuts (auto) 0.7 L Absolute Lymphs (auto) 0.81 L Total Counted 100 Neutrophils % (Manual) 28 L Band Neutrophils % 2 Lymphocytes % (Manual) 35 Monocytes % (Manual) 11 H Eosinophils % (Manual) 21 H Metamyelocytes % 1 Myelocytes % 2 H Diff Path Review May foll Atypical Lymphocytes 1+ Reactive Lymphocytes 1+ Platelet Estimate MKD DEC Plt Morphology Comment LARGE Hypochromasia 1+ Anisocytosis 2+ Microcytosis 1+ Macrocytosis 1+ PT 24.6 H INR 2.3 APTT 51.1 H Sodium 138 Potassium 4.0 Chloride 108 H Carbon Dioxide 21.0 Anion Gap 9 BUN 53 H Creatinine 2.92 H Estim Creat Clear Calc 21.50 Est GFR (MDRD) Af Amer 27 L Est GFR (MDRD) Non-Af 22 L BUN/Creatinine Ratio 18.2 Glucose 92 Lactic Acid Calcium 8.0 L Total Bilirubin 0.40 AST 15 ALT 19 Alkaline Phosphatase 84 Total Protein 4.2 L Albumin 1.7 L Globulin 2.5 Albumin/Globulin Ratio 0.7 L Urine Color Urine Clarity Urine pH Ur Specific [place] Urine Protein Urine Glucose (UA) Urine Ketones Urine Occult Blood Urine Nitrite Urine Bilirubin Urine Urobilinogen Ur Leukocyte Esterase Urine RBC Urine WBC Ur Squamous Epith Cells Ur Transition Epith Cell Urine Bacteria Urine Mucus 07/21/22 07/21/22 12:29 13:48 WBC RBC Hgb Hct MCV MCH MCHC RDW Std Deviation RDW Coeff of Agustina Plt Count Neut % (Auto) Absolute Neuts (auto) Absolute Lymphs (auto) Total Counted Neutrophils % (Manual) Band Neutrophils % Lymphocytes % (Manual) Monocytes % (Manual) Eosinophils % (Manual) Metamyelocytes % Myelocytes % Diff Path Review Atypical Lymphocytes Reactive Lymphocytes Platelet Estimate Plt Morphology Comment Hypochromasia Anisocytosis Microcytosis Macrocytosis PT INR APTT Sodium Potassium Chloride Carbon Dioxide Anion Gap BUN Creatinine Estim Creat Clear Calc Est GFR (MDRD) Af Amer Est GFR (MDRD) Non-Af BUN/Creatinine Ratio Glucose Lactic Acid 1.5 Calcium Total Bilirubin AST ALT Alkaline Phosphatase Total Protein Albumin Globulin Albumin/Globulin Ratio Urine Color Lalita Urine Clarity Sl. Cloudy Urine pH 5.0 Ur Specific [place] 1.020 Urine Protein 100 H Urine Glucose (UA) Normal Urine Ketones 5 H Urine Occult Blood 150 H Urine Nitrite Negative Urine Bilirubin Negative Urine Urobilinogen Normal Ur Leukocyte Esterase 500 H Urine RBC 5-10 SEEN Urine WBC 50-100 SEEN Ur Squamous Epith Cells 0-5 SEEN Ur Transition Epith Cell 0-5 SEEN Urine Bacteria 1+ Urine Mucus 0 SEEN Radiography Chest X-Ray - ED: 1 View, Read by ED Physician, Read by Radiologist and No Acute Disease EKG Initial EKG: Interpretation: Sinus Rhythm (86) and Non-Specific ST Changes Prior EKG tracings: available for review Prior: Unchanged (07/14/2022) Treatment and Re-Evaluation Narrative: Patient was given 3 L of normal saline. Patient's blood pressure on reevaluation was 88/57. Patient feels hungry. Patient wants to eat. Initially, the patient and family was requesting hospice. loft worker pile driving was in to evaluate the patient and will consult hospice. I discussed this with the patient and his family. He request to be admitted and treated for the urinary tract infection and consult with hospice to be on hospice when he is discharged. Case was discussed with the hospitalist. We will plan to evaluate patient and will admit the patient to his service. Patient and family understood and were agreeable with the plan. All questions were answered. Critical Care Time Critical care time (excluding procedures): 30-74 minutes (38), Including time spent:, Discussing w/Patient &/or Family/Outpatient Program Coordinator, Discussing w/Consultants, Arranging Admission or Transfer and Performing Direct Patient Care at Bedside Discharge Plan Triage Chief Complaint: Rash ED Provider: Theo Obregon Dx/Rx/DC Orders Clinical Impression: Cystitis, ADAM (acute kidney injury), Bladder cancer, Dry gangrene Prescriptions: No Action metformin 1,000 mg tablet 1,000 mg PO BID lisinopril 20 mg tablet 20 mg PO BID lovastatin 40 mg tablet 40 mg PO QHS cholecalciferol (vitamin D3) 1,000 unit tablet 25 mcg PO DAILY lidocaine-prilocaine 2.5-2.5 % cream 1 applic topical ONCE PRN (Reason: port access) 30 Days Qty: 30 2RF tamsulosin 0.4 MG capsule 0.4 mg PO QHS metoprolol tartrate 50 MG tablet 50 mg PO BID lenalidomide [Revlimid] 10 mg capsule 10 mg PO DAILY doxycycline hyclate 100 mg capsule 100 mg PO BID Qty: 20 0RF amoxicillin-pot clavulanate 875-125 mg tablet 1 tab PO BID Qty: 20 0RF omega-3 fatty acids [Fish Oil Concentrate] 1,000 mg Capsule 1,000 mg PO BID glimepiride 2 mg tablet 2 mg PO DAILY acetaminophen [Tylenol] 325 mg tablet 650 mg PO Q4H PRN (Reason: Pain) Javier (with collagen) 7-7-1.5 gram powder in packet 1 packet PO BIDCM Eliquis 2.5 mg tablet 2.5 mg PO BID Primary Care Provider: Livan Mcfarland Referrals: Livan Mcfarland MD [Primary Care Provider] - Disposition Disposition: Acute Care Hospital [facility]
--- NOTE | 2022-07-21 12:33 | EKG12_ITS ---
Test Reason : ALLERGIC REACTION Blood Pressure : / mmHG Vent. Rate : 086 BPM Atrial Rate : 086 BPM P-R Int : 142 ms QRS Dur : 110 ms QT Int : 400 ms P-R-T Axes : 031 -47 110 degrees QTc Int : 478 ms Sinus rhythm with PAC's Left axis deviation Pulmonary disease pattern Incomplete left bundle branch block Nonspecific ST and T wave abnormality Abnormal ECG Confirmed by SHERYL MARES, ANNETTA ([id number]), editor managing director MARCELLA KUHN ([id number]) on 07/22/2022 2:16:12 PM Referred By: LINNETTE Confirmed By:CARLOS SAUCEDO MD
--- NOTE | 2022-07-21 12:33 | RAD_ITS ---
STUDY: X-RAY CHEST REASON FOR EXAM: Male, 87 years old. Weakness TECHNIQUE: Single AP portable view of the chest. COMPARISON: Comparison is made with prior study of 12/15/2018. FINDINGS: A right-sided racquel catheter seen with the tip at the junction of the superior vena cava and right atrium. EKG electrodes are seen. Surgical clips are seen in the left midlung. Mild increased markings at the left lung base suggestive of atelectasis and/or scarring. There is no demonstrated pleural abnormality. Sternal cerclage wires are present from a prior sternotomy. Normal mediastinum and tracie. Normal visualized pulmonary arteries. There is atherosclerotic calcification of the aortic arch with tortuosity. There are diffuse degenerative changes of the visualized thoracic spine. Normal visualized ribs, clavicles, and shoulders. There is no demonstrated abnormality of the visualized soft tissue structures of the upper abdomen. RAD/Chest 1 View (Portable) IMPRESSION: Increased markings at the left lung base suggestive of linear atelectasis and/or scarring. Electronically Signed: Roney Conde MD at 14:03 EST ,
[2022-07-21] MEDS: 0.9% Normal Saline 1,000 ML 999 ML IV ×4 (12:41→17:42)
--- NOTE | 2022-07-21 12:42 | RAD_ITS ---
STUDY: X-RAY - RIGHT FOOT CLINICAL: Male, 87 years old. Also lesion in the right foot. TECHNIQUE: 3 view(s) of the foot. COMPARISON: Comparison is made with prior study dated 07/09/2022. FINDINGS: There is a plantar calcaneal spur. Normal visualized subtalar, talonavicular, calcaneocuboid, tarsal and tarsometatarsal articulations. Normal metatarsi. There is degenerative arthrosis of the metatarsophalangeal joint of the hallux . Normal tibial and fibular sesamoid bones. Normal interphalangeal joint of the great toe. Normal phalanges of the great toe. Normal second through fifth metatarsophalangeal joints. Normal interphalangeal joints and phalanges of the lesser toes. Soft tissue swelling. RAD/Foot min 3 Views IMPRESSION: Degenerative changes at the first metatarsophalangeal joint. No bony abnormality is seen. Plantar spur. Electronically Signed: Roney oCnde MD at 14:04 EST ,
--- NOTE | 2022-07-21 12:44 | CM.ED ---
Addendum entered by Ariana Wells 07/21/22 12:51: BERENICE made referral to Dottie at [facility]. The referral has not been entered yet however, she noted that patient wants home with hospice and wants to be seen today. BERENICE advised MD that family is interested in Hospice referral. Order entered. Original Note: BERENICE received call from Home Health BERENICE Young who stated that she met with patient this morning and he was talking but had a fever, gurgling and couldn't move. The family is interested in Hospice. Hannah indicated patient's family is interested in home with hospice. BERENICE met with patient, patient's , patient's daughter and [facility] and [facility]. Family is requesting hospice referral. Family reports they want [facility]. Family wants patient to come home with hospice. BERENICE faxed referral to [facility]. Ariana GARCIA
[2022-07-21 12:45] LABS: Hematocrit 21.7 % (40-54); Hemoglobin 6.7 g/dL (13.0-16.5); Mean Corp Hgb Conc 30.9 g/dL (32-36); Mean Corpuscular Hgb 31.6 pg (27.0-32.0); Mean Corpuscular Volume 102.4 fL (80-94); POSITIVE COUNT YES; POSITIVE DIFFERENTIAL YES; POSITIVE MORPHOLOGY YES; RBC Distribution Width CV 19.3 % (11.6-14.6); Red Blood Count 2.12 M/mm3 (4.6-6.2); White Blood Count 2.3 K/mm3 (4.4-11.0)
[2022-07-21 12:47] LABS: Platelet Count 43 K/mm3 (150-450)
[2022-07-21 12:48] LABS: Differential Indicated MANUAL DIFF
[2022-07-21 12:59] LABS: ALB/GLOB Ratio 0.7 RATIO (0.9-2.4); AST(SGOT) 15 U/L (15-37); Alanine Aminotransfer ALT/SGPT 19 U/L (16-61); Albumin, Serum 1.7 g/dL (3.2-5.0); Alkaline Phosphatase 84 U/L (45-117); Anion Gap 9 (5-15); BUN 53 mg/dL (7-18); BUN/Creat Ratio 18.2 RATIO (10-20); Chloride 108 mmol/L (98-107); Creatinine, Serum 2.92 mg/dL (0.70-1.30); EST Glomerular Filtration Rate 22 mL/min (>60); Est Glom Filt Rate - Afr Amer 27 mL/min (>60); Globulin 2.5 g/dL (2.2-4.2); Glucose 92 mg/dL (74-106); Protein, Total 4.2 g/dL (6.4-8.2); Sodium Level 138 mmol/L (136-145)
[2022-07-21] MEDS: MethylPREDNISolone 125 MG/2 ML Vial 60 MG IV (13:02)
[2022-07-21 13:05] LABS: Lactic Acid 1.5 mmol/L (0.4-1.9)
[2022-07-21 13:46] LABS: International Normalized Ratio 2.3; Prothrombin Time (Protime)PT. 24.6 SECONDS (11.7-14.9)
[2022-07-21 13:57] LABS: Mucous, Urine 0 SEEN /hpf (<or=2+)
[2022-07-21 14:05] LABS: Color, Urine Amber (Yellow); Glucose, Dipstick Normal (Normal); Ketone-Dipstick 5 mg/dl (Negative); Leukocyte Esterase-Dipstick 500 /ul (Negative); Nitrite-Dipstick Negative (Negative); Occult Blood-Urine 150 /ul (Negative); Protein-Dipstick 100 mg/dl (Negative); Urine Bilirubin Dipstick Negative (Negative); Urine Clarity Sl. Cloudy (Clear); Urine Urobilinogen Normal (Normal)
[2022-07-21 14:10] LABS: Eosinophil 21 % (0-5); Lymphocyte 35 % (19-41); Metamyelocyte 1 % (0-1); Monocyte 11 % (0-10); Myelocyte 2 % (0-0); Neutrophil-Band 2 % (0-5); Neutrophil-Segmented 28 % (47-70); Total Cells Counted 100 (MANUAL DIFF)
[2022-07-21 14:11] LABS: Anisocytosis 2+; Atypical Lymphocyte 1+ %; Hypochromasia 1+; Macrocytosis 1+; Microcytosis 1+; Platelet Estimate MKD DEC (ADEQ); Platelet Morphology LARGE; Reactive Lymphocyte 1+
[2022-07-21 14:12] LABS: Absolute Neutrophil Count 0.7 X10^3/uL (2.0-7.7)
[2022-07-21 14:13] LABS: Absolute Lymphocyte Count 0.81 X10^3/uL (0.83-4.51)
[2022-07-21 14:17] LABS: Red Blood Cells-Urine 5-10 SEEN /hpf (0-5); Squamous Epithelial Cells - UA 0-5 SEEN /hpf (0-5); White Blood Cells 50-100 SEEN /hpf (0-5)
[2022-07-21 14:18] LABS: Bacteria 1+ /hpf (None Seen); Transitional Epithelial - Ur 0-5 SEEN /hpf (0-5)
[2022-07-21 14:20] LABS: Partial Thromboplast Time 51.1 Seconds (24.1-36.2)
--- NOTE | 2022-07-21 14:33 | CM.ED ---
BERENICE Note BERENICE called [facility] and spoke to Kate. The fax referral is not in their system. She will have Liasion meet with the patient and family in the ED. Hannah from home health BERENICE called and advised that patient needs to be established with outpatient clinic and meet with a [facility] and then the [facility] will pay for SNF and Hospice at 100% per [facility] the [facility]. BERENICE asked that Hannah update the family. BERENICE was advised by the RN that patient is being admitted and that patient wants antibiotic treatment and thus hospice will meet with him at discharge. BERENICE met with family including and daughter and patient. They advised patient is being admitted and that they want him treated and then hospice at discharge. Family advised that Hannah had updated them regarding [facility] benefits. BERENICE advised that the hospice care sales consultant may also be able to assist with information regarding VA benefits. BERENICE called Juana at [facility] and advised that family is not going to have hospice at discharge and patient is being admitted. Ariana HARRISON
--- NOTE | 2022-07-21 16:08 | NURSING ---
MED SURG OBS TERELETSKY CYSTITIS, ACUTE KIDNEY INJURY, ANEMIA
--- NOTE | 2022-07-21 19:52 | HP.PCM.HOS_ITS ---
HPI - General General Date of Admission: 07/21/22 Date of Service: 07/21/22 Chief Complaint: Generalized weakness HPI Narrative RANULFO NEGRETE, is a 87 M who presents to the emergency room at [facility] after being brought in by his family due to generalized weakness. Patient was in the hospital recently for gangrene of his right foot, he was advised to have an fuzpx-[id number] amputation which the patient refused, patient's daughter and are present at the time of my examination in the ER- they tell me that the patient was released last weekend to go home. They have not been able to take care of the patient due to generalized weakness, he saw his PCP today and was advised to go to the ER for evaluation. Lab obtained in the ER revealed a decreased white blood cell count of 2.3, hemoglobin was 6.7, platelet count was 43,000, creatinine was elevated at 2.92, BUN 53, and urinalysis showed +1 bacteria and 50-100 WBCs and 5-10 RBCs. On examination, patient has evidence of wet gangrene on his right second and thi rd toes, there is extensive area of dry gangrene involving his right great toe extending into the metatarsal phalangeal joint. Patient has some overall skin redness-patient's daughter states that it was a reaction from Augmentin that the patient was on. The patient's daughter and requested that hospice be involved when the patient is released from the hospital-they thought that hospice would come into their home and take care of the patient 24 hours a day and I notified them that this was not going to be the case with hospice. I advised that they put some thought into the patient going to an extended care facility for rehab services, he is not having any pain from the gangrene in his right foot so I do not think inpatient hospice would be an option at this time for the patient. Patient does not want aggressive treatment such as pressor agents, he wants to be a DNR CC arrest without intubation, the patient and the patient's family understand that the gangrene in the patient's right foot will not resolve with antibiotics. Patient will be admitted to [place] [address] for acute on chronic anemia, he will be given 2 units of packed red blood cells, patient will be maintained on IV antibiotics, patient will be given IV fluids due to his elevated creatinine. Prognosis overall is poor for the patient, he was hypotensive in the emergency room and I notified the floor that patient does not want aggressive treatment such as pressor agents or transfer to the ICU. 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 Bilateral pulmonary embolism (01/2019) Bladder cancer Chemotherapy management, encounter for Diabetes Discoloration of skin Dysuria Encounter for education Essential (primary) hypertension Fall Former smoker Hematuria, gross Hyperlipidemia Injury of back Large B-cell lymphoma Low back pain Lower urinary tract symptoms Lymphoma MDS (myelodysplastic syndrome) Obesity Pancytopenia Peripheral vascular occlusive disease Prostate disease Recurrent right inguinal hernia Right inguinal hernia Right leg pain Scrotal abscess Secondary pulmonary arterial hypertension Sleep apnea 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 artery Thyromegaly Type 2 diabetes mellitus Venous insufficiency (chronic) (peripheral) VTE (venous thromboembolism) Wears dentures Home Medications lisinopril 20 mg tablet 20 mg PO BID Blood pressure 04/05/18 [History Last Taken 07/08/22] lovastatin 40 mg tablet 40 mg PO QHS CHOLESTEROL 04/05/18 [History Last Taken 07/08/22] metformin 1,000 mg tablet 1,000 mg PO BID DIABETES 04/05/18 [History Last Taken 07/08/22] tamsulosin 0.4 mg capsule 0.4 mg PO QHS URINE FLOW 09/08/18 [History Last Taken 07/08/22] metoprolol tartrate 50 mg tablet 50 mg PO BID blood pressure 09/19/18 [History Last Taken 07/09/22] cholecalciferol (vitamin D3) 25 mcg (1,000 unit) tablet 25 mcg PO DAILY supplement 01/24/19 [History Last Taken 07/08/22] lidocaine-prilocaine 2.5 %-2.5 % topical cream 1 applic topical ONCE PRN port access 30 days #30 grams 05/20/21 [Rx Last Taken Unknown] apixaban 2.5 mg tablet (Eliquis) 2.5 mg PO BID blood thinner 12/21/21 [History Last Taken 1 Week Ago ~07/02/22] lenalidomide 10 mg capsule (Revlimid) 10 mg PO DAILY myeloma 07/09/22 [History Last Taken 07/08/22] amoxicillin 875 mg-potassium clavulanate 125 mg tablet 1 tab PO BID #20 tabs 07/17/22 [Rx Last Taken Unknown] doxycycline hyclate 100 mg capsule 100 mg PO BID #20 caps 07/17/22 [Rx Last T aken Unknown] acetaminophen 325 mg tablet (Tylenol) 650 mg PO Q4H PRN Pain 07/21/22 [History Last Taken Unknown] arginine 7 gram-glutam 7 gram-CaHMB 1.5 upud-jeooj-hk-min oral pwd pkt (Javier (with collagen)) 1 packet PO BIDCM supplement 07/21/22 [History Last Taken Unknown] glimepiride 2 mg tablet 2 mg PO DAILY diabetes 07/21/22 [History Last Taken Unknown] omega-3 fatty acids 1,000 mg capsule 1,000 mg PO BID supplement 07/21/22 [History Last Taken Unknown] Allergy/AdvReac Type Severity Reaction Status Date / Time amoxicillin [From Augmentin] Allergy Rash Verified 07/21/22 16:26 clavulanic acid Allergy Rash Verified 07/21/22 16:26 [From Augmentin] Family History Sister Breast cancer Diabetes Mother Diabetes Brother Heart disease Hypertension Surgical History Femoral-popliteal bypass graft occlusion, right H/O coronary artery bypass surgery (2006) H/O hernia repair History of appendectomy History of bladder surgery (09/2019) History of cataract extraction History of femoral angiogram (11/21/12) History of herniorrhaphy History of right-sided carotid endarterectomy History of tonsillectomy and adenoidectomy History of transurethral destruction of bladder lesion (12/2018) Hx of lymph node biopsy Social History Smoking Status: Former smoker how long ago did patient quit smokin years ago alcohol intake: current alcohol intake frequency: a few times a week substance use type: does not use caffeine: Yes Type: coffee Number of servings: 2 lars/caodaism: None seatbelt use: always do you feel safe at home: Yes ROS Constitutional Constitutional: Reports fatigue, malaise and weakness; Denies anorexia, change in weight, chills, fever(s) or night sweats Eyes Eyes: Denies blurry vision, change in vision, discharge from eye(s) or eye pain Cardiovascular Cardiovascular: Denies chest pain, claudication, edema or palpitations Respiratory/Chest Respiratory/Chest: Denies cough, dyspnea, excessive phlegm production, hemoptysis, productive cough, shortness of breath at rest or shortness of breath with exertion Gastrointestinal Gastrointestinal: Denies abdominal pain, constipation, diarrhea, hematemesis, hematochezia, melena, nausea or vomiting Genitourinary Genitourinary: Denies difficulty urinating, dysuria, hematuria, nocturia, urinary frequency, urinary hesitancy, urinary incontinence or urinary urgency Musculoskeletal Musculoskeletal: Reports other Details: Patient has extensive gangrene of the right foot involving the first 3 toes ; Denies back pain, joint pain, joint stiffness, joint swelling, myalgias or neck pain Neurologic Neurologic: Denies abnormal gait, abnormal speech, confusion, disequilibrium, dizziness, focal weakness, headache(s), loss of vision, numbness, other visual disturbances, paresthesias, syncope or tingling Psychiatric Psychiatric: Denies anxiety, cognitive impairment, depression, irritability, mood swings or suicidal ideation Endocrine Endocrinology: Denies change in body appearance, cold intolerance, excessive sweating, heat intolerance, polydipsia or polyuria Hematologic/Lymphatic Hematologic/Lymphatic: Denies none, anemia, easy bleeding, easy bruising or lymphadenopathy Allergic/Immunologic Allergic/Immunologic: Denies rhinitis, urticaria, eczemia or asthma Vital Signs Vital Signs Vital Signs: 07/21/22 12:08 07/21/22 12:08 07/21/22 12:36 Temperature 98.2 F 98.2 F 98.2 F Temperature Source Oral Oral Oral Pulse Rate 89 90 90 Respiratory Rate 16 14 14 Blood Pressure 63/41 L 66/40 L Blood Pressure Mean 48 48 Blood Pressure Source Blood Pressure Position Blood Pressure Location Pulse Ox 94 99 98 Oxygen Delivery Method Nasal Cannula Nasal Cannula Nasal Cannula Oxygen Flow Rate (L/min) 4 4 4 07/21/22 12:36 07/21/22 12:30 07/21/22 12:45 Temperature Temperature Source Pulse Rate 86 86 Respiratory Rate 17 16 Blood Pressure 69/43 L 76/47 L Blood Pressure Mean 51 56 Blood Pressure Source Blood Pressure Position Blood Pressure Location Pulse Ox 98 97 Oxygen Delivery Method Nasal Cannula Nasal Cannula Nasal Cannula Oxygen Flow Rate (L/min) 4 4 4 07/21/22 13:00 07/21/22 13:15 07/21/22 13:30 Temperature Temperature Source Pulse Rate 85 86 89 Respiratory Rate 16 14 17 Blood Pressure 75/43 L 77/43 L 83/45 L Blood Pressure Mean 53 54 57 Blood Pressure Source Blood Pressure Position Blood Pressure Location Pulse Ox 95 95 95 Oxygen Delivery Method Nasal Cannula Nasal Cannula Nasal Cannula Oxygen Flow Rate (L/min) 4 4 4 07/21/22 13:45 07/21/22 14:00 07/21/22 13:32 Temperature 98.4 F Temperature Source Oral Pulse Rate 86 83 89 Respiratory Rate 16 17 17 Blood Pressure 73/40 L 71/39 L 83/45 L Blood Pressure Mean 51 49 57 Blood Pressure Source Blood Pressure Position Blood Pressure Location Pulse Ox 93 97 95 Oxygen Delivery Method Nasal Cannula Room Air Nasal Cannula Oxygen Flow Rate (L/min) 4 4 07/21/22 14:17 07/21/22 15:00 07/21/22 15:15 Temperature 98.0 F 97.2 F L 98.2 F Temperature Source Oral Temporal Oral Pulse Rate 81 83 83 Respiratory Rate 15 18 18 Blood Pressure 72/44 L 88/57 L 88/52 L Blood Pressure Mean 53 67 64 Blood Pressure Source Blood Pressure Position Blood Pressure Location Pulse Ox 96 99 98 Oxygen Delivery Method Room Air Nasal Cannula Room Air Oxygen Flow Rate (L/min) 3 07/21/22 16:15 07/21/22 16:15 07/21/22 17:00 Temperature 97.6 F L Temperature Source Oral Pulse Rate 84 84 81 Respiratory Rate 16 16 18 Blood Pressure 91/52 L 91/52 L 82/50 L Blood Pressure Mean 65 65 60 Blood Pressure Source Blood Pressure Position Blood Pressure Location Pulse Ox 99 99 96 Oxygen Delivery Method Nasal Cannula Nasal Cannula Nasal Cannula Oxygen Flow Rate (L/min) 3 3 3 07/21/22 18:00 07/21/22 18:45 Temperature 97.8 F Temperature Source Temporal Pulse Rate 86 85 Respiratory Rate 20 H 19 H Blood Pressure 97/55 L 98/53 L Blood Pressure Mean 69 68 Blood Pressure Source Monitor Blood Pressure Position Semi-Fowlers Blood Pressure Location Right Arm Pulse Ox 92 98 Oxygen Delivery Method Nasal Cannula Nasal Cannula Oxygen Flow Rate (L/min) 3 4 Weight Weight: 114.714 kg Body Mass Index (BMI) 32.4 Physical Exam Const alert, oriented x3, no apparent distress and average body habitus General Appearance: cooperative, well kempt and well developed Orientation / Consciousness: awake, oriented to person, oriented to place and oriented to time HEENT normocephalic, head/scalp atraumatic, hearing grossly normal bilaterally and moist oral mucous membranes Eyes PERRL, EOMs intact bilaterally and conjunctivae normal Neck supple, no JVD, thyroid normal and no carotid bruits General: trachea midline Resp normal respiratory effort, no retractions, no use of accessory muscles and clear to auscultation bilaterally Auscultation: Negative for rales, rhonchi or wheezes Cardio regular rate, regular rhythm, S1 normal heart sound, S2 normal heart sound, no murmurs, no rub and no gallops GI normal to inspection, nondistended, normoactive bowel sounds, soft to palpation, non-tender and non-distended Extremity Extremity Narrative: There is extensive gangrene of the patient's right great toe extending into the first metatarsal phalangeal joint, there is generalized redness of the right f oot noted, there is also wet gangrene of the second and third toes noted. Skin Skin Narrative: Extensive gangrene of the right foot is noted as above Neuro oriented x3 and CN's II-XII intact bilaterally Sensorium / Orientation: awake and alert Speech: speech normal Psych affect normal Results Lab / Micro Data Result Diagrams: 07/21/22 12:29 07/21/22 12:29 Labs: Laboratory Results - last 24 hr 07/21/22 12:29: WBC 2.3 L, RBC 2.12 L, Hgb 6.7 L, Hct 21.7 L, MCV 102.4 H, MCH 31.6, MCHC 30.9 L, RDW Std Deviation 71.0 H, RDW Coeff of Agustina 19.3 H, Plt Count 43 L*, Neut % (Auto) Not Reportable, Absolute Neuts (auto) 0.7 L, Absolute Lymphs (auto) 0.81 L, Total Counted 100, Neutrophils % (Manual) 28 L, Band Neutrophils % 2, Lymphocytes % (Manual) 35, Monocytes % (Manual) 11 H, Eosinophils % (Manual) 21 H, Metamyelocytes % 1, Myelocytes % 2 H, Diff Path Review May foll, Atypical Lymphocytes 1+, Reactive Lymphocytes 1+, Platelet Estimate MKD DEC, Plt Morphology Comment LARGE, Hypochromasia 1+, Anisocytosis 2+, Microcytosis 1+, Macrocytosis 1+ 07/21/22 12:29: PT 24.6 H, INR 2.3, APTT 51.1 H 07/21/22 12:29: Sodium 138, Potassium 4.0, Chloride 108 H, Carbon Dioxide 21.0, Anion Gap 9, BUN 53 H, Creatinine 2.92 H, Estim Creat Clear Calc 21.50, Est GFR (MDRD) Af Amer 27 L, Est GFR (MDRD) Non-Af 22 L, BUN/Creatinine Ratio 18.2, Glucose 92, Calcium 8.0 L, Total Bilirubin 0.40, AST 15, ALT 19, Alkaline Phosphatase 84, Total Protein 4.2 L, Albumin 1.7 L, Globulin 2.5, Albumin/Globulin Ratio 0.7 L 07/21/22 12:29: Lactic Acid 1.5 07/21/22 13:48: Urine Color Lalita, Urine Clarity Sl. Cloudy, Urine pH 5.0, Ur Specific [place] 1.020, Urine Protein 100 H, Urine Glucose (UA) Normal, Urine Ketones 5 H, Urine Occult Blood 150 H, Urine Nitrite Negative, Urine Bilirubin Negative, Urine Urobilinogen Normal, Ur Leukocyte Esterase 500 H, Urine RBC 5-10 SEEN, Urine WBC 50-100 SEEN, Ur Squamous Epith Cells 0-5 SEEN, Ur Transition Epith Cell 0-5 SEEN, Urine Bacteria 1+, Urine Mucus 0 SEEN Assessment & Plan Assessment/Plan (1) Anemia: PLAN: Plan 1. Acute on chronic anemia secondary to myelodysplastic syndrome-patient [facility] be [facility], he will be transfused 2 units of packed red blood cells, repeat CBC will be performed in the morning #2 extensive gangrene of the right foot-I have elected to place the patient on meropenem for now, treatment of this however is futile at this point, patient has severe peripheral vascular disease and his only option is to have an gcxxq-her-qteo amputation on the right which she refuses at this time. Family is aware of this also. #3 acute kidney injury-patient will be given IV fluids, labs will be monitored #4 chronic use of anticoagulation-I have elected to leave the patient on his Eliquis at this time, I do not believe he is bleeding anywhere #5 hypoxic respiratory failure-patient states he was discharged in the hospital on 4 L via nasal cannula oxygen, family is not aware of any particular reason why he would need the oxygen other than a low pulse ox, patient's chest x-ray was reviewed by myself-I do not see any evidence of congestive heart failure or pneumonia at this time. Pulse ox will be monitored. #6 generalized debility secondary to advanced age and multiple medical problems- PT and OT will see the patient, he will probably need placement in a penitentiary facility-again I do not think the inpatient hospice unit would be appropriate for this patient at this time-he does not complain of any discomfort with his gangrene. #7 type 2 diabetes-patient's blood sugars will be monitored, sliding scale insulin will be given as needed #8 severe peripheral vascular disease-there is no current treatment for this, again patient refuses an yayjs-twy-ebzj amputation on the right leg #9 myelodysplastic syndrome-complicates care, management, recovery, and prognosis #10 coronary artery disease-this appears stable at this time, patient will remain on his present medications Again the patient requests a DNR CC arrest without intubation CODE STATUS, there will be no transfer to the ICU or use of pressor agents for this patient. Total clinical time spent by myself addressing the patient's medical issues, reviewing the patient's medical data, and collaborating with patient's care team: 75 minutes Charges/Coding Visit Charges Inpatient E&M: 78963 Init Hosp L3
[2022-07-21] MEDS: 0.9% Normal Saline 1,000 ML 100 ML IV (20:10)
[2022-07-21] MEDS: 0.9% Saline Lock 10 ML Syringe IV ×2 (20:13→22:11)
[2022-07-21] MEDS: DiphenhydrAMINE 50 MG/ML Syringe 25 MG IV (22:10)
[2022-07-21] MEDS: Glucerna Shake 120 ML LIQUID PO (22:31)
[2022-07-21] MEDS: APIXABAN 2.5 MG TABLET (WCH) PO (22:32)
[2022-07-21] MEDS: Tamsulosin HCl 0.4 MG Capsule PO (22:32)
[2022-07-21] MEDS: Insulin Lispro 100 UNIT/ML INSULN.PEN SC (22:36)
[2022-07-21 22:51] LABS: Bedside Glucose 243 mg/dL (74-106)
[2022-07-22] VITALS (12 sets, daily range): BP systolic 88–118; BP diastolic 46–59; PULSE 71–88; RESP 16–20; TEMP 36.1–36.5; O2SAT 94–100
[2022-07-22] MEDS: 0.9% Saline Lock 10 ML Syringe IV (05:08)
[2022-07-22] MEDS: Insulin Lispro 100 UNIT/ML INSULN.PEN SC ×4 (06:35→19:54)
[2022-07-22 06:39] LABS: Hematocrit 31.8 % (40-54); Hemoglobin 9.5 g/dL (13.0-16.5); Mean Corp Hgb Conc 29.9 g/dL (32-36); Mean Corpuscular Volume 107.1 fL (80-94); POSITIVE COUNT YES; POSITIVE DIFFERENTIAL YES; POSITIVE MORPHOLOGY YES; RBC Distribution Width CV 19.1 % (11.6-14.6); RBC Distribution Width SD 75.1 fl (35.1-43.9); Red Blood Count 2.97 M/mm3 (4.6-6.2); White Blood Count 2.6 K/mm3 (4.4-11.0)
[2022-07-22 06:43] LABS: Differential Indicated MANUAL DIFF
[2022-07-22 06:44] LABS: Platelet Count 35 K/mm3 (150-450)
[2022-07-22 06:56] LABS: Bedside Glucose 207 mg/dL (74-106)
[2022-07-22 06:57] LABS: Eosinophil 19 % (0-5); Lymphocyte 18 % (19-41); Metamyelocyte 3 % (0-1); Monocyte 19 % (0-10); Myelocyte 5 % (0-0); Neutrophil-Band 9 % (0-5); Neutrophil-Segmented 26 % (47-70); Nucleated Red Bld Cells,Manual 1 % (0-5); Promyelocyte 1 % (0-0); Total Cells Counted 100 (MANUAL DIFF)
[2022-07-22 06:58] LABS: Absolute Neutrophil Count 0.9 X10^3/uL (2.0-7.7); Anisocytosis 2+; Burr Cells 1+; Macrocytosis 2+; Neutrophil # 0.89 X10^3/uL (2.7-7.7); Ovalocyte RARE; Platelet Estimate MKD DEC (ADEQ)
[2022-07-22 06:59] LABS: Absolute Lymphocyte Count 0.46 X10^3/uL (0.83-4.51); Lymphocyte # 0.46 X10^3/ul (0.83-4.51)
--- NOTE | 2022-07-22 07:42 | WOUNDNOTE ---
wound photo: right foot
--- NOTE | 2022-07-22 07:42 | WOUNDNOTE ---
wound photo: right foot
--- NOTE | 2022-07-22 08:14 | PN.HOSP_ITS ---
Subjective Subjective Denies any complaints. Still interested in seeing what can be done to get him and asking about SNF. Has diffuse rash, noted prior to discharge Objective Data Objective Data Vital Signs: Vital Signs Temp Pulse Resp BP Pulse Ox O2 Del Method O2 Flow Rate 36.3 C L 72 20 H 105/51 L 95 Nasal Cannula 5 07/22/22 05:02 07/22/22 05:02 07/22/22 05:02 07/22/22 05:02 07/22/22 07:10 07/22/22 07:10 07/22/22 07:10 Oxygen Flow Rate (L/min) 5 Oxygen Delivery Method Nasal Cannula Weight: 114.714 kg Body Mass Index (BMI) 32.4 Intake & Output: Intake and Output for Last 24 Hours 07/20/22 07/21/22 07/22/22 23:59 23:59 23:59 Intake Total 4876.67 / 4876.67 800 / 800 Balance 4876.67 / 4876.67 800 / 800 Lab / Micro Data Result Diagrams: 07/22/22 06:25 07/22/22 06:25 Labs: Laboratory Results - last 24 hr 07/21/22 12:29: WBC 2.3 L, RBC 2.12 L, Hgb 6.7 L, Hct 21.7 L, MCV 102.4 H, MCH 31.6, MCHC 30.9 L, RDW Std Deviation 71.0 H, RDW Coeff of Agustina 19.3 H, Plt Count 43 L*, Neut % (Auto) Not Reportable, Absolute Neuts (auto) 0.7 L, Absolute Lymphs (auto) 0.81 L, Total Counted 100, Neutrophils % (Manual) 28 L, Band Neutrophils % 2, Lymphocytes % (Manual) 35, Monocytes % (Manual) 11 H, Eos[place] phils % (Manual) 21 H, Metamyelocytes % 1, Myelocytes % 2 H, Diff Path Review May foll, Atypical Lymphocytes 1+, Reactive Lymphocytes 1+, Platelet Estimate MKD DEC, Plt Morphology Comment LARGE, Hypochromasia 1+, Anisocytosis 2+, Microcytosis 1+, Macrocytosis 1+ 07/21/22 12:29: PT 24.6 H, INR 2.3, APTT 51.1 H 07/21/22 12:29: Sodium 138, Potassium 4.0, Chloride 108 H, Carbon Dioxide 21.0, Anion Gap 9, BUN 53 H, Creatinine 2.92 H, Estim Creat Clear Calc 21.50, Est GFR (MDRD) Af Amer 27 L, Est GFR (MDRD) Non-Af 22 L, BUN/Creatinine Ratio 18.2, Glucose 92, Calcium 8.0 L, Total Bilirubin 0.40, AST 15, ALT 19, Alkaline Phosphatase 84, Total Protein 4.2 L, Albumin 1.7 L, Globulin 2.5, Albumin/Globulin Ratio 0.7 L 07/21/22 12:29: Lactic Acid 1.5 07/21/22 13:48: Urine Color Lalita, Urine Clarity Sl. Cloudy, Urine pH 5.0, Ur Specific [place] 1.020, Urine Protein 100 H, Urine Glucose (UA) Normal, Urine Ketones 5 H, Urine Occult Blood 150 H, Urine Nitrite Negative, Urine Bilirubin Negative, Urine Urobilinogen Normal, Ur Leukocyte Esterase 500 H, Urine RBC 5-10 SEEN, Urine WBC 50-100 SEEN, Ur Squamous Epith Cells 0-5 SEEN, Ur Transition Epith Cell 0-5 SEEN, Urine Bacteria 1+, Urine Mucus 0 SEEN 07/21/22 20:10: Blood Type O NEGATIVE, Antibody Screen NEGATIVE, Crossmatch See Detail 07/21/22 22:29: POC Glucose 243 H 07/22/22 06:25: WBC 2.6 L, RBC 2.97 L, Hgb 9.5 L, Hct 31.8 L, MCV 107.1 H, MCH 32.0, MCHC 29.9 L, RDW Std Deviation 75.1 H, RDW Coeff of Agustina 19.1 H, Plt Count 35 L*, MPV TNP, Neut % (Auto) Not Reportable, Absolute Neuts (auto) 0.9 L, Absolute Lymphs (auto) 0.46 L, Total Counted 100, Neutrophils % (Manual) 26 L, Band Neutrophils % 9 H, Lymphocytes % (Manual) 18 L, Monocytes % (Manual) 19 H, Eosinophils % (Manual) 19 H, Metamyelocytes % 3 H, Myelocytes % 5 H, Promyelocytes % 1 H, Nucleated RBCs/100 WBC 1, Diff Path Review May foll, Platelet Estimate MKD DEC, Anisocytosis 2+, Macrocytosis 2+, Ovalocytes RARE, Gabrielle Cells 1+ 07/22/22 06:34: POC Glucose 207 H Radiography Diagnostic Testing: Radiology Impression Chest X-Ray 07/21/22 12:33 IMPRESSION: Increased markings at the left lung base suggestive of linear atelectasis and/or scarring. Electronically Signed: Roney Conde MD at 14:03 EST , Foot X-Ray 07/21/22 12:42 IMPRESSION: Degenerative changes at the first metatarsophalangeal joint. No bony abnormality is seen. Plantar spur. Electronically Signed: Roney Conde MD at 14:04 EST , Physical Exam Const alert and no apparent distress Constitutional Narrative: up in bed. no respiratory distress. no conversational dyspnea. Resp normal respiratory effort, no retractions, no use of accessory muscles and clear to auscultation bilaterally Cardio regular rate, regular rhythm, S1 normal heart sound and S2 normal heart sound GI normal to inspection, nondistended, normoactive bowel sounds and soft to palpation Extremity Extremity Narrative: right foot wrapped. I reviewed the photos taken today now showing gangrene of 2nd and 3rd toes on right foot. still with Skin Skin Narrative: macular papular rash. Assessment & Plan Assessment/Plan (1) Acute blood loss anemia: PLAN: Transfused 2 units PRBCs 2/2 MDS Keep Hg greater than of equal to 8. (2) ADAM (acute kidney injury): PLAN: Ongoing Baseline creatinine 1.13. Continue IVF, avoid nephrotoxic agents. (3) Gangrene of right foot: PLAN: Worsening on meropenem not amenable to surgery, other than an ADAM, which the patient declined. (4) Atherosclerosis of [place] arteries of extremities with gangrene, right leg: PLAN: Angiogram on 12: SFA/popliteal occulusion Not amenable to bypass Definitive treatment would be an AKA, which pt declines. (5) Debility: PLAN: due to multiple medical comorbidities PT OT PLAN: Plan Chronic conditions: * chronic use of anticoagulation-I have elected to leave the patient on his Eliquis at this time, I do not believe he is bleeding anywhere * type 2 diabetes-patient's blood sugars will be monitored, sliding scale insulin will be given as needed * myelodysplastic syndrome-complicates care, management, recovery, and prognosis * coronary artery disease-this appears stable at this time, patient will remain on his present medications Again the patient requests a DNR CC arrest without intubation CODE STATUS, there will be no transfer to the ICU or use of pressor agents for this patient. Advance care planning: Spent an additional 30 minutes where I discussed with patient and his step kids. Explained that given that he is currently stable my concern is that he may eventually further decompensate given his necrosis and high likelihood of progression to severe infection. I recommended hospice. Hospice to meet with patient and family today to address goals of care and see if the patient would wish to move forward with hospice or not. Charges/Coding Visit Charges Inpatient E&M: 61642 Subs Hosp L2 Procedures Hospitalists Procedures: 64624 Critial Care Addl 30 Min
[2022-07-22] MEDS: Juven (unflavored) Packet 1 PACKET PO (08:36)
[2022-07-22 08:48] LABS: Anion Gap 9 (5-15); BUN 60 mg/dL (7-18); BUN/Creat Ratio 21.3 RATIO (10-20); Calcium,Total 7.9 mg/dL (8.5-10.1); Chloride 109 mmol/L (98-107); Creatinine, Serum 2.82 mg/dL (0.70-1.30); EST Glomerular Filtration Rate 23 mL/min (>60); Est Glom Filt Rate - Afr Amer 28 mL/min (>60); Estimated Creatinine Clearance 22.27 ml/min; Glucose 227 mg/dL (74-106); Potassium 4.5 mmol/L (3.5-5.1); Sodium Level 135 mmol/L (136-145)
[2022-07-22] MEDS: Metoprolol Tartrate 50 MG Tablet PO (10:21)
[2022-07-22] MEDS: APIXABAN 2.5 MG TABLET (WCH) PO ×2 (10:21→19:46)
[2022-07-22] MEDS: Glucerna Shake 120 ML LIQUID PO ×3 (10:23→17:07)
[2022-07-22] MEDS: Menthol/Lanolin/Calamine/Znox 113 GM Tube 1 APPLIC TOPICAL ×2 (11:07→19:46)
[2022-07-22 11:35] LABS: Bedside Glucose 241 mg/dL (74-106)
--- NOTE | 2022-07-22 12:32 | CASEMGMT ---
SARAHY BHATTI Readmission Note Previous Admission:?07/09/22-07/18/22?? Diagnosis:?dry gangrene?? DC Disposition: Home with?[facility], po atb Current Admission? Current Diagnosis: ADAM, anemia, debility Pt presents to ER after being at PCP office with recommendation of coming to ER with complaints of generalized weakness and unable to care for self at home since admission as well as a rash. Pt was made aware that he needed AKA but declined. Consult placed in ER for hospice per pt request. Pt then wanted to be treated with IV antibiotics; therefore admitted. Plan is for hospice consult prior to dc. Notified [facility] Ping of plan. SARAHY BHATTI to follow. DC Plan: Hospice c/s
--- NOTE | 2022-07-22 15:13 | CASEMGMT ---
Social Work Per physician, pt and family would like to meet with hospice to discuss services. Referral was made to [facility] yesterday. Phone call to Kate and [facility] and informed pt and family requesting to speak with hospice. Kate states that Liaison met with family last night and also that Liaison is currently at the hospital and will meet with family today at 3:30. Pt and family made aware and agreeable to meet with medical liaison at this time. SANDRA Plascencia
[2022-07-22 17:36] LABS: Bedside Glucose 214 mg/dL (74-106)
[2022-07-22] MEDS: Tamsulosin HCl 0.4 MG Capsule PO (19:47)
[2022-07-22 20:36] LABS: Bedside Glucose 187 mg/dL (74-106)
[2022-07-23 04:50] VITALS: BP 131/68; PULSE 106; RESP 18; TEMP 36.6; O2SAT 95
[2022-07-23 06:35] LABS: Bedside Glucose 102 mg/dL (74-106)
[2022-07-23 06:51] LABS: Absolute Lymphocyte Count 0.69 X10^3/uL (0.83-4.51); Absolute Neutrophil Count 0.8 X10^3/uL (2.0-7.7); Basophil# 0.02 X10^3/uL; Basophil% 0.7 % (0-1); Eosinophil# 0.83 X10^3/uL; Eosinophils% 29.4 % (0-5); Hematocrit 28.6 % (40-54); Hemoglobin 8.9 g/dL (13.0-16.5); Lymphocyte # 0.69 X10^3/ul (0.83-4.51); Lymphocyte % 24.5 % (19-41); Mean Corp Hgb Conc 31.1 g/dL (32-36); Mean Corpuscular Hgb 31.1 pg (27.0-32.0); Monocyte# 0.46 X10^3/uL; Monocyte% 16.3 % (0-10); NRBC Flagged by Analyzer 0 % (0-5); Neutrophil % 28.4 % (47-70); POSITIVE COUNT YES; POSITIVE DIFFERENTIAL YES; POSITIVE MORPHOLOGY YES; RBC Distribution Width CV 18.6 % (11.6-14.6); RBC Distribution Width SD 68.6 fl (35.1-43.9); Red Blood Count 2.86 M/mm3 (4.6-6.2); White Blood Count 2.8 K/mm3 (4.4-11.0)
[2022-07-23 06:59] LABS: Differential Indicated SCAN CRITERIA MET; Platelet Count 37 K/mm3 (150-450)
[2022-07-23 07:10] LABS: Differential Comment SCANNED; Platelet Estimate MKD DEC (ADEQ)
[2022-07-23 07:17] LABS: Anion Gap 12 (5-15); BUN 62 mg/dL (7-18); BUN/Creat Ratio 27.2 RATIO (10-20); Calcium,Total 7.8 mg/dL (8.5-10.1); Chloride 106 mmol/L (98-107); Creatinine, Serum 2.28 mg/dL (0.70-1.30); EST Glomerular Filtration Rate 29 mL/min (>60); Est Glom Filt Rate - Afr Amer 35 mL/min (>60); Estimated Creatinine Clearance 27.54 ml/min; Glucose 114 mg/dL (74-106); Potassium 4.3 mmol/L (3.5-5.1); Sodium Level 134 mmol/L (136-145)
--- NOTE | 2022-07-23 08:36 | PCM.PN.HOSP ---
Subjective Subjective confused today. denies pain Objective Data Objective Data Vital Signs: Vital Signs Temp Pulse Resp BP Pulse Ox O2 Del Method O2 Flow Rate 36.6 C 106 H 18 131/68 H 95 Nasal Cannula 2 07/23/22 04:50 07/23/22 04:50 07/23/22 04:50 07/23/22 04:50 07/23/22 04:50 07/23/22 08:09 07/23/22 04:50 Oxygen Flow Rate (L/min) 2 Oxygen Delivery Method Nasal Cannula Weight: 114.714 kg Body Mass Index (BMI) 32.4 Intake & Output: Intake and Output for Last 24 Hours 07/21/22 07/22/22 07/23/22 23:59 23:59 23:59 Intake Total 4876.67 / 4876.67 1723.33 / 1723.33 240 / 240 Balance 4876.67 / 4876.67 1723.33 / 1723.33 240 / 240 Lab / Micro Data Result Diagrams: 07/23/22 06:40 07/23/22 06:40 Labs: Laboratory Results - last 24 hr 07/22/22 06:25: Sodium 135 L, Potassium 4.5, Chloride 109 H, Carbon Dioxide 17.0 L, Anion Gap 9, BUN 60 H, Creatinine 2.82 H, Estim Creat Clear Calc 22.27, Est GFR (MDRD) Af Amer 28 L, Est GFR (MDRD) Non-Af 23 L, BUN/Creatinine Ratio 21.3 H, Glucose 227 H, Calcium 7.9 L 07/22/22 11:04: POC Glucose 241 H 07/22/22 17:03: POC Glucose 214 H 07/22/22 19:52: POC Glucose 187 H 07/23/22 06:15: POC Glucose 102 07/23/22 06:40: WBC 2.8 L, RBC 2.86 L, Hgb 8.9 L, Hct 28.6 L, MCV 100.0 H D, MCH 31.1, MCHC 31.1 L, RDW Std Deviation 68.6 H, RDW Coeff of Agustina 18.6 H, Plt Count 37 L*, MPV TNP, Immature Gran % (Auto) 0.700, Neut % (Auto) 28.4 L, Lymph % (Auto) 24.5, [place] % (Auto) 16.3 H, Eos % (Auto) 29.4 H, Baso % (Auto) 0.7, Absolute Neuts (auto) 0.8 L, Absolute Lymphs (auto) 0.69 L, Nucleated RBC % 0, Differential Comment SCANNED, Diff Path Review November foll, Platelet Estimate MKD 07/23/22 06:40: Sodium 134 L, Potassium 4.3, Chloride 106, Carbon Dioxide 16.0 L, Anion Gap 12, BUN 62 H, Creatinine 2.28 H, Estim Creat Clear Calc 27.54, Est GFR (MDRD) Af Amer 35 L, Est GFR (MDRD) Non-Af 29 L, BUN/Creatinine Ratio 27.2 H, Glucose 114 H, Calcium 7.8 L Micro: Microbiology 07/21/22 13:42 Blood Culture (Wb) - Port Blood Culture - Preliminary No growth in 48 hours. 07/21/22 12:29 Blood Culture (Wb) - Port Blood Culture - Preliminary No growth in 48 hours. Physical Exam Const alert and no apparent distress Orientation / Consciousness: confused Resp normal respiratory effort, no retractions, no use of accessory muscles and clear to auscultation bilaterally Cardio regular rate, regular rhythm, S1 normal heart sound and S2 normal heart sound GI normal to inspection, nondistended, normoactive bowel sounds, soft to palpation, non-tender and non-distended Extremity Extremity Narrative: right foot wrapped Skin Skin Narrative: confluent macular papular rash. Assessment & Plan Assessment/Plan (1) Acute blood loss anemia: PLAN: Transfused 2 units PRBCs 2/2 MDS Keep Hg greater than of equal to 8. (2) ADAM (acute kidney injury): PLAN: Improved Baseline creatinine 1.13. avoid nephrotoxic agents. (3) Gangrene of right foot: PLAN: Worsening on meropenem not amenable to surgery, other than an ADAM, which the patient declined. (4) Atherosclerosis of [place] arteries of extremities with gangrene, right leg: PLAN: Angiogram on 12: SFA/popliteal occulusion Not amenable to bypass Definitive treatment would be an AKA, which pt declines. (5) Debility: PLAN: due to multiple medical comorbidities PT OT (6) Drug rash: PLAN: ongoing suspect PCN (was on amox/CA) DC meropenem PLAN: Plan Chronic conditions: chronic use of anticoagulation-I have elected to leave the patient on his Eliquis at this time, I do not believe he is bleeding anywhere type 2 diabetes-patient's blood sugars will be monitored, sliding scale insulin will be given as needed myelodysplastic syndrome-complicates care, management, recovery, and prognosis coronary artery disease-this appears stable at this time, patient will remain on his present medications Again the patient requests a DNR CC arrest without intubation CODE STATUS, there will be no transfer to the ICU or use of pressor agents for this patient. 07/22: I discussed with patient and his step kids. Explained that given that he is currently stable my concern is that he may eventually further decompensate given his necrosis and high likelihood of progression to severe infection. I recommended hospice. Hospice to meet with patient and family today to address goals of care and see if the patient would wish to move forward with hospice or not. 07/23: Discussed with family. Had a family meeting where he discussed with the patient's , daughters as well as other family members. Still recommend hospice. They are unsure if they can manage him at home at this time. Last for hospice to come and reevaluate to see if the patient would be a candidate for the inpatient hospice unit. If that does not then they will try to do facilitate him going home with hospice on the . Charges/Coding Visit Charges Inpatient E&M: 98659 Subs Hosp L2
--- NOTE | 2022-07-23 08:55 | CASEMGMT ---
Social Work SW received VM from Bonilla at [facility] who states pt and family signed papers to receive hospice services. Hospice will arrange for DME to be delivered to pt home today. Family to call this SW when DME is in place and pt will then return home. Plan: Home with hospice services today. SANDRA Plascencia
[2022-07-23 09:59] LABS: Pathologist Review Reviewed
[2022-07-23 09:59] LABS: Pathologist Review Reviewed
[2022-07-23] MEDS: Menthol/Lanolin/Calamine/Znox 113 GM Tube 1 APPLIC TOPICAL ×2 (12:41→20:21)
[2022-07-23] MEDS: APIXABAN 2.5 MG TABLET (WCH) PO ×2 (12:42→20:21)
[2022-07-23] MEDS: Glucerna Shake 120 ML LIQUID PO (12:42)
[2022-07-23 13:21] VITALS: BP 122/56; PULSE 107; RESP 16; TEMP 36.6; O2SAT 98
[2022-07-23 13:22] VITALS: PULSE 107
[2022-07-23] MEDS: Metoprolol Tartrate 50 MG Tablet PO (13:22)
--- NOTE | 2022-07-23 13:36 | CASEMGMT ---
Addendum entered by Sally Zayas 07/23/22 15:38: Social Work Kate from [facility] here to evaluate pt. Pt does not qualify for the IPU. Per Kate, pt and family are planning on taking pt home tomorrow with hospice services. DME has been delivered. Physician updated. SANDRA Copeland Original Note: Social Work Plan was for pt to return home with hospice today. Awaiting DME to be set up in the home. RN requesting SW met with family over new concerns. SW met with pt , pt daughter, pt step daughter and daughter in law and physician. Family questioning ability to care for pt at home. SW presented options of [facility] with hospice and SW explained pt would be responsible for paying for facility as insurance does not cover this under hospice. Pt family does not feel this is a good option. Inpatient Hospice Unit discussed and family aware that a pt must meet specific criteria for the IPU. Family states their first choice is for pt to go to IPU if accepted and if this is not an option, pt will return home with family providing 24 hour care. Phone call to Kate at [facility] and requested pt be evaluated for IPU. Kate states someone will be over today to complete this. BERENICE will continue to follow. SANDRA Copeland
[2022-07-23 15:40] LABS: Pathologist Review Reviewed
[2022-07-23 20:16] VITALS: BP 104/59; PULSE 78; RESP 20; TEMP 36.8; O2SAT 94
[2022-07-23] MEDS: Tamsulosin HCl 0.4 MG Capsule PO (20:21)
[2022-07-23] MEDS: metroNIDAZOLE 500 MG Tablet PO (20:21)
[2022-07-23] MEDS: Ciprofloxacin 250 MG Tablet PO (20:21)
[2022-07-23 20:22] VITALS: BP 104/59; PULSE 78
[2022-07-23 20:50] LABS: Bedside Glucose 156 mg/dL (74-106)
[2022-07-24 03:00] VITALS: BP 112/47; PULSE 81; RESP 18; TEMP 36.9; O2SAT 94
[2022-07-24] MEDS: metroNIDAZOLE 500 MG Tablet PO ×2 (06:26→14:13)
[2022-07-24 06:45] LABS: Bedside Glucose 129 mg/dL (74-106)
[2022-07-24] MEDS: Juven (unflavored) Packet 1 PACKET PO (07:53)
[2022-07-24] MEDS: Menthol/Lanolin/Calamine/Znox 113 GM Tube 1 APPLIC TOPICAL (07:54)
[2022-07-24] MEDS: APIXABAN 2.5 MG TABLET (WCH) PO (07:57)
[2022-07-24] MEDS: Ciprofloxacin 250 MG Tablet PO (07:57)
[2022-07-24 09:00] VITALS: BP 88/44; PULSE 86; RESP 18; TEMP 36.6; O2SAT 95
--- NOTE | 2022-07-24 10:07 | DCINST_ITS ---
Discharge Instructions Diet Discharge Diet: No restrictions Dressing / Incision Call your doctor if you observe: Coldness, Increased Pain Follow Up Care Test Results: Test results from this visit will be discussed in further detail at your follow- up appointment, if applicable. Discharge Plan Admission Admit Date/Time: 07/21/22 18:10 Primary Reason for Your Visit: Gangrene. ADAM. Attending Provider: Theo Kirkland Primary Care Provider: Livan Mcfarland Consulting Providers: Edmond Copeland Discharge Orders/Prescriptions Prescriptions: New ciprofloxacin HCl 250 mg Tablet 250 mg PO BID Qty: 10 0RF diphenhydramine HCl [Banophen] 25 mg Capsule 25 mg PO Q6H PRN PRN (Reason: Allergic reaction) Qty: 0 0RF metronidazole 500 mg Tablet 500 mg PO TID Qty: 15 0RF morphine concentrate 10 mg/0.5 mL Syringe 10 mg PO/SL Q2H PRN PRN (Reason: Pain Score 6-10) 5 Days Qty: 50 0RF lorazepam [Lorazepam Intensol] 2 mg/mL concentrate 1 mg sublingual QHS PRN (Reason: anxiety) 5 Days Qty: 30 0RF Continued lidocaine-prilocaine 2.5-2.5 % cream 1 applic topical ONCE PRN (Reason: port access) 30 Days Qty: 30 2RF tamsulosin 0.4 MG capsule 0.4 mg PO QHS acetaminophen [Tylenol] 325 mg tablet 650 mg PO Q4H PRN (Reason: Pain) Discontinued metformin 1,000 mg tablet 1,000 mg PO BID lisinopril 20 mg tablet 20 mg PO BID lovastatin 40 mg tablet 40 mg PO QHS cholecalciferol (vitamin D3) 1,000 unit tablet 25 mcg PO DAILY metoprolol tartrate 50 MG tablet 50 mg PO BID lenalidomide [Revlimid] 10 mg capsule 10 mg PO DAILY doxycycline hyclate 100 mg capsule 100 mg PO BID Qty: 20 0RF amoxicillin-pot clavulanate 875-125 mg tablet 1 tab PO BID Qty: 20 0RF omega-3 fatty acids [Fish Oil Concentrate] 1,000 mg Capsule 1,000 mg PO BID glimepiride 2 mg tablet 2 mg PO DAILY Javier (with collagen) 7-7-1.5 gram powder in packet 1 packet PO BIDCM Eliquis 2.5 mg tablet 2.5 mg PO BID Referrals / Follow Up: Livan Mcfarland MD [Primary Care Provider] - Disposition Disposition (needs filled in before D/C Order can be placed): Hospice in Home
--- NOTE | 2022-07-24 10:14 | DS.PCM_ITS ---
Providers Date of Admission: 07/21/22 Primary Care Physician: Dr. Livan Mcfarland MD Consultations 07/21/22 23:12 Consult: Onc/Wound/programmer developer Routine Comment: Reason for Consult:: right foot Reason For Visit: ACTUTE KIDNEY INJURY, ANEMIA, DEBILILTY Diagnosis Discharge Diagnosis (1) Acute blood loss anemia: Status: Acute Code(s): D62 - Acute posthemorrhagic anemia Plan: Transfused 2 units PRBCs 2/2 MDS Keep Hg greater than of equal to 8. (2) ADAM (acute kidney injury): Status: Acute Code(s): N17.9 - Acute kidney failure, unspecified Plan: Improved Baseline creatinine 1.13. avoid nephrotoxic agents. (3) Gangrene of right foot: Status: Acute Code(s): I96 - Gangrene, not elsewhere classified Plan: Worsening on meropenem not amenable to surgery, other than an ADAM, which the patient declined. (4) Atherosclerosis of [place] arteries of extremities with gangrene, right leg: Status: Acute Code(s): I70.261 - Atherosclerosis of [place] arteries of extremities with gangrene, right leg Plan: Angiogram on 12: SFA/popliteal occulusion Not amenable to bypass Definitive treatment would be an AKA, which pt declines. (5) Debility: Status: Acute Code(s): R53.81 - Other malaise Plan: due to multiple medical comorbidities PT OT (6) Drug rash: Status: Acute Code(s): L27.0 - Generalized skin eruption due to drugs and medicaments taken internally Plan: ongoing with associated eosinophilia suspect PCN (was on amox/[place]) DC meropenem (7) Eosinophilia: Status: Acute Code(s): D72.10 - Eosinophilia, unspecified Plan: Eosinophils jumped up to 29,000 yesterday. May be due to the amoxicillin that he was taking which has been discontinued. No additional work-up as patient is currently hospice. Plan Chronic conditions: * chronic use of anticoagulation-I have elected to leave the patient on his Eliquis at this time, I do not believe he is bleeding anywhere * type 2 diabetes-patient's blood sugars will be monitored, sliding scale insulin will be given as needed * myelodysplastic syndrome-complicates care, management, recovery, and prognosis * coronary artery disease-this appears stable at this time, patient will remain on his present medications Again the patient requests a DNR CC arrest without intubation CODE STATUS, there will be no transfer to the ICU or use of pressor agents for this patient. 07/22: I discussed with patient and his step kids. Explained that given that he is currently stable my concern is that he may eventually further decompensate given his necrosis and high likelihood of progression to severe infection. I recommended hospice. Hospice to meet with patient and family today to address goals of care and see if the patient would wish to move forward with hospice or not. 07/23: Discussed with family. Had a family meeting where he discussed with the patient's , daughters as well as other family members. Still recommend hospice. They are unsure if they can manage him at home at this time. Last for hospice to come and reevaluate to see if the patient would be a candidate for the inpatient hospice unit. If that does not then they will try to do facilitate him going home with hospice on the . 07/24: Discharge home with hospice. Discussed with the patient's stepchildren today. Medications at Discharge Home Medications tamsulosin 0.4 mg capsule 0.4 mg PO QHS URINE FLOW 09/08/18 lidocaine-prilocaine 2.5 %-2.5 % topical cream 1 applic topical ONCE PRN port access 30 days #30 grams 05/20/21 acetaminophen 325 mg tablet (Tylenol) 650 mg PO Q4H PRN Pain 07/21/22 ciprofloxacin HCl 250 mg tablet 250 mg PO BID #10 tabs 07/24/22 diphenhydramine HCl 25 mg capsule (Banophen) 25 mg PO Q6H PRN PRN Allergic reaction #0 caps 07/24/22 lorazepam 2 mg/mL oral concentrate (Lorazepam Intensol) 1 mg (0.5 mL) sublingual QHS PRN anxiety 5 days #30 mL 07/24/22 metronidazole 500 mg tablet 500 mg PO TID #15 tabs 07/24/22 morphine concentrate 10 mg/0.5 mL oral syringe (FOR ORAL USE ONLY) 10 mg (0.5 mL) PO/SL Q2H PRN PRN Pain Score 6-10 5 days #50 ea 07/24/22 Hospital Course Operations None Procedures None Summary of Care Provided Minutes Spent on Discharge: 35 Physical Exam Const alert and no apparent distress General Appearance: cooperative HEENT normocephalic and head/scalp atraumatic Extremity Extremity Narrative: Diffuse edema throughout. Skin Skin Narrative: Diffuse macular rash throughout. Weight / BMI Weight Weight: 114.714 kg Body Mass Index (BMI) 32.4 ABG / Lab / Microbiology Data Result Diagrams: 07/23/22 06:40 07/23/22 06:40 Laboratory: Laboratory Results - last 24 hr 07/23/22 06:40: Diff Path Review Reviewed 07/23/22 20:20: POC Glucose 156 H 07/24/22 06:25: POC Glucose 129 H Microbiology: Microbiology 07/21/22 13:48 Urine, Clean Catch Urine Culture - Final Culture exhibits no growth. 07/21/22 13:42 Blood Culture (Wb) - Port Blood Culture - Preliminary No growth in 48 hours. 07/21/22 12:29 Blood Culture (Wb) - Port Blood Culture - Preliminary No growth in 48 hours. D/C Instructions Discharge Diet: No restrictions Call your doctor if you observe: Coldness, Increased Pain Meaningful Use Info Meaningful Use Diagnoses (Choose all that apply): None applicable Discharge Plan Admission Admit Date/Time: 07/21/22 18:10 Primary Reason for Your Visit: Gangrene. ADAM. Attending Provider: Theo Kirkland Primary Care Provider: Livan Mcfarland Consulting Providers: Edmond Copeland Discharge Orders/Prescriptions Prescriptions: New ciprofloxacin HCl 250 mg Tablet 250 mg PO BID Qty: 10 0RF diphenhydramine HCl [Banophen] 25 mg Capsule 25 mg PO Q6H PRN PRN (Reason: Allergic reaction) Qty: 0 0RF metronidazole 500 mg Tablet 500 mg PO TID Qty: 15 0RF morphine concentrate 10 mg/0.5 mL Syringe 10 mg PO/SL Q2H PRN PRN (Reason: Pain Score 6-10) 5 Days Qty: 50 0RF lorazepam [Lorazepam Intensol] 2 mg/mL concentrate 1 mg sublingual QHS PRN (Reason: anxiety) 5 Days Qty: 30 0RF Continued lidocaine-prilocaine 2.5-2.5 % cream 1 applic topical ONCE PRN (Reason: port access) 30 Days Qty: 30 2RF tamsulosin 0.4 MG capsule 0.4 mg PO QHS acetaminophen [Tylenol] 325 mg tablet 650 mg PO Q4H PRN (Reason: Pain) Discontinued metformin 1,000 mg tablet 1,000 mg PO BID lisinopril 20 mg tablet 20 mg PO BID lovastatin 40 mg tablet 40 mg PO QHS cholecalciferol (vitamin D3) 1,000 unit tablet 25 mcg PO DAILY metoprolol tartrate 50 MG tablet 50 mg PO BID lenalidomide [Revlimid] 10 mg capsule 10 mg PO DAILY doxycycline hyclate 100 mg capsule 100 mg PO BID Qty: 20 0RF amoxicillin-pot clavulanate 875-125 mg tablet 1 tab PO BID Qty: 20 0RF omega-3 fatty acids [Fish Oil Concentrate] 1,000 mg Capsule 1,000 mg PO BID glimepiride 2 mg tablet 2 mg PO DAILY Javier (with collagen) 7-7-1.5 gram powder in packet 1 packet PO BIDCM Eliquis 2.5 mg tablet 2.5 mg PO BID Referrals / Follow Up: Livan Mcfarland MD [Primary Care Provider] - Disposition Disposition (needs filled in before D/C Order can be placed): Hospice in Home Charges/Coding Visit Charges Inpatient E&M: 57068 Disch Hosp >30min
[2022-07-24 11:27] VITALS: BP 110/53; PULSE 80; RESP 18; TEMP 36.9; O2SAT 100
[2022-07-24 11:31] LABS: Bedside Glucose 168 mg/dL (74-106)
[2022-07-24] MEDS: Insulin Lispro 100 UNIT/ML INSULN.PEN SC (11:32)
--- NOTE | 2022-07-24 11:35 | PCA ---
transportation set up for pt to return home with hospice, leaf size picker time 1400
--- NOTE | 2022-07-24 12:07 | NURSING ---
Call from Suzi at HOSP[facility] asking when pt was getting picked up today so they could have a nurse set up to go to their house today. She was informed that he will be leaving today at 2:00pm.
[2022-07-24] MEDS: Glucerna Shake 120 ML LIQUID PO (14:13)
== END 2022-07-24 16:25 | disposition hospice, home (50) | DRG 809 ==
LOC: ED 16:06 → MS3 18:24
PROVIDERS: Admitting Provider Internal Medicine; Emergency Provider Emergency Medicine; PCP Family Medicine
DX: D61.818 Other pancytopenia (principal); I70.261 Atherosclerosis of native arteries of extremities with gangrene, right leg; N17.9 Acute kidney failure, unspecified; D62 Acute posthemorrhagic anemia; D46.9 Myelodysplastic syndrome, unspecified; E11.9 Type 2 diabetes mellitus without complications; I44.7 Left bundle-branch block, unspecified; I25.10 Atherosclerotic heart disease of native coronary artery without angina pectoris; I10 Essential (primary) hypertension; E78.5 Hyperlipidemia, unspecified; L27.0 Generalized skin eruption due to drugs and medicaments taken internally; Z87.891 Personal history of nicotine dependence; Z79.01 Long term (current) use of anticoagulants; R53.81 Other malaise; Z80.3 Family history of malignant neoplasm of breast; Z79.84 Long term (current) use of oral hypoglycemic drugs
CPT/HCPCS: 36415; 36591; 71045; 73630; 80048; 80053; 81001; 82962; 83605; 85025; 85610; 85730; 86850; 86900; 86901; 86920; 86922; 87040; 87086; 93005; 97802; 99285; J2185; J7030; J7040; J7050; P9016; A4216